=== PATIENT | female | born 1990 | race Caucasian/White ===

== ENCOUNTER 2017-01-02 17:49 | Emergency (ER) | payer MEDICAID ==
[~2017-01-02] VITALS: Ht 162.6 cm; Wt 90.7 kg
--- OUTSIDE RECORDS SUMMARY | 2017-01-02 17:55 | XMS REPORT ---
Author Author RENETTA DASILVA Organization [employer] Address Unknown Phone Unavailable Care Team Providers Care Underwriting Consultant Name Role Phone RENETTA DASILVA CP Unavailable Allergies, Adverse Reactions, Alerts Substance Reaction Event Type N.K.D.A. Info Not Available Non Drug Allergy Problems Problem Type Condition Code Onset Dates Condition Status Problem Migraine without aura and with status migrainosus, not intractable G43.001 Active Problem Morbid obesity due to excess calories E66.01 Active Problem Obesity (BMI 30-39.9) E66.9 Active Problem Lumbago with sciatica, right side M54.41 Active Problem Other chronic pain G89.29 Active Problem Lumbago with sciatica, left side M54.42 Active Problem Family history of hypertension Z82.49 Active Problem History of substance abuse Z87.898 Active Problem Routine health maintenance Z00.00 Active Problem Family history of diabetes mellitus Z83.3 Active Assessment Nonintractable headache, unspecified chronicity pattern, unspecified headache type R51 Active Problem Family history of migraine Z82.0 Active Problem Gastroesophageal reflux disease without esophagitis K21.9 Active Medications Medication Code System Code Instructions Start Date End Date Status Dosage Ibuprofen [facility] [address]-00 400 MG Orally Three times a day 1 tablet Tylenol Extra Strength [facility] [address]-18 500 MG Orally every 6 hrs 2 tablets as needed Procedures Procedure Coding System Code Date THER/PROPH/DIAG INJ, SC/IM CPT-4 58238 Dec 10, 2015 Office Visit, Est Pt., Level 3 CPT-4 79341 Dec 10, 2015 TORADOL (IM) 15 MG/ML (UP TO 15 MG) CPT-4 J1885 Dec 10, 2015 Vital Signs Date/Time: Dec 10, 2015 Cardiac Monitoring Heart Rate 88 bpm Weight 218.0 lbs Height 64.5 in BMI 36.84 Index Blood Pressure Diastolic 72 mmHg Blood Pressure Systolic 116 mmHg Results No Known Results Summary Purpose [employer] Submission
--- OUTSIDE RECORDS SUMMARY | 2017-01-02 17:58 | XMS REPORT | Clinical Summary ---
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 MG TABS [id number] METRONIDAZOLE Inactive AMOXICILLIN 500 MG TABS Take one tab by mouth 3 times daily, morning, afternoon and evening for 7 days. AMOXICILLIN 500 MG TABS [id number] AMOXICILLIN Inactive AMOXICILLIN 500 MG CAPS 2 po BID x 10 days AMOXICILLIN 500 MG CAPS [id number] AMOXICILLIN Inactive AMOXICILLIN 500 MG CAPS 2 po BID x 10 days AMOXICILLIN 500 MG CAPS 930845 AMOXICILLIN Inactive PENICILLIN V POTASSIUM 500 MG TABS 1 TID PENICILLIN V POTASSIUM 500 MG TABS 668273 PENICILLIN V POTASSIUM Inactive BACTRIM DS 800-160 MG TABS 1 po BID x 10 days BACTRIM DS 800-160 MG TABS 715315 SULFAMETHOXAZOLE-TRIMETHOPRIM Inactive ZITHROMAX 250 MG TAB 2 po today, then 1 po q days 2-5 ZITHROMAX 250 MG TAB [id number] AZITHROMYCIN Inactive TAMIFLU 75 MG CAPS 1 bid x 5 days TAMIFLU 75 MG CAPS 951964 OSELTAMIVIR PHOSPHATE Inactive AZITHROMYCIN 250 MG TABS 2 po qd x 1 day, then 1 po qd x 4 days AZITHROMYCIN 250 MG TABS [id number] AZITHROMYCIN Inactive MEDROL (NISA) 4 MG TABS 6 tabs on day 1, 5 tabs on day 2, 4 tabs on day 3, 3 tabs on day 4, 2 tabs on day 5, 1 tab on day 6 MEDROL ( NISA) 4 MG TABS 028487 METHYLPREDNISOLONE Inactive SUPRAX 400 MG CAPS Take one tablet twice daily for 7 days SUPRAX 400 MG CAPS CEFIXIME Inactive AMITRIPTYLINE HCL 50 MG TAB 1 po q hs for sleep AMITRIPTYLINE HCL 50 MG TAB 399194 AMITRIPTYLINE HCL Inactive ZITHROMAX 250 MG TAB 2 po today, then 1 po q days 2-5 ZITHROMAX 250 MG TAB [id number] AZITHROMYCIN Inactive Immunizations Vaccine Administration Date Value Standard Description Seasonal influenza vaccine, injectable, containing preservative, for > 3 years old (Afluria, FluLaval, Fluzone, Fluvirin, Fluarix, Agriflu(>=18 yo)) Fluzone (>3 yrs.) [[id number]] Influenza, seasonal, injectable pneumococcal immunization administered Pneumovax 23 [CVX33] pneumococcal polysaccharide vaccine, 23 valent Seasonal influenza vaccine, injectable, containing preservative, for > 3 years old (Afluria, FluLaval, Fluzone, Fluvirin, Fluarix, Agriflu(>=18 yo)) Fluzone (>3 yrs.) [[id number]] Influenza, seasonal, injectable Seasonal influenza vaccine, injectable, containing preservative, for > 3 years old (Afluria, FluLaval, Fluzone, Fluvirin, Fluarix, Agriflu(>=18 yo)) Fluzone (>3 yrs.) [IIE303] Influenza, seasonal, injectable hepatitis B vaccine #1 given Engerix-B Adult hepatitis B vaccine , unspecified formulation MPSV4 (meningococcal polysaccharide vaccination) Menactra meningococcal polysaccharide vaccine (MPSV4) hepatitis A immunization #1 Havrix-Adult hepatitis A vaccine, unspecified formulation dT (Diphtheria and Tetanus) booster given Historical Td(adult) unspecified formulation DPT immunization #5 Historical oral polio vaccine (OPV) #3 Historical poliovirus vaccine, unspecified formulation MMR (measles, mumps, rubella) virus immunization #2 Historical DPT immunization #4 DPT DPT immunization #3 DPT DPT immunization #2 DPT oral polio vaccine (OPV) #2 Historical poliovirus vaccine, unspecified formulation MMR (measles, mumps, rubella) virus immunization #1 Historical DPT immunization #1 DPT oral polio vaccine (OPV) #1 Historical poliovirus vaccine, unspecified formulation Vital Signs Date Name Value Unit Range Description blood pressure, diastolic - 8462-4 102 mm[Hg] BP jorge blood pressure, systolic - 8480-6 135 mm[Hg] BP sys height E&M - 8302-2 64 [in_us] Bdy height pulse rate E&M - 8867-4 106 /min Heart rate temperature E&M 98.8 [degF] Body temperature weight E&M - 3141-9 233.31 [lb_av] Weight Measured blood pressure, diastolic - 8462-4 90 mm[Hg] BP jorge blood pressure, systolic - 8480-6 137 mm[Hg] BP sys pulse rate E&M - 8867-4 94 /min Heart rate temperature E&M 98.5 [degF] Body temperature weight E&M - 3141-9 246.5 [lb_av] Weight Measured blood pressure, diastolic - 8462-4 73 mm[Hg] BP jorge blood pressure, systolic - 8480-6 138 mm[Hg] BP sys pulse rate E&M - 8867-4 106 /min Heart rate temperature E&M 98.3 [degF] Body temperature weight E&M - 3141-9 250 [lb_av] Weight Measured Diagnostic Results Date Name Value Unit Range Description Lab Report: Basic Metabolic Panel - Chemistry sodium, serum 144 mmol/L 158-429 4534/06/08 potassium, serum 4.3 mmol/L 3.5-5.2 chloride, serum 104 mmol/L 98-107 carbon dioxide, venous blood 28.2 mmol/L 21.0-32.0 blood glucose 86 mg/dL 65-110 calcium, serum 9.7 mg/dL 8.5-10.1 urea nitrogen, blood 13 mg/dL 7-18 creatinine, serum 0.66 mg/dL 0.55-1.30 Lab Report: [id number] - Chemistry hemoglobin A1C, blood, as % of total hemoglobin 5.3 % 4.3-6.0 Encounters Code Encounter Date Provider Facility CPT-77351 Level 4 Est. Patient 14:18:58 CDT Corky Mckeno DO [facility] CPT-27868 Level 3 Est. Patient 16:47:47 CDT Renetta Ryan [facility] CPT-43242 Level 3 Est. Patient 11:04:11 METAL PAINTER Jani Marrero MD [facility] CPT-18728 Level 3 Est. Patient 12:02:27 METAL PAINTER Andrei Nichols MD [facility] CPT-69402 Level 3 Est. Patient 12:47:17 METAL PAINTER Andrei Nichols MD [facility] CPT-56472 Level 3 Est. Patient 14:51:20 METAL PAINTER Shikha Randolph [facility] CPT-86777 Level 3 Est. Patient 10:42:38 CDT Shikha Randolph [facility] CPT-45395 Level 3 Est. Patient 18:20:39 CDT Prisca Lockwood MD PhD [facility] CPT-78160 Level 3 Est. Patient 16:42:47 METAL PAINTER Rosalie Boyd [facility] CPT-31090 Level 3 Est. Patient 14:34:36 METAL PAINTER Rosalie Boyd [facility] CPT-34261 Level 4 Est. Patient 10:23:07 METAL PAINTER Andrei Nichols MD [facility]-20337 Level 3 Est. Patient 16:47:31 METAL PAINTER Andrei Nichols MD [facility]-67754 Level 3 Est. Patient 11:59:14 CDT Rosalie Boyd [facility]-54722 Level 3 Est. Patient 15:30:34 CDT Giovany URBINA [facility]-48103 Level 3 Est. Patient 11:03:03 CDT Rosalie Boyd [facility]-54108 Level 3 Est. Patient 11:08:07 CDT Rosalie Boyd [facility] CPT-39718 Level 3 Est. Patient 14:07:32 CDT Andrei Nichols MD [facility]-67262 Level 3 Est. Patient 17:08:28 CDT Andrei Nichols MD [facility]-59670 Level 3 Est. Patient 13:10:13 CDT Jani Marrero MD [facility]-26319 Level 3 Est. Patient 11:27:12 CDT Jani Marrero MD [facility]-09222 Level 3 Est. Patient 13:44:42 CDT Andrei Nichols MD [facility]-70453 Level 3 Est. Patient 12:34:57 METAL PAINTER Andrei Nichols MD [facility]-15843 Level 3 Est. Patient 15:30:06 CDT Jani Marrero MD [facility] CPT-65862 Level 3 Est. Patient 21:59:00 CDT Corky Juliann Mike HARDIN [facility] CPT-18325 Level 3 Est. Patient 17:12:49 CDT Andrei Nichols MD [facility] CPT-67391 Level 4 Est. Patient 12:27:45 METAL PAINTER Andrei Nichols MD [facility] CPT-08875 Level 3 Est. Patient 12:15:34 METAL PAINTER Andrei Nichols MD [facility] Procedures Code Procedure Name Date Entry Date Standard Description CPT-68897 Knee, left, 3V - XRAY USE ONLY 14:53:02 CDT CPT-OV Office Visit 11:36:40 CDT CPT-49864 Administration 2+ single or combination vaccines inc oral 07:50:30 CDT CPT-89618 Administration single or combination vaccine inc oral 07 :50:30 CDT CPT-71773 Pneumovax 07:50:30 CDT CPT-51281 Influenza split virus > age 3 07:50:30 CDT CPT-OV Office Visit 11:49:10 METAL PAINTER CPT-55650 Nexplanon Removal with Reinsertion 14:02:06 METAL PAINTER CPT-J7307 Nexplanon (Implant) 14:02:06 METAL PAINTER CPT-OV Office Visit 14:02:06 METAL PAINTER CPT-OV Office Visit 11:58:04 METAL PAINTER CPT-59185 Administration single or combination vaccine inc oral 11 :31:07 CDT CPT-49890 Influenza split virus > age 3 11:31:07 CDT CPT-68818 Administration single or combination vaccine inc oral 10 :34:13 CDT CPT-90831 Influenza split virus > age 3 10:34:13 CDT
--- OUTSIDE RECORDS SUMMARY | 2017-01-02 17:58 | XMS REPORT ---
Author Author [facility] [employer] [facility] Medical Staff Organization [facility] Address [address], [place] [id number] Phone [phone] Care Team Providers Care Yarn Conditioner Name Role Phone FELIPE MONROE MD PP [phone] Summary purpose TRANSITION OF CARE AUTO GENERATION Chief Complaint and Reason for Visit No authorized Reason for Visit (Admitting Diagnosis) is available for this visit. Problem list No authorized problems tracked for continuity of care are available for this visit. Encounters No authorized problems tracked for encounter diagnoses are available for this visit. Medications No medications recorded for this patient visit Allergies, adverse reactions, alerts Allergen Category Ingredient Status Reaction Severity Onset No Known Drug Allergy No known drug allergies No known drug allergies Confirmed or Verified Immunizations No immunizations recorded for this patient visit Relevant diagnostic tests and/or laboratory data RESULTS Radiology Results [id number] HAND XRAY - 3 VIEW PACs Image DATE OF EXAM: Jan 29 2015 RAD 0730-HAND XRAY-3 VIEW- LEFT: RADIOLOGY REPORT DATE OF SERVICE: 01/29/15 HISTORY: Hand injury with laceration LEFT HAND 3 VIEWS 0310 HOURS There is no fracture. There are no opaque foreign bodies. The soft tissues appear unremarkable. IMPRESSION: Normal hand. MD HILLARY Gonzales/nm01/29/2015 07:51:00 / 01/29/2015 08:12:51 cc:Dr. Felipe Monroe This document has been electronically Signed by: On: DATE OF EXAM: Jan 29 2015 RAD 0730-HAND XRAY-3 VIEW- LEFT: RADIOLOGY REPORT DATE OF SERVICE: 01/29/15 HISTORY: Hand injury with laceration LEFT HAND 3 VIEWS 0310 HOURS There is no fracture. There are no opaque foreign bodies. The soft tissues appear unremarkable. IMPRESSION: Normal hand. MD HILLARY Gonzales/mayda01/29/2015 07:51:00 / 01/29/2015 08:12:51 cc:Dr. Felipe Monroe This document has been electronically Signed by: SUE MITCHELL MD: Jan 29 2015 11:08A Result Amended on 2015-01-29 at 11:08:15. Previous status was [place]. History of procedures No procedures recorded for this patient visit. Functional status Functional Status Finding Observation Time Abdomen Appearance round :25 Abdomen soft :25 Kapoor no :25 Urination normal : Quality sym/unlabored : Cough absent : Secretions no : Airway natural : Chest Tube no : Oxygen no :36 Temp >100.4 no : Temp <96.8 no : Chills with rigors no : HR > 90bpm no : Respirations > 20 no : Systolic <90 no : headache stiff neck no : Rapid Resp no : Nursing Note DC instructions given with noted high anxiety. Friend at bedside et voiced an understanding of instructions as well as pt. Pt ambulated in good condition with instructions in hand along with scripts of hydrocodone, augmenten et home pk of hydrocodone. :36 Vital signs Type Value Date Respiration Rate 22breaths per minute :36 Pulse 82beats per minute :36 Oxygen Saturation 100% :36 BP Systolic 128mmHg :36 BP Diastolic 79mmHg :36 Temperature 98.3F :36 Height 64inches : Weight 167.4LB :17 Social history No Social History or smoking status observations were recorded for this visit. ( Unknown if ever smoked.) Treatment Plan No treatment plan text is available for this visit. Hospital discharge instructions Dismissal Condition good Disposition on DC home DC Inst/Educ Give yes Med/Side Effects Rev yes Flu Vac 2015 Tetanus Vac Not current
--- OUTSIDE RECORDS SUMMARY | 2017-01-02 18:00 | XMS REPORT | Clinical Summary ---
Author Author Admin, E Organization [facility] Address Unknown Phone Unavailable Allergies, Adverse Reactions, [...] Sinusitis, frontal, acute 461.1 Resolved Shikha Yokum EVENT DECORATOR AND DESIGNER Acute frontal sinusitis Pharyngitis 462 Resolved Shikha Yokum EVENT DECORATOR AND DESIGNER Acute pharyngitis Scabies 133.0 Resolved Shikha Yokum EVENT DECORATOR AND DESIGNER Scabies Folliculitis 704.8 Resolved Shikha Yokum EVENT DECORATOR AND DESIGNER Other specified diseases of hair and hair follicles Cough 786.2 Resolved Andrei Nichols MD Cough Dysuria 788.1 Active Shikha Randolph APRN Dysuria Vomiting 787.03 Active Andrei Nichols MD Vomiting alone Pharyngitis 462 Active Andrei Nichols MD Acute pharyngitis SINUSITIS, ACUTE 461.9 Active Jani Marrero MD Acute sinusitis, unspecified PEDICULUS CAPITIS ICD-132.0 Inactive Andrei Nichols MD [...] Inactive Ary Pool PA ECZEMA ICD-692.9 Inactive Shikha Randolph EVENT DECORATOR AND DESIGNER OTITIS MEDIA ICD-382.9 Inactive Ary URBINA 09/16 PHARYNGITIS ICD-462 Inactive Andrei Nichols MD UNSPECIFIED DISORDER TEETH&SUPPORTING STRUCTURES ICD-525.9 12/29 Inactive Shikha Randolph EVENT DECORATOR AND DESIGNER PHARYNGITIS-ACUTE ICD-462 Inactive Rosalie Boyd EVENT DECORATOR AND DESIGNER DIARRHEA ICD-787.91 Inactive Andrei Nichols MD SHOULDER PAIN ICD-719.41 Inactive Shikha Randolph EVENT DECORATOR AND DESIGNER NAUSEA AND VOMITING ICD-787.01 Inactive Andrei Nichols MD DIARRHEA, ACUTE ICD-787.91 Inactive Andrei Nichols MD ABSCESS, SKIN ICD-682.9 Inactive Andrei Nichols MD COUGH ICD-786.2 Inactive Prisca Lockwood MD PhD 07/08 SEXUAL ACTIVITY, HIGH RISK ICD-V69.2 Inactive Prisca Lockwood MD PhD VAGINAL DISCHARGE ICD-623.5 Inactive rPisca Lockwood MD PhD TINEA PEDIS ICD-110.4 Inactive Prisca Lockwood MD PhD Pharyngitis, acute ICD-462 Inactive Prisca Lockwood MD PhD Diarrhea, acute ICD-787.91 Inactive Prisca Lockwood MD PhD Dental caries ICD-521.00 Inactive Shikha Randolph EVENT DECORATOR AND DESIGNER Tooth pain ICD-525.9 Inactive Prisca Lockwood MD PhD Head lice ICD-132.0 Inactive Prisca Lockwood MD PhD Upper respiratory infection ICD-465.9 Inactive Prisca Lockwood MD PhD Sinusitis, frontal, acute ICD-461.1 Inactive Shikha Randolph EVENT DECORATOR AND DESIGNER Pharyngitis ICD-462 Inactive Shikha Yokum EVENT DECORATOR AND DESIGNER 2013 Scabies ICD-133.0 Inactive Shikha Lockeum EVENT DECORATOR AND DESIGNER 12/29 Folliculitis ICD-704.8 Inactive Shikha Randolph EVENT DECORATOR AND DESIGNER Cough ICD-786.2 Inactive Andrei Nichols MD Medication List Medication Instructions Start Date Stop Date Generic Name NDC Status Provider Patient Instruction ZITHROMAX 250 MG TAB 2 po today, then 1 po q days 2-5 AZITHROMYCIN [id number] Active Jani Marrero MD Active IBUPROFEN 800 MG TABS 1 tab PO TID IBUPROFEN 32621570640 Active Jani Marrero MD Active WELLBUTRIN SR 100 MG ORAL [id number] 1 TAB PO DAILY BUPROPION HCL 27111699240 Active Jani Marrero MD Active AMITRIPTYLINE HCL 50 MG TAB 1 po q hs for sleep AMITRIPTYLINE HCL 14683997899 Active Jani Marrero MD Active PROMETHAZINE HCL 25 MG TABS 1 four times a day as needed for vomiting PROMETHAZINE HCL 25409540271 No Longer Active Jani Marrero MD Active AMOXICILLIN 500 MG TABS 2 tabs twice a day for 10 days AMOXICILLIN 73747302292 No Longer Active Jani Marrero MD Active SEROQUEL 200 MG ORAL TABS Take 1 tablet at hs QUETIAPINE FUMARATE 02867063369 No Longer Active Jani Marrero MD Active FETZIMA 40 MG ORAL [id number] LEVOMILNACIPRAN HCL 37955051268 No Longer Active Jani Marrero MD Active PROAIR HFA 108 (90 BASE) MCG/ACT AERS 2 puffs four times a day as needed 2015 ALBUTEROL SULFATE 31410794430 Active Andrei Nichols MD Active KLONOPIN 1 MG TABS 1 tablet TID CLONAZEPAM 83741636354 Active Andrei Nichols MD Active PROAIR HFA 108 (90 BASE) MCG/ACT AERS 2 puffs four times a day as needed 2011 ALBUTEROL SULFATE 89153663844 No Longer Active Alondra Denton MD Active IBUPROFEN 600 MG TAB 1 tablet three times a day as needed IBUPROFEN 60543118929 No Longer Active Alondra Denton MD Active LATUDA 20 MG TABS 1 tab at at night with meal LURASIDONE HCL 74405714360 No Longer Active Alondra Denton MD Active CYCLOBENZAPRINE HCL 10 MG TABS 1/2 to 1 tablet every 4 hours CYCLOBENZAPRINE HCL 34631075952 No Longer Active Alondra Denton MD Active CYCLOBENZAPRINE HCL 10 MG TABS 1/2 to 1 tablet by mouth three times daily as needed for muscle spasm/pain CYCLOBENZAPRINE HCL 00309942150 No Longer Active Alondra Denton MD Active SUPRAX 400 MG CAPS Take one tablet twice daily for 7 days CEFIXIME 35401706138 No Longer Active Shikha Yokum EVENT DECORATOR AND DESIGNER Active TESSALON PERLES 100 MG CAP 1 tablet by mouth 3 times daily 01/20 BENZONATATE 13130810267 No Longer Active Shikha Yokum EVENT DECORATOR AND DESIGNER Active HYDROXYZINE HCL 10 MG TABS 1 to 2 three times a day as needed for itching HYDROXYZINE HCL 89766206238 No Longer Active Shikha Yokum EVENT DECORATOR AND DESIGNER Active CYCLOBENZAPRINE HCL 10 MG TABS 1 three times a day as needed for back spasm CYCLOBENZAPRINE HCL 49187236690 No Longer Active Shikha Yokum EVENT DECORATOR AND DESIGNER Active SEROQUEL 200 MG TABS 1 tablet at bedtime. QUETIAPINE FUMARATE 82373398526 No Longer Active Shikha Yokum EVENT DECORATOR AND DESIGNER Active BACTRIM DS 800-160 MG TAB 1 tab by mouth twice daily TRIMETHOPRIM-SULFAMETHOXAZOLE 97781676086 No Longer Active Shikha Yokum EVENT DECORATOR AND DESIGNER Active STROMECTOL 3 MG TABS 5 tablets by mouth one time on an empty stomach, may repeat in 2 weeks if needed IVERMECTIN 54221795179 No Longer Active Shikha Yokum EVENT DECORATOR AND DESIGNER Active PERMETHRIN 5 % CREA apply neck to toes tonight and then rinse off in morning. repeat at 7 days PERMETHRIN 73254465338 No Longer Active Andrei Nichols MD Active MEDROL (NISA) 4 MG TABS 6 tabs on day 1, 5 tabs on day 2, 4 tabs on day 3, 3 tabs on day 4, 2 tabs on day 5, 1 tab on day 6 METHYLPREDNISOLONE 92366208326 No Longer Active Prisca Lockwood MD PhD Active AZITHROMYCIN 250 MG TABS 2 po qd x 1 day, then 1 po qd x 4 days AZITHROMYCIN 48435894344 No Longer Active Prisca Lockwood MD PhD Active CELEXA 20 MG TABS Take 1.5 tablets daily CITALOPRAM HYDROBROMIDE 47089470067 No Longer Active Prisca Lockwood MD PhD Active LOMOTIL 2.5-0.025 MG TAB 1 to 2 four times a day as needed for diarrhea 01/21 DIPHENOXYLATE-ATROPINE 83926592354 No Longer Active Prisca Lockwood MD PhD Active TAMIFLU 75 MG CAPS 1 bid x 5 days OSELTAMIVIR PHOSPHATE 45072539781 No Longer Active Rosalie Boyd APRN Active ZITHROMAX 250 MG TAB 2 po today, then 1 po q days 2-5 AZITHROMYCIN 15919045479 No Longer Active Rosalie Boyd APRN Active STROMECTOL 3 MG TABS 6 pills by mouth x 1; repeat in 10 days 2012 IVERMECTIN 49726552192 No Longer Active Rosalie Boyd APRN Active TYLENOL WITH CODEINE #3 300-30 MG TABS ONE TABLET FOUR TIMES A DAY NEEDED for pain or cough ACETAMINOPHEN-CODEINE 63273870928 No Longer Active Rosalie Boyd APRN Active GUAIFENESIN-CODEINE 100-10 MG/5ML SYRP 1 tsp PO q6h PRN cough GUAIFENESIN-CODEINE 62620290751 No Longer Active Rosalie Boyd APRN Active KEFLEX 500 MG CAP 1 po qid CEPHALEXIN 94911447269 No Longer Active Rosalie Boyd APRN Active GUAIFENESIN-CODEINE 100-10 MG/5ML SYRP 1 tsp PO q6h PRN cough GUAIFENESIN-CODEINE 16385341299 No Longer Active Rosalie Boyd APRN Active PROMETHAZINE HCL 25 MG TABS 1 four times a day as needed for nausea/vomiting PROMETHAZINE HCL 67528800436 No Longer Active Rosalie Boyd APRN Active LAMISIL AT 1 % CREA apply bid to rash TERBINAFINE HCL 57366727925 No Longer Active Andrei Nichols MD Active AMOXICILLIN 400 MG/5ML SUSR 6ml three times a day for 10 days AMOXICILLIN 78230740547 No Longer Active Andrei Nichols MD Active PROMETHAZINE HCL 25 MG TABS take 1 po Q 8 hours prn nausea and vomiting 12/11 PROMETHAZINE HCL 13640317750 No Longer Active Andrei Nichols MD Active BACTROBAN 2 % OINTMENT Apply bid to affected area MUPIROCIN 24440692153 No Longer Active Andrei Nichols MD Active GUAIFENESIN-CODEINE 100-10 MG/5ML SYRP 1 tsp PO q6h PRN cough GUAIFENESIN-CODEINE 96216659012 No Longer Active Andrei Nichols MD Active BACTRIM DS 800-160 MG TABS 1 po BID x 10 days SULFAMETHOXAZOLE-TRIMETHOPRIM 76042766100 No Longer Active Rosalie Boyd APRN Active GUAIFENESIN-CODEINE 100-10 MG/5ML SYRP 1-2 tsp PO q6h PRN cough GUAIFENESIN-CODEINE 08039007389 No Longer Active Giovany URBINA Active PREDNISONE 20 MG TABS 1 tablet by mouth twice daily for 2 days, then 1 daily for 2 days PREDNISONE 41509922513 No Longer Active Giovany URBINA Active HYDROCODONE-ACETAMINOPHEN 5-325 MG TABS 1/2 to 1 po q 4 hours prn pain 11/13 HYDROCODONE-ACETAMINOPHEN 71145728966 No Longer Active Rosalie Boyd APRN Active PENICILLIN V POTASSIUM 500 MG TABS 1 TID PENICILLIN V POTASSIUM 18803952716 No Longer Active Andrei Nichols MD Active SEROQUEL 50 MG TABS 1 tablet at HS QUETIAPINE FUMARATE 77157588619 No Longer Active Andrei Nichols MD Active SEROQUEL 100 MG TABS 1 tablet at HS QUETIAPINE FUMARATE 17892874840 No Longer Active Andrei Nichols MD Active TRIAMCINOLONE ACETONIDE 0.1 % CREA apply three times daily prn rash TRIAMCINOLONE ACETONIDE 31915405291 No Longer Active Andrei Nichols MD Active AMOXICILLIN 500 MG TABS take one tab po tid x 10 days AMOXICILLIN 17313771838 No Longer Active Andrei Nichols MD Active CELEXA 20 MG TABS 1and 1/2 tablets by mouth daily CITALOPRAM HYDROBROMIDE 67728765032 No Longer Active Ary Pool PA Active FLEXERIL 10 MG TAB 1/2 to one tablet every 12 hours as needed CYCLOBENZAPRINE HCL 78554730912 No Longer Active Ary Pool PA Active CLONAZEPAM 1 MG TABS take at bedtime CLONAZEPAM 86637167911 No Longer Active Ary Pool PA Active PERMETHRIN 5 % CREA applyhead to toes tonight and then rinse off in 18 hours. repeat at 7 days if needed. PERMETHRIN 06933841915 No Longer Active Ary Pool PA Active AMOXICILLIN 500 MG CAPS 2 po BID x 10 days AMOXICILLIN 04749482863 No Longer Active Andrei Nichols MD Active TYLENOL WITH CODEINE #3 300-30 MG TABS 1 to 2 four times a day as needed for pain ACETAMINOPHEN-CODEINE 64147496956 No Longer Active Reta Memo Active PREDNISONE 20 MG TAB 2 tabs daily for 5 days, then 1 daily for 5 days PREDNISONE 56741506609 No Longer Active Reta Memo Active LOMOTIL 2.5-0.025 MG TAB 1 to 2 four times a day as needed for diarrhea 05/28 DIPHENOXYLATE-ATROPINE 08466524926 No Longer Active Reta Memo Active ALPRAZOLAM 1 MG TABS 1 tab tid ALPRAZOLAM 45254893581 No Longer Active Reta Memo Active AMOXICILLIN 500 MG CAPS 2 po BID x 10 days AMOXICILLIN 64069732641 No Longer Active Andrei Nichols MD Active AMOXICILLIN 500 MG TABS Take one tab by mouth 3 times daily, morning, afternoon and evening for 7 days. AMOXICILLIN 48838406651 No Longer Active Virginia Alejandra RN Active VICODIN 5-300 MG TABS one tab PO Q 6 hours PRN pain HYDROCODONE-ACETAMINOPHEN 87977952284 No Longer Active Virginia Alejandra RN Active FLAGYL 500 MG TABS four tabs PO one time METRONIDAZOLE 52389530932 No Longer Active Alondra Denton MD Active MELOXICAM 15 MG TABS 1 po q day for pain with food MELOXICAM 89659169794 No Longer Active Alondra Denton MD Active AMOXICILLIN 400 MG/5ML SUSR 5ml po TID x 10 days AMOXICILLIN 99438692173 No Longer Active Jani Marrero MD Active NIX CREME RINSE 1 % LIQD apply as directed carlotta, repeat at 7 days PERMETHRIN 77820476411 No Longer Active Corky Mckeon DO Active QVAR 40 MCG/ACT AERS one puff three times a day as needed BECLOMETHASONE DIPROPIONATE 76365472837 No Longer Active Andrei Nichols MD Active METHOCARBAMOL 500 MG TABS 1 to 2 qid prn back spasm METHOCARBAMOL 93428198061 No Longer Active Andrei Nichols MD Active VISTARIL 25 MG CAPS 1-2 tablets three times a day as needed HYDROXYZINE PAMOATE 18564666430 No Longer Active Andrei Nichols MD Active SEROQUEL 100 MG TABS 1/2 TABLET at hs QUETIAPINE FUMARATE 78413577117 No Longer Active Aicha Rizzo RN Active BACTRIM DS 800-160 MG TAB 1 tab by mouth twice daily TRIMETHOPRIM-SULFAMETHOXAZOLE 74869434971 No Longer Active Prisca Lockwood MD PhD Active CYCLOBENZAPRINE HCL 10 MG TABS TAKE 1/2 - 1 TAB EVERY 12 HOURS NEEDED 2010 CYCLOBENZAPRINE HCL 58173147894 No Longer Active Andrei Nichols MD Active CYCLOBENZAPRINE HCL 10 MG TABS TAKE 1/2 - 1 TAB EVERY 12 HOURS NEEDED 2010 CYCLOBENZAPRINE HCL 10 MG TABS 069908 CYCLOBENZAPRINE HCL Inactive SEROQUEL 100 MG TABS 1/2 TABLET at hs SEROQUEL 100 MG TABS 911799 QUETIAPINE FUMARATE Inactive VISTARIL 25 MG CAPS 1-2 tablets three times a day as needed VISTARIL 25 MG CAPS 897154 HYDROXYZINE PAMOATE Inactive METHOCARBAMOL 500 MG TABS 1 to 2 qid prn back spasm METHOCARBAMOL 500 MG TABS 252180 METHOCARBAMOL Inactive QVAR 40 MCG/ACT AERS one puff three times a day as needed QVAR 40 MCG/ACT AERS BECLOMETHASONE DIPROPIONATE Inactive NIX CREME RINSE 1 % LIQD apply as directed tonight, repeat at 7 days NIX CREME RINSE 1 % LIQD PERMETHRIN Inactive MELOXICAM 15 MG TABS 1 po q day for pain with food MELOXICAM 15 MG TABS 763621 MELOXICAM Inactive ALPRAZOLAM 1 MG TABS 1 tab tid ALPRAZOLAM 1 MG TABS 039289 ALPRAZOLAM Inactive LOMOTIL 2.5-0.025 MG TAB 1 to 2 four times a day as needed for diarrhea 05/28 LOMOTIL 2.5-0.025 MG TAB 5814043 DIPHENOXYLATE-ATROPINE Inactive PREDNISONE 20 MG TAB 2 tabs daily for 5 days, then 1 daily for 5 days PREDNISONE 20 MG TAB 190440 PREDNISONE Inactive TYLENOL WITH CODEINE #3 300-30 MG TABS 1 to 2 four times a day as needed for pain TYLENOL WITH CODEINE #3 300-30 MG TABS 473927 ACETAMINOPHEN-CODEINE Inactive PERMETHRIN 5 % CREA applyhead to toes tonight and then rinse off in 18 hours. repeat at 7 days if needed. PERMETHRIN 5 % CREA 840681 PERMETHRIN Inactive CLONAZEPAM 1 MG TABS take at bedtime CLONAZEPAM 1 MG TABS 711043 CLONAZEPAM Inactive FLEXERIL 10 MG TAB 1/2 to one tablet every 12 hours as needed FLEXERIL 10 MG TAB CYCLOBENZAPRINE HCL Inactive CELEXA 20 MG TABS 1and 1/2 tablets by mouth daily CELEXA 20 MG TABS 006152 CITALOPRAM HYDROBROMIDE Inactive AMOXICILLIN 500 MG TABS take one tab po tid x 10 days AMOXICILLIN 500 MG TABS 742274 AMOXICILLIN Inactive TRIAMCINOLONE ACETONIDE 0.1 % CREA apply three times daily prn rash TRIAMCINOLONE ACETONIDE 0.1 % CREA 9475409 TRIAMCINOLONE ACETONIDE Inactive SEROQUEL 100 MG TABS 1 tablet at HS SEROQUEL 100 MG TABS 489819 QUETIAPINE FUMARATE Inactive SEROQUEL 50 MG TABS 1 tablet at HS SEROQUEL 50 MG TABS 439354 QUETIAPINE FUMARATE Inactive HYDROCODONE-ACETAMINOPHEN 5-325 MG TABS 1/2 to 1 po q 4 hours prn pain 11/13 HYDROCODONE-ACETAMINOPHEN 5-325 MG TABS 792395 HYDROCODONE- ACETAMINOPHEN Inactive PREDNISONE 20 MG TABS 1 tablet by mouth twice daily for 2 days, then 1 daily for 2 days PREDNISONE 20 MG TABS 976177 PREDNISONE Inactive GUAIFENESIN-CODEINE 100-10 MG/5ML SYRP 1-2 tsp PO q6h PRN cough GUAIFENESIN-CODEINE 100-10 MG/5ML SYRP 377385 GUAIFENESIN-CODEINE Inactive GUAIFENESIN-CODEINE 100-10 MG/5ML SYRP 1 tsp PO q6h PRN cough GUAIFENESIN-CODEINE 100-10 MG/5ML SYRP 607784 GUAIFENESIN-CODEINE Inactive BACTROBAN 2 % OINTMENT Apply bid to affected area BACTROBAN 2 % OINTMENT 105683 MUPIROCIN Inactive PROMETHAZINE HCL 25 MG TABS take 1 po Q 8 hours prn nausea and vomiting 12/11 PROMETHAZINE HCL 25 MG TABS 067787 PROMETHAZINE HCL Inactive AMOXICILLIN 400 MG/5ML SUSR 6ml three times a day for 10 days AMOXICILLIN 400 MG/5ML SUSR 388746 AMOXICILLIN Inactive LAMISIL AT 1 % CREA apply bid to rash LAMISIL AT 1 % CREA 412547 TERBINAFINE HCL Inactive PROMETHAZINE HCL 25 MG TABS 1 four times a day as needed for nausea/vomiting PROMETHAZINE HCL 25 MG TABS 782220 PROMETHAZINE HCL Inactive GUAIFENESIN-CODEINE 100-10 MG/5ML SYRP 1 tsp PO q6h PRN cough GUAIFENESIN-CODEINE 100-10 MG/5ML SYRP 652704 GUAIFENESIN-CODEINE Inactive KEFLEX 500 MG CAP 1 po qid KEFLEX 500 MG CAP 886382 CEPHALEXIN Inactive GUAIFENESIN-CODEINE 100-10 MG/5ML SYRP 1 tsp PO q6h PRN cough GUAIFENESIN-CODEINE 100-10 MG/5ML SYRP 616322 GUAIFENESIN-CODEINE Inactive TYLENOL WITH CODEINE #3 300-30 MG TABS ONE TABLET FOUR TIMES A DAY NEEDED for pain or cough TYLENOL WITH CODEINE #3 300-30 MG TABS 016781 ACETAMINOPHEN-CODEINE Inactive STROMECTOL 3 MG TABS 6 pills by mouth x 1; repeat in 10 days 2012 STROMECTOL 3 MG TABS 599103 IVERMECTIN Inactive LOMOTIL 2.5-0.025 MG TAB 1 to 2 four times a day as needed for diarrhea 01/21 LOMOTIL 2.5-0.025 MG TAB 6816501 DIPHENOXYLATE-ATROPINE Inactive CELEXA 20 MG TABS Take 1.5 tablets daily CELEXA 20 MG TABS 150523 CITALOPRAM HYDROBROMIDE Inactive PERMETHRIN 5 % CREA apply neck to toes tonight and then rinse off in morning. repeat at 7 days PERMETHRIN 5 % CREA 524618 PERMETHRIN Inactive STROMECTOL 3 MG TABS 5 tablets by mouth one time on an empty stomach, may repeat in 2 weeks if needed STROMECTOL 3 MG TABS 268377 IVERMECTIN Inactive BACTRIM DS 800-160 MG TAB 1 tab by mouth twice daily BACTRIM DS 800-160 MG TAB 949375 TRIMETHOPRIM-SULFAMETHOXAZOLE Inactive SEROQUEL 200 MG TABS 1 tablet at bedtime. SEROQUEL 200 MG TABS 090021 QUETIAPINE FUMARATE Inactive CYCLOBENZAPRINE HCL 10 MG TABS 1 three times a day as needed for back spasm CYCLOBENZAPRINE HCL 10 MG TABS 188270 CYCLOBENZAPRINE HCL Inactive HYDROXYZINE HCL 10 MG TABS 1 to 2 three times a day as needed for itching HYDROXYZINE HCL 10 MG TABS 495275 HYDROXYZINE HCL Inactive TESSALON PERLES 100 MG CAP 1 tablet by mouth 3 times daily 01/20 TESSALON PERLES 100 MG CAP 543492 BENZONATATE Inactive CYCLOBENZAPRINE HCL 10 MG TABS 1/2 to 1 tablet by mouth three times daily as needed for muscle spasm/pain CYCLOBENZAPRINE HCL 10 MG TABS 666132 CYCLOBENZAPRINE HCL Inactive CYCLOBENZAPRINE HCL 10 MG TABS 1/2 to 1 tablet every 4 hours CYCLOBENZAPRINE HCL 10 MG TABS 158838 CYCLOBENZAPRINE HCL Inactive LATUDA 20 MG TABS 1 tab at at night with meal LATUDA 20 MG TABS LURASIDONE HCL Inactive IBUPROFEN 600 MG TAB 1 tablet three times a day as needed IBUPROFEN 600 MG TAB 822794 IBUPROFEN Inactive PROAIR HFA 108 (90 BASE) MCG/ACT AERS 2 puffs four times a day as needed 2011 PROAIR HFA 108 (90 BASE) MCG/ACT AERS ALBUTEROL SULFATE Inactive FETZIMA 40 MG ORAL [id number] FETZIMA 40 MG ORAL [id number] LEVOMILNACIPRAN HCL Inactive SEROQUEL 200 MG ORAL TABS Take 1 tablet at hs SEROQUEL 200 MG ORAL TABS 589717 QUETIAPINE FUMARATE Inactive AMOXICILLIN 500 MG TABS 2 tabs twice a day for 10 days AMOXICILLIN 500 MG TABS 354211 AMOXICILLIN Inactive PROMETHAZINE HCL 25 MG TABS 1 four times a day as needed for vomiting PROMETHAZINE HCL 25 MG TABS 469857 PROMETHAZINE HCL Inactive BACTRIM DS 800-160 MG TAB 1 tab by mouth twice daily BACTRIM DS 800-160 MG TAB 955697 TRIMETHOPRIM-SULFAMETHOXAZOLE Inactive AMOXICILLIN 400 MG/5ML SUSR 5ml po TID x 10 days AMOXICILLIN 400 MG/5ML SUSR 884485 AMOXICILLIN Inactive FLAGYL 500 MG TABS four tabs PO one time FLAGYL 500 MG TABS 621213 METRONIDAZOLE Inactive AMOXICILLIN 500 MG TABS Take one tab by mouth 3 times daily, morning, afternoon and evening for 7 days. AMOXICILLIN 500 MG TABS 661148 AMOXICILLIN Inactive AMOXICILLIN 500 MG CAPS 2 po BID x 10 days AMOXICILLIN 500 MG CAPS 217868 AMOXICILLIN Inactive AMOXICILLIN 500 MG CAPS 2 po BID x 10 days AMOXICILLIN 500 MG CAPS 388534 AMOXICILLIN Inactive PENICILLIN V POTASSIUM 500 MG TABS 1 TID PENICILLIN V POTASSIUM 500 MG TABS 365205 PENICILLIN V POTASSIUM Inactive BACTRIM DS 800-160 MG TABS 1 po BID x 10 days BACTRIM DS 800-160 MG TABS 302562 SULFAMETHOXAZOLE-TRIMETHOPRIM Inactive ZITHROMAX 250 MG TAB 2 po today, then 1 po q days 2-5 ZITHROMAX 250 MG TAB 9687377 AZITHROMYCIN Inactive TAMIFLU 75 MG CAPS 1 bid x 5 days TAMIFLU 75 MG CAPS 311312 OSELTAMIVIR PHOSPHATE Inactive AZITHROMYCIN 250 MG TABS 2 po qd x 1 day, then 1 po qd x 4 days AZITHROMYCIN 250 MG TABS 4880435 AZITHROMYCIN Inactive MEDROL (NISA) 4 MG TABS 6 tabs on day 1, 5 tabs on day 2, 4 tabs on day 3, 3 tabs on day 4, 2 tabs on day 5, 1 tab on day 6 MEDROL ( NISA) 4 MG TABS 670531 METHYLPREDNISOLONE Inactive SUPRAX 400 MG CAPS Take one tablet twice daily for 7 days SUPRAX 400 MG CAPS CEFIXIME Inactive Immunizations Vaccine Administration Date Value Standard Description Seasonal influenza vaccine, injectable, containing preservative, for > 3 years old (Afluria, FluLaval, Fluzone, Fluvirin, Fluarix, Agriflu(>=18 yo)) Fluzone (>3 yrs.) [SOG963] Influenza, seasonal, injectable pneumococcal immunization administered Pneumovax 23 [CVX33] pneumococcal polysaccharide vaccine, 23 valent Seasonal influenza vaccine, injectable, containing preservative, for > 3 years old (Afluria, FluLaval, Fluzone, Fluvirin, Fluarix, Agriflu(>=18 yo)) Fluzone (>3 yrs.) [CMC494] Influenza, seasonal, injectable Seasonal influenza vaccine, injectable, containing preservative, for > 3 years old (Afluria, FluLaval, Fluzone, Fluvirin, Fluarix, Agriflu(>=18 yo)) Fluzone (>3 yrs.) [FMX900] Influenza, seasonal, injectable hepatitis B vaccine #1 [...] Range Description blood pressure, diastolic - 8462-4 73 mm[Hg] BP jorge blood pressure, systolic - 8480-6 138 mm[Hg] BP sys pulse rate E&M - 8867-4 106 /min Heart rate temperature E&M 98.3 [degF] Body temperature weight E&M - 3141-9 250 [lb_av] Weight Measured Encounters Code Encounter Date Provider Facility CPT-54202 Level 3 Est. Patient 11:04:11 [employer]ERK Jani Marrero MD [facility] CPT-89610 Level 3 Est. Patient 12:02:27 [employer]OR[employer] CLERK Andrei Nichols MD [facility] CPT-42866 Level 3 Est. Patient 12:47:17 [employer]OR[employer] CLERK Andrei Nichols MD [facility] CPT-47342 Level 3 Est. Patient 14:51:20 [employer] STORAGE CLERK Shikha Randolph [facility] CPT-90716 Level 3 Est. Patient 10:42:38 CDT Shikha Randolph [facility] CPT-90980 Level 3 Est. Patient 18:20:39 CDT Prisca Lockwood MD PhD [facility]-94183 Level 3 Est. Patient 16:42:47 [employer]ERK Rosalie Boyd [facility] CPT-96174 Level 3 Est. Patient 14:34:36 [employer] CLERK Rosalie Boyd [facility] CPT-25492 Level 4 Est. Patient 10:23:07 [employer]OR[employer] CLERK Andrei Nichols MD [facility]-78863 Level 3 Est. Patient 16:47:31 [employer]OR[employer] CLERK Andrei Nichols MD [facility]-81235 Level 3 Est. Patient 11:59:14 CDT Rosalie Boyd [facility]-51224 Level 3 Est. Patient 15:30:34 CDT Giovany URBINA [facility]-57751 Level 3 Est. Patient 11:03:03 CDT Rosalie Boyd [facility]-73259 Level 3 Est. Patient 11:08:07 CDT Rosalie Boyd [facility]-97312 Level 3 Est. Patient 14:07:32 CDT Andrei Nichols MD [facility]-77236 Level 3 Est. Patient 17:08:28 CDT Andrei Nichols MD [facility]-88118 Level 3 Est. Patient 13:10:13 CDT Jani Marrero MD [facility]-41999 Level 3 Est. Patient 11:27:12 CDT Jani Marrero MD [facility]-75324 Level 3 Est. Patient 13:44:42 CDT Andrei Nichols MD [facility]-63482 Level 3 Est. Patient 12:34:57 [employer] CLERK Andrei Nichols MD [facility]-73667 Level 3 Est. Patient 15:30:06 CDT Jani Marrero MD [facility] CPT-51250 Level 3 Est. Patient 21:59:00 CDT Corky Mckeon DO [facility] CPT-74306 Level 3 Est. Patient 17:12:49 CDT Andrei Nichols MD [facility] CPT-86723 Level 4 Est. Patient 12:27:45 [employer]ERK Andrei Nichols MD [facility] CPT-47085 Level 3 Est. Patient 12:15:34 [employer] CLERK Andrei Nichols MD [facility] Procedures Code Procedure Name Date Entry Date Standard Description CPT-OV Office Visit 11:36:40 CDT CPT-36137 Administration 2+ single or combination vaccines inc oral 07:50:30 CDT CPT-23053 Administration single or combination vaccine inc oral 07 :50:30 CDT CPT-24433 Pneumovax 07:50:30 CDT CPT-34579 Influenza split virus > age 3 07:50:30 CDT CPT-OV Office Visit 11:49:10 [employer] STORAGE CLERK CPT-17732 Nexplanon Removal with Reinsertion 14:02:06 [employer]A STORAGE CLERK CPT-J7307 Nexplanon (Implant) 14:02:06 [employer]A STORAGE CLERK CPT-OV Office Visit 14:02:06 CAMERA STORAGE CLERK CPT-OV Office Visit 11:58:04 CAMERA STORAGE CLERK CPT-70811 Administration single or combination vaccine inc oral 11 :31:07 CDT CPT-38443 Influenza split virus > age 3 11:31:07 CDT CPT-53054 Administration single or combination vaccine inc oral 10 :34:13 CDT CPT-47782 Influenza split virus > age 3 10:34:13 CDT
--- OUTSIDE RECORDS SUMMARY | 2017-01-02 18:01 | XMS REPORT | Clinical Summary ---
Author Author Admin, E Organization [facility] Address Unknown Phone Unavailable Allergies, Adverse Reactions, [...] Sinusitis, frontal, acute 461.1 Resolved Shikha Yokum FINANCIAL REP Acute frontal sinusitis Pharyngitis 462 Resolved Shikha Yokum FINANCIAL REP Acute pharyngitis Scabies 133.0 Resolved Shikha Yokum FINANCIAL REP Scabies Folliculitis 704.8 Resolved Shikha Yokum FINANCIAL REP Other specified diseases of hair and hair follicles Cough 786.2 Resolved Andrei Nichols MD Cough Dysuria 788.1 Active Shikha Randolph APRN Dysuria Vomiting 787.03 Active Andrei Nichols MD Vomiting alone Pharyngitis 462 Active Andrei Nichols MD Acute pharyngitis SINUSITIS, ACUTE 461.9 Inactive Jani Marrero MD Acute sinusitis, unspecified Knee pain, left 719.46 Active Nichelle Cook LPN Pain in joint involving lower leg PEDICULUS CAPITIS ICD-132.0 Inactive Andrei Nichols MD [...] Nichols MD 2012 DIARRHEA ICD-787.91 Inactive Ary URBINA SCABIES ICD-133.0 Inactive Ary Kirk PA ECZEMA ICD-692.9 Inactive Shikha Ageesiva FINANCIAL REP OTITIS MEDIA ICD-382.9 Inactive Ary Kirk PA 09/16 PHARYNGITIS ICD-462 Inactive Andrei Nichols MD UNSPECIFIED DISORDER TEETH&SUPPORTING STRUCTURES ICD-525.9 12/29 Inactive Shikha Randolph FINANCIAL REP PHARYNGITIS-ACUTE ICD-462 Inactive Rosalie Boyd FINANCIAL REP DIARRHEA ICD-787.91 Inactive Andrei Nichols MD SHOULDER PAIN ICD-719.41 Inactive Shikha Randolph FINANCIAL REP NAUSEA AND VOMITING ICD-787.01 Inactive Andrei Nichols [...] PhD Dental caries ICD-521.00 Inactive Shikha Yokum FINANCIAL REP Tooth pain ICD-525.9 Inactive Prisca Lockwood MD PhD Head lice ICD-132.0 Inactive Prisca Lockwood MD PhD Upper respiratory infection ICD-465.9 Inactive Prisca Lockwood MD PhD Sinusitis, frontal, acute ICD-461.1 Inactive Shikha Yokum FINANCIAL REP Pharyngitis ICD-462 Inactive Shikha Yokum FINANCIAL REP 2013 Scabies ICD-133.0 Inactive Shikha Yokum FINANCIAL REP 12/29 Folliculitis ICD-704.8 Inactive Shikha Yokum FINANCIAL REP Cough ICD-786.2 Inactive Andrei Nichols MD SINUSITIS, ACUTE ICD-461.9 Inactive Jani Marrero MD Medication List Medication Instructions Start Date Stop Date Generic Name NDC Status Provider Patient Instruction MELOXICAM 15 MG TABS 1 daily for knee pain MELOXICAM [id number] Active Renetta Ryan APRN Active CYCLOBENZAPRINE HCL 10 MG TABS 1 three times a day as needed for muscle spasm CYCLOBENZAPRINE HCL 43836784019 Active Renetta Ryan APRN Active BUSPIRONE HCL 10 MG ORAL TABS 2 TABS PO BID BUSPIRONE HCL 29537275339 Active Renetta Ryan APRN Active AMITRIPTYLINE HCL 75 MG ORAL TABS 1 TAB Q HS AMITRIPTYLINE HCL 05344754072 Active Renetta Ryan APRN Active PROAIR HFA 108 (90 BASE) MCG/ACT AERS 2 puffs four times a day as needed 2015 ALBUTEROL SULFATE 43872494154 No Longer Active Renetta Ryan APRN Active KLONOPIN 1 MG TABS 1 tablet TID CLONAZEPAM 13209837255 No Longer Active Renetta Ryan APRN Active ZITHROMAX 250 MG TAB 2 po today, then 1 po q days 2-5 AZITHROMYCIN 17792768695 No Longer Active Jani Marrero MD Active IBUPROFEN 800 MG TABS 1 tab PO TID IBUPROFEN 62062669529 Active Jani Marrero MD Active WELLBUTRIN SR 100 MG ORAL [id number] 1 TAB PO DAILY BUPROPION HCL 95060661128 Active Jani Marrero MD Active AMITRIPTYLINE HCL 50 MG TAB 1 po q hs for sleep AMITRIPTYLINE HCL 60652732941 No Longer Active Jani Marrero MD Active PROMETHAZINE HCL 25 MG TABS 1 four times a day as needed for vomiting PROMETHAZINE HCL 12970182759 No Longer Active Jani Marrero MD Active AMOXICILLIN 500 MG TABS 2 tabs twice a day for 10 days AMOXICILLIN 77922440470 No Longer Active Jani Marrero MD Active SEROQUEL 200 MG ORAL TABS Take 1 tablet at hs QUETIAPINE FUMARATE 97273281417 No Longer Active Jani Marrero MD Active FETZIMA 40 MG ORAL [id number] LEVOMILNACIPRAN HCL 53030468131 No Longer Active Jani Marrero MD Active PROAIR HFA 108 (90 BASE) MCG/ACT AERS 2 puffs four times a day as needed 2011 ALBUTEROL SULFATE 00613355051 No Longer Active Alondra Denton MD Active IBUPROFEN 600 MG TAB 1 tablet three times a day as needed IBUPROFEN 96972071568 No Longer Active Alondra Denton MD Active LATUDA 20 MG TABS 1 tab at at night with meal LURASIDONE HCL 49286065525 No Longer Active Alondra Denton MD Active CYCLOBENZAPRINE HCL 10 MG TABS 1/2 to 1 tablet every 4 hours CYCLOBENZAPRINE HCL 98835357593 No Longer Active Alondra Denton MD Active CYCLOBENZAPRINE HCL 10 MG TABS 1/2 to 1 tablet by mouth three times daily as needed for muscle spasm/pain CYCLOBENZAPRINE HCL 00269788200 No Longer Active Alondra Denton MD Active SUPRAX 400 MG CAPS Take one tablet twice daily for 7 days CEFIXIME 09696211705 No Longer Active Shikha Yokum FINANCIAL REP Active TESSALON PERLES 100 MG CAP 1 tablet by mouth 3 times daily 01/20 BENZONATATE 52128316268 No Longer Active Shikha Yokum FINANCIAL REP Active HYDROXYZINE HCL 10 MG TABS 1 to 2 three times a day as needed for itching HYDROXYZINE HCL 15903811146 No Longer Active Shikha Yokum FINANCIAL REP Active CYCLOBENZAPRINE HCL 10 MG TABS 1 three times a day as needed for back spasm CYCLOBENZAPRINE HCL 96653297099 No Longer Active Shikha Yokum FINANCIAL REP Active SEROQUEL 200 MG TABS 1 tablet at bedtime. QUETIAPINE FUMARATE 03442210900 No Longer Active Shikha Yokum FINANCIAL REP Active BACTRIM DS 800-160 MG TAB 1 tab by mouth twice daily TRIMETHOPRIM-SULFAMETHOXAZOLE 59251001389 No Longer Active Shikha Yokum FINANCIAL REP Active STROMECTOL 3 MG TABS 5 tablets by mouth one time on an empty stomach, may repeat in 2 weeks if needed IVERMECTIN 75004426693 No Longer Active Shikha Yokum FINANCIAL REP Active PERMETHRIN 5 % CREA apply neck to toes tonight and then rinse off in morning. repeat at 7 days PERMETHRIN 31270052086 No Longer Active Andrei Nichols MD Active MEDROL (NISA) 4 MG TABS 6 tabs on day 1, 5 tabs on day 2, 4 tabs on day 3, 3 tabs on day 4, 2 tabs on day 5, 1 tab on day 6 METHYLPREDNISOLONE 89539679636 No Longer Active Prisca Lockwood MD PhD Active AZITHROMYCIN 250 MG TABS 2 po qd x 1 day, then 1 po qd x 4 days AZITHROMYCIN 72553111547 No Longer Active Prisca Lockwood MD PhD Active CELEXA 20 MG TABS Take 1.5 tablets daily CITALOPRAM HYDROBROMIDE 08380040953 No Longer Active Prisca Lockwood MD PhD Active LOMOTIL 2.5-0.025 MG TAB 1 to 2 four times a day as needed for diarrhea 01/21 DIPHENOXYLATE-ATROPINE 62000701372 No Longer Active Prisca Lockwood MD PhD Active TAMIFLU 75 MG CAPS 1 bid x 5 days OSELTAMIVIR PHOSPHATE 01666809563 No Longer Active Rosalie Boyd APRN Active ZITHROMAX 250 MG TAB 2 po today, then 1 po q days 2-5 AZITHROMYCIN 47404605581 No Longer Active Rosalie Boyd APRN Active STROMECTOL 3 MG TABS 6 pills by mouth x 1; repeat in 10 days 2012 IVERMECTIN 57440204324 No Longer Active Rosalie Boyd APRN Active TYLENOL WITH CODEINE #3 300-30 MG TABS ONE TABLET FOUR TIMES A DAY NEEDED for pain or cough ACETAMINOPHEN-CODEINE 42210401331 No Longer Active Rosalie Boyd APRN Active GUAIFENESIN-CODEINE 100-10 MG/5ML SYRP 1 tsp PO q6h PRN cough GUAIFENESIN-CODEINE 42534667173 No Longer Active Rosalie Boyd APRN Active KEFLEX 500 MG CAP 1 po qid CEPHALEXIN 58586183693 No Longer Active Rosalie Boyd APRN Active GUAIFENESIN-CODEINE 100-10 MG/5ML SYRP 1 tsp PO q6h PRN cough GUAIFENESIN-CODEINE 70200490607 No Longer Active Rosalie Boyd APRN Active PROMETHAZINE HCL 25 MG TABS 1 four times a day as needed for nausea/vomiting PROMETHAZINE HCL 45661462180 No Longer Active Rosalie Boyd APRN Active LAMISIL AT 1 % CREA apply bid to rash TERBINAFINE HCL 64152678793 No Longer Active Andrei Nichols MD Active AMOXICILLIN 400 MG/5ML SUSR 6ml three times a day for 10 days AMOXICILLIN 84943504277 No Longer Active Andrei Nichols MD Active PROMETHAZINE HCL 25 MG TABS take 1 po Q 8 hours prn nausea and vomiting 12/11 PROMETHAZINE HCL 14767629151 No Longer Active Andrei Nichols MD Active BACTROBAN 2 % OINTMENT Apply bid to affected area MUPIROCIN 57465115952 No Longer Active Andrei Nichosl MD Active GUAIFENESIN-CODEINE 100-10 MG/5ML SYRP 1 tsp PO q6h PRN cough GUAIFENESIN-CODEINE 09203535004 No Longer Active Andrei Nichols MD Active BACTRIM DS 800-160 MG TABS 1 po BID x 10 days SULFAMETHOXAZOLE-TRIMETHOPRIM 52089803049 No Longer Active Rosalie Boyd APRN Active GUAIFENESIN-CODEINE 100-10 MG/5ML SYRP 1-2 tsp PO q6h PRN cough GUAIFENESIN-CODEINE 15649002119 No Longer Active Giovany URBINA Active PREDNISONE 20 MG TABS 1 tablet by mouth twice daily for 2 days, then 1 daily for 2 days PREDNISONE 60717887860 No Longer Active Giovany URBINA Active HYDROCODONE-ACETAMINOPHEN 5-325 MG TABS 1/2 to 1 po q 4 hours prn pain 11/13 HYDROCODONE-ACETAMINOPHEN 47379258837 No Longer Active Rosalie Boyd FINANCIAL REP Active PENICILLIN V POTASSIUM 500 MG TABS 1 TID PENICILLIN V POTASSIUM 59649332709 No Longer Active Andrei Nichols MD Active SEROQUEL 50 MG TABS 1 tablet at HS QUETIAPINE FUMARATE 01665748460 No Longer Active Andrei Nichols MD Active SEROQUEL 100 MG TABS 1 tablet at HS QUETIAPINE FUMARATE 03999899368 No Longer Active Andrei Nichols MD Active TRIAMCINOLONE ACETONIDE 0.1 % CREA apply three times daily prn rash TRIAMCINOLONE ACETONIDE 57940878436 No Longer Active Andrei Nichols MD Active AMOXICILLIN 500 MG TABS take one tab po tid x 10 days AMOXICILLIN 52110439425 No Longer Active Andrei Nichols MD Active CELEXA 20 MG TABS 1and 1/2 tablets by mouth daily CITALOPRAM HYDROBROMIDE 61823746182 No Longer Active Ary Pool PA Active FLEXERIL 10 MG TAB 1/2 to one tablet every 12 hours as needed CYCLOBENZAPRINE HCL 35739345827 No Longer Active Ary Pool PA Active CLONAZEPAM 1 MG TABS take at bedtime CLONAZEPAM 20574234482 No Longer Active Ary Pool PA Active PERMETHRIN 5 % CREA applyhead to toes tonight and then rinse off in 18 hours. repeat at 7 days if needed. PERMETHRIN 96027619690 No Longer Active Ary Pool PA Active AMOXICILLIN 500 MG CAPS 2 po BID x 10 days AMOXICILLIN 81360609891 No Longer Active Andrei Nichols MD Active TYLENOL WITH CODEINE #3 300-30 MG TABS 1 to 2 four times a day as needed for pain ACETAMINOPHEN-CODEINE 56047783660 No Longer Active Reta Hampton Active PREDNISONE 20 MG TAB 2 tabs daily for 5 days, then 1 daily for 5 days PREDNISONE 44006150600 No Longer Active Reta Hampton Active LOMOTIL 2.5-0.025 MG TAB 1 to 2 four times a day as needed for diarrhea 05/28 DIPHENOXYLATE-ATROPINE 06813648699 No Longer Active Reta Hampton Active ALPRAZOLAM 1 MG TABS 1 tab tid ALPRAZOLAM 90682686078 No Longer Active Reta Hampton Active AMOXICILLIN 500 MG CAPS 2 po BID x 10 days AMOXICILLIN 35997159322 No Longer Active Andrei Nichols MD Active AMOXICILLIN 500 MG TABS Take one tab by mouth 3 times daily, morning, afternoon and evening for 7 days. AMOXICILLIN 11110222558 No Longer Active Virginia Alejandra RN Active VICODIN 5-300 MG TABS one tab PO Q 6 hours PRN pain HYDROCODONE-ACETAMINOPHEN 85912098410 No Longer Active Virginia Alejandra RN Active FLAGYL 500 MG TABS four tabs PO one time METRONIDAZOLE 08809850453 No Longer Active Alondra Denton MD Active MELOXICAM 15 MG TABS 1 po q day for pain with food MELOXICAM 28314771941 No Longer Active Alondra Denton MD Active AMOXICILLIN 400 MG/5ML SUSR 5ml po TID x 10 days AMOXICILLIN 42408278921 No Longer Active Jani Marrero MD Active NIX CREME RINSE 1 % LIQD apply as directed tonight, repeat at 7 days PERMETHRIN 33316950234 No Longer Active Corky Mckeon DO Active QVAR 40 MCG/ACT AERS one puff three times a day as needed BECLOMETHASONE DIPROPIONATE 93278843892 No Longer Active Andrei Nichols MD Active METHOCARBAMOL 500 MG TABS 1 to 2 qid prn back spasm METHOCARBAMOL 31235068039 No Longer Active Andrei Nichols MD Active VISTARIL 25 MG CAPS 1-2 tablets three times a day as needed HYDROXYZINE PAMOATE 34870242538 No Longer Active Andrei Nichols MD Active SEROQUEL 100 MG TABS 1/2 TABLET at hs QUETIAPINE FUMARATE 08173088583 No Longer Active Aicha Rizzo RN Active BACTRIM DS 800-160 MG TAB 1 tab by mouth twice daily TRIMETHOPRIM-SULFAMETHOXAZOLE 27410955950 No Longer Active Prisca Lockwood MD PhD Active CYCLOBENZAPRINE HCL 10 MG TABS TAKE 1/2 - 1 TAB EVERY 12 HOURS NEEDED 2010 CYCLOBENZAPRINE HCL 60283764585 No Longer Active Andrei Nichols MD Active ALPRAZOLAM 1 MG TABS 1 tab tid ALPRAZOLAM 1 MG TABS 313517 ALPRAZOLAM Inactive AMITRIPTYLINE HCL 50 MG TAB 1 po q hs for sleep AMITRIPTYLINE HCL 50 MG TAB 335008 AMITRIPTYLINE HCL Inactive AMOXICILLIN 500 MG CAPS 2 po BID x 10 days AMOXICILLIN 500 MG CAPS 854269 AMOXICILLIN Inactive AMOXICILLIN 500 MG CAPS 2 po BID x 10 days AMOXICILLIN 500 MG CAPS 947013 AMOXICILLIN Inactive BACTRIM DS 800-160 MG TAB 1 tab by mouth twice daily BACTRIM DS 800-160 MG TAB 19820514 TRIMETHOPRIM-SULFAMETHOXAZOLE Inactive BACTRIM DS 800-160 MG TABS 1 po BID x 10 days BACTRIM DS 800-160 MG TABS 19820514 SULFAMETHOXAZOLE-TRIMETHOPRIM Inactive BACTRIM DS 800-160 MG TAB 1 tab by mouth twice daily BACTRIM DS 800-160 MG TAB 19820514 TRIMETHOPRIM-SULFAMETHOXAZOLE Inactive BACTROBAN 2 % OINTMENT Apply bid to affected area BACTROBAN 2 % OINTMENT 209737 MUPIROCIN Inactive CYCLOBENZAPRINE HCL 10 MG TABS TAKE 1/2 - 1 TAB EVERY 12 HOURS NEEDED 2010 CYCLOBENZAPRINE HCL 10 MG TABS 740516 CYCLOBENZAPRINE HCL Inactive CYCLOBENZAPRINE HCL 10 MG TABS 1 three times a day as needed for back spasm CYCLOBENZAPRINE HCL 10 MG TABS 970522 CYCLOBENZAPRINE HCL Inactive CYCLOBENZAPRINE HCL 10 MG TABS 1/2 to 1 tablet by mouth three times daily as needed for muscle spasm/pain CYCLOBENZAPRINE HCL 10 MG TABS 326001 CYCLOBENZAPRINE HCL Inactive CYCLOBENZAPRINE HCL 10 MG TABS 1/2 to 1 tablet every 4 hours CYCLOBENZAPRINE HCL 10 MG TABS 517584 CYCLOBENZAPRINE HCL Inactive FLAGYL 500 MG TABS four tabs PO one time FLAGYL 500 MG TABS 734030 METRONIDAZOLE Inactive FLEXERIL 10 MG TAB 1/2 to one tablet every 12 hours as needed FLEXERIL 10 MG TAB CYCLOBENZAPRINE HCL Inactive HYDROXYZINE HCL 10 MG TABS 1 to 2 three times a day as needed for itching HYDROXYZINE HCL 10 MG TABS 735096 HYDROXYZINE HCL Inactive IBUPROFEN 600 MG TAB 1 tablet three times a day as needed IBUPROFEN 600 MG TAB 092655 IBUPROFEN Inactive KEFLEX 500 MG CAP 1 po qid KEFLEX 500 MG CAP 162543 CEPHALEXIN Inactive KLONOPIN 1 MG TABS 1 tablet TID KLONOPIN 1 MG TABS 253106 CLONAZEPAM Inactive LOMOTIL 2.5-0.025 MG TAB 1 to 2 four times a day as needed for diarrhea 01/21 LOMOTIL 2.5-0.025 MG TAB 1498010 DIPHENOXYLATE-ATROPINE Inactive LOMOTIL 2.5-0.025 MG TAB 1 to 2 four times a day as needed for diarrhea 05/28 LOMOTIL 2.5-0.025 MG TAB 0980269 DIPHENOXYLATE-ATROPINE Inactive METHOCARBAMOL 500 MG TABS 1 to 2 qid prn back spasm METHOCARBAMOL 500 MG TABS 498742 METHOCARBAMOL Inactive NIX CREME RINSE 1 % LIQD apply as directed tonight, repeat at 7 days NIX CREME RINSE 1 % LIQD PERMETHRIN Inactive PENICILLIN V POTASSIUM 500 MG TABS 1 TID PENICILLIN V POTASSIUM 500 MG TABS 574080 PENICILLIN V POTASSIUM Inactive PREDNISONE 20 MG TAB 2 tabs daily for 5 days, then 1 daily for 5 days PREDNISONE 20 MG TAB 688150 PREDNISONE Inactive PREDNISONE 20 MG TABS 1 tablet by mouth twice daily for 2 days, then 1 daily for 2 days PREDNISONE 20 MG TABS 410674 PREDNISONE Inactive PROMETHAZINE HCL 25 MG TABS take 1 po Q 8 hours prn nausea and vomiting 12/11 PROMETHAZINE HCL 25 MG TABS 661869 PROMETHAZINE HCL Inactive PROMETHAZINE HCL 25 MG TABS 1 four times a day as needed for nausea/vomiting PROMETHAZINE HCL 25 MG TABS 705446 PROMETHAZINE HCL Inactive PROMETHAZINE HCL 25 MG TABS 1 four times a day as needed for vomiting PROMETHAZINE HCL 25 MG TABS 251415 PROMETHAZINE HCL Inactive TRIAMCINOLONE ACETONIDE 0.1 % CREA apply three times daily prn rash TRIAMCINOLONE ACETONIDE 0.1 % CREA 7438953 TRIAMCINOLONE ACETONIDE Inactive TYLENOL WITH CODEINE #3 300-30 MG TABS ONE TABLET FOUR TIMES A DAY NEEDED for pain or cough TYLENOL WITH CODEINE #3 300-30 MG TABS ACETAMINOPHEN-CODEINE Inactive TYLENOL WITH CODEINE #3 300-30 MG TABS 1 to 2 four times a day as needed for pain TYLENOL WITH CODEINE #3 300-30 MG TABS ACETAMINOPHEN-CODEINE Inactive VISTARIL 25 MG CAPS 1-2 tablets three times a day as needed VISTARIL 25 MG CAPS 842693 HYDROXYZINE PAMOATE Inactive CLONAZEPAM 1 MG TABS take at bedtime CLONAZEPAM 1 MG TABS 502838 CLONAZEPAM Inactive PERMETHRIN 5 % CREA applyhead to toes tonight and then rinse off in 18 hours. repeat at 7 days if needed. PERMETHRIN 5 % CREA 530987 PERMETHRIN Inactive PERMETHRIN 5 % CREA apply neck to toes tonight and then rinse off in morning. repeat at 7 days PERMETHRIN 5 % CREA 031415 PERMETHRIN Inactive TESSALON PERLES 100 MG CAP 1 tablet by mouth 3 times daily 01/20 TESSALON PERLES 100 MG CAP 685114 BENZONATATE Inactive AMOXICILLIN 500 MG TABS 2 tabs twice a day for 10 days AMOXICILLIN 500 MG TABS 514486 AMOXICILLIN Inactive AMOXICILLIN 500 MG TABS Take one tab by mouth 3 times daily, morning, afternoon and evening for 7 days. AMOXICILLIN 500 MG TABS 301761 AMOXICILLIN Inactive AMOXICILLIN 500 MG TABS take one tab po tid x 10 days AMOXICILLIN 500 MG TABS 093923 AMOXICILLIN Inactive MELOXICAM 15 MG TABS 1 po q day for pain with food MELOXICAM 15 MG TABS 205161 MELOXICAM Inactive ZITHROMAX 250 MG TAB 2 po today, then 1 po q days 2-5 ZITHROMAX 250 MG TAB 5514954 AZITHROMYCIN Inactive ZITHROMAX 250 MG TAB 2 po today, then 1 po q days 2-5 ZITHROMAX 250 MG TAB 4780844 AZITHROMYCIN Inactive AZITHROMYCIN 250 MG TABS 2 po qd x 1 day, then 1 po qd x 4 days AZITHROMYCIN 250 MG TABS 5311522 AZITHROMYCIN Inactive SEROQUEL 100 MG TABS 1/2 TABLET at hs SEROQUEL 100 MG TABS 208238 QUETIAPINE FUMARATE Inactive SEROQUEL 100 MG TABS 1 tablet at HS SEROQUEL 100 MG TABS 324700 QUETIAPINE FUMARATE Inactive SEROQUEL 200 MG ORAL TABS Take 1 tablet at hs SEROQUEL 200 MG ORAL TABS 482374 QUETIAPINE FUMARATE Inactive SEROQUEL 200 MG TABS 1 tablet at bedtime. SEROQUEL 200 MG TABS 085619 QUETIAPINE FUMARATE Inactive CELEXA 20 MG TABS Take 1.5 tablets daily CELEXA 20 MG TABS 20020909 CITALOPRAM HYDROBROMIDE Inactive CELEXA 20 MG TABS 1and 1/2 tablets by mouth daily CELEXA 20 MG TABS 20020909 CITALOPRAM HYDROBROMIDE Inactive LAMISIL AT 1 % CREA apply bid to rash LAMISIL AT 1 % CREA 921809 TERBINAFINE HCL Inactive AMOXICILLIN 400 MG/5ML SUSR 5ml po TID x 10 days AMOXICILLIN 400 MG/5ML SUSR 835133 AMOXICILLIN Inactive AMOXICILLIN 400 MG/5ML SUSR 6ml three times a day for 10 days AMOXICILLIN 400 MG/5ML SUSR 598102 AMOXICILLIN Inactive STROMECTOL 3 MG TABS 6 pills by mouth x 1; repeat in 10 days 2012 STROMECTOL 3 MG TABS 332502 IVERMECTIN Inactive STROMECTOL 3 MG TABS 5 tablets by mouth one time on an empty stomach, may repeat in 2 weeks if needed STROMECTOL 3 MG TABS 656338 IVERMECTIN Inactive TAMIFLU 75 MG CAPS 1 bid x 5 days TAMIFLU 75 MG CAPS 145034 OSELTAMIVIR PHOSPHATE Inactive QVAR 40 MCG/ACT AERS one puff three times a day as needed QVAR 40 MCG/ACT AERS BECLOMETHASONE DIPROPIONATE Inactive HYDROCODONE-ACETAMINOPHEN 5-325 MG TABS 1/2 to 1 po q 4 hours prn pain 11/13 HYDROCODONE-ACETAMINOPHEN 5-325 MG TABS 826345 HYDROCODONE- ACETAMINOPHEN Inactive SEROQUEL 50 MG TABS 1 tablet at HS SEROQUEL 50 MG TABS 042140 QUETIAPINE FUMARATE Inactive PROAIR HFA 108 (90 BASE) MCG/ACT AERS 2 puffs four times a day as needed 2011 PROAIR HFA 108 (90 BASE) MCG/ACT AERS ALBUTEROL SULFATE Inactive PROAIR HFA 108 (90 BASE) MCG/ACT AERS 2 puffs four times a day as needed 2015 PROAIR HFA 108 (90 BASE) MCG/ACT AERS ALBUTEROL SULFATE Inactive GUAIFENESIN-CODEINE 100-10 MG/5ML SYRP 1-2 tsp PO q6h PRN cough GUAIFENESIN-CODEINE 100-10 MG/5ML SYRP 853404 GUAIFENESIN-CODEINE Inactive GUAIFENESIN-CODEINE 100-10 MG/5ML SYRP 1 tsp PO q6h PRN cough GUAIFENESIN-CODEINE 100-10 MG/5ML SYRP 700454 GUAIFENESIN-CODEINE Inactive GUAIFENESIN-CODEINE 100-10 MG/5ML SYRP 1 tsp PO q6h PRN cough GUAIFENESIN-CODEINE 100-10 MG/5ML SYRP 873703 GUAIFENESIN-CODEINE Inactive GUAIFENESIN-CODEINE 100-10 MG/5ML SYRP 1 tsp PO q6h PRN cough GUAIFENESIN-CODEINE 100-10 MG/5ML SYRP 755606 GUAIFENESIN-CODEINE Inactive LATUDA 20 MG TABS 1 tab at at night with meal LATUDA 20 MG TABS LURASIDONE HCL Inactive SUPRAX 400 MG CAPS Take one tablet twice daily for 7 days SUPRAX 400 MG CAPS CEFIXIME Inactive FETZIMA 40 MG ORAL [id number] FETZIMA 40 MG ORAL [id number] LEVOMILNACIPRAN HCL Inactive MEDROL (NISA) 4 MG TABS 6 tabs on day 1, 5 tabs on day 2, 4 tabs on day 3, 3 tabs on day 4, 2 tabs on day 5, 1 tab on day 6 MEDROL ( NISA) 4 MG TABS 983407 METHYLPREDNISOLONE Inactive Immunizations Vaccine Administration Date Value Standard Description Seasonal influenza vaccine, injectable, containing preservative, for > 3 years old (Afluria, FluLaval, Fluzone, Fluvirin, Fluarix, Agriflu(>=18 yo)) Fluzone (>3 yrs.) [[id number]] Influenza, seasonal, injectable pneumococcal immunization administered Pneumovax 23 [CVX33] pneumococcal polysaccharide vaccine, 23 valent Seasonal influenza vaccine, injectable, containing preservative, for > 3 years old (Afluria, FluLaval, Fluzone, Fluvirin, Fluarix, Agriflu(>=18 yo)) Fluzone (>3 yrs.) [[id number]] Influenza, seasonal, injectable Seasonal influenza vaccine, injectable, containing preservative, for > 3 years old (Afluria, FluLaval, Fluzone, Fluvirin, Fluarix, Agriflu(>=18 yo)) Fluzone (>3 yrs.) [[id number]] Influenza, seasonal, injectable hepatitis B vaccine #1 [...] Range Description blood pressure, diastolic - 8462-4 90 mm[Hg] [...] Measured Encounters Code Encounter Date Provider Facility CPT-35675 Level 3 Est. Patient 16:47:47 CDT Renetta Ryan [facility] CPT-08392 Level 3 Est. Patient 11:04:11 CORPORATE TRAVEL CONSULTANT Jani Marrero MD [facility] CPT-74687 Level 3 Est. Patient 12:02:27 CORPORATE TRAVEL CONSULTANT Andrei Nichols MD [facility] CPT-95421 Level 3 Est. Patient 12:47:17 CORPORATE TRAVEL CONSULTANT Andrei Nichols MD [facility] CPT-24814 Level 3 Est. Patient 14:51:20 CORPORATE TRAVEL CONSULTANT Shikha Randolph [facility] CPT-44298 Level 3 Est. Patient 10:42:38 CDT Shikha Randolph [facility] CPT-93878 Level 3 Est. Patient 18:20:39 CDT Prisca Lockwood MD PhD [facility]-64312 Level 3 Est. Patient 16:42:47 CORPORATE TRAVEL CONSULTANT Rosalie Boyd [facility] CPT-12056 Level 3 Est. Patient 14:34:36 CORPORATE TRAVEL CONSULTANT Rosalie Boyd [facility] CPT-96760 Level 4 Est. Patient 10:23:07 CORPORATE TRAVEL CONSULTANT Andrei Nichols MD [facility]-19874 Level 3 Est. Patient 16:47:31 CORPORATE TRAVEL CONSULTANT Andrei Nichols MD [facility]-74793 Level 3 Est. Patient 11:59:14 CDT Rosalie Boyd [facility]-88839 Level 3 Est. Patient 15:30:34 CDT Giovany URBINA [facility] CPT-43561 Level 3 Est. Patient 11:03:03 CDT Rosalie Boyd [facility] CPT-60941 Level 3 Est. Patient 11:08:07 CDT Rosalie Boyd [facility] CPT-86243 Level 3 Est. Patient 14:07:32 CDT Andrei Nichols MD [facility]-37896 Level 3 Est. Patient 17:08:28 CDT Andrei Nichols MD [facility]-35084 Level 3 Est. Patient 13:10:13 CDT Jani Marrero MD [facility]-81846 Level 3 Est. Patient 11:27:12 CDT Jani Marrero MD [facility]-71068 Level 3 Est. Patient 13:44:42 CDT Andrei Nichols MD [facility]-87969 Level 3 Est. Patient 12:34:57 CORPORATE TRAVEL CONSULTANT Andrei Nichols MD [facility] CPT-18234 Level 3 Est. Patient 15:30:06 CDT Jani Marrero MD [facility] CPT-79052 Level 3 Est. Patient 21:59:00 CDT Corky Mckeon [facility] CPT-64407 Level 3 Est. Patient 17:12:49 CDT Andrei Nichols MD [facility] CPT-68616 Level 4 Est. Patient 12:27:45 CORPORATE TRAVEL CONSULTANT Andrei Nichols MD [facility] CPT-50418 Level 3 Est. 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
--- OUTSIDE RECORDS SUMMARY | 2017-01-02 18:01 | XMS REPORT ---
Author Author SUZIE VALLECILLO [facility] Address [address] [place] [address] Care Team Providers Care Drill Grinder Name Role Phone SUZIE VALLECILLO Unavailable PROBLEMS Type Condition ICD9-CM Code BOJ56-NP Code Onset Dates Condition Status SNOMED Code Problem Other chronic pain G89.29 Active 27457215 Problem Routine health maintenance Z00.00 Active 509806956 Problem Family history of migraine Z82.0 Active 046132926 Problem Allergic rhinitis, unspecified allergic rhinitis trigger, unspecified rhinitis seasonality J30.9 Active 82316006 Problem Asthma exacerbation J45.901 Active 249511291 Problem Family history of hypertension Z82.49 Active 520163818 Problem History of substance abuse Z87.898 Active 090459689 Problem Gastroesophageal reflux disease without esophagitis K21.9 Active 907864621 Problem Migraine without aura and with status migrainosus, not intractable G43.001 Active 767184979 Problem Morbid obesity due to excess calories E66.01 Active 230024989 Problem Family history of diabetes mellitus Z83.3 Active 225674750 Problem Lumbago with sciatica, left side M54.42 Active 923106526 Problem Obesity (BMI 30-39.9) E66.9 Active 796027352 Problem Lumbago with sciatica, right side M54.41 Active 079965025 ALLERGIES Substance Reaction Event Type Date Status N.K.D.A. Unknown Non Drug Allergy Mar, Unknown SOCIAL HISTORY No smoking Hx information available PLAN OF CARE Activity Details Follow Up PCP [facility] for continued problems, tests results pending Reason: VITAL SIGNS Height 64.5 in 2016-03-15 Weight 248.1 lbs 2016-03-15 Temperature 98.0 degrees Fahrenheit 2016-03-15 Heart Rate 84 bpm 2016-03-15 Respiratory Rate 20 2016-03-15 BMI 41.92 kg/m2 2016-03-15 Blood pressure systolic 118 mmHg 2016-03-15 Blood pressure diastolic 78 mmHg 2016-03-15 MEDICATIONS Medication Instructions Dosage Frequency Start Date End Date Duration Status BusPIRone HCl 10 MG Orally Twice a day 1 tablet 12h Active Fluticasone Propionate 50 MCG/ACT Nasally Once a day 1-2 spray in each nostril 24h Active Tylenol Extra Strength 500 MG Orally every 6 hrs 2 tablets as needed 6h Active Wellbutrin 100 MG 1 tablet 24h Active Melatonin 3 MG Orally Once a day 1 tablet at bedtime as needed with food 24h Active Ibuprofen 800 MG Orally Three times a day 1 tablet 8h Active ProAir HFA 108 (90 Base) MCG/ACT Inhalation every 4 hrs 2 puffs as needed 4h 30 days Active RESULTS Name Result Date Reference Range STREP A (IN HOUSE) 2016-03-15 STREP A Negative Control + Lot # [id number] Exp date 11/09/2016 INFLUENZA A & B (IN HOUSE) 2016-03-15 INFLUENZA A Negative INFLUENZA B Negative Control + Lot # [id number] Exp date 09/07/2017 CBC 2016-03-15 WBC 12.3 3.4-10.8 RBC 4.49 3.77-5.28 Hemoglobin 13.1 11.1-15.9 Hematocrit 39.2 34.0-46.6 MCV 87 79-97 MCH 29.2 26.6-33.0 MCHC 33.4 31.5-35.7 RDW 13.7 12.3-15.4 Platelets 413 150-379 Neutrophils 69 Lymphs 21 Monocytes 6 Eos 2 Basos 0 Immature Cells Neutrophils (Absolute) 8.6 1.4-7.0 Lymphs (Absolute) 2.5 0.7-3.1 Monocytes(Absolute) 0.8 0.1-0.9 Eos (Absolute) 0.2 0.0-0.4 Baso (Absolute) 0.0 0.0-0.2 Immature Granulocytes 2 Immature Grans (Abs) 0.2 0.0-0.1 NRBC Hematology Comments: CMP 2016-03-15 Glucose, Serum 80 65-99 BUN 13 6-20 Creatinine, Serum 0.70 0.57-1.00 eGFR If NonAfricn Am 121 >59 eGFR If Africn Am 139 >59 BUN/Creatinine Ratio 19 8-20 Sodium, Serum 139 134-144 Potassium, Serum 4.4 3.5-5.2 Chloride, Serum 98 96-106 Carbon Dioxide, Total 24 18-29 Calcium, Serum 9.2 8.7-10.2 Protein, Total, Serum 7.6 6.0-8.5 Albumin, Serum 4.7 3.5-5.5 Globulin, Total 2.9 1.5-4.5 A/G Ratio 1.6 1.1-2.5 Bilirubin, Total <0.2 0.0-1.2 Alkaline Phosphatase, S 94 39-117 AST (SGOT) 22 0-40 ALT (SGPT) 38 0-32 Xray : Chest (IN HOUSE) 2016-03-15 PROCEDURES Procedure Date Ordered Related Diagnosis Body Site STREP A ASSAY W/OPTIC Mar 15, 2016 INFLUENZA ASSAY W/OPTIC Mar 15, 2016 LAB NOT BILLED BY [facility] Mar 15, 2016 CHEST X-RAY Mar 15, 2016 VENIPUNCT, ROUTINE* Mar 15, 2016 Office Visit, Est Pt., Level 3 Mar 15, 2016 IMMUNIZATIONS No Known Immunizations
--- OUTSIDE RECORDS SUMMARY | 2017-01-02 18:02 | XMS REPORT | Clinical Summary ---
Author Author Admin, E Organization [facility] Address Unknown Phone Unavailable Allergies, Adverse Reactions, [...] Sinusitis, frontal, acute 461.1 Resolved Shikha Yokum RESPIRATORY THERAPY MANAGER Acute frontal sinusitis Pharyngitis 462 Resolved Shikha Yokum RESPIRATORY THERAPY MANAGER Acute pharyngitis Scabies 133.0 Resolved Shikha Yokum RESPIRATORY THERAPY MANAGER Scabies Folliculitis 704.8 Resolved Shikha Yokum RESPIRATORY THERAPY MANAGER Other specified diseases of hair and hair [...] Kirk PA ECZEMA ICD-692.9 Inactive Shikha Ageesiva RESPIRATORY THERAPY MANAGER OTITIS MEDIA ICD-382.9 Inactive Ary Kirk PA 09/16 PHARYNGITIS ICD-462 Inactive Andrei Nichols MD UNSPECIFIED DISORDER TEETH&SUPPORTING STRUCTURES ICD-525.9 12/29 Inactive Shikha Randolph RESPIRATORY THERAPY MANAGER PHARYNGITIS-ACUTE ICD-462 Inactive Rosalie Boyd RESPIRATORY THERAPY MANAGER DIARRHEA ICD-787.91 Inactive Andrei Nichols MD SHOULDER PAIN ICD-719.41 Inactive Shikha Randolph RESPIRATORY THERAPY MANAGER NAUSEA AND VOMITING ICD-787.01 Inactive Andrei Nichols [...] PhD Dental caries ICD-521.00 Inactive Shikha Yokum RESPIRATORY THERAPY MANAGER Tooth pain ICD-525.9 Inactive Prisca Lockwood MD PhD Head lice ICD-132.0 Inactive Prisca Lockwood MD PhD Upper respiratory infection ICD-465.9 Inactive Prisca Lockwood MD PhD Sinusitis, frontal, acute ICD-461.1 Inactive Shikha Yokum RESPIRATORY THERAPY MANAGER Pharyngitis ICD-462 Inactive Shikha Yokum RESPIRATORY THERAPY MANAGER 2013 Scabies ICD-133.0 Inactive Shikha Yokum RESPIRATORY THERAPY MANAGER 12/29 Folliculitis ICD-704.8 Inactive Shikha Yokum RESPIRATORY THERAPY MANAGER Cough ICD-786.2 Inactive Andrei Nichols MD SINUSITIS, ACUTE ICD-461.9 Inactive Jani Marrero MD Medication List Medication Instructions Start Date Stop Date Generic Name NDC Status Provider Patient Instruction MELOXICAM 15 MG TABS 1 daily for knee pain MELOXICAM [id number] Active Renetta Ryan APRN Active CYCLOBENZAPRINE HCL 10 MG TABS 1 three times a day as needed for muscle spasm CYCLOBENZAPRINE HCL 23437575650 Active Renetta Ryan APRN Active BUSPIRONE HCL 10 MG ORAL TABS 2 TABS PO BID BUSPIRONE HCL 30347587518 Active Renetta Ryan APRN Active AMITRIPTYLINE HCL 75 MG ORAL TABS 1 TAB Q HS AMITRIPTYLINE HCL 87114043572 Active Renetta Ryan APRN Active PROAIR HFA 108 (90 BASE) MCG/ACT AERS 2 puffs four times a day as needed 2015 ALBUTEROL SULFATE 27110247023 No Longer Active Renetta Ryan APRN Active KLONOPIN 1 MG TABS 1 tablet TID CLONAZEPAM 64184055889 No Longer Active Renetta Ryan APRN Active ZITHROMAX 250 MG TAB 2 po today, then 1 po q days 2-5 AZITHROMYCIN 80718596897 No Longer Active Jani Marrero MD Active IBUPROFEN 800 MG TABS 1 tab PO TID IBUPROFEN 89140020094 Active Jani Marrero MD Active WELLBUTRIN SR 100 MG ORAL [id number] 1 TAB PO DAILY BUPROPION HCL 60938013041 Active Jani Marrero MD Active AMITRIPTYLINE HCL 50 MG TAB 1 po q hs for sleep AMITRIPTYLINE HCL 46019585789 No Longer Active Jani Marrero MD Active PROMETHAZINE HCL 25 MG TABS 1 four times a day as needed for vomiting PROMETHAZINE HCL 80756294777 No Longer Active Jani Marrero MD Active AMOXICILLIN 500 MG TABS 2 tabs twice a day for 10 days AMOXICILLIN 10158780024 No Longer Active Jani Marrero MD Active SEROQUEL 200 MG ORAL TABS Take 1 tablet at hs QUETIAPINE FUMARATE 05442706103 No Longer Active Jani Marrero MD Active FETZIMA 40 MG ORAL [id number] LEVOMILNACIPRAN HCL 24185872186 No Longer Active Jani Marrero MD Active PROAIR HFA 108 (90 BASE) MCG/ACT AERS 2 puffs four times a day as needed 2011 ALBUTEROL SULFATE 43067201266 No Longer Active Alondra Denton MD Active IBUPROFEN 600 MG TAB 1 tablet three times a day as needed IBUPROFEN 08757705542 No Longer Active Alondra Denton MD Active LATUDA 20 MG TABS 1 tab at at night with meal LURASIDONE HCL 29415095669 No Longer Active Alondra Denton MD Active CYCLOBENZAPRINE HCL 10 MG TABS 1/2 to 1 tablet every 4 hours CYCLOBENZAPRINE HCL 65870811076 No Longer Active Alondra Denton MD Active CYCLOBENZAPRINE HCL 10 MG TABS 1/2 to 1 tablet by mouth three times daily as needed for muscle spasm/pain CYCLOBENZAPRINE HCL 68340797999 No Longer Active Alondra Denton MD Active SUPRAX 400 MG CAPS Take one tablet twice daily for 7 days CEFIXIME 27433590470 No Longer Active Shikha Yokum RESPIRATORY THERAPY MANAGER Active TESSALON PERLES 100 MG CAP 1 tablet by mouth 3 times daily 01/20 BENZONATATE 94881620932 No Longer Active Shikha Yokum RESPIRATORY THERAPY MANAGER Active HYDROXYZINE HCL 10 MG TABS 1 to 2 three times a day as needed for itching HYDROXYZINE HCL 76493136574 No Longer Active Shikha Yokum RESPIRATORY THERAPY MANAGER Active CYCLOBENZAPRINE HCL 10 MG TABS 1 three times a day as needed for back spasm CYCLOBENZAPRINE HCL 49262061647 No Longer Active Shikha Yokum RESPIRATORY THERAPY MANAGER Active SEROQUEL 200 MG TABS 1 tablet at bedtime. QUETIAPINE FUMARATE 71186238581 No Longer Active Shikha Yokum RESPIRATORY THERAPY MANAGER Active BACTRIM DS 800-160 MG TAB 1 tab by mouth twice daily TRIMETHOPRIM-SULFAMETHOXAZOLE 66211080904 No Longer Active Shikha Yokum RESPIRATORY THERAPY MANAGER Active STROMECTOL 3 MG TABS 5 tablets by mouth one time on an empty stomach, may repeat in 2 weeks if needed IVERMECTIN 98541166508 No Longer Active Shikha Yokum RESPIRATORY THERAPY MANAGER Active PERMETHRIN 5 % CREA apply neck to toes tonight and then rinse off in morning. repeat at 7 days PERMETHRIN 34079135242 No Longer Active Andrei Nichols MD Active MEDROL (NISA) 4 MG TABS 6 tabs on day 1, 5 tabs on day 2, 4 tabs on day 3, 3 tabs on day 4, 2 tabs on day 5, 1 tab on day 6 METHYLPREDNISOLONE 49403313815 No Longer Active Prisca Lockwood MD PhD Active AZITHROMYCIN 250 MG TABS 2 po qd x 1 day, then 1 po qd x 4 days AZITHROMYCIN 20023506928 No Longer Active Prisca Lockwood MD PhD Active CELEXA 20 MG TABS Take 1.5 tablets daily CITALOPRAM HYDROBROMIDE 39706851984 No Longer Active Prisca Lockwood MD PhD Active LOMOTIL 2.5-0.025 MG TAB 1 to 2 four times a day as needed for diarrhea 01/21 DIPHENOXYLATE-ATROPINE 32904428895 No Longer Active Prisca Lockwood MD PhD Active TAMIFLU 75 MG CAPS 1 bid x 5 days OSELTAMIVIR PHOSPHATE 00036233798 No Longer Active Rosalie Boyd APRN Active ZITHROMAX 250 MG TAB 2 po today, then 1 po q days 2-5 AZITHROMYCIN 64410168745 No Longer Active Rosalie Boyd APRN Active STROMECTOL 3 MG TABS 6 pills by mouth x 1; repeat in 10 days 2012 IVERMECTIN 45234203105 No Longer Active Rosalie Boyd APRN Active TYLENOL WITH CODEINE #3 300-30 MG TABS ONE TABLET FOUR TIMES A DAY NEEDED for pain or cough ACETAMINOPHEN-CODEINE 04529179724 No Longer Active Rosalie Boyd APRN Active GUAIFENESIN-CODEINE 100-10 MG/5ML SYRP 1 tsp PO q6h PRN cough GUAIFENESIN-CODEINE 46016662014 No Longer Active Rosalie Boyd APRN Active KEFLEX 500 MG CAP 1 po qid CEPHALEXIN 76373203369 No Longer Active Rosalie Boyd APRN Active GUAIFENESIN-CODEINE 100-10 MG/5ML SYRP 1 tsp PO q6h PRN cough GUAIFENESIN-CODEINE 05742570664 No Longer Active Rosalie Boyd APRN Active PROMETHAZINE HCL 25 MG TABS 1 four times a day as needed for nausea/vomiting PROMETHAZINE HCL 47569493413 No Longer Active Rosalie Boyd APRN Active LAMISIL AT 1 % CREA apply bid to rash TERBINAFINE HCL 81879965389 No Longer Active Andrei Nichols MD Active AMOXICILLIN 400 MG/5ML SUSR 6ml three times a day for 10 days AMOXICILLIN 36896629337 No Longer Active Andrei Nichols MD Active PROMETHAZINE HCL 25 MG TABS take 1 po Q 8 hours prn nausea and vomiting 12/11 PROMETHAZINE HCL 82364378420 No Longer Active Andrei Nichols MD Active BACTROBAN 2 % OINTMENT Apply bid to affected area MUPIROCIN 31974853261 No Longer Active Andrei Nichols MD Active GUAIFENESIN-CODEINE 100-10 MG/5ML SYRP 1 tsp PO q6h PRN cough GUAIFENESIN-CODEINE 06133270266 No Longer Active Andrei Nichols MD Active BACTRIM DS 800-160 MG TABS 1 po BID x 10 days SULFAMETHOXAZOLE-TRIMETHOPRIM 29957350917 No Longer Active Rosalie Boyd APRN Active GUAIFENESIN-CODEINE 100-10 MG/5ML SYRP 1-2 tsp PO q6h PRN cough GUAIFENESIN-CODEINE 12631245701 No Longer Active Giovany URBINA Active PREDNISONE 20 MG TABS 1 tablet by mouth twice daily for 2 days, then 1 daily for 2 days PREDNISONE 46918938754 No Longer Active Giovany URBINA Active HYDROCODONE-ACETAMINOPHEN 5-325 MG TABS 1/2 to 1 po q 4 hours prn pain 11/13 HYDROCODONE-ACETAMINOPHEN 21925135539 No Longer Active Rosalie Boyd RESPIRATORY THERAPY MANAGER Active PENICILLIN V POTASSIUM 500 MG TABS 1 TID PENICILLIN V POTASSIUM 31957224260 No Longer Active Andrei Nichols MD Active SEROQUEL 50 MG TABS 1 tablet at HS QUETIAPINE FUMARATE 17163853586 No Longer Active Andrei Nichols MD Active SEROQUEL 100 MG TABS 1 tablet at HS QUETIAPINE FUMARATE 47320324251 No Longer Active Andrei Nichols MD Active TRIAMCINOLONE ACETONIDE 0.1 % CREA apply three times daily prn rash TRIAMCINOLONE ACETONIDE 60167811745 No Longer Active Andrei Nichols MD Active AMOXICILLIN 500 MG TABS take one tab po tid x 10 days AMOXICILLIN 79525159730 No Longer Active Andrei Nichols MD Active CELEXA 20 MG TABS 1and 1/2 tablets by mouth daily CITALOPRAM HYDROBROMIDE 15889710843 No Longer Active Ary Pool PA Active FLEXERIL 10 MG TAB 1/2 to one tablet every 12 hours as needed CYCLOBENZAPRINE HCL 49464727949 No Longer Active Ary Pool PA Active CLONAZEPAM 1 MG TABS take at bedtime CLONAZEPAM 29366002236 No Longer Active Ary Pool PA Active PERMETHRIN 5 % CREA applyhead to toes tonight and then rinse off in 18 hours. repeat at 7 days if needed. PERMETHRIN 99666483680 No Longer Active Ary Pool PA Active AMOXICILLIN 500 MG CAPS 2 po BID x 10 days AMOXICILLIN 52052123882 No Longer Active Andrei Nichols MD Active TYLENOL WITH CODEINE #3 300-30 MG TABS 1 to 2 four times a day as needed for pain ACETAMINOPHEN-CODEINE 87408093798 No Longer Active Reta Hampton Active PREDNISONE 20 MG TAB 2 tabs daily for 5 days, then 1 daily for 5 days PREDNISONE 23379852726 No Longer Active Reta Hampton Active LOMOTIL 2.5-0.025 MG TAB 1 to 2 four times a day as needed for diarrhea 05/28 DIPHENOXYLATE-ATROPINE 03427685766 No Longer Active Reta Hampton Active ALPRAZOLAM 1 MG TABS 1 tab tid ALPRAZOLAM 44609535450 No Longer Active Reta Hampton Active AMOXICILLIN 500 MG CAPS 2 po BID x 10 days AMOXICILLIN 45626990297 No Longer Active Andrei Nichols MD Active AMOXICILLIN 500 MG TABS Take one tab by mouth 3 times daily, morning, afternoon and evening for 7 days. AMOXICILLIN 67943861897 No Longer Active Virginia Alejandra RN Active VICODIN 5-300 MG TABS one tab PO Q 6 hours PRN pain HYDROCODONE-ACETAMINOPHEN 72514524219 No Longer Active Virginia Alejandra RN Active FLAGYL 500 MG TABS four tabs PO one time METRONIDAZOLE 81586824563 No Longer Active Alondra Denton MD Active MELOXICAM 15 MG TABS 1 po q day for pain with food MELOXICAM 86161413069 No Longer Active Alondra Denton MD Active AMOXICILLIN 400 MG/5ML SUSR 5ml po TID x 10 days AMOXICILLIN 49305751914 No Longer Active Jani Marrero MD Active NIX CREME RINSE 1 % LIQD apply as directed tonight, repeat at 7 days PERMETHRIN 55640628920 No Longer Active Corky Mckeon DO Active QVAR 40 MCG/ACT AERS one puff three times a day as needed BECLOMETHASONE DIPROPIONATE 60385717009 No Longer Active Andrei Nichols MD Active METHOCARBAMOL 500 MG TABS 1 to 2 qid prn back spasm METHOCARBAMOL 36824779577 No Longer Active Andrei Nichols MD Active VISTARIL 25 MG CAPS 1-2 tablets three times a day as needed HYDROXYZINE PAMOATE 98666744875 No Longer Active Andrei Nichols MD Active SEROQUEL 100 MG TABS 1/2 TABLET at hs QUETIAPINE FUMARATE 64007585750 No Longer Active Aicha Rizzo RN Active BACTRIM DS 800-160 MG TAB 1 tab by mouth twice daily TRIMETHOPRIM-SULFAMETHOXAZOLE 40630487761 No Longer Active Prisca Lockwood MD PhD Active CYCLOBENZAPRINE HCL 10 MG TABS TAKE 1/2 - 1 TAB EVERY 12 HOURS NEEDED 2010 CYCLOBENZAPRINE HCL 43283663891 No Longer Active Andrei Nichols MD Active CYCLOBENZAPRINE HCL 10 MG TABS TAKE 1/2 - 1 TAB EVERY 12 HOURS NEEDED 2010 CYCLOBENZAPRINE HCL 10 MG TABS 991270 CYCLOBENZAPRINE HCL Inactive SEROQUEL 100 MG TABS 1/2 TABLET at hs SEROQUEL 100 MG TABS 065766 QUETIAPINE FUMARATE Inactive VISTARIL 25 MG CAPS 1-2 tablets three times a day as needed VISTARIL 25 MG CAPS 913852 HYDROXYZINE PAMOATE Inactive METHOCARBAMOL 500 MG TABS 1 to 2 qid prn back spasm METHOCARBAMOL 500 MG TABS 913660 METHOCARBAMOL Inactive QVAR 40 MCG/ACT AERS one puff three times a day as needed QVAR 40 MCG/ACT AERS BECLOMETHASONE DIPROPIONATE Inactive NIX CREME RINSE 1 % LIQD apply as directed carlotta, repeat at 7 days NIX CREME RINSE 1 % LIQD PERMETHRIN Inactive MELOXICAM 15 MG TABS 1 po q day for pain with food MELOXICAM 15 MG TABS 473952 MELOXICAM Inactive ALPRAZOLAM 1 MG TABS 1 tab tid ALPRAZOLAM 1 MG TABS 605585 ALPRAZOLAM Inactive LOMOTIL 2.5-0.025 MG TAB 1 to 2 four times a day as needed for diarrhea 05/28 LOMOTIL 2.5-0.025 MG TAB 1612303 DIPHENOXYLATE-ATROPINE Inactive PREDNISONE 20 MG TAB 2 tabs daily for 5 days, then 1 daily for 5 days PREDNISONE 20 MG TAB 049696 PREDNISONE Inactive TYLENOL WITH CODEINE #3 300-30 MG TABS 1 to 2 four times a day as needed for pain TYLENOL WITH CODEINE #3 300-30 MG TABS ACETAMINOPHEN-CODEINE Inactive PERMETHRIN 5 % CREA applyhead to toes tonight and then rinse off in 18 hours. repeat at 7 days if needed. PERMETHRIN 5 % CREA 849623 PERMETHRIN Inactive CLONAZEPAM 1 MG TABS take at bedtime CLONAZEPAM 1 MG TABS 799013 CLONAZEPAM Inactive FLEXERIL 10 MG TAB 1/2 to one tablet every 12 hours as needed FLEXERIL 10 MG TAB CYCLOBENZAPRINE HCL Inactive CELEXA 20 MG TABS 1and 1/2 tablets by mouth daily CELEXA 20 MG TABS 542443 CITALOPRAM HYDROBROMIDE Inactive AMOXICILLIN 500 MG TABS take one tab po tid x 10 days AMOXICILLIN 500 MG TABS 364345 AMOXICILLIN Inactive TRIAMCINOLONE ACETONIDE 0.1 % CREA apply three times daily prn rash TRIAMCINOLONE ACETONIDE 0.1 % CREA 5916831 TRIAMCINOLONE ACETONIDE Inactive SEROQUEL 100 MG TABS 1 tablet at HS SEROQUEL 100 MG TABS 757087 QUETIAPINE FUMARATE Inactive SEROQUEL 50 MG TABS 1 tablet at HS SEROQUEL 50 MG TABS 303751 QUETIAPINE FUMARATE Inactive HYDROCODONE-ACETAMINOPHEN 5-325 MG TABS 1/2 to 1 po q 4 hours prn pain 11/13 HYDROCODONE-ACETAMINOPHEN 5-325 MG TABS 811878 HYDROCODONE- ACETAMINOPHEN Inactive PREDNISONE 20 MG TABS 1 tablet by mouth twice daily for 2 days, then 1 daily for 2 days PREDNISONE 20 MG TABS 115889 PREDNISONE Inactive GUAIFENESIN-CODEINE 100-10 MG/5ML SYRP 1-2 tsp PO q6h PRN cough GUAIFENESIN-CODEINE 100-10 MG/5ML SYRP 455992 GUAIFENESIN-CODEINE Inactive GUAIFENESIN-CODEINE 100-10 MG/5ML SYRP 1 tsp PO q6h PRN cough GUAIFENESIN-CODEINE 100-10 MG/5ML SYRP 981211 GUAIFENESIN-CODEINE Inactive BACTROBAN 2 % OINTMENT Apply bid to affected area BACTROBAN 2 % OINTMENT 266249 MUPIROCIN Inactive PROMETHAZINE HCL 25 MG TABS take 1 po Q 8 hours prn nausea and vomiting 12/11 PROMETHAZINE HCL 25 MG TABS 433426 PROMETHAZINE HCL Inactive AMOXICILLIN 400 MG/5ML SUSR 6ml three times a day for 10 days AMOXICILLIN 400 MG/5ML SUSR 621575 AMOXICILLIN Inactive LAMISIL AT 1 % CREA apply bid to rash LAMISIL AT 1 % CREA 091870 TERBINAFINE HCL Inactive PROMETHAZINE HCL 25 MG TABS 1 four times a day as needed for nausea/vomiting PROMETHAZINE HCL 25 MG TABS 778511 PROMETHAZINE HCL Inactive GUAIFENESIN-CODEINE 100-10 MG/5ML SYRP 1 tsp PO q6h PRN cough GUAIFENESIN-CODEINE 100-10 MG/5ML SYRP 095206 GUAIFENESIN-CODEINE Inactive KEFLEX 500 MG CAP 1 po qid KEFLEX 500 MG CAP 786065 CEPHALEXIN Inactive GUAIFENESIN-CODEINE 100-10 MG/5ML SYRP 1 tsp PO q6h PRN cough GUAIFENESIN-CODEINE 100-10 MG/5ML SYRP 963299 GUAIFENESIN-CODEINE Inactive TYLENOL WITH CODEINE #3 300-30 MG TABS ONE TABLET FOUR TIMES A DAY NEEDED for pain or cough TYLENOL WITH CODEINE #3 300-30 MG TABS ACETAMINOPHEN-CODEINE Inactive STROMECTOL 3 MG TABS 6 pills by mouth x 1; repeat in 10 days 2012 STROMECTOL 3 MG TABS 706853 IVERMECTIN Inactive LOMOTIL 2.5-0.025 MG TAB 1 to 2 four times a day as needed for diarrhea 01/21 LOMOTIL 2.5-0.025 MG TAB 2758639 DIPHENOXYLATE-ATROPINE Inactive CELEXA 20 MG TABS Take 1.5 tablets daily CELEXA 20 MG TABS 520275 CITALOPRAM HYDROBROMIDE Inactive PERMETHRIN 5 % CREA apply neck to toes tonight and then rinse off in morning. repeat at 7 days PERMETHRIN 5 % CREA 826063 PERMETHRIN Inactive STROMECTOL 3 MG TABS 5 tablets by mouth one time on an empty stomach, may repeat in 2 weeks if needed STROMECTOL 3 MG TABS 589819 IVERMECTIN Inactive BACTRIM DS 800-160 MG TAB 1 tab by mouth twice daily BACTRIM DS 800-160 MG TAB 358696 TRIMETHOPRIM-SULFAMETHOXAZOLE Inactive SEROQUEL 200 MG TABS 1 tablet at bedtime. SEROQUEL 200 MG TABS 108029 QUETIAPINE FUMARATE Inactive CYCLOBENZAPRINE HCL 10 MG TABS 1 three times a day as needed for back spasm CYCLOBENZAPRINE HCL 10 MG TABS 157709 CYCLOBENZAPRINE HCL Inactive HYDROXYZINE HCL 10 MG TABS 1 to 2 three times a day as needed for itching HYDROXYZINE HCL 10 MG TABS 520088 HYDROXYZINE HCL Inactive TESSALON PERLES 100 MG CAP 1 tablet by mouth 3 times daily 01/20 TESSALON PERLES 100 MG CAP 630147 BENZONATATE Inactive CYCLOBENZAPRINE HCL 10 MG TABS 1/2 to 1 tablet by mouth three times daily as needed for muscle spasm/pain CYCLOBENZAPRINE HCL 10 MG TABS 325928 CYCLOBENZAPRINE HCL Inactive CYCLOBENZAPRINE HCL 10 MG TABS 1/2 to 1 tablet every 4 hours CYCLOBENZAPRINE HCL 10 MG TABS 016181 CYCLOBENZAPRINE HCL Inactive LATUDA 20 MG TABS 1 tab at at night with meal LATUDA 20 MG TABS LURASIDONE HCL Inactive IBUPROFEN 600 MG TAB 1 tablet three times a day as needed IBUPROFEN 600 MG TAB 920309 IBUPROFEN Inactive PROAIR HFA 108 (90 BASE) MCG/ACT AERS 2 puffs four times a day as needed 2011 PROAIR HFA 108 (90 BASE) MCG/ACT AERS ALBUTEROL SULFATE Inactive FETZIMA 40 MG ORAL [id number] FETZIMA 40 MG ORAL [id number] LEVOMILNACIPRAN HCL Inactive SEROQUEL 200 MG ORAL TABS Take 1 tablet at hs SEROQUEL 200 MG ORAL TABS 279426 QUETIAPINE FUMARATE Inactive AMOXICILLIN 500 MG TABS 2 tabs twice a day for 10 days AMOXICILLIN 500 MG TABS 325748 AMOXICILLIN Inactive PROMETHAZINE HCL 25 MG TABS 1 four times a day as needed for vomiting PROMETHAZINE HCL 25 MG TABS 427400 PROMETHAZINE HCL Inactive KLONOPIN 1 MG TABS 1 tablet TID KLONOPIN 1 MG TABS 432069 CLONAZEPAM Inactive PROAIR HFA 108 (90 BASE) MCG/ACT AERS 2 puffs four times a day as needed 2015 PROAIR HFA 108 (90 BASE) MCG/ACT AERS ALBUTEROL SULFATE Inactive BACTRIM DS 800-160 MG TAB 1 tab by mouth twice daily BACTRIM DS 800-160 MG TAB 095574 TRIMETHOPRIM-SULFAMETHOXAZOLE Inactive AMOXICILLIN 400 MG/5ML SUSR 5ml po TID x 10 days AMOXICILLIN 400 MG/5ML SUSR 297685 AMOXICILLIN Inactive FLAGYL 500 MG TABS four tabs PO one time FLAGYL 500 MG TABS 319503 METRONIDAZOLE Inactive AMOXICILLIN 500 MG TABS Take one tab by mouth 3 times daily, morning, afternoon and evening for 7 days. AMOXICILLIN 500 MG TABS 254590 AMOXICILLIN Inactive AMOXICILLIN 500 MG CAPS 2 po BID x 10 days AMOXICILLIN 500 MG CAPS 800686 AMOXICILLIN Inactive AMOXICILLIN 500 MG CAPS 2 po BID x 10 days AMOXICILLIN 500 MG CAPS 454054 AMOXICILLIN Inactive PENICILLIN V POTASSIUM 500 MG TABS 1 TID PENICILLIN V POTASSIUM 500 MG TABS 384602 PENICILLIN V POTASSIUM Inactive BACTRIM DS 800-160 MG TABS 1 po BID x 10 days BACTRIM DS 800-160 MG TABS 156167 SULFAMETHOXAZOLE-TRIMETHOPRIM Inactive ZITHROMAX 250 MG TAB 2 po today, then 1 po q days 2-5 ZITHROMAX 250 MG TAB 6130526 AZITHROMYCIN Inactive TAMIFLU 75 MG CAPS 1 bid x 5 days TAMIFLU 75 MG CAPS 224646 OSELTAMIVIR PHOSPHATE Inactive AZITHROMYCIN 250 MG TABS 2 po qd x 1 day, then 1 po qd x 4 days AZITHROMYCIN 250 MG TABS 3867413 AZITHROMYCIN Inactive MEDROL (NISA) 4 MG TABS 6 tabs on day 1, 5 tabs on day 2, 4 tabs on day 3, 3 tabs on day 4, 2 tabs on day 5, 1 tab on day 6 MEDROL ( NISA) 4 MG TABS 118535 METHYLPREDNISOLONE Inactive SUPRAX 400 MG CAPS Take one tablet twice daily for 7 days SUPRAX 400 MG CAPS CEFIXIME Inactive AMITRIPTYLINE HCL 50 MG TAB 1 po q hs for sleep AMITRIPTYLINE HCL 50 MG TAB 445220 AMITRIPTYLINE HCL Inactive ZITHROMAX 250 MG TAB 2 po today, then 1 po q days 2-5 ZITHROMAX 250 MG TAB 7571025 AZITHROMYCIN Inactive Immunizations Vaccine Administration Date Value Standard Description Seasonal influenza vaccine, injectable, containing preservative, for > 3 years old (Afluria, FluLaval, Fluzone, Fluvirin, Fluarix, Agriflu(>=18 yo)) Fluzone (>3 yrs.) [[id number]] Influenza, seasonal, injectable pneumococcal immunization administered Pneumovax 23 [CVX33] pneumococcal polysaccharide vaccine, 23 valent Seasonal influenza vaccine, injectable, containing preservative, for > 3 years old (Afluria, FluLaval, Fluzone, Fluvirin, Fluarix, Agriflu(>=18 yo)) Fluzone (>3 yrs.) [[id number]] Influenza, seasonal, injectable Seasonal influenza vaccine, injectable, containing preservative, for > 3 years old (Afluria, FluLaval, Fluzone, Fluvirin, Fluarix, Agriflu(>=18 yo)) Fluzone (>3 yrs.) [[id number]] Influenza, seasonal, injectable hepatitis B vaccine #1 [...] Measured Encounters Code Encounter Date Provider Facility CPT-08069 Level 3 Est. Patient 16:47:47 CDT Renetta Ryan [facility] CPT-27720 Level 3 Est. Patient 11:04:11 MOTOR VEHICLE LECTURER Jani Marrero MD [facility] CPT-31340 Level 3 Est. Patient 12:02:27 MOTOR VEHICLE LECTURER Andrei Nichols MD [facility] CPT-00509 Level 3 Est. Patient 12:47:17 MOTOR VEHICLE LECTURER Andrei Nichols MD [facility] CPT-33977 Level 3 Est. Patient 14:51:20 MOTOR VEHICLE LECTURER Shikha Randolph [facility] CPT-65678 Level 3 Est. Patient 10:42:38 CDT Shikha Randolph [facility] CPT-15617 Level 3 Est. Patient 18:20:39 CDT Prisca Lockwood MD PhD [facility]-10685 Level 3 Est. Patient 16:42:47 MOTOR VEHICLE LECTURER Rosalie Boyd [facility] CPT-79618 Level 3 Est. Patient 14:34:36 MOTOR VEHICLE LECTURER Rosalie Boyd [facility] CPT-15819 Level 4 Est. Patient 10:23:07 MOTOR VEHICLE LECTURER Andrei Nichols MD [facility]-66657 Level 3 Est. Patient 16:47:31 MOTOR VEHICLE LECTURER Andrei Nichols MD [facility]-75368 Level 3 Est. Patient 11:59:14 CDT Rosalie Boyd [facility]-00006 Level 3 Est. Patient 15:30:34 CDT Giovany URBINA [facility] CPT-55633 Level 3 Est. Patient 11:03:03 CDT Rosalie Boyd [facility] CPT-51425 Level 3 Est. Patient 11:08:07 CDT Rosalie Boyd [facility] CPT-30881 Level 3 Est. Patient 14:07:32 CDT Andrei Nichols MD [facility]-75665 Level 3 Est. Patient 17:08:28 CDT Andrei Nichols MD [facility]-89255 Level 3 Est. Patient 13:10:13 CDT Jani Marrero MD [facility]-43551 Level 3 Est. Patient 11:27:12 CDT Jani Marrero MD [facility]-32174 Level 3 Est. Patient 13:44:42 CDT Andrei Nichols MD [facility]-31130 Level 3 Est. Patient 12:34:57 MOTOR VEHICLE LECTURER Andrei Nichols MD [facility] CPT-21177 Level 3 Est. Patient 15:30:06 CDT Jani Marrero MD [facility] CPT-47843 Level 3 Est. Patient 21:59:00 CDT Corky Mckeon [facility] CPT-93344 Level 3 Est. Patient 17:12:49 CDT Andrei Nichols MD [facility] CPT-13888 Level 4 Est. Patient 12:27:45 MOTOR VEHICLE LECTURER Andrei Nichols MD [facility] CPT-32328 Level 3 Est. Patient 12:15:34 MOTOR VEHICLE LECTURER Andrei Nichols MD [facility] Procedures Code Procedure Name Date Entry Date Standard Description CPT-70418 Knee, left, 3V - XRAY USE ONLY 14:53:02 CDT CPT-OV Office Visit 11:36:40 CDT CPT-94690 Administration 2+ single or combination vaccines inc oral 07:50:30 CDT CPT-61828 Administration single or combination vaccine inc oral 07 :50:30 CDT CPT-10891 Pneumovax 07:50:30 CDT CPT-22135 Influenza split virus > age 3 07:50:30 CDT CPT-OV Office Visit 11:49:10 [employer] CPT-55458 Nexplanon Removal with Reinsertion 14:02:06 [employer] CPT-J7307 Nexplanon (Implant) 14:02:06 [employer]OR VEH[employer]LE [employer]ER CPT-OV Office Visit 14:02:06 [employer]OR VEHICLE [employer]ER CPT-OV 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
--- OUTSIDE RECORDS SUMMARY | 2017-01-02 18:03 | XMS REPORT ---
Author Author HARESH VIZCAINO [facility] Address [address] [address] Care Team Providers Care Animal Bounty Hunter Name Role Phone CARRILLO, HARESH Unavailable ALCIRA ABDALLA Unavailable Problems Problem SNOMED Onset Date Resolved Date Status Mental health problem 331112036 Active Counseling procedure with explicit context 008854304 11/08 Active Allergies, Adverse Reactions NA Care Plan Goal Instructions Client will be functioning more independently with supports and have a life worth living. Engage with treatment team to build rapport. Learn and practice coping skills to reduce symptoms and improve functioning. The following Services will be utilized 1 - 3 times until goal is reached: Improve and maintain functioning through medical psychiatric services. Initial Psychiatric Evaluation, Ongoing medication monitoring and management , Case Conference with multidisciplinary members of the [facility] team as indicated, and/or Collaboration and coordination with outside medical providers as indicated by providing the following services: 22062 interactive complexity 69899 psychiatric diagnostic eval w/ meds 81719 30 min psychotherapy add-on 36222 45 [place] [address] 60 min psychotherapy add-on 23162 med injection 89205 New Patient E&M (level 1) 95355 New Patient E&M (level 2) 13324 New Patient E&M (level 3) 91898 New patient E&M (level 4) 53272 New Patient E&M (level 5) 50582 Established Patient E&M (level 1) 03673 Established Patient E&M (level 2) 03210 Established Patient E&M (level 3) 61059 Established Patient E&M (level 4) 37891 Established Patient E&M (level 5 ) 9935x prolonged service code 03828 case conference w/o clt & ariana w/ 85276 case conference w/o clt w/ H0038 Peer Support Pamela Medications NA Lab Results NA Encounters Date Time Service Code Provider 10:05:00 am HARESH CARRILLO Family History Functional Status NA Immunizations NA Vital Signs NA Social History Date Smoking Status SNOMED Code Current Every Day Smoker [id number] Hospital Discharge Instructions NA Instructions * Not Applicable Procedures NA Purpose Electronic Copy
--- OUTSIDE RECORDS SUMMARY | 2017-01-02 18:03 | XMS REPORT ---
Author Author CRISTINO RUSH [facility] eClinicalWorks Address Unknown Phone Unavailable Care Team Providers Care Edge Worker Name Role Phone CRISTINO RUSH CP Unavailable Allergies No Known Allergies Problems Problem Type Condition Code Onset Dates Condition Status Problem Migraine without aura and with status migrainosus, not intractable G43.001 Active Problem Morbid obesity due to excess calories E66.01 Active Problem Obesity (BMI 30-39.9) E66.9 Active Problem Lumbago with sciatica, right side M54.41 Active Assessment Obesity (BMI 30-39.9) E66.9 Active Problem Other chronic pain G89.29 Active Assessment Gastroesophageal reflux disease without esophagitis K21.9 Active Assessment Family history of migraine Z82.0 Active Problem Lumbago with sciatica, left side M54.42 Active Problem Family history of hypertension Z82.49 Active Problem History of substance abuse Z87.898 Active Problem Routine health maintenance Z00.00 Active Problem Family history of diabetes mellitus Z83.3 Active Assessment Lumbago with sciatica, left side M54.42 Active Assessment Family history of hypertension Z82.49 Active Assessment Other chronic pain G89.29 Active Assessment Lumbago with sciatica, right side M54.41 Active Assessment Family history of diabetes mellitus Z83.3 Active Assessment Routine health maintenance Z00.00 Active Assessment Migraine without aura and with status migrainosus, not intractable G43.001 Active Problem Family history of migraine Z82.0 Active Assessment History of substance abuse Z87.898 Active Problem Gastroesophageal reflux disease without esophagitis K21.9 Active Medications No Known Medications Procedures Procedure Coding System Code Date GLYCATED HEMOGLOBIN TEST CPT-4 04814 Dec 27, 2015 VENIPUNCT, ROUTINE* CPT-4 41077 Dec 27, 2015 LAB NOT BILLED BY [facility] CPT-4 NOBLL Dec 27, 2015 X-RAY EXAM OF LOWER SPINE CPT-4 44637 Dec 27, 2015 X-RAY EXAM OF THORACIC SPINE CPT-4 14928 Dec 27, 2015 Results Name Result Date Reference Range Unit Abnormality Flag ROUTINE VENIPUNCTURE Summary Purpose eClinicalWorks Submission
--- OUTSIDE RECORDS SUMMARY | 2017-01-02 18:04 | XMS REPORT ---
Author Author CRISTINO RUSH Organization e[employer] Address Unknown Phone Unavailable Care Team Providers Care Band Maker Name Role Phone CRISTINO RUSH CP Unavailable Allergies No Known Allergies Problems Problem Type Condition Code Onset Dates Condition Status Problem Migraine without aura and with status migrainosus, not intractable G43.001 Active Problem Morbid obesity due to excess calories E66.01 Active Problem Obesity (BMI 30-39.9) E66.9 Active Problem Family history of migraine Z82.0 Active Problem Gastroesophageal reflux disease without esophagitis K21.9 Active Problem Lumbago with sciatica, right side M54.41 Active Problem Other chronic pain G89.29 Active Problem Lumbago with sciatica, left side M54.42 Active Problem Family history of hypertension Z82.49 Active Problem History of substance abuse Z87.898 Active Problem Routine health maintenance Z00.00 Active Problem Family history of diabetes mellitus Z83.3 Active Medications Medication Code System Code Instructions Start Date End Date Status Dosage Fish Oil [facility] [address]-67 1000 MG Orally twice a day Dec 30, 2015Mar 1 capsule Results No Known Results Summary Purpose eClinicalWorks Submission
--- OUTSIDE RECORDS SUMMARY | 2017-01-02 18:04 | XMS REPORT | Clinical Summary ---
Author Author Admin, QIE Organization [facility] Address Unknown Phone Unavailable Allergies, Adverse Reactions, [...] PhD Diarrhea Dental caries 521.00 Resolved Shikha Randolph APRN Dental caries, unspecified Tooth pain 525.9 Resolved Prisca Lockwood MD PhD Unspecified disorder of the teeth and supporting structures Head lice 132.0 Resolved Prisca Lockwood MD PhD Pediculus capitis [head louse] Upper respiratory infection 465.9 Resolved Prisca Lockwood MD PhD Acute upper respiratory infections of unspecified site Sinusitis, frontal, acute 461.1 Resolved Shikha Yokum [employer]INTE[employer] SUPERVISOR Acute frontal sinusitis Pharyngitis 462 Resolved Shikha Yokum CAMP MAINTENANCE SUPERVISOR Acute pharyngitis Scabies 133.0 Resolved Shikha Yokum [employer] MAINTENANCE SUPERVISOR Scabies Folliculitis 704.8 Resolved Shikha Yokum [employer]AMP MAINTENANCE SUPERVISOR Other specified diseases of hair and hair follicles Cough 786.2 Resolved Andrei Nichols MD Cough Dysuria 788.1 Active Shikha Tomasa SORIANO Dysuria Vomiting 787.03 Active Andrei Nichols MD [...] Andrei Nichols MD BRONCHITIS ICD-490 Inactive Andrei Ncihols MD 2012 DIARRHEA ICD-787.91 Inactive Ary Pool PA SCABIES ICD-133.0 Inactive Ary Reagan PA ECZEMA ICD-692.9 Inactive Shikha Tomasa CAMP MAINTENANCE SUPERVISOR OTITIS MEDIA ICD-382.9 Inactive Ary Kirk PA 09/16 PHARYNGITIS ICD-462 Inactive Andrei Nichols MD UNSPECIFIED DISORDER TEETH&SUPPORTING STRUCTURES ICD-525.9 12/29 Inactive Shikha Randolph CAMP MAINTENANCE SUPERVISOR PHARYNGITIS-ACUTE ICD-462 Inactive Rosalie Boyd CAMP MAINTENANCE SUPERVISOR DIARRHEA ICD-787.91 Inactive Andrei Nichols MD SHOULDER PAIN ICD-719.41 Inactive Shikha Randolph CAMP MAINTENANCE SUPERVISOR NAUSEA AND VOMITING ICD-787.01 Inactive Andrei Nichols [...] PhD Dental caries ICD-521.00 Inactive Shikha Yokum [employer] MAINTENANCE SUPERVISOR Tooth pain ICD-525.9 Inactive Prisca Lockwood MD PhD Head lice ICD-132.0 Inactive Prisca Lockwood MD PhD Upper respiratory infection ICD-465.9 Inactive Prisca Lockwood MD PhD Sinusitis, frontal, acute ICD-461.1 Inactive Shikha Yokum [employer]AMP MAINTENANCE SUPERVISOR Pharyngitis ICD-462 Inactive Shikha Yokum CAMP MAINTENANCE SUPERVISOR 2013 Scabies ICD-133.0 Inactive Shikha Yokum CAMP MAINTENANCE SUPERVISOR 12/29 Folliculitis ICD-704.8 Inactive Shikha Yokum CAMP MAINTENANCE SUPERVISOR Cough ICD-786.2 Inactive Andrei Nichols MD SINUSITIS, ACUTE ICD-461.9 Inactive Jani Marrero MD Medication List Medication Instructions Start Date Stop Date Generic Name NDC Status Provider Patient Instruction ZITHROMAX 250 MG TAB 2 po today, then 1 po q days 2-5 AZITHROMYCIN 27976599346 No Longer Active Jani Marrero MD Active IBUPROFEN 800 MG TABS 1 tab PO TID IBUPROFEN 73160524981 Active Jani Marrero MD Active WELLBUTRIN SR 100 MG ORAL [id number] 1 TAB PO DAILY BUPROPION HCL 16447742928 Active Jani Marrero MD Active AMITRIPTYLINE HCL 50 MG TAB 1 po q hs for sleep AMITRIPTYLINE HCL 36416757101 No Longer Active Jani Marrero MD Active PROMETHAZINE HCL 25 MG TABS 1 four times a day as needed for vomiting PROMETHAZINE HCL 29016767711 No Longer Active Jani Marrero MD Active AMOXICILLIN 500 MG TABS 2 tabs twice a day for 10 days AMOXICILLIN 85231234326 No Longer Active Jani Marrero MD Active SEROQUEL 200 MG ORAL TABS Take 1 tablet at hs QUETIAPINE FUMARATE 80013555598 No Longer Active Jani Marrero MD Active FETZIMA 40 MG ORAL [id number] LEVOMILNACIPRAN HCL 32497104983 No Longer Active Jani Marrero MD Active PROAIR HFA 108 (90 BASE) MCG/ACT AERS 2 puffs four times a day as needed 2015 ALBUTEROL SULFATE 40842096666 Active Andrei Nichols MD Active KLONOPIN 1 MG TABS 1 tablet TID CLONAZEPAM 43379753489 Active Andrei Nichols MD Active PROAIR HFA 108 (90 BASE) MCG/ACT AERS 2 puffs four times a day as needed 2011 ALBUTEROL SULFATE 64413037283 No Longer Active Alondra Denton MD Active IBUPROFEN 600 MG TAB 1 tablet three times a day as needed IBUPROFEN 55600211453 No Longer Active Alondra Denton MD Active LATUDA 20 MG TABS 1 tab at at night with meal LURASIDONE HCL 36090194228 No Longer Active Alondra Denton MD Active CYCLOBENZAPRINE HCL 10 MG TABS 1/2 to 1 tablet every 4 hours CYCLOBENZAPRINE HCL 35455149821 No Longer Active Alondra Denton MD Active CYCLOBENZAPRINE HCL 10 MG TABS 1/2 to 1 tablet by mouth three times daily as needed for muscle spasm/pain CYCLOBENZAPRINE HCL 74360751384 No Longer Active Alondra Denton MD Active SUPRAX 400 MG CAPS Take one tablet twice daily for 7 days CEFIXIME 42763870983 No Longer Active Shikha Yokum [employer]AMP MAINTENANCE SUPERVISOR Active TESSALON PERLES 100 MG CAP 1 tablet by mouth 3 times daily 01/20 BENZONATATE 66873675918 No Longer Active Shikha Yokum CAMP MAINTENANCE SUPERVISOR Active HYDROXYZINE HCL 10 MG TABS 1 to 2 three times a day as needed for itching HYDROXYZINE HCL 64303419494 No Longer Active Shikha Yokum CAMP MAINTENANCE SUPERVISOR Active CYCLOBENZAPRINE HCL 10 MG TABS 1 three times a day as needed for back spasm CYCLOBENZAPRINE HCL 03710692009 No Longer Active Shikha Yokum CAMP MAINTENANCE SUPERVISOR Active SEROQUEL 200 MG TABS 1 tablet at bedtime. QUETIAPINE FUMARATE 05416319837 No Longer Active Shikha Yokum CAMP MAINTENANCE SUPERVISOR Active BACTRIM DS 800-160 MG TAB 1 tab by mouth twice daily TRIMETHOPRIM-SULFAMETHOXAZOLE 43008496571 No Longer Active Shikha Yokum CAMP MAINTENANCE SUPERVISOR Active STROMECTOL 3 MG TABS 5 tablets by mouth one time on an empty stomach, may repeat in 2 weeks if needed IVERMECTIN 32863129942 No Longer Active Shikha Yokum CAMP MAINTENANCE SUPERVISOR Active PERMETHRIN 5 % CREA apply neck to toes tonight and then rinse off in morning. repeat at 7 days PERMETHRIN 90457761930 No Longer Active Andrei Nichols MD Active MEDROL (NISA) 4 MG TABS 6 tabs on day 1, 5 tabs on day 2, 4 tabs on day 3, 3 tabs on day 4, 2 tabs on day 5, 1 tab on day 6 METHYLPREDNISOLONE 27761241708 No Longer Active Prisca Lockwood MD PhD Active AZITHROMYCIN 250 MG TABS 2 po qd x 1 day, then 1 po qd x 4 days AZITHROMYCIN 79611175222 No Longer Active Prisca Lockwood MD PhD Active CELEXA 20 MG TABS Take 1.5 tablets daily CITALOPRAM HYDROBROMIDE 08250181238 No Longer Active Prisca Lockwood MD PhD Active LOMOTIL 2.5-0.025 MG TAB 1 to 2 four times a day as needed for diarrhea 01/21 DIPHENOXYLATE-ATROPINE 84524535900 No Longer Active Prisca Lockwood MD PhD Active TAMIFLU 75 MG CAPS 1 bid x 5 days OSELTAMIVIR PHOSPHATE 52550512940 No Longer Active Rosalie Boyd APRN Active ZITHROMAX 250 MG TAB 2 po today, then 1 po q days 2-5 AZITHROMYCIN 21386260717 No Longer Active Rosalie Boyd APRN Active STROMECTOL 3 MG TABS 6 pills by mouth x 1; repeat in 10 days 2012 IVERMECTIN 76926312641 No Longer Active Rosalie Boyd APRN Active TYLENOL WITH CODEINE #3 300-30 MG TABS ONE TABLET FOUR TIMES A DAY NEEDED for pain or cough ACETAMINOPHEN-CODEINE 68217716443 No Longer Active Rosalie Boyd APRN Active GUAIFENESIN-CODEINE 100-10 MG/5ML SYRP 1 tsp PO q6h PRN cough GUAIFENESIN-CODEINE 15734542455 No Longer Active Rosalie Boyd APRN Active KEFLEX 500 MG CAP 1 po qid CEPHALEXIN 98416321129 No Longer Active Rosalie Boyd APRN Active GUAIFENESIN-CODEINE 100-10 MG/5ML SYRP 1 tsp PO q6h PRN cough GUAIFENESIN-CODEINE 18826624373 No Longer Active Rosalie Boyd APRN Active PROMETHAZINE HCL 25 MG TABS 1 four times a day as needed for nausea/vomiting PROMETHAZINE HCL 22291063026 No Longer Active Rosalie Boyd APRN Active LAMISIL AT 1 % CREA apply bid to rash TERBINAFINE HCL 03619229867 No Longer Active Andrei Nichols MD Active AMOXICILLIN 400 MG/5ML SUSR 6ml three times a day for 10 days AMOXICILLIN 20177379407 No Longer Active Andrei Nichols MD Active PROMETHAZINE HCL 25 MG TABS take 1 po Q 8 hours prn nausea and vomiting 12/11 PROMETHAZINE HCL 39879605399 No Longer Active Andrei Nichols MD Active BACTROBAN 2 % OINTMENT Apply bid to affected area MUPIROCIN 84015228514 No Longer Active Andrei Nichols MD Active GUAIFENESIN-CODEINE 100-10 MG/5ML SYRP 1 tsp PO q6h PRN cough GUAIFENESIN-CODEINE 67619574031 No Longer Active Andrei Nichols MD Active BACTRIM DS 800-160 MG TABS 1 po BID x 10 days SULFAMETHOXAZOLE-TRIMETHOPRIM 51753345242 No Longer Active Rosalie Boyd APRN Active GUAIFENESIN-CODEINE 100-10 MG/5ML SYRP 1-2 tsp PO q6h PRN cough GUAIFENESIN-CODEINE 00191663273 No Longer Active Giovany URBINA Active PREDNISONE 20 MG TABS 1 tablet by mouth twice daily for 2 days, then 1 daily for 2 days PREDNISONE 58133931541 No Longer Active Giovany URBINA Active HYDROCODONE-ACETAMINOPHEN 5-325 MG TABS 1/2 to 1 po q 4 hours prn pain 11/13 HYDROCODONE-ACETAMINOPHEN 25106172946 No Longer Active Rosalie Boyd APRN Active PENICILLIN V POTASSIUM 500 MG TABS 1 TID PENICILLIN V POTASSIUM 26847186854 No Longer Active Andrei Nichols MD Active SEROQUEL 50 MG TABS 1 tablet at HS QUETIAPINE FUMARATE 25417969280 No Longer Active Andrei Nichols MD Active SEROQUEL 100 MG TABS 1 tablet at HS QUETIAPINE FUMARATE 04691024569 No Longer Active Andrei Nichols MD Active TRIAMCINOLONE ACETONIDE 0.1 % CREA apply three times daily prn rash TRIAMCINOLONE ACETONIDE 86131319819 No Longer Active Andrei Nichols MD Active AMOXICILLIN 500 MG TABS take one tab po tid x 10 days AMOXICILLIN 38856268100 No Longer Active Andrei Nichols MD Active CELEXA 20 MG TABS 1and 1/2 tablets by mouth daily CITALOPRAM HYDROBROMIDE 24187313492 No Longer Active Ary Pool PA Active FLEXERIL 10 MG TAB 1/2 to one tablet every 12 hours as needed CYCLOBENZAPRINE HCL 81821689107 No Longer Active Ary Pool PA Active CLONAZEPAM 1 MG TABS take at bedtime CLONAZEPAM 88716899933 No Longer Active Ary Pool PA Active PERMETHRIN 5 % CREA applyhead to toes tonight and then rinse off in 18 hours. repeat at 7 days if needed. PERMETHRIN 27951787014 No Longer Active Ary Pool PA Active AMOXICILLIN 500 MG CAPS 2 po BID x 10 days AMOXICILLIN 36014307600 No Longer Active Andrei Nichols MD Active TYLENOL WITH CODEINE #3 300-30 MG TABS 1 to 2 four times a day as needed for pain ACETAMINOPHEN-CODEINE 55170221669 No Longer Active Reta Hampton Active PREDNISONE 20 MG TAB 2 tabs daily for 5 days, then 1 daily for 5 days PREDNISONE 52772486223 No Longer Active Reta Hampton Active LOMOTIL 2.5-0.025 MG TAB 1 to 2 four times a day as needed for diarrhea 05/28 DIPHENOXYLATE-ATROPINE 18388449170 No Longer Active Reta Hampton Active ALPRAZOLAM 1 MG TABS 1 tab tid ALPRAZOLAM 69989054998 No Longer Active Reta Hampton Active AMOXICILLIN 500 MG CAPS 2 po BID x 10 days AMOXICILLIN 27981095836 No Longer Active Andrei Nichols MD Active AMOXICILLIN 500 MG TABS Take one tab by mouth 3 times daily, morning, afternoon and evening for 7 days. AMOXICILLIN 44810254879 No Longer Active Virginia Alejandra RN Active VICODIN 5-300 MG TABS one tab PO Q 6 hours PRN pain HYDROCODONE-ACETAMINOPHEN 63660365567 No Longer Active Virginia Alejandra RN Active FLAGYL 500 MG TABS four tabs PO one time METRONIDAZOLE 33570885259 No Longer Active Alondra Denton MD Active MELOXICAM 15 MG TABS 1 po q day for pain with food MELOXICAM 47765372020 No Longer Active Alondra Denton MD Active AMOXICILLIN 400 MG/5ML SUSR 5ml po TID x 10 days AMOXICILLIN 11425291566 No Longer Active Jani Marrero MD Active NIX CREME RINSE 1 % LIQD apply as directed carlotta, repeat at 7 days PERMETHRIN 53930226028 No Longer Active Corky Mckeon DO Active QVAR 40 MCG/ACT AERS one puff three times a day as needed BECLOMETHASONE DIPROPIONATE 59500638645 No Longer Active Andrei Nichols MD Active METHOCARBAMOL 500 MG TABS 1 to 2 qid prn back spasm METHOCARBAMOL 47897489842 No Longer Active Andrei Nichols MD Active VISTARIL 25 MG CAPS 1-2 tablets three times a day as needed HYDROXYZINE PAMOATE 86197077584 No Longer Active Andrei Nichols MD Active SEROQUEL 100 MG TABS 1/2 TABLET at hs QUETIAPINE FUMARATE 49230541797 No Longer Active Aicha Rizzo RN Active BACTRIM DS 800-160 MG TAB 1 tab by mouth twice daily TRIMETHOPRIM-SULFAMETHOXAZOLE 45853879506 No Longer Active Prisca Lockwood MD PhD Active CYCLOBENZAPRINE HCL 10 MG TABS TAKE 1/2 - 1 TAB EVERY 12 HOURS NEEDED 2010 CYCLOBENZAPRINE HCL 24459723052 No Longer Active Andrei Nichols MD Active CYCLOBENZAPRINE HCL 10 MG TABS TAKE 1/2 - 1 TAB EVERY 12 HOURS NEEDED 2010 CYCLOBENZAPRINE HCL 10 MG TABS 682796 CYCLOBENZAPRINE HCL Inactive SEROQUEL 100 MG TABS 1/2 TABLET at hs SEROQUEL 100 MG TABS 726746 QUETIAPINE FUMARATE Inactive VISTARIL 25 MG CAPS 1-2 tablets three times a day as needed VISTARIL 25 MG CAPS 427655 HYDROXYZINE PAMOATE Inactive METHOCARBAMOL 500 MG TABS 1 to 2 qid prn back spasm METHOCARBAMOL 500 MG TABS 327177 METHOCARBAMOL Inactive QVAR 40 MCG/ACT AERS one puff three times a day as needed QVAR 40 MCG/ACT AERS BECLOMETHASONE DIPROPIONATE Inactive NIX CREME RINSE 1 % LIQD apply as directed tonight, repeat at 7 days NIX CREME RINSE 1 % LIQD PERMETHRIN Inactive MELOXICAM 15 MG TABS 1 po q day for pain with food MELOXICAM 15 MG TABS 275015 MELOXICAM Inactive ALPRAZOLAM 1 MG TABS 1 tab tid ALPRAZOLAM 1 MG TABS 387837 ALPRAZOLAM Inactive LOMOTIL 2.5-0.025 MG TAB 1 to 2 four times a day as needed for diarrhea 05/28 LOMOTIL 2.5-0.025 MG TAB 5002231 DIPHENOXYLATE-ATROPINE Inactive PREDNISONE 20 MG TAB 2 tabs daily for 5 days, then 1 daily for 5 days PREDNISONE 20 MG TAB 022241 PREDNISONE Inactive TYLENOL WITH CODEINE #3 300-30 MG TABS 1 to 2 four times a day as needed for pain TYLENOL WITH CODEINE #3 300-30 MG TABS ACETAMINOPHEN-CODEINE Inactive PERMETHRIN 5 % CREA applyhead to toes tonight and then rinse off in 18 hours. repeat at 7 days if needed. PERMETHRIN 5 % CREA 687274 PERMETHRIN Inactive CLONAZEPAM 1 MG TABS take at bedtime CLONAZEPAM 1 MG TABS 589987 CLONAZEPAM Inactive FLEXERIL 10 MG TAB 1/2 to one tablet every 12 hours as needed FLEXERIL 10 MG TAB CYCLOBENZAPRINE HCL Inactive CELEXA 20 MG TABS 1and 1/2 tablets by mouth daily CELEXA 20 MG TABS 554447 CITALOPRAM HYDROBROMIDE Inactive AMOXICILLIN 500 MG TABS take one tab po tid x 10 days AMOXICILLIN 500 MG TABS 488493 AMOXICILLIN Inactive TRIAMCINOLONE ACETONIDE 0.1 % CREA apply three times daily prn rash TRIAMCINOLONE ACETONIDE 0.1 % CREA 7284244 TRIAMCINOLONE ACETONIDE Inactive SEROQUEL 100 MG TABS 1 tablet at HS SEROQUEL 100 MG TABS 666999 QUETIAPINE FUMARATE Inactive SEROQUEL 50 MG TABS 1 tablet at HS SEROQUEL 50 MG TABS 243765 QUETIAPINE FUMARATE Inactive HYDROCODONE-ACETAMINOPHEN 5-325 MG TABS 1/2 to 1 po q 4 hours prn pain 11/13 HYDROCODONE-ACETAMINOPHEN 5-325 MG TABS 792548 HYDROCODONE- ACETAMINOPHEN Inactive PREDNISONE 20 MG TABS 1 tablet by mouth twice daily for 2 days, then 1 daily for 2 days PREDNISONE 20 MG TABS 384248 PREDNISONE Inactive GUAIFENESIN-CODEINE 100-10 MG/5ML SYRP 1-2 tsp PO q6h PRN cough GUAIFENESIN-CODEINE 100-10 MG/5ML SYRP 367809 GUAIFENESIN-CODEINE Inactive GUAIFENESIN-CODEINE 100-10 MG/5ML SYRP 1 tsp PO q6h PRN cough GUAIFENESIN-CODEINE 100-10 MG/5ML SYRP 102903 GUAIFENESIN-CODEINE Inactive BACTROBAN 2 % OINTMENT Apply bid to affected area BACTROBAN 2 % OINTMENT 659552 MUPIROCIN Inactive PROMETHAZINE HCL 25 MG TABS take 1 po Q 8 hours prn nausea and vomiting 12/11 PROMETHAZINE HCL 25 MG TABS 126955 PROMETHAZINE HCL Inactive AMOXICILLIN 400 MG/5ML SUSR 6ml three times a day for 10 days AMOXICILLIN 400 MG/5ML SUSR 600939 AMOXICILLIN Inactive LAMISIL AT 1 % CREA apply bid to rash LAMISIL AT 1 % CREA 121203 TERBINAFINE HCL Inactive PROMETHAZINE HCL 25 MG TABS 1 four times a day as needed for nausea/vomiting PROMETHAZINE HCL 25 MG TABS 550565 PROMETHAZINE HCL Inactive GUAIFENESIN-CODEINE 100-10 MG/5ML SYRP 1 tsp PO q6h PRN cough GUAIFENESIN-CODEINE 100-10 MG/5ML SYRP 296202 GUAIFENESIN-CODEINE Inactive KEFLEX 500 MG CAP 1 po qid KEFLEX 500 MG CAP 740223 CEPHALEXIN Inactive GUAIFENESIN-CODEINE 100-10 MG/5ML SYRP 1 tsp PO q6h PRN cough GUAIFENESIN-CODEINE 100-10 MG/5ML SYRP 306161 GUAIFENESIN-CODEINE Inactive TYLENOL WITH CODEINE #3 300-30 MG TABS ONE TABLET FOUR TIMES A DAY NEEDED for pain or cough TYLENOL WITH CODEINE #3 300-30 MG TABS ACETAMINOPHEN-CODEINE Inactive STROMECTOL 3 MG TABS 6 pills by mouth x 1; repeat in 10 days 2012 STROMECTOL 3 MG TABS 869440 IVERMECTIN Inactive LOMOTIL 2.5-0.025 MG TAB 1 to 2 four times a day as needed for diarrhea 01/21 LOMOTIL 2.5-0.025 MG TAB 9093137 DIPHENOXYLATE-ATROPINE Inactive CELEXA 20 MG TABS Take 1.5 tablets daily CELEXA 20 MG TABS 308897 CITALOPRAM HYDROBROMIDE Inactive PERMETHRIN 5 % CREA apply neck to toes tonight and then rinse off in morning. repeat at 7 days PERMETHRIN 5 % CREA 963308 PERMETHRIN Inactive STROMECTOL 3 MG TABS 5 tablets by mouth one time on an empty stomach, may repeat in 2 weeks if needed STROMECTOL 3 MG TABS 697752 IVERMECTIN Inactive BACTRIM DS 800-160 MG TAB 1 tab by mouth twice daily BACTRIM DS 800-160 MG TAB 645398 TRIMETHOPRIM-SULFAMETHOXAZOLE Inactive SEROQUEL 200 MG TABS 1 tablet at bedtime. SEROQUEL 200 MG TABS 714453 QUETIAPINE FUMARATE Inactive CYCLOBENZAPRINE HCL 10 MG TABS 1 three times a day as needed for back spasm CYCLOBENZAPRINE HCL 10 MG TABS 684383 CYCLOBENZAPRINE HCL Inactive HYDROXYZINE HCL 10 MG TABS 1 to 2 three times a day as needed for itching HYDROXYZINE HCL 10 MG TABS 736859 HYDROXYZINE HCL Inactive TESSALON PERLES 100 MG CAP 1 tablet by mouth 3 times daily 01/20 TESSALON PERLES 100 MG CAP 744559 BENZONATATE Inactive CYCLOBENZAPRINE HCL 10 MG TABS 1/2 to 1 tablet by mouth three times daily as needed for muscle spasm/pain CYCLOBENZAPRINE HCL 10 MG TABS 027453 CYCLOBENZAPRINE HCL Inactive CYCLOBENZAPRINE HCL 10 MG TABS 1/2 to 1 tablet every 4 hours CYCLOBENZAPRINE HCL 10 MG TABS 803989 CYCLOBENZAPRINE HCL Inactive LATUDA 20 MG TABS 1 tab at at night with meal LATUDA 20 MG TABS LURASIDONE HCL Inactive IBUPROFEN 600 MG TAB 1 tablet three times a day as needed IBUPROFEN 600 MG TAB 747134 IBUPROFEN Inactive PROAIR HFA 108 (90 BASE) MCG/ACT AERS 2 puffs four times a day as needed 2011 PROAIR HFA 108 (90 BASE) MCG/ACT AERS ALBUTEROL SULFATE Inactive FETZIMA 40 MG ORAL [id number] FETZIMA 40 MG ORAL [id number] LEVOMILNACIPRAN HCL Inactive SEROQUEL 200 MG ORAL TABS Take 1 tablet at hs SEROQUEL 200 MG ORAL TABS 084913 QUETIAPINE FUMARATE Inactive AMOXICILLIN 500 MG TABS 2 tabs twice a day for 10 days AMOXICILLIN 500 MG TABS 090149 AMOXICILLIN Inactive PROMETHAZINE HCL 25 MG TABS 1 four times a day as needed for vomiting PROMETHAZINE HCL 25 MG TABS 477883 PROMETHAZINE HCL Inactive BACTRIM DS 800-160 MG TAB 1 tab by mouth twice daily BACTRIM DS 800-160 MG TAB 197333 TRIMETHOPRIM-SULFAMETHOXAZOLE Inactive AMOXICILLIN 400 MG/5ML SUSR 5ml po TID x 10 days AMOXICILLIN 400 MG/5ML SUSR 670601 AMOXICILLIN Inactive FLAGYL 500 MG TABS four tabs PO one time FLAGYL 500 MG TABS 608867 METRONIDAZOLE Inactive AMOXICILLIN 500 MG TABS Take one tab by mouth 3 times daily, morning, afternoon and evening for 7 days. AMOXICILLIN 500 MG TABS 077409 AMOXICILLIN Inactive AMOXICILLIN 500 MG CAPS 2 po BID x 10 days AMOXICILLIN 500 MG CAPS 022383 AMOXICILLIN Inactive AMOXICILLIN 500 MG CAPS 2 po BID x 10 days AMOXICILLIN 500 MG CAPS 030402 AMOXICILLIN Inactive PENICILLIN V POTASSIUM 500 MG TABS 1 TID PENICILLIN V POTASSIUM 500 MG TABS 248823 PENICILLIN V POTASSIUM Inactive BACTRIM DS 800-160 MG TABS 1 po BID x 10 days BACTRIM DS 800-160 MG TABS 716816 SULFAMETHOXAZOLE-TRIMETHOPRIM Inactive ZITHROMAX 250 MG TAB 2 po today, then 1 po q days 2-5 ZITHROMAX 250 MG TAB 6209830 AZITHROMYCIN Inactive TAMIFLU 75 MG CAPS 1 bid x 5 days TAMIFLU 75 MG CAPS 123547 OSELTAMIVIR PHOSPHATE Inactive AZITHROMYCIN 250 MG TABS 2 po qd x 1 day, then 1 po qd x 4 days AZITHROMYCIN 250 MG TABS 6077586 AZITHROMYCIN Inactive MEDROL (NISA) 4 MG TABS 6 tabs on day 1, 5 tabs on day 2, 4 tabs on day 3, 3 tabs on day 4, 2 tabs on day 5, 1 tab on day 6 MEDROL ( NISA) 4 MG TABS 008003 METHYLPREDNISOLONE Inactive SUPRAX 400 MG CAPS Take one tablet twice daily for 7 days SUPRAX 400 MG CAPS CEFIXIME Inactive AMITRIPTYLINE HCL 50 MG TAB 1 po q hs for sleep AMITRIPTYLINE HCL 50 MG TAB 798991 AMITRIPTYLINE HCL Inactive ZITHROMAX 250 MG TAB 2 po today, then 1 po q days 2-5 ZITHROMAX 250 MG TAB 1876819 AZITHROMYCIN Inactive Immunizations Vaccine Administration Date Value Standard Description Seasonal influenza vaccine, injectable, containing preservative, for > 3 years old (Afluria, FluLaval, Fluzone, Fluvirin, Fluarix, Agriflu(>=18 yo)) Fluzone (>3 yrs.) [UPI176] Influenza, seasonal, injectable pneumococcal immunization administered Pneumovax 23 [CVX33] pneumococcal polysaccharide vaccine, 23 valent Seasonal influenza vaccine, injectable, containing preservative, for > 3 years old (Afluria, FluLaval, Fluzone, Fluvirin, Fluarix, Agriflu(>=18 yo)) Fluzone (>3 yrs.) [OZL525] Influenza, seasonal, injectable Seasonal influenza vaccine, injectable, containing preservative, for > 3 years old (Afluria, FluLaval, Fluzone, Fluvirin, Fluarix, Agriflu(>=18 yo)) Fluzone (>3 yrs.) [CVH153] Influenza, seasonal, injectable hepatitis B vaccine #1 [...] Measured Encounters Code Encounter Date Provider Facility CPT-16081 Level 3 Est. Patient 11:04:11 ELECTRICAL REPAIRER Jani Marrero MD [facility] CPT-52932 Level 3 Est. Patient 12:02:27 ELECTRICAL REPAIRER Andrei Nichols MD [facility]-53607 Level 3 Est. Patient 12:47:17 ELECTRICAL REPAIRER Andrei Nichols MD [facility]-12365 Level 3 Est. Patient 14:51:20 ELECTRICAL REPAIRER Shikha Randolph [facility] CPT-04530 Level 3 Est. Patient 10:42:38 CDT Shikhaciro Randolph [facility] CPT-10163 Level 3 Est. Patient 18:20:39 CDT Prisca Lockwood MD PhD [facility]-23364 Level 3 Est. Patient 16:42:47 ELECTRICAL REPAIRER Rosalie Boyd [facility] [place] [facility] [place] Level 3 Est. Patient 14:34:36 ELECTRICAL REPAIRER Rosalie Boyd [facility]-89518 Level 4 Est. Patient 10:23:07 ELECTRICAL REPAIRER Andrei Nichols MD [facility]-66108 Level 3 Est. Patient 16:47:31 ELECTRICAL REPAIRER Andrei Nichols MD [facility]-12529 Level 3 Est. Patient 11:59:14 CDT Rosalie Boyd [facility] [place] [facility] [place]-37899 Level 3 Est. Patient 15:30:34 CDT Giovany URBINA [facility]-39959 Level 3 Est. Patient 11:03:03 CDT Rosalie Boyd [facility] [place] [facility] [place]-41433 Level 3 Est. Patient 11:08:07 CDT Rosalie Boyd [facility]-80708 Level 3 Est. Patient 14:07:32 CDT Andrei Nichols MD [facility]-78392 Level 3 Est. Patient 17:08:28 CDT Andrei Nichols MD [facility]-71736 Level 3 Est. Patient 13:10:13 CDT Jani Marrero MD [facility] CPT-51352 Level 3 Est. Patient 11:27:12 CDT Jani Marrero MD [facility] CPT-03370 Level 3 Est. Patient 13:44:42 CDT Andrei Nichols MD [facility] CPT-15722 Level 3 Est. Patient 12:34:57 ELECTRICAL REPAIRER Andrei Nichols MD [facility] CPT-86079 Level 3 Est. Patient 15:30:06 CDT Jani Marrero MD [facility] CPT-17210 Level 3 Est. Patient 21:59:00 CDT Corky Mckeon DO [facility] CPT-00804 Level 3 Est. Patient 17:12:49 CDT Andrei Nichols MD [facility] CPT-81764 Level 4 Est. Patient 12:27:45 ELECTRICAL REPAIRER Andrei Nichols MD [facility] CPT-96652 Level 3 Est. Patient 12:15:34 ELECTRICAL REPAIRER Andrei Nichols MD [facility] Procedures Code Procedure Name Date Entry Date Standard Description CPT-15501 Knee, left, 3V - XRAY USE ONLY 14:53:02 CDT CPT-OV Office Visit 11:36:40 CDT CPT-46580 Administration 2+ single or combination vaccines inc oral 07:50:30 CDT CPT-70475 Administration single or combination vaccine inc oral 07 :50:30 CDT CPT-10886 Pneumovax 07:50:30 CDT CPT-96737 Influenza split virus > age 3 07:50:30 CDT CPT-OV Office Visit 11:49:10 ELECTRICAL REPAIRER CPT-95013 Nexplanon Removal with Reinsertion 14:02:06 ELECTRICAL REPAIRER CPT-J7307 Nexplanon (Implant) 14:02:06 ELECTRICAL REPAIRER CPT-OV Office Visit 14:02:06 ELECTRICAL REPAIRER CPT-OV Office Visit 11:58:04 ELECTRICAL REPAIRER CPT-77486 Administration single or combination vaccine inc oral 11 :31:07 CDT [id number] Influenza split virus > age 3 11:31:07 CDT [id number] Administration single or combination vaccine inc oral 10 :34:13 CDT [id number] Influenza split virus > age 3 10:34:13 CDT
--- OUTSIDE RECORDS SUMMARY | 2017-01-02 18:05 | XMS REPORT | Clinical Summary ---
Author Author Admin, E Organization [facility] Address Unknown Phone Unavailable Allergies, Adverse [...] Sinusitis, frontal, acute 461.1 Resolved Shikha Yokum SAW SETTER Acute frontal sinusitis Pharyngitis 462 Resolved Shikha Yokum SAW SETTER Acute pharyngitis Scabies 133.0 Resolved Shikha Yokum SAW SETTER Scabies Folliculitis 704.8 Resolved Shikha Yokum SAW SETTER Other specified diseases of hair and hair [...] Kirk PA ECZEMA ICD-692.9 Inactive Shikha Ageesiva SAW SETTER OTITIS MEDIA ICD-382.9 Inactive Ary Kirk PA 09/16 PHARYNGITIS ICD-462 Inactive Andrei Nichols MD UNSPECIFIED DISORDER TEETH&SUPPORTING STRUCTURES ICD-525.9 12/29 Inactive Shikha Randolph SAW SETTER PHARYNGITIS-ACUTE ICD-462 Inactive Rosalie Boyd SAW SETTER DIARRHEA ICD-787.91 Inactive Andrei Nichols MD SHOULDER PAIN ICD-719.41 Inactive Shikha Randolph SAW SETTER NAUSEA AND VOMITING ICD-787.01 Inactive Andrei Nichols [...] PhD Dental caries ICD-521.00 Inactive Shikha Yokum SAW SETTER Tooth pain ICD-525.9 Inactive Prisca Lockwood MD PhD Head lice ICD-132.0 Inactive Prisca Lockwood MD PhD Upper respiratory infection ICD-465.9 Inactive Prisca Lockwood MD PhD Sinusitis, frontal, acute ICD-461.1 Inactive Shikha Yokum SAW SETTER Pharyngitis ICD-462 Inactive Shikha Yokum SAW SETTER 2013 Scabies ICD-133.0 Inactive Shikha Yokum SAW SETTER 12/29 Folliculitis ICD-704.8 Inactive Shikha Yokum SAW SETTER Cough ICD-786.2 Inactive Andrei Nichols MD SINUSITIS, ACUTE ICD-461.9 Inactive Jani Marrero MD Medication List Medication Instructions Start Date Stop Date Generic Name NDC Status Provider Patient Instruction MELOXICAM 15 MG TABS 1 daily for knee pain MELOXICAM [id number] Active Renetta Ryan APRN Active CYCLOBENZAPRINE HCL 10 MG TABS 1 three times a day as needed for muscle spasm CYCLOBENZAPRINE HCL 61772154935 Active Renetta Ryan APRN Active BUSPIRONE HCL 10 MG ORAL TABS 2 TABS PO BID BUSPIRONE HCL 17423721217 Active Renetta Ryan APRN Active AMITRIPTYLINE HCL 75 MG ORAL TABS 1 TAB Q HS AMITRIPTYLINE HCL 78716382607 Active Renetta Ryan APRN Active PROAIR HFA 108 (90 BASE) MCG/ACT AERS 2 puffs four times a day as needed 2015 ALBUTEROL SULFATE 74999611710 No Longer Active Renetta Ryan APRN Active KLONOPIN 1 MG TABS 1 tablet TID CLONAZEPAM 47520580689 No Longer Active Renetta Ryan APRN Active ZITHROMAX 250 MG TAB 2 po today, then 1 po q days 2-5 AZITHROMYCIN 84245668203 No Longer Active Jani Marrero MD Active IBUPROFEN 800 MG TABS 1 tab PO TID IBUPROFEN 90053969988 Active Jani Marrero MD Active WELLBUTRIN SR 100 MG ORAL [id number] 1 TAB PO DAILY BUPROPION HCL 43049481765 Active Jani Marrero MD Active AMITRIPTYLINE HCL 50 MG TAB 1 po q hs for sleep AMITRIPTYLINE HCL 83348660337 No Longer Active Jani Marrero MD Active PROMETHAZINE HCL 25 MG TABS 1 four times a day as needed for vomiting PROMETHAZINE HCL 28973897386 No Longer Active Jani Marrero MD Active AMOXICILLIN 500 MG TABS 2 tabs twice a day for 10 days AMOXICILLIN 58478191092 No Longer Active Jani Marrero MD Active SEROQUEL 200 MG ORAL TABS Take 1 tablet at hs QUETIAPINE FUMARATE 63741158708 No Longer Active Jani Marrero MD Active FETZIMA 40 MG ORAL [id number] LEVOMILNACIPRAN HCL 10770185006 No Longer Active Jani Marrero MD Active PROAIR HFA 108 (90 BASE) MCG/ACT AERS 2 puffs four times a day as needed 2011 ALBUTEROL SULFATE 51214351174 No Longer Active Alondra Denton MD Active IBUPROFEN 600 MG TAB 1 tablet three times a day as needed IBUPROFEN 39953590583 No Longer Active Alondra Denton MD Active LATUDA 20 MG TABS 1 tab at at night with meal LURASIDONE HCL 72351475923 No Longer Active Alondra Denton MD Active CYCLOBENZAPRINE HCL 10 MG TABS 1/2 to 1 tablet every 4 hours CYCLOBENZAPRINE HCL 90332050993 No Longer Active Alondra Denton MD Active CYCLOBENZAPRINE HCL 10 MG TABS 1/2 to 1 tablet by mouth three times daily as needed for muscle spasm/pain CYCLOBENZAPRINE HCL 04510673723 No Longer Active Alondra Denton MD Active SUPRAX 400 MG CAPS Take one tablet twice daily for 7 days CEFIXIME 55582120601 No Longer Active Shikha Yokum SAW SETTER Active TESSALON PERLES 100 MG CAP 1 tablet by mouth 3 times daily 01/20 BENZONATATE 71142939299 No Longer Active Shikha Yokum SAW SETTER Active HYDROXYZINE HCL 10 MG TABS 1 to 2 three times a day as needed for itching HYDROXYZINE HCL 68797813628 No Longer Active Shikha Yokum SAW SETTER Active CYCLOBENZAPRINE HCL 10 MG TABS 1 three times a day as needed for back spasm CYCLOBENZAPRINE HCL 53442369814 No Longer Active Shikha Yokum SAW SETTER Active SEROQUEL 200 MG TABS 1 tablet at bedtime. QUETIAPINE FUMARATE 34567003393 No Longer Active Shikha Yokum SAW SETTER Active BACTRIM DS 800-160 MG TAB 1 tab by mouth twice daily TRIMETHOPRIM-SULFAMETHOXAZOLE 53314753225 No Longer Active Shikha Yokum SAW SETTER Active STROMECTOL 3 MG TABS 5 tablets by mouth one time on an empty stomach, may repeat in 2 weeks if needed IVERMECTIN 63697607518 No Longer Active Shikha Yokum SAW SETTER Active PERMETHRIN 5 % CREA apply neck to toes tonight and then rinse off in morning. repeat at 7 days PERMETHRIN 42213947417 No Longer Active Andrei Nichols MD Active MEDROL (NISA) 4 MG TABS 6 tabs on day 1, 5 tabs on day 2, 4 tabs on day 3, 3 tabs on day 4, 2 tabs on day 5, 1 tab on day 6 METHYLPREDNISOLONE 40388965003 No Longer Active Prisca Lockwood MD PhD Active AZITHROMYCIN 250 MG TABS 2 po qd x 1 day, then 1 po qd x 4 days AZITHROMYCIN 70347824958 No Longer Active Prisca Lockwood MD PhD Active CELEXA 20 MG TABS Take 1.5 tablets daily CITALOPRAM HYDROBROMIDE 77141928553 No Longer Active Prisca Lockwood MD PhD Active LOMOTIL 2.5-0.025 MG TAB 1 to 2 four times a day as needed for diarrhea 01/21 DIPHENOXYLATE-ATROPINE 40959716892 No Longer Active Pricsa Lockwood MD PhD Active TAMIFLU 75 MG CAPS 1 bid x 5 days OSELTAMIVIR PHOSPHATE 71680742127 No Longer Active Rosalie Boyd APRN Active ZITHROMAX 250 MG TAB 2 po today, then 1 po q days 2-5 AZITHROMYCIN 56609312352 No Longer Active Rosalie Boyd APRN Active STROMECTOL 3 MG TABS 6 pills by mouth x 1; repeat in 10 days 2012 IVERMECTIN 96296092217 No Longer Active Rosalie Boyd APRN Active TYLENOL WITH CODEINE #3 300-30 MG TABS ONE TABLET FOUR TIMES A DAY NEEDED for pain or cough ACETAMINOPHEN-CODEINE 46385805706 No Longer Active Rosalie Boyd APRN Active GUAIFENESIN-CODEINE 100-10 MG/5ML SYRP 1 tsp PO q6h PRN cough GUAIFENESIN-CODEINE 68944183095 No Longer Active Rosalie Boyd APRN Active KEFLEX 500 MG CAP 1 po qid CEPHALEXIN 68215979952 No Longer Active Rosalie Boyd APRN Active GUAIFENESIN-CODEINE 100-10 MG/5ML SYRP 1 tsp PO q6h PRN cough GUAIFENESIN-CODEINE 06044348728 No Longer Active Rosalie Boyd APRN Active PROMETHAZINE HCL 25 MG TABS 1 four times a day as needed for nausea/vomiting PROMETHAZINE HCL 08666693820 No Longer Active Rosalie Boyd APRN Active LAMISIL AT 1 % CREA apply bid to rash TERBINAFINE HCL 29765544980 No Longer Active Andrei Nichols MD Active AMOXICILLIN 400 MG/5ML SUSR 6ml three times a day for 10 days AMOXICILLIN 83945774535 No Longer Active Andrei Nichols MD Active PROMETHAZINE HCL 25 MG TABS take 1 po Q 8 hours prn nausea and vomiting 12/11 PROMETHAZINE HCL 52623267953 No Longer Active Andrei Nichols MD Active BACTROBAN 2 % OINTMENT Apply bid to affected area MUPIROCIN 00827335597 No Longer Active Andrei Nichols MD Active GUAIFENESIN-CODEINE 100-10 MG/5ML SYRP 1 tsp PO q6h PRN cough GUAIFENESIN-CODEINE 19845183824 No Longer Active Andrei Nichols MD Active BACTRIM DS 800-160 MG TABS 1 po BID x 10 days SULFAMETHOXAZOLE-TRIMETHOPRIM 12242941932 No Longer Active Rosalie Boyd APRN Active GUAIFENESIN-CODEINE 100-10 MG/5ML SYRP 1-2 tsp PO q6h PRN cough GUAIFENESIN-CODEINE 48475034782 No Longer Active Giovany URBINA Active PREDNISONE 20 MG TABS 1 tablet by mouth twice daily for 2 days, then 1 daily for 2 days PREDNISONE 05326143437 No Longer Active Giovany URBINA Active HYDROCODONE-ACETAMINOPHEN 5-325 MG TABS 1/2 to 1 po q 4 hours prn pain 11/13 HYDROCODONE-ACETAMINOPHEN 29285880039 No Longer Active Rosalie Boyd SAW SETTER Active PENICILLIN V POTASSIUM 500 MG TABS 1 TID PENICILLIN V POTASSIUM 61441222343 No Longer Active Andrei Nichols MD Active SEROQUEL 50 MG TABS 1 tablet at HS QUETIAPINE FUMARATE 11579537958 No Longer Active Andrei Nichols MD Active SEROQUEL 100 MG TABS 1 tablet at HS QUETIAPINE FUMARATE 23887511307 No Longer Active Andrei Nichols MD Active TRIAMCINOLONE ACETONIDE 0.1 % CREA apply three times daily prn rash TRIAMCINOLONE ACETONIDE 73349288237 No Longer Active Andrei Nicohls MD Active AMOXICILLIN 500 MG TABS take one tab po tid x 10 days AMOXICILLIN 55374683241 No Longer Active Andrei Nichols MD Active CELEXA 20 MG TABS 1and 1/2 tablets by mouth daily CITALOPRAM HYDROBROMIDE 05328797169 No Longer Active Ary Pool PA Active FLEXERIL 10 MG TAB 1/2 to one tablet every 12 hours as needed CYCLOBENZAPRINE HCL 72872605055 No Longer Active Ary Pool PA Active CLONAZEPAM 1 MG TABS take at bedtime CLONAZEPAM 83857475795 No Longer Active Ayr Pool PA Active PERMETHRIN 5 % CREA applyhead to toes tonight and then rinse off in 18 hours. repeat at 7 days if needed. PERMETHRIN 02303783079 No Longer Active Ary Pool PA Active AMOXICILLIN 500 MG CAPS 2 po BID x 10 days AMOXICILLIN 69853652587 No Longer Active Andrei Nichols MD Active TYLENOL WITH CODEINE #3 300-30 MG TABS 1 to 2 four times a day as needed for pain ACETAMINOPHEN-CODEINE 02651898944 No Longer Active Reta Hampton Active PREDNISONE 20 MG TAB 2 tabs daily for 5 days, then 1 daily for 5 days PREDNISONE 91584839241 No Longer Active Reta Hampton Active LOMOTIL 2.5-0.025 MG TAB 1 to 2 four times a day as needed for diarrhea 05/28 DIPHENOXYLATE-ATROPINE 87364077796 No Longer Active Reta Hampton Active ALPRAZOLAM 1 MG TABS 1 tab tid ALPRAZOLAM 71919976114 No Longer Active Reta Hampton Active AMOXICILLIN 500 MG CAPS 2 po BID x 10 days AMOXICILLIN 69595417882 No Longer Active Andrei Nichols MD Active AMOXICILLIN 500 MG TABS Take one tab by mouth 3 times daily, morning, afternoon and evening for 7 days. AMOXICILLIN 26410594629 No Longer Active Virginia Alejandra RN Active VICODIN 5-300 MG TABS one tab PO Q 6 hours PRN pain HYDROCODONE-ACETAMINOPHEN 43382414951 No Longer Active Virginai Alejandra RN Active FLAGYL 500 MG TABS four tabs PO one time METRONIDAZOLE 88829271442 No Longer Active Alondra Denton MD Active MELOXICAM 15 MG TABS 1 po q day for pain with food MELOXICAM 27602077442 No Longer Active Alondra Denton MD Active AMOXICILLIN 400 MG/5ML SUSR 5ml po TID x 10 days AMOXICILLIN 22220489302 No Longer Active Jani Marrero MD Active NIX CREME RINSE 1 % LIQD apply as directed tonight, repeat at 7 days PERMETHRIN 32889623598 No Longer Active Corky Mckeon DO Active QVAR 40 MCG/ACT AERS one puff three times a day as needed BECLOMETHASONE DIPROPIONATE 26651485621 No Longer Active Andrei Nichols MD Active METHOCARBAMOL 500 MG TABS 1 to 2 qid prn back spasm METHOCARBAMOL 18959170541 No Longer Active Andrei Nichols MD Active VISTARIL 25 MG CAPS 1-2 tablets three times a day as needed HYDROXYZINE PAMOATE 34464188346 No Longer Active Andrei Nichols MD Active SEROQUEL 100 MG TABS 1/2 TABLET at hs QUETIAPINE FUMARATE 89821099445 No Longer Active Aicha Rizzo RN Active BACTRIM DS 800-160 MG TAB 1 tab by mouth twice daily TRIMETHOPRIM-SULFAMETHOXAZOLE 64272138355 No Longer Active Prisca Lockwood MD PhD Active CYCLOBENZAPRINE HCL 10 MG TABS TAKE 1/2 - 1 TAB EVERY 12 HOURS NEEDED 2010 CYCLOBENZAPRINE HCL 09365157047 No Longer Active Andrei Nichols MD Active CYCLOBENZAPRINE HCL 10 MG TABS TAKE 1/2 - 1 TAB EVERY 12 HOURS NEEDED 2010 CYCLOBENZAPRINE HCL 10 MG TABS 598762 CYCLOBENZAPRINE HCL Inactive SEROQUEL 100 MG TABS 1/2 TABLET at hs SEROQUEL 100 MG TABS 124632 QUETIAPINE FUMARATE Inactive VISTARIL 25 MG CAPS 1-2 tablets three times a day as needed VISTARIL 25 MG CAPS 066296 HYDROXYZINE PAMOATE Inactive METHOCARBAMOL 500 MG TABS 1 to 2 qid prn back spasm METHOCARBAMOL 500 MG TABS 577699 METHOCARBAMOL Inactive QVAR 40 MCG/ACT AERS one puff three times a day as needed QVAR 40 MCG/ACT AERS BECLOMETHASONE DIPROPIONATE Inactive NIX CREME RINSE 1 % LIQD apply as directed carlotta, repeat at 7 days NIX CREME RINSE 1 % LIQD PERMETHRIN Inactive MELOXICAM 15 MG TABS 1 po q day for pain with food MELOXICAM 15 MG TABS 379385 MELOXICAM Inactive ALPRAZOLAM 1 MG TABS 1 tab tid ALPRAZOLAM 1 MG TABS 527174 ALPRAZOLAM Inactive LOMOTIL 2.5-0.025 MG TAB 1 to 2 four times a day as needed for diarrhea 05/28 LOMOTIL 2.5-0.025 MG TAB 0983264 DIPHENOXYLATE-ATROPINE Inactive PREDNISONE 20 MG TAB 2 tabs daily for 5 days, then 1 daily for 5 days PREDNISONE 20 MG TAB 180220 PREDNISONE Inactive TYLENOL WITH CODEINE #3 300-30 MG TABS 1 to 2 four times a day as needed for pain TYLENOL WITH CODEINE #3 300-30 MG TABS ACETAMINOPHEN-CODEINE Inactive PERMETHRIN 5 % CREA applyhead to toes tonight and then rinse off in 18 hours. repeat at 7 days if needed. PERMETHRIN 5 % CREA 193191 PERMETHRIN Inactive CLONAZEPAM 1 MG TABS take at bedtime CLONAZEPAM 1 MG TABS 716945 CLONAZEPAM Inactive FLEXERIL 10 MG TAB 1/2 to one tablet every 12 hours as needed FLEXERIL 10 MG TAB CYCLOBENZAPRINE HCL Inactive CELEXA 20 MG TABS 1and 1/2 tablets by mouth daily CELEXA 20 MG TABS 434377 CITALOPRAM HYDROBROMIDE Inactive AMOXICILLIN 500 MG TABS take one tab po tid x 10 days AMOXICILLIN 500 MG TABS 909079 AMOXICILLIN Inactive TRIAMCINOLONE ACETONIDE 0.1 % CREA apply three times daily prn rash TRIAMCINOLONE ACETONIDE 0.1 % CREA 5732506 TRIAMCINOLONE ACETONIDE Inactive SEROQUEL 100 MG TABS 1 tablet at HS SEROQUEL 100 MG TABS 157090 QUETIAPINE FUMARATE Inactive SEROQUEL 50 MG TABS 1 tablet at HS SEROQUEL 50 MG TABS 840993 QUETIAPINE FUMARATE Inactive HYDROCODONE-ACETAMINOPHEN 5-325 MG TABS 1/2 to 1 po q 4 hours prn pain 11/13 HYDROCODONE-ACETAMINOPHEN 5-325 MG TABS 110829 HYDROCODONE- ACETAMINOPHEN Inactive PREDNISONE 20 MG TABS 1 tablet by mouth twice daily for 2 days, then 1 daily for 2 days PREDNISONE 20 MG TABS 701382 PREDNISONE Inactive GUAIFENESIN-CODEINE 100-10 MG/5ML SYRP 1-2 tsp PO q6h PRN cough GUAIFENESIN-CODEINE 100-10 MG/5ML SYRP 727097 GUAIFENESIN-CODEINE Inactive GUAIFENESIN-CODEINE 100-10 MG/5ML SYRP 1 tsp PO q6h PRN cough GUAIFENESIN-CODEINE 100-10 MG/5ML SYRP 072924 GUAIFENESIN-CODEINE Inactive BACTROBAN 2 % OINTMENT Apply bid to affected area BACTROBAN 2 % OINTMENT 071139 MUPIROCIN Inactive PROMETHAZINE HCL 25 MG TABS take 1 po Q 8 hours prn nausea and vomiting 12/11 PROMETHAZINE HCL 25 MG TABS 838036 PROMETHAZINE HCL Inactive AMOXICILLIN 400 MG/5ML SUSR 6ml three times a day for 10 days AMOXICILLIN 400 MG/5ML SUSR 454408 AMOXICILLIN Inactive LAMISIL AT 1 % CREA apply bid to rash LAMISIL AT 1 % CREA 631260 TERBINAFINE HCL Inactive PROMETHAZINE HCL 25 MG TABS 1 four times a day as needed for nausea/vomiting PROMETHAZINE HCL 25 MG TABS 875730 PROMETHAZINE HCL Inactive GUAIFENESIN-CODEINE 100-10 MG/5ML SYRP 1 tsp PO q6h PRN cough GUAIFENESIN-CODEINE 100-10 MG/5ML SYRP 688213 GUAIFENESIN-CODEINE Inactive KEFLEX 500 MG CAP 1 po qid KEFLEX 500 MG CAP 777219 CEPHALEXIN Inactive GUAIFENESIN-CODEINE 100-10 MG/5ML SYRP 1 tsp PO q6h PRN cough GUAIFENESIN-CODEINE 100-10 MG/5ML SYRP 738575 GUAIFENESIN-CODEINE Inactive TYLENOL WITH CODEINE #3 300-30 MG TABS ONE TABLET FOUR TIMES A DAY NEEDED for pain or cough TYLENOL WITH CODEINE #3 300-30 MG TABS ACETAMINOPHEN-CODEINE Inactive STROMECTOL 3 MG TABS 6 pills by mouth x 1; repeat in 10 days 2012 STROMECTOL 3 MG TABS 657300 IVERMECTIN Inactive LOMOTIL 2.5-0.025 MG TAB 1 to 2 four times a day as needed for diarrhea 01/21 LOMOTIL 2.5-0.025 MG TAB 8808508 DIPHENOXYLATE-ATROPINE Inactive CELEXA 20 MG TABS Take 1.5 tablets daily CELEXA 20 MG TABS 408274 CITALOPRAM HYDROBROMIDE Inactive PERMETHRIN 5 % CREA apply neck to toes tonight and then rinse off in morning. repeat at 7 days PERMETHRIN 5 % CREA 784211 PERMETHRIN Inactive STROMECTOL 3 MG TABS 5 tablets by mouth one time on an empty stomach, may repeat in 2 weeks if needed STROMECTOL 3 MG TABS 143134 IVERMECTIN Inactive BACTRIM DS 800-160 MG TAB 1 tab by mouth twice daily BACTRIM DS 800-160 MG TAB 391026 TRIMETHOPRIM-SULFAMETHOXAZOLE Inactive SEROQUEL 200 MG TABS 1 tablet at bedtime. SEROQUEL 200 MG TABS 521146 QUETIAPINE FUMARATE Inactive CYCLOBENZAPRINE HCL 10 MG TABS 1 three times a day as needed for back spasm CYCLOBENZAPRINE HCL 10 MG TABS 113422 CYCLOBENZAPRINE HCL Inactive HYDROXYZINE HCL 10 MG TABS 1 to 2 three times a day as needed for itching HYDROXYZINE HCL 10 MG TABS 443960 HYDROXYZINE HCL Inactive TESSALON PERLES 100 MG CAP 1 tablet by mouth 3 times daily 01/20 TESSALON PERLES 100 MG CAP 537695 BENZONATATE Inactive CYCLOBENZAPRINE HCL 10 MG TABS 1/2 to 1 tablet by mouth three times daily as needed for muscle spasm/pain CYCLOBENZAPRINE HCL 10 MG TABS 240347 CYCLOBENZAPRINE HCL Inactive CYCLOBENZAPRINE HCL 10 MG TABS 1/2 to 1 tablet every 4 hours CYCLOBENZAPRINE HCL 10 MG TABS 979672 CYCLOBENZAPRINE HCL Inactive LATUDA 20 MG TABS 1 tab at at night with meal LATUDA 20 MG TABS LURASIDONE HCL Inactive IBUPROFEN 600 MG TAB 1 tablet three times a day as needed IBUPROFEN 600 MG TAB 722089 IBUPROFEN Inactive PROAIR HFA 108 (90 BASE) MCG/ACT AERS 2 puffs four times a day as needed 2011 PROAIR HFA 108 (90 BASE) MCG/ACT AERS ALBUTEROL SULFATE Inactive FETZIMA 40 MG ORAL [id number] FETZIMA 40 MG ORAL [id number] LEVOMILNACIPRAN HCL Inactive SEROQUEL 200 MG ORAL TABS Take 1 tablet at hs SEROQUEL 200 MG ORAL TABS 234349 QUETIAPINE FUMARATE Inactive AMOXICILLIN 500 MG TABS 2 tabs twice a day for 10 days AMOXICILLIN 500 MG TABS 364806 AMOXICILLIN Inactive PROMETHAZINE HCL 25 MG TABS 1 four times a day as needed for vomiting PROMETHAZINE HCL 25 MG TABS 499711 PROMETHAZINE HCL Inactive KLONOPIN 1 MG TABS 1 tablet TID KLONOPIN 1 MG TABS 052975 CLONAZEPAM Inactive PROAIR HFA 108 (90 BASE) MCG/ACT AERS 2 puffs four times a day as needed 2015 PROAIR HFA 108 (90 BASE) MCG/ACT AERS ALBUTEROL SULFATE Inactive BACTRIM DS 800-160 MG TAB 1 tab by mouth twice daily BACTRIM DS 800-160 MG TAB 967536 TRIMETHOPRIM-SULFAMETHOXAZOLE Inactive AMOXICILLIN 400 MG/5ML SUSR 5ml po TID x 10 days AMOXICILLIN 400 MG/5ML SUSR 850945 AMOXICILLIN Inactive FLAGYL 500 MG TABS four tabs PO one time FLAGYL 500 MG TABS 043118 METRONIDAZOLE Inactive AMOXICILLIN 500 MG TABS Take one tab by mouth 3 times daily, morning, afternoon and evening for 7 days. AMOXICILLIN 500 MG TABS 517520 AMOXICILLIN Inactive AMOXICILLIN 500 MG CAPS 2 po BID x 10 days AMOXICILLIN 500 MG CAPS 639706 AMOXICILLIN Inactive AMOXICILLIN 500 MG CAPS 2 po BID x 10 days AMOXICILLIN 500 MG CAPS 627929 AMOXICILLIN Inactive PENICILLIN V POTASSIUM 500 MG TABS 1 TID PENICILLIN V POTASSIUM 500 MG TABS 394157 PENICILLIN V POTASSIUM Inactive BACTRIM DS 800-160 MG TABS 1 po BID x 10 days BACTRIM DS 800-160 MG TABS 156063 SULFAMETHOXAZOLE-TRIMETHOPRIM Inactive ZITHROMAX 250 MG TAB 2 po today, then 1 po q days 2-5 ZITHROMAX 250 MG TAB 4461351 AZITHROMYCIN Inactive TAMIFLU 75 MG CAPS 1 bid x 5 days TAMIFLU 75 MG CAPS 844860 OSELTAMIVIR PHOSPHATE Inactive AZITHROMYCIN 250 MG TABS 2 po qd x 1 day, then 1 po qd x 4 days AZITHROMYCIN 250 MG TABS 9174266 AZITHROMYCIN Inactive MEDROL (NISA) 4 MG TABS 6 tabs on day 1, 5 tabs on day 2, 4 tabs on day 3, 3 tabs on day 4, 2 tabs on day 5, 1 tab on day 6 MEDROL ( NISA) 4 MG TABS 197955 METHYLPREDNISOLONE Inactive SUPRAX 400 MG CAPS Take one tablet twice daily for 7 days SUPRAX 400 MG CAPS CEFIXIME Inactive AMITRIPTYLINE HCL 50 MG TAB 1 po q hs for sleep AMITRIPTYLINE HCL 50 MG TAB 448358 AMITRIPTYLINE HCL Inactive ZITHROMAX 250 MG TAB 2 po today, then 1 po q days 2-5 ZITHROMAX 250 MG TAB 0989009 AZITHROMYCIN Inactive Immunizations Vaccine Administration Date Value Standard Description Seasonal influenza vaccine, injectable, containing preservative, for > 3 years old (Afluria, FluLaval, Fluzone, Fluvirin, Fluarix, Agriflu(>=18 yo)) Fluzone (>3 yrs.) [[id number]] Influenza, seasonal, injectable pneumococcal immunization administered Pneumovax 23 [CVX33] pneumococcal polysaccharide vaccine, 23 valent Seasonal influenza vaccine, injectable, containing preservative, for > 3 years old (Afluria, FluLaval, Fluzone, Fluvirin, Fluarix, Agriflu(>=18 yo)) Fluzone (>3 yrs.) [[id number]] Influenza, seasonal, injectable Seasonal influenza vaccine, injectable, containing preservative, for > 3 years old (Afluria, FluLaval, Fluzone, Fluvirin, Fluarix, Agriflu(>=18 yo)) Fluzone (>3 yrs.) [[id number]] Influenza, seasonal, injectable hepatitis B vaccine #1 [...] Measured Encounters Code Encounter Date Provider Facility CPT-20052 Level 3 Est. Patient 16:47:47 CDT Renetta Ryan [facility] CPT-28430 Level 3 Est. Patient 11:04:11 [employer] Jani Marrero MD [facility] CPT-76485 Level 3 Est. Patient 12:02:27 [employer] Andrei Nichols MD [facility] CPT-79971 Level 3 Est. Patient 12:47:17 [employer] Andrei Nichols MD [facility] CPT-39906 Level 3 Est. Patient 14:51:20 [employer] Shikha Randolph [facility] CPT-39320 Level 3 Est. Patient 10:42:38 CDT Shikha Randolph [facility] CPT-21887 Level 3 Est. Patient 18:20:39 CDT Prisca Lockwood MD PhD [facility]-76851 Level 3 Est. Patient 16:42:47 [employer] Rosalie Boyd [facility] CPT-30179 Level 3 Est. Patient 14:34:36 [employer] Rosalie Boyd [facility] CPT-32852 Level 4 Est. Patient 10:23:07 [employer] Andrei Nichols MD [facility]-63029 Level 3 Est. Patient 16:47:31 [employer] Andrei Nichols MD [facility]-81653 Level 3 Est. Patient 11:59:14 CDT Rosalie Body [facility] [place]-59011 Level 3 Est. Patient 15:30:34 CDT Giovany URBINA [facility] CPT-30028 Level 3 Est. Patient 11:03:03 CDT Rosalie Boyd [facility] CPT-47431 Level 3 Est. Patient 11:08:07 CDT Rosalie Boyd [facility] CPT-21420 Level 3 Est. Patient 14:07:32 CDT Andrei Nichols MD [facility]-42979 Level 3 Est. Patient 17:08:28 CDT Andrei Nichols MD [facility]-30793 Level 3 Est. Patient 13:10:13 CDT Jani Marrero MD [facility]-04259 Level 3 Est. Patient 11:27:12 CDT Jani Marrero MD [facility]-43486 Level 3 Est. Patient 13:44:42 CDT Andrei Nichols MD [facility]-18364 Level 3 Est. Patient 12:34:57 [employer] Andrei Nichols MD [facility] CPT-65632 Level 3 Est. Patient 15:30:06 CDT Jani Marrero MD [facility] CPT-64261 Level 3 Est. Patient 21:59:00 CDT Corky Mckeon [facility] CPT-86881 Level 3 Est. Patient 17:12:49 CDT Andrei Nichols MD [facility] CPT-06435 Level 4 Est. Patient 12:27:45 [employer] Andrei Nichols MD [facility] CPT-18212 Level 3 Est. Patient 12:15:34 [employer] Andrei Nichols MD [facility] Procedures Code Procedure Name Date Entry Date Standard Description CPT-91913 Knee, left, 3V - XRAY USE ONLY 14:53:02 CDT CPT-OV Office Visit 11:36:40 CDT CPT-26776 Administration 2+ single or combination vaccines inc oral 07:50:30 CDT CPT-43454 Administration single or combination vaccine inc oral 07 :50:30 CDT CPT-52718 Pneumovax 07:50:30 CDT CPT-22784 Influenza split virus > age 3 07:50:30 CDT CPT-OV Office Visit 11:49:10 [employer] CPT-60032 Nexplanon Removal with Reinsertion 14:02:06 [employer] CPT-J7307 Nexplanon (Implant) 14:02:06 [employer] CPT-OV Office Visit 14:02:06 [employer] CPT-OV Office Visit 11:58:04 [employer] CPT-13311 Administration single or combination vaccine inc oral 11 :31:07 CDT CPT-91801 Influenza split virus > age 3 11:31:07 CDT CPT-05813 Administration single or combination vaccine inc oral 10 :34:13 CDT CPT-66684 Influenza split virus > age 3 10:34:13 CDT
--- OUTSIDE RECORDS SUMMARY | 2017-01-02 18:07 | XMS REPORT ---
Author Jay Jay [facility] eClinical[employer] Address Unknown Phone Unavailable Care Team Providers Care [employer] Plant Supervisor Name Role Phone Jay Jay Flores CP Unavailable Allergies, Adverse Reactions, Alerts Substance Reaction Event Type N.K.D.A. Info Not Available Non Drug Allergy Problems Problem Type Condition Code Onset Dates Condition Status Assessment Itching L29.9 Active Problem Screening for diabetes mellitus Z13.1 Active Assessment Bug bites W57.XXXA Active Problem Well woman exam (no gynecological exam) Z00.00 Active Problem Methamphetamine abuse F15.10 Active Problem Asthma J45.909 Active Problem Injury of left hand S69.92XA Active Problem Implantable subdermal contraceptive surveillance Z30.49 Active Problem Tobacco abuse Z72.0 Active Problem Screening examination for sexually transmitted disease Z11.3 Active Medications Medication Code System Code Instructions Start Date End Date Status Dosage Claritin [facility] [address]-24 10 mg Orally Once a day August 13, 2015 1 tablet Gabapentin [facility] [address]-28 300 MG Orally Three times a day June 30, 2015 1 capsule Quetiapine Fumarate [facility] [address]-88 200 MG Orally Once a day 1 tablet Clonazepam [facility] [address]-67 1 MG Orally TID 1 tablet HydrOXYzine HCl [facility] [address]-88 not defined Triamcinolone Acetonide [facility] [address]-78 0.1 % Externally Three times a day September 01, 2015 1 application to affected area Nicoderm CQ [facility] [address]-35 21 MG/24HR Transdermal Once a day July 05, 2015 1 patch to skin Nicoderm CQ [facility] [address]-22 21 MG/24HR Transdermal Once a day June 30, 2015 1 patch to skin Ventolin HFA [facility] [address]-63 90 MCG/ACT Inhalation every 4 hrs August 13, 2015 2 puffs as needed Cetirizine HCl [facility] [address]-59 10 MG Orally twice daily September 01, 2015 1 tablet Procedures Procedure Coding System Code Date Office Visit, Est Pt., Level 3 CPT-4 18563 September 01, 2015 Vital Signs Date/Time: September 01, 2015 Blood Pressure Systolic 128 mm Hg Cardiac Monitoring Heart Rate 78 /min Temperature 98.3 F BMI 33.98 Index Weight 205.8 lbs Height 65.25 in Blood Pressure Diastolic 78 mm Hg Respiratory Rate 16 /min Results No Known Results Summary Purpose eClinicalWorks Submission
--- OUTSIDE RECORDS SUMMARY | 2017-01-02 18:07 | XMS REPORT ---
Author Author ESPERANZA NEUMANN Organization [facility] Address [address] [place] [address] Care Team Providers Care Pattern Finisher Name Role Phone LANG NEUMANNICE Unavailable PROBLEMS Type Condition ICD9-CM Code PVR19-RU Code Onset Dates Condition Status SNOMED Code Problem Other chronic pain G89.29 Active 21271767 Problem Routine health maintenance Z00.00 Active 819617600 Problem Family history of migraine Z82.0 Active 338490774 Problem Allergic rhinitis, unspecified allergic rhinitis trigger, unspecified rhinitis seasonality J30.9 Active 32310042 Problem Asthma exacerbation J45.901 Active 322337442 Problem Family history of hypertension Z82.49 Active 580984607 Problem History of substance abuse Z87.898 Active 047493649 Problem Gastroesophageal reflux disease without esophagitis K21.9 Active 829235433 Problem Migraine without aura and with status migrainosus, not intractable G43.001 Active 771414580 Problem Morbid obesity due to excess calories E66.01 Active 444028895 Problem Family history of diabetes mellitus Z83.3 Active 216965449 Problem Lumbago with sciatica, left side M54.42 Active 695336914 Problem Obesity (BMI 30-39.9) E66.9 Active 095329470 Problem Lumbago with sciatica, right side M54.41 Active 022873283 ALLERGIES No Known Allergies SOCIAL HISTORY Never Assessed PLAN OF CARE Activity Details Follow Up prn Reason: VITAL SIGNS Height 64.5 in 2016-03-06 Weight 243.2 lbs 2016-03-06 Temperature 98.2 degrees Fahrenheit 2016-03-06 Heart Rate 76 bpm 2016-03-06 Respiratory Rate 20 2016-03-06 BMI 41.10 kg/m2 2016-03-06 Blood pressure systolic 118 mmHg 2016-03-06 Blood pressure diastolic 70 mmHg 2016-03-06 MEDICATIONS Medication Instructions Dosage Frequency Start Date End Date Duration Status Tylenol Extra Strength 500 MG Orally every 6 hrs 2 tablets as needed 6h Active PredniSONE 20 MG Orally Once a day 1 tablet 24h Feb, Feb, 5 days Active ProAir HFA 108 (90 Base) MCG/ACT Inhalation every 4 hrs 2 puffs as needed 4h Feb, 30 days Active Ibuprofen 800 MG Orally Three times a day 1 tablet 8h Active Wellbutrin 100 MG 1 tablet 24h Active Melatonin 3 MG Orally Once a day 1 tablet at bedtime as needed with food 24h Active BusPIRone HCl 10 MG Orally Twice a day 1 tablet 12h Active Trazodone HCl 150 MG Orally Once a day 1 tablet at bedtime as needed 24h Active RESULTS Name Result Date Reference Range INFLUENZA A & B (IN HOUSE) 2016-03-06 INFLUENZA A negative INFLUENZA B negative Control + Lot # [id number] Exp date 2017 PROCEDURES Procedure Date Ordered Result Body Site INFLUENZA ASSAY W/OPTIC Mar 06, 2016 IMMUNIZATIONS No Known Immunizations MEDICAL (GENERAL) HISTORY Type Description Date Medical History Anxiety disorder Medical History depression Medical History Panic attacks Hospitalization History childbirth only
--- OUTSIDE RECORDS SUMMARY | 2017-01-02 18:07 | XMS REPORT | Clinical Summary ---
Author Author Admin, E Organization [facility] Address Unknown Phone Unavailable Allergies, Adverse Reactions, [...] Sinusitis, frontal, acute 461.1 Resolved Shikha Yokum [employer]IE[employer]IST [employer] Acute frontal sinusitis Pharyngitis 462 Resolved Shikha Yokum CHIE[employer] SPECIALIST LEED Acute pharyngitis Scabies 133.0 Resolved Shikha Yokum CHIE[employer] SPECIALIST LEED Scabies Folliculitis 704.8 Resolved Shikha Yokum [employer]IE[employer]IST [employer]ED Other specified diseases of hair and hair follicles Cough 786.2 Resolved Andrei Nichols MD Cough Dysuria 788.1 Active Shikha Randolph APRN Dysuria Vomiting 787.03 Active Andrei Nichols MD Vomiting alone Pharyngitis 462 Active Andrei Nichols MD Acute pharyngitis SINUSITIS, ACUTE 461.9 Inactive Jani Marrero MD Acute sinusitis, unspecified PEDICULUS CAPITIS ICD-132.0 Inactive Andrei Nichols MD BREAST PAIN, LEFT ICD-611.71 Inactive Andrei Nichols MD SINUSITIS ICD-473.9 Inactive Andrei Nichols MD WELL WOMAN EXAMINATION ICD-V72.31 Inactive Alondra Denton MD INSERTION OF IMPLANTABLE SUBDERMAL CONTRACEPTIVE ICD-V25.5 02/11 Inactive Alondra Denton MD TRICHOMONAL VULVOVAGINITIS ICD-131.01 Inactive Andrei iNchols MD DYSURIA ICD-788.1 Inactive Andrei Nichols MD 05/14 PHARYNGITIS ICD-462 Inactive Andrei Nichols MD ABSCESS, TOOTH ICD-522.5 Inactive Andrei Nichols MD BRONCHITIS ICD-490 Inactive Andrei Nichols MD 2012 DIARRHEA ICD-787.91 Inactive Ary Pool PA SCABIES ICD-133.0 Inactive Ary Pool PA ECZEMA ICD-692.9 Inactive Shikha Randolph CHIE[employer] SPECIALIST [employer]ED OTITIS MEDIA ICD-382.9 Inactive Ary URBINA 09/16 PHARYNGITIS ICD-462 Inactive Andrei Nichols MD UNSPECIFIED DISORDER TEETH&SUPPORTING STRUCTURES ICD-525.9 12/29 Inactive Shikha Randolph CHIE[employer] SPECIALIST LEED PHARYNGITIS-ACUTE ICD-462 Inactive Rosalie Boyd CHIEF SPECIALIST LEED DIARRHEA ICD-787.91 Inactive Andrei Nichols MD SHOULDER PAIN ICD-719.41 Inactive Shikha Randolph CHIEF SPECIALIST LEED NAUSEA AND VOMITING ICD-787.01 Inactive Andrei Nichols [...] PhD Dental caries ICD-521.00 Inactive Shikha Randolph [employer]IE[employer]IST [employer] Tooth pain ICD-525.9 Inactive Prisca Lockwood MD PhD Head lice ICD-132.0 Inactive Prisca Lockwood MD PhD Upper respiratory infection ICD-465.9 Inactive Prisca Lockwood MD PhD Sinusitis, frontal, acute ICD-461.1 Inactive Shikha Yokum [employer]IST [employer] Pharyngitis ICD-462 Inactive Shikha Yokum CHIEF SPECIALIST LEED 2013 Scabies ICD-133.0 Inactive Shikha Yokum CHIEF SPECIALIST LEED 12/29 Folliculitis ICD-704.8 Inactive Shikha Yokum CHIE[employer]IST LEED Cough ICD-786.2 Inactive Andrei Nichols MD SINUSITIS, ACUTE ICD-461.9 Inactive Jani Marrero MD Medication List Medication Instructions Start Date Stop Date Generic Name NDC Status Provider Patient Instruction ZITHROMAX 250 MG TAB 2 po today, then 1 po q days 2-5 AZITHROMYCIN [id number] No Longer Active Jani Marrero MD Active IBUPROFEN 800 MG TABS 1 tab PO TID IBUPROFEN 39615602194 Active Jani Marrero MD Active WELLBUTRIN SR 100 MG ORAL [id number] 1 TAB PO DAILY BUPROPION HCL 82953706661 Active Jani Marrero MD Active AMITRIPTYLINE HCL 50 MG TAB 1 po q hs for sleep AMITRIPTYLINE HCL 51977956635 Active Jani Marrero MD Active PROMETHAZINE HCL 25 MG TABS 1 four times a day as needed for vomiting PROMETHAZINE HCL 57029965856 No Longer Active Jani Marrero MD Active AMOXICILLIN 500 MG TABS 2 tabs twice a day for 10 days AMOXICILLIN 35695807106 No Longer Active Jani Marrero MD Active SEROQUEL 200 MG ORAL TABS Take 1 tablet at hs QUETIAPINE FUMARATE 94572428115 No Longer Active Jani Marrero MD Active FETZIMA 40 MG ORAL [id number] LEVOMILNACIPRAN HCL 94135776614 No Longer Active Jani Marrero MD Active PROAIR HFA 108 (90 BASE) MCG/ACT AERS 2 puffs four times a day as needed 2015 ALBUTEROL SULFATE 95622821197 Active Andrei Nichols MD Active KLONOPIN 1 MG TABS 1 tablet TID CLONAZEPAM 47099999353 Active Andrei Nichols MD Active PROAIR HFA 108 (90 BASE) MCG/ACT AERS 2 puffs four times a day as needed 2011 ALBUTEROL SULFATE 02551395085 No Longer Active Alondra Denton MD Active IBUPROFEN 600 MG TAB 1 tablet three times a day as needed IBUPROFEN 61614959602 No Longer Active Alondra Denton MD Active LATUDA 20 MG TABS 1 tab at at night with meal LURASIDONE HCL 96160084618 No Longer Active Alondra Denton MD Active CYCLOBENZAPRINE HCL 10 MG TABS 1/2 to 1 tablet every 4 hours CYCLOBENZAPRINE HCL 11590417721 No Longer Active Alondra Denton MD Active CYCLOBENZAPRINE HCL 10 MG TABS 1/2 to 1 tablet by mouth three times daily as needed for muscle spasm/pain CYCLOBENZAPRINE HCL 52723900382 No Longer Active Alondra Denton MD Active SUPRAX 400 MG CAPS Take one tablet twice daily for 7 days CEFIXIME 60860366098 No Longer Active Shikha Radnolph APRN Active TESSALON PERLES 100 MG CAP 1 tablet by mouth 3 times daily 01/20 BENZONATATE 12628011130 No Longer Active Shikha Yokum CHIEF SPECIALIST LEED Active HYDROXYZINE HCL 10 MG TABS 1 to 2 three times a day as needed for itching HYDROXYZINE HCL 74133359868 No Longer Active Shikha Yokum CHIEF SPECIALIST LEED Active CYCLOBENZAPRINE HCL 10 MG TABS 1 three times a day as needed for back spasm CYCLOBENZAPRINE HCL 76717852062 No Longer Active Shikha Yokum CHIEF SPECIALIST LEED Active SEROQUEL 200 MG TABS 1 tablet at bedtime. QUETIAPINE FUMARATE 29554781420 No Longer Active Shikha Yokum CHIEF SPECIALIST LEED Active BACTRIM DS 800-160 MG TAB 1 tab by mouth twice daily TRIMETHOPRIM-SULFAMETHOXAZOLE 35611120978 No Longer Active Shikha Yokum CHIEF SPECIALIST LEED Active STROMECTOL 3 MG TABS 5 tablets by mouth one time on an empty stomach, may repeat in 2 weeks if needed IVERMECTIN 97164763480 No Longer Active Shikha Yokum CHIEF SPECIALIST LEED Active PERMETHRIN 5 % CREA apply neck to toes tonight and then rinse off in morning. repeat at 7 days PERMETHRIN 86276058804 No Longer Active Andrei Nichols MD Active MEDROL (NISA) 4 MG TABS 6 tabs on day 1, 5 tabs on day 2, 4 tabs on day 3, 3 tabs on day 4, 2 tabs on day 5, 1 tab on day 6 METHYLPREDNISOLONE 89582946386 No Longer Active Prisca Lockwood MD PhD Active AZITHROMYCIN 250 MG TABS 2 po qd x 1 day, then 1 po qd x 4 days AZITHROMYCIN 03511219383 No Longer Active Prisca Lockwood MD PhD Active CELEXA 20 MG TABS Take 1.5 tablets daily CITALOPRAM HYDROBROMIDE 40741656733 No Longer Active Prisca Lockwood MD PhD Active LOMOTIL 2.5-0.025 MG TAB 1 to 2 four times a day as needed for diarrhea 01/21 DIPHENOXYLATE-ATROPINE 26157883611 No Longer Active Prisca Lockwood MD PhD Active TAMIFLU 75 MG CAPS 1 bid x 5 days OSELTAMIVIR PHOSPHATE 02974063661 No Longer Active Rosalie Boyd APRN Active ZITHROMAX 250 MG TAB 2 po today, then 1 po q days 2-5 AZITHROMYCIN 78691942751 No Longer Active Rosalie Boyd APRN Active STROMECTOL 3 MG TABS 6 pills by mouth x 1; repeat in 10 days 2012 IVERMECTIN 67793189643 No Longer Active Rosalie Boyd APRN Active TYLENOL WITH CODEINE #3 300-30 MG TABS ONE TABLET FOUR TIMES A DAY NEEDED for pain or cough ACETAMINOPHEN-CODEINE 02643755095 No Longer Active Rosalie Boyd APRN Active GUAIFENESIN-CODEINE 100-10 MG/5ML SYRP 1 tsp PO q6h PRN cough GUAIFENESIN-CODEINE 41548925060 No Longer Active Rosalie Boyd APRN Active KEFLEX 500 MG CAP 1 po qid CEPHALEXIN 67166048774 No Longer Active Rosalie Boyd APRN Active GUAIFENESIN-CODEINE 100-10 MG/5ML SYRP 1 tsp PO q6h PRN cough GUAIFENESIN-CODEINE 81674055616 No Longer Active Rosalie Boyd APRN Active PROMETHAZINE HCL 25 MG TABS 1 four times a day as needed for nausea/vomiting PROMETHAZINE HCL 72466166334 No Longer Active Rosalie Boyd APRN Active LAMISIL AT 1 % CREA apply bid to rash TERBINAFINE HCL 50350800744 No Longer Active Andrei Nichols MD Active AMOXICILLIN 400 MG/5ML SUSR 6ml three times a day for 10 days AMOXICILLIN 50041644895 No Longer Active Andrei Nichols MD Active PROMETHAZINE HCL 25 MG TABS take 1 po Q 8 hours prn nausea and vomiting 12/11 PROMETHAZINE HCL 97382098184 No Longer Active Andrei Nichols MD Active BACTROBAN 2 % OINTMENT Apply bid to affected area MUPIROCIN 98164557619 No Longer Active Andrei Nichols MD Active GUAIFENESIN-CODEINE 100-10 MG/5ML SYRP 1 tsp PO q6h PRN cough GUAIFENESIN-CODEINE 44646623451 No Longer Active Anrdei Nichols MD Active BACTRIM DS 800-160 MG TABS 1 po BID x 10 days SULFAMETHOXAZOLE-TRIMETHOPRIM 85611781044 No Longer Active Rosalie Boyd APRN Active GUAIFENESIN-CODEINE 100-10 MG/5ML SYRP 1-2 tsp PO q6h PRN cough GUAIFENESIN-CODEINE 95535175243 No Longer Active Giovany URBINA Active PREDNISONE 20 MG TABS 1 tablet by mouth twice daily for 2 days, then 1 daily for 2 days PREDNISONE 91300098447 No Longer Active Giovany URBINA Active HYDROCODONE-ACETAMINOPHEN 5-325 MG TABS 1/2 to 1 po q 4 hours prn pain 11/13 HYDROCODONE-ACETAMINOPHEN 36747763351 No Longer Active Rosalie Boyd APRN Active PENICILLIN V POTASSIUM 500 MG TABS 1 TID PENICILLIN V POTASSIUM 59218145287 No Longer Active Andrei Nichols MD Active SEROQUEL 50 MG TABS 1 tablet at HS QUETIAPINE FUMARATE 96624293942 No Longer Active Andrei Nichols MD Active SEROQUEL 100 MG TABS 1 tablet at HS QUETIAPINE FUMARATE 97447106311 No Longer Active Andrei Nichols MD Active TRIAMCINOLONE ACETONIDE 0.1 % CREA apply three times daily prn rash TRIAMCINOLONE ACETONIDE 41085051318 No Longer Active Andrei Nichols MD Active AMOXICILLIN 500 MG TABS take one tab po tid x 10 days AMOXICILLIN 59065554099 No Longer Active Andrei Nichols MD Active CELEXA 20 MG TABS 1and 1/2 tablets by mouth daily CITALOPRAM HYDROBROMIDE 98846072334 No Longer Active Ayr Pool PA Active FLEXERIL 10 MG TAB 1/2 to one tablet every 12 hours as needed CYCLOBENZAPRINE HCL 92881130345 No Longer Active Ary Pool PA Active CLONAZEPAM 1 MG TABS take at bedtime CLONAZEPAM 90084167830 No Longer Active Ary Pool PA Active PERMETHRIN 5 % CREA applyhead to toes tonight and then rinse off in 18 hours. repeat at 7 days if needed. PERMETHRIN 08904494738 No Longer Active Ary Pool PA Active AMOXICILLIN 500 MG CAPS 2 po BID x 10 days AMOXICILLIN 08542508242 No Longer Active Andrei Nichols MD Active TYLENOL WITH CODEINE #3 300-30 MG TABS 1 to 2 four times a day as needed for pain ACETAMINOPHEN-CODEINE 21859871471 No Longer Active Retarylee Hampton Active PREDNISONE 20 MG TAB 2 tabs daily for 5 days, then 1 daily for 5 days PREDNISONE 32884175062 No Longer Active Reta Memo Active LOMOTIL 2.5-0.025 MG TAB 1 to 2 four times a day as needed for diarrhea 05/28 DIPHENOXYLATE-ATROPINE 40702514839 No Longer Active Reta Memo Active ALPRAZOLAM 1 MG TABS 1 tab tid ALPRAZOLAM 83201713337 No Longer Active Reta Memo Active AMOXICILLIN 500 MG CAPS 2 po BID x 10 days AMOXICILLIN 86832635689 No Longer Active Andrei Nichols MD Active AMOXICILLIN 500 MG TABS Take one tab by mouth 3 times daily, morning, afternoon and evening for 7 days. AMOXICILLIN 00303458362 No Longer Active Virginia Alejandra RN Active VICODIN 5-300 MG TABS one tab PO Q 6 hours PRN pain HYDROCODONE-ACETAMINOPHEN 54075805742 No Longer Active Virginia Alejandra RN Active FLAGYL 500 MG TABS four tabs PO one time METRONIDAZOLE 05348376646 No Longer Active Alondra Denton MD Active MELOXICAM 15 MG TABS 1 po q day for pain with food MELOXICAM 63893978931 No Longer Active Alondra Denton MD Active AMOXICILLIN 400 MG/5ML SUSR 5ml po TID x 10 days AMOXICILLIN 27675358478 No Longer Active Jani Marrero MD Active NIX CREME RINSE 1 % LIQD apply as directed carlotta, repeat at 7 days PERMETHRIN 34996212699 No Longer Active Corky Mckeon DO Active QVAR 40 MCG/ACT AERS one puff three times a day as needed BECLOMETHASONE DIPROPIONATE 21509938232 No Longer Active Andrei Nichols MD Active METHOCARBAMOL 500 MG TABS 1 to 2 qid prn back spasm METHOCARBAMOL 79611222569 No Longer Active Andrei Nichols MD Active VISTARIL 25 MG CAPS 1-2 tablets three times a day as needed HYDROXYZINE PAMOATE 50957357691 No Longer Active Andrei Nichols MD Active SEROQUEL 100 MG TABS 1/2 TABLET at hs QUETIAPINE FUMARATE 32570248562 No Longer Active Aicha Rizzo RN Active BACTRIM DS 800-160 MG TAB 1 tab by mouth twice daily TRIMETHOPRIM-SULFAMETHOXAZOLE 67712747725 No Longer Active Prisca Lockwood MD PhD Active CYCLOBENZAPRINE HCL 10 MG TABS TAKE 1/2 - 1 TAB EVERY 12 HOURS NEEDED 2010 CYCLOBENZAPRINE HCL 75986075639 No Longer Active Andrei Nichols MD Active CYCLOBENZAPRINE HCL 10 MG TABS TAKE 1/2 - 1 TAB EVERY 12 HOURS NEEDED 2010 CYCLOBENZAPRINE HCL 10 MG TABS 230933 CYCLOBENZAPRINE HCL Inactive SEROQUEL 100 MG TABS 1/2 TABLET at hs SEROQUEL 100 MG TABS 890639 QUETIAPINE FUMARATE Inactive VISTARIL 25 MG CAPS 1-2 tablets three times a day as needed VISTARIL 25 MG CAPS 473190 HYDROXYZINE PAMOATE Inactive METHOCARBAMOL 500 MG TABS 1 to 2 qid prn back spasm METHOCARBAMOL 500 MG TABS 636624 METHOCARBAMOL Inactive QVAR 40 MCG/ACT AERS one puff three times a day as needed QVAR 40 MCG/ACT AERS BECLOMETHASONE DIPROPIONATE Inactive NIX CREME RINSE 1 % LIQD apply as directed tonight, repeat at 7 days NIX CREME RINSE 1 % LIQD PERMETHRIN Inactive MELOXICAM 15 MG TABS 1 po q day for pain with food MELOXICAM 15 MG TABS 083813 MELOXICAM Inactive ALPRAZOLAM 1 MG TABS 1 tab tid ALPRAZOLAM 1 MG TABS 861158 ALPRAZOLAM Inactive LOMOTIL 2.5-0.025 MG TAB 1 to 2 four times a day as needed for diarrhea 05/28 LOMOTIL 2.5-0.025 MG TAB 4463277 DIPHENOXYLATE-ATROPINE Inactive PREDNISONE 20 MG TAB 2 tabs daily for 5 days, then 1 daily for 5 days PREDNISONE 20 MG TAB 781523 PREDNISONE Inactive TYLENOL WITH CODEINE #3 300-30 MG TABS 1 to 2 four times a day as needed for pain TYLENOL WITH CODEINE #3 300-30 MG TABS 004772 ACETAMINOPHEN-CODEINE Inactive PERMETHRIN 5 % CREA applyhead to toes tonight and then rinse off in 18 hours. repeat at 7 days if needed. PERMETHRIN 5 % CREA 464103 PERMETHRIN Inactive CLONAZEPAM 1 MG TABS take at bedtime CLONAZEPAM 1 MG TABS 171285 CLONAZEPAM Inactive FLEXERIL 10 MG TAB 1/2 to one tablet every 12 hours as needed FLEXERIL 10 MG TAB CYCLOBENZAPRINE HCL Inactive CELEXA 20 MG TABS 1and 1/2 tablets by mouth daily CELEXA 20 MG TABS 846256 CITALOPRAM HYDROBROMIDE Inactive AMOXICILLIN 500 MG TABS take one tab po tid x 10 days AMOXICILLIN 500 MG TABS 750624 AMOXICILLIN Inactive TRIAMCINOLONE ACETONIDE 0.1 % CREA apply three times daily prn rash TRIAMCINOLONE ACETONIDE 0.1 % CREA 6396378 TRIAMCINOLONE ACETONIDE Inactive SEROQUEL 100 MG TABS 1 tablet at HS SEROQUEL 100 MG TABS 346340 QUETIAPINE FUMARATE Inactive SEROQUEL 50 MG TABS 1 tablet at HS SEROQUEL 50 MG TABS 140201 QUETIAPINE FUMARATE Inactive HYDROCODONE-ACETAMINOPHEN 5-325 MG TABS 1/2 to 1 po q 4 hours prn pain 11/13 HYDROCODONE-ACETAMINOPHEN 5-325 MG TABS 842529 HYDROCODONE- ACETAMINOPHEN Inactive PREDNISONE 20 MG TABS 1 tablet by mouth twice daily for 2 days, then 1 daily for 2 days PREDNISONE 20 MG TABS 337779 PREDNISONE Inactive GUAIFENESIN-CODEINE 100-10 MG/5ML SYRP 1-2 tsp PO q6h PRN cough GUAIFENESIN-CODEINE 100-10 MG/5ML SYRP 125783 GUAIFENESIN-CODEINE Inactive GUAIFENESIN-CODEINE 100-10 MG/5ML SYRP 1 tsp PO q6h PRN cough GUAIFENESIN-CODEINE 100-10 MG/5ML SYRP 787803 GUAIFENESIN-CODEINE Inactive BACTROBAN 2 % OINTMENT Apply bid to affected area BACTROBAN 2 % OINTMENT 463968 MUPIROCIN Inactive PROMETHAZINE HCL 25 MG TABS take 1 po Q 8 hours prn nausea and vomiting 12/11 PROMETHAZINE HCL 25 MG TABS 422584 PROMETHAZINE HCL Inactive AMOXICILLIN 400 MG/5ML SUSR 6ml three times a day for 10 days AMOXICILLIN 400 MG/5ML SUSR 180174 AMOXICILLIN Inactive LAMISIL AT 1 % CREA apply bid to rash LAMISIL AT 1 % CREA 286769 TERBINAFINE HCL Inactive PROMETHAZINE HCL 25 MG TABS 1 four times a day as needed for nausea/vomiting PROMETHAZINE HCL 25 MG TABS 291880 PROMETHAZINE HCL Inactive GUAIFENESIN-CODEINE 100-10 MG/5ML SYRP 1 tsp PO q6h PRN cough GUAIFENESIN-CODEINE 100-10 MG/5ML SYRP 489492 GUAIFENESIN-CODEINE Inactive KEFLEX 500 MG CAP 1 po qid KEFLEX 500 MG CAP 005342 CEPHALEXIN Inactive GUAIFENESIN-CODEINE 100-10 MG/5ML SYRP 1 tsp PO q6h PRN cough GUAIFENESIN-CODEINE 100-10 MG/5ML SYRP 613383 GUAIFENESIN-CODEINE Inactive TYLENOL WITH CODEINE #3 300-30 MG TABS ONE TABLET FOUR TIMES A DAY NEEDED for pain or cough TYLENOL WITH CODEINE #3 300-30 MG TABS 948682 ACETAMINOPHEN-CODEINE Inactive STROMECTOL 3 MG TABS 6 pills by mouth x 1; repeat in 10 days 2012 STROMECTOL 3 MG TABS 815761 IVERMECTIN Inactive LOMOTIL 2.5-0.025 MG TAB 1 to 2 four times a day as needed for diarrhea 01/21 LOMOTIL 2.5-0.025 MG TAB 3487867 DIPHENOXYLATE-ATROPINE Inactive CELEXA 20 MG TABS Take 1.5 tablets daily CELEXA 20 MG TABS 494893 CITALOPRAM HYDROBROMIDE Inactive PERMETHRIN 5 % CREA apply neck to toes tonight and then rinse off in morning. repeat at 7 days PERMETHRIN 5 % CREA 067627 PERMETHRIN Inactive STROMECTOL 3 MG TABS 5 tablets by mouth one time on an empty stomach, may repeat in 2 weeks if needed STROMECTOL 3 MG TABS 403298 IVERMECTIN Inactive BACTRIM DS 800-160 MG TAB 1 tab by mouth twice daily BACTRIM DS 800-160 MG TAB 945177 TRIMETHOPRIM-SULFAMETHOXAZOLE Inactive SEROQUEL 200 MG TABS 1 tablet at bedtime. SEROQUEL 200 MG TABS 506982 QUETIAPINE FUMARATE Inactive CYCLOBENZAPRINE HCL 10 MG TABS 1 three times a day as needed for back spasm CYCLOBENZAPRINE HCL 10 MG TABS 446586 CYCLOBENZAPRINE HCL Inactive HYDROXYZINE HCL 10 MG TABS 1 to 2 three times a day as needed for itching HYDROXYZINE HCL 10 MG TABS 833602 HYDROXYZINE HCL Inactive TESSALON PERLES 100 MG CAP 1 tablet by mouth 3 times daily 01/20 TESSALON PERLES 100 MG CAP 278490 BENZONATATE Inactive CYCLOBENZAPRINE HCL 10 MG TABS 1/2 to 1 tablet by mouth three times daily as needed for muscle spasm/pain CYCLOBENZAPRINE HCL 10 MG TABS 102771 CYCLOBENZAPRINE HCL Inactive CYCLOBENZAPRINE HCL 10 MG TABS 1/2 to 1 tablet every 4 hours CYCLOBENZAPRINE HCL 10 MG TABS 169578 CYCLOBENZAPRINE HCL Inactive LATUDA 20 MG TABS 1 tab at at night with meal LATUDA 20 MG TABS LURASIDONE HCL Inactive IBUPROFEN 600 MG TAB 1 tablet three times a day as needed IBUPROFEN 600 MG TAB 966469 IBUPROFEN Inactive PROAIR HFA 108 (90 BASE) MCG/ACT AERS 2 puffs four times a day as needed 2011 PROAIR HFA 108 (90 BASE) MCG/ACT AERS ALBUTEROL SULFATE Inactive FETZIMA 40 MG ORAL [id number] FETZIMA 40 MG ORAL [id number] LEVOMILNACIPRAN HCL Inactive SEROQUEL 200 MG ORAL TABS Take 1 tablet at hs SEROQUEL 200 MG ORAL TABS 995013 QUETIAPINE FUMARATE Inactive AMOXICILLIN 500 MG TABS 2 tabs twice a day for 10 days AMOXICILLIN 500 MG TABS 215390 AMOXICILLIN Inactive PROMETHAZINE HCL 25 MG TABS 1 four times a day as needed for vomiting PROMETHAZINE HCL 25 MG TABS 470653 PROMETHAZINE HCL Inactive BACTRIM DS 800-160 MG TAB 1 tab by mouth twice daily BACTRIM DS 800-160 MG TAB 278754 TRIMETHOPRIM-SULFAMETHOXAZOLE Inactive AMOXICILLIN 400 MG/5ML SUSR 5ml po TID x 10 days AMOXICILLIN 400 MG/5ML SUSR 716500 AMOXICILLIN Inactive FLAGYL 500 MG TABS four tabs PO one time FLAGYL 500 MG TABS 681849 METRONIDAZOLE Inactive AMOXICILLIN 500 MG TABS Take one tab by mouth 3 times daily, morning, afternoon and evening for 7 days. AMOXICILLIN 500 MG TABS 686351 AMOXICILLIN Inactive AMOXICILLIN 500 MG CAPS 2 po BID x 10 days AMOXICILLIN 500 MG CAPS 076794 AMOXICILLIN Inactive AMOXICILLIN 500 MG CAPS 2 po BID x 10 days AMOXICILLIN 500 MG CAPS 728155 AMOXICILLIN Inactive PENICILLIN V POTASSIUM 500 MG TABS 1 TID PENICILLIN V POTASSIUM 500 MG TABS 361949 PENICILLIN V POTASSIUM Inactive BACTRIM DS 800-160 MG TABS 1 po BID x 10 days BACTRIM DS 800-160 MG TABS 289545 SULFAMETHOXAZOLE-TRIMETHOPRIM Inactive ZITHROMAX 250 MG TAB 2 po today, then 1 po q days 2-5 ZITHROMAX 250 MG TAB 2412211 AZITHROMYCIN Inactive TAMIFLU 75 MG CAPS 1 bid x 5 days TAMIFLU 75 MG CAPS 204840 OSELTAMIVIR PHOSPHATE Inactive AZITHROMYCIN 250 MG TABS 2 po qd x 1 day, then 1 po qd x 4 days AZITHROMYCIN 250 MG TABS 4910210 AZITHROMYCIN Inactive MEDROL (NISA) 4 MG TABS 6 tabs on day 1, 5 tabs on day 2, 4 tabs on day 3, 3 tabs on day 4, 2 tabs on day 5, 1 tab on day 6 MEDROL ( NISA) 4 MG TABS 469959 METHYLPREDNISOLONE Inactive SUPRAX 400 MG CAPS Take one tablet twice daily for 7 days SUPRAX 400 MG CAPS CEFIXIME Inactive ZITHROMAX 250 MG TAB 2 po today, then 1 po q days 2-5 ZITHROMAX 250 MG TAB 5183384 AZITHROMYCIN Inactive Immunizations Vaccine Administration Date Value Standard Description Seasonal influenza vaccine, injectable, containing preservative, for > 3 years old (Afluria, FluLaval, Fluzone, Fluvirin, Fluarix, Agriflu(>=18 yo)) Fluzone (>3 yrs.) [[id number]] Influenza, seasonal, injectable pneumococcal immunization administered Pneumovax 23 [CVX33] pneumococcal polysaccharide vaccine, 23 valent Seasonal influenza vaccine, injectable, containing preservative, for > 3 years old (Afluria, FluLaval, Fluzone, Fluvirin, Fluarix, Agriflu(>=18 yo)) Fluzone (>3 yrs.) [KQP211] Influenza, seasonal, injectable Seasonal influenza vaccine, injectable, containing preservative, for > 3 years old (Afluria, FluLaval, Fluzone, Fluvirin, Fluarix, Agriflu(>=18 yo)) Fluzone (>3 yrs.) [ZYC327] Influenza, seasonal, injectable hepatitis B vaccine #1 [...] Measured Encounters Code Encounter Date Provider Facility CPT-74580 Level 3 Est. Patient 11:04:11 SURVEY TECHNOLOGIST Jani Marrero MD [facility] CPT-65576 Level 3 Est. Patient 12:02:27 SURVEY TECHNOLOGIST Andrei Nichols MD [facility] CPT-03325 Level 3 Est. Patient 12:47:17 SURVEY TECHNOLOGIST Andrei Nichols MD [facility] CPT-05117 Level 3 Est. Patient 14:51:20 SURVEY TECHNOLOGIST Shikha Yokum [facility] CPT-68600 Level 3 Est. Patient 10:42:38 CDT Shikha Randolph [facility] CPT-79535 Level 3 Est. Patient 18:20:39 CDT Prisca Lockwood MD PhD [facility]-18550 Level 3 Est. Patient 16:42:47 SURVEY TECHNOLOGIST Rosalie Boyd [facility] CPT-46792 Level 3 Est. Patient 14:34:36 SURVEY TECHNOLOGIST Rosalie Boyd [facility] CPT-95984 Level 4 Est. Patient 10:23:07 SURVEY TECHNOLOGIST Andrei Nichols MD [facility]-20678 Level 3 Est. Patient 16:47:31 SURVEY TECHNOLOGIST Andrei Nichols MD [facility]-77555 Level 3 Est. Patient 11:59:14 CDT Rosalie Boyd [facility]-02173 Level 3 Est. Patient 15:30:34 CDT Giovany URBINA [facility] CPT-70635 Level 3 Est. Patient 11:03:03 CDT Rosalie Boyd [facility]-43564 Level 3 Est. Patient 11:08:07 CDT Rosalie Oliver [facility] CPT-81960 Level 3 Est. Patient 14:07:32 CDT Andrei Nichols MD [facility]-35658 Level 3 Est. Patient 17:08:28 CDT Andrei Nichols MD [facility]-29020 Level 3 Est. Patient 13:10:13 CDT Jani Marrero MD [facility]-65665 Level 3 Est. Patient 11:27:12 CDT Jani Marrero MD [facility]-52082 Level 3 Est. Patient 13:44:42 CDT Andrei Nichols MD [facility] CPT-83027 Level 3 Est. Patient 12:34:57 SURVEY TECHNOLOGIST Andrei Nichols MD [facility] CPT-02330 Level 3 Est. Patient 15:30:06 CDT Jani Marrero MD [facility] CPT-60250 Level 3 Est. Patient 21:59:00 CDT Corky Mckeon DO [facility] CPT-45811 Level 3 Est. Patient 17:12:49 CDT Andrei Nichols MD [facility] CPT-80348 Level 4 Est. Patient 12:27:45 SURVEY TECHNOLOGIST Andrei Nichols MD [facility] CPT-60830 Level 3 Est. Patient 12:15:34 SURVEY TECHNOLOGIST Andrei Nichols MD [facility] Procedures Code Procedure Name Date Entry Date Standard Description CPT-OV Office Visit 11:36:40 CDT CPT-90825 Administration 2+ single or combination vaccines inc oral 07:50:30 CDT CPT-92153 Administration single or combination vaccine inc oral 07 :50:30 CDT CPT-39418 Pneumovax 07:50:30 CDT CPT-36914 Influenza split virus > age 3 07:50:30 CDT CPT-OV Office Visit 11:49:10 SURVEY TECHNOLOGIST CPT-42029 Nexplanon Removal with Reinsertion 14:02:06 SURVEY TECHNOLOGIST CPT-J7307 Nexplanon (Implant) 14:02:06 SURVEY TECHNOLOGIST CPT-OV Office Visit 14:02:06 SURVEY TECHNOLOGIST CPT-OV Office Visit 11:58:04 SURVEY TECHNOLOGIST CPT-05238 Administration single or combination vaccine inc oral 11 :31:07 CDT CPT-16744 Influenza split virus > age 3 11:31:07 T CPT-45433 Administration single or combination vaccine inc oral 10 :34:13 CDT CPT-94913 Influenza split virus > age 3 10:34:13 CDT
--- OUTSIDE RECORDS SUMMARY | 2017-01-02 18:07 | XMS REPORT ---
Author Author [facility] Medical Staff Organization [facility] Address [address], [place] [address] Phone [phone] Care Team Providers Care Boathouse Keeper Name Role Phone FELIPE MONROE MD PP [phone] Summary purpose TRANSITION OF CARE AUTO GENERATION [...] tests and/or laboratory data RESULTS Radiology Results [id number] HAND XRAY - 3 VIEW PACs Image DATE OF EXAM: Jan 29 2015 RAD 0730-HAND XRAY-3 VIEW- LEFT: RADIOLOGY REPORT DATE OF SERVICE: 01/29/15 HISTORY: Hand injury with laceration LEFT HAND 3 VIEWS 0310 HOURS There is no fracture. There are no opaque foreign bodies. The soft tissues appear unremarkable. IMPRESSION: Normal hand. MD HILLARY Gonzales/ne01/29/2015 07:51:00 / 01/29/2015 08:12:51 cc:Dr. Felipe Monroe [...] has been electronically Signed by: SUE MITCHELL MD On: Jan 29 2015 11:08A Result Amended on 2015-01-29 at 11:08:15. Previous status was CT. History of procedures Procedure Code Code Type Description Date Performed Performing Physician [id number] ICD10 Repair Left Hand Skin, External Approach 01-29-2015 ANTONETTE SOILA 55614 CPT-4 X-RAY EXAM OF HAND 01-29-2015 ANTONETTE SOILA 21789 CPT-4 TDAP VACCINE 7 YRS/> IM 01-29-2015 ANTONETTE SOILA 19853 CPT-4 EMERGENCY DEPT VISIT 01-29-2015 ANTONETTE SOILA 95819 CPT-4 IMMUNIZATION ADMIN 01-29-2015 ANTONETTE SOILA 61521 CPT-4 INTMD RPR N-HF/GENIT 2.5CM/< 01-29-2015 ANTONETTE SOILA 91663 CPT-4 INTMD RPR N-HF/GENIT 2.5CM/< 01-29-2015 ANTONETTE SOILA Functional status Functional Status Finding Observation Time Abdomen Appearance round :25 Abdomen soft :25 Kapoor no :25 Urination normal :25 Quality sym/unlabored : Cough absent : Secretions no : Airway natural : Chest Tube no :25 Oxygen no :36 Temp >100.4 no : Temp <96.8 no : Chills with rigors no : HR > 90bpm no :25 Respirations > 20 no :25 Systolic <90 no : headache stiff neck no :25 Rapid Resp no :25 Nursing Note DC instructions given with noted [...] 79mmHg :36 Temperature 98.3F :36 Height 64inches :17 Weight 167.4LB :17 Social history No Social [...]
--- OUTSIDE RECORDS SUMMARY | 2017-01-02 18:08 | XMS REPORT ---
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 Name Role Phone Jennifer Hernandez CP Unavailable Allergies No Known Allergies Problems Problem Type Condition Code Onset Dates Condition Status Problem Methamphetamine abuse F15.10 Active Problem Tobacco abuse Z72.0 Active Problem Well woman exam (no gynecological exam) Z00.00 Active Problem Implantable subdermal contraceptive surveillance Z30.49 Active Problem Screening for diabetes mellitus Z13.1 Active Problem Screening examination for sexually transmitted disease Z11.3 Active Problem Injury of left hand S69.92XA Active Medications Medication Code System Code Instructions Start Date End Date Status Dosage Nicoderm [facility] [address]-05 21 MG/24HR Transdermal Once a day July 05, 2015 1 patch to skin Results No Known Results Summary Purpose [employer] Submission
--- OUTSIDE RECORDS SUMMARY | 2017-01-02 18:08 | XMS REPORT ---
Author Author DEEPIKA NI [facility] Address [address] [place] [address] Care Team Providers Care Pole Framer Name Role Phone DEEPIKA NI Unavailable PROBLEMS Type Condition ICD9-CM Code EOS83-MI Code Onset Dates Condition Status SNOMED Code Problem History of substance abuse Z87.898 Active 522021167 Problem Family history of diabetes mellitus Z83.3 Active 717537857 Problem Family history of hypertension Z82.49 Active 218014202 Problem Allergic rhinitis, unspecified allergic rhinitis trigger, unspecified rhinitis seasonality J30.9 Active 79125272 Problem Asthma exacerbation J45.901 Active 385071704 Problem Other chronic pain G89.29 Active 42470339 Problem Routine health maintenance Z00.00 Active 052291481 Problem Lumbago with sciatica, left side M54.42 Active 151440999 Problem Lumbago with sciatica, right side M54.41 Active 679164648 Problem Gastroesophageal reflux disease without esophagitis K21.9 Active 798105056 Problem Migraine without aura and with status migrainosus, not intractable G43.001 Active 863522576 Problem Obesity (BMI 30-39.9) E66.9 Active 812866285 Problem Family history of migraine Z82.0 Active 505119306 Problem Morbid obesity due to excess calories E66.01 Active 486968378 ALLERGIES Substance Reaction Event Type Date Status N.K.D.A. Unknown Non Drug Allergy Feb, Unknown SOCIAL HISTORY No smoking Hx information available PLAN OF CARE Activity Details Follow Up prn with PCP Neema Reason: VITAL SIGNS Height 64.5 in 2016-03-08 Weight 244.5 lbs 2016-03-08 Temperature 97.6 degrees Fahrenheit 2016-03-08 Heart Rate 78 bpm 2016-03-08 Respiratory Rate 22 2016-03-08 BMI 41.32 kg/m2 2016-03-08 Blood pressure systolic 118 mmHg 2016-03-08 Blood pressure diastolic 84 mmHg 2016-03-08 MEDICATIONS Medication Instructions Dosage Frequency Start Date End Date Duration Status Melatonin 3 MG Orally Once a day 1 tablet at bedtime as needed with food 24h Active Tylenol Extra Strength 500 MG Orally every 6 hrs 2 tablets as needed 6h Active Wellbutrin 100 MG 1 tablet 24h Active ProAir HFA 108 (90 Base) MCG/ACT Inhalation every 4 hrs 2 puffs as needed 4h Feb, 30 days Active BusPIRone HCl 10 MG Orally Twice a day 1 tablet 12h Active Ibuprofen 800 MG Orally Three times a day 1 tablet 8h Active Trazodone HCl 150 MG Orally Once a day 1 tablet at bedtime as needed 24h Active PredniSONE 50 mg Orally Once a day 1 tablet 24h Feb, Mar, 05 days Active RESULTS No Results PROCEDURES Procedure Date Ordered Related Diagnosis Body Site Office Visit, Est Pt., Level 4 Mar 08, 2016 IMMUNIZATIONS No Known Immunizations
--- OUTSIDE RECORDS SUMMARY | 2017-01-02 18:08 | XMS REPORT | Clinical Summary ---
Author Author Admin, QIE Organization [facility] [employer] Address Unknown Phone Unavailable Allergies, Adverse Reactions, [...] Sinusitis, frontal, acute 461.1 Resolved Shikha Yokum [employer] BLOWING INSTRUCTOR Acute frontal sinusitis Pharyngitis 462 Resolved Shikha Yokum [employer] BL[employer]ING INSTRUCTOR Acute pharyngitis Scabies 133.0 Resolved Shikha Yokum GLASS BLOWING INSTRUCTOR Scabies Folliculitis 704.8 Resolved Shikha Yokum GLASS BLOWING INSTRUCTOR Other specified diseases of hair and hair [...] Reagan PA ECZEMA ICD-692.9 Inactive Shikha Tomasa GLASS BLOWING INSTRUCTOR OTITIS MEDIA ICD-382.9 Inactive Ary Kirk PA 09/16 PHARYNGITIS ICD-462 Inactive Andrei Nichols MD UNSPECIFIED DISORDER TEETH&SUPPORTING STRUCTURES ICD-525.9 12/29 Inactive Shikha Randolph GLASS BLOWING INSTRUCTOR PHARYNGITIS-ACUTE ICD-462 Inactive Rosalie Boyd GLASS BLOWING INSTRUCTOR DIARRHEA ICD-787.91 Inactive Andrei Nichols MD SHOULDER PAIN ICD-719.41 Inactive Shikha Randolph GLASS BLOWING INSTRUCTOR NAUSEA AND VOMITING ICD-787.01 Inactive Andrei Nichols [...] PhD Dental caries ICD-521.00 Inactive Shikha Yokum GL[employer] BL[employer]ING INSTRUCTOR Tooth pain ICD-525.9 Inactive Prisca Lockwood MD PhD Head lice ICD-132.0 Inactive Prisca Lockwood MD PhD Upper respiratory infection ICD-465.9 Inactive Prisca Lockwood MD PhD Sinusitis, frontal, acute ICD-461.1 Inactive Shikha Yokum [employer] BL[employer]ING INSTRUCTOR Pharyngitis ICD-462 Inactive Shikha Yokum GLASS BLOWING INSTRUCTOR 2013 Scabies ICD-133.0 Inactive Shikha Yokum GLASS BLOWING INSTRUCTOR 12/29 Folliculitis ICD-704.8 Inactive Shikha Yokum GL[employer] BL[employer]ING INSTRUCTOR Cough ICD-786.2 Inactive Andrei Nichols MD SINUSITIS, ACUTE ICD-461.9 Inactive Jani Marrero MD Medication List Medication Instructions Start Date Stop Date Generic Name NDC Status Provider Patient Instruction MELOXICAM 15 MG TABS 1 daily for knee pain MELOXICAM [id number] Active Renetta Ryan APRN Active CYCLOBENZAPRINE HCL 10 MG TABS 1 three times a day as needed for muscle spasm CYCLOBENZAPRINE HCL 01675124761 Active Reentta Ryan APRN Active BUSPIRONE HCL 10 MG ORAL TABS 2 TABS PO BID BUSPIRONE HCL 55865081100 Active Renetta Ryan APRN Active AMITRIPTYLINE HCL 75 MG ORAL TABS 1 TAB Q HS AMITRIPTYLINE HCL 14653251268 Active Renetta Ryan APRN Active PROAIR HFA 108 (90 BASE) MCG/ACT AERS 2 puffs four times a day as needed 2015 ALBUTEROL SULFATE 68436014364 No Longer Active Renetta Ryan APRN Active KLONOPIN 1 MG TABS 1 tablet TID CLONAZEPAM 22721643589 No Longer Active Renetta Ryan APRN Active ZITHROMAX 250 MG TAB 2 po today, then 1 po q days 2-5 AZITHROMYCIN 84357514031 No Longer Active Jani Marrero MD Active IBUPROFEN 800 MG TABS 1 tab PO TID IBUPROFEN 09814331723 Active Jani Marrero MD Active WELLBUTRIN SR 100 MG ORAL [id number] 1 TAB PO DAILY BUPROPION HCL 26113617869 Active Jani Marrero MD Active AMITRIPTYLINE HCL 50 MG TAB 1 po q hs for sleep AMITRIPTYLINE HCL 15728732947 No Longer Active Jani Marrero MD Active PROMETHAZINE HCL 25 MG TABS 1 four times a day as needed for vomiting PROMETHAZINE HCL 19184452796 No Longer Active Jani Marrero MD Active AMOXICILLIN 500 MG TABS 2 tabs twice a day for 10 days AMOXICILLIN 08851598626 No Longer Active Jani Marrero MD Active SEROQUEL 200 MG ORAL TABS Take 1 tablet at hs QUETIAPINE FUMARATE 58306918190 No Longer Active Jani Marrero MD Active FETZIMA 40 MG ORAL [id number] LEVOMILNACIPRAN HCL 76382442663 No Longer Active Jani Marrero MD Active PROAIR HFA 108 (90 BASE) MCG/ACT AERS 2 puffs four times a day as needed 2011 ALBUTEROL SULFATE 23436320996 No Longer Active Alondra Denton MD Active IBUPROFEN 600 MG TAB 1 tablet three times a day as needed IBUPROFEN 56618655755 No Longer Active Alondra Denton MD Active LATUDA 20 MG TABS 1 tab at at night with meal LURASIDONE HCL 85540681900 No Longer Active Alondra Denton MD Active CYCLOBENZAPRINE HCL 10 MG TABS 1/2 to 1 tablet every 4 hours CYCLOBENZAPRINE HCL 63379309713 No Longer Active Alondra Denton MD Active CYCLOBENZAPRINE HCL 10 MG TABS 1/2 to 1 tablet by mouth three times daily as needed for muscle spasm/pain CYCLOBENZAPRINE HCL 77512918133 No Longer Active Alondra Denton MD Active SUPRAX 400 MG CAPS Take one tablet twice daily for 7 days CEFIXIME 78090838787 No Longer Active Shikha Yokum GLASS BLOWING INSTRUCTOR Active TESSALON PERLES 100 MG CAP 1 tablet by mouth 3 times daily 01/20 BENZONATATE 04381936924 No Longer Active Shikha Yokum GLASS BLOWING INSTRUCTOR Active HYDROXYZINE HCL 10 MG TABS 1 to 2 three times a day as needed for itching HYDROXYZINE HCL 39681635982 No Longer Active Shikha Yokum GLASS BLOWING INSTRUCTOR Active CYCLOBENZAPRINE HCL 10 MG TABS 1 three times a day as needed for back spasm CYCLOBENZAPRINE HCL 67093346518 No Longer Active Shikha Yokum GLASS BLOWING INSTRUCTOR Active SEROQUEL 200 MG TABS 1 tablet at bedtime. QUETIAPINE FUMARATE 16484275234 No Longer Active Shikha Yokum GLASS BLOWING INSTRUCTOR Active BACTRIM DS 800-160 MG TAB 1 tab by mouth twice daily TRIMETHOPRIM-SULFAMETHOXAZOLE 61445774079 No Longer Active Shikha Yokum GLASS BLOWING INSTRUCTOR Active STROMECTOL 3 MG TABS 5 tablets by mouth one time on an empty stomach, may repeat in 2 weeks if needed IVERMECTIN 30244911436 No Longer Active Shikha Yokum GLASS BLOWING INSTRUCTOR Active PERMETHRIN 5 % CREA apply neck to toes tonight and then rinse off in morning. repeat at 7 days PERMETHRIN 89212427320 No Longer Active Andrei Nichols MD Active MEDROL (NISA) 4 MG TABS 6 tabs on day 1, 5 tabs on day 2, 4 tabs on day 3, 3 tabs on day 4, 2 tabs on day 5, 1 tab on day 6 METHYLPREDNISOLONE 25621109563 No Longer Active Prisca Lockwood MD PhD Active AZITHROMYCIN 250 MG TABS 2 po qd x 1 day, then 1 po qd x 4 days AZITHROMYCIN 44373554835 No Longer Active Prisca Lockwood MD PhD Active CELEXA 20 MG TABS Take 1.5 tablets daily CITALOPRAM HYDROBROMIDE 40027789590 No Longer Active Prisca Lockwood MD PhD Active LOMOTIL 2.5-0.025 MG TAB 1 to 2 four times a day as needed for diarrhea 01/21 DIPHENOXYLATE-ATROPINE 60852672837 No Longer Active Prisca Lockwood MD PhD Active TAMIFLU 75 MG CAPS 1 bid x 5 days OSELTAMIVIR PHOSPHATE 98610729014 No Longer Active Rosalie Boyd APRN Active ZITHROMAX 250 MG TAB 2 po today, then 1 po q days 2-5 AZITHROMYCIN 46631871959 No Longer Active Rosalie Boyd APRN Active STROMECTOL 3 MG TABS 6 pills by mouth x 1; repeat in 10 days 2012 IVERMECTIN 67386562094 No Longer Active Rosalie Boyd APRN Active TYLENOL WITH CODEINE #3 300-30 MG TABS ONE TABLET FOUR TIMES A DAY NEEDED for pain or cough ACETAMINOPHEN-CODEINE 56586764087 No Longer Active Rosalie Boyd APRN Active GUAIFENESIN-CODEINE 100-10 MG/5ML SYRP 1 tsp PO q6h PRN cough GUAIFENESIN-CODEINE 32072787534 No Longer Active Rosalie Oliver GLASS BLOWING INSTRUCTOR Active KEFLEX 500 MG CAP 1 po qid CEPHALEXIN 27954217089 No Longer Active Rosalie Boyd APRN Active GUAIFENESIN-CODEINE 100-10 MG/5ML SYRP 1 tsp PO q6h PRN cough GUAIFENESIN-CODEINE 77132087463 No Longer Active Rosalie Boyd APRN Active PROMETHAZINE HCL 25 MG TABS 1 four times a day as needed for nausea/vomiting PROMETHAZINE HCL 13848603585 No Longer Active Rosalie Boyd APRN Active LAMISIL AT 1 % CREA apply bid to rash TERBINAFINE HCL 06094707108 No Longer Active Andrei Nichols MD Active AMOXICILLIN 400 MG/5ML SUSR 6ml three times a day for 10 days AMOXICILLIN 85476226920 No Longer Active Andrei Nichols MD Active PROMETHAZINE HCL 25 MG TABS take 1 po Q 8 hours prn nausea and vomiting 12/11 PROMETHAZINE HCL 20832301709 No Longer Active Andrei Nichols MD Active BACTROBAN 2 % OINTMENT Apply bid to affected area MUPIROCIN 15155937789 No Longer Active Andrei Nichols MD Active GUAIFENESIN-CODEINE 100-10 MG/5ML SYRP 1 tsp PO q6h PRN cough GUAIFENESIN-CODEINE 76009643058 No Longer Active Andrei Nichols MD Active BACTRIM DS 800-160 MG TABS 1 po BID x 10 days SULFAMETHOXAZOLE-TRIMETHOPRIM 56696601689 No Longer Active Rosalie Boyd APRN Active GUAIFENESIN-CODEINE 100-10 MG/5ML SYRP 1-2 tsp PO q6h PRN cough GUAIFENESIN-CODEINE 04576316082 No Longer Active Giovany URBINA Active PREDNISONE 20 MG TABS 1 tablet by mouth twice daily for 2 days, then 1 daily for 2 days PREDNISONE 17658176827 No Longer Active Giovany URBINA Active HYDROCODONE-ACETAMINOPHEN 5-325 MG TABS 1/2 to 1 po q 4 hours prn pain 11/13 HYDROCODONE-ACETAMINOPHEN 01523522062 No Longer Active Rosalie Boyd GLASS BLOWING INSTRUCTOR Active PENICILLIN V POTASSIUM 500 MG TABS 1 TID PENICILLIN V POTASSIUM 47482879779 No Longer Active Andrei Nichols MD Active SEROQUEL 50 MG TABS 1 tablet at HS QUETIAPINE FUMARATE 34552580450 No Longer Active Andrei Nichols MD Active SEROQUEL 100 MG TABS 1 tablet at HS QUETIAPINE FUMARATE 75505438091 No Longer Active Andrei Nichols MD Active TRIAMCINOLONE ACETONIDE 0.1 % CREA apply three times daily prn rash TRIAMCINOLONE ACETONIDE 38268517989 No Longer Active Andrei Nichols MD Active AMOXICILLIN 500 MG TABS take one tab po tid x 10 days AMOXICILLIN 75212283320 No Longer Active Andrei Nichols MD Active CELEXA 20 MG TABS 1and 1/2 tablets by mouth daily CITALOPRAM HYDROBROMIDE 77540272398 No Longer Active Ary Pool PA Active FLEXERIL 10 MG TAB 1/2 to one tablet every 12 hours as needed CYCLOBENZAPRINE HCL 57910223402 No Longer Active Ary Pool PA Active CLONAZEPAM 1 MG TABS take at bedtime CLONAZEPAM 24977819485 No Longer Active Ary Pool PA Active PERMETHRIN 5 % CREA applyhead to toes tonight and then rinse off in 18 hours. repeat at 7 days if needed. PERMETHRIN 93888783692 No Longer Active Ary Pool PA Active AMOXICILLIN 500 MG CAPS 2 po BID x 10 days AMOXICILLIN 95944795748 No Longer Active Andrei Nichols MD Active TYLENOL WITH CODEINE #3 300-30 MG TABS 1 to 2 four times a day as needed for pain ACETAMINOPHEN-CODEINE 14230447961 No Longer Active Reta Hampton Active PREDNISONE 20 MG TAB 2 tabs daily for 5 days, then 1 daily for 5 days PREDNISONE 43985563365 No Longer Active Reta Hampton Active LOMOTIL 2.5-0.025 MG TAB 1 to 2 four times a day as needed for diarrhea 05/28 DIPHENOXYLATE-ATROPINE 18310932391 No Longer Active Reta Hampton Active ALPRAZOLAM 1 MG TABS 1 tab tid ALPRAZOLAM 05589774745 No Longer Active Reta Hampton Active AMOXICILLIN 500 MG CAPS 2 po BID x 10 days AMOXICILLIN 83418193899 No Longer Active Andrei Nichols MD Active AMOXICILLIN 500 MG TABS Take one tab by mouth 3 times daily, morning, afternoon and evening for 7 days. AMOXICILLIN 53294811290 No Longer Active Virginia Alejandra RN Active VICODIN 5-300 MG TABS one tab PO Q 6 hours PRN pain HYDROCODONE-ACETAMINOPHEN 88407472512 No Longer Active Virginia Alejandra RN Active FLAGYL 500 MG TABS four tabs PO one time METRONIDAZOLE 47582859989 No Longer Active Alondra Denton MD Active MELOXICAM 15 MG TABS 1 po q day for pain with food MELOXICAM 14150063447 No Longer Active Alondra Denton MD Active AMOXICILLIN 400 MG/5ML SUSR 5ml po TID x 10 days AMOXICILLIN 99661490001 No Longer Active Jani Marrero MD Active NIX CREME RINSE 1 % LIQD apply as directed tonight, repeat at 7 days PERMETHRIN 57129723822 No Longer Active Corky Mkceon DO Active QVAR 40 MCG/ACT AERS one puff three times a day as needed BECLOMETHASONE DIPROPIONATE 78379998347 No Longer Active Andrei Nichols MD Active METHOCARBAMOL 500 MG TABS 1 to 2 qid prn back spasm METHOCARBAMOL 68545253629 No Longer Active Andrei Nichols MD Active VISTARIL 25 MG CAPS 1-2 tablets three times a day as needed HYDROXYZINE PAMOATE 45804863003 No Longer Active Andrei Nichols MD Active SEROQUEL 100 MG TABS 1/2 TABLET at hs QUETIAPINE FUMARATE 07645146247 No Longer Active Aicha Rizzo RN Active BACTRIM DS 800-160 MG TAB 1 tab by mouth twice daily TRIMETHOPRIM-SULFAMETHOXAZOLE 66611605915 No Longer Active Prisca Lockwood MD PhD Active CYCLOBENZAPRINE HCL 10 MG TABS TAKE 1/2 - 1 TAB EVERY 12 HOURS NEEDED 2010 CYCLOBENZAPRINE HCL 43645375712 No Longer Active Andrei Nichols MD Active CYCLOBENZAPRINE HCL 10 MG TABS TAKE 1/2 - 1 TAB EVERY 12 HOURS NEEDED 2010 CYCLOBENZAPRINE HCL 10 MG TABS 745057 CYCLOBENZAPRINE HCL Inactive SEROQUEL 100 MG TABS 1/2 TABLET at hs SEROQUEL 100 MG TABS 797323 QUETIAPINE FUMARATE Inactive VISTARIL 25 MG CAPS 1-2 tablets three times a day as needed VISTARIL 25 MG CAPS 538997 HYDROXYZINE PAMOATE Inactive METHOCARBAMOL 500 MG TABS 1 to 2 qid prn back spasm METHOCARBAMOL 500 MG TABS 707987 METHOCARBAMOL Inactive QVAR 40 MCG/ACT AERS one puff three times a day as needed QVAR 40 MCG/ACT AERS BECLOMETHASONE DIPROPIONATE Inactive NIX CREME RINSE 1 % LIQD apply as directed carlotta, repeat at 7 days NIX CREME RINSE 1 % LIQD PERMETHRIN Inactive MELOXICAM 15 MG TABS 1 po q day for pain with food MELOXICAM 15 MG TABS 392344 MELOXICAM Inactive ALPRAZOLAM 1 MG TABS 1 tab tid ALPRAZOLAM 1 MG TABS 006273 ALPRAZOLAM Inactive LOMOTIL 2.5-0.025 MG TAB 1 to 2 four times a day as needed for diarrhea 05/28 LOMOTIL 2.5-0.025 MG TAB 1576315 DIPHENOXYLATE-ATROPINE Inactive PREDNISONE 20 MG TAB 2 tabs daily for 5 days, then 1 daily for 5 days PREDNISONE 20 MG TAB 500658 PREDNISONE Inactive TYLENOL WITH CODEINE #3 300-30 MG TABS 1 to 2 four times a day as needed for pain TYLENOL WITH CODEINE #3 300-30 MG TABS ACETAMINOPHEN-CODEINE Inactive PERMETHRIN 5 % CREA applyhead to toes tonight and then rinse off in 18 hours. repeat at 7 days if needed. PERMETHRIN 5 % CREA 105956 PERMETHRIN Inactive CLONAZEPAM 1 MG TABS take at bedtime CLONAZEPAM 1 MG TABS 777801 CLONAZEPAM Inactive FLEXERIL 10 MG TAB 1/2 to one tablet every 12 hours as needed FLEXERIL 10 MG TAB CYCLOBENZAPRINE HCL Inactive CELEXA 20 MG TABS 1and 1/2 tablets by mouth daily CELEXA 20 MG TABS 357255 CITALOPRAM HYDROBROMIDE Inactive AMOXICILLIN 500 MG TABS take one tab po tid x 10 days AMOXICILLIN 500 MG TABS 328146 AMOXICILLIN Inactive TRIAMCINOLONE ACETONIDE 0.1 % CREA apply three times daily prn rash TRIAMCINOLONE ACETONIDE 0.1 % CREA 0703684 TRIAMCINOLONE ACETONIDE Inactive SEROQUEL 100 MG TABS 1 tablet at HS SEROQUEL 100 MG TABS 558534 QUETIAPINE FUMARATE Inactive SEROQUEL 50 MG TABS 1 tablet at HS SEROQUEL 50 MG TABS 528660 QUETIAPINE FUMARATE Inactive HYDROCODONE-ACETAMINOPHEN 5-325 MG TABS 1/2 to 1 po q 4 hours prn pain 11/13 HYDROCODONE-ACETAMINOPHEN 5-325 MG TABS 858693 HYDROCODONE- ACETAMINOPHEN Inactive PREDNISONE 20 MG TABS 1 tablet by mouth twice daily for 2 days, then 1 daily for 2 days PREDNISONE 20 MG TABS 084762 PREDNISONE Inactive GUAIFENESIN-CODEINE 100-10 MG/5ML SYRP 1-2 tsp PO q6h PRN cough GUAIFENESIN-CODEINE 100-10 MG/5ML SYRP 160122 GUAIFENESIN-CODEINE Inactive GUAIFENESIN-CODEINE 100-10 MG/5ML SYRP 1 tsp PO q6h PRN cough GUAIFENESIN-CODEINE 100-10 MG/5ML SYRP 803771 GUAIFENESIN-CODEINE Inactive BACTROBAN 2 % OINTMENT Apply bid to affected area BACTROBAN 2 % OINTMENT 014169 MUPIROCIN Inactive PROMETHAZINE HCL 25 MG TABS take 1 po Q 8 hours prn nausea and vomiting 12/11 PROMETHAZINE HCL 25 MG TABS 072681 PROMETHAZINE HCL Inactive AMOXICILLIN 400 MG/5ML SUSR 6ml three times a day for 10 days AMOXICILLIN 400 MG/5ML SUSR 012332 AMOXICILLIN Inactive LAMISIL AT 1 % CREA apply bid to rash LAMISIL AT 1 % CREA 990206 TERBINAFINE HCL Inactive PROMETHAZINE HCL 25 MG TABS 1 four times a day as needed for nausea/vomiting PROMETHAZINE HCL 25 MG TABS 459737 PROMETHAZINE HCL Inactive GUAIFENESIN-CODEINE 100-10 MG/5ML SYRP 1 tsp PO q6h PRN cough GUAIFENESIN-CODEINE 100-10 MG/5ML SYRP 396814 GUAIFENESIN-CODEINE Inactive KEFLEX 500 MG CAP 1 po qid KEFLEX 500 MG CAP 143879 CEPHALEXIN Inactive GUAIFENESIN-CODEINE 100-10 MG/5ML SYRP 1 tsp PO q6h PRN cough GUAIFENESIN-CODEINE 100-10 MG/5ML SYRP 603926 GUAIFENESIN-CODEINE Inactive TYLENOL WITH CODEINE #3 300-30 MG TABS ONE TABLET FOUR TIMES A DAY NEEDED for pain or cough TYLENOL WITH CODEINE #3 300-30 MG TABS ACETAMINOPHEN-CODEINE Inactive STROMECTOL 3 MG TABS 6 pills by mouth x 1; repeat in 10 days 2012 STROMECTOL 3 MG TABS 045283 IVERMECTIN Inactive LOMOTIL 2.5-0.025 MG TAB 1 to 2 four times a day as needed for diarrhea 01/21 LOMOTIL 2.5-0.025 MG TAB 6382084 DIPHENOXYLATE-ATROPINE Inactive CELEXA 20 MG TABS Take 1.5 tablets daily CELEXA 20 MG TABS 184622 CITALOPRAM HYDROBROMIDE Inactive PERMETHRIN 5 % CREA apply neck to toes tonight and then rinse off in morning. repeat at 7 days PERMETHRIN 5 % CREA 119398 PERMETHRIN Inactive STROMECTOL 3 MG TABS 5 tablets by mouth one time on an empty stomach, may repeat in 2 weeks if needed STROMECTOL 3 MG TABS 351569 IVERMECTIN Inactive BACTRIM DS 800-160 MG TAB 1 tab by mouth twice daily BACTRIM DS 800-160 MG TAB 581192 TRIMETHOPRIM-SULFAMETHOXAZOLE Inactive SEROQUEL 200 MG TABS 1 tablet at bedtime. SEROQUEL 200 MG TABS 137021 QUETIAPINE FUMARATE Inactive CYCLOBENZAPRINE HCL 10 MG TABS 1 three times a day as needed for back spasm CYCLOBENZAPRINE HCL 10 MG TABS 226574 CYCLOBENZAPRINE HCL Inactive HYDROXYZINE HCL 10 MG TABS 1 to 2 three times a day as needed for itching HYDROXYZINE HCL 10 MG TABS 664939 HYDROXYZINE HCL Inactive TESSALON PERLES 100 MG CAP 1 tablet by mouth 3 times daily 01/20 TESSALON PERLES 100 MG CAP 432379 BENZONATATE Inactive CYCLOBENZAPRINE HCL 10 MG TABS 1/2 to 1 tablet by mouth three times daily as needed for muscle spasm/pain CYCLOBENZAPRINE HCL 10 MG TABS 959293 CYCLOBENZAPRINE HCL Inactive CYCLOBENZAPRINE HCL 10 MG TABS 1/2 to 1 tablet every 4 hours CYCLOBENZAPRINE HCL 10 MG TABS 437829 CYCLOBENZAPRINE HCL Inactive LATUDA 20 MG TABS 1 tab at at night with meal LATUDA 20 MG TABS LURASIDONE HCL Inactive IBUPROFEN 600 MG TAB 1 tablet three times a day as needed IBUPROFEN 600 MG TAB 660559 IBUPROFEN Inactive PROAIR HFA 108 (90 BASE) MCG/ACT AERS 2 puffs four times a day as needed 2011 PROAIR HFA 108 (90 BASE) MCG/ACT AERS ALBUTEROL SULFATE Inactive FETZIMA 40 MG ORAL [id number] FETZIMA 40 MG ORAL [id number] LEVOMILNACIPRAN HCL Inactive SEROQUEL 200 MG ORAL TABS Take 1 tablet at hs SEROQUEL 200 MG ORAL TABS 240035 QUETIAPINE FUMARATE Inactive AMOXICILLIN 500 MG TABS 2 tabs twice a day for 10 days AMOXICILLIN 500 MG TABS 530866 AMOXICILLIN Inactive PROMETHAZINE HCL 25 MG TABS 1 four times a day as needed for vomiting PROMETHAZINE HCL 25 MG TABS 437960 PROMETHAZINE HCL Inactive KLONOPIN 1 MG TABS 1 tablet TID KLONOPIN 1 MG TABS 577746 CLONAZEPAM Inactive PROAIR HFA 108 (90 BASE) MCG/ACT AERS 2 puffs four times a day as needed 2015 PROAIR HFA 108 (90 BASE) MCG/ACT AERS ALBUTEROL SULFATE Inactive BACTRIM DS 800-160 MG TAB 1 tab by mouth twice daily BACTRIM DS 800-160 MG TAB 402726 TRIMETHOPRIM-SULFAMETHOXAZOLE Inactive AMOXICILLIN 400 MG/5ML SUSR 5ml po TID x 10 days AMOXICILLIN 400 MG/5ML SUSR 414667 AMOXICILLIN Inactive FLAGYL 500 MG TABS four tabs PO one time FLAGYL 500 MG TABS 291606 METRONIDAZOLE Inactive AMOXICILLIN 500 MG TABS Take one tab by mouth 3 times daily, morning, afternoon and evening for 7 days. AMOXICILLIN 500 MG TABS 538342 AMOXICILLIN Inactive AMOXICILLIN 500 MG CAPS 2 po BID x 10 days AMOXICILLIN 500 MG CAPS 905713 AMOXICILLIN Inactive AMOXICILLIN 500 MG CAPS 2 po BID x 10 days AMOXICILLIN 500 MG CAPS 339396 AMOXICILLIN Inactive PENICILLIN V POTASSIUM 500 MG TABS 1 TID PENICILLIN V POTASSIUM 500 MG TABS 151532 PENICILLIN V POTASSIUM Inactive BACTRIM DS 800-160 MG TABS 1 po BID x 10 days BACTRIM DS 800-160 MG TABS 518921 SULFAMETHOXAZOLE-TRIMETHOPRIM Inactive ZITHROMAX 250 MG TAB 2 po today, then 1 po q days 2-5 ZITHROMAX 250 MG TAB 2643631 AZITHROMYCIN Inactive TAMIFLU 75 MG CAPS 1 bid x 5 days TAMIFLU 75 MG CAPS 590033 OSELTAMIVIR PHOSPHATE Inactive AZITHROMYCIN 250 MG TABS 2 po qd x 1 day, then 1 po qd x 4 days AZITHROMYCIN 250 MG TABS 2548337 AZITHROMYCIN Inactive MEDROL (NISA) 4 MG TABS 6 tabs on day 1, 5 tabs on day 2, 4 tabs on day 3, 3 tabs on day 4, 2 tabs on day 5, 1 tab on day 6 MEDROL ( NISA) 4 MG TABS 263510 METHYLPREDNISOLONE Inactive SUPRAX 400 MG CAPS Take one tablet twice daily for 7 days SUPRAX 400 MG CAPS CEFIXIME Inactive AMITRIPTYLINE HCL 50 MG TAB 1 po q hs for sleep AMITRIPTYLINE HCL 50 MG TAB 573923 AMITRIPTYLINE HCL Inactive ZITHROMAX 250 MG TAB 2 po today, then 1 po q days 2-5 ZITHROMAX 250 MG TAB 9336348 AZITHROMYCIN Inactive Immunizations Vaccine Administration Date Value Standard Description Seasonal influenza vaccine, injectable, containing preservative, for > 3 years old (Afluria, FluLaval, Fluzone, Fluvirin, Fluarix, Agriflu(>=18 yo)) Fluzone (>3 yrs.) [[id number]] Influenza, seasonal, injectable pneumococcal immunization administered Pneumovax 23 [CVX33] pneumococcal polysaccharide vaccine, 23 valent Seasonal influenza vaccine, injectable, containing preservative, for > 3 years old (Afluria, FluLaval, Fluzone, Fluvirin, Fluarix, Agriflu(>=18 yo)) Fluzone (>3 yrs.) [[id number]] Influenza, seasonal, injectable Seasonal influenza vaccine, injectable, containing preservative, for > 3 years old (Afluria, FluLaval, Fluzone, Fluvirin, Fluarix, Agriflu(>=18 yo)) Fluzone (>3 yrs.) [KCF458] Influenza, seasonal, injectable hepatitis B vaccine #1 [...] Measured Encounters Code Encounter Date Provider Facility CPT-38331 Level 3 Est. Patient 16:47:47 CDT Renetta Ryan [facility] CPT-69364 Level 3 Est. Patient 11:04:11 STRONG NITRIC OPERATOR Jani Marrero MD [facility] CPT-08587 Level 3 Est. Patient 12:02:27 STRONG NITRIC OPERATOR Andrei Nichols MD [facility] CPT-76849 Level 3 Est. Patient 12:47:17 STRONG NITRIC OPERATOR Andrei Nichols MD [facility] CPT-06900 Level 3 Est. Patient 14:51:20 STRONG NITRIC OPERATOR Shikha Randolph [facility] CPT-15013 Level 3 Est. Patient 10:42:38 CDT Shikha Randolph [facility] CPT-75051 Level 3 Est. Patient 18:20:39 CDT Prisca Lockwood MD PhD [facility]-11133 Level 3 Est. Patient 16:42:47 STRONG NITRIC OPERATOR Rosalie Boyd [facility] CPT-43651 Level 3 Est. Patient 14:34:36 STRONG NITRIC OPERATOR Rosalie Boyd [facility] CPT-07190 Level 4 Est. Patient 10:23:07 STRONG NITRIC OPERATOR Andrei Nichols MD [facility]-10278 Level 3 Est. Patient 16:47:31 STRONG NITRIC OPERATOR Andrei Nichols MD [facility]-77890 Level 3 Est. Patient 11:59:14 CDT Rosalie [id number] Level 3 Est. Patient 15:30:34 CDT Giovany URBINA [facility]-88156 Level 3 Est. Patient 11:03:03 CDT Rosalie Boyd [facility] CPT-39680 Level 3 Est. Patient 11:08:07 CDT Rosalie Boyd [facility]-05831 Level 3 Est. Patient 14:07:32 CDT Andrei Nichols MD [facility]-54208 Level 3 Est. Patient 17:08:28 CDT Andrei Nichols MD [facility]-00330 Level 3 Est. Patient 13:10:13 CDT Jani Marrero MD [facility]-35185 Level 3 Est. Patient 11:27:12 CDT Jani Marrero MD [facility]-99574 Level 3 Est. Patient 13:44:42 CDT Andrei Nichols MD [facility]-73798 Level 3 Est. Patient 12:34:57 STRONG NITRIC OPERATOR Andrei Nichols MD [facility] CPT-74345 Level 3 Est. Patient 15:30:06 CDT Jani Marrero MD [facility] CPT-43479 Level 3 Est. Patient 21:59:00 CDT Corky Mckeon [facility] CPT-90726 Level 3 Est. Patient 17:12:49 CDT Andrei Nichols MD [facility] CPT-63677 Level 4 Est. Patient 12:27:45 STRONG NITRIC OPERATOR Andrie Nichols MD [facility] CPT-41299 Level 3 Est. Patient 12:15:34 STRONG NITRIC OPERATOR Andrei Nichols MD [facility] Procedures Code Procedure Name Date Entry Date Standard Description CPT-18947 Knee, left, 3V - XRAY USE ONLY 14:53:02 CDT CPT-OV Office Visit 11:36:40 CDT CPT-32671 Administration 2+ single or combination vaccines inc oral 07:50:30 CDT CPT-01813 Administration single or combination vaccine inc oral 07 :50:30 CDT CPT-35680 Pneumovax 07:50:30 CDT CPT-08542 Influenza split virus > age 3 07:50:30 CDT CPT-OV Office Visit 11:49:10 STRONG NITRIC OPERATOR CPT-19923 Nexplanon Removal with Reinsertion 14:02:06 STRONG NITRIC OPERATOR CPT-J7307 Nexplanon (Implant) 14:02:06 STRONG NITRIC OPERATOR CPT-OV Office Visit 14:02:06 STRONG NITRIC OPERATOR CPT-OV Office Visit 11:58:04 STRONG NITRIC OPERATOR CPT-65704 Administration single or combination vaccine inc oral 11 :31:07 CDT CPT-20545 Influenza split virus > age 3 11:31:07 T CPT-92003 Administration single or combination vaccine inc oral 10 :34:13 CDT CPT-00170 Influenza split virus > age 3 10:34:13 CDT
--- OUTSIDE RECORDS SUMMARY | 2017-01-02 18:10 | XMS REPORT | Clinical Summary ---
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
--- OUTSIDE RECORDS SUMMARY | 2017-01-02 18:11 | XMS REPORT | Clinical Summary ---
Author Author Admin, QIE Organization [facility] Address Unknown Phone Unavailable Allergies, Adverse Reactions, [...] advice on contraceptive management AMENORRHEA 626.0 Active Aihca Rizzo RN Absence of menstruation PEDICULUS CAPITIS [...] Sinusitis, frontal, acute 461.1 Resolved Shikha Yokum POWER MACHINE OPERATOR Acute frontal sinusitis Pharyngitis 462 Resolved Shikha Yokum POWER MACHINE OPERATOR Acute pharyngitis Scabies 133.0 Resolved Shikha Yokum POWER MACHINE OPERATOR Scabies Folliculitis 704.8 Resolved Shikha Yokum POWER MACHINE OPERATOR Other specified diseases of hair and hair follicles Cough 786.2 Resolved Andrei Nichols MD Cough Dysuria 788.1 Active Shikhaciro Lockejose SORIANO Dysuria Vomiting 787.03 Active Andrei Nichols [...] Pool PA ECZEMA ICD-692.9 Inactive Shikhaciro Lockeum POWER MACHINE OPERATOR OTITIS MEDIA ICD-382.9 Inactive Ary Pool PA 09/16 PHARYNGITIS ICD-462 Inactive Andrei Nichols MD UNSPECIFIED DISORDER TEETH&SUPPORTING STRUCTURES ICD-525.9 12/29 Inactive Shikha Randolph POWER MACHINE OPERATOR PHARYNGITIS-ACUTE ICD-462 Inactive Rosalie Boyd POWER MACHINE OPERATOR DIARRHEA ICD-787.91 Inactive Andrei Nichols MD SHOULDER PAIN ICD-719.41 Inactive Shikha Randolph POWER MACHINE OPERATOR NAUSEA AND VOMITING ICD-787.01 Inactive Andrei Nichols [...] PhD Dental caries ICD-521.00 Inactive Shikha Yokum POWER MACHINE OPERATOR Tooth pain ICD-525.9 Inactive Prisca Lockwood MD PhD Head lice ICD-132.0 Inactive Prisca Lockwood MD PhD Upper respiratory infection ICD-465.9 Inactive Prisca Lockwood MD PhD Sinusitis, frontal, acute ICD-461.1 Inactive Shikha Yokum POWER MACHINE OPERATOR Pharyngitis ICD-462 Inactive Shikha Yokum POWER MACHINE OPERATOR 2013 Scabies ICD-133.0 Inactive Shikha Yokum POWER MACHINE OPERATOR 12/29 Folliculitis ICD-704.8 Inactive Shikha Yokum POWER MACHINE OPERATOR Cough ICD-786.2 Inactive Andrei Nichols MD SINUSITIS, ACUTE ICD-461.9 Inactive Jani Marrero MD Medication List Medication Instructions Start Date Stop Date Generic Name NDC Status Provider Patient Instruction ZIAC 2.5-6.25 MG TAB 1 tablet daily for high blood pressure BISOPROLOL-HCTZ [id number] Active Corky Mckeon DO Active MELOXICAM 15 MG TABS 1 daily for knee pain MELOXICAM 05656726867 Active Renetta Ryan APRN Active CYCLOBENZAPRINE HCL 10 MG TABS 1 three times a day as needed for muscle spasm CYCLOBENZAPRINE HCL 58431361913 Active Renetta Ryan APRN Active BUSPIRONE HCL 10 MG ORAL TABS 2 TABS PO BID BUSPIRONE HCL 29792774078 Active Corky Mckeon DO Active AMITRIPTYLINE HCL 75 MG ORAL TABS 1 TAB Q HS AMITRIPTYLINE HCL 91375679670 Active Renetta Ryan APRN Active PROAIR HFA 108 (90 BASE) MCG/ACT AERS 2 puffs four times a day as needed 2015 ALBUTEROL SULFATE 24509681601 No Longer Active Renetta Ryan APRN Active KLONOPIN 1 MG TABS 1 tablet TID CLONAZEPAM 90741592020 No Longer Active Renetta Ryan APRN Active ZITHROMAX 250 MG TAB 2 po today, then 1 po q days 2-5 AZITHROMYCIN 05266563528 No Longer Active Jani Marrero MD Active IBUPROFEN 800 MG TABS 1 tab PO TID IBUPROFEN 86084729739 Active Jani Marrero MD Active WELLBUTRIN SR 100 MG ORAL [id number] 1 TAB PO DAILY BUPROPION HCL 14611008076 Active Jani Marrero MD Active AMITRIPTYLINE HCL 50 MG TAB 1 po q hs for sleep AMITRIPTYLINE HCL 80942420750 No Longer Active Jani Marrero MD Active PROMETHAZINE HCL 25 MG TABS 1 four times a day as needed for vomiting PROMETHAZINE HCL 12196779037 No Longer Active Jani Marrero MD Active AMOXICILLIN 500 MG TABS 2 tabs twice a day for 10 days AMOXICILLIN 52959327752 No Longer Active Jani Marrero MD Active SEROQUEL 200 MG ORAL TABS Take 1 tablet at hs QUETIAPINE FUMARATE 99983446187 No Longer Active Jani Marrero MD Active FETZIMA 40 MG ORAL [id number] LEVOMILNACIPRAN HCL 57070985405 No Longer Active Jani Marrero MD Active PROAIR HFA 108 (90 BASE) MCG/ACT AERS 2 puffs four times a day as needed 2011 ALBUTEROL SULFATE 87558511113 No Longer Active Alondra Denton MD Active IBUPROFEN 600 MG TAB 1 tablet three times a day as needed IBUPROFEN 09398032253 No Longer Active Alondra Denton MD Active LATUDA 20 MG TABS 1 tab at at night with meal LURASIDONE HCL 13856581437 No Longer Active Alondra Denton MD Active CYCLOBENZAPRINE HCL 10 MG TABS 1/2 to 1 tablet every 4 hours CYCLOBENZAPRINE HCL 02228859169 No Longer Active Alondra Denton MD Active CYCLOBENZAPRINE HCL 10 MG TABS 1/2 to 1 tablet by mouth three times daily as needed for muscle spasm/pain CYCLOBENZAPRINE HCL 67168598668 No Longer Active Alondra eDnton MD Active SUPRAX 400 MG CAPS Take one tablet twice daily for 7 days CEFIXIME 08213759123 No Longer Active Shikha Yokum POWER MACHINE OPERATOR Active TESSALON PERLES 100 MG CAP 1 tablet by mouth 3 times daily 01/20 BENZONATATE 13987244975 No Longer Active Shikha Yokum POWER MACHINE OPERATOR Active HYDROXYZINE HCL 10 MG TABS 1 to 2 three times a day as needed for itching HYDROXYZINE HCL 78121634234 No Longer Active Shikha Yokum POWER MACHINE OPERATOR Active CYCLOBENZAPRINE HCL 10 MG TABS 1 three times a day as needed for back spasm CYCLOBENZAPRINE HCL 05896076852 No Longer Active Shikha Yokum POWER MACHINE OPERATOR Active SEROQUEL 200 MG TABS 1 tablet at bedtime. QUETIAPINE FUMARATE 05264919970 No Longer Active Shikha Yokum POWER MACHINE OPERATOR Active BACTRIM DS 800-160 MG TAB 1 tab by mouth twice daily TRIMETHOPRIM-SULFAMETHOXAZOLE 47076256916 No Longer Active Shikha Yokjose SORIANO Active STROMECTOL 3 MG TABS 5 tablets by mouth one time on an empty stomach, may repeat in 2 weeks if needed IVERMECTIN 01556468601 No Longer Active Shikha Yokum POWER MACHINE OPERATOR Active PERMETHRIN 5 % CREA apply neck to toes tonight and then rinse off in morning. repeat at 7 days PERMETHRIN 83096145235 No Longer Active Andrei Nichols MD Active MEDROL (NISA) 4 MG TABS 6 tabs on day 1, 5 tabs on day 2, 4 tabs on day 3, 3 tabs on day 4, 2 tabs on day 5, 1 tab on day 6 METHYLPREDNISOLONE 84248719781 No Longer Active Prisca Lockwood MD PhD Active AZITHROMYCIN 250 MG TABS 2 po qd x 1 day, then 1 po qd x 4 days AZITHROMYCIN 24260951560 No Longer Active Prisca Lockwood MD PhD Active CELEXA 20 MG TABS Take 1.5 tablets daily CITALOPRAM HYDROBROMIDE 41862355660 No Longer Active Prisca Lockwood MD PhD Active LOMOTIL 2.5-0.025 MG TAB 1 to 2 four times a day as needed for diarrhea 01/21 DIPHENOXYLATE-ATROPINE 80670021298 No Longer Active Prisca Lockwood MD PhD Active TAMIFLU 75 MG CAPS 1 bid x 5 days OSELTAMIVIR PHOSPHATE 74312633931 No Longer Active Rosalie Boyd APRN Active ZITHROMAX 250 MG TAB 2 po today, then 1 po q days 2-5 AZITHROMYCIN 86193997064 No Longer Active Rosalie Boyd APRN Active STROMECTOL 3 MG TABS 6 pills by mouth x 1; repeat in 10 days 2012 IVERMECTIN 94242951894 No Longer Active Rosalie Boyd APRN Active TYLENOL WITH CODEINE #3 300-30 MG TABS ONE TABLET FOUR TIMES A DAY NEEDED for pain or cough ACETAMINOPHEN-CODEINE 32355847253 No Longer Active Rosalie Boyd APRN Active GUAIFENESIN-CODEINE 100-10 MG/5ML SYRP 1 tsp PO q6h PRN cough GUAIFENESIN-CODEINE 50575848238 No Longer Active Rosalie Boyd APRN Active KEFLEX 500 MG CAP 1 po qid CEPHALEXIN 05384647659 No Longer Active Rosalie Boyd APRN Active GUAIFENESIN-CODEINE 100-10 MG/5ML SYRP 1 tsp PO q6h PRN cough GUAIFENESIN-CODEINE 92066785405 No Longer Active Rosalie Boyd APRN Active PROMETHAZINE HCL 25 MG TABS 1 four times a day as needed for nausea/vomiting PROMETHAZINE HCL 47795994497 No Longer Active Rosalie Boyd APRN Active LAMISIL AT 1 % CREA apply bid to rash TERBINAFINE HCL 54942623756 No Longer Active Andrei Nichols MD Active AMOXICILLIN 400 MG/5ML SUSR 6ml three times a day for 10 days AMOXICILLIN 84058082189 No Longer Active Andrei Nichols MD Active PROMETHAZINE HCL 25 MG TABS take 1 po Q 8 hours prn nausea and vomiting 12/11 PROMETHAZINE HCL 37816101113 No Longer Active Andrei Nichols MD Active BACTROBAN 2 % OINTMENT Apply bid to affected area MUPIROCIN 04771499983 No Longer Active Andrei Nichols MD Active GUAIFENESIN-CODEINE 100-10 MG/5ML SYRP 1 tsp PO q6h PRN cough GUAIFENESIN-CODEINE 10662855173 No Longer Active Andrei Nichols MD Active BACTRIM DS 800-160 MG TABS 1 po BID x 10 days SULFAMETHOXAZOLE-TRIMETHOPRIM 99520773696 No Longer Active Rosalie Boyd APRN Active GUAIFENESIN-CODEINE 100-10 MG/5ML SYRP 1-2 tsp PO q6h PRN cough GUAIFENESIN-CODEINE 83900692929 No Longer Active Giovany URBINA Active PREDNISONE 20 MG TABS 1 tablet by mouth twice daily for 2 days, then 1 daily for 2 days PREDNISONE 73824500681 No Longer Active Giovany URBINA Active HYDROCODONE-ACETAMINOPHEN 5-325 MG TABS 1/2 to 1 po q 4 hours prn pain 11/13 HYDROCODONE-ACETAMINOPHEN 32757466492 No Longer Active Rosalie Boyd APRN Active PENICILLIN V POTASSIUM 500 MG TABS 1 TID PENICILLIN V POTASSIUM 49766694829 No Longer Active Andrei Nichols MD Active SEROQUEL 50 MG TABS 1 tablet at HS QUETIAPINE FUMARATE 12788301502 No Longer Active Andrei Nichols MD Active SEROQUEL 100 MG TABS 1 tablet at HS QUETIAPINE FUMARATE 86755968505 No Longer Active Andrei Nichols MD Active TRIAMCINOLONE ACETONIDE 0.1 % CREA apply three times daily prn rash TRIAMCINOLONE ACETONIDE 79952519245 No Longer Active Andrei Nichols MD Active AMOXICILLIN 500 MG TABS take one tab po tid x 10 days AMOXICILLIN 62255642227 No Longer Active Andrei Nichols MD Active CELEXA 20 MG TABS 1and 1/2 tablets by mouth daily CITALOPRAM HYDROBROMIDE 09559115398 No Longer Active Ary URBINA Active FLEXERIL 10 MG TAB 1/2 to one tablet every 12 hours as needed CYCLOBENZAPRINE HCL 44184174558 No Longer Active Ary URBINA Active CLONAZEPAM 1 MG TABS take at bedtime CLONAZEPAM 76106915879 No Longer Active Ary URBINA Active PERMETHRIN 5 % CREA applyhead to toes tonight and then rinse off in 18 hours. repeat at 7 days if needed. PERMETHRIN 56470624921 No Longer Active Ary URBINA Active AMOXICILLIN 500 MG CAPS 2 po BID x 10 days AMOXICILLIN 24788209507 No Longer Active Andrei Nichols MD Active TYLENOL WITH CODEINE #3 300-30 MG TABS 1 to 2 four times a day as needed for pain ACETAMINOPHEN-CODEINE 52293682779 No Longer Active Reta Acostaklin Active PREDNISONE 20 MG TAB 2 tabs daily for 5 days, then 1 daily for 5 days PREDNISONE 02454222607 No Longer Active Reta Memo Active LOMOTIL 2.5-0.025 MG TAB 1 to 2 four times a day as needed for diarrhea 05/28 DIPHENOXYLATE-ATROPINE 09456145645 No Longer Active Reta Memo Active ALPRAZOLAM 1 MG TABS 1 tab tid ALPRAZOLAM 07861884049 No Longer Active Reta Hampton Active AMOXICILLIN 500 MG CAPS 2 po BID x 10 days AMOXICILLIN 63568712701 No Longer Active Andrei Nichols MD Active AMOXICILLIN 500 MG TABS Take one tab by mouth 3 times daily, morning, afternoon and evening for 7 days. AMOXICILLIN 42575860127 No Longer Active Virginia Alejandra RN Active VICODIN 5-300 MG TABS one tab PO Q 6 hours PRN pain HYDROCODONE-ACETAMINOPHEN 91637299050 No Longer Active Virginia Alejandra RN Active FLAGYL 500 MG TABS four tabs PO one time METRONIDAZOLE 51868109494 No Longer Active Alondra Denton MD Active MELOXICAM 15 MG TABS 1 po q day for pain with food MELOXICAM 34401350747 No Longer Active Alondra Denton MD Active AMOXICILLIN 400 MG/5ML SUSR 5ml po TID x 10 days AMOXICILLIN 71982723594 No Longer Active Jani Marrero MD Active NIX CREME RINSE 1 % LIQD apply as directed tonbethany, repeat at 7 days PERMETHRIN 14155798832 No Longer Active Corky Mckeon DO Active QVAR 40 MCG/ACT AERS one puff three times a day as needed BECLOMETHASONE DIPROPIONATE 22449168149 No Longer Active Andrei Nichols MD Active METHOCARBAMOL 500 MG TABS 1 to 2 qid prn back spasm METHOCARBAMOL 22752077527 No Longer Active Andrei Nichols MD Active VISTARIL 25 MG CAPS 1-2 tablets three times a day as needed HYDROXYZINE PAMOATE 39493081801 No Longer Active Andrei Nichols MD Active SEROQUEL 100 MG TABS 1/2 TABLET at hs QUETIAPINE FUMARATE 02291230751 No Longer Active Aicha Rizzo RN Active BACTRIM DS 800-160 MG TAB 1 tab by mouth twice daily TRIMETHOPRIM-SULFAMETHOXAZOLE 16047390756 No Longer Active Prsica Lockwood MD PhD Active CYCLOBENZAPRINE HCL 10 MG TABS TAKE 1/2 - 1 TAB EVERY 12 HOURS NEEDED 2010 CYCLOBENZAPRINE HCL 81166726340 No Longer Active Andrei Nichols MD Active CYCLOBENZAPRINE HCL 10 MG TABS TAKE 1/2 - 1 TAB EVERY 12 HOURS NEEDED 2010 CYCLOBENZAPRINE HCL 10 MG TABS 808651 CYCLOBENZAPRINE HCL Inactive SEROQUEL 100 MG TABS 1/2 TABLET at hs SEROQUEL 100 MG TABS 407956 QUETIAPINE FUMARATE Inactive VISTARIL 25 MG CAPS 1-2 tablets three times a day as needed VISTARIL 25 MG CAPS 947024 HYDROXYZINE PAMOATE Inactive METHOCARBAMOL 500 MG TABS 1 to 2 qid prn back spasm METHOCARBAMOL 500 MG TABS 037821 METHOCARBAMOL Inactive QVAR 40 MCG/ACT AERS one puff three times a day as needed QVAR 40 MCG/ACT AERS BECLOMETHASONE DIPROPIONATE Inactive NIX CREME RINSE 1 % LIQD apply as directed tonight, repeat at 7 days NIX CREME RINSE 1 % LIQD PERMETHRIN Inactive MELOXICAM 15 MG TABS 1 po q day for pain with food MELOXICAM 15 MG TABS 477132 MELOXICAM Inactive ALPRAZOLAM 1 MG TABS 1 tab tid ALPRAZOLAM 1 MG TABS 027201 ALPRAZOLAM Inactive LOMOTIL 2.5-0.025 MG TAB 1 to 2 four times a day as needed for diarrhea 05/28 LOMOTIL 2.5-0.025 MG TAB 9319392 DIPHENOXYLATE-ATROPINE Inactive PREDNISONE 20 MG TAB 2 tabs daily for 5 days, then 1 daily for 5 days PREDNISONE 20 MG TAB 117269 PREDNISONE Inactive TYLENOL WITH CODEINE #3 300-30 MG TABS 1 to 2 four times a day as needed for pain TYLENOL WITH CODEINE #3 300-30 MG TABS ACETAMINOPHEN-CODEINE Inactive PERMETHRIN 5 % CREA applyhead to toes tonight and then rinse off in 18 hours. repeat at 7 days if needed. PERMETHRIN 5 % CREA 134724 PERMETHRIN Inactive CLONAZEPAM 1 MG TABS take at bedtime CLONAZEPAM 1 MG TABS 067819 CLONAZEPAM Inactive FLEXERIL 10 MG TAB 1/2 to one tablet every 12 hours as needed FLEXERIL 10 MG TAB CYCLOBENZAPRINE HCL Inactive CELEXA 20 MG TABS 1and 1/2 tablets by mouth daily CELEXA 20 MG TABS 827241 CITALOPRAM HYDROBROMIDE Inactive AMOXICILLIN 500 MG TABS take one tab po tid x 10 days AMOXICILLIN 500 MG TABS 176945 AMOXICILLIN Inactive TRIAMCINOLONE ACETONIDE 0.1 % CREA apply three times daily prn rash TRIAMCINOLONE ACETONIDE 0.1 % CREA 2142106 TRIAMCINOLONE ACETONIDE Inactive SEROQUEL 100 MG TABS 1 tablet at HS SEROQUEL 100 MG TABS 111090 QUETIAPINE FUMARATE Inactive SEROQUEL 50 MG TABS 1 tablet at HS SEROQUEL 50 MG TABS 016317 QUETIAPINE FUMARATE Inactive HYDROCODONE-ACETAMINOPHEN 5-325 MG TABS 1/2 to 1 po q 4 hours prn pain 11/13 HYDROCODONE-ACETAMINOPHEN 5-325 MG TABS 556316 HYDROCODONE- ACETAMINOPHEN Inactive PREDNISONE 20 MG TABS 1 tablet by mouth twice daily for 2 days, then 1 daily for 2 days PREDNISONE 20 MG TABS 590941 PREDNISONE Inactive GUAIFENESIN-CODEINE 100-10 MG/5ML SYRP 1-2 tsp PO q6h PRN cough GUAIFENESIN-CODEINE 100-10 MG/5ML SYRP 944778 GUAIFENESIN-CODEINE Inactive GUAIFENESIN-CODEINE 100-10 MG/5ML SYRP 1 tsp PO q6h PRN cough GUAIFENESIN-CODEINE 100-10 MG/5ML SYRP 198610 GUAIFENESIN-CODEINE Inactive BACTROBAN 2 % OINTMENT Apply bid to affected area BACTROBAN 2 % OINTMENT 057368 MUPIROCIN Inactive PROMETHAZINE HCL 25 MG TABS take 1 po Q 8 hours prn nausea and vomiting 12/11 PROMETHAZINE HCL 25 MG TABS 292875 PROMETHAZINE HCL Inactive AMOXICILLIN 400 MG/5ML SUSR 6ml three times a day for 10 days AMOXICILLIN 400 MG/5ML SUSR 529456 AMOXICILLIN Inactive LAMISIL AT 1 % CREA apply bid to rash LAMISIL AT 1 % CREA 334161 TERBINAFINE HCL Inactive PROMETHAZINE HCL 25 MG TABS 1 four times a day as needed for nausea/vomiting PROMETHAZINE HCL 25 MG TABS 968134 PROMETHAZINE HCL Inactive GUAIFENESIN-CODEINE 100-10 MG/5ML SYRP 1 tsp PO q6h PRN cough GUAIFENESIN-CODEINE 100-10 MG/5ML SYRP 618818 GUAIFENESIN-CODEINE Inactive KEFLEX 500 MG CAP 1 po qid KEFLEX 500 MG CAP 702701 CEPHALEXIN Inactive GUAIFENESIN-CODEINE 100-10 MG/5ML SYRP 1 tsp PO q6h PRN cough GUAIFENESIN-CODEINE 100-10 MG/5ML SYRP 134737 GUAIFENESIN-CODEINE Inactive TYLENOL WITH CODEINE #3 300-30 MG TABS ONE TABLET FOUR TIMES A DAY NEEDED for pain or cough TYLENOL WITH CODEINE #3 300-30 MG TABS ACETAMINOPHEN-CODEINE Inactive STROMECTOL 3 MG TABS 6 pills by mouth x 1; repeat in 10 days 2012 STROMECTOL 3 MG TABS 244077 IVERMECTIN Inactive LOMOTIL 2.5-0.025 MG TAB 1 to 2 four times a day as needed for diarrhea 01/21 LOMOTIL 2.5-0.025 MG TAB 4135307 DIPHENOXYLATE-ATROPINE Inactive CELEXA 20 MG TABS Take 1.5 tablets daily CELEXA 20 MG TABS 866768 CITALOPRAM HYDROBROMIDE Inactive PERMETHRIN 5 % CREA apply neck to toes tonight and then rinse off in morning. repeat at 7 days PERMETHRIN 5 % CREA 076237 PERMETHRIN Inactive STROMECTOL 3 MG TABS 5 tablets by mouth one time on an empty stomach, may repeat in 2 weeks if needed STROMECTOL 3 MG TABS 017976 IVERMECTIN Inactive BACTRIM DS 800-160 MG TAB 1 tab by mouth twice daily BACTRIM DS 800-160 MG TAB 290103 TRIMETHOPRIM-SULFAMETHOXAZOLE Inactive SEROQUEL 200 MG TABS 1 tablet at bedtime. SEROQUEL 200 MG TABS 565313 QUETIAPINE FUMARATE Inactive CYCLOBENZAPRINE HCL 10 MG TABS 1 three times a day as needed for back spasm CYCLOBENZAPRINE HCL 10 MG TABS 544772 CYCLOBENZAPRINE HCL Inactive HYDROXYZINE HCL 10 MG TABS 1 to 2 three times a day as needed for itching HYDROXYZINE HCL 10 MG TABS 564652 HYDROXYZINE HCL Inactive TESSALON PERLES 100 MG CAP 1 tablet by mouth 3 times daily 01/20 TESSALON PERLES 100 MG CAP 597700 BENZONATATE Inactive CYCLOBENZAPRINE HCL 10 MG TABS 1/2 to 1 tablet by mouth three times daily as needed for muscle spasm/pain CYCLOBENZAPRINE HCL 10 MG TABS 601227 CYCLOBENZAPRINE HCL Inactive CYCLOBENZAPRINE HCL 10 MG TABS 1/2 to 1 tablet every 4 hours CYCLOBENZAPRINE HCL 10 MG TABS 542520 CYCLOBENZAPRINE HCL Inactive LATUDA 20 MG TABS 1 tab at at night with meal LATUDA 20 MG TABS LURASIDONE HCL Inactive IBUPROFEN 600 MG TAB 1 tablet three times a day as needed IBUPROFEN 600 MG TAB 634254 IBUPROFEN Inactive PROAIR HFA 108 (90 BASE) MCG/ACT AERS 2 puffs four times a day as needed 2011 PROAIR HFA 108 (90 BASE) MCG/ACT AERS ALBUTEROL SULFATE Inactive FETZIMA 40 MG ORAL [id number] FETZIMA 40 MG ORAL [id number] LEVOMILNACIPRAN HCL Inactive SEROQUEL 200 MG ORAL TABS Take 1 tablet at hs SEROQUEL 200 MG ORAL TABS 590163 QUETIAPINE FUMARATE Inactive AMOXICILLIN 500 MG TABS 2 tabs twice a day for 10 days AMOXICILLIN 500 MG TABS 517820 AMOXICILLIN Inactive PROMETHAZINE HCL 25 MG TABS 1 four times a day as needed for vomiting PROMETHAZINE HCL 25 MG TABS 359195 PROMETHAZINE HCL Inactive KLONOPIN 1 MG TABS 1 tablet TID KLONOPIN 1 MG TABS 716435 CLONAZEPAM Inactive PROAIR HFA 108 (90 BASE) MCG/ACT AERS 2 puffs four times a day as needed 2015 PROAIR HFA 108 (90 BASE) MCG/ACT AERS ALBUTEROL SULFATE Inactive BACTRIM DS 800-160 MG TAB 1 tab by mouth twice daily BACTRIM DS 800-160 MG TAB 211757 TRIMETHOPRIM-SULFAMETHOXAZOLE Inactive AMOXICILLIN 400 MG/5ML SUSR 5ml po TID x 10 days AMOXICILLIN 400 MG/5ML SUSR 470319 AMOXICILLIN Inactive FLAGYL 500 MG TABS four tabs PO one time FLAGYL 500 MG TABS 665845 METRONIDAZOLE Inactive AMOXICILLIN 500 MG TABS Take one tab by mouth 3 times daily, morning, afternoon and evening for 7 days. AMOXICILLIN 500 MG TABS 134377 AMOXICILLIN Inactive AMOXICILLIN 500 MG CAPS 2 po BID x 10 days AMOXICILLIN 500 MG CAPS 924021 AMOXICILLIN Inactive AMOXICILLIN 500 MG CAPS 2 po BID x 10 days AMOXICILLIN 500 MG CAPS 860836 AMOXICILLIN Inactive PENICILLIN V POTASSIUM 500 MG TABS 1 TID PENICILLIN V POTASSIUM 500 MG TABS 000316 PENICILLIN V POTASSIUM Inactive BACTRIM DS 800-160 MG TABS 1 po BID x 10 days BACTRIM DS 800-160 MG TABS 942041 SULFAMETHOXAZOLE-TRIMETHOPRIM Inactive ZITHROMAX 250 MG TAB 2 po today, then 1 po q days 2-5 ZITHROMAX 250 MG TAB 9181787 AZITHROMYCIN Inactive TAMIFLU 75 MG CAPS 1 bid x 5 days TAMIFLU 75 MG CAPS 404484 OSELTAMIVIR PHOSPHATE Inactive AZITHROMYCIN 250 MG TABS 2 po qd x 1 day, then 1 po qd x 4 days AZITHROMYCIN 250 MG TABS 6659013 AZITHROMYCIN Inactive MEDROL (NISA) 4 MG TABS 6 tabs on day 1, 5 tabs on day 2, 4 tabs on day 3, 3 tabs on day 4, 2 tabs on day 5, 1 tab on day 6 MEDROL ( NISA) 4 MG TABS 413055 METHYLPREDNISOLONE Inactive SUPRAX 400 MG CAPS Take one tablet twice daily for 7 days SUPRAX 400 MG CAPS CEFIXIME Inactive AMITRIPTYLINE HCL 50 MG TAB 1 po q hs for sleep AMITRIPTYLINE HCL 50 MG TAB 411060 AMITRIPTYLINE HCL Inactive ZITHROMAX 250 MG TAB 2 po today, then 1 po q days 2-5 ZITHROMAX 250 MG TAB 7629360 AZITHROMYCIN Inactive Immunizations Vaccine Administration Date Value Standard Description Seasonal influenza vaccine, injectable, containing preservative, for > 3 years old (Afluria, FluLaval, Fluzone, Fluvirin, Fluarix, Agriflu(>=18 yo)) Fluzone (>3 yrs.) [TCJ309] Influenza, seasonal, injectable pneumococcal immunization administered Pneumovax 23 [CVX33] pneumococcal polysaccharide vaccine, 23 valent Seasonal influenza vaccine, injectable, containing preservative, for > 3 years old (Afluria, FluLaval, Fluzone, Fluvirin, Fluarix, Agriflu(>=18 yo)) Fluzone (>3 yrs.) [AMI160] Influenza, seasonal, injectable Seasonal influenza vaccine, injectable, containing preservative, for > 3 years old (Afluria, FluLaval, Fluzone, Fluvirin, Fluarix, Agriflu(>=18 yo)) Fluzone (>3 yrs.) [VZI498] Influenza, seasonal, injectable hepatitis B vaccine #1 [...] Panel - Chemistry sodium, serum 144 mmol/L 873-516 0761/06/08 potassium, serum 4.3 mmol/L 3.5-5.2 chloride, serum 104 mmol/L 98-107 carbon dioxide, venous blood 28.2 mmol/L 21.0-32.0 blood glucose 86 mg/dL 65-110 calcium, serum 9.7 mg/dL 8.5-10.1 urea nitrogen, blood 13 mg/dL 7-18 creatinine, serum 0.66 mg/dL 0.55-1.30 Lab Report: [id number] - Chemistry hemoglobin A1C, blood, as % of total hemoglobin 5.3 % 4.3-6.0 Encounters Code Encounter Date Provider Facility CPT-37236 Level 4 Est. Patient 14:18:58 CDT Corky Mckeon DO [facility] CPT-85929 Level 3 Est. Patient 16:47:47 CDT Renetta Ryan [facility] CPT-58623 Level 3 Est. Patient 11:04:11 BATTERY WRECKER OPERATOR Jani Marrero MD [facility] CPT-88012 Level 3 Est. Patient 12:02:27 BATTERY WRECKER OPERATOR Andrei Nichols MD [facility] CPT-03742 Level 3 Est. Patient 12:47:17 BATTERY WRECKER OPERATOR Andrei Nichols MD [facility] CPT-24823 Level 3 Est. Patient 14:51:20 BATTERY WRECKER OPERATOR Shikha Randolph [facility] CPT-57221 Level 3 Est. Patient 10:42:38 CDT Shikha Randolph [facility] CPT-32956 Level 3 Est. Patient 18:20:39 CDT Prisca Lockwood MD PhD [facility]-54390 Level 3 Est. Patient 16:42:47 BATTERY WRECKER OPERATOR Rosalie Boyd [facility] CPT-24895 Level 3 Est. Patient 14:34:36 BATTERY WRECKER OPERATOR Rosalie Boyd [facility] CPT-17453 Level 4 Est. Patient 10:23:07 BATTERY WRECKER OPERATOR Andrei Nichols MD [facility]-56037 Level 3 Est. Patient 16:47:31 BATTERY WRECKER OPERATOR Andrei Nichols MD [facility]-27175 Level 3 Est. Patient 11:59:14 CDT Rosalie Boyd [facility]-13644 Level 3 Est. Patient 15:30:34 CDT Giovany URBINA [facility]-82535 Level 3 Est. Patient 11:03:03 CDT Rosalie Boyd [facility]-51569 Level 3 Est. Patient 11:08:07 CDT Rosalie Boyd [facility] CPT-59990 Level 3 Est. Patient 14:07:32 CDT Andrei Nichols MD [facility]-80820 Level 3 Est. Patient 17:08:28 CDT Andrei Nichols MD [facility]-30061 Level 3 Est. Patient 13:10:13 CDT Jani Marrero MD [facility]-94275 Level 3 Est. Patient 11:27:12 CDT Jani Marrero MD [facility]-04172 Level 3 Est. Patient 13:44:42 CDT Andrei Nichols MD [facility]-63914 Level 3 Est. Patient 12:34:57 BATTERY WRECKER OPERATOR Andrei Nichols MD [facility]-35489 Level 3 Est. Patient 15:30:06 CDT Jani Marrero MD [facility] CPT-74924 Level 3 Est. Patient 21:59:00 CDT Corky Mckeon DO [facility] CPT-48716 Level 3 Est. Patient 17:12:49 CDT Andrei Nichols MD [facility] CPT-69863 Level 4 Est. 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 CPT-74484 Level 3 Est. 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
--- OUTSIDE RECORDS SUMMARY | 2017-01-02 18:13 | XMS REPORT | Clinical Summary ---
Author Author Admin, E Organization [facility] [employer] Address Unknown Phone Unavailable Allergies, Adverse Reactions, [...] PhD Diarrhea Dental caries 521.00 Resolved Shikha Lockeum BO Dental caries, unspecified Tooth pain 525.9 Resolved Prisca Lockwood MD PhD Unspecified disorder of the teeth and supporting structures Head lice 132.0 Resolved Prisca Lockwood MD PhD Pediculus capitis [head louse] Upper respiratory infection 465.9 Resolved Prisca Lockwood MD PhD Acute upper respiratory infections of unspecified site Sinusitis, frontal, acute 461.1 Resolved Shikha Yokum DREDGE PIPE OPERATOR Acute frontal sinusitis Pharyngitis 462 Resolved Shikha Yokum DREDGE PIPE OPERATOR Acute pharyngitis Scabies 133.0 Resolved Shikha Yokum DREDGE PIPE OPERATOR Scabies Folliculitis 704.8 Resolved Shikha Yokum DREDGE PIPE OPERATOR Other specified diseases of hair and hair follicles Cough 786.2 Resolved Andrei Nichols MD Cough Dysuria 788.1 Active Shikhaciro Lockejose SORIANO Dysuria Vomiting 787.03 Active Andrei Nichols MD Vomiting alone Pharyngitis 462 Active Adnrei Nichols MD Acute pharyngitis SINUSITIS, ACUTE 461.9 [...] Pool PA ECZEMA ICD-692.9 Inactive Shikhaciro Lockeum DREDGE PIPE OPERATOR OTITIS MEDIA ICD-382.9 Inactive Ary Pool PA 09/16 PHARYNGITIS ICD-462 Inactive Andrei Nichols MD UNSPECIFIED DISORDER TEETH&SUPPORTING STRUCTURES ICD-525.9 12/29 Inactive Shikha Randolph DREDGE PIPE OPERATOR PHARYNGITIS-ACUTE ICD-462 Inactive Rosalie Boyd DREDGE PIPE OPERATOR DIARRHEA ICD-787.91 Inactive Andrei Nichols MD SHOULDER PAIN ICD-719.41 Inactive Shikha Randolph DREDGE PIPE OPERATOR NAUSEA AND VOMITING ICD-787.01 Inactive Andrei [...] MD PhD Diarrhea, acute ICD-787.91 Inactive Prisca Locwkood MD PhD Dental caries ICD-521.00 Inactive Shikha Yokum DREDGE PIPE OPERATOR Tooth pain ICD-525.9 Inactive Prisca Lockwood MD PhD Head lice ICD-132.0 Inactive Prisca Lockwood MD PhD Upper respiratory infection ICD-465.9 Inactive Prisca Lockwood MD PhD Sinusitis, frontal, acute ICD-461.1 Inactive Shikha Yokum DREDGE PIPE OPERATOR Pharyngitis ICD-462 Inactive Shikha Yokum DREDGE PIPE OPERATOR 2013 Scabies ICD-133.0 Inactive Shikha Yokum DREDGE PIPE OPERATOR 12/29 Folliculitis ICD-704.8 Inactive Shikha Yokum DREDGE PIPE OPERATOR Cough ICD-786.2 Inactive Andrei Nichols MD SINUSITIS, ACUTE ICD-461.9 Inactive Jani Marrero MD Medication List Medication Instructions Start Date Stop Date Generic Name NDC Status Provider Patient Instruction ZIAC 2.5-6.25 MG TAB 1 tablet daily for high blood pressure BISOPROLOL-HCTZ 82186132123 Active Corky Mckeon DO Active MELOXICAM 15 MG TABS 1 daily for knee pain MELOXICAM 71445133128 Active Renetta Ryan APRN Active CYCLOBENZAPRINE HCL 10 MG TABS 1 three times a day as needed for muscle spasm CYCLOBENZAPRINE HCL 85628775572 Active Renetta Ryan APRN Active BUSPIRONE HCL 10 MG ORAL TABS 2 TABS PO BID BUSPIRONE HCL 51396912685 Active Corky Mckeon DO Active AMITRIPTYLINE HCL 75 MG ORAL TABS 1 TAB Q HS AMITRIPTYLINE HCL 81397521079 Active Renetta Ryan APRN Active PROAIR HFA 108 (90 BASE) MCG/ACT AERS 2 puffs four times a day as needed 2015 ALBUTEROL SULFATE 13595485945 No Longer Active Renetta Ryan APRN Active KLONOPIN 1 MG TABS 1 tablet TID CLONAZEPAM 41263007769 No Longer Active Renetta Ryan APRN Active ZITHROMAX 250 MG TAB 2 po today, then 1 po q days 2-5 AZITHROMYCIN 74391870318 No Longer Active Jani Marrero MD Active IBUPROFEN 800 MG TABS 1 tab PO TID IBUPROFEN 29289920178 Active Jani Marrero MD Active WELLBUTRIN SR 100 MG ORAL [id number] 1 TAB PO DAILY BUPROPION HCL 47737276561 Active Jani Marrero MD Active AMITRIPTYLINE HCL 50 MG TAB 1 po q hs for sleep AMITRIPTYLINE HCL 36114759160 No Longer Active Jani Marrero MD Active PROMETHAZINE HCL 25 MG TABS 1 four times a day as needed for vomiting PROMETHAZINE HCL 07912892749 No Longer Active Jani Marrero MD Active AMOXICILLIN 500 MG TABS 2 tabs twice a day for 10 days AMOXICILLIN 93076826430 No Longer Active Jani Marrero MD Active SEROQUEL 200 MG ORAL TABS Take 1 tablet at hs QUETIAPINE FUMARATE 79872339530 No Longer Active Jani Marrero MD Active FETZIMA 40 MG ORAL [id number] LEVOMILNACIPRAN HCL 07137233240 No Longer Active Jani Marrero MD Active PROAIR HFA 108 (90 BASE) MCG/ACT AERS 2 puffs four times a day as needed 2011 ALBUTEROL SULFATE 94049533504 No Longer Active Alondra Denton MD Active IBUPROFEN 600 MG TAB 1 tablet three times a day as needed IBUPROFEN 44914478083 No Longer Active Alondra Denton MD Active LATUDA 20 MG TABS 1 tab at at night with meal LURASIDONE HCL 66497155333 No Longer Active Alondra Denton MD Active CYCLOBENZAPRINE HCL 10 MG TABS 1/2 to 1 tablet every 4 hours CYCLOBENZAPRINE HCL 57481348513 No Longer Active Alondra Denton MD Active CYCLOBENZAPRINE HCL 10 MG TABS 1/2 to 1 tablet by mouth three times daily as needed for muscle spasm/pain CYCLOBENZAPRINE HCL 53702704563 No Longer Active Alondra Denton MD Active SUPRAX 400 MG CAPS Take one tablet twice daily for 7 days CEFIXIME 02934985439 No Longer Active Shikha Yokum DREDGE PIPE OPERATOR Active TESSALON PERLES 100 MG CAP 1 tablet by mouth 3 times daily 01/20 BENZONATATE 23663979376 No Longer Active Shikha Yokum DREDGE PIPE OPERATOR Active HYDROXYZINE HCL 10 MG TABS 1 to 2 three times a day as needed for itching HYDROXYZINE HCL 53073111282 No Longer Active Shikha Yokum DREDGE PIPE OPERATOR Active CYCLOBENZAPRINE HCL 10 MG TABS 1 three times a day as needed for back spasm CYCLOBENZAPRINE HCL 01659294670 No Longer Active Shikha Yokum DREDGE PIPE OPERATOR Active SEROQUEL 200 MG TABS 1 tablet at bedtime. QUETIAPINE FUMARATE 87969217442 No Longer Active Shikha Yokum DREDGE PIPE OPERATOR Active BACTRIM DS 800-160 MG TAB 1 tab by mouth twice daily TRIMETHOPRIM-SULFAMETHOXAZOLE 82820386664 No Longer Active Shikha Yokjose SORIANO Active STROMECTOL 3 MG TABS 5 tablets by mouth one time on an empty stomach, may repeat in 2 weeks if needed IVERMECTIN 70282000080 No Longer Active Shikha Yokum DREDGE PIPE OPERATOR Active PERMETHRIN 5 % CREA apply neck to toes tonight and then rinse off in morning. repeat at 7 days PERMETHRIN 92941107020 No Longer Active Andrei Nichols MD Active MEDROL (NISA) 4 MG TABS 6 tabs on day 1, 5 tabs on day 2, 4 tabs on day 3, 3 tabs on day 4, 2 tabs on day 5, 1 tab on day 6 METHYLPREDNISOLONE 33367224417 No Longer Active Prisca Lockwood MD PhD Active AZITHROMYCIN 250 MG TABS 2 po qd x 1 day, then 1 po qd x 4 days AZITHROMYCIN 28294566049 No Longer Active Prisca Lockwood MD PhD Active CELEXA 20 MG TABS Take 1.5 tablets daily CITALOPRAM HYDROBROMIDE 36609481409 No Longer Active Prisca Lockwood MD PhD Active LOMOTIL 2.5-0.025 MG TAB 1 to 2 four times a day as needed for diarrhea 01/21 DIPHENOXYLATE-ATROPINE 24013458358 No Longer Active Prisca Lockwood MD PhD Active TAMIFLU 75 MG CAPS 1 bid x 5 days OSELTAMIVIR PHOSPHATE 27380938232 No Longer Active Rosalie Boyd APRN Active ZITHROMAX 250 MG TAB 2 po today, then 1 po q days 2-5 AZITHROMYCIN 00347789227 No Longer Active Rosalie Boyd APRN Active STROMECTOL 3 MG TABS 6 pills by mouth x 1; repeat in 10 days 2012 IVERMECTIN 29394400233 No Longer Active Rosalie Boyd APRN Active TYLENOL WITH CODEINE #3 300-30 MG TABS ONE TABLET FOUR TIMES A DAY NEEDED for pain or cough ACETAMINOPHEN-CODEINE 24822737945 No Longer Active Rosalie Boyd APRN Active GUAIFENESIN-CODEINE 100-10 MG/5ML SYRP 1 tsp PO q6h PRN cough GUAIFENESIN-CODEINE 86485834022 No Longer Active Rosalie Boyd APRN Active KEFLEX 500 MG CAP 1 po qid CEPHALEXIN 09499059750 No Longer Active Rosalie Boyd APRN Active GUAIFENESIN-CODEINE 100-10 MG/5ML SYRP 1 tsp PO q6h PRN cough GUAIFENESIN-CODEINE 38289722263 No Longer Active Rosalie Boyd APRN Active PROMETHAZINE HCL 25 MG TABS 1 four times a day as needed for nausea/vomiting PROMETHAZINE HCL 46947629348 No Longer Active Rosalie Boyd APRN Active LAMISIL AT 1 % CREA apply bid to rash TERBINAFINE HCL 09594745033 No Longer Active Andrei Nichols MD Active AMOXICILLIN 400 MG/5ML SUSR 6ml three times a day for 10 days AMOXICILLIN 73137199271 No Longer Active Andrei Nichols MD Active PROMETHAZINE HCL 25 MG TABS take 1 po Q 8 hours prn nausea and vomiting 12/11 PROMETHAZINE HCL 77068586702 No Longer Active Andrei Nichols MD Active BACTROBAN 2 % OINTMENT Apply bid to affected area MUPIROCIN 00634206296 No Longer Active Andrei Nichols MD Active GUAIFENESIN-CODEINE 100-10 MG/5ML SYRP 1 tsp PO q6h PRN cough GUAIFENESIN-CODEINE 64241984126 No Longer Active Andrei Nichols MD Active BACTRIM DS 800-160 MG TABS 1 po BID x 10 days SULFAMETHOXAZOLE-TRIMETHOPRIM 07478837037 No Longer Active Rosalie Boyd APRN Active GUAIFENESIN-CODEINE 100-10 MG/5ML SYRP 1-2 tsp PO q6h PRN cough GUAIFENESIN-CODEINE 13703286116 No Longer Active Giovany URBINA Active PREDNISONE 20 MG TABS 1 tablet by mouth twice daily for 2 days, then 1 daily for 2 days PREDNISONE 01546836414 No Longer Active Giovany URBINA Active HYDROCODONE-ACETAMINOPHEN 5-325 MG TABS 1/2 to 1 po q 4 hours prn pain 11/13 HYDROCODONE-ACETAMINOPHEN 68794120521 No Longer Active Rosalie Boyd APRN Active PENICILLIN V POTASSIUM 500 MG TABS 1 TID PENICILLIN V POTASSIUM 43787399161 No Longer Active Andrei Nichols MD Active SEROQUEL 50 MG TABS 1 tablet at HS QUETIAPINE FUMARATE 72892609803 No Longer Active Andrei Nichols MD Active SEROQUEL 100 MG TABS 1 tablet at HS QUETIAPINE FUMARATE 21826800276 No Longer Active Andrei Nichols MD Active TRIAMCINOLONE ACETONIDE 0.1 % CREA apply three times daily prn rash TRIAMCINOLONE ACETONIDE 13797261686 No Longer Active Andrei Nichols MD Active AMOXICILLIN 500 MG TABS take one tab po tid x 10 days AMOXICILLIN 51150109173 No Longer Active Andrei Nichols MD Active CELEXA 20 MG TABS 1and 1/2 tablets by mouth daily CITALOPRAM HYDROBROMIDE 86695741262 No Longer Active Ary URBINA Active FLEXERIL 10 MG TAB 1/2 to one tablet every 12 hours as needed CYCLOBENZAPRINE HCL 45186540979 No Longer Active Ary URBINA Active CLONAZEPAM 1 MG TABS take at bedtime CLONAZEPAM 54617750020 No Longer Active Ary URBINA Active PERMETHRIN 5 % CREA applyhead to toes tonight and then rinse off in 18 hours. repeat at 7 days if needed. PERMETHRIN 41704794962 No Longer Active Ary URBINA Active AMOXICILLIN 500 MG CAPS 2 po BID x 10 days AMOXICILLIN 55367249793 No Longer Active Andrei Nichols MD Active TYLENOL WITH CODEINE #3 300-30 MG TABS 1 to 2 four times a day as needed for pain ACETAMINOPHEN-CODEINE 96560047635 No Longer Active Reta Hampton Active PREDNISONE 20 MG TAB 2 tabs daily for 5 days, then 1 daily for 5 days PREDNISONE 61857265463 No Longer Active Reta Memo Active LOMOTIL 2.5-0.025 MG TAB 1 to 2 four times a day as needed for diarrhea 05/28 DIPHENOXYLATE-ATROPINE 20054519835 No Longer Active Reta Hampton Active ALPRAZOLAM 1 MG TABS 1 tab tid ALPRAZOLAM 93633099813 No Longer Active Reta Hampton Active AMOXICILLIN 500 MG CAPS 2 po BID x 10 days AMOXICILLIN 98186266547 No Longer Active Andrei Nichols MD Active AMOXICILLIN 500 MG TABS Take one tab by mouth 3 times daily, morning, afternoon and evening for 7 days. AMOXICILLIN 83581050631 No Longer Active Virginia Alejandra RN Active VICODIN 5-300 MG TABS one tab PO Q 6 hours PRN pain HYDROCODONE-ACETAMINOPHEN 95139536279 No Longer Active Virginia Alejandra RN Active FLAGYL 500 MG TABS four tabs PO one time METRONIDAZOLE 54601283489 No Longer Active Alondra Denton MD Active MELOXICAM 15 MG TABS 1 po q day for pain with food MELOXICAM 00175652770 No Longer Active Alondra Denton MD Active AMOXICILLIN 400 MG/5ML SUSR 5ml po TID x 10 days AMOXICILLIN 99521314286 No Longer Active Jani Marrero MD Active NIX CREME RINSE 1 % LIQD apply as directed tonight, repeat at 7 days PERMETHRIN 16622152790 No Longer Active Corky Mckeon DO Active QVAR 40 MCG/ACT AERS one puff three times a day as needed BECLOMETHASONE DIPROPIONATE 73999883312 No Longer Active Andrei Nichols MD Active METHOCARBAMOL 500 MG TABS 1 to 2 qid prn back spasm METHOCARBAMOL 17833853499 No Longer Active Andrei Nichols MD Active VISTARIL 25 MG CAPS 1-2 tablets three times a day as needed HYDROXYZINE PAMOATE 14328079186 No Longer Active Andrei Nichols MD Active SEROQUEL 100 MG TABS 1/2 TABLET at hs QUETIAPINE FUMARATE 79662484984 No Longer Active Aicha Rizzo RN Active BACTRIM DS 800-160 MG TAB 1 tab by mouth twice daily TRIMETHOPRIM-SULFAMETHOXAZOLE 63927136533 No Longer Active Prisca Lockwood MD PhD Active CYCLOBENZAPRINE HCL 10 MG TABS TAKE 1/2 - 1 TAB EVERY 12 HOURS NEEDED 2010 CYCLOBENZAPRINE HCL 88420676601 No Longer Active Andrei Nichols MD Active CYCLOBENZAPRINE HCL 10 MG TABS TAKE 1/2 - 1 TAB EVERY 12 HOURS NEEDED 2010 CYCLOBENZAPRINE HCL 10 MG TABS 797604 CYCLOBENZAPRINE HCL Inactive SEROQUEL 100 MG TABS 1/2 TABLET at hs SEROQUEL 100 MG TABS 360059 QUETIAPINE FUMARATE Inactive VISTARIL 25 MG CAPS 1-2 tablets three times a day as needed VISTARIL 25 MG CAPS 804315 HYDROXYZINE PAMOATE Inactive METHOCARBAMOL 500 MG TABS 1 to 2 qid prn back spasm METHOCARBAMOL 500 MG TABS 432880 METHOCARBAMOL Inactive QVAR 40 MCG/ACT AERS one puff three times a day as needed QVAR 40 MCG/ACT AERS BECLOMETHASONE DIPROPIONATE Inactive NIX CREME RINSE 1 % LIQD apply as directed tonight, repeat at 7 days NIX CREME RINSE 1 % LIQD PERMETHRIN Inactive MELOXICAM 15 MG TABS 1 po q day for pain with food MELOXICAM 15 MG TABS 852977 MELOXICAM Inactive ALPRAZOLAM 1 MG TABS 1 tab tid ALPRAZOLAM 1 MG TABS 501604 ALPRAZOLAM Inactive LOMOTIL 2.5-0.025 MG TAB 1 to 2 four times a day as needed for diarrhea 05/28 LOMOTIL 2.5-0.025 MG TAB 3232895 DIPHENOXYLATE-ATROPINE Inactive PREDNISONE 20 MG TAB 2 tabs daily for 5 days, then 1 daily for 5 days PREDNISONE 20 MG TAB 133537 PREDNISONE Inactive TYLENOL WITH CODEINE #3 300-30 MG TABS 1 to 2 four times a day as needed for pain TYLENOL WITH CODEINE #3 300-30 MG TABS ACETAMINOPHEN-CODEINE Inactive PERMETHRIN 5 % CREA applyhead to toes tonight and then rinse off in 18 hours. repeat at 7 days if needed. PERMETHRIN 5 % CREA 436038 PERMETHRIN Inactive CLONAZEPAM 1 MG TABS take at bedtime CLONAZEPAM 1 MG TABS 623161 CLONAZEPAM Inactive FLEXERIL 10 MG TAB 1/2 to one tablet every 12 hours as needed FLEXERIL 10 MG TAB CYCLOBENZAPRINE HCL Inactive CELEXA 20 MG TABS 1and 1/2 tablets by mouth daily CELEXA 20 MG TABS 777232 CITALOPRAM HYDROBROMIDE Inactive AMOXICILLIN 500 MG TABS take one tab po tid x 10 days AMOXICILLIN 500 MG TABS 417197 AMOXICILLIN Inactive TRIAMCINOLONE ACETONIDE 0.1 % CREA apply three times daily prn rash TRIAMCINOLONE ACETONIDE 0.1 % CREA 7940714 TRIAMCINOLONE ACETONIDE Inactive SEROQUEL 100 MG TABS 1 tablet at HS SEROQUEL 100 MG TABS 029531 QUETIAPINE FUMARATE Inactive SEROQUEL 50 MG TABS 1 tablet at HS SEROQUEL 50 MG TABS 091397 QUETIAPINE FUMARATE Inactive HYDROCODONE-ACETAMINOPHEN 5-325 MG TABS 1/2 to 1 po q 4 hours prn pain 11/13 HYDROCODONE-ACETAMINOPHEN 5-325 MG TABS 497712 HYDROCODONE- ACETAMINOPHEN Inactive PREDNISONE 20 MG TABS 1 tablet by mouth twice daily for 2 days, then 1 daily for 2 days PREDNISONE 20 MG TABS 278772 PREDNISONE Inactive GUAIFENESIN-CODEINE 100-10 MG/5ML SYRP 1-2 tsp PO q6h PRN cough GUAIFENESIN-CODEINE 100-10 MG/5ML SYRP 645272 GUAIFENESIN-CODEINE Inactive GUAIFENESIN-CODEINE 100-10 MG/5ML SYRP 1 tsp PO q6h PRN cough GUAIFENESIN-CODEINE 100-10 MG/5ML SYRP 955933 GUAIFENESIN-CODEINE Inactive BACTROBAN 2 % OINTMENT Apply bid to affected area BACTROBAN 2 % OINTMENT 833415 MUPIROCIN Inactive PROMETHAZINE HCL 25 MG TABS take 1 po Q 8 hours prn nausea and vomiting 12/11 PROMETHAZINE HCL 25 MG TABS 990967 PROMETHAZINE HCL Inactive AMOXICILLIN 400 MG/5ML SUSR 6ml three times a day for 10 days AMOXICILLIN 400 MG/5ML SUSR 518628 AMOXICILLIN Inactive LAMISIL AT 1 % CREA apply bid to rash LAMISIL AT 1 % CREA 152551 TERBINAFINE HCL Inactive PROMETHAZINE HCL 25 MG TABS 1 four times a day as needed for nausea/vomiting PROMETHAZINE HCL 25 MG TABS 997720 PROMETHAZINE HCL Inactive GUAIFENESIN-CODEINE 100-10 MG/5ML SYRP 1 tsp PO q6h PRN cough GUAIFENESIN-CODEINE 100-10 MG/5ML SYRP 832231 GUAIFENESIN-CODEINE Inactive KEFLEX 500 MG CAP 1 po qid KEFLEX 500 MG CAP 952785 CEPHALEXIN Inactive GUAIFENESIN-CODEINE 100-10 MG/5ML SYRP 1 tsp PO q6h PRN cough GUAIFENESIN-CODEINE 100-10 MG/5ML SYRP 720198 GUAIFENESIN-CODEINE Inactive TYLENOL WITH CODEINE #3 300-30 MG TABS ONE TABLET FOUR TIMES A DAY NEEDED for pain or cough TYLENOL WITH CODEINE #3 300-30 MG TABS ACETAMINOPHEN-CODEINE Inactive STROMECTOL 3 MG TABS 6 pills by mouth x 1; repeat in 10 days 2012 STROMECTOL 3 MG TABS 588723 IVERMECTIN Inactive LOMOTIL 2.5-0.025 MG TAB 1 to 2 four times a day as needed for diarrhea 01/21 LOMOTIL 2.5-0.025 MG TAB 8368382 DIPHENOXYLATE-ATROPINE Inactive CELEXA 20 MG TABS Take 1.5 tablets daily CELEXA 20 MG TABS 161984 CITALOPRAM HYDROBROMIDE Inactive PERMETHRIN 5 % CREA apply neck to toes tonight and then rinse off in morning. repeat at 7 days PERMETHRIN 5 % CREA 045718 PERMETHRIN Inactive STROMECTOL 3 MG TABS 5 tablets by mouth one time on an empty stomach, may repeat in 2 weeks if needed STROMECTOL 3 MG TABS 889238 IVERMECTIN Inactive BACTRIM DS 800-160 MG TAB 1 tab by mouth twice daily BACTRIM DS 800-160 MG TAB 061750 TRIMETHOPRIM-SULFAMETHOXAZOLE Inactive SEROQUEL 200 MG TABS 1 tablet at bedtime. SEROQUEL 200 MG TABS 811818 QUETIAPINE FUMARATE Inactive CYCLOBENZAPRINE HCL 10 MG TABS 1 three times a day as needed for back spasm CYCLOBENZAPRINE HCL 10 MG TABS 056875 CYCLOBENZAPRINE HCL Inactive HYDROXYZINE HCL 10 MG TABS 1 to 2 three times a day as needed for itching HYDROXYZINE HCL 10 MG TABS 643948 HYDROXYZINE HCL Inactive TESSALON PERLES 100 MG CAP 1 tablet by mouth 3 times daily 01/20 TESSALON PERLES 100 MG CAP 156345 BENZONATATE Inactive CYCLOBENZAPRINE HCL 10 MG TABS 1/2 to 1 tablet by mouth three times daily as needed for muscle spasm/pain CYCLOBENZAPRINE HCL 10 MG TABS 786722 CYCLOBENZAPRINE HCL Inactive CYCLOBENZAPRINE HCL 10 MG TABS 1/2 to 1 tablet every 4 hours CYCLOBENZAPRINE HCL 10 MG TABS 804070 CYCLOBENZAPRINE HCL Inactive LATUDA 20 MG TABS 1 tab at at night with meal LATUDA 20 MG TABS LURASIDONE HCL Inactive IBUPROFEN 600 MG TAB 1 tablet three times a day as needed IBUPROFEN 600 MG TAB 292401 IBUPROFEN Inactive PROAIR HFA 108 (90 BASE) MCG/ACT AERS 2 puffs four times a day as needed 2011 PROAIR HFA 108 (90 BASE) MCG/ACT AERS ALBUTEROL SULFATE Inactive FETZIMA 40 MG ORAL [id number] FETZIMA 40 MG ORAL [id number] LEVOMILNACIPRAN HCL Inactive SEROQUEL 200 MG ORAL TABS Take 1 tablet at hs SEROQUEL 200 MG ORAL TABS 499066 QUETIAPINE FUMARATE Inactive AMOXICILLIN 500 MG TABS 2 tabs twice a day for 10 days AMOXICILLIN 500 MG TABS 689512 AMOXICILLIN Inactive PROMETHAZINE HCL 25 MG TABS 1 four times a day as needed for vomiting PROMETHAZINE HCL 25 MG TABS 512724 PROMETHAZINE HCL Inactive KLONOPIN 1 MG TABS 1 tablet TID KLONOPIN 1 MG TABS 098791 CLONAZEPAM Inactive PROAIR HFA 108 (90 BASE) MCG/ACT AERS 2 puffs four times a day as needed 2015 PROAIR HFA 108 (90 BASE) MCG/ACT AERS ALBUTEROL SULFATE Inactive BACTRIM DS 800-160 MG TAB 1 tab by mouth twice daily BACTRIM DS 800-160 MG TAB 809906 TRIMETHOPRIM-SULFAMETHOXAZOLE Inactive AMOXICILLIN 400 MG/5ML SUSR 5ml po TID x 10 days AMOXICILLIN 400 MG/5ML SUSR 137013 AMOXICILLIN Inactive FLAGYL 500 MG TABS four tabs PO one time FLAGYL 500 MG TABS 171974 METRONIDAZOLE Inactive AMOXICILLIN 500 MG TABS Take one tab by mouth 3 times daily, morning, afternoon and evening for 7 days. AMOXICILLIN 500 MG TABS 601752 AMOXICILLIN Inactive AMOXICILLIN 500 MG CAPS 2 po BID x 10 days AMOXICILLIN 500 MG CAPS 541270 AMOXICILLIN Inactive AMOXICILLIN 500 MG CAPS 2 po BID x 10 days AMOXICILLIN 500 MG CAPS 643969 AMOXICILLIN Inactive PENICILLIN V POTASSIUM 500 MG TABS 1 TID PENICILLIN V POTASSIUM 500 MG TABS 221512 PENICILLIN V POTASSIUM Inactive BACTRIM DS 800-160 MG TABS 1 po BID x 10 days BACTRIM DS 800-160 MG TABS 407456 SULFAMETHOXAZOLE-TRIMETHOPRIM Inactive ZITHROMAX 250 MG TAB 2 po today, then 1 po q days 2-5 ZITHROMAX 250 MG TAB 3956941 AZITHROMYCIN Inactive TAMIFLU 75 MG CAPS 1 bid x 5 days TAMIFLU 75 MG CAPS 925920 OSELTAMIVIR PHOSPHATE Inactive AZITHROMYCIN 250 MG TABS 2 po qd x 1 day, then 1 po qd x 4 days AZITHROMYCIN 250 MG TABS 6658849 AZITHROMYCIN Inactive MEDROL (NISA) 4 MG TABS 6 tabs on day 1, 5 tabs on day 2, 4 tabs on day 3, 3 tabs on day 4, 2 tabs on day 5, 1 tab on day 6 MEDROL ( NISA) 4 MG TABS 774400 METHYLPREDNISOLONE Inactive SUPRAX 400 MG CAPS Take one tablet twice daily for 7 days SUPRAX 400 MG CAPS CEFIXIME Inactive AMITRIPTYLINE HCL 50 MG TAB 1 po q hs for sleep AMITRIPTYLINE HCL 50 MG TAB 018067 AMITRIPTYLINE HCL Inactive ZITHROMAX 250 MG TAB 2 po today, then 1 po q days 2-5 ZITHROMAX 250 MG TAB 8929901 AZITHROMYCIN Inactive Immunizations Vaccine Administration Date Value Standard Description Seasonal influenza vaccine, injectable, containing preservative, for > 3 years old (Afluria, FluLaval, Fluzone, Fluvirin, Fluarix, Agriflu(>=18 yo)) Fluzone (>3 yrs.) [SOB508] Influenza, seasonal, injectable pneumococcal immunization administered Pneumovax 23 [CVX33] pneumococcal polysaccharide vaccine, 23 valent Seasonal influenza vaccine, injectable, containing preservative, for > 3 years old (Afluria, FluLaval, Fluzone, Fluvirin, Fluarix, Agriflu(>=18 yo)) Fluzone (>3 yrs.) [AKA139] Influenza, seasonal, injectable Seasonal influenza vaccine, injectable, containing preservative, for > 3 years old (Afluria, FluLaval, Fluzone, Fluvirin, Fluarix, Agriflu(>=18 yo)) Fluzone (>3 yrs.) [DQA091] Influenza, seasonal, injectable MPSV4 (meningococcal polysaccharide vaccination) Menactra meningococcal polysaccharide vaccine (MPSV4) hepatitis A immunization #1 Havrix-Adult hepatitis A vaccine, unspecified formulation hepatitis B vaccine #1 given Engerix-B Adult hepatitis B vaccine , unspecified formulation dT (Diphtheria and Tetanus) booster given Historical Td(adult) unspecified formulation oral polio vaccine (OPV) #3 Historical poliovirus vaccine, unspecified formulation MMR (measles, mumps, rubella) virus immunization #2 Historical DPT immunization #5 Historical DPT immunization #4 DPT DPT immunization #3 DPT oral polio vaccine (OPV) #2 Historical poliovirus vaccine, unspecified formulation DPT immunization #2 DPT MMR (measles, mumps, rubella) virus immunization #1 Historical oral polio vaccine (OPV) #1 Historical poliovirus vaccine, unspecified formulation DPT immunization #1 DPT Vital Signs Date Name Value Unit Range [...] Panel - Chemistry sodium, serum 144 mmol/L 958-416 4600/06/08 potassium, serum 4.3 mmol/L 3.5-5.2 chloride, serum 104 mmol/L 98-107 carbon dioxide, venous blood 28.2 mmol/L 21.0-32.0 blood glucose 86 mg/dL 65-110 calcium, serum 9.7 mg/dL 8.5-10.1 urea nitrogen, blood 13 mg/dL 7-18 creatinine, serum 0.66 mg/dL 0.55-1.30 Lab Report: HGBA1C - Chemistry hemoglobin A1C, blood, as % of total hemoglobin 5.3 % 4.3-6.0 Encounters Code Encounter Date Provider Facility CPT-79855 Level 4 Est. Patient 14:18:58 CDT Corky Mckeon DO [facility] CPT-24368 Level 3 Est. Patient 16:47:47 CDT Renetta Ryan [facility] CPT-83711 Level 3 Est. Patient 11:04:11 LIGHTING DESIGNER Jani Marrero MD [facility] CPT-29812 Level 3 Est. Patient 12:02:27 LIGHTING DESIGNER Andrei Nichols MD [facility] CPT-13089 Level 3 Est. Patient 12:47:17 LIGHTING DESIGNER Andrei Nichols MD [facility] CPT-40592 Level 3 Est. Patient 14:51:20 LIGHTING DESIGNER Shikha Randolph [facility] CPT-62165 Level 3 Est. Patient 10:42:38 CDT Shikha Randolph [facility] CPT-54159 Level 3 Est. Patient 18:20:39 CDT Prisca Lockwood MD PhD [facility]-69679 Level 3 Est. Patient 16:42:47 LIGHTING DESIGNER Rosalie Boyd [facility] CPT-99469 Level 3 Est. Patient 14:34:36 LIGHTING DESIGNER Rosalie Boyd [facility] CPT-28931 Level 4 Est. Patient 10:23:07 LIGHTING DESIGNER Andrei Nichols MD [facility]-56642 Level 3 Est. Patient 16:47:31 LIGHTING DESIGNER Andrei Nichols MD [facility]-47045 Level 3 Est. Patient 11:59:14 CDT Rosalie Boyd [facility]-90216 Level 3 Est. Patient 15:30:34 CDT Giovany URBINA [facility]-44929 Level 3 Est. Patient 11:03:03 CDT Rosalie Boyd [facility]-09002 Level 3 Est. Patient 11:08:07 CDT Rosalie Boyd [facility] CPT-36977 Level 3 Est. Patient 14:07:32 CDT Andrei Nichols MD [facility]-89375 Level 3 Est. Patient 17:08:28 CDT Andrei Nichols MD [facility]-91443 Level 3 Est. Patient 13:10:13 CDT Jani Marrero MD [facility]-72436 Level 3 Est. Patient 11:27:12 CDT Jani Marrero MD [facility]-30842 Level 3 Est. Patient 13:44:42 CDT Andrei Nichols MD [facility]-82116 Level 3 Est. Patient 12:34:57 LIGHTING DESIGNER Andrei Nichols MD [facility]-48014 Level 3 Est. Patient 15:30:06 CDT Jani Marrero MD [facility] CPT-28701 Level 3 Est. Patient 21:59:00 CDT Corky Mckeon DO [facility] CPT-80700 Level 3 Est. Patient 17:12:49 CDT Andrei Nichols MD [facility] CPT-63322 Level 4 Est. Patient 12:27:45 LIGHTING DESIGNER Andrei Nichols MD [facility] CPT-65896 Level 3 Est. Patient 12:15:34 LIGHTING DESIGNER Andrei Nichols MD [facility] Procedures Code Procedure Name Date Entry Date Standard Description CPT-15928 Knee, left, 3V - XRAY USE ONLY 14:53:02 CDT CPT-OV Office Visit 11:36:40 CDT CPT-06028 Administration 2+ single or combination vaccines inc oral 07:50:30 CDT CPT-83584 Administration single or combination vaccine inc oral 07 :50:30 CDT CPT-75612 Pneumovax 07:50:30 CDT CPT-79273 Influenza split virus > age 3 07:50:30 CDT CPT-OV Office Visit 11:49:10 LIGHTING DESIGNER CPT-11317 Nexplanon Removal with Reinsertion 14:02:06 LIGHTING DESIGNER CPT-J7307 Nexplanon (Implant) 14:02:06 LIGHTING DESIGNER CPT-OV Office Visit 14:02:06 LIGHTING DESIGNER CPT-OV Office Visit 11:58:04 LIGHTING DESIGNER CPT-25334 Administration single or combination vaccine inc oral 11 :31:07 CDT CPT-69127 Influenza split virus > age 3 11:31:07 CDT CPT-81840 Administration single or combination vaccine inc oral 10 :34:13 CDT CPT-63318 Influenza split virus > age 3 10:34:13 CDT
--- OUTSIDE RECORDS SUMMARY | 2017-01-02 18:15 | XMS REPORT ---
Author Author Jennifer Hernandez Organization [employer] Address Unknown Phone Unavailable Care Team Providers Care Finisher Special Stocks Name Role Phone Jennifer Hernandez CP Unavailable Allergies, Adverse Reactions, Alerts Substance Reaction Event Type N.K.D.A. Info Not Available Non Drug Allergy Problems Problem Type Condition Code Onset Dates Condition Status Assessment Tobacco abuse Z72.0 Active Assessment Well woman exam (no gynecological exam) Z00.00 Active Assessment Methamphetamine abuse F15.10 Active Problem Methamphetamine abuse F15.10 Active Problem Tobacco abuse Z72.0 Active Problem Well woman exam (no gynecological exam) Z00.00 Active Problem Implantable subdermal contraceptive surveillance Z30.49 Active Problem Screening for diabetes mellitus Z13.1 Active Problem Screening examination for sexually transmitted disease Z11.3 Active Problem Injury of left hand S69.92XA Active Assessment Screening for diabetes mellitus Z13.1 Active Assessment Implantable subdermal contraceptive surveillance Z30.49 Active Assessment Injury of left hand S69.92XA Active Assessment Screening examination for sexually transmitted disease Z11.3 Active Medications Medication Code System Code Instructions Start Date End Date Status Dosage Quetiapine Fumarate [facility] [address]-52 100 MG Orally Once a day 1 tablet Nicoderm CQ [facility] [address]-64 21 MG/24HR Transdermal Once a day June 30, 2015 1 patch to skin Gabapentin [facility] [address]-88 300 MG Orally Three times a day June 30, 2015 1 capsule Clonazepam [facility] [address]-31 1 MG Orally TID 1 tablet Procedures Procedure Coding System Code Date Office Visit, New Pt., Level 3 CPT-4 45722 June 30, 2015 GLYCATED HEMOGLOBIN TEST/A1C CPT-4 38166 June 30, 2015 Vital Signs Date/Time: June 30, 2015 Blood Pressure Systolic 118 mm Hg Cardiac Monitoring Heart Rate 100 /min Temperature 97.9 F BMI 29.06 Index Weight 176.0 lbs Height 65.25 in Blood Pressure Diastolic 78 mm Hg Respiratory Rate 20 /min Results No Known Results Summary Purpose [employer] Submission
--- OUTSIDE RECORDS SUMMARY | 2017-01-02 18:15 | XMS REPORT ---
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 Info Not Available Non Drug Allergy Problems Problem Type Condition Code Onset Dates Condition Status Problem Migraine without aura and with status migrainosus, not intractable G43.001 Active Problem Morbid obesity due to excess calories E66.01 Active Problem Obesity (BMI 30-39.9) E66.9 Active Problem Lumbago with sciatica, right side M54.41 Active Assessment Migraine without aura and with status migrainosus, not intractable G43.001 Active Problem Other chronic pain G89.29 Active Assessment Gastroesophageal reflux disease without esophagitis K21.9 Active Assessment Family history of migraine Z82.0 Active Problem Lumbago with sciatica, left side M54.42 Active Problem Family history of hypertension Z82.49 Active Problem History of substance abuse Z87.898 Active Problem Routine health maintenance Z00.00 Active Problem Family history of diabetes mellitus Z83.3 Active Assessment Lumbago with sciatica, right side M54.41 Active Assessment Lumbago with sciatica, left side M54.42 Active Assessment Obesity (BMI 30-39.9) E66.9 Active Assessment Other chronic pain G89.29 Active Assessment Family history of diabetes mellitus Z83.3 Active Assessment Routine health maintenance Z00.00 Active Assessment History of substance abuse Z87.898 Active Problem Family history of migraine Z82.0 Active Assessment Family history of hypertension Z82.49 Active Problem Gastroesophageal reflux disease without esophagitis K21.9 Active Medications Medication Code System Code Instructions Start Date End Date Status Dosage Topamax [facility] [address]-27 25 MG Orally Once a day Dec 24, 2015 1 tablet BusPIRone HCl [facility] [address]-44 10 MG Orally Twice a day 1 tablet Wellbutrin [place] 0 100 MG Once a day 1 tablet Ibuprofen [facility] [address]-48 400 MG Orally Three times a day 1 tablet Tylenol Extra Strength [facility] [address]-71 500 MG Orally every 6 hrs 2 tablets as needed Omeprazole [facility] [address]-38 20 mg Orally Once a day Dec 24, 2015 1 capsules Melatonin [facility] [address]-94 3 MG Orally Once a day 1 tablet at bedtime as needed with food Seroquel [facility] [address]-91 200 MG Orally Once a day 1 tablet at bedtime Cyclobenzaprine HCl [facility] [address]-84 10 mg Orally 2 times a day Dec 24, 2015 Jan 23, 2016 1 tablet Procedures Procedure Coding System Code Date Office Visit, Est Pt., Level 4 CPT-4 96905 Dec 24, 2015 Vital Signs Date/Time: Dec 24, 2015 Cardiac Monitoring Heart Rate 76 bpm Weight 218.9 lbs Height 64.5 in BMI 36.99 Index Blood Pressure Diastolic 72 mmHg Blood Pressure Systolic 110 mmHg Results No Known Results Summary Purpose [employer] Submission
--- OUTSIDE RECORDS SUMMARY | 2017-01-02 18:15 | XMS REPORT | Clinical Summary ---
Author Author Admin, E Organization [facility] Address Unknown Phone Unavailable Allergies, Adverse Reactions, [...] Sinusitis, frontal, acute 461.1 Resolved Shikha Yokum DIE CUTTER APPRENTICE Acute frontal sinusitis Pharyngitis 462 Resolved Shikha Yokum DIE CUTTER APPRENTICE Acute pharyngitis Scabies 133.0 Resolved Shikha Yokum DIE CUTTER APPRENTICE Scabies Folliculitis 704.8 Resolved Shikha Yokum DIE CUTTER APPRENTICE Other specified diseases of hair and hair [...] Kirk PA ECZEMA ICD-692.9 Inactive Shikha Ageesiva DIE CUTTER APPRENTICE OTITIS MEDIA ICD-382.9 Inactive Ary Kirk PA 09/16 PHARYNGITIS ICD-462 Inactive Andrei Nichols MD UNSPECIFIED DISORDER TEETH&SUPPORTING STRUCTURES ICD-525.9 12/29 Inactive Shikha Randolph DIE CUTTER APPRENTICE PHARYNGITIS-ACUTE ICD-462 Inactive Rosalie Boyd DIE CUTTER APPRENTICE DIARRHEA ICD-787.91 Inactive Andrei Nichols MD SHOULDER PAIN ICD-719.41 Inactive Shikha Randolph DIE CUTTER APPRENTICE NAUSEA AND VOMITING ICD-787.01 Inactive Andrei Nichols [...] PhD Dental caries ICD-521.00 Inactive Shikha Yokum DIE CUTTER APPRENTICE Tooth pain ICD-525.9 Inactive Prisca Lockwood MD PhD Head lice ICD-132.0 Inactive Prisca Lockwood MD PhD Upper respiratory infection ICD-465.9 Inactive Prisca Lockwood MD PhD Sinusitis, frontal, acute ICD-461.1 Inactive Shikha Yokum DIE CUTTER APPRENTICE Pharyngitis ICD-462 Inactive Shikha Yokum DIE CUTTER APPRENTICE 2013 Scabies ICD-133.0 Inactive Shikha Yokum DIE CUTTER APPRENTICE 12/29 Folliculitis ICD-704.8 Inactive Shikha Yokum DIE CUTTER APPRENTICE Cough ICD-786.2 Inactive Andrei Nichols MD SINUSITIS, ACUTE ICD-461.9 Inactive Jani Marrero MD Medication List Medication Instructions Start Date Stop Date Generic Name NDC Status Provider Patient Instruction MELOXICAM 15 MG TABS 1 daily for knee pain MELOXICAM [id number] Active Renetta Ryan APRN Active CYCLOBENZAPRINE HCL 10 MG TABS 1 three times a day as needed for muscle spasm CYCLOBENZAPRINE HCL 68396645286 Active Renetta Ryan APRN Active BUSPIRONE HCL 10 MG ORAL TABS 2 TABS PO BID BUSPIRONE HCL 61891487180 Active Renetta Ryan APRN Active AMITRIPTYLINE HCL 75 MG ORAL TABS 1 TAB Q HS AMITRIPTYLINE HCL 50676985246 Active Renetta Ryan APRN Active PROAIR HFA 108 (90 BASE) MCG/ACT AERS 2 puffs four times a day as needed 2015 ALBUTEROL SULFATE 17399549223 No Longer Active Renetta Ryan APRN Active KLONOPIN 1 MG TABS 1 tablet TID CLONAZEPAM 32234941542 No Longer Active Renetta Ryan APRN Active ZITHROMAX 250 MG TAB 2 po today, then 1 po q days 2-5 AZITHROMYCIN 02341133233 No Longer Active Jani Marrero MD Active IBUPROFEN 800 MG TABS 1 tab PO TID IBUPROFEN 59674824067 Active Jani Marrero MD Active WELLBUTRIN SR 100 MG ORAL [id number] 1 TAB PO DAILY BUPROPION HCL 38084984422 Active Jani Marrero MD Active AMITRIPTYLINE HCL 50 MG TAB 1 po q hs for sleep AMITRIPTYLINE HCL 61745351071 No Longer Active Jani Marrero MD Active PROMETHAZINE HCL 25 MG TABS 1 four times a day as needed for vomiting PROMETHAZINE HCL 26447047834 No Longer Active Jani Marrero MD Active AMOXICILLIN 500 MG TABS 2 tabs twice a day for 10 days AMOXICILLIN 84929218633 No Longer Active Jani Marrero MD Active SEROQUEL 200 MG ORAL TABS Take 1 tablet at hs QUETIAPINE FUMARATE 67569785326 No Longer Active Jani Marrero MD Active FETZIMA 40 MG ORAL [id number] LEVOMILNACIPRAN HCL 76636165616 No Longer Active Jani Marrero MD Active PROAIR HFA 108 (90 BASE) MCG/ACT AERS 2 puffs four times a day as needed 2011 ALBUTEROL SULFATE 07766668438 No Longer Active Alondra Denton MD Active IBUPROFEN 600 MG TAB 1 tablet three times a day as needed IBUPROFEN 29713234211 No Longer Active Alondra Denton MD Active LATUDA 20 MG TABS 1 tab at at night with meal LURASIDONE HCL 52746106121 No Longer Active Alondra Denton MD Active CYCLOBENZAPRINE HCL 10 MG TABS 1/2 to 1 tablet every 4 hours CYCLOBENZAPRINE HCL 48189084118 No Longer Active Alondra Denton MD Active CYCLOBENZAPRINE HCL 10 MG TABS 1/2 to 1 tablet by mouth three times daily as needed for muscle spasm/pain CYCLOBENZAPRINE HCL 34701205108 No Longer Active Alondra Denton MD Active SUPRAX 400 MG CAPS Take one tablet twice daily for 7 days CEFIXIME 91555114617 No Longer Active Shikha Yokum DIE CUTTER APPRENTICE Active TESSALON PERLES 100 MG CAP 1 tablet by mouth 3 times daily 01/20 BENZONATATE 54192202209 No Longer Active Shikha Yokum DIE CUTTER APPRENTICE Active HYDROXYZINE HCL 10 MG TABS 1 to 2 three times a day as needed for itching HYDROXYZINE HCL 62670399558 No Longer Active Shikha Yokum DIE CUTTER APPRENTICE Active CYCLOBENZAPRINE HCL 10 MG TABS 1 three times a day as needed for back spasm CYCLOBENZAPRINE HCL 48622641108 No Longer Active Shikha Yokum DIE CUTTER APPRENTICE Active SEROQUEL 200 MG TABS 1 tablet at bedtime. QUETIAPINE FUMARATE 20649509136 No Longer Active Shikha Yokum DIE CUTTER APPRENTICE Active BACTRIM DS 800-160 MG TAB 1 tab by mouth twice daily TRIMETHOPRIM-SULFAMETHOXAZOLE 02531203276 No Longer Active Shikha Yokum DIE CUTTER APPRENTICE Active STROMECTOL 3 MG TABS 5 tablets by mouth one time on an empty stomach, may repeat in 2 weeks if needed IVERMECTIN 70477920826 No Longer Active Shikha Yokum DIE CUTTER APPRENTICE Active PERMETHRIN 5 % CREA apply neck to toes tonight and then rinse off in morning. repeat at 7 days PERMETHRIN 48118856676 No Longer Active Andrei Nichols MD Active MEDROL (NISA) 4 MG TABS 6 tabs on day 1, 5 tabs on day 2, 4 tabs on day 3, 3 tabs on day 4, 2 tabs on day 5, 1 tab on day 6 METHYLPREDNISOLONE 60891455526 No Longer Active Prisca Lockwood MD PhD Active AZITHROMYCIN 250 MG TABS 2 po qd x 1 day, then 1 po qd x 4 days AZITHROMYCIN 19900385768 No Longer Active Prisca Lockwood MD PhD Active CELEXA 20 MG TABS Take 1.5 tablets daily CITALOPRAM HYDROBROMIDE 49572526695 No Longer Active Prisca Lockwood MD PhD Active LOMOTIL 2.5-0.025 MG TAB 1 to 2 four times a day as needed for diarrhea 01/21 DIPHENOXYLATE-ATROPINE 94405779749 No Longer Active Prisca Lockwood MD PhD Active TAMIFLU 75 MG CAPS 1 bid x 5 days OSELTAMIVIR PHOSPHATE 98747732222 No Longer Active Rosalie Boyd APRN Active ZITHROMAX 250 MG TAB 2 po today, then 1 po q days 2-5 AZITHROMYCIN 27655840533 No Longer Active Rosalie Boyd APRN Active STROMECTOL 3 MG TABS 6 pills by mouth x 1; repeat in 10 days 2012 IVERMECTIN 17736461197 No Longer Active Rosalie Boyd APRN Active TYLENOL WITH CODEINE #3 300-30 MG TABS ONE TABLET FOUR TIMES A DAY NEEDED for pain or cough ACETAMINOPHEN-CODEINE 39178532700 No Longer Active Rosalie Boyd APRN Active GUAIFENESIN-CODEINE 100-10 MG/5ML SYRP 1 tsp PO q6h PRN cough GUAIFENESIN-CODEINE 58170686376 No Longer Active Rosalie Boyd APRN Active KEFLEX 500 MG CAP 1 po qid CEPHALEXIN 85288276004 No Longer Active Rosalie Boyd APRN Active GUAIFENESIN-CODEINE 100-10 MG/5ML SYRP 1 tsp PO q6h PRN cough GUAIFENESIN-CODEINE 96485018455 No Longer Active Rosalie Boyd APRN Active PROMETHAZINE HCL 25 MG TABS 1 four times a day as needed for nausea/vomiting PROMETHAZINE HCL 87141439920 No Longer Active Rosalie Boyd APRN Active LAMISIL AT 1 % CREA apply bid to rash TERBINAFINE HCL 17252013107 No Longer Active Andrei Nichols MD Active AMOXICILLIN 400 MG/5ML SUSR 6ml three times a day for 10 days AMOXICILLIN 34058228597 No Longer Active Andrei Nichols MD Active PROMETHAZINE HCL 25 MG TABS take 1 po Q 8 hours prn nausea and vomiting 12/11 PROMETHAZINE HCL 31287857264 No Longer Active Andrei Nichols MD Active BACTROBAN 2 % OINTMENT Apply bid to affected area MUPIROCIN 75886868992 No Longer Active Andrei Nichols MD Active GUAIFENESIN-CODEINE 100-10 MG/5ML SYRP 1 tsp PO q6h PRN cough GUAIFENESIN-CODEINE 53942467292 No Longer Active Andrei Nichols MD Active BACTRIM DS 800-160 MG TABS 1 po BID x 10 days SULFAMETHOXAZOLE-TRIMETHOPRIM 98477340257 No Longer Active Rosalie Boyd APRN Active GUAIFENESIN-CODEINE 100-10 MG/5ML SYRP 1-2 tsp PO q6h PRN cough GUAIFENESIN-CODEINE 35666491113 No Longer Active Giovany URBINA Active PREDNISONE 20 MG TABS 1 tablet by mouth twice daily for 2 days, then 1 daily for 2 days PREDNISONE 30899099919 No Longer Active Giovany URBINA Active HYDROCODONE-ACETAMINOPHEN 5-325 MG TABS 1/2 to 1 po q 4 hours prn pain 11/13 HYDROCODONE-ACETAMINOPHEN 85674631773 No Longer Active Rosalie Boyd DIE CUTTER APPRENTICE Active PENICILLIN V POTASSIUM 500 MG TABS 1 TID PENICILLIN V POTASSIUM 21399459961 No Longer Active Andrei Nichols MD Active SEROQUEL 50 MG TABS 1 tablet at HS QUETIAPINE FUMARATE 69105226335 No Longer Active Andrei Nichols MD Active SEROQUEL 100 MG TABS 1 tablet at HS QUETIAPINE FUMARATE 06341101479 No Longer Active Andrei Nichols MD Active TRIAMCINOLONE ACETONIDE 0.1 % CREA apply three times daily prn rash TRIAMCINOLONE ACETONIDE 39695595951 No Longer Active Andrei Nichols MD Active AMOXICILLIN 500 MG TABS take one tab po tid x 10 days AMOXICILLIN 60581255081 No Longer Active Andrei Nichols MD Active CELEXA 20 MG TABS 1and 1/2 tablets by mouth daily CITALOPRAM HYDROBROMIDE 06783457468 No Longer Active Ary Pool PA Active FLEXERIL 10 MG TAB 1/2 to one tablet every 12 hours as needed CYCLOBENZAPRINE HCL 98539807774 No Longer Active Ary Pool PA Active CLONAZEPAM 1 MG TABS take at bedtime CLONAZEPAM 12206975619 No Longer Active Ary Pool PA Active PERMETHRIN 5 % CREA applyhead to toes tonight and then rinse off in 18 hours. repeat at 7 days if needed. PERMETHRIN 75940219075 No Longer Active Ary Pool PA Active AMOXICILLIN 500 MG CAPS 2 po BID x 10 days AMOXICILLIN 88384831273 No Longer Active Andrei Nichols MD Active TYLENOL WITH CODEINE #3 300-30 MG TABS 1 to 2 four times a day as needed for pain ACETAMINOPHEN-CODEINE 42194670345 No Longer Active Reta Hampton Active PREDNISONE 20 MG TAB 2 tabs daily for 5 days, then 1 daily for 5 days PREDNISONE 92333296577 No Longer Active Reta Hampton Active LOMOTIL 2.5-0.025 MG TAB 1 to 2 four times a day as needed for diarrhea 05/28 DIPHENOXYLATE-ATROPINE 95185208733 No Longer Active Reta Hampton Active ALPRAZOLAM 1 MG TABS 1 tab tid ALPRAZOLAM 08732862661 No Longer Active Reta Hampton Active AMOXICILLIN 500 MG CAPS 2 po BID x 10 days AMOXICILLIN 42641748109 No Longer Active Andrei Nichols MD Active AMOXICILLIN 500 MG TABS Take one tab by mouth 3 times daily, morning, afternoon and evening for 7 days. AMOXICILLIN 48845611683 No Longer Active Virginia Alejandra RN Active VICODIN 5-300 MG TABS one tab PO Q 6 hours PRN pain HYDROCODONE-ACETAMINOPHEN 37212679477 No Longer Active Virginia Alejandra RN Active FLAGYL 500 MG TABS four tabs PO one time METRONIDAZOLE 59895700066 No Longer Active Alondra Denton MD Active MELOXICAM 15 MG TABS 1 po q day for pain with food MELOXICAM 84659541789 No Longer Active Alondra Denton MD Active AMOXICILLIN 400 MG/5ML SUSR 5ml po TID x 10 days AMOXICILLIN 74581283931 No Longer Active Jani Marrero MD Active NIX CREME RINSE 1 % LIQD apply as directed tonight, repeat at 7 days PERMETHRIN 16608720978 No Longer Active Corky Mckeon DO Active QVAR 40 MCG/ACT AERS one puff three times a day as needed BECLOMETHASONE DIPROPIONATE 83297460017 No Longer Active Andrei Nichols MD Active METHOCARBAMOL 500 MG TABS 1 to 2 qid prn back spasm METHOCARBAMOL 96174601772 No Longer Active Andrei Nichols MD Active VISTARIL 25 MG CAPS 1-2 tablets three times a day as needed HYDROXYZINE PAMOATE 91655140711 No Longer Active Andrei Nichols MD Active SEROQUEL 100 MG TABS 1/2 TABLET at hs QUETIAPINE FUMARATE 67602289510 No Longer Active Aicha Rizzo RN Active BACTRIM DS 800-160 MG TAB 1 tab by mouth twice daily TRIMETHOPRIM-SULFAMETHOXAZOLE 82563106914 No Longer Active Prisca Lockwood MD PhD Active CYCLOBENZAPRINE HCL 10 MG TABS TAKE 1/2 - 1 TAB EVERY 12 HOURS NEEDED 2010 CYCLOBENZAPRINE HCL 46638655483 No Longer Active Andrei Nichols MD Active CYCLOBENZAPRINE HCL 10 MG TABS TAKE 1/2 - 1 TAB EVERY 12 HOURS NEEDED 2010 CYCLOBENZAPRINE HCL 10 MG TABS 660875 CYCLOBENZAPRINE HCL Inactive SEROQUEL 100 MG TABS 1/2 TABLET at hs SEROQUEL 100 MG TABS 976736 QUETIAPINE FUMARATE Inactive VISTARIL 25 MG CAPS 1-2 tablets three times a day as needed VISTARIL 25 MG CAPS 189477 HYDROXYZINE PAMOATE Inactive METHOCARBAMOL 500 MG TABS 1 to 2 qid prn back spasm METHOCARBAMOL 500 MG TABS 164708 METHOCARBAMOL Inactive QVAR 40 MCG/ACT AERS one puff three times a day as needed QVAR 40 MCG/ACT AERS BECLOMETHASONE DIPROPIONATE Inactive NIX CREME RINSE 1 % LIQD apply as directed carlotta, repeat at 7 days NIX CREME RINSE 1 % LIQD PERMETHRIN Inactive MELOXICAM 15 MG TABS 1 po q day for pain with food MELOXICAM 15 MG TABS 569132 MELOXICAM Inactive ALPRAZOLAM 1 MG TABS 1 tab tid ALPRAZOLAM 1 MG TABS 622607 ALPRAZOLAM Inactive LOMOTIL 2.5-0.025 MG TAB 1 to 2 four times a day as needed for diarrhea 05/28 LOMOTIL 2.5-0.025 MG TAB 1701359 DIPHENOXYLATE-ATROPINE Inactive PREDNISONE 20 MG TAB 2 tabs daily for 5 days, then 1 daily for 5 days PREDNISONE 20 MG TAB 490069 PREDNISONE Inactive TYLENOL WITH CODEINE #3 300-30 MG TABS 1 to 2 four times a day as needed for pain TYLENOL WITH CODEINE #3 300-30 MG TABS ACETAMINOPHEN-CODEINE Inactive PERMETHRIN 5 % CREA applyhead to toes tonight and then rinse off in 18 hours. repeat at 7 days if needed. PERMETHRIN 5 % CREA 701665 PERMETHRIN Inactive CLONAZEPAM 1 MG TABS take at bedtime CLONAZEPAM 1 MG TABS 512048 CLONAZEPAM Inactive FLEXERIL 10 MG TAB 1/2 to one tablet every 12 hours as needed FLEXERIL 10 MG TAB CYCLOBENZAPRINE HCL Inactive CELEXA 20 MG TABS 1and 1/2 tablets by mouth daily CELEXA 20 MG TABS 884778 CITALOPRAM HYDROBROMIDE Inactive AMOXICILLIN 500 MG TABS take one tab po tid x 10 days AMOXICILLIN 500 MG TABS 651861 AMOXICILLIN Inactive TRIAMCINOLONE ACETONIDE 0.1 % CREA apply three times daily prn rash TRIAMCINOLONE ACETONIDE 0.1 % CREA 2876138 TRIAMCINOLONE ACETONIDE Inactive SEROQUEL 100 MG TABS 1 tablet at HS SEROQUEL 100 MG TABS 563431 QUETIAPINE FUMARATE Inactive SEROQUEL 50 MG TABS 1 tablet at HS SEROQUEL 50 MG TABS 671453 QUETIAPINE FUMARATE Inactive HYDROCODONE-ACETAMINOPHEN 5-325 MG TABS 1/2 to 1 po q 4 hours prn pain 11/13 HYDROCODONE-ACETAMINOPHEN 5-325 MG TABS 140467 HYDROCODONE- ACETAMINOPHEN Inactive PREDNISONE 20 MG TABS 1 tablet by mouth twice daily for 2 days, then 1 daily for 2 days PREDNISONE 20 MG TABS 270241 PREDNISONE Inactive GUAIFENESIN-CODEINE 100-10 MG/5ML SYRP 1-2 tsp PO q6h PRN cough GUAIFENESIN-CODEINE 100-10 MG/5ML SYRP 125560 GUAIFENESIN-CODEINE Inactive GUAIFENESIN-CODEINE 100-10 MG/5ML SYRP 1 tsp PO q6h PRN cough GUAIFENESIN-CODEINE 100-10 MG/5ML SYRP 749772 GUAIFENESIN-CODEINE Inactive BACTROBAN 2 % OINTMENT Apply bid to affected area BACTROBAN 2 % OINTMENT 697951 MUPIROCIN Inactive PROMETHAZINE HCL 25 MG TABS take 1 po Q 8 hours prn nausea and vomiting 12/11 PROMETHAZINE HCL 25 MG TABS 955127 PROMETHAZINE HCL Inactive AMOXICILLIN 400 MG/5ML SUSR 6ml three times a day for 10 days AMOXICILLIN 400 MG/5ML SUSR 558139 AMOXICILLIN Inactive LAMISIL AT 1 % CREA apply bid to rash LAMISIL AT 1 % CREA 977742 TERBINAFINE HCL Inactive PROMETHAZINE HCL 25 MG TABS 1 four times a day as needed for nausea/vomiting PROMETHAZINE HCL 25 MG TABS 216257 PROMETHAZINE HCL Inactive GUAIFENESIN-CODEINE 100-10 MG/5ML SYRP 1 tsp PO q6h PRN cough GUAIFENESIN-CODEINE 100-10 MG/5ML SYRP 871473 GUAIFENESIN-CODEINE Inactive KEFLEX 500 MG CAP 1 po qid KEFLEX 500 MG CAP 361181 CEPHALEXIN Inactive GUAIFENESIN-CODEINE 100-10 MG/5ML SYRP 1 tsp PO q6h PRN cough GUAIFENESIN-CODEINE 100-10 MG/5ML SYRP 556826 GUAIFENESIN-CODEINE Inactive TYLENOL WITH CODEINE #3 300-30 MG TABS ONE TABLET FOUR TIMES A DAY NEEDED for pain or cough TYLENOL WITH CODEINE #3 300-30 MG TABS ACETAMINOPHEN-CODEINE Inactive STROMECTOL 3 MG TABS 6 pills by mouth x 1; repeat in 10 days 2012 STROMECTOL 3 MG TABS 306899 IVERMECTIN Inactive LOMOTIL 2.5-0.025 MG TAB 1 to 2 four times a day as needed for diarrhea 01/21 LOMOTIL 2.5-0.025 MG TAB 3814455 DIPHENOXYLATE-ATROPINE Inactive CELEXA 20 MG TABS Take 1.5 tablets daily CELEXA 20 MG TABS 930214 CITALOPRAM HYDROBROMIDE Inactive PERMETHRIN 5 % CREA apply neck to toes tonight and then rinse off in morning. repeat at 7 days PERMETHRIN 5 % CREA 943042 PERMETHRIN Inactive STROMECTOL 3 MG TABS 5 tablets by mouth one time on an empty stomach, may repeat in 2 weeks if needed STROMECTOL 3 MG TABS 251008 IVERMECTIN Inactive BACTRIM DS 800-160 MG TAB 1 tab by mouth twice daily BACTRIM DS 800-160 MG TAB 798439 TRIMETHOPRIM-SULFAMETHOXAZOLE Inactive SEROQUEL 200 MG TABS 1 tablet at bedtime. SEROQUEL 200 MG TABS 906121 QUETIAPINE FUMARATE Inactive CYCLOBENZAPRINE HCL 10 MG TABS 1 three times a day as needed for back spasm CYCLOBENZAPRINE HCL 10 MG TABS 327977 CYCLOBENZAPRINE HCL Inactive HYDROXYZINE HCL 10 MG TABS 1 to 2 three times a day as needed for itching HYDROXYZINE HCL 10 MG TABS 005797 HYDROXYZINE HCL Inactive TESSALON PERLES 100 MG CAP 1 tablet by mouth 3 times daily 01/20 TESSALON PERLES 100 MG CAP 412117 BENZONATATE Inactive CYCLOBENZAPRINE HCL 10 MG TABS 1/2 to 1 tablet by mouth three times daily as needed for muscle spasm/pain CYCLOBENZAPRINE HCL 10 MG TABS 131436 CYCLOBENZAPRINE HCL Inactive CYCLOBENZAPRINE HCL 10 MG TABS 1/2 to 1 tablet every 4 hours CYCLOBENZAPRINE HCL 10 MG TABS 508663 CYCLOBENZAPRINE HCL Inactive LATUDA 20 MG TABS 1 tab at at night with meal LATUDA 20 MG TABS LURASIDONE HCL Inactive IBUPROFEN 600 MG TAB 1 tablet three times a day as needed IBUPROFEN 600 MG TAB 099901 IBUPROFEN Inactive PROAIR HFA 108 (90 BASE) MCG/ACT AERS 2 puffs four times a day as needed 2011 PROAIR HFA 108 (90 BASE) MCG/ACT AERS ALBUTEROL SULFATE Inactive FETZIMA 40 MG ORAL [id number] FETZIMA 40 MG ORAL [id number] LEVOMILNACIPRAN HCL Inactive SEROQUEL 200 MG ORAL TABS Take 1 tablet at hs SEROQUEL 200 MG ORAL TABS 601368 QUETIAPINE FUMARATE Inactive AMOXICILLIN 500 MG TABS 2 tabs twice a day for 10 days AMOXICILLIN 500 MG TABS 537992 AMOXICILLIN Inactive PROMETHAZINE HCL 25 MG TABS 1 four times a day as needed for vomiting PROMETHAZINE HCL 25 MG TABS 599499 PROMETHAZINE HCL Inactive KLONOPIN 1 MG TABS 1 tablet TID KLONOPIN 1 MG TABS 481331 CLONAZEPAM Inactive PROAIR HFA 108 (90 BASE) MCG/ACT AERS 2 puffs four times a day as needed 2015 PROAIR HFA 108 (90 BASE) MCG/ACT AERS ALBUTEROL SULFATE Inactive BACTRIM DS 800-160 MG TAB 1 tab by mouth twice daily BACTRIM DS 800-160 MG TAB 215076 TRIMETHOPRIM-SULFAMETHOXAZOLE Inactive AMOXICILLIN 400 MG/5ML SUSR 5ml po TID x 10 days AMOXICILLIN 400 MG/5ML SUSR 636325 AMOXICILLIN Inactive FLAGYL 500 MG TABS four tabs PO one time FLAGYL 500 MG TABS 469553 METRONIDAZOLE Inactive AMOXICILLIN 500 MG TABS Take one tab by mouth 3 times daily, morning, afternoon and evening for 7 days. AMOXICILLIN 500 MG TABS 426975 AMOXICILLIN Inactive AMOXICILLIN 500 MG CAPS 2 po BID x 10 days AMOXICILLIN 500 MG CAPS 393131 AMOXICILLIN Inactive AMOXICILLIN 500 MG CAPS 2 po BID x 10 days AMOXICILLIN 500 MG CAPS 882057 AMOXICILLIN Inactive PENICILLIN V POTASSIUM 500 MG TABS 1 TID PENICILLIN V POTASSIUM 500 MG TABS 770725 PENICILLIN V POTASSIUM Inactive BACTRIM DS 800-160 MG TABS 1 po BID x 10 days BACTRIM DS 800-160 MG TABS 535185 SULFAMETHOXAZOLE-TRIMETHOPRIM Inactive ZITHROMAX 250 MG TAB 2 po today, then 1 po q days 2-5 ZITHROMAX 250 MG TAB 2184093 AZITHROMYCIN Inactive TAMIFLU 75 MG CAPS 1 bid x 5 days TAMIFLU 75 MG CAPS 660603 OSELTAMIVIR PHOSPHATE Inactive AZITHROMYCIN 250 MG TABS 2 po qd x 1 day, then 1 po qd x 4 days AZITHROMYCIN 250 MG TABS 1598097 AZITHROMYCIN Inactive MEDROL (NISA) 4 MG TABS 6 tabs on day 1, 5 tabs on day 2, 4 tabs on day 3, 3 tabs on day 4, 2 tabs on day 5, 1 tab on day 6 MEDROL ( NISA) 4 MG TABS 551298 METHYLPREDNISOLONE Inactive SUPRAX 400 MG CAPS Take one tablet twice daily for 7 days SUPRAX 400 MG CAPS CEFIXIME Inactive AMITRIPTYLINE HCL 50 MG TAB 1 po q hs for sleep AMITRIPTYLINE HCL 50 MG TAB 218054 AMITRIPTYLINE HCL Inactive ZITHROMAX 250 MG TAB 2 po today, then 1 po q days 2-5 ZITHROMAX 250 MG TAB 4372812 AZITHROMYCIN Inactive Immunizations Vaccine Administration Date Value Standard Description Seasonal influenza vaccine, injectable, containing preservative, for > 3 years old (Afluria, FluLaval, Fluzone, Fluvirin, Fluarix, Agriflu(>=18 yo)) Fluzone (>3 yrs.) [[id number]] Influenza, seasonal, injectable pneumococcal immunization administered Pneumovax 23 [CVX33] pneumococcal polysaccharide vaccine, 23 valent Seasonal influenza vaccine, injectable, containing preservative, for > 3 years old (Afluria, FluLaval, Fluzone, Fluvirin, Fluarix, Agriflu(>=18 yo)) Fluzone (>3 yrs.) [[id number]] Influenza, seasonal, injectable Seasonal influenza vaccine, injectable, containing preservative, for > 3 years old (Afluria, FluLaval, Fluzone, Fluvirin, Fluarix, Agriflu(>=18 yo)) Fluzone (>3 yrs.) [[id number]] Influenza, seasonal, injectable hepatitis B vaccine #1 [...] Measured Encounters Code Encounter Date Provider Facility CPT-93444 Level 3 Est. Patient 16:47:47 CDT Renetta Ryan [facility] CPT-76047 Level 3 Est. Patient 11:04:11 HEAD LIBRARIAN Jani Marrero MD [facility] CPT-38715 Level 3 Est. Patient 12:02:27 HEAD LIBRARIAN Andrei Nichols MD [facility] CPT-11821 Level 3 Est. Patient 12:47:17 HEAD LIBRARIAN Andrei Nichols MD [facility] CPT-34080 Level 3 Est. Patient 14:51:20 HEAD LIBRARIAN Shikha Randolph [facility] CPT-54541 Level 3 Est. Patient 10:42:38 CDT Shikha Randolph [facility] CPT-46252 Level 3 Est. Patient 18:20:39 CDT Prisca Lockwood MD PhD [facility]-77767 Level 3 Est. Patient 16:42:47 HEAD LIBRARIAN Rosalie Boyd [facility] CPT-30889 Level 3 Est. Patient 14:34:36 HEAD LIBRARIAN Rosalie Boyd [facility] CPT-33757 Level 4 Est. Patient 10:23:07 HEAD LIBRARIAN Andrei Nichols MD [facility]-88272 Level 3 Est. Patient 16:47:31 HEAD LIBRARIAN Andrei Nichols MD [facility]-85805 Level 3 Est. Patient 11:59:14 CDT Rosalie Boyd [facility][note 2]-99942 Level 3 Est. Patient 15:30:34 CDT Giovany URBINA [facility] CPT-36899 Level 3 Est. Patient 11:03:03 CDT Rosalie Boyd [facility] CPT-82238 Level 3 Est. Patient 11:08:07 CDT Rosalie Boyd [facility] CPT-21824 Level 3 Est. Patient 14:07:32 CDT Andrei Nichols MD [facility]-31217 Level 3 Est. Patient 17:08:28 CDT Andrei Nichols MD [facility]-80943 Level 3 Est. Patient 13:10:13 CDT Jani Marrero MD [facility]-50675 Level 3 Est. Patient 11:27:12 CDT Jani Marrero MD [facility]-85593 Level 3 Est. Patient 13:44:42 CDT Andrei Nichols MD [facility]-45983 Level 3 Est. Patient 12:34:57 HEAD LIBRARIAN Andrei Nichols MD [facility] CPT-90852 Level 3 Est. Patient 15:30:06 CDT Jani Marrero MD [facility] CPT-39909 Level 3 Est. Patient 21:59:00 CDT Corky Mckeon [facility] CPT-32965 Level 3 Est. Patient 17:12:49 CDT Andrei Nichols MD [facility] CPT-87061 Level 4 Est. Patient 12:27:45 HEAD LIBRARIAN Andrei Nichols MD [facility] CPT-04120 Level 3 Est. Patient 12:15:34 HEAD LIBRARIAN Andrei Ncihols MD [facility] Procedures Code Procedure Name Date Entry Date Standard Description CPT-27902 Knee, left, 3V - XRAY USE ONLY 14:53:02 CDT CPT-OV Office Visit 11:36:40 CDT CPT-09971 Administration 2+ single or combination vaccines inc oral 07:50:30 CDT CPT-03872 Administration single or combination vaccine inc oral 07 :50:30 CDT CPT-47262 Pneumovax 07:50:30 CDT CPT-12396 Influenza split virus > age 3 07:50:30 CDT CPT-OV Office Visit 11:49:10 HEAD LIBRARIAN CPT-21178 Nexplanon Removal with Reinsertion 14:02:06 HEAD LIBRARIAN CPT-J7307 Nexplanon (Implant) 14:02:06 HEAD LIBRARIAN CPT-OV Office Visit 14:02:06 HEAD LIBRARIAN CPT-OV Office Visit 11:58:04 HEAD LIBRARIAN CPT-57230 Administration single or combination vaccine inc oral 11 :31:07 CDT CPT-17980 Influenza split virus > age 3 11:31:07 CDT CPT-33264 Administration single or combination vaccine inc oral 10 :34:13 CDT CPT-33348 Influenza split virus > age 3 10:34:13 CDT
--- OUTSIDE RECORDS SUMMARY | 2017-01-02 18:15 | XMS REPORT ---
Author Author [facility] Medical Staff Organization [facility] Address [address], [place] [id number] Phone [phone] Care Team Providers Care Case Manager Specialist Name Role Phone FELIPE MONROE MD PP [phone] Summary purpose TRANSITION OF CARE AUTO GENERATION [...] visit Relevant diagnostic tests and/or laboratory data No authorized results are available for this patient visit History of procedures Procedure Code Code Type Description Date Performed Performing Physician 05811 CPT-4 EMERGENCY DEPT VISIT 02-12-2015 ANTONETTE ULLOA 18402 CPT-4 EMERGENCY DEPT VISIT 02-12-2015 ANTONETTE ULLOA Functional status Functional Status Finding Observation Time Abdomen Appearance flat :28 Abdomen soft :28 Kapoor no :28 Urination normal :28 Quality sym/unlabored :28 Cough absent :28 Secretions no :28 Airway natural :28 Chest Tube no :28 Oxygen no :20 Temp >100.4 no : Temp <96.8 no :28 Chills with rigors no :28 HR > 90bpm no :28 Respirations > 20 no :28 Systolic <90 no [id number] headache stiff neck no :28 Rapid Resp no :28 Nursing Note Discharge instructions given to pt et explained to see Justo Servin today. Pt ambualated out to car in good condition. :20 Vital signs Type Value Date Respiration Rate 20breaths per minute :20 Pulse 97beats per minute :20 Oxygen Saturation 98% :20 BP Systolic 116mmHg :20 BP Diastolic 69mmHg :20 Temperature 98F :20 Social history Type Value Smoking Status CURRENT EVERY DAY SMOKER Treatment Plan No treatment plan text is available for this visit. Hospital discharge instructions Dismissal Condition good Disposition on DC home DC Inst/Educ Give yes Med/Side Effects Rev yes Flu Vac 2014 Tetanus Vac 2014
--- OUTSIDE RECORDS SUMMARY | 2017-01-02 18:17 | XMS REPORT | Clinical Summary ---
Author Author Admin, QIE Organization [facility] [employer] Address Unknown Phone Unavailable Allergies, Adverse Reactions, [...] Sinusitis, frontal, acute 461.1 Resolved Shikha Yokum GAS REGULATOR REPAIRER Acute frontal sinusitis Pharyngitis 462 Resolved Shikha Yokum GAS REGULATOR REPAIRER Acute pharyngitis Scabies 133.0 Resolved Shikha Yokum GAS REGULATOR REPAIRER Scabies Folliculitis 704.8 Resolved Shikha Yokum GAS REGULATOR REPAIRER Other specified diseases of hair and hair [...] Reagan PA ECZEMA ICD-692.9 Inactive Shikha Tomasa GAS REGULATOR REPAIRER OTITIS MEDIA ICD-382.9 Inactive Ary Kirk PA 09/16 PHARYNGITIS ICD-462 Inactive Andrei Nichols MD UNSPECIFIED DISORDER TEETH&SUPPORTING STRUCTURES ICD-525.9 12/29 Inactive Shikha Randolph GAS REGULATOR REPAIRER PHARYNGITIS-ACUTE ICD-462 Inactive Rosalie Boyd GAS REGULATOR REPAIRER DIARRHEA ICD-787.91 Inactive Andrei Nichols MD SHOULDER PAIN ICD-719.41 Inactive Shikha Randolph GAS REGULATOR REPAIRER NAUSEA AND VOMITING ICD-787.01 Inactive Andrei Nichols [...] PhD Dental caries ICD-521.00 Inactive Shikha Yokum GAS REGULATOR REPAIRER Tooth pain ICD-525.9 Inactive Prisca Lockwood MD PhD Head lice ICD-132.0 Inactive Prisca Lockwood MD PhD Upper respiratory infection ICD-465.9 Inactive Prisca Lockwood MD PhD Sinusitis, frontal, acute ICD-461.1 Inactive Shikha Yokum GAS REGULATOR REPAIRER Pharyngitis ICD-462 Inactive Shikha Yokum GAS REGULATOR REPAIRER 2013 Scabies ICD-133.0 Inactive Shikha Yokum GAS REGULATOR REPAIRER 12/29 Folliculitis ICD-704.8 Inactive Shikha Yokum GAS REGULATOR REPAIRER Cough ICD-786.2 Inactive Andrei Nichols MD SINUSITIS, ACUTE ICD-461.9 Inactive Jani Marrero MD Medication List Medication Instructions Start Date Stop Date Generic Name NDC Status Provider Patient Instruction MELOXICAM 15 MG TABS 1 daily for knee pain MELOXICAM [id number] Active Renetta Ryan APRN Active CYCLOBENZAPRINE HCL 10 MG TABS 1 three times a day as needed for muscle spasm CYCLOBENZAPRINE HCL 15453907254 Active Renetta Ryan APRN Active BUSPIRONE HCL 10 MG ORAL TABS 2 TABS PO BID BUSPIRONE HCL 40067191167 Active Renetta Ryan APRN Active AMITRIPTYLINE HCL 75 MG ORAL TABS 1 TAB Q HS AMITRIPTYLINE HCL 69033436986 Active Renetta Ryan APRN Active PROAIR HFA 108 (90 BASE) MCG/ACT AERS 2 puffs four times a day as needed 2015 ALBUTEROL SULFATE 45781943457 No Longer Active Renetta Ryan APRN Active KLONOPIN 1 MG TABS 1 tablet TID CLONAZEPAM 64270065940 No Longer Active Renetta Ryan APRN Active ZITHROMAX 250 MG TAB 2 po today, then 1 po q days 2-5 AZITHROMYCIN 46296472599 No Longer Active Jani Marrero MD Active IBUPROFEN 800 MG TABS 1 tab PO TID IBUPROFEN 63473294544 Active Jani Marrero MD Active WELLBUTRIN SR 100 MG ORAL [id number] 1 TAB PO DAILY BUPROPION HCL 89850267789 Active Jani Marrero MD Active AMITRIPTYLINE HCL 50 MG TAB 1 po q hs for sleep AMITRIPTYLINE HCL 92770391531 No Longer Active Jani Marrero MD Active PROMETHAZINE HCL 25 MG TABS 1 four times a day as needed for vomiting PROMETHAZINE HCL 01977068580 No Longer Active Jani Marrero MD Active AMOXICILLIN 500 MG TABS 2 tabs twice a day for 10 days AMOXICILLIN 36769323198 No Longer Active Jani Marrero MD Active SEROQUEL 200 MG ORAL TABS Take 1 tablet at hs QUETIAPINE FUMARATE 28097615783 No Longer Active Jani Marrero MD Active FETZIMA 40 MG ORAL [id number] LEVOMILNACIPRAN HCL 00669383306 No Longer Active Jani Marrero MD Active PROAIR HFA 108 (90 BASE) MCG/ACT AERS 2 puffs four times a day as needed 2011 ALBUTEROL SULFATE 26093067237 No Longer Active Alondra Denton MD Active IBUPROFEN 600 MG TAB 1 tablet three times a day as needed IBUPROFEN 29206430724 No Longer Active Alondra Denton MD Active LATUDA 20 MG TABS 1 tab at at night with meal LURASIDONE HCL 02085398327 No Longer Active Alondra Denton MD Active CYCLOBENZAPRINE HCL 10 MG TABS 1/2 to 1 tablet every 4 hours CYCLOBENZAPRINE HCL 90769342246 No Longer Active Alondra Denton MD Active CYCLOBENZAPRINE HCL 10 MG TABS 1/2 to 1 tablet by mouth three times daily as needed for muscle spasm/pain CYCLOBENZAPRINE HCL 65734605255 No Longer Active Alondra Denton MD Active SUPRAX 400 MG CAPS Take one tablet twice daily for 7 days CEFIXIME 61374664205 No Longer Active Shikha Yokum GAS REGULATOR REPAIRER Active TESSALON PERLES 100 MG CAP 1 tablet by mouth 3 times daily 01/20 BENZONATATE 99675683369 No Longer Active Shikha Yokum GAS REGULATOR REPAIRER Active HYDROXYZINE HCL 10 MG TABS 1 to 2 three times a day as needed for itching HYDROXYZINE HCL 60805229205 No Longer Active Shikha Yokum GAS REGULATOR REPAIRER Active CYCLOBENZAPRINE HCL 10 MG TABS 1 three times a day as needed for back spasm CYCLOBENZAPRINE HCL 04524262429 No Longer Active Shikha Yokum GAS REGULATOR REPAIRER Active SEROQUEL 200 MG TABS 1 tablet at bedtime. QUETIAPINE FUMARATE 88650085576 No Longer Active Shikha Yokum GAS REGULATOR REPAIRER Active BACTRIM DS 800-160 MG TAB 1 tab by mouth twice daily TRIMETHOPRIM-SULFAMETHOXAZOLE 41806347422 No Longer Active Shikha Yokum GAS REGULATOR REPAIRER Active STROMECTOL 3 MG TABS 5 tablets by mouth one time on an empty stomach, may repeat in 2 weeks if needed IVERMECTIN 88873947476 No Longer Active Shikha Yokum GAS REGULATOR REPAIRER Active PERMETHRIN 5 % CREA apply neck to toes tonight and then rinse off in morning. repeat at 7 days PERMETHRIN 31137594032 No Longer Active Andrei Nichols MD Active MEDROL (NISA) 4 MG TABS 6 tabs on day 1, 5 tabs on day 2, 4 tabs on day 3, 3 tabs on day 4, 2 tabs on day 5, 1 tab on day 6 METHYLPREDNISOLONE 90282266940 No Longer Active Prisca Lockwood MD PhD Active AZITHROMYCIN 250 MG TABS 2 po qd x 1 day, then 1 po qd x 4 days AZITHROMYCIN 62331212616 No Longer Active Prisca Lockwood MD PhD Active CELEXA 20 MG TABS Take 1.5 tablets daily CITALOPRAM HYDROBROMIDE 38610649795 No Longer Active Prisca Lockwood MD PhD Active LOMOTIL 2.5-0.025 MG TAB 1 to 2 four times a day as needed for diarrhea 01/21 DIPHENOXYLATE-ATROPINE 45515772604 No Longer Active Prisca Lockwood MD PhD Active TAMIFLU 75 MG CAPS 1 bid x 5 days OSELTAMIVIR PHOSPHATE 57772112543 No Longer Active Rosalie Boyd APRN Active ZITHROMAX 250 MG TAB 2 po today, then 1 po q days 2-5 AZITHROMYCIN 90374622468 No Longer Active Rosalie Boyd APRN Active STROMECTOL 3 MG TABS 6 pills by mouth x 1; repeat in 10 days 2012 IVERMECTIN 09321114969 No Longer Active Rosalie Boyd APRN Active TYLENOL WITH CODEINE #3 300-30 MG TABS ONE TABLET FOUR TIMES A DAY NEEDED for pain or cough ACETAMINOPHEN-CODEINE 89091378935 No Longer Active Rosalie Boyd APRN Active GUAIFENESIN-CODEINE 100-10 MG/5ML SYRP 1 tsp PO q6h PRN cough GUAIFENESIN-CODEINE 98031810227 No Longer Active Rosalie Oliver GAS REGULATOR REPAIRER Active KEFLEX 500 MG CAP 1 po qid CEPHALEXIN 07896945390 No Longer Active Rosalie Boyd APRN Active GUAIFENESIN-CODEINE 100-10 MG/5ML SYRP 1 tsp PO q6h PRN cough GUAIFENESIN-CODEINE 64992497849 No Longer Active Rosalie Boyd APRN Active PROMETHAZINE HCL 25 MG TABS 1 four times a day as needed for nausea/vomiting PROMETHAZINE HCL 41617398470 No Longer Active Rosalie Boyd APRN Active LAMISIL AT 1 % CREA apply bid to rash TERBINAFINE HCL 96348145695 No Longer Active Andrei Nichols MD Active AMOXICILLIN 400 MG/5ML SUSR 6ml three times a day for 10 days AMOXICILLIN 59747118376 No Longer Active Andrei Nichols MD Active PROMETHAZINE HCL 25 MG TABS take 1 po Q 8 hours prn nausea and vomiting 12/11 PROMETHAZINE HCL 78243776871 No Longer Active Andrei Nichols MD Active BACTROBAN 2 % OINTMENT Apply bid to affected area MUPIROCIN 31937446908 No Longer Active Andrei Nichols MD Active GUAIFENESIN-CODEINE 100-10 MG/5ML SYRP 1 tsp PO q6h PRN cough GUAIFENESIN-CODEINE 66036796551 No Longer Active Andrei Nichols MD Active BACTRIM DS 800-160 MG TABS 1 po BID x 10 days SULFAMETHOXAZOLE-TRIMETHOPRIM 89986569756 No Longer Active Rosalie Boyd APRN Active GUAIFENESIN-CODEINE 100-10 MG/5ML SYRP 1-2 tsp PO q6h PRN cough GUAIFENESIN-CODEINE 43843715115 No Longer Active Giovany URBINA Active PREDNISONE 20 MG TABS 1 tablet by mouth twice daily for 2 days, then 1 daily for 2 days PREDNISONE 71017083843 No Longer Active Giovany URBINA Active HYDROCODONE-ACETAMINOPHEN 5-325 MG TABS 1/2 to 1 po q 4 hours prn pain 11/13 HYDROCODONE-ACETAMINOPHEN 20095487720 No Longer Active Rosalie Boyd GAS REGULATOR REPAIRER Active PENICILLIN V POTASSIUM 500 MG TABS 1 TID PENICILLIN V POTASSIUM 82331504348 No Longer Active Andrei Nichols MD Active SEROQUEL 50 MG TABS 1 tablet at HS QUETIAPINE FUMARATE 55440316544 No Longer Active Andrei Nichols MD Active SEROQUEL 100 MG TABS 1 tablet at HS QUETIAPINE FUMARATE 37836766432 No Longer Active Andrei Nichols MD Active TRIAMCINOLONE ACETONIDE 0.1 % CREA apply three times daily prn rash TRIAMCINOLONE ACETONIDE 24252782191 No Longer Active Andrei Nichols MD Active AMOXICILLIN 500 MG TABS take one tab po tid x 10 days AMOXICILLIN 94197438792 No Longer Active Andrei Nichols MD Active CELEXA 20 MG TABS 1and 1/2 tablets by mouth daily CITALOPRAM HYDROBROMIDE 68095834248 No Longer Active Ary Pool PA Active FLEXERIL 10 MG TAB 1/2 to one tablet every 12 hours as needed CYCLOBENZAPRINE HCL 48897280305 No Longer Active Ary Pool PA Active CLONAZEPAM 1 MG TABS take at bedtime CLONAZEPAM 36899035605 No Longer Active Ary Pool PA Active PERMETHRIN 5 % CREA applyhead to toes tonight and then rinse off in 18 hours. repeat at 7 days if needed. PERMETHRIN 52355184063 No Longer Active Ary Pool PA Active AMOXICILLIN 500 MG CAPS 2 po BID x 10 days AMOXICILLIN 95026295953 No Longer Active Andrei Nichols MD Active TYLENOL WITH CODEINE #3 300-30 MG TABS 1 to 2 four times a day as needed for pain ACETAMINOPHEN-CODEINE 29688909608 No Longer Active Reta Hampton Active PREDNISONE 20 MG TAB 2 tabs daily for 5 days, then 1 daily for 5 days PREDNISONE 33787495651 No Longer Active Reta Hampton Active LOMOTIL 2.5-0.025 MG TAB 1 to 2 four times a day as needed for diarrhea 05/28 DIPHENOXYLATE-ATROPINE 22520270962 No Longer Active Reta Hampton Active ALPRAZOLAM 1 MG TABS 1 tab tid ALPRAZOLAM 66816955460 No Longer Active eRta Hampton Active AMOXICILLIN 500 MG CAPS 2 po BID x 10 days AMOXICILLIN 18912060825 No Longer Active Andrei Nichols MD Active AMOXICILLIN 500 MG TABS Take one tab by mouth 3 times daily, morning, afternoon and evening for 7 days. AMOXICILLIN 52937587031 No Longer Active Virginia Alejandra RN Active VICODIN 5-300 MG TABS one tab PO Q 6 hours PRN pain HYDROCODONE-ACETAMINOPHEN 05448684616 No Longer Active Virginia Alejandra RN Active FLAGYL 500 MG TABS four tabs PO one time METRONIDAZOLE 74533627008 No Longer Active Alondra Denton MD Active MELOXICAM 15 MG TABS 1 po q day for pain with food MELOXICAM 13205957738 No Longer Active Alondra Denton MD Active AMOXICILLIN 400 MG/5ML SUSR 5ml po TID x 10 days AMOXICILLIN 01933473413 No Longer Active Jani Marrero MD Active NIX CREME RINSE 1 % LIQD apply as directed tonight, repeat at 7 days PERMETHRIN 80260962183 No Longer Active Corky Mckeon DO Active QVAR 40 MCG/ACT AERS one puff three times a day as needed BECLOMETHASONE DIPROPIONATE 83944027330 No Longer Active Andrei Nichols MD Active METHOCARBAMOL 500 MG TABS 1 to 2 qid prn back spasm METHOCARBAMOL 42120476529 No Longer Active Andrei Nichols MD Active VISTARIL 25 MG CAPS 1-2 tablets three times a day as needed HYDROXYZINE PAMOATE 85262246700 No Longer Active Andrei Nichols MD Active SEROQUEL 100 MG TABS 1/2 TABLET at hs QUETIAPINE FUMARATE 58952076491 No Longer Active Aicha Rizzo RN Active BACTRIM DS 800-160 MG TAB 1 tab by mouth twice daily TRIMETHOPRIM-SULFAMETHOXAZOLE 69829552653 No Longer Active Prisca Lockwood MD PhD Active CYCLOBENZAPRINE HCL 10 MG TABS TAKE 1/2 - 1 TAB EVERY 12 HOURS NEEDED 2010 CYCLOBENZAPRINE HCL 64004637404 No Longer Active Andrei Nichols MD Active CYCLOBENZAPRINE HCL 10 MG TABS TAKE 1/2 - 1 TAB EVERY 12 HOURS NEEDED 2010 CYCLOBENZAPRINE HCL 10 MG TABS 056074 CYCLOBENZAPRINE HCL Inactive SEROQUEL 100 MG TABS 1/2 TABLET at hs SEROQUEL 100 MG TABS 065174 QUETIAPINE FUMARATE Inactive VISTARIL 25 MG CAPS 1-2 tablets three times a day as needed VISTARIL 25 MG CAPS 260823 HYDROXYZINE PAMOATE Inactive METHOCARBAMOL 500 MG TABS 1 to 2 qid prn back spasm METHOCARBAMOL 500 MG TABS 512543 METHOCARBAMOL Inactive QVAR 40 MCG/ACT AERS one puff three times a day as needed QVAR 40 MCG/ACT AERS BECLOMETHASONE DIPROPIONATE Inactive NIX CREME RINSE 1 % LIQD apply as directed carlotta, repeat at 7 days NIX CREME RINSE 1 % LIQD PERMETHRIN Inactive MELOXICAM 15 MG TABS 1 po q day for pain with food MELOXICAM 15 MG TABS 966121 MELOXICAM Inactive ALPRAZOLAM 1 MG TABS 1 tab tid ALPRAZOLAM 1 MG TABS 654214 ALPRAZOLAM Inactive LOMOTIL 2.5-0.025 MG TAB 1 to 2 four times a day as needed for diarrhea 05/28 LOMOTIL 2.5-0.025 MG TAB 1521078 DIPHENOXYLATE-ATROPINE Inactive PREDNISONE 20 MG TAB 2 tabs daily for 5 days, then 1 daily for 5 days PREDNISONE 20 MG TAB 997958 PREDNISONE Inactive TYLENOL WITH CODEINE #3 300-30 MG TABS 1 to 2 four times a day as needed for pain TYLENOL WITH CODEINE #3 300-30 MG TABS ACETAMINOPHEN-CODEINE Inactive PERMETHRIN 5 % CREA applyhead to toes tonight and then rinse off in 18 hours. repeat at 7 days if needed. PERMETHRIN 5 % CREA 442370 PERMETHRIN Inactive CLONAZEPAM 1 MG TABS take at bedtime CLONAZEPAM 1 MG TABS 628344 CLONAZEPAM Inactive FLEXERIL 10 MG TAB 1/2 to one tablet every 12 hours as needed FLEXERIL 10 MG TAB CYCLOBENZAPRINE HCL Inactive CELEXA 20 MG TABS 1and 1/2 tablets by mouth daily CELEXA 20 MG TABS 822855 CITALOPRAM HYDROBROMIDE Inactive AMOXICILLIN 500 MG TABS take one tab po tid x 10 days AMOXICILLIN 500 MG TABS 994509 AMOXICILLIN Inactive TRIAMCINOLONE ACETONIDE 0.1 % CREA apply three times daily prn rash TRIAMCINOLONE ACETONIDE 0.1 % CREA 9796938 TRIAMCINOLONE ACETONIDE Inactive SEROQUEL 100 MG TABS 1 tablet at HS SEROQUEL 100 MG TABS 257337 QUETIAPINE FUMARATE Inactive SEROQUEL 50 MG TABS 1 tablet at HS SEROQUEL 50 MG TABS 280396 QUETIAPINE FUMARATE Inactive HYDROCODONE-ACETAMINOPHEN 5-325 MG TABS 1/2 to 1 po q 4 hours prn pain 11/13 HYDROCODONE-ACETAMINOPHEN 5-325 MG TABS 467904 HYDROCODONE- ACETAMINOPHEN Inactive PREDNISONE 20 MG TABS 1 tablet by mouth twice daily for 2 days, then 1 daily for 2 days PREDNISONE 20 MG TABS 864635 PREDNISONE Inactive GUAIFENESIN-CODEINE 100-10 MG/5ML SYRP 1-2 tsp PO q6h PRN cough GUAIFENESIN-CODEINE 100-10 MG/5ML SYRP 882095 GUAIFENESIN-CODEINE Inactive GUAIFENESIN-CODEINE 100-10 MG/5ML SYRP 1 tsp PO q6h PRN cough GUAIFENESIN-CODEINE 100-10 MG/5ML SYRP 163271 GUAIFENESIN-CODEINE Inactive BACTROBAN 2 % OINTMENT Apply bid to affected area BACTROBAN 2 % OINTMENT 428461 MUPIROCIN Inactive PROMETHAZINE HCL 25 MG TABS take 1 po Q 8 hours prn nausea and vomiting 12/11 PROMETHAZINE HCL 25 MG TABS 378077 PROMETHAZINE HCL Inactive AMOXICILLIN 400 MG/5ML SUSR 6ml three times a day for 10 days AMOXICILLIN 400 MG/5ML SUSR 737352 AMOXICILLIN Inactive LAMISIL AT 1 % CREA apply bid to rash LAMISIL AT 1 % CREA 282545 TERBINAFINE HCL Inactive PROMETHAZINE HCL 25 MG TABS 1 four times a day as needed for nausea/vomiting PROMETHAZINE HCL 25 MG TABS 615343 PROMETHAZINE HCL Inactive GUAIFENESIN-CODEINE 100-10 MG/5ML SYRP 1 tsp PO q6h PRN cough GUAIFENESIN-CODEINE 100-10 MG/5ML SYRP 908164 GUAIFENESIN-CODEINE Inactive KEFLEX 500 MG CAP 1 po qid KEFLEX 500 MG CAP 554126 CEPHALEXIN Inactive GUAIFENESIN-CODEINE 100-10 MG/5ML SYRP 1 tsp PO q6h PRN cough GUAIFENESIN-CODEINE 100-10 MG/5ML SYRP 239792 GUAIFENESIN-CODEINE Inactive TYLENOL WITH CODEINE #3 300-30 MG TABS ONE TABLET FOUR TIMES A DAY NEEDED for pain or cough TYLENOL WITH CODEINE #3 300-30 MG TABS ACETAMINOPHEN-CODEINE Inactive STROMECTOL 3 MG TABS 6 pills by mouth x 1; repeat in 10 days 2012 STROMECTOL 3 MG TABS 448915 IVERMECTIN Inactive LOMOTIL 2.5-0.025 MG TAB 1 to 2 four times a day as needed for diarrhea 01/21 LOMOTIL 2.5-0.025 MG TAB 8991440 DIPHENOXYLATE-ATROPINE Inactive CELEXA 20 MG TABS Take 1.5 tablets daily CELEXA 20 MG TABS 960432 CITALOPRAM HYDROBROMIDE Inactive PERMETHRIN 5 % CREA apply neck to toes tonight and then rinse off in morning. repeat at 7 days PERMETHRIN 5 % CREA 390567 PERMETHRIN Inactive STROMECTOL 3 MG TABS 5 tablets by mouth one time on an empty stomach, may repeat in 2 weeks if needed STROMECTOL 3 MG TABS 189416 IVERMECTIN Inactive BACTRIM DS 800-160 MG TAB 1 tab by mouth twice daily BACTRIM DS 800-160 MG TAB 506837 TRIMETHOPRIM-SULFAMETHOXAZOLE Inactive SEROQUEL 200 MG TABS 1 tablet at bedtime. SEROQUEL 200 MG TABS 254091 QUETIAPINE FUMARATE Inactive CYCLOBENZAPRINE HCL 10 MG TABS 1 three times a day as needed for back spasm CYCLOBENZAPRINE HCL 10 MG TABS 869312 CYCLOBENZAPRINE HCL Inactive HYDROXYZINE HCL 10 MG TABS 1 to 2 three times a day as needed for itching HYDROXYZINE HCL 10 MG TABS 570483 HYDROXYZINE HCL Inactive TESSALON PERLES 100 MG CAP 1 tablet by mouth 3 times daily 01/20 TESSALON PERLES 100 MG CAP 022079 BENZONATATE Inactive CYCLOBENZAPRINE HCL 10 MG TABS 1/2 to 1 tablet by mouth three times daily as needed for muscle spasm/pain CYCLOBENZAPRINE HCL 10 MG TABS 267372 CYCLOBENZAPRINE HCL Inactive CYCLOBENZAPRINE HCL 10 MG TABS 1/2 to 1 tablet every 4 hours CYCLOBENZAPRINE HCL 10 MG TABS 614642 CYCLOBENZAPRINE HCL Inactive LATUDA 20 MG TABS 1 tab at at night with meal LATUDA 20 MG TABS LURASIDONE HCL Inactive IBUPROFEN 600 MG TAB 1 tablet three times a day as needed IBUPROFEN 600 MG TAB 388222 IBUPROFEN Inactive PROAIR HFA 108 (90 BASE) MCG/ACT AERS 2 puffs four times a day as needed 2011 PROAIR HFA 108 (90 BASE) MCG/ACT AERS ALBUTEROL SULFATE Inactive FETZIMA 40 MG ORAL [id number] FETZIMA 40 MG ORAL [id number] LEVOMILNACIPRAN HCL Inactive SEROQUEL 200 MG ORAL TABS Take 1 tablet at hs SEROQUEL 200 MG ORAL TABS 581316 QUETIAPINE FUMARATE Inactive AMOXICILLIN 500 MG TABS 2 tabs twice a day for 10 days AMOXICILLIN 500 MG TABS 682599 AMOXICILLIN Inactive PROMETHAZINE HCL 25 MG TABS 1 four times a day as needed for vomiting PROMETHAZINE HCL 25 MG TABS 771871 PROMETHAZINE HCL Inactive KLONOPIN 1 MG TABS 1 tablet TID KLONOPIN 1 MG TABS 209662 CLONAZEPAM Inactive PROAIR HFA 108 (90 BASE) MCG/ACT AERS 2 puffs four times a day as needed 2015 PROAIR HFA 108 (90 BASE) MCG/ACT AERS ALBUTEROL SULFATE Inactive BACTRIM DS 800-160 MG TAB 1 tab by mouth twice daily BACTRIM DS 800-160 MG TAB 653866 TRIMETHOPRIM-SULFAMETHOXAZOLE Inactive AMOXICILLIN 400 MG/5ML SUSR 5ml po TID x 10 days AMOXICILLIN 400 MG/5ML SUSR 702795 AMOXICILLIN Inactive FLAGYL 500 MG TABS four tabs PO one time FLAGYL 500 MG TABS 873756 METRONIDAZOLE Inactive AMOXICILLIN 500 MG TABS Take one tab by mouth 3 times daily, morning, afternoon and evening for 7 days. AMOXICILLIN 500 MG TABS 965279 AMOXICILLIN Inactive AMOXICILLIN 500 MG CAPS 2 po BID x 10 days AMOXICILLIN 500 MG CAPS 465162 AMOXICILLIN Inactive AMOXICILLIN 500 MG CAPS 2 po BID x 10 days AMOXICILLIN 500 MG CAPS 070449 AMOXICILLIN Inactive PENICILLIN V POTASSIUM 500 MG TABS 1 TID PENICILLIN V POTASSIUM 500 MG TABS 343123 PENICILLIN V POTASSIUM Inactive BACTRIM DS 800-160 MG TABS 1 po BID x 10 days BACTRIM DS 800-160 MG TABS 392323 SULFAMETHOXAZOLE-TRIMETHOPRIM Inactive ZITHROMAX 250 MG TAB 2 po today, then 1 po q days 2-5 ZITHROMAX 250 MG TAB 2014944 AZITHROMYCIN Inactive TAMIFLU 75 MG CAPS 1 bid x 5 days TAMIFLU 75 MG CAPS 868982 OSELTAMIVIR PHOSPHATE Inactive AZITHROMYCIN 250 MG TABS 2 po qd x 1 day, then 1 po qd x 4 days AZITHROMYCIN 250 MG TABS 9045472 AZITHROMYCIN Inactive MEDROL (NISA) 4 MG TABS 6 tabs on day 1, 5 tabs on day 2, 4 tabs on day 3, 3 tabs on day 4, 2 tabs on day 5, 1 tab on day 6 MEDROL ( NISA) 4 MG TABS 204166 METHYLPREDNISOLONE Inactive SUPRAX 400 MG CAPS Take one tablet twice daily for 7 days SUPRAX 400 MG CAPS CEFIXIME Inactive AMITRIPTYLINE HCL 50 MG TAB 1 po q hs for sleep AMITRIPTYLINE HCL 50 MG TAB 327853 AMITRIPTYLINE HCL Inactive ZITHROMAX 250 MG TAB 2 po today, then 1 po q days 2-5 ZITHROMAX 250 MG TAB 7928863 AZITHROMYCIN Inactive Immunizations Vaccine Administration Date Value Standard Description Seasonal influenza vaccine, injectable, containing preservative, for > 3 years old (Afluria, FluLaval, Fluzone, Fluvirin, Fluarix, Agriflu(>=18 yo)) Fluzone (>3 yrs.) [DSG225] Influenza, seasonal, injectable pneumococcal immunization administered Pneumovax 23 [CVX33] pneumococcal polysaccharide vaccine, 23 valent Seasonal influenza vaccine, injectable, containing preservative, for > 3 years old (Afluria, FluLaval, Fluzone, Fluvirin, Fluarix, Agriflu(>=18 yo)) Fluzone (>3 yrs.) [RXT816] Influenza, seasonal, injectable Seasonal influenza vaccine, injectable, containing preservative, for > 3 years old (Afluria, FluLaval, Fluzone, Fluvirin, Fluarix, Agriflu(>=18 yo)) Fluzone (>3 yrs.) [LDR004] Influenza, seasonal, injectable hepatitis B vaccine #1 [...] Measured Encounters Code Encounter Date Provider Facility CPT-34870 Level 3 Est. Patient 16:47:47 CDT Renetta Ryan [facility] CPT-56800 Level 3 Est. Patient 11:04:11 CONSTRUCTION SUPERVISOR/CARPENTER Jani Marrero MD [facility] CPT-53863 Level 3 Est. Patient 12:02:27 CONSTRUCTION SUPERVISOR/CARPENTER Andrei Nichols MD [facility] CPT-85591 Level 3 Est. Patient 12:47:17 CONSTRUCTION SUPERVISOR/CARPENTER Andrei Nichols MD [facility] CPT-28803 Level 3 Est. Patient 14:51:20 CONSTRUCTION SUPERVISOR/CARPENTER Shikha Randolph [facility] CPT-45587 Level 3 Est. Patient 10:42:38 CDT Shikha Randolph [facility] CPT-68481 Level 3 Est. Patient 18:20:39 CDT Prisca Lockwood MD PhD [facility]-58201 Level 3 Est. Patient 16:42:47 CONSTRUCTION SUPERVISOR/CARPENTER Rosalie Boyd [facility] CPT-78757 Level 3 Est. Patient 14:34:36 CONSTRUCTION SUPERVISOR/CARPENTER Rosalie Boyd [facility] CPT-11971 Level 4 Est. Patient 10:23:07 CONSTRUCTION SUPERVISOR/CARPENTER Andrei Nichols MD [facility]-21716 Level 3 Est. Patient 16:47:31 CONSTRUCTION SUPERVISOR/CARPENTER Andrei Nichols MD [facility]-53887 Level 3 Est. Patient 11:59:14 CDT Rosalie Oliver [facility]-06054 Level 3 Est. Patient 15:30:34 CDT Giovany URBINA [facility]-92151 Level 3 Est. Patient 11:03:03 CDT Rosalie Boyd [facility] CPT-64735 Level 3 Est. Patient 11:08:07 CDT Rosalie Boyd [facility]-38507 Level 3 Est. Patient 14:07:32 CDT Andrei Nichols MD [facility]-23670 Level 3 Est. Patient 17:08:28 CDT Andrei Nichols MD [facility]-92731 Level 3 Est. Patient 13:10:13 CDT Jani Marrero MD [facility]-99600 Level 3 Est. Patient 11:27:12 CDT Jani Marrero MD [facility]-84376 Level 3 Est. Patient 13:44:42 CDT Andrei Nichols MD [facility]-57056 Level 3 Est. Patient 12:34:57 CONSTRUCTION SUPERVISOR/CARPENTER Andrei Nichols MD [facility] CPT-75334 Level 3 Est. Patient 15:30:06 CDT Jani Marrero MD [facility] CPT-52284 Level 3 Est. Patient 21:59:00 CDT Corky Mckeon [facility] CPT-47340 Level 3 Est. Patient 17:12:49 CDT Andrei Nichols MD [facility] CPT-40797 Level 4 Est. Patient 12:27:45 CONSTRUCTION SUPERVISOR/CARPENTER Andrei Nichols MD [facility] CPT-98010 Level 3 Est. Patient 12:15:34 CONSTRUCTION SUPERVISOR/CARPENTER Andrei Nichols MD [facility] Procedures Code Procedure Name Date Entry Date Standard Description CPT-18385 Knee, left, 3V - XRAY USE ONLY 14:53:02 CDT CPT-OV Office Visit 11:36:40 CDT CPT-87444 Administration 2+ single or combination vaccines inc oral 07:50:30 CDT CPT-23805 Administration single or combination vaccine inc oral 07 :50:30 CDT CPT-27222 Pneumovax 07:50:30 CDT CPT-95809 Influenza split virus > age 3 07:50:30 CDT CPT-OV Office Visit 11:49:10 CONSTRUCTION SUPERVISOR/CARPENTER CPT-27953 Nexplanon Removal with Reinsertion 14:02:06 CONSTRUCTION SUPERVISOR/CARPENTER CPT-J7307 Nexplanon (Implant) 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
--- OUTSIDE RECORDS SUMMARY | 2017-01-02 18:19 | XMS REPORT | Clinical Summary ---
Author Author Admin, E Organization [facility] Address Unknown Phone Unavailable Allergies, Adverse [...] frontal, acute 461.1 Resolved Shikha Yokum CHIEF INVESTMENT OFFICER Acute frontal sinusitis Pharyngitis 462 Resolved Shikha Yokum CHIEF INVESTMENT OFFICER Acute pharyngitis Scabies 133.0 Resolved Shikha Yokum CHIEF INVESTMENT OFFICER Scabies Folliculitis 704.8 Resolved Shikha Yokum CHIEF INVESTMENT OFFICER Other specified diseases of hair and hair [...] Pool PA ECZEMA ICD-692.9 Inactive Shikhaciro Lockeum CHIEF INVESTMENT OFFICER OTITIS MEDIA ICD-382.9 Inactive Ary Pool PA 09/16 PHARYNGITIS ICD-462 Inactive Andrei Nichols MD UNSPECIFIED DISORDER TEETH&SUPPORTING STRUCTURES ICD-525.9 12/29 Inactive Shikha Randolph CHIEF INVESTMENT OFFICER PHARYNGITIS-ACUTE ICD-462 Inactive Rosalie Boyd CHIEF INVESTMENT OFFICER DIARRHEA ICD-787.91 Inactive Andrei Nichols MD SHOULDER PAIN ICD-719.41 Inactive Shikha Randolph CHIEF INVESTMENT OFFICER NAUSEA AND VOMITING ICD-787.01 Inactive Andrei Nichols [...] PhD Dental caries ICD-521.00 Inactive Shikha Yokum CHIEF INVESTMENT OFFICER Tooth pain ICD-525.9 Inactive Prisca Lockwood MD PhD Head lice ICD-132.0 Inactive Prisca Lockwood MD PhD Upper respiratory infection ICD-465.9 Inactive Prisca Lockwood MD PhD Sinusitis, frontal, acute ICD-461.1 Inactive Shikha Yokum CHIEF INVESTMENT OFFICER Pharyngitis ICD-462 Inactive Shikha Yokum CHIEF INVESTMENT OFFICER 2013 Scabies ICD-133.0 Inactive Shikha Yokum CHIEF INVESTMENT OFFICER 12/29 Folliculitis ICD-704.8 Inactive Shikha Yokum CHIEF INVESTMENT OFFICER Cough ICD-786.2 Inactive Andrei Nichols MD SINUSITIS, ACUTE ICD-461.9 Inactive Jani Marrero MD Medication List Medication Instructions Start Date Stop Date Generic Name NDC Status Provider Patient Instruction ZIAC 2.5-6.25 MG TAB 1 tablet daily for high blood pressure BISOPROLOL-HCTZ [id number] Active Corky Mckeon DO Active MELOXICAM 15 MG TABS 1 daily for knee pain MELOXICAM 41205234846 Active Renetta Ryan APRN Active CYCLOBENZAPRINE HCL 10 MG TABS 1 three times a day as needed for muscle spasm CYCLOBENZAPRINE HCL 31170829768 Active Renetta Ryan APRN Active BUSPIRONE HCL 10 MG ORAL TABS 2 TABS PO BID BUSPIRONE HCL 37462416238 Active Corky Mckeon DO Active AMITRIPTYLINE HCL 75 MG ORAL TABS 1 TAB Q HS AMITRIPTYLINE HCL 12724169458 Active Renetta Ryan APRN Active PROAIR HFA 108 (90 BASE) MCG/ACT AERS 2 puffs four times a day as needed 2015 ALBUTEROL SULFATE 76613334435 No Longer Active Renetta Ryan APRN Active KLONOPIN 1 MG TABS 1 tablet TID CLONAZEPAM 16208314289 No Longer Active Renetta Ryan APRN Active ZITHROMAX 250 MG TAB 2 po today, then 1 po q days 2-5 AZITHROMYCIN 86971653409 No Longer Active Jani Marrero MD Active IBUPROFEN 800 MG TABS 1 tab PO TID IBUPROFEN 20693909419 Active Jani Marrero MD Active WELLBUTRIN SR 100 MG ORAL [id number] 1 TAB PO DAILY BUPROPION HCL 46766596371 Active Jani Marrero MD Active AMITRIPTYLINE HCL 50 MG TAB 1 po q hs for sleep AMITRIPTYLINE HCL 65090612210 No Longer Active Jani Marrero MD Active PROMETHAZINE HCL 25 MG TABS 1 four times a day as needed for vomiting PROMETHAZINE HCL 48622490783 No Longer Active Jani Marrero MD Active AMOXICILLIN 500 MG TABS 2 tabs twice a day for 10 days AMOXICILLIN 76743802893 No Longer Active Jani Marrero MD Active SEROQUEL 200 MG ORAL TABS Take 1 tablet at hs QUETIAPINE FUMARATE 56758735970 No Longer Active Jani Marrero MD Active FETZIMA 40 MG ORAL [id number] LEVOMILNACIPRAN HCL 40695314218 No Longer Active Jani Marrero MD Active PROAIR HFA 108 (90 BASE) MCG/ACT AERS 2 puffs four times a day as needed 2011 ALBUTEROL SULFATE 97468533556 No Longer Active Alondra Denton MD Active IBUPROFEN 600 MG TAB 1 tablet three times a day as needed IBUPROFEN 65547821382 No Longer Active Alondra Denton MD Active LATUDA 20 MG TABS 1 tab at at night with meal LURASIDONE HCL 78474347902 No Longer Active Alondra Denton MD Active CYCLOBENZAPRINE HCL 10 MG TABS 1/2 to 1 tablet every 4 hours CYCLOBENZAPRINE HCL 28165319836 No Longer Active Alondra Denton MD Active CYCLOBENZAPRINE HCL 10 MG TABS 1/2 to 1 tablet by mouth three times daily as needed for muscle spasm/pain CYCLOBENZAPRINE HCL 04974776004 No Longer Active Alondra Denton MD Active SUPRAX 400 MG CAPS Take one tablet twice daily for 7 days CEFIXIME 20845889631 No Longer Active Shikha Yokum CHIEF INVESTMENT OFFICER Active TESSALON PERLES 100 MG CAP 1 tablet by mouth 3 times daily 01/20 BENZONATATE 00789881183 No Longer Active Shikha Yokum CHIEF INVESTMENT OFFICER Active HYDROXYZINE HCL 10 MG TABS 1 to 2 three times a day as needed for itching HYDROXYZINE HCL 91302700615 No Longer Active Shikha Yokum CHIEF INVESTMENT OFFICER Active CYCLOBENZAPRINE HCL 10 MG TABS 1 three times a day as needed for back spasm CYCLOBENZAPRINE HCL 57971736744 No Longer Active Shikha Yokum CHIEF INVESTMENT OFFICER Active SEROQUEL 200 MG TABS 1 tablet at bedtime. QUETIAPINE FUMARATE 29929579960 No Longer Active Shikha Yokum CHIEF INVESTMENT OFFICER Active BACTRIM DS 800-160 MG TAB 1 tab by mouth twice daily TRIMETHOPRIM-SULFAMETHOXAZOLE 74327896775 No Longer Active Shikha Yokjose SORIANO Active STROMECTOL 3 MG TABS 5 tablets by mouth one time on an empty stomach, may repeat in 2 weeks if needed IVERMECTIN 64789804488 No Longer Active Shikha Yokum CHIEF INVESTMENT OFFICER Active PERMETHRIN 5 % CREA apply neck to toes tonight and then rinse off in morning. repeat at 7 days PERMETHRIN 56708150207 No Longer Active Andrei Nichols MD Active MEDROL (NISA) 4 MG TABS 6 tabs on day 1, 5 tabs on day 2, 4 tabs on day 3, 3 tabs on day 4, 2 tabs on day 5, 1 tab on day 6 METHYLPREDNISOLONE 55460995232 No Longer Active Prisca Lockwood MD PhD Active AZITHROMYCIN 250 MG TABS 2 po qd x 1 day, then 1 po qd x 4 days AZITHROMYCIN 63774535341 No Longer Active Prisca Lockwood MD PhD Active CELEXA 20 MG TABS Take 1.5 tablets daily CITALOPRAM HYDROBROMIDE 17574898998 No Longer Active Prisca Lockwood MD PhD Active LOMOTIL 2.5-0.025 MG TAB 1 to 2 four times a day as needed for diarrhea 01/21 DIPHENOXYLATE-ATROPINE 34432544439 No Longer Active Prisca Lockwood MD PhD Active TAMIFLU 75 MG CAPS 1 bid x 5 days OSELTAMIVIR PHOSPHATE 91420172410 No Longer Active Rosalie Boyd APRN Active ZITHROMAX 250 MG TAB 2 po today, then 1 po q days 2-5 AZITHROMYCIN 06923831106 No Longer Active Rosalie Boyd APRN Active STROMECTOL 3 MG TABS 6 pills by mouth x 1; repeat in 10 days 2012 IVERMECTIN 92935250446 No Longer Active Rosalie Boyd APRN Active TYLENOL WITH CODEINE #3 300-30 MG TABS ONE TABLET FOUR TIMES A DAY NEEDED for pain or cough ACETAMINOPHEN-CODEINE 97634656693 No Longer Active Rosalie Boyd APRN Active GUAIFENESIN-CODEINE 100-10 MG/5ML SYRP 1 tsp PO q6h PRN cough GUAIFENESIN-CODEINE 70465846133 No Longer Active Rosalie Boyd APRN Active KEFLEX 500 MG CAP 1 po qid CEPHALEXIN 38583959933 No Longer Active Rosalie Boyd APRN Active GUAIFENESIN-CODEINE 100-10 MG/5ML SYRP 1 tsp PO q6h PRN cough GUAIFENESIN-CODEINE 34592379010 No Longer Active Rosalie Boyd APRN Active PROMETHAZINE HCL 25 MG TABS 1 four times a day as needed for nausea/vomiting PROMETHAZINE HCL 94975929196 No Longer Active Rosalie Boyd APRN Active LAMISIL AT 1 % CREA apply bid to rash TERBINAFINE HCL 62616496675 No Longer Active Andrei Nichols MD Active AMOXICILLIN 400 MG/5ML SUSR 6ml three times a day for 10 days AMOXICILLIN 36814248598 No Longer Active Andrei Nichols MD Active PROMETHAZINE HCL 25 MG TABS take 1 po Q 8 hours prn nausea and vomiting 12/11 PROMETHAZINE HCL 38061356722 No Longer Active Andrei Nichols MD Active BACTROBAN 2 % OINTMENT Apply bid to affected area MUPIROCIN 32167098028 No Longer Active Andrei Nichols MD Active GUAIFENESIN-CODEINE 100-10 MG/5ML SYRP 1 tsp PO q6h PRN cough GUAIFENESIN-CODEINE 58715424450 No Longer Active Andrei Nichols MD Active BACTRIM DS 800-160 MG TABS 1 po BID x 10 days SULFAMETHOXAZOLE-TRIMETHOPRIM 54439319596 No Longer Active Rosalie Boyd APRN Active GUAIFENESIN-CODEINE 100-10 MG/5ML SYRP 1-2 tsp PO q6h PRN cough GUAIFENESIN-CODEINE 07787639459 No Longer Active Giovany URBINA Active PREDNISONE 20 MG TABS 1 tablet by mouth twice daily for 2 days, then 1 daily for 2 days PREDNISONE 17120785702 No Longer Active Giovany URBINA Active HYDROCODONE-ACETAMINOPHEN 5-325 MG TABS 1/2 to 1 po q 4 hours prn pain 11/13 HYDROCODONE-ACETAMINOPHEN 92679072219 No Longer Active Rosalie Boyd APRN Active PENICILLIN V POTASSIUM 500 MG TABS 1 TID PENICILLIN V POTASSIUM 97270317701 No Longer Active Andrei Nichols MD Active SEROQUEL 50 MG TABS 1 tablet at HS QUETIAPINE FUMARATE 02842200295 No Longer Active Andrei Nichols MD Active SEROQUEL 100 MG TABS 1 tablet at HS QUETIAPINE FUMARATE 42456480844 No Longer Active Andrei Nichols MD Active TRIAMCINOLONE ACETONIDE 0.1 % CREA apply three times daily prn rash TRIAMCINOLONE ACETONIDE 22002300457 No Longer Active Andrei Nichols MD Active AMOXICILLIN 500 MG TABS take one tab po tid x 10 days AMOXICILLIN 53787436469 No Longer Active Andrei Nichols MD Active CELEXA 20 MG TABS 1and 1/2 tablets by mouth daily CITALOPRAM HYDROBROMIDE 23730994226 No Longer Active Ary URBINA Active FLEXERIL 10 MG TAB 1/2 to one tablet every 12 hours as needed CYCLOBENZAPRINE HCL 16148879381 No Longer Active Ary URBINA Active CLONAZEPAM 1 MG TABS take at bedtime CLONAZEPAM 26110522645 No Longer Active Ary URBINA Active PERMETHRIN 5 % CREA applyhead to toes tonight and then rinse off in 18 hours. repeat at 7 days if needed. PERMETHRIN 27083343156 No Longer Active Ary URBINA Active AMOXICILLIN 500 MG CAPS 2 po BID x 10 days AMOXICILLIN 63966387659 No Longer Active Andrei Nichols MD Active TYLENOL WITH CODEINE #3 300-30 MG TABS 1 to 2 four times a day as needed for pain ACETAMINOPHEN-CODEINE 93623422584 No Longer Active Reta Hampton Active PREDNISONE 20 MG TAB 2 tabs daily for 5 days, then 1 daily for 5 days PREDNISONE 49254242978 No Longer Active Retarylee AcostaMemo Active LOMOTIL 2.5-0.025 MG TAB 1 to 2 four times a day as needed for diarrhea 05/28 DIPHENOXYLATE-ATROPINE 96710560330 No Longer Active Reta Hampton Active ALPRAZOLAM 1 MG TABS 1 tab tid ALPRAZOLAM 09163617747 No Longer Active Reta Hampton Active AMOXICILLIN 500 MG CAPS 2 po BID x 10 days AMOXICILLIN 97798853735 No Longer Active Andrei Nichols MD Active AMOXICILLIN 500 MG TABS Take one tab by mouth 3 times daily, morning, afternoon and evening for 7 days. AMOXICILLIN 53586102076 No Longer Active Virginia Alejandra RN Active VICODIN 5-300 MG TABS one tab PO Q 6 hours PRN pain HYDROCODONE-ACETAMINOPHEN 16170091755 No Longer Active Virginia Alejandra RN Active FLAGYL 500 MG TABS four tabs PO one time METRONIDAZOLE 41440874598 No Longer Active Alondra Denton MD Active MELOXICAM 15 MG TABS 1 po q day for pain with food MELOXICAM 23036170774 No Longer Active Alondra Denton MD Active AMOXICILLIN 400 MG/5ML SUSR 5ml po TID x 10 days AMOXICILLIN 93661212855 No Longer Active Jani Marrero MD Active NIX CREME RINSE 1 % LIQD apply as directed tonight, repeat at 7 days PERMETHRIN 24808453568 No Longer Active Corky Mckeon DO Active QVAR 40 MCG/ACT AERS one puff three times a day as needed BECLOMETHASONE DIPROPIONATE 49305366194 No Longer Active Andrei Nichols MD Active METHOCARBAMOL 500 MG TABS 1 to 2 qid prn back spasm METHOCARBAMOL 37813228871 No Longer Active Andrei Nichols MD Active VISTARIL 25 MG CAPS 1-2 tablets three times a day as needed HYDROXYZINE PAMOATE 89775504095 No Longer Active Andrei Nichols MD Active SEROQUEL 100 MG TABS 1/2 TABLET at hs QUETIAPINE FUMARATE 18494983082 No Longer Active Aicha Rizzo RN Active BACTRIM DS 800-160 MG TAB 1 tab by mouth twice daily TRIMETHOPRIM-SULFAMETHOXAZOLE 41668175048 No Longer Active Prisca Lockwood MD PhD Active CYCLOBENZAPRINE HCL 10 MG TABS TAKE 1/2 - 1 TAB EVERY 12 HOURS NEEDED 2010 CYCLOBENZAPRINE HCL 62860436224 No Longer Active Andrei Nichols MD Active CYCLOBENZAPRINE HCL 10 MG TABS TAKE 1/2 - 1 TAB EVERY 12 HOURS NEEDED 2010 CYCLOBENZAPRINE HCL 10 MG TABS 220758 CYCLOBENZAPRINE HCL Inactive SEROQUEL 100 MG TABS 1/2 TABLET at hs SEROQUEL 100 MG TABS 597049 QUETIAPINE FUMARATE Inactive VISTARIL 25 MG CAPS 1-2 tablets three times a day as needed VISTARIL 25 MG CAPS 022984 HYDROXYZINE PAMOATE Inactive METHOCARBAMOL 500 MG TABS 1 to 2 qid prn back spasm METHOCARBAMOL 500 MG TABS 248129 METHOCARBAMOL Inactive QVAR 40 MCG/ACT AERS one puff three times a day as needed QVAR 40 MCG/ACT AERS BECLOMETHASONE DIPROPIONATE Inactive NIX CREME RINSE 1 % LIQD apply as directed tonight, repeat at 7 days NIX CREME RINSE 1 % LIQD PERMETHRIN Inactive MELOXICAM 15 MG TABS 1 po q day for pain with food MELOXICAM 15 MG TABS 723083 MELOXICAM Inactive ALPRAZOLAM 1 MG TABS 1 tab tid ALPRAZOLAM 1 MG TABS 285388 ALPRAZOLAM Inactive LOMOTIL 2.5-0.025 MG TAB 1 to 2 four times a day as needed for diarrhea 05/28 LOMOTIL 2.5-0.025 MG TAB 5239337 DIPHENOXYLATE-ATROPINE Inactive PREDNISONE 20 MG TAB 2 tabs daily for 5 days, then 1 daily for 5 days PREDNISONE 20 MG TAB 236168 PREDNISONE Inactive TYLENOL WITH CODEINE #3 300-30 MG TABS 1 to 2 four times a day as needed for pain TYLENOL WITH CODEINE #3 300-30 MG TABS ACETAMINOPHEN-CODEINE Inactive PERMETHRIN 5 % CREA applyhead to toes tonight and then rinse off in 18 hours. repeat at 7 days if needed. PERMETHRIN 5 % CREA 538651 PERMETHRIN Inactive CLONAZEPAM 1 MG TABS take at bedtime CLONAZEPAM 1 MG TABS 296927 CLONAZEPAM Inactive FLEXERIL 10 MG TAB 1/2 to one tablet every 12 hours as needed FLEXERIL 10 MG TAB CYCLOBENZAPRINE HCL Inactive CELEXA 20 MG TABS 1and 1/2 tablets by mouth daily CELEXA 20 MG TABS 737397 CITALOPRAM HYDROBROMIDE Inactive AMOXICILLIN 500 MG TABS take one tab po tid x 10 days AMOXICILLIN 500 MG TABS 303070 AMOXICILLIN Inactive TRIAMCINOLONE ACETONIDE 0.1 % CREA apply three times daily prn rash TRIAMCINOLONE ACETONIDE 0.1 % CREA 5906703 TRIAMCINOLONE ACETONIDE Inactive SEROQUEL 100 MG TABS 1 tablet at HS SEROQUEL 100 MG TABS 905432 QUETIAPINE FUMARATE Inactive SEROQUEL 50 MG TABS 1 tablet at HS SEROQUEL 50 MG TABS 719581 QUETIAPINE FUMARATE Inactive HYDROCODONE-ACETAMINOPHEN 5-325 MG TABS 1/2 to 1 po q 4 hours prn pain 11/13 HYDROCODONE-ACETAMINOPHEN 5-325 MG TABS 349074 HYDROCODONE- ACETAMINOPHEN Inactive PREDNISONE 20 MG TABS 1 tablet by mouth twice daily for 2 days, then 1 daily for 2 days PREDNISONE 20 MG TABS 726986 PREDNISONE Inactive GUAIFENESIN-CODEINE 100-10 MG/5ML SYRP 1-2 tsp PO q6h PRN cough GUAIFENESIN-CODEINE 100-10 MG/5ML SYRP 649381 GUAIFENESIN-CODEINE Inactive GUAIFENESIN-CODEINE 100-10 MG/5ML SYRP 1 tsp PO q6h PRN cough GUAIFENESIN-CODEINE 100-10 MG/5ML SYRP 198617 GUAIFENESIN-CODEINE Inactive BACTROBAN 2 % OINTMENT Apply bid to affected area BACTROBAN 2 % OINTMENT 330825 MUPIROCIN Inactive PROMETHAZINE HCL 25 MG TABS take 1 po Q 8 hours prn nausea and vomiting 12/11 PROMETHAZINE HCL 25 MG TABS 843103 PROMETHAZINE HCL Inactive AMOXICILLIN 400 MG/5ML SUSR 6ml three times a day for 10 days AMOXICILLIN 400 MG/5ML SUSR 328786 AMOXICILLIN Inactive LAMISIL AT 1 % CREA apply bid to rash LAMISIL AT 1 % CREA 570202 TERBINAFINE HCL Inactive PROMETHAZINE HCL 25 MG TABS 1 four times a day as needed for nausea/vomiting PROMETHAZINE HCL 25 MG TABS 124177 PROMETHAZINE HCL Inactive GUAIFENESIN-CODEINE 100-10 MG/5ML SYRP 1 tsp PO q6h PRN cough GUAIFENESIN-CODEINE 100-10 MG/5ML SYRP 346912 GUAIFENESIN-CODEINE Inactive KEFLEX 500 MG CAP 1 po qid KEFLEX 500 MG CAP 912778 CEPHALEXIN Inactive GUAIFENESIN-CODEINE 100-10 MG/5ML SYRP 1 tsp PO q6h PRN cough GUAIFENESIN-CODEINE 100-10 MG/5ML SYRP 273046 GUAIFENESIN-CODEINE Inactive TYLENOL WITH CODEINE #3 300-30 MG TABS ONE TABLET FOUR TIMES A DAY NEEDED for pain or cough TYLENOL WITH CODEINE #3 300-30 MG TABS ACETAMINOPHEN-CODEINE Inactive STROMECTOL 3 MG TABS 6 pills by mouth x 1; repeat in 10 days 2012 STROMECTOL 3 MG TABS 475621 IVERMECTIN Inactive LOMOTIL 2.5-0.025 MG TAB 1 to 2 four times a day as needed for diarrhea 01/21 LOMOTIL 2.5-0.025 MG TAB 6138684 DIPHENOXYLATE-ATROPINE Inactive CELEXA 20 MG TABS Take 1.5 tablets daily CELEXA 20 MG TABS 686470 CITALOPRAM HYDROBROMIDE Inactive PERMETHRIN 5 % CREA apply neck to toes tonight and then rinse off in morning. repeat at 7 days PERMETHRIN 5 % CREA 478735 PERMETHRIN Inactive STROMECTOL 3 MG TABS 5 tablets by mouth one time on an empty stomach, may repeat in 2 weeks if needed STROMECTOL 3 MG TABS 645106 IVERMECTIN Inactive BACTRIM DS 800-160 MG TAB 1 tab by mouth twice daily BACTRIM DS 800-160 MG TAB 565381 TRIMETHOPRIM-SULFAMETHOXAZOLE Inactive SEROQUEL 200 MG TABS 1 tablet at bedtime. SEROQUEL 200 MG TABS 428963 QUETIAPINE FUMARATE Inactive CYCLOBENZAPRINE HCL 10 MG TABS 1 three times a day as needed for back spasm CYCLOBENZAPRINE HCL 10 MG TABS 597623 CYCLOBENZAPRINE HCL Inactive HYDROXYZINE HCL 10 MG TABS 1 to 2 three times a day as needed for itching HYDROXYZINE HCL 10 MG TABS 772675 HYDROXYZINE HCL Inactive TESSALON PERLES 100 MG CAP 1 tablet by mouth 3 times daily 01/20 TESSALON PERLES 100 MG CAP 540023 BENZONATATE Inactive CYCLOBENZAPRINE HCL 10 MG TABS 1/2 to 1 tablet by mouth three times daily as needed for muscle spasm/pain CYCLOBENZAPRINE HCL 10 MG TABS 884765 CYCLOBENZAPRINE HCL Inactive CYCLOBENZAPRINE HCL 10 MG TABS 1/2 to 1 tablet every 4 hours CYCLOBENZAPRINE HCL 10 MG TABS 062335 CYCLOBENZAPRINE HCL Inactive LATUDA 20 MG TABS 1 tab at at night with meal LATUDA 20 MG TABS LURASIDONE HCL Inactive IBUPROFEN 600 MG TAB 1 tablet three times a day as needed IBUPROFEN 600 MG TAB 716539 IBUPROFEN Inactive PROAIR HFA 108 (90 BASE) MCG/ACT AERS 2 puffs four times a day as needed 2011 PROAIR HFA 108 (90 BASE) MCG/ACT AERS ALBUTEROL SULFATE Inactive FETZIMA 40 MG ORAL [id number] FETZIMA 40 MG ORAL [id number] LEVOMILNACIPRAN HCL Inactive SEROQUEL 200 MG ORAL TABS Take 1 tablet at hs SEROQUEL 200 MG ORAL TABS 561200 QUETIAPINE FUMARATE Inactive AMOXICILLIN 500 MG TABS 2 tabs twice a day for 10 days AMOXICILLIN 500 MG TABS 002472 AMOXICILLIN Inactive PROMETHAZINE HCL 25 MG TABS 1 four times a day as needed for vomiting PROMETHAZINE HCL 25 MG TABS 589527 PROMETHAZINE HCL Inactive KLONOPIN 1 MG TABS 1 tablet TID KLONOPIN 1 MG TABS 467157 CLONAZEPAM Inactive PROAIR HFA 108 (90 BASE) MCG/ACT AERS 2 puffs four times a day as needed 2015 PROAIR HFA 108 (90 BASE) MCG/ACT AERS ALBUTEROL SULFATE Inactive BACTRIM DS 800-160 MG TAB 1 tab by mouth twice daily BACTRIM DS 800-160 MG TAB 142858 TRIMETHOPRIM-SULFAMETHOXAZOLE Inactive AMOXICILLIN 400 MG/5ML SUSR 5ml po TID x 10 days AMOXICILLIN 400 MG/5ML SUSR 135179 AMOXICILLIN Inactive FLAGYL 500 MG TABS four tabs PO one time FLAGYL 500 MG TABS 266668 METRONIDAZOLE Inactive AMOXICILLIN 500 MG TABS Take one tab by mouth 3 times daily, morning, afternoon and evening for 7 days. AMOXICILLIN 500 MG TABS 069782 AMOXICILLIN Inactive AMOXICILLIN 500 MG CAPS 2 po BID x 10 days AMOXICILLIN 500 MG CAPS 293587 AMOXICILLIN Inactive AMOXICILLIN 500 MG CAPS 2 po BID x 10 days AMOXICILLIN 500 MG CAPS 852553 AMOXICILLIN Inactive PENICILLIN V POTASSIUM 500 MG TABS 1 TID PENICILLIN V POTASSIUM 500 MG TABS 433552 PENICILLIN V POTASSIUM Inactive BACTRIM DS 800-160 MG TABS 1 po BID x 10 days BACTRIM DS 800-160 MG TABS 622649 SULFAMETHOXAZOLE-TRIMETHOPRIM Inactive ZITHROMAX 250 MG TAB 2 po today, then 1 po q days 2-5 ZITHROMAX 250 MG TAB 0219988 AZITHROMYCIN Inactive TAMIFLU 75 MG CAPS 1 bid x 5 days TAMIFLU 75 MG CAPS 344834 OSELTAMIVIR PHOSPHATE Inactive AZITHROMYCIN 250 MG TABS 2 po qd x 1 day, then 1 po qd x 4 days AZITHROMYCIN 250 MG TABS 4671259 AZITHROMYCIN Inactive MEDROL (NISA) 4 MG TABS 6 tabs on day 1, 5 tabs on day 2, 4 tabs on day 3, 3 tabs on day 4, 2 tabs on day 5, 1 tab on day 6 MEDROL ( NISA) 4 MG TABS 922737 METHYLPREDNISOLONE Inactive SUPRAX 400 MG CAPS Take one tablet twice daily for 7 days SUPRAX 400 MG CAPS CEFIXIME Inactive AMITRIPTYLINE HCL 50 MG TAB 1 po q hs for sleep AMITRIPTYLINE HCL 50 MG TAB 577200 AMITRIPTYLINE HCL Inactive ZITHROMAX 250 MG TAB 2 po today, then 1 po q days 2-5 ZITHROMAX 250 MG TAB 9415017 AZITHROMYCIN Inactive Immunizations Vaccine Administration Date Value Standard Description Seasonal influenza vaccine, injectable, containing preservative, for > 3 years old (Afluria, FluLaval, Fluzone, Fluvirin, Fluarix, Agriflu(>=18 yo)) Fluzone (>3 yrs.) [[id number]] Influenza, seasonal, injectable pneumococcal immunization administered Pneumovax 23 [CVX33] pneumococcal polysaccharide vaccine, 23 valent Seasonal influenza vaccine, injectable, containing preservative, for > 3 years old (Afluria, FluLaval, Fluzone, Fluvirin, Fluarix, Agriflu(>=18 yo)) Fluzone (>3 yrs.) [[id number]] Influenza, seasonal, injectable Seasonal influenza vaccine, injectable, containing preservative, for > 3 years old (Afluria, FluLaval, Fluzone, Fluvirin, Fluarix, Agriflu(>=18 yo)) Fluzone (>3 yrs.) [FQD175] Influenza, seasonal, injectable hepatitis B vaccine #1 [...] Measured Encounters Code Encounter Date Provider Facility CPT-83518 Level 4 Est. Patient 14:18:58 CDT Corky Juliann Mckeon DO [facility] CPT-85082 Level 3 Est. Patient 16:47:47 CDT Renetta Ryan [facility]-61974 Level 3 Est. Patient 11:04:11 ELEMENTARY ELL TEACHER Jani Marrero MD [facility]-34787 Level 3 Est. Patient 12:02:27 ELEMENTARY ELL TEACHER Andrei Nichols MD [facility]-69422 Level 3 Est. Patient 12:47:17 ELEMENTARY ELL TEACHER Andrei Nichols MD [facility] CPT-15964 Level 3 Est. Patient 14:51:20 ELEMENTARY ELL TEACHER Shikha Randolph [facility] CPT-38890 Level 3 Est. Patient 10:42:38 CDT Shikha Randolph [facility] CPT-25218 Level 3 Est. Patient 18:20:39 CDT Prisca Lockwood MD [facility] CPT-95789 Level 3 Est. Patient 16:42:47 ELEMENTARY ELL TEACHER Rosalie Boyd [facility] CPT-87559 Level 3 Est. Patient 14:34:36 ELEMENTARY ELL TEACHER Rosalie Boyd [facility] CPT-83202 Level 4 Est. Patient 10:23:07 ELEMENTARY ELL TEACHER Andrei Nichols MD [facility] CPT-15249 Level 3 Est. Patient 16:47:31 ELEMENTARY ELL TEACHER Andrei Nichols MD [facility] CPT-92200 Level 3 Est. Patient 11:59:14 CDT Rosalie Boyd [facility] CPT-22931 Level 3 Est. Patient 15:30:34 CDT Giovany URBINA [facility] CPT-08109 Level 3 Est. Patient 11:03:03 CDT Rosalie Boyd OB [facility] CPT-00482 Level 3 Est. Patient 11:08:07 CDT Rosalie Boyd [facility] CPT-12799 Level 3 Est. Patient 14:07:32 CDT Andrei Nichols MD [facility] CPT-81651 Level 3 Est. Patient 17:08:28 CDT Andrei Nichols MD [facility] CPT-10206 Level 3 Est. Patient 13:10:13 CDT Jani Marrero MD [facility] CPT-75661 Level 3 Est. Patient 11:27:12 CDT Jani Marrero MD [facility] CPT-49839 Level 3 Est. Patient 13:44:42 CDT Andrei Nichols MD [facility] CPT-40543 Level 3 Est. Patient 12:34:57 ELEMENTARY ELL TEACHER Andrei Nichols MD [facility] CPT-98894 Level 3 Est. Patient 15:30:06 CDT Jani Marrero MD [facility] CPT-12048 Level 3 Est. Patient 21:59:00 CDT Corky Mckeon DO [facility] CPT-57889 Level 3 Est. Patient 17:12:49 CDT Andrei Nichols MD [facility] CPT-51055 Level 4 Est. Patient 12:27:45 ELEMENTARY ELL TEACHER Andrei Nichols MD [facility] CPT-42605 Level 3 Est. 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
--- OUTSIDE RECORDS SUMMARY | 2017-01-02 18:20 | XMS REPORT | Clinical Summary ---
Author Author Admin, E Organization [facility] Address Unknown Phone Unavailable Allergies, [...] teeth and supporting structures PHARYNGITIS-ACUTE 462 Inactive Roslaie Boyd APRN Acute pharyngitis DIARRHEA 787.91 Resolved [...] Sinusitis, frontal, acute 461.1 Resolved Shikha Yokum STAND UP FORKLIFT OPERATOR Acute frontal sinusitis Pharyngitis 462 Resolved Shikha Yokum STAND UP FORKLIFT OPERATOR Acute pharyngitis Scabies 133.0 Resolved Shikha Yokum STAND UP FORKLIFT OPERATOR Scabies Folliculitis 704.8 Resolved Shikha Yokum STAND UP FORKLIFT OPERATOR Other specified diseases of hair and [...] Pool PA ECZEMA ICD-692.9 Inactive Shikha Randolph STAND UP FORKLIFT OPERATOR OTITIS MEDIA ICD-382.9 Inactive Ary URBINA 09/16 PHARYNGITIS ICD-462 Inactive Andrei Nichols MD UNSPECIFIED DISORDER TEETH&SUPPORTING STRUCTURES ICD-525.9 12/29 Inactive Shikha Randolph STAND UP FORKLIFT OPERATOR PHARYNGITIS-ACUTE ICD-462 Inactive Rosalie Boyd STAND UP FORKLIFT OPERATOR DIARRHEA ICD-787.91 Inactive Andrei Nichols MD SHOULDER PAIN ICD-719.41 Inactive Shikha Randolph STAND UP FORKLIFT OPERATOR NAUSEA AND VOMITING ICD-787.01 Inactive Andrei [...] PhD Dental caries ICD-521.00 Inactive Shikha Randolph STAND UP FORKLIFT OPERATOR Tooth pain ICD-525.9 Inactive Prisca Lockwood MD PhD Head lice ICD-132.0 Inactive Prisca Lockwood MD PhD Upper respiratory infection ICD-465.9 Inactive Prisca Lockwood MD PhD Sinusitis, frontal, acute ICD-461.1 Inactive Shikha Randolph STAND UP FORKLIFT OPERATOR Pharyngitis ICD-462 Inactive Shikha Yokum STAND UP FORKLIFT OPERATOR 2013 Scabies ICD-133.0 Inactive Shikha Lockeum STAND UP FORKLIFT OPERATOR 12/29 Folliculitis ICD-704.8 Inactive Shikha Randolph STAND UP FORKLIFT OPERATOR Cough ICD-786.2 Inactive Andrei Nichols MD Medication List Medication Instructions Start Date Stop Date Generic Name NDC Status Provider Patient Instruction ZITHROMAX 250 MG TAB 2 po today, then 1 po q days 2-5 AZITHROMYCIN 44067078254 Active Jani Marrero MD Active IBUPROFEN 800 MG TABS 1 tab PO TID IBUPROFEN 87532489076 Active Jani Marrero MD Active WELLBUTRIN SR 100 MG ORAL [id number] 1 TAB PO DAILY BUPROPION HCL 78696664843 Active Jani Marrero MD Active AMITRIPTYLINE HCL 50 MG TAB 1 po q hs for sleep AMITRIPTYLINE HCL 24351377565 Active Jani Marrero MD Active PROMETHAZINE HCL 25 MG TABS 1 four times a day as needed for vomiting PROMETHAZINE HCL 41777470143 No Longer Active Jani Marrero MD Active AMOXICILLIN 500 MG TABS 2 tabs twice a day for 10 days AMOXICILLIN 97987260454 No Longer Active Jani Marrero MD Active SEROQUEL 200 MG ORAL TABS Take 1 tablet at hs QUETIAPINE FUMARATE 50432280820 No Longer Active Jani Marrero MD Active FETZIMA 40 MG ORAL [id number] LEVOMILNACIPRAN HCL 54140341366 No Longer Active Jani Marrero MD Active PROAIR HFA 108 (90 BASE) MCG/ACT AERS 2 puffs four times a day as needed 2015 ALBUTEROL SULFATE 82736411534 Active Andrei Nichols MD Active KLONOPIN 1 MG TABS 1 tablet TID CLONAZEPAM 24218956861 Active Andrei Nichols MD Active PROAIR HFA 108 (90 BASE) MCG/ACT AERS 2 puffs four times a day as needed 2011 ALBUTEROL SULFATE 99272646406 No Longer Active Alondra Denton MD Active IBUPROFEN 600 MG TAB 1 tablet three times a day as needed IBUPROFEN 46078080238 No Longer Active Alondra Denton MD Active LATUDA 20 MG TABS 1 tab at at night with meal LURASIDONE HCL 86375653700 No Longer Active Alondra Denton MD Active CYCLOBENZAPRINE HCL 10 MG TABS 1/2 to 1 tablet every 4 hours CYCLOBENZAPRINE HCL 56652599771 No Longer Active Alondra Denton MD Active CYCLOBENZAPRINE HCL 10 MG TABS 1/2 to 1 tablet by mouth three times daily as needed for muscle spasm/pain CYCLOBENZAPRINE HCL 24161076205 No Longer Active Alondra Denton MD Active SUPRAX 400 MG CAPS Take one tablet twice daily for 7 days CEFIXIME 44200576757 No Longer Active Shikha Yokum STAND UP FORKLIFT OPERATOR Active TESSALON PERLES 100 MG CAP 1 tablet by mouth 3 times daily 01/20 BENZONATATE 89336600346 No Longer Active Shikha Yokum STAND UP FORKLIFT OPERATOR Active HYDROXYZINE HCL 10 MG TABS 1 to 2 three times a day as needed for itching HYDROXYZINE HCL 43384938839 No Longer Active Shikha Yokum STAND UP FORKLIFT OPERATOR Active CYCLOBENZAPRINE HCL 10 MG TABS 1 three times a day as needed for back spasm CYCLOBENZAPRINE HCL 33310678414 No Longer Active Shikha Yokum STAND UP FORKLIFT OPERATOR Active SEROQUEL 200 MG TABS 1 tablet at bedtime. QUETIAPINE FUMARATE 18112575590 No Longer Active Shikha Yokum STAND UP FORKLIFT OPERATOR Active BACTRIM DS 800-160 MG TAB 1 tab by mouth twice daily TRIMETHOPRIM-SULFAMETHOXAZOLE 44675217968 No Longer Active Shikha Yokum STAND UP FORKLIFT OPERATOR Active STROMECTOL 3 MG TABS 5 tablets by mouth one time on an empty stomach, may repeat in 2 weeks if needed IVERMECTIN 93484327449 No Longer Active Shikha Yokum STAND UP FORKLIFT OPERATOR Active PERMETHRIN 5 % CREA apply neck to toes tonight and then rinse off in morning. repeat at 7 days PERMETHRIN 84335158930 No Longer Active Andrei Nichols MD Active MEDROL (NISA) 4 MG TABS 6 tabs on day 1, 5 tabs on day 2, 4 tabs on day 3, 3 tabs on day 4, 2 tabs on day 5, 1 tab on day 6 METHYLPREDNISOLONE 59660729409 No Longer Active Prisca Lockwood MD PhD Active AZITHROMYCIN 250 MG TABS 2 po qd x 1 day, then 1 po qd x 4 days AZITHROMYCIN 65550688296 No Longer Active Prisca Lockwood MD PhD Active CELEXA 20 MG TABS Take 1.5 tablets daily CITALOPRAM HYDROBROMIDE 01792365059 No Longer Active Prisca Lockwood MD PhD Active LOMOTIL 2.5-0.025 MG TAB 1 to 2 four times a day as needed for diarrhea 01/21 DIPHENOXYLATE-ATROPINE 10501328410 No Longer Active Prisca Lockwood MD PhD Active TAMIFLU 75 MG CAPS 1 bid x 5 days OSELTAMIVIR PHOSPHATE 70789467905 No Longer Active Rosalie Boyd APRN Active ZITHROMAX 250 MG TAB 2 po today, then 1 po q days 2-5 AZITHROMYCIN 35737071978 No Longer Active Rosalie Boyd APRN Active STROMECTOL 3 MG TABS 6 pills by mouth x 1; repeat in 10 days 2012 IVERMECTIN 59288270872 No Longer Active Rosalie Boyd APRN Active TYLENOL WITH CODEINE #3 300-30 MG TABS ONE TABLET FOUR TIMES A DAY NEEDED for pain or cough ACETAMINOPHEN-CODEINE 62624123450 No Longer Active Rosalie Boyd APRN Active GUAIFENESIN-CODEINE 100-10 MG/5ML SYRP 1 tsp PO q6h PRN cough GUAIFENESIN-CODEINE 08569616435 No Longer Active Rosalie Boyd APRN Active KEFLEX 500 MG CAP 1 po qid CEPHALEXIN 87807755897 No Longer Active Rosalie Boyd APRN Active GUAIFENESIN-CODEINE 100-10 MG/5ML SYRP 1 tsp PO q6h PRN cough GUAIFENESIN-CODEINE 90889806339 No Longer Active Rosalie Boyd APRN Active PROMETHAZINE HCL 25 MG TABS 1 four times a day as needed for nausea/vomiting PROMETHAZINE HCL 22835642390 No Longer Active Rosalie Boyd APRN Active LAMISIL AT 1 % CREA apply bid to rash TERBINAFINE HCL 03123418701 No Longer Active Andrei Nichols MD Active AMOXICILLIN 400 MG/5ML SUSR 6ml three times a day for 10 days AMOXICILLIN 31066371495 No Longer Active Andrei Nichols MD Active PROMETHAZINE HCL 25 MG TABS take 1 po Q 8 hours prn nausea and vomiting 12/11 PROMETHAZINE HCL 37106920965 No Longer Active Andrei Nichols MD Active BACTROBAN 2 % OINTMENT Apply bid to affected area MUPIROCIN 52971264814 No Longer Active Andrei Nichols MD Active GUAIFENESIN-CODEINE 100-10 MG/5ML SYRP 1 tsp PO q6h PRN cough GUAIFENESIN-CODEINE 90369829686 No Longer Active Andrei Nichols MD Active BACTRIM DS 800-160 MG TABS 1 po BID x 10 days SULFAMETHOXAZOLE-TRIMETHOPRIM 49924867884 No Longer Active Rosalie Boyd APRN Active GUAIFENESIN-CODEINE 100-10 MG/5ML SYRP 1-2 tsp PO q6h PRN cough GUAIFENESIN-CODEINE 61967782763 No Longer Active Giovany URBINA Active PREDNISONE 20 MG TABS 1 tablet by mouth twice daily for 2 days, then 1 daily for 2 days PREDNISONE 54164735427 No Longer Active Giovany URBINA Active HYDROCODONE-ACETAMINOPHEN 5-325 MG TABS 1/2 to 1 po q 4 hours prn pain 11/13 HYDROCODONE-ACETAMINOPHEN 28594205065 No Longer Active Rosalie Boyd APRN Active PENICILLIN V POTASSIUM 500 MG TABS 1 TID PENICILLIN V POTASSIUM 36762131945 No Longer Active Andrei Nichols MD Active SEROQUEL 50 MG TABS 1 tablet at HS QUETIAPINE FUMARATE 36059742880 No Longer Active Andrei Nichols MD Active SEROQUEL 100 MG TABS 1 tablet at HS QUETIAPINE FUMARATE 51018131453 No Longer Active Andrei Nichols MD Active TRIAMCINOLONE ACETONIDE 0.1 % CREA apply three times daily prn rash TRIAMCINOLONE ACETONIDE 99894842997 No Longer Active Andrei Nichols MD Active AMOXICILLIN 500 MG TABS take one tab po tid x 10 days AMOXICILLIN 14603274020 No Longer Active Andrei Nichols MD Active CELEXA 20 MG TABS 1and 1/2 tablets by mouth daily CITALOPRAM HYDROBROMIDE 76116288739 No Longer Active Ary Pool PA Active FLEXERIL 10 MG TAB 1/2 to one tablet every 12 hours as needed CYCLOBENZAPRINE HCL 96324666750 No Longer Active Ary Pool PA Active CLONAZEPAM 1 MG TABS take at bedtime CLONAZEPAM 13080713066 No Longer Active Ary Pool PA Active PERMETHRIN 5 % CREA applyhead to toes tonight and then rinse off in 18 hours. repeat at 7 days if needed. PERMETHRIN 56409637385 No Longer Active Ary Pool PA Active AMOXICILLIN 500 MG CAPS 2 po BID x 10 days AMOXICILLIN 95240266618 No Longer Active Andrei Nichols MD Active TYLENOL WITH CODEINE #3 300-30 MG TABS 1 to 2 four times a day as needed for pain ACETAMINOPHEN-CODEINE 46234845114 No Longer Active Reta Memo Active PREDNISONE 20 MG TAB 2 tabs daily for 5 days, then 1 daily for 5 days PREDNISONE 12942542121 No Longer Active Reta Memo Active LOMOTIL 2.5-0.025 MG TAB 1 to 2 four times a day as needed for diarrhea 05/28 DIPHENOXYLATE-ATROPINE 36060926914 No Longer Active Reta Memo Active ALPRAZOLAM 1 MG TABS 1 tab tid ALPRAZOLAM 51019643804 No Longer Active Reta Memo Active AMOXICILLIN 500 MG CAPS 2 po BID x 10 days AMOXICILLIN 15947191251 No Longer Active Andrei Nichols MD Active AMOXICILLIN 500 MG TABS Take one tab by mouth 3 times daily, morning, afternoon and evening for 7 days. AMOXICILLIN 56638300586 No Longer Active Virginia Alejandra RN Active VICODIN 5-300 MG TABS one tab PO Q 6 hours PRN pain HYDROCODONE-ACETAMINOPHEN 23727343253 No Longer Active Virginia Alejandra RN Active FLAGYL 500 MG TABS four tabs PO one time METRONIDAZOLE 25928759693 No Longer Active Alondra Denton MD Active MELOXICAM 15 MG TABS 1 po q day for pain with food MELOXICAM 44766074582 No Longer Active Alondra Denton MD Active AMOXICILLIN 400 MG/5ML SUSR 5ml po TID x 10 days AMOXICILLIN 68263608238 No Longer Active Jani Marrero MD Active NIX CREME RINSE 1 % LIQD apply as directed carlotta, repeat at 7 days PERMETHRIN 63469232265 No Longer Active Corky Mckeon DO Active QVAR 40 MCG/ACT AERS one puff three times a day as needed BECLOMETHASONE DIPROPIONATE 93753253775 No Longer Active Andrei Nichols MD Active METHOCARBAMOL 500 MG TABS 1 to 2 qid prn back spasm METHOCARBAMOL 69294696152 No Longer Active Andrei Nichols MD Active VISTARIL 25 MG CAPS 1-2 tablets three times a day as needed HYDROXYZINE PAMOATE 86063147415 No Longer Active Andrei Nichols MD Active SEROQUEL 100 MG TABS 1/2 TABLET at hs QUETIAPINE FUMARATE 60865581839 No Longer Active Aicha Rizzo RN Active BACTRIM DS 800-160 MG TAB 1 tab by mouth twice daily TRIMETHOPRIM-SULFAMETHOXAZOLE 86624104528 No Longer Active Prisca Lockwood MD PhD Active CYCLOBENZAPRINE HCL 10 MG TABS TAKE 1/2 - 1 TAB EVERY 12 HOURS NEEDED 2010 CYCLOBENZAPRINE HCL 49696430901 No Longer Active Andrei Nichols MD Active CYCLOBENZAPRINE HCL 10 MG TABS TAKE 1/2 - 1 TAB EVERY 12 HOURS NEEDED 2010 CYCLOBENZAPRINE HCL 10 MG TABS 123515 CYCLOBENZAPRINE HCL Inactive SEROQUEL 100 MG TABS 1/2 TABLET at hs SEROQUEL 100 MG TABS 812207 QUETIAPINE FUMARATE Inactive VISTARIL 25 MG CAPS 1-2 tablets three times a day as needed VISTARIL 25 MG CAPS 070327 HYDROXYZINE PAMOATE Inactive METHOCARBAMOL 500 MG TABS 1 to 2 qid prn back spasm METHOCARBAMOL 500 MG TABS 358281 METHOCARBAMOL Inactive QVAR 40 MCG/ACT AERS one puff three times a day as needed QVAR 40 MCG/ACT AERS BECLOMETHASONE DIPROPIONATE Inactive NIX CREME RINSE 1 % LIQD apply as directed tonight, repeat at 7 days NIX CREME RINSE 1 % LIQD PERMETHRIN Inactive MELOXICAM 15 MG TABS 1 po q day for pain with food MELOXICAM 15 MG TABS 618294 MELOXICAM Inactive ALPRAZOLAM 1 MG TABS 1 tab tid ALPRAZOLAM 1 MG TABS 501759 ALPRAZOLAM Inactive LOMOTIL 2.5-0.025 MG TAB 1 to 2 four times a day as needed for diarrhea 05/28 LOMOTIL 2.5-0.025 MG TAB 7473436 DIPHENOXYLATE-ATROPINE Inactive PREDNISONE 20 MG TAB 2 tabs daily for 5 days, then 1 daily for 5 days PREDNISONE 20 MG TAB 760634 PREDNISONE Inactive TYLENOL WITH CODEINE #3 300-30 MG TABS 1 to 2 four times a day as needed for pain TYLENOL WITH CODEINE #3 300-30 MG TABS 935808 ACETAMINOPHEN-CODEINE Inactive PERMETHRIN 5 % CREA applyhead to toes tonight and then rinse off in 18 hours. repeat at 7 days if needed. PERMETHRIN 5 % CREA 769989 PERMETHRIN Inactive CLONAZEPAM 1 MG TABS take at bedtime CLONAZEPAM 1 MG TABS 586141 CLONAZEPAM Inactive FLEXERIL 10 MG TAB 1/2 to one tablet every 12 hours as needed FLEXERIL 10 MG TAB CYCLOBENZAPRINE HCL Inactive CELEXA 20 MG TABS 1and 1/2 tablets by mouth daily CELEXA 20 MG TABS 420783 CITALOPRAM HYDROBROMIDE Inactive AMOXICILLIN 500 MG TABS take one tab po tid x 10 days AMOXICILLIN 500 MG TABS 708297 AMOXICILLIN Inactive TRIAMCINOLONE ACETONIDE 0.1 % CREA apply three times daily prn rash TRIAMCINOLONE ACETONIDE 0.1 % CREA 9652807 TRIAMCINOLONE ACETONIDE Inactive SEROQUEL 100 MG TABS 1 tablet at HS SEROQUEL 100 MG TABS 587520 QUETIAPINE FUMARATE Inactive SEROQUEL 50 MG TABS 1 tablet at HS SEROQUEL 50 MG TABS 278505 QUETIAPINE FUMARATE Inactive HYDROCODONE-ACETAMINOPHEN 5-325 MG TABS 1/2 to 1 po q 4 hours prn pain 11/13 HYDROCODONE-ACETAMINOPHEN 5-325 MG TABS 671493 HYDROCODONE- ACETAMINOPHEN Inactive PREDNISONE 20 MG TABS 1 tablet by mouth twice daily for 2 days, then 1 daily for 2 days PREDNISONE 20 MG TABS 351807 PREDNISONE Inactive GUAIFENESIN-CODEINE 100-10 MG/5ML SYRP 1-2 tsp PO q6h PRN cough GUAIFENESIN-CODEINE 100-10 MG/5ML SYRP 362890 GUAIFENESIN-CODEINE Inactive GUAIFENESIN-CODEINE 100-10 MG/5ML SYRP 1 tsp PO q6h PRN cough GUAIFENESIN-CODEINE 100-10 MG/5ML SYRP 742904 GUAIFENESIN-CODEINE Inactive BACTROBAN 2 % OINTMENT Apply bid to affected area BACTROBAN 2 % OINTMENT 977698 MUPIROCIN Inactive PROMETHAZINE HCL 25 MG TABS take 1 po Q 8 hours prn nausea and vomiting 12/11 PROMETHAZINE HCL 25 MG TABS 312429 PROMETHAZINE HCL Inactive AMOXICILLIN 400 MG/5ML SUSR 6ml three times a day for 10 days AMOXICILLIN 400 MG/5ML SUSR 281158 AMOXICILLIN Inactive LAMISIL AT 1 % CREA apply bid to rash LAMISIL AT 1 % CREA 178757 TERBINAFINE HCL Inactive PROMETHAZINE HCL 25 MG TABS 1 four times a day as needed for nausea/vomiting PROMETHAZINE HCL 25 MG TABS 226168 PROMETHAZINE HCL Inactive GUAIFENESIN-CODEINE 100-10 MG/5ML SYRP 1 tsp PO q6h PRN cough GUAIFENESIN-CODEINE 100-10 MG/5ML SYRP 178516 GUAIFENESIN-CODEINE Inactive KEFLEX 500 MG CAP 1 po qid KEFLEX 500 MG CAP 766593 CEPHALEXIN Inactive GUAIFENESIN-CODEINE 100-10 MG/5ML SYRP 1 tsp PO q6h PRN cough GUAIFENESIN-CODEINE 100-10 MG/5ML SYRP 136193 GUAIFENESIN-CODEINE Inactive TYLENOL WITH CODEINE #3 300-30 MG TABS ONE TABLET FOUR TIMES A DAY NEEDED for pain or cough TYLENOL WITH CODEINE #3 300-30 MG TABS 391260 ACETAMINOPHEN-CODEINE Inactive STROMECTOL 3 MG TABS 6 pills by mouth x 1; repeat in 10 days 2012 STROMECTOL 3 MG TABS 400541 IVERMECTIN Inactive LOMOTIL 2.5-0.025 MG TAB 1 to 2 four times a day as needed for diarrhea 01/21 LOMOTIL 2.5-0.025 MG TAB 5263547 DIPHENOXYLATE-ATROPINE Inactive CELEXA 20 MG TABS Take 1.5 tablets daily CELEXA 20 MG TABS 472777 CITALOPRAM HYDROBROMIDE Inactive PERMETHRIN 5 % CREA apply neck to toes tonight and then rinse off in morning. repeat at 7 days PERMETHRIN 5 % CREA 540377 PERMETHRIN Inactive STROMECTOL 3 MG TABS 5 tablets by mouth one time on an empty stomach, may repeat in 2 weeks if needed STROMECTOL 3 MG TABS 129280 IVERMECTIN Inactive BACTRIM DS 800-160 MG TAB 1 tab by mouth twice daily BACTRIM DS 800-160 MG TAB 915511 TRIMETHOPRIM-SULFAMETHOXAZOLE Inactive SEROQUEL 200 MG TABS 1 tablet at bedtime. SEROQUEL 200 MG TABS 825798 QUETIAPINE FUMARATE Inactive CYCLOBENZAPRINE HCL 10 MG TABS 1 three times a day as needed for back spasm CYCLOBENZAPRINE HCL 10 MG TABS 434156 CYCLOBENZAPRINE HCL Inactive HYDROXYZINE HCL 10 MG TABS 1 to 2 three times a day as needed for itching HYDROXYZINE HCL 10 MG TABS 230834 HYDROXYZINE HCL Inactive TESSALON PERLES 100 MG CAP 1 tablet by mouth 3 times daily 01/20 TESSALON PERLES 100 MG CAP 140389 BENZONATATE Inactive CYCLOBENZAPRINE HCL 10 MG TABS 1/2 to 1 tablet by mouth three times daily as needed for muscle spasm/pain CYCLOBENZAPRINE HCL 10 MG TABS 892284 CYCLOBENZAPRINE HCL Inactive CYCLOBENZAPRINE HCL 10 MG TABS 1/2 to 1 tablet every 4 hours CYCLOBENZAPRINE HCL 10 MG TABS 165017 CYCLOBENZAPRINE HCL Inactive LATUDA 20 MG TABS 1 tab at at night with meal LATUDA 20 MG TABS LURASIDONE HCL Inactive IBUPROFEN 600 MG TAB 1 tablet three times a day as needed IBUPROFEN 600 MG TAB 331323 IBUPROFEN Inactive PROAIR HFA 108 (90 BASE) MCG/ACT AERS 2 puffs four times a day as needed 2011 PROAIR HFA 108 (90 BASE) MCG/ACT AERS ALBUTEROL SULFATE Inactive FETZIMA 40 MG ORAL [id number] FETZIMA 40 MG ORAL [id number] LEVOMILNACIPRAN HCL Inactive SEROQUEL 200 MG ORAL TABS Take 1 tablet at hs SEROQUEL 200 MG ORAL TABS 991260 QUETIAPINE FUMARATE Inactive AMOXICILLIN 500 MG TABS 2 tabs twice a day for 10 days AMOXICILLIN 500 MG TABS 237209 AMOXICILLIN Inactive PROMETHAZINE HCL 25 MG TABS 1 four times a day as needed for vomiting PROMETHAZINE HCL 25 MG TABS 177889 PROMETHAZINE HCL Inactive BACTRIM DS 800-160 MG TAB 1 tab by mouth twice daily BACTRIM DS 800-160 MG TAB 399329 TRIMETHOPRIM-SULFAMETHOXAZOLE Inactive AMOXICILLIN 400 MG/5ML SUSR 5ml po TID x 10 days AMOXICILLIN 400 MG/5ML SUSR 148033 AMOXICILLIN Inactive FLAGYL 500 MG TABS four tabs PO one time FLAGYL 500 MG TABS 400077 METRONIDAZOLE Inactive AMOXICILLIN 500 MG TABS Take one tab by mouth 3 times daily, morning, afternoon and evening for 7 days. AMOXICILLIN 500 MG TABS 931407 AMOXICILLIN Inactive AMOXICILLIN 500 MG CAPS 2 po BID x 10 days AMOXICILLIN 500 MG CAPS 362604 AMOXICILLIN Inactive AMOXICILLIN 500 MG CAPS 2 po BID x 10 days AMOXICILLIN 500 MG CAPS 629094 AMOXICILLIN Inactive PENICILLIN V POTASSIUM 500 MG TABS 1 TID PENICILLIN V POTASSIUM 500 MG TABS 294831 PENICILLIN V POTASSIUM Inactive BACTRIM DS 800-160 MG TABS 1 po BID x 10 days BACTRIM DS 800-160 MG TABS 698957 SULFAMETHOXAZOLE-TRIMETHOPRIM Inactive ZITHROMAX 250 MG TAB 2 po today, then 1 po q days 2-5 ZITHROMAX 250 MG TAB 8921604 AZITHROMYCIN Inactive TAMIFLU 75 MG CAPS 1 bid x 5 days TAMIFLU 75 MG CAPS OSELTAMIVIR PHOSPHATE Inactive AZITHROMYCIN 250 MG TABS 2 po qd x 1 day, then 1 po qd x 4 days AZITHROMYCIN 250 MG TABS 4553121 AZITHROMYCIN Inactive MEDROL (NISA) 4 MG TABS 6 tabs on day 1, 5 tabs on day 2, 4 tabs on day 3, 3 tabs on day 4, 2 tabs on day 5, 1 tab on day 6 MEDROL ( NISA) 4 MG TABS 291029 METHYLPREDNISOLONE Inactive SUPRAX 400 MG CAPS Take one tablet twice daily for 7 days SUPRAX 400 MG CAPS CEFIXIME Inactive Immunizations Vaccine Administration Date Value Standard Description Seasonal influenza vaccine, injectable, containing preservative, for > 3 years old (Afluria, FluLaval, Fluzone, Fluvirin, Fluarix, Agriflu(>=18 yo)) Fluzone (>3 yrs.) [[id number]] Influenza, seasonal, injectable pneumococcal immunization administered Pneumovax 23 [CVX33] pneumococcal polysaccharide vaccine, 23 valent Seasonal influenza vaccine, injectable, containing preservative, for > 3 years old (Afluria, FluLaval, Fluzone, Fluvirin, Fluarix, Agriflu(>=18 yo)) Fluzone (>3 yrs.) [[id number]] Influenza, seasonal, injectable Seasonal influenza vaccine, injectable, containing preservative, for > 3 years old (Afluria, FluLaval, Fluzone, Fluvirin, Fluarix, Agriflu(>=18 yo)) Fluzone (>3 yrs.) [YGB145] Influenza, seasonal, injectable hepatitis B vaccine #1 [...] Measured Encounters Code Encounter Date Provider Facility CPT-18843 Level 3 Est. Patient 11:04:11 CLEAN ENERGY POLICY ANALYST Jani Marrero MD [facility] CPT-27695 Level 3 Est. Patient 12:02:27 CLEAN ENERGY POLICY ANALYST Andrei Nichols MD [facility] CPT-63049 Level 3 Est. Patient 12:47:17 CLEAN ENERGY POLICY ANALYST Andrei Nichols MD [facility] CPT-39760 Level 3 Est. Patient 14:51:20 CLEAN ENERGY POLICY ANALYST Shikha Randolph [facility] CPT-97301 Level 3 Est. Patient 10:42:38 CDT Shikha Randolph [facility] CPT-12218 Level 3 Est. Patient 18:20:39 CDT Prisca Lockwood MD PhD [facility]-60184 Level 3 Est. Patient 16:42:47 CLEAN ENERGY POLICY ANALYST Rosalie Boyd [facility] CPT-53156 Level 3 Est. Patient 14:34:36 CLEAN ENERGY POLICY ANALYST Rosalie Boyd [facility]-07483 Level 4 Est. Patient 10:23:07 CLEAN ENERGY POLICY ANALYST Andrei Nichols MD [facility]-73080 Level 3 Est. Patient 16:47:31 CLEAN ENERGY POLICY ANALYST Andrei Nichols MD [facility]-50280 Level 3 Est. Patient 11:59:14 CDT Rosalie Oliver [facility]-69313 Level 3 Est. Patient 15:30:34 CDT Giovany URBINA [facility]-76299 Level 3 Est. Patient 11:03:03 CDT Rosalie Boyd [facility]-42670 Level 3 Est. Patient 11:08:07 CDT Rosalie Boyd [facility] [place] CPT-01399 Level 3 Est. Patient 14:07:32 CDT Andrei Nichols MD [facility]-68893 Level 3 Est. Patient 17:08:28 CDT Andrei Nichols MD [facility]-84498 Level 3 Est. Patient 13:10:13 CDT Jani Marrero MD [facility]-55495 Level 3 Est. Patient 11:27:12 CDT Jani Marrero MD [facility]-43747 Level 3 Est. Patient 13:44:42 CDT Andrei Nichols MD [facility]-52312 Level 3 Est. Patient 12:34:57 CLEAN ENERGY POLICY ANALYST Andrei Nichols MD [facility]-73226 Level 3 Est. Patient 15:30:06 CDT Jani Marrero MD [facility] CPT-65417 Level 3 Est. Patient 21:59:00 CDT Corky Mckeon DO [facility] CPT-36975 Level 3 Est. Patient 17:12:49 CDT Andrei Nichols MD [facility] CPT-72294 Level 4 Est. Patient 12:27:45 CLEAN ENERGY POLICY ANALYST Andrei Nichols MD [facility] CPT-91955 Level 3 Est. Patient 12:15:34 CLEAN ENERGY POLICY ANALYST Andrei Nichols MD [facility] Procedures Code Procedure Name Date Entry Date Standard Description CPT-OV Office Visit 11:36:40 CDT CPT-64328 Administration 2+ single or combination vaccines inc oral 07:50:30 CDT CPT-40411 Administration single or combination vaccine inc oral 07 :50:30 CDT CPT-93364 Pneumovax 07:50:30 CDT CPT-62496 Influenza split virus > age 3 07:50:30 CDT CPT-OV Office Visit 11:49:10 CLEAN ENERGY POLICY ANALYST CPT-75680 Nexplanon Removal with Reinsertion 14:02:06 CLEAN ENERGY POLICY ANALYST CPT-J7307 Nexplanon (Implant) 14:02:06 CLEAN ENERGY POLICY ANALYST CPT-OV Office Visit 14:02:06 CLEAN ENERGY POLICY ANALYST CPT-OV Office Visit 11:58:04 CLEAN ENERGY POLICY ANALYST CPT-34448 Administration single or combination vaccine inc oral 11 :31:07 CDT CPT-77851 Influenza split virus > age 3 11:31:07 CDT CPT-99782 Administration single or combination vaccine inc oral 10 :34:13 CDT CPT-25335 Influenza split virus > age 3 10:34:13 CDT
--- OUTSIDE RECORDS SUMMARY | 2017-01-02 18:22 | XMS REPORT | Clinical Summary ---
Author Author Admin, E Organization [facility] Address Unknown Phone Unavailable Allergies, Adverse Reactions, [...] Sinusitis, frontal, acute 461.1 Resolved Shikha Yokum [employer]IFE Acute frontal sinusitis Pharyngitis 462 Resolved Shikha Yokum [employer] MID[employer]IFE Acute pharyngitis Scabies 133.0 Resolved Shikha Yokum [employer]AY MID[employer]IFE Scabies Folliculitis 704.8 Resolved Shikha Yokum [employer]AY MIDWIFE Other specified diseases of hair and hair [...] Pool PA ECZEMA ICD-692.9 Inactive Shikhaciro Lockeum [employer]AY MIDWIFE OTITIS MEDIA ICD-382.9 Inactive Ary Pool PA 09/16 PHARYNGITIS ICD-462 Inactive Andrei Nichols MD UNSPECIFIED DISORDER TEETH&SUPPORTING STRUCTURES ICD-525.9 12/29 Inactive Shikha Randolph [employer]AY MID[employer]IFE PHARYNGITIS-ACUTE ICD-462 Inactive Rosalie Boyd LAY MIDWIFE DIARRHEA ICD-787.91 Inactive Andrei Nichols MD SHOULDER PAIN ICD-719.41 Inactive Shikha Randolph [employer]AY MIDWIFE NAUSEA AND VOMITING ICD-787.01 Inactive Andrei Nichols [...] PhD Dental caries ICD-521.00 Inactive Shikha Yokum [employer] MID[employer]IFE Tooth pain ICD-525.9 Inactive Prisca Lockwood MD PhD Head lice ICD-132.0 Inactive Prisca Lockwood MD PhD Upper respiratory infection ICD-465.9 Inactive Prisca Lockwood MD PhD Sinusitis, frontal, acute ICD-461.1 Inactive Shikha Yokum [employer]IFE Pharyngitis ICD-462 Inactive Shikha Yokum [employer]AY MIDWIFE 2013 Scabies ICD-133.0 Inactive Shikha Yokum [employer]AY MIDWIFE 12/29 Folliculitis ICD-704.8 Inactive Shikha Yokum [employer]AY MID[employer]IFE Cough ICD-786.2 Inactive Andrei Nichols MD SINUSITIS, ACUTE ICD-461.9 Inactive Jani Marrero MD Medication List Medication Instructions Start Date Stop Date Generic Name NDC Status Provider Patient Instruction ZIAC 2.5-6.25 MG TAB 1 tablet daily for high blood pressure BISOPROLOL-HCTZ [id number] Active Corky Mckeon DO Active MELOXICAM 15 MG TABS 1 daily for knee pain MELOXICAM 63776551865 Active Renetta Ryan APRN Active CYCLOBENZAPRINE HCL 10 MG TABS 1 three times a day as needed for muscle spasm CYCLOBENZAPRINE HCL 96461566270 Active Renetta Ryan APRN Active BUSPIRONE HCL 10 MG ORAL TABS 2 TABS PO BID BUSPIRONE HCL 01048589081 Active Corky Mckeon DO Active AMITRIPTYLINE HCL 75 MG ORAL TABS 1 TAB Q HS AMITRIPTYLINE HCL 48656132244 Active Renetta Ryan APRN Active PROAIR HFA 108 (90 BASE) MCG/ACT AERS 2 puffs four times a day as needed 2015 ALBUTEROL SULFATE 11097669113 No Longer Active Renetta Ryan APRN Active KLONOPIN 1 MG TABS 1 tablet TID CLONAZEPAM 94879494737 No Longer Active Renetta Ryan APRN Active ZITHROMAX 250 MG TAB 2 po today, then 1 po q days 2-5 AZITHROMYCIN 82239101944 No Longer Active Jani Marrero MD Active IBUPROFEN 800 MG TABS 1 tab PO TID IBUPROFEN 15996559566 Active Jani Marrero MD Active WELLBUTRIN SR 100 MG ORAL [id number] 1 TAB PO DAILY BUPROPION HCL 78818783279 Active Jani Marrero MD Active AMITRIPTYLINE HCL 50 MG TAB 1 po q hs for sleep AMITRIPTYLINE HCL 85007170336 No Longer Active Jani Marrero MD Active PROMETHAZINE HCL 25 MG TABS 1 four times a day as needed for vomiting PROMETHAZINE HCL 41030809914 No Longer Active Jani Marrero MD Active AMOXICILLIN 500 MG TABS 2 tabs twice a day for 10 days AMOXICILLIN 89545533349 No Longer Active Jani Marrero MD Active SEROQUEL 200 MG ORAL TABS Take 1 tablet at hs QUETIAPINE FUMARATE 99377247735 No Longer Active Jani Marrero MD Active FETZIMA 40 MG ORAL [id number] LEVOMILNACIPRAN HCL 94324074642 No Longer Active Jani Marrero MD Active PROAIR HFA 108 (90 BASE) MCG/ACT AERS 2 puffs four times a day as needed 2011 ALBUTEROL SULFATE 96713387770 No Longer Active Alondra Denton MD Active IBUPROFEN 600 MG TAB 1 tablet three times a day as needed IBUPROFEN 21502549419 No Longer Active Alondra Denton MD Active LATUDA 20 MG TABS 1 tab at at night with meal LURASIDONE HCL 51148826129 No Longer Active Alondra Denton MD Active CYCLOBENZAPRINE HCL 10 MG TABS 1/2 to 1 tablet every 4 hours CYCLOBENZAPRINE HCL 38248222919 No Longer Active Alondra Denton MD Active CYCLOBENZAPRINE HCL 10 MG TABS 1/2 to 1 tablet by mouth three times daily as needed for muscle spasm/pain CYCLOBENZAPRINE HCL 34635790782 No Longer Active Alondra Denton MD Active SUPRAX 400 MG CAPS Take one tablet twice daily for 7 days CEFIXIME 04332494522 No Longer Active Shikha Yokum LAY MIDWIFE Active TESSALON PERLES 100 MG CAP 1 tablet by mouth 3 times daily 01/20 BENZONATATE 97346027287 No Longer Active Shikha Yokum LAY MIDWIFE Active HYDROXYZINE HCL 10 MG TABS 1 to 2 three times a day as needed for itching HYDROXYZINE HCL 97670656831 No Longer Active Shikha Yokum LAY MIDWIFE Active CYCLOBENZAPRINE HCL 10 MG TABS 1 three times a day as needed for back spasm CYCLOBENZAPRINE HCL 41657365700 No Longer Active Shikha Yokum LAY MIDWIFE Active SEROQUEL 200 MG TABS 1 tablet at bedtime. QUETIAPINE FUMARATE 08617014340 No Longer Active Shikah Yokum LAY MIDWIFE Active BACTRIM DS 800-160 MG TAB 1 tab by mouth twice daily TRIMETHOPRIM-SULFAMETHOXAZOLE 24425857594 No Longer Active Shikha Yokjose SORIANO Active STROMECTOL 3 MG TABS 5 tablets by mouth one time on an empty stomach, may repeat in 2 weeks if needed IVERMECTIN 80698994078 No Longer Active Shikha Yokum LAY MIDWIFE Active PERMETHRIN 5 % CREA apply neck to toes tonight and then rinse off in morning. repeat at 7 days PERMETHRIN 64753213883 No Longer Active Andrei Nichols MD Active MEDROL (NISA) 4 MG TABS 6 tabs on day 1, 5 tabs on day 2, 4 tabs on day 3, 3 tabs on day 4, 2 tabs on day 5, 1 tab on day 6 METHYLPREDNISOLONE 70387122239 No Longer Active Prisca Lockwood MD PhD Active AZITHROMYCIN 250 MG TABS 2 po qd x 1 day, then 1 po qd x 4 days AZITHROMYCIN 48457559553 No Longer Active Prisca Lockwood MD PhD Active CELEXA 20 MG TABS Take 1.5 tablets daily CITALOPRAM HYDROBROMIDE 86271710470 No Longer Active Prisca Lockwood MD PhD Active LOMOTIL 2.5-0.025 MG TAB 1 to 2 four times a day as needed for diarrhea 01/21 DIPHENOXYLATE-ATROPINE 18879568196 No Longer Active Prisca Lockwood MD PhD Active TAMIFLU 75 MG CAPS 1 bid x 5 days OSELTAMIVIR PHOSPHATE 80449901311 No Longer Active Rosalie Boyd APRN Active ZITHROMAX 250 MG TAB 2 po today, then 1 po q days 2-5 AZITHROMYCIN 33627886676 No Longer Active Rosalie Boyd APRN Active STROMECTOL 3 MG TABS 6 pills by mouth x 1; repeat in 10 days 2012 IVERMECTIN 41340000250 No Longer Active Rosalie Boyd APRN Active TYLENOL WITH CODEINE #3 300-30 MG TABS ONE TABLET FOUR TIMES A DAY NEEDED for pain or cough ACETAMINOPHEN-CODEINE 71184189140 No Longer Active Rosalie Boyd APRN Active GUAIFENESIN-CODEINE 100-10 MG/5ML SYRP 1 tsp PO q6h PRN cough GUAIFENESIN-CODEINE 50363612377 No Longer Active Rosalie Boyd APRN Active KEFLEX 500 MG CAP 1 po qid CEPHALEXIN 86827061974 No Longer Active Rosalie Boyd APRN Active GUAIFENESIN-CODEINE 100-10 MG/5ML SYRP 1 tsp PO q6h PRN cough GUAIFENESIN-CODEINE 60549030454 No Longer Active Rosalie Boyd APRN Active PROMETHAZINE HCL 25 MG TABS 1 four times a day as needed for nausea/vomiting PROMETHAZINE HCL 66350982213 No Longer Active Rosalie Boyd APRN Active LAMISIL AT 1 % CREA apply bid to rash TERBINAFINE HCL 20357403739 No Longer Active Andrei Nichols MD Active AMOXICILLIN 400 MG/5ML SUSR 6ml three times a day for 10 days AMOXICILLIN 03344154667 No Longer Active Andrei Nichols MD Active PROMETHAZINE HCL 25 MG TABS take 1 po Q 8 hours prn nausea and vomiting 12/11 PROMETHAZINE HCL 61097945046 No Longer Active Andrei Nichols MD Active BACTROBAN 2 % OINTMENT Apply bid to affected area MUPIROCIN 78892154769 No Longer Active Andrei Nichols MD Active GUAIFENESIN-CODEINE 100-10 MG/5ML SYRP 1 tsp PO q6h PRN cough GUAIFENESIN-CODEINE 13910710279 No Longer Active Andrei Nichols MD Active BACTRIM DS 800-160 MG TABS 1 po BID x 10 days SULFAMETHOXAZOLE-TRIMETHOPRIM 15083361852 No Longer Active Rosalie Boyd APRN Active GUAIFENESIN-CODEINE 100-10 MG/5ML SYRP 1-2 tsp PO q6h PRN cough GUAIFENESIN-CODEINE 74905493408 No Longer Active Giovany URBINA Active PREDNISONE 20 MG TABS 1 tablet by mouth twice daily for 2 days, then 1 daily for 2 days PREDNISONE 45837585482 No Longer Active Giovany URBINA Active HYDROCODONE-ACETAMINOPHEN 5-325 MG TABS 1/2 to 1 po q 4 hours prn pain 11/13 HYDROCODONE-ACETAMINOPHEN 85493381650 No Longer Active Rosalie Boyd APRN Active PENICILLIN V POTASSIUM 500 MG TABS 1 TID PENICILLIN V POTASSIUM 86972576166 No Longer Active Andrei Nichols MD Active SEROQUEL 50 MG TABS 1 tablet at HS QUETIAPINE FUMARATE 28224405589 No Longer Active Andrei Nichols MD Active SEROQUEL 100 MG TABS 1 tablet at HS QUETIAPINE FUMARATE 88520103007 No Longer Active Andrei Nichols MD Active TRIAMCINOLONE ACETONIDE 0.1 % CREA apply three times daily prn rash TRIAMCINOLONE ACETONIDE 26161521407 No Longer Active Andrei Nichols MD Active AMOXICILLIN 500 MG TABS take one tab po tid x 10 days AMOXICILLIN 23187013578 No Longer Active Andrei Nichols MD Active CELEXA 20 MG TABS 1and 1/2 tablets by mouth daily CITALOPRAM HYDROBROMIDE 95206228261 No Longer Active Ary URBINA Active FLEXERIL 10 MG TAB 1/2 to one tablet every 12 hours as needed CYCLOBENZAPRINE HCL 72969757988 No Longer Active Ary URBINA Active CLONAZEPAM 1 MG TABS take at bedtime CLONAZEPAM 82668652293 No Longer Active Ary URBINA Active PERMETHRIN 5 % CREA applyhead to toes tonight and then rinse off in 18 hours. repeat at 7 days if needed. PERMETHRIN 14758162063 No Longer Active Ary URBINA Active AMOXICILLIN 500 MG CAPS 2 po BID x 10 days AMOXICILLIN 23751468980 No Longer Active Andrei Nichols MD Active TYLENOL WITH CODEINE #3 300-30 MG TABS 1 to 2 four times a day as needed for pain ACETAMINOPHEN-CODEINE 68217295941 No Longer Active Reta Hampton Active PREDNISONE 20 MG TAB 2 tabs daily for 5 days, then 1 daily for 5 days PREDNISONE 65698523502 No Longer Active Retarylee AcostaMemo Active LOMOTIL 2.5-0.025 MG TAB 1 to 2 four times a day as needed for diarrhea 05/28 DIPHENOXYLATE-ATROPINE 25164510864 No Longer Active Reta Hampton Active ALPRAZOLAM 1 MG TABS 1 tab tid ALPRAZOLAM 30156912274 No Longer Active Reta Hampton Active AMOXICILLIN 500 MG CAPS 2 po BID x 10 days AMOXICILLIN 67378968260 No Longer Active Andrei Nichols MD Active AMOXICILLIN 500 MG TABS Take one tab by mouth 3 times daily, morning, afternoon and evening for 7 days. AMOXICILLIN 74589466654 No Longer Active Virginia Alejandra RN Active VICODIN 5-300 MG TABS one tab PO Q 6 hours PRN pain HYDROCODONE-ACETAMINOPHEN 57561595338 No Longer Active Virginia Alejandra RN Active FLAGYL 500 MG TABS four tabs PO one time METRONIDAZOLE 93716768569 No Longer Active Alondra Denton MD Active MELOXICAM 15 MG TABS 1 po q day for pain with food MELOXICAM 93086063358 No Longer Active Alondra Denton MD Active AMOXICILLIN 400 MG/5ML SUSR 5ml po TID x 10 days AMOXICILLIN 52594844860 No Longer Active Jani Marrero MD Active NIX CREME RINSE 1 % LIQD apply as directed tonight, repeat at 7 days PERMETHRIN 00371411405 No Longer Active Corky Mckeon DO Active QVAR 40 MCG/ACT AERS one puff three times a day as needed BECLOMETHASONE DIPROPIONATE 05846356008 No Longer Active Andrei Nichols MD Active METHOCARBAMOL 500 MG TABS 1 to 2 qid prn back spasm METHOCARBAMOL 74313700776 No Longer Active Andrei Nichols MD Active VISTARIL 25 MG CAPS 1-2 tablets three times a day as needed HYDROXYZINE PAMOATE 23095917031 No Longer Active Andrei Nichols MD Active SEROQUEL 100 MG TABS 1/2 TABLET at hs QUETIAPINE FUMARATE 83833734982 No Longer Active Aicha Rizzo RN Active BACTRIM DS 800-160 MG TAB 1 tab by mouth twice daily TRIMETHOPRIM-SULFAMETHOXAZOLE 31279098136 No Longer Active Prisca Lockwood MD PhD Active CYCLOBENZAPRINE HCL 10 MG TABS TAKE 1/2 - 1 TAB EVERY 12 HOURS NEEDED 2010 CYCLOBENZAPRINE HCL 04511814360 No Longer Active Andrei Nichols MD Active CYCLOBENZAPRINE HCL 10 MG TABS TAKE 1/2 - 1 TAB EVERY 12 HOURS NEEDED 2010 CYCLOBENZAPRINE HCL 10 MG TABS 906026 CYCLOBENZAPRINE HCL Inactive SEROQUEL 100 MG TABS 1/2 TABLET at hs SEROQUEL 100 MG TABS 904341 QUETIAPINE FUMARATE Inactive VISTARIL 25 MG CAPS 1-2 tablets three times a day as needed VISTARIL 25 MG CAPS 060872 HYDROXYZINE PAMOATE Inactive METHOCARBAMOL 500 MG TABS 1 to 2 qid prn back spasm METHOCARBAMOL 500 MG TABS 591531 METHOCARBAMOL Inactive QVAR 40 MCG/ACT AERS one puff three times a day as needed QVAR 40 MCG/ACT AERS BECLOMETHASONE DIPROPIONATE Inactive NIX CREME RINSE 1 % LIQD apply as directed tonight, repeat at 7 days NIX CREME RINSE 1 % LIQD PERMETHRIN Inactive MELOXICAM 15 MG TABS 1 po q day for pain with food MELOXICAM 15 MG TABS 600593 MELOXICAM Inactive ALPRAZOLAM 1 MG TABS 1 tab tid ALPRAZOLAM 1 MG TABS 901408 ALPRAZOLAM Inactive LOMOTIL 2.5-0.025 MG TAB 1 to 2 four times a day as needed for diarrhea 05/28 LOMOTIL 2.5-0.025 MG TAB 2164393 DIPHENOXYLATE-ATROPINE Inactive PREDNISONE 20 MG TAB 2 tabs daily for 5 days, then 1 daily for 5 days PREDNISONE 20 MG TAB 569744 PREDNISONE Inactive TYLENOL WITH CODEINE #3 300-30 MG TABS 1 to 2 four times a day as needed for pain TYLENOL WITH CODEINE #3 300-30 MG TABS ACETAMINOPHEN-CODEINE Inactive PERMETHRIN 5 % CREA applyhead to toes tonight and then rinse off in 18 hours. repeat at 7 days if needed. PERMETHRIN 5 % CREA 170586 PERMETHRIN Inactive CLONAZEPAM 1 MG TABS take at bedtime CLONAZEPAM 1 MG TABS 573533 CLONAZEPAM Inactive FLEXERIL 10 MG TAB 1/2 to one tablet every 12 hours as needed FLEXERIL 10 MG TAB CYCLOBENZAPRINE HCL Inactive CELEXA 20 MG TABS 1and 1/2 tablets by mouth daily CELEXA 20 MG TABS 974342 CITALOPRAM HYDROBROMIDE Inactive AMOXICILLIN 500 MG TABS take one tab po tid x 10 days AMOXICILLIN 500 MG TABS 711708 AMOXICILLIN Inactive TRIAMCINOLONE ACETONIDE 0.1 % CREA apply three times daily prn rash TRIAMCINOLONE ACETONIDE 0.1 % CREA 9926201 TRIAMCINOLONE ACETONIDE Inactive SEROQUEL 100 MG TABS 1 tablet at HS SEROQUEL 100 MG TABS 910733 QUETIAPINE FUMARATE Inactive SEROQUEL 50 MG TABS 1 tablet at HS SEROQUEL 50 MG TABS 027037 QUETIAPINE FUMARATE Inactive HYDROCODONE-ACETAMINOPHEN 5-325 MG TABS 1/2 to 1 po q 4 hours prn pain 11/13 HYDROCODONE-ACETAMINOPHEN 5-325 MG TABS 933225 HYDROCODONE- ACETAMINOPHEN Inactive PREDNISONE 20 MG TABS 1 tablet by mouth twice daily for 2 days, then 1 daily for 2 days PREDNISONE 20 MG TABS 954778 PREDNISONE Inactive GUAIFENESIN-CODEINE 100-10 MG/5ML SYRP 1-2 tsp PO q6h PRN cough GUAIFENESIN-CODEINE 100-10 MG/5ML SYRP 958714 GUAIFENESIN-CODEINE Inactive GUAIFENESIN-CODEINE 100-10 MG/5ML SYRP 1 tsp PO q6h PRN cough GUAIFENESIN-CODEINE 100-10 MG/5ML SYRP 981663 GUAIFENESIN-CODEINE Inactive BACTROBAN 2 % OINTMENT Apply bid to affected area BACTROBAN 2 % OINTMENT 427552 MUPIROCIN Inactive PROMETHAZINE HCL 25 MG TABS take 1 po Q 8 hours prn nausea and vomiting 12/11 PROMETHAZINE HCL 25 MG TABS 431482 PROMETHAZINE HCL Inactive AMOXICILLIN 400 MG/5ML SUSR 6ml three times a day for 10 days AMOXICILLIN 400 MG/5ML SUSR 332306 AMOXICILLIN Inactive LAMISIL AT 1 % CREA apply bid to rash LAMISIL AT 1 % CREA 699512 TERBINAFINE HCL Inactive PROMETHAZINE HCL 25 MG TABS 1 four times a day as needed for nausea/vomiting PROMETHAZINE HCL 25 MG TABS 791161 PROMETHAZINE HCL Inactive GUAIFENESIN-CODEINE 100-10 MG/5ML SYRP 1 tsp PO q6h PRN cough GUAIFENESIN-CODEINE 100-10 MG/5ML SYRP 572833 GUAIFENESIN-CODEINE Inactive KEFLEX 500 MG CAP 1 po qid KEFLEX 500 MG CAP 949076 CEPHALEXIN Inactive GUAIFENESIN-CODEINE 100-10 MG/5ML SYRP 1 tsp PO q6h PRN cough GUAIFENESIN-CODEINE 100-10 MG/5ML SYRP 249761 GUAIFENESIN-CODEINE Inactive TYLENOL WITH CODEINE #3 300-30 MG TABS ONE TABLET FOUR TIMES A DAY NEEDED for pain or cough TYLENOL WITH CODEINE #3 300-30 MG TABS ACETAMINOPHEN-CODEINE Inactive STROMECTOL 3 MG TABS 6 pills by mouth x 1; repeat in 10 days 2012 STROMECTOL 3 MG TABS 086668 IVERMECTIN Inactive LOMOTIL 2.5-0.025 MG TAB 1 to 2 four times a day as needed for diarrhea 01/21 LOMOTIL 2.5-0.025 MG TAB 0758449 DIPHENOXYLATE-ATROPINE Inactive CELEXA 20 MG TABS Take 1.5 tablets daily CELEXA 20 MG TABS 704011 CITALOPRAM HYDROBROMIDE Inactive PERMETHRIN 5 % CREA apply neck to toes tonight and then rinse off in morning. repeat at 7 days PERMETHRIN 5 % CREA 978552 PERMETHRIN Inactive STROMECTOL 3 MG TABS 5 tablets by mouth one time on an empty stomach, may repeat in 2 weeks if needed STROMECTOL 3 MG TABS 565201 IVERMECTIN Inactive BACTRIM DS 800-160 MG TAB 1 tab by mouth twice daily BACTRIM DS 800-160 MG TAB 643587 TRIMETHOPRIM-SULFAMETHOXAZOLE Inactive SEROQUEL 200 MG TABS 1 tablet at bedtime. SEROQUEL 200 MG TABS 419212 QUETIAPINE FUMARATE Inactive CYCLOBENZAPRINE HCL 10 MG TABS 1 three times a day as needed for back spasm CYCLOBENZAPRINE HCL 10 MG TABS 545881 CYCLOBENZAPRINE HCL Inactive HYDROXYZINE HCL 10 MG TABS 1 to 2 three times a day as needed for itching HYDROXYZINE HCL 10 MG TABS 368303 HYDROXYZINE HCL Inactive TESSALON PERLES 100 MG CAP 1 tablet by mouth 3 times daily 01/20 TESSALON PERLES 100 MG CAP 471680 BENZONATATE Inactive CYCLOBENZAPRINE HCL 10 MG TABS 1/2 to 1 tablet by mouth three times daily as needed for muscle spasm/pain CYCLOBENZAPRINE HCL 10 MG TABS 989452 CYCLOBENZAPRINE HCL Inactive CYCLOBENZAPRINE HCL 10 MG TABS 1/2 to 1 tablet every 4 hours CYCLOBENZAPRINE HCL 10 MG TABS 779311 CYCLOBENZAPRINE HCL Inactive LATUDA 20 MG TABS 1 tab at at night with meal LATUDA 20 MG TABS LURASIDONE HCL Inactive IBUPROFEN 600 MG TAB 1 tablet three times a day as needed IBUPROFEN 600 MG TAB 530784 IBUPROFEN Inactive PROAIR HFA 108 (90 BASE) MCG/ACT AERS 2 puffs four times a day as needed 2011 PROAIR HFA 108 (90 BASE) MCG/ACT AERS ALBUTEROL SULFATE Inactive FETZIMA 40 MG ORAL [id number] FETZIMA 40 MG ORAL [id number] LEVOMILNACIPRAN HCL Inactive SEROQUEL 200 MG ORAL TABS Take 1 tablet at hs SEROQUEL 200 MG ORAL TABS 579338 QUETIAPINE FUMARATE Inactive AMOXICILLIN 500 MG TABS 2 tabs twice a day for 10 days AMOXICILLIN 500 MG TABS 137413 AMOXICILLIN Inactive PROMETHAZINE HCL 25 MG TABS 1 four times a day as needed for vomiting PROMETHAZINE HCL 25 MG TABS 647647 PROMETHAZINE HCL Inactive KLONOPIN 1 MG TABS 1 tablet TID KLONOPIN 1 MG TABS 132305 CLONAZEPAM Inactive PROAIR HFA 108 (90 BASE) MCG/ACT AERS 2 puffs four times a day as needed 2015 PROAIR HFA 108 (90 BASE) MCG/ACT AERS ALBUTEROL SULFATE Inactive BACTRIM DS 800-160 MG TAB 1 tab by mouth twice daily BACTRIM DS 800-160 MG TAB 609860 TRIMETHOPRIM-SULFAMETHOXAZOLE Inactive AMOXICILLIN 400 MG/5ML SUSR 5ml po TID x 10 days AMOXICILLIN 400 MG/5ML SUSR 974221 AMOXICILLIN Inactive FLAGYL 500 MG TABS four tabs PO one time FLAGYL 500 MG TABS 694874 METRONIDAZOLE Inactive AMOXICILLIN 500 MG TABS Take one tab by mouth 3 times daily, morning, afternoon and evening for 7 days. AMOXICILLIN 500 MG TABS 576041 AMOXICILLIN Inactive AMOXICILLIN 500 MG CAPS 2 po BID x 10 days AMOXICILLIN 500 MG CAPS 515444 AMOXICILLIN Inactive AMOXICILLIN 500 MG CAPS 2 po BID x 10 days AMOXICILLIN 500 MG CAPS 549591 AMOXICILLIN Inactive PENICILLIN V POTASSIUM 500 MG TABS 1 TID PENICILLIN V POTASSIUM 500 MG TABS 199052 PENICILLIN V POTASSIUM Inactive BACTRIM DS 800-160 MG TABS 1 po BID x 10 days BACTRIM DS 800-160 MG TABS 160525 SULFAMETHOXAZOLE-TRIMETHOPRIM Inactive ZITHROMAX 250 MG TAB 2 po today, then 1 po q days 2-5 ZITHROMAX 250 MG TAB 8949812 AZITHROMYCIN Inactive TAMIFLU 75 MG CAPS 1 bid x 5 days TAMIFLU 75 MG CAPS 572524 OSELTAMIVIR PHOSPHATE Inactive AZITHROMYCIN 250 MG TABS 2 po qd x 1 day, then 1 po qd x 4 days AZITHROMYCIN 250 MG TABS 6221422 AZITHROMYCIN Inactive MEDROL (NISA) 4 MG TABS 6 tabs on day 1, 5 tabs on day 2, 4 tabs on day 3, 3 tabs on day 4, 2 tabs on day 5, 1 tab on day 6 MEDROL ( NISA) 4 MG TABS 816151 METHYLPREDNISOLONE Inactive SUPRAX 400 MG CAPS Take one tablet twice daily for 7 days SUPRAX 400 MG CAPS CEFIXIME Inactive AMITRIPTYLINE HCL 50 MG TAB 1 po q hs for sleep AMITRIPTYLINE HCL 50 MG TAB 250430 AMITRIPTYLINE HCL Inactive ZITHROMAX 250 MG TAB 2 po today, then 1 po q days 2-5 ZITHROMAX 250 MG TAB 4078554 AZITHROMYCIN Inactive Immunizations Vaccine Administration Date Value Standard Description Seasonal influenza vaccine, injectable, containing preservative, for > 3 years old (Afluria, FluLaval, Fluzone, Fluvirin, Fluarix, Agriflu(>=18 yo)) Fluzone (>3 yrs.) [[id number]] Influenza, seasonal, injectable pneumococcal immunization administered Pneumovax 23 [CVX33] pneumococcal polysaccharide vaccine, 23 valent Seasonal influenza vaccine, injectable, containing preservative, for > 3 years old (Afluria, FluLaval, Fluzone, Fluvirin, Fluarix, Agriflu(>=18 yo)) Fluzone (>3 yrs.) [[id number]] Influenza, seasonal, injectable Seasonal influenza vaccine, injectable, containing preservative, for > 3 years old (Afluria, FluLaval, Fluzone, Fluvirin, Fluarix, Agriflu(>=18 yo)) Fluzone (>3 yrs.) [APB986] Influenza, seasonal, injectable hepatitis B vaccine #1 [...] Panel - Chemistry sodium, serum 144 mmol/L 397-650 2638/06/08 potassium, serum 4.3 mmol/L 3.5-5.2 chloride, serum 104 mmol/L 98-107 carbon dioxide, venous blood 28.2 mmol/L 21.0-32.0 blood glucose 86 mg/dL 65-110 calcium, serum 9.7 mg/dL 8.5-10.1 urea nitrogen, blood 13 mg/dL 7-18 creatinine, serum 0.66 mg/dL 0.55-1.30 Lab Report: HGBA1C - Chemistry hemoglobin A1C, blood, as % of total hemoglobin 5.3 % 4.3-6.0 Encounters Code Encounter Date Provider Facility CPT-77310 Level 4 Est. Patient 14:18:58 CDT Corky Mckeon DO [facility] CPT-60565 Level 3 Est. Patient 16:47:47 CDT Renetta Ryan [facility] CPT-67999 Level 3 Est. Patient 11:04:11 WARD ATTENDANT Jani Marrero MD [facility] CPT-98614 Level 3 Est. Patient 12:02:27 WARD ATTENDANT Andrei Nichols MD [facility] CPT-25445 Level 3 Est. Patient 12:47:17 WARD ATTENDANT Andrei Nichols MD [facility] CPT-77821 Level 3 Est. Patient 14:51:20 WARD ATTENDANT Shikha Randolph [facility] CPT-94755 Level 3 Est. Patient 10:42:38 CDT Shikha Randolph [facility] CPT-94577 Level 3 Est. Patient 18:20:39 CDT Prisca Lockwood MD PhD [facility] CPT-23416 Level 3 Est. Patient 16:42:47 WARD ATTENDANT Rosalie Boyd [facility] CPT-99030 Level 3 Est. Patient 14:34:36 WARD ATTENDANT Rosalie Boyd [facility] CPT-75299 Level 4 Est. Patient 10:23:07 WARD ATTENDANT Andrei Nichols MD [facility]-68010 Level 3 Est. Patient 16:47:31 WARD ATTENDANT Andrei Nichols MD [facility]-14963 Level 3 Est. Patient 11:59:14 CDT Rosalie Boyd [facility]-35163 Level 3 Est. Patient 15:30:34 CDT Giovany URBINA [facility]-91930 Level 3 Est. Patient 11:03:03 CDT Rosalie Boyd [facility]-47357 Level 3 Est. Patient 11:08:07 CDT Rosalie Boyd [facility] CPT-50057 Level 3 Est. Patient 14:07:32 CDT Andrei Nichols MD [facility]-96597 Level 3 Est. Patient 17:08:28 CDT Andrei Nichols MD [facility]-79637 Level 3 Est. Patient 13:10:13 CDT Jani Marrero MD [facility]-28813 Level 3 Est. Patient 11:27:12 CDT Jani Marrero MD [facility]-37024 Level 3 Est. Patient 13:44:42 CDT Andrei Nichols MD [facility]-16475 Level 3 Est. Patient 12:34:57 WARD ATTENDANT Andrei Nichols MD [facility]-96889 Level 3 Est. Patient 15:30:06 CDT Jani Marrero MD [facility] CPT-09206 Level 3 Est. Patient 21:59:00 CDT Corky Juliann Mike HARDIN [facility] CPT-63139 Level 3 Est. Patient 17:12:49 CDT Andrei Nichols MD [facility] CPT-51253 Level 4 Est. Patient 12:27:45 WARD ATTENDANT Andrei Nichols MD [facility] CPT-61836 Level 3 Est. Patient 12:15:34 WARD ATTENDANT Andrei Nichols MD [facility] Procedures Code Procedure Name Date Entry Date Standard Description CPT-30336 Knee, left, 3V - XRAY USE ONLY 14:53:02 CDT CPT-OV Office Visit 11:36:40 CDT CPT-19193 Administration 2+ single or combination vaccines inc oral 07:50:30 CDT CPT-52992 Administration single or combination vaccine inc oral 07 :50:30 CDT CPT-30624 Pneumovax 07:50:30 CDT CPT-38635 Influenza split virus > age 3 07:50:30 CDT CPT-OV Office Visit 11:49:10 WARD ATTENDANT CPT-19783 Nexplanon Removal with Reinsertion 14:02:06 WARD ATTENDANT CPT-J7307 Nexplanon (Implant) 14:02:06 WARD ATTENDANT CPT-OV Office Visit 14:02:06 WARD ATTENDANT CPT-OV Office Visit 11:58:04 WARD ATTENDANT CPT-88421 Administration single or combination vaccine inc oral 11 :31:07 CDT CPT-06034 Influenza split virus > age 3 11:31:07 CDT CPT-91514 Administration single or combination vaccine inc oral 10 :34:13 CDT CPT-19333 Influenza split virus > age 3 10:34:13 CDT
--- OUTSIDE RECORDS SUMMARY | 2017-01-02 18:22 | XMS REPORT ---
Author Author ESPERANZA NEUMANN Organization [facility] Address [address] [place] [address] Care Team Providers Care Field Trainer Name Role Phone ESPERANZA NEUMANN Unavailable PROBLEMS Type Condition ICD9-CM Code ADR00-BN Code Onset Dates Condition Status SNOMED Code Problem Obesity (BMI 30-39.9) E66.9 Active 260712684 Problem History of substance abuse Z87.898 Active 149908710 Problem Morbid obesity due to excess calories E66.01 Active 042326575 Problem Lumbago with sciatica, left side M54.42 Active 914231284 Problem Lumbago with sciatica, right side M54.41 Active 592942005 Problem Family history of diabetes mellitus Z83.3 Active 102348762 Problem Family history of hypertension Z82.49 Active 961918163 Problem Other chronic pain G89.29 Active 56026394 Problem Routine health maintenance Z00.00 Active 310088591 Assessment Sore throat J02.9 Feb, Active 450881976 Problem Family history of migraine Z82.0 Active 039847092 Problem Gastroesophageal reflux disease without esophagitis K21.9 Active 121302849 Assessment Pharyngitis due to other organism J02.8 Feb, Active 713467148 Problem Migraine without aura and with status migrainosus, not intractable G43.001 Active 431147864 ALLERGIES Substance Reaction Event Type Date Status N.K.D.A. Unknown Non Drug Allergy Feb, Unknown SOCIAL HISTORY No smoking Hx information available PLAN OF CARE VITAL SIGNS Height 64.5 in 2016-02-22 Weight 241.8 lbs 2016-02-22 Heart Rate 100 bpm 2016-02-22 Respiratory Rate 18 2016-02-22 BMI 40.86 kg/m2 2016-02-22 Blood pressure systolic 124 mmHg 2016-02-22 Blood pressure diastolic 82 mmHg 2016-02-22 MEDICATIONS Medication Instructions Dosage Frequency Start Date End Date Duration Status Seroquel 200 MG Orally Once a day 1 tablet at bedtime 24h Active Wellbutrin 100 MG 1 tablet 24h Active Tylenol Extra Strength 500 MG Orally every 6 hrs 2 tablets as needed 6h Active Omeprazole 20 mg Orally 2 times a day 1 capsules 12h Dec, 30 day(s) Active Ibuprofen 800 MG Orally Three times a day 1 tablet 8h Active Melatonin 3 MG Orally Once a day 1 tablet at bedtime as needed with food 24h Active BusPIRone HCl 10 MG Orally Twice a day 1 tablet 12h Active Amoxicillin 500 MG Orally every 12 hrs 1 capsule 12h Feb, Feb, 10 day(s) Active RESULTS Name Result Date Reference Range STREP A (IN HOUSE) 2016-02-22 STREP A Negative Control + Lot # [id number] Exp date PROCEDURES Procedure Date Ordered Related Diagnosis Body Site STREP A ASSAY W/OPTIC Feb 22, 2016 Office Visit, Est Pt., Level 3 Feb 22, 2016 IMMUNIZATIONS No Known Immunizations
--- OUTSIDE RECORDS SUMMARY | 2017-01-02 18:22 | XMS REPORT ---
Author Author [facility] Medical Staff Organization [facility] Address [address], [place] [id number] Phone [phone] Care Team Providers Care Section Weaver Name Role Phone FELIPE MONROE MD PP [phone] Summary purpose TRANSITION OF CARE AUTO GENERATION [...] for this patient visit History of procedures No procedures recorded for this patient visit. Functional status Functional Status Finding Observation Time Abdomen Appearance round [id number]:45 Abdomen soft :45 Bowel Sounds present 53-22-248047:45 Kapoor no :45 Urination normal 64-36-264575:45 Quality sym/unlabored :45 Cough absent :45 Secretions no :45 Breath Sounds RUL clear 89-15-136031:45 Breath Sounds RML clear :45 Breath Sounds RLL clear 21-08-772719:45 Breath Sounds YANDY clear :45 Breath Sounds LLL clear :45 Airway natural :45 Chest Tube no :45 Oxygen no :56 Temp >100.4 no :45 Temp <96.8 no :45 Chills with rigors no 00-34-254333:45 HR > 90bpm no :45 Respirations > 20 no :45 Systolic <90 no :45 headache stiff neck no :45 Rapid Resp no :45 Nursing Note VSS. Rx keflex, bactroban oint, et naprosyn. Discharge instructions reviewed. Pt verbalizes understanding. Denies needs, questions, or concerns. Discharge instructions signed et copy to pt. Pt discharged in good, stable condition. :56 Vital signs Type Value Date Respiration Rate 18breaths per minute :56 Pulse 93beats per minute :56 Oxygen Saturation 99% :56 BP Systolic 124mmHg 92-52-287232:56 BP Diastolic 78mmHg 01-67-685602:56 Temperature 98.0F 23-12-763160:56 Weight 174LB 96-54-824417:32 Social history Type Value Smoking Status CURRENT EVERY DAY SMOKER Treatment Plan No treatment plan text is available for this visit. Hospital discharge instructions Dismissal Condition good Disposition on DC home DC Inst/Educ Give yes Med/Side Effects Rev yes
--- OUTSIDE RECORDS SUMMARY | 2017-01-02 18:24 | XMS REPORT | Clinical Summary ---
Author Author Admin, JAVIER Organization [facility] Address Unknown Phone Unavailable Allergies, Adverse Reactions, Alerts Allergy Name Reaction Description Start Date Severity Status Provider NKDA Critical Active Shikha Randolph BO Conditions or Problems Problem Name Problem Code Onset Date Status Entry Date Provider Comment Standard Description Annotate ANXIETY DISORDER 300.00 Active Andrie Nichols MD Anxiety state, unspecified DEPRESSION 311 [...] Diarrhea Dental caries 521.00 Resolved Shikha Yomelanieum HAND II CUTTER Dental caries, unspecified Tooth pain 525.9 Resolved Prisca Lockwood MD PhD Unspecified disorder of the teeth and supporting structures Head lice 132.0 Resolved Prisca Lockwood MD PhD Pediculus capitis [head louse] Upper respiratory infection 465.9 Resolved Prisca Lockwood MD PhD Acute upper respiratory infections of unspecified site Sinusitis, frontal, acute 461.1 Resolved Shikha Yokum HAND II CUTTER Acute frontal sinusitis Pharyngitis 462 Resolved Shikha Yokum HAND II CUTTER Acute pharyngitis Scabies 133.0 Resolved Shikha Yokum HAND II CUTTER Scabies Folliculitis 704.8 Resolved Shikha Yokum HAND II CUTTER Other specified diseases of hair and hair follicles Cough 786.2 Resolved Andrei Nichols MD Cough Dysuria 788.1 Active Shikha Randolph APRN Dysuria Vomiting 787.03 Active Andrei Nichols MD Vomiting alone Pharyngitis 462 Active Andrei Nichols MD Acute pharyngitis PEDICULUS CAPITIS ICD-132.0 Inactive Andrei Nichols MD [...] Pool PA ECZEMA ICD-692.9 Inactive Shikha Randolph APRN OTITIS MEDIA ICD-382.9 Inactive Ary Pool PA 09/16 PHARYNGITIS ICD-462 Inactive Andrei Nichols MD UNSPECIFIED DISORDER TEETH&SUPPORTING STRUCTURES ICD-525.9 12/29 Inactive Shikha Randolph HAND II CUTTER PHARYNGITIS-ACUTE ICD-462 Inactive Rosalie Boyd HAND II CUTTER SHOULDER PAIN ICD-719.41 Inactive Shikha Randolph HAND II CUTTER NAUSEA AND VOMITING ICD-787.01 Inactive Andrei Nichols MD DIARRHEA, ACUTE ICD-787.91 Inactive Andrei Nichols MD ABSCESS, SKIN ICD-682.9 Inactive Andrei Nichols MD DIARRHEA ICD-787.91 Inactive Andrei Nichols MD VAGINAL DISCHARGE ICD-623.5 Inactive Prisca Lockwood MD PhD TINEA PEDIS ICD-110.4 Inactive Prisca Lockwood MD PhD Pharyngitis, acute ICD-462 Inactive Prisca Lockwood MD PhD Diarrhea, acute ICD-787.91 Inactive Prisca Lockwood MD PhD Dental caries ICD-521.00 Inactive Shikha Randolph HAND II CUTTER Tooth pain ICD-525.9 Inactive Prisca Lockwood MD PhD Head lice ICD-132.0 Inactive Prisca Lockwood MD PhD Upper respiratory infection ICD-465.9 Inactive Prisca Lockwood MD PhD Sinusitis, frontal, acute ICD-461.1 Inactive Shikha Lockeum HAND II CUTTER Pharyngitis ICD-462 Inactive Shikha Yokum HAND II CUTTER 2013 Scabies ICD-133.0 Inactive Shikha Yokum HAND II CUTTER 12/29 Folliculitis ICD-704.8 Inactive Shikha Ageesiva HAND II CUTTER Cough ICD-786.2 Inactive Andrei Nichols MD COUGH ICD-786.2 Inactive Prisca Lockwood MD PhD 07/08 SEXUAL ACTIVITY, HIGH RISK ICD-V69.2 Inactive Prisca Lockwood MD PhD Medication List Medication Instructions Start Date Stop Date Generic Name NDC Status Provider Patient Instruction PROAIR HFA 108 (90 BASE) MCG/ACT AERS 2 puffs four times a day as needed 2015 ALBUTEROL SULFATE 94879904342 Active Andrei Nichols MD Active KLONOPIN 1 MG TABS 1 tablet TID CLONAZEPAM 66972265373 Active Andrei Nichols MD Active AMOXICILLIN 500 MG TABS 2 tabs twice a day for 10 days AMOXICILLIN 05860847022 Active Andrei Nichols MD Active SEROQUEL 200 MG ORAL TABS Take 1 tablet at hs QUETIAPINE FUMARATE 31556199829 Active Andrei Nichols MD Active PROMETHAZINE HCL 25 MG TABS 1 four times a day as needed for vomiting PROMETHAZINE HCL 71434847405 Active Andrei Nichols MD Active FETZIMA 40 MG ORAL [id number] LEVOMILNACIPRAN HCL 55587019660 Active Alondra Denton MD Active PROAIR HFA 108 (90 BASE) MCG/ACT AERS 2 puffs four times a day as needed 2011 ALBUTEROL SULFATE 47230443240 No Longer Active Alondra Denton MD Active IBUPROFEN 600 MG TAB 1 tablet three times a day as needed IBUPROFEN 71206755649 No Longer Active Alondra Denton MD Active LATUDA 20 MG TABS 1 tab at at night with meal LURASIDONE HCL 36815959080 No Longer Active Alondra Denton MD Active CYCLOBENZAPRINE HCL 10 MG TABS 1/2 to 1 tablet every 4 hours CYCLOBENZAPRINE HCL 69913630854 No Longer Active Alondra Denton MD Active CYCLOBENZAPRINE HCL 10 MG TABS 1/2 to 1 tablet by mouth three times daily as needed for muscle spasm/pain CYCLOBENZAPRINE HCL 16533812049 No Longer Active Alondra Denton MD Active SUPRAX 400 MG CAPS Take one tablet twice daily for 7 days CEFIXIME 38142411486 No Longer Active Shikha Yokum HAND II CUTTER Active TESSALON PERLES 100 MG CAP 1 tablet by mouth 3 times daily 01/20 BENZONATATE 38301930987 No Longer Active Shikha Yokum HAND II CUTTER Active HYDROXYZINE HCL 10 MG TABS 1 to 2 three times a day as needed for itching HYDROXYZINE HCL 38448388081 No Longer Active Shikha Yokum HAND II CUTTER Active CYCLOBENZAPRINE HCL 10 MG TABS 1 three times a day as needed for back spasm CYCLOBENZAPRINE HCL 73316121049 No Longer Active Shikha Yokum HAND II CUTTER Active SEROQUEL 200 MG TABS 1 tablet at bedtime. QUETIAPINE FUMARATE 75022162662 No Longer Active Shikha Yokum HAND II CUTTER Active BACTRIM DS 800-160 MG TAB 1 tab by mouth twice daily TRIMETHOPRIM-SULFAMETHOXAZOLE 47204637544 No Longer Active Shikha Yokum HAND II CUTTER Active STROMECTOL 3 MG TABS 5 tablets by mouth one time on an empty stomach, may repeat in 2 weeks if needed IVERMECTIN 26608502925 No Longer Active Shikha Randolph APRN Active PERMETHRIN 5 % CREA apply neck to toes tonight and then rinse off in morning. repeat at 7 days PERMETHRIN 03404418997 No Longer Active Andrei Nichols MD Active MEDROL (NISA) 4 MG TABS 6 tabs on day 1, 5 tabs on day 2, 4 tabs on day 3, 3 tabs on day 4, 2 tabs on day 5, 1 tab on day 6 METHYLPREDNISOLONE 23768238149 No Longer Active Prisca Lockwood MD PhD Active AZITHROMYCIN 250 MG TABS 2 po qd x 1 day, then 1 po qd x 4 days AZITHROMYCIN 56426304063 No Longer Active Prisca Lockwood MD PhD Active CELEXA 20 MG TABS Take 1.5 tablets daily CITALOPRAM HYDROBROMIDE 04173292373 No Longer Active Prisca Lockwood MD PhD Active LOMOTIL 2.5-0.025 MG TAB 1 to 2 four times a day as needed for diarrhea 01/21 DIPHENOXYLATE-ATROPINE 50011687380 No Longer Active Prisca Lockwood MD PhD Active TAMIFLU 75 MG CAPS 1 bid x 5 days OSELTAMIVIR PHOSPHATE 91080093758 No Longer Active Rosalie Boyd APRN Active ZITHROMAX 250 MG TAB 2 po today, then 1 po q days 2-5 AZITHROMYCIN 17356590314 No Longer Active Rosalie Boyd APRN Active STROMECTOL 3 MG TABS 6 pills by mouth x 1; repeat in 10 days 2012 IVERMECTIN 59719231780 No Longer Active Rosalie Boyd APRN Active TYLENOL WITH CODEINE #3 300-30 MG TABS ONE TABLET FOUR TIMES A DAY NEEDED for pain or cough ACETAMINOPHEN-CODEINE 26910595401 No Longer Active Rosalie Boyd APRN Active GUAIFENESIN-CODEINE 100-10 MG/5ML SYRP 1 tsp PO q6h PRN cough GUAIFENESIN-CODEINE 31374397839 No Longer Active Rosalie Boyd APRN Active KEFLEX 500 MG CAP 1 po qid CEPHALEXIN 27334971770 No Longer Active Rosalie Boyd APRN Active GUAIFENESIN-CODEINE 100-10 MG/5ML SYRP 1 tsp PO q6h PRN cough GUAIFENESIN-CODEINE 14744846331 No Longer Active Rosalie Boyd APRN Active PROMETHAZINE HCL 25 MG TABS 1 four times a day as needed for nausea/vomiting PROMETHAZINE HCL 74330669601 No Longer Active Rosalie Boyd APRN Active LAMISIL AT 1 % CREA apply bid to rash TERBINAFINE HCL 66070159491 No Longer Active Andrei Nichols MD Active AMOXICILLIN 400 MG/5ML SUSR 6ml three times a day for 10 days AMOXICILLIN 58825998980 No Longer Active Andrei Nichols MD Active PROMETHAZINE HCL 25 MG TABS take 1 po Q 8 hours prn nausea and vomiting 12/11 PROMETHAZINE HCL 32682494773 No Longer Active Andrei Nichols MD Active BACTROBAN 2 % OINTMENT Apply bid to affected area MUPIROCIN 93149000858 No Longer Active Andrei Nichols MD Active GUAIFENESIN-CODEINE 100-10 MG/5ML SYRP 1 tsp PO q6h PRN cough GUAIFENESIN-CODEINE 21983066776 No Longer Active Andrei Nichols MD Active BACTRIM DS 800-160 MG TABS 1 po BID x 10 days SULFAMETHOXAZOLE-TRIMETHOPRIM 63066950567 No Longer Active Rosalie Boyd APRN Active GUAIFENESIN-CODEINE 100-10 MG/5ML SYRP 1-2 tsp PO q6h PRN cough GUAIFENESIN-CODEINE 75542782974 No Longer Active Giovany URBINA Active PREDNISONE 20 MG TABS 1 tablet by mouth twice daily for 2 days, then 1 daily for 2 days PREDNISONE 99512034199 No Longer Active Giovany URBINA Active HYDROCODONE-ACETAMINOPHEN 5-325 MG TABS 1/2 to 1 po q 4 hours prn pain 11/13 HYDROCODONE-ACETAMINOPHEN 34406124683 No Longer Active Rosalie Boyd HAND II CUTTER Active PENICILLIN V POTASSIUM 500 MG TABS 1 TID PENICILLIN V POTASSIUM 24702825645 No Longer Active Andrei Nichols MD Active SEROQUEL 50 MG TABS 1 tablet at HS QUETIAPINE FUMARATE 60427942133 No Longer Active Andrei Nichols MD Active SEROQUEL 100 MG TABS 1 tablet at HS QUETIAPINE FUMARATE 86659475141 No Longer Active Andrei Nichols MD Active TRIAMCINOLONE ACETONIDE 0.1 % CREA apply three times daily prn rash TRIAMCINOLONE ACETONIDE 38262363785 No Longer Active Andrei Nichols MD Active AMOXICILLIN 500 MG TABS take one tab po tid x 10 days AMOXICILLIN 68450135826 No Longer Active Andrei Nichols MD Active CELEXA 20 MG TABS 1and 1/2 tablets by mouth daily CITALOPRAM HYDROBROMIDE 62222664060 No Longer Active Ary Kirk PA Active FLEXERIL 10 MG TAB 1/2 to one tablet every 12 hours as needed CYCLOBENZAPRINE HCL 44766951262 No Longer Active Ary Kirk PA Active CLONAZEPAM 1 MG TABS take at bedtime CLONAZEPAM 56875820597 No Longer Active Ary Pool PA Active PERMETHRIN 5 % CREA applyhead to toes tonight and then rinse off in 18 hours. repeat at 7 days if needed. PERMETHRIN 39452043346 No Longer Active Ary Kirk PA Active AMOXICILLIN 500 MG CAPS 2 po BID x 10 days AMOXICILLIN 53822222549 No Longer Active Andrei Nichols MD Active TYLENOL WITH CODEINE #3 300-30 MG TABS 1 to 2 four times a day as needed for pain ACETAMINOPHEN-CODEINE 45627312609 No Longer Active Reta Hampton Active PREDNISONE 20 MG TAB 2 tabs daily for 5 days, then 1 daily for 5 days PREDNISONE 51224907415 No Longer Active Reta Hampton Active LOMOTIL 2.5-0.025 MG TAB 1 to 2 four times a day as needed for diarrhea 05/28 DIPHENOXYLATE-ATROPINE 26074200649 No Longer Active Reta Hampton Active ALPRAZOLAM 1 MG TABS 1 tab tid ALPRAZOLAM 34554387765 No Longer Active Reta Hampton Active AMOXICILLIN 500 MG CAPS 2 po BID x 10 days AMOXICILLIN 03459752798 No Longer Active Andrei Nichols MD Active AMOXICILLIN 500 MG TABS Take one tab by mouth 3 times daily, morning, afternoon and evening for 7 days. AMOXICILLIN 26515011914 No Longer Active Virginia Alejandra RN Active VICODIN 5-300 MG TABS one tab PO Q 6 hours PRN pain HYDROCODONE-ACETAMINOPHEN 93736599812 No Longer Active Virginia Alejandra RN Active FLAGYL 500 MG TABS four tabs PO one time METRONIDAZOLE 32677539433 No Longer Active Alondra Denton MD Active MELOXICAM 15 MG TABS 1 po q day for pain with food MELOXICAM 96361857937 No Longer Active Alondra Denton MD Active AMOXICILLIN 400 MG/5ML SUSR 5ml po TID x 10 days AMOXICILLIN 98185951754 No Longer Active Jani Marrero MD Active NIX CREME RINSE 1 % LIQD apply as directed tonight, repeat at 7 days PERMETHRIN 11889879385 No Longer Active Corky Mckeon DO Active QVAR 40 MCG/ACT AERS one puff three times a day as needed BECLOMETHASONE DIPROPIONATE 27227675343 No Longer Active Andrei Nichols MD Active METHOCARBAMOL 500 MG TABS 1 to 2 qid prn back spasm METHOCARBAMOL 42024579936 No Longer Active Andrei Nichols MD Active VISTARIL 25 MG CAPS 1-2 tablets three times a day as needed HYDROXYZINE PAMOATE 19238712175 No Longer Active Andrei Nichols MD Active SEROQUEL 100 MG TABS 1/2 TABLET at hs QUETIAPINE FUMARATE 59363931601 No Longer Active Aicha Rizzo RN Active BACTRIM DS 800-160 MG TAB 1 tab by mouth twice daily TRIMETHOPRIM-SULFAMETHOXAZOLE 87672490323 No Longer Active Prisca Lockwood MD PhD Active CYCLOBENZAPRINE HCL 10 MG TABS TAKE 1/2 - 1 TAB EVERY 12 HOURS NEEDED 2010 CYCLOBENZAPRINE HCL 04041712475 No Longer Active Andrei Nichols MD Active CYCLOBENZAPRINE HCL 10 MG TABS TAKE 1/2 - 1 TAB EVERY 12 HOURS NEEDED 2010 CYCLOBENZAPRINE HCL 10 MG TABS 399180 CYCLOBENZAPRINE HCL Inactive SEROQUEL 100 MG TABS 1/2 TABLET at hs SEROQUEL 100 MG TABS 068717 QUETIAPINE FUMARATE Inactive VISTARIL 25 MG CAPS 1-2 tablets three times a day as needed VISTARIL 25 MG CAPS 654581 HYDROXYZINE PAMOATE Inactive METHOCARBAMOL 500 MG TABS 1 to 2 qid prn back spasm METHOCARBAMOL 500 MG TABS 056495 METHOCARBAMOL Inactive QVAR 40 MCG/ACT AERS one puff three times a day as needed QVAR 40 MCG/ACT AERS BECLOMETHASONE DIPROPIONATE Inactive NIX CREME RINSE 1 % LIQD apply as directed tonight, repeat at 7 days NIX CREME RINSE 1 % LIQD PERMETHRIN Inactive MELOXICAM 15 MG TABS 1 po q day for pain with food MELOXICAM 15 MG TABS 033275 MELOXICAM Inactive ALPRAZOLAM 1 MG TABS 1 tab tid ALPRAZOLAM 1 MG TABS 423699 ALPRAZOLAM Inactive LOMOTIL 2.5-0.025 MG TAB 1 to 2 four times a day as needed for diarrhea 05/28 LOMOTIL 2.5-0.025 MG TAB 9381816 DIPHENOXYLATE-ATROPINE Inactive PREDNISONE 20 MG TAB 2 tabs daily for 5 days, then 1 daily for 5 days PREDNISONE 20 MG TAB 567698 PREDNISONE Inactive TYLENOL WITH CODEINE #3 300-30 MG TABS 1 to 2 four times a day as needed for pain TYLENOL WITH CODEINE #3 300-30 MG TABS 530371 ACETAMINOPHEN-CODEINE Inactive PERMETHRIN 5 % CREA applyhead to toes tonight and then rinse off in 18 hours. repeat at 7 days if needed. PERMETHRIN 5 % CREA 133395 PERMETHRIN Inactive CLONAZEPAM 1 MG TABS take at bedtime CLONAZEPAM 1 MG TABS 485291 CLONAZEPAM Inactive FLEXERIL 10 MG TAB 1/2 to one tablet every 12 hours as needed FLEXERIL 10 MG TAB CYCLOBENZAPRINE HCL Inactive CELEXA 20 MG TABS 1and 1/2 tablets by mouth daily CELEXA 20 MG TABS 206501 CITALOPRAM HYDROBROMIDE Inactive AMOXICILLIN 500 MG TABS take one tab po tid x 10 days AMOXICILLIN 500 MG TABS 553677 AMOXICILLIN Inactive TRIAMCINOLONE ACETONIDE 0.1 % CREA apply three times daily prn rash TRIAMCINOLONE ACETONIDE 0.1 % CREA 6138364 TRIAMCINOLONE ACETONIDE Inactive SEROQUEL 100 MG TABS 1 tablet at HS SEROQUEL 100 MG TABS 601971 QUETIAPINE FUMARATE Inactive SEROQUEL 50 MG TABS 1 tablet at HS SEROQUEL 50 MG TABS 380448 QUETIAPINE FUMARATE Inactive HYDROCODONE-ACETAMINOPHEN 5-325 MG TABS 1/2 to 1 po q 4 hours prn pain 11/13 HYDROCODONE-ACETAMINOPHEN 5-325 MG TABS 893659 HYDROCODONE- ACETAMINOPHEN Inactive PREDNISONE 20 MG TABS 1 tablet by mouth twice daily for 2 days, then 1 daily for 2 days PREDNISONE 20 MG TABS 462523 PREDNISONE Inactive GUAIFENESIN-CODEINE 100-10 MG/5ML SYRP 1-2 tsp PO q6h PRN cough GUAIFENESIN-CODEINE 100-10 MG/5ML SYRP 188280 GUAIFENESIN-CODEINE Inactive GUAIFENESIN-CODEINE 100-10 MG/5ML SYRP 1 tsp PO q6h PRN cough GUAIFENESIN-CODEINE 100-10 MG/5ML SYRP 443297 GUAIFENESIN-CODEINE Inactive BACTROBAN 2 % OINTMENT Apply bid to affected area BACTROBAN 2 % OINTMENT 127643 MUPIROCIN Inactive PROMETHAZINE HCL 25 MG TABS take 1 po Q 8 hours prn nausea and vomiting 12/11 PROMETHAZINE HCL 25 MG TABS 443273 PROMETHAZINE HCL Inactive AMOXICILLIN 400 MG/5ML SUSR 6ml three times a day for 10 days AMOXICILLIN 400 MG/5ML SUSR 564637 AMOXICILLIN Inactive LAMISIL AT 1 % CREA apply bid to rash LAMISIL AT 1 % CREA 554019 TERBINAFINE HCL Inactive PROMETHAZINE HCL 25 MG TABS 1 four times a day as needed for nausea/vomiting PROMETHAZINE HCL 25 MG TABS 006034 PROMETHAZINE HCL Inactive GUAIFENESIN-CODEINE 100-10 MG/5ML SYRP 1 tsp PO q6h PRN cough GUAIFENESIN-CODEINE 100-10 MG/5ML SYRP 431260 GUAIFENESIN-CODEINE Inactive KEFLEX 500 MG CAP 1 po qid KEFLEX 500 MG CAP 675123 CEPHALEXIN Inactive GUAIFENESIN-CODEINE 100-10 MG/5ML SYRP 1 tsp PO q6h PRN cough GUAIFENESIN-CODEINE 100-10 MG/5ML SYRP 680808 GUAIFENESIN-CODEINE Inactive TYLENOL WITH CODEINE #3 300-30 MG TABS ONE TABLET FOUR TIMES A DAY NEEDED for pain or cough TYLENOL WITH CODEINE #3 300-30 MG TABS 763351 ACETAMINOPHEN-CODEINE Inactive STROMECTOL 3 MG TABS 6 pills by mouth x 1; repeat in 10 days 2012 STROMECTOL 3 MG TABS 389577 IVERMECTIN Inactive LOMOTIL 2.5-0.025 MG TAB 1 to 2 four times a day as needed for diarrhea 01/21 LOMOTIL 2.5-0.025 MG TAB 4224532 DIPHENOXYLATE-ATROPINE Inactive CELEXA 20 MG TABS Take 1.5 tablets daily CELEXA 20 MG TABS 310184 CITALOPRAM HYDROBROMIDE Inactive PERMETHRIN 5 % CREA apply neck to toes tonight and then rinse off in morning. repeat at 7 days PERMETHRIN 5 % CREA 223109 PERMETHRIN Inactive STROMECTOL 3 MG TABS 5 tablets by mouth one time on an empty stomach, may repeat in 2 weeks if needed STROMECTOL 3 MG TABS 103125 IVERMECTIN Inactive BACTRIM DS 800-160 MG TAB 1 tab by mouth twice daily BACTRIM DS 800-160 MG TAB 669020 TRIMETHOPRIM-SULFAMETHOXAZOLE Inactive SEROQUEL 200 MG TABS 1 tablet at bedtime. SEROQUEL 200 MG TABS 043329 QUETIAPINE FUMARATE Inactive CYCLOBENZAPRINE HCL 10 MG TABS 1 three times a day as needed for back spasm CYCLOBENZAPRINE HCL 10 MG TABS 969124 CYCLOBENZAPRINE HCL Inactive HYDROXYZINE HCL 10 MG TABS 1 to 2 three times a day as needed for itching HYDROXYZINE HCL 10 MG TABS 851920 HYDROXYZINE HCL Inactive TESSALON PERLES 100 MG CAP 1 tablet by mouth 3 times daily 01/20 TESSALON PERLES 100 MG CAP 567429 BENZONATATE Inactive CYCLOBENZAPRINE HCL 10 MG TABS 1/2 to 1 tablet by mouth three times daily as needed for muscle spasm/pain CYCLOBENZAPRINE HCL 10 MG TABS 171118 CYCLOBENZAPRINE HCL Inactive CYCLOBENZAPRINE HCL 10 MG TABS 1/2 to 1 tablet every 4 hours CYCLOBENZAPRINE HCL 10 MG TABS 356171 CYCLOBENZAPRINE HCL Inactive LATUDA 20 MG TABS 1 tab at at night with meal LATUDA 20 MG TABS LURASIDONE HCL Inactive IBUPROFEN 600 MG TAB 1 tablet three times a day as needed IBUPROFEN 600 MG TAB 640090 IBUPROFEN Inactive PROAIR HFA 108 (90 BASE) MCG/ACT AERS 2 puffs four times a day as needed 2011 PROAIR HFA 108 (90 BASE) MCG/ACT AERS ALBUTEROL SULFATE Inactive BACTRIM DS 800-160 MG TAB 1 tab by mouth twice daily BACTRIM DS 800-160 MG TAB 552525 TRIMETHOPRIM-SULFAMETHOXAZOLE Inactive AMOXICILLIN 400 MG/5ML SUSR 5ml po TID x 10 days AMOXICILLIN 400 MG/5ML SUSR 086926 AMOXICILLIN Inactive FLAGYL 500 MG TABS four tabs PO one time FLAGYL 500 MG TABS 046624 METRONIDAZOLE Inactive AMOXICILLIN 500 MG TABS Take one tab by mouth 3 times daily, morning, afternoon and evening for 7 days. AMOXICILLIN 500 MG TABS 415262 AMOXICILLIN Inactive AMOXICILLIN 500 MG CAPS 2 po BID x 10 days AMOXICILLIN 500 MG CAPS 138712 AMOXICILLIN Inactive AMOXICILLIN 500 MG CAPS 2 po BID x 10 days AMOXICILLIN 500 MG CAPS 897150 AMOXICILLIN Inactive PENICILLIN V POTASSIUM 500 MG TABS 1 TID PENICILLIN V POTASSIUM 500 MG TABS 774188 PENICILLIN V POTASSIUM Inactive BACTRIM DS 800-160 MG TABS 1 po BID x 10 days BACTRIM DS 800-160 MG TABS 279056 SULFAMETHOXAZOLE-TRIMETHOPRIM Inactive ZITHROMAX 250 MG TAB 2 po today, then 1 po q days 2-5 ZITHROMAX 250 MG TAB 5864190 AZITHROMYCIN Inactive TAMIFLU 75 MG CAPS 1 bid x 5 days TAMIFLU 75 MG CAPS OSELTAMIVIR PHOSPHATE Inactive AZITHROMYCIN 250 MG TABS 2 po qd x 1 day, then 1 po qd x 4 days AZITHROMYCIN 250 MG TABS 6028525 AZITHROMYCIN Inactive MEDROL (NISA) 4 MG TABS 6 tabs on day 1, 5 tabs on day 2, 4 tabs on day 3, 3 tabs on day 4, 2 tabs on day 5, 1 tab on day 6 MEDROL ( NISA) 4 MG TABS METHYLPREDNISOLONE Inactive SUPRAX 400 MG CAPS Take one tablet twice daily for 7 days SUPRAX 400 MG CAPS CEFIXIME Inactive Immunizations Vaccine Administration Date Value Standard Description Seasonal influenza vaccine, injectable, containing preservative, for > 3 years old (Afluria, FluLaval, Fluzone, Fluvirin, Fluarix, Agriflu(>=18 yo)) Fluzone (>3 yrs.) [[id number]] Influenza, seasonal, injectable pneumococcal immunization administered Pneumovax 23 [CVX33] pneumococcal polysaccharide vaccine, 23 valent Seasonal influenza vaccine, injectable, containing preservative, for > 3 years old (Afluria, FluLaval, Fluzone, Fluvirin, Fluarix, Agriflu(>=18 yo)) Fluzone (>3 yrs.) [[id number]] Influenza, seasonal, injectable Seasonal influenza vaccine, injectable, containing preservative, for > 3 years old (Afluria, FluLaval, Fluzone, Fluvirin, Fluarix, Agriflu(>=18 yo)) Fluzone (>3 yrs.) [[id number]] Influenza, seasonal, injectable hepatitis B vaccine #1 [...] Range Description blood pressure, diastolic - 8462-4 69 mm[Hg] BP jorge blood pressure, systolic - 8480-6 111 mm[Hg] BP sys pulse rate E&M - 8867-4 93 /min Heart rate temperature E&M 97.9 [degF] Body temperature weight E&M - 3141-9 165 [lb_av] Weight Measured blood pressure, diastolic - 8462-4 72 mm[Hg] BP jorge blood pressure, systolic - 8480-6 114 mm[Hg] BP sys pulse rate E&M - 8867-4 72 /min Heart rate temperature E&M 97.2 [degF] Body temperature weight E&M - 3141-9 176 [lb_av] Weight Measured blood pressure, diastolic - 8462-4 78 mm[Hg] BP jorge blood pressure, systolic - 8480-6 114 mm[Hg] BP sys pulse rate E&M - 8867-4 98 /min Heart rate temperature E&M 97.8 [degF] Body temperature weight E&M - 3141-9 182 [lb_av] Weight Measured Encounters Code Encounter Date Provider Facility CPT-22681 Level 3 Est. Patient 12:02:27 [employer]CH[employer] Andrei Nichols MD [facility] CPT-93078 Level 3 Est. Patient 12:47:17 [employer]CH[employer] Andrei Nichols MD [facility] CPT-94748 Level 3 Est. Patient 14:51:20 [employer]CH[employer] Shikha Randolph [facility] CPT-02819 Level 3 Est. Patient 10:42:38 CDT Shikha Randolph [facility] CPT-03781 Level 3 Est. Patient 18:20:39 CDT Prisca Lockwood MD PhD [facility] CPT-18651 Level 3 Est. Patient 16:42:47 [employer] Rosalie Boyd [facility] CPT-81851 Level 3 Est. Patient 14:34:36 [employer]CH[employer] Rosalie Boyd [facility] CPT-07587 Level 4 Est. Patient 10:23:07 [employer]CH[employer] Andrei Nichols MD [facility] CPT-97821 Level 3 Est. Patient 16:47:31 [employer]CH[employer] Andrei Nichols MD [facility] CPT-19727 Level 3 Est. Patient 11:59:14 CDT Rosalie Boyd [facility] CPT-70490 Level 3 Est. Patient 15:30:34 CDT Giovany URBINA [facility] CPT-16471 Level 3 Est. Patient 11:03:03 CDT Rosalie Boyd [facility] CPT-56456 Level 3 Est. Patient 11:08:07 CDT Rosalie Boyd [facility] CPT-92088 Level 3 Est. Patient 14:07:32 CDT Andrei Nichols MD [facility] CPT-78253 Level 3 Est. Patient 17:08:28 CDT Andrei Nichols MD [facility] CPT-96348 Level 3 Est. Patient 13:10:13 CDT Jani Marrero MD [facility] CPT-53942 Level 3 Est. Patient 11:27:12 CDT Jani Marrero MD [facility] CPT-02226 Level 3 Est. Patient 13:44:42 CDT Andrei Nichols MD [facility] CPT-20547 Level 3 Est. Patient 12:34:57 [employer] Andrei Nichols MD [facility] CPT-20448 Level 3 Est. Patient 15:30:06 CDT Jani Marrero MD [facility] CPT-62870 Level 3 Est. Patient 21:59:00 CDT Corky Mckeon DO [facility] CPT-90711 Level 3 Est. Patient 17:12:49 CDT Andrei Nichols MD [facility] CPT-62114 Level 4 Est. Patient 12:27:45 [employer] Andrei Nichols MD [facility] CPT-29016 Level 3 Est. Patient 12:15:34 [employer]CH[employer] Andrei Nichols MD [facility] Procedures Code Procedure Name Date Entry Date Standard Description CPT-OV Office Visit 11:36:40 CDT CPT-80775 Administration 2+ single or combination vaccines inc oral 07:50:30 CDT CPT-27153 Administration single or combination vaccine inc oral 07 :50:30 CDT CPT-77844 Pneumovax 07:50:30 CDT CPT-40025 Influenza split virus > age 3 07:50:30 CDT CPT-OV Office Visit 11:49:10 [employer] CPT-07294 Nexplanon Removal with Reinsertion 14:02:06 [employer]CH[employer] CPT-J7307 Nexplanon (Implant) 14:02:06 [employer]CH[employer] CPT-OV Office Visit 14:02:06 [employer]CH[employer]IC CPT-OV Office Visit 11:58:04 [employer]CH[employer] CPT-22582 Administration single or combination vaccine inc oral 11 :31:07 CDT CPT-15803 Influenza split virus > age 3 11:31:07 CDT [id number] Administration single or combination vaccine inc oral 10 :34:13 CDT [id number] Influenza split virus > age 3 10:34:13 CDT
--- OUTSIDE RECORDS SUMMARY | 2017-01-02 18:24 | XMS REPORT ---
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
--- OUTSIDE RECORDS SUMMARY | 2017-01-02 18:26 | XMS REPORT | Clinical Summary ---
Author Author Admin, QIE Organization [facility] Address Unknown Phone Unavailable Allergies, Adverse Reactions, [...] Sinusitis, frontal, acute 461.1 Resolved Shikha Yokum [employer] Acute frontal sinusitis Pharyngitis 462 Resolved Shikha Yokum [employer] Acute pharyngitis Scabies 133.0 Resolved Shikha Yokum [employer] Scabies Folliculitis 704.8 Resolved Shikha Yokum [employer] Other specified diseases of hair and hair [...] Pool PA ECZEMA ICD-692.9 Inactive Shikhaciro Lockeum [employer] OTITIS MEDIA ICD-382.9 Inactive Ary Pool PA 09/16 PHARYNGITIS ICD-462 Inactive Andrei Nichols MD UNSPECIFIED DISORDER TEETH&SUPPORTING STRUCTURES ICD-525.9 12/29 Inactive Shikha Randolph [employer] PHARYNGITIS-ACUTE ICD-462 Inactive Rosalie Boyd [employer] DIARRHEA ICD-787.91 Inactive Andrei Nichols MD SHOULDER PAIN ICD-719.41 Inactive Shikha Randolph [employer] NAUSEA AND VOMITING ICD-787.01 Inactive Andrei Nichols [...] PhD Dental caries ICD-521.00 Inactive Shikha Yokum [employer] Tooth pain ICD-525.9 Inactive Prisca Lockwood MD PhD Head lice ICD-132.0 Inactive Prisca Lockwood MD PhD Upper respiratory infection ICD-465.9 Inactive Prisca Lockwood MD PhD Sinusitis, frontal, acute ICD-461.1 Inactive Shikha Yokum [employer] Pharyngitis ICD-462 Inactive Shikha Yokum [employer] 2013 Scabies ICD-133.0 Inactive Shikha Yokum [employer] 12/29 Folliculitis ICD-704.8 Inactive Shikha Yokum [employer] Cough ICD-786.2 Inactive Andrei Nichols MD SINUSITIS, ACUTE ICD-461.9 Inactive Jani Marrero MD Medication List Medication Instructions Start Date Stop Date Generic Name NDC Status Provider Patient Instruction ZIAC 2.5-6.25 MG TAB 1 tablet daily for high blood pressure BISOPROLOL-HCTZ [id number] Active Corky Mckeon DO Active MELOXICAM 15 MG TABS 1 daily for knee pain MELOXICAM 54626445586 Active Renetta Ryan APRN Active CYCLOBENZAPRINE HCL 10 MG TABS 1 three times a day as needed for muscle spasm CYCLOBENZAPRINE HCL 79828458707 Active Renetta Ryan APRN Active BUSPIRONE HCL 10 MG ORAL TABS 2 TABS PO BID BUSPIRONE HCL 39692065613 Active Corky Mckeon DO Active AMITRIPTYLINE HCL 75 MG ORAL TABS 1 TAB Q HS AMITRIPTYLINE HCL 31461076355 Active Renetta Ryan APRN Active PROAIR HFA 108 (90 BASE) MCG/ACT AERS 2 puffs four times a day as needed 2015 ALBUTEROL SULFATE 42609029271 No Longer Active Renetta Ryan APRN Active KLONOPIN 1 MG TABS 1 tablet TID CLONAZEPAM 95675118478 No Longer Active Renetta Ryan APRN Active ZITHROMAX 250 MG TAB 2 po today, then 1 po q days 2-5 AZITHROMYCIN 54497299342 No Longer Active Jani Marrero MD Active IBUPROFEN 800 MG TABS 1 tab PO TID IBUPROFEN 46359743237 Active Jani Marrero MD Active WELLBUTRIN SR 100 MG ORAL [id number] 1 TAB PO DAILY BUPROPION HCL 73507580792 Active Jani Marrero MD Active AMITRIPTYLINE HCL 50 MG TAB 1 po q hs for sleep AMITRIPTYLINE HCL 84744568303 No Longer Active Jani Marrero MD Active PROMETHAZINE HCL 25 MG TABS 1 four times a day as needed for vomiting PROMETHAZINE HCL 73841716617 No Longer Active Jani Marrero MD Active AMOXICILLIN 500 MG TABS 2 tabs twice a day for 10 days AMOXICILLIN 26193492246 No Longer Active Jani Marrero MD Active SEROQUEL 200 MG ORAL TABS Take 1 tablet at hs QUETIAPINE FUMARATE 03394357742 No Longer Active Jani Marrero MD Active FETZIMA 40 MG ORAL [id number] LEVOMILNACIPRAN HCL 37548180213 No Longer Active Jani Marrero MD Active PROAIR HFA 108 (90 BASE) MCG/ACT AERS 2 puffs four times a day as needed 2011 ALBUTEROL SULFATE 24599337630 No Longer Active Alondra Denton MD Active IBUPROFEN 600 MG TAB 1 tablet three times a day as needed IBUPROFEN 18449889811 No Longer Active Alondra Denton MD Active LATUDA 20 MG TABS 1 tab at at night with meal LURASIDONE HCL 77334013688 No Longer Active Alondra Denton MD Active CYCLOBENZAPRINE HCL 10 MG TABS 1/2 to 1 tablet every 4 hours CYCLOBENZAPRINE HCL 46767066002 No Longer Active Alondra Denton MD Active CYCLOBENZAPRINE HCL 10 MG TABS 1/2 to 1 tablet by mouth three times daily as needed for muscle spasm/pain CYCLOBENZAPRINE HCL 18978577024 No Longer Active Alondra Denton MD Active SUPRAX 400 MG CAPS Take one tablet twice daily for 7 days CEFIXIME 43113226057 No Longer Active Shikha Yokum [employer] Active TESSALON PERLES 100 MG CAP 1 tablet by mouth 3 times daily 01/20 BENZONATATE 34225237486 No Longer Active Shikha Yokum [employer] Active HYDROXYZINE HCL 10 MG TABS 1 to 2 three times a day as needed for itching HYDROXYZINE HCL 50228667962 No Longer Active Shikha Yokum [employer]ER Active CYCLOBENZAPRINE HCL 10 MG TABS 1 three times a day as needed for back spasm CYCLOBENZAPRINE HCL 89018167626 No Longer Active Shikha Yokum [employer] Active SEROQUEL 200 MG TABS 1 tablet at bedtime. QUETIAPINE FUMARATE 27545243605 No Longer Active Shikha Yokum [employer] Active BACTRIM DS 800-160 MG TAB 1 tab by mouth twice daily TRIMETHOPRIM-SULFAMETHOXAZOLE 83341210952 No Longer Active Shikha Yokjose SORIANO Active STROMECTOL 3 MG TABS 5 tablets by mouth one time on an empty stomach, may repeat in 2 weeks if needed IVERMECTIN 31643194411 No Longer Active Shikha Yokum [employer] Active PERMETHRIN 5 % CREA apply neck to toes tonight and then rinse off in morning. repeat at 7 days PERMETHRIN 14660316827 No Longer Active Andrei Nichols MD Active MEDROL (NISA) 4 MG TABS 6 tabs on day 1, 5 tabs on day 2, 4 tabs on day 3, 3 tabs on day 4, 2 tabs on day 5, 1 tab on day 6 METHYLPREDNISOLONE 86355488083 No Longer Active Prisca Lockwood MD PhD Active AZITHROMYCIN 250 MG TABS 2 po qd x 1 day, then 1 po qd x 4 days AZITHROMYCIN 19878601534 No Longer Active Prisca Lockwood MD PhD Active CELEXA 20 MG TABS Take 1.5 tablets daily CITALOPRAM HYDROBROMIDE 98535448944 No Longer Active Prisca Lockwood MD PhD Active LOMOTIL 2.5-0.025 MG TAB 1 to 2 four times a day as needed for diarrhea 01/21 DIPHENOXYLATE-ATROPINE 89838517826 No Longer Active Prisca Lockwood MD PhD Active TAMIFLU 75 MG CAPS 1 bid x 5 days OSELTAMIVIR PHOSPHATE 66023062457 No Longer Active Rosalie Boyd APRN Active ZITHROMAX 250 MG TAB 2 po today, then 1 po q days 2-5 AZITHROMYCIN 32583669586 No Longer Active Rosalie Boyd APRN Active STROMECTOL 3 MG TABS 6 pills by mouth x 1; repeat in 10 days 2012 IVERMECTIN 79104971563 No Longer Active Rosalie Boyd APRN Active TYLENOL WITH CODEINE #3 300-30 MG TABS ONE TABLET FOUR TIMES A DAY NEEDED for pain or cough ACETAMINOPHEN-CODEINE 69541343573 No Longer Active Rosalie Boyd APRN Active GUAIFENESIN-CODEINE 100-10 MG/5ML SYRP 1 tsp PO q6h PRN cough GUAIFENESIN-CODEINE 45646103165 No Longer Active Rosalie Boyd APRN Active KEFLEX 500 MG CAP 1 po qid CEPHALEXIN 46778561689 No Longer Active Rosalie Boyd APRN Active GUAIFENESIN-CODEINE 100-10 MG/5ML SYRP 1 tsp PO q6h PRN cough GUAIFENESIN-CODEINE 68979311252 No Longer Active Rosalie Boyd APRN Active PROMETHAZINE HCL 25 MG TABS 1 four times a day as needed for nausea/vomiting PROMETHAZINE HCL 85810837046 No Longer Active Rosalie Boyd APRN Active LAMISIL AT 1 % CREA apply bid to rash TERBINAFINE HCL 11841946824 No Longer Active Andrei Nichols MD Active AMOXICILLIN 400 MG/5ML SUSR 6ml three times a day for 10 days AMOXICILLIN 54785014131 No Longer Active Andrei Nichols MD Active PROMETHAZINE HCL 25 MG TABS take 1 po Q 8 hours prn nausea and vomiting 12/11 PROMETHAZINE HCL 18211876708 No Longer Active Andrei Nichols MD Active BACTROBAN 2 % OINTMENT Apply bid to affected area MUPIROCIN 57785521975 No Longer Active Andrei Nichols MD Active GUAIFENESIN-CODEINE 100-10 MG/5ML SYRP 1 tsp PO q6h PRN cough GUAIFENESIN-CODEINE 07650810154 No Longer Active Andrei Nichols MD Active BACTRIM DS 800-160 MG TABS 1 po BID x 10 days SULFAMETHOXAZOLE-TRIMETHOPRIM 50195271208 No Longer Active Rosalie Boyd APRN Active GUAIFENESIN-CODEINE 100-10 MG/5ML SYRP 1-2 tsp PO q6h PRN cough GUAIFENESIN-CODEINE 36385054783 No Longer Active Giovany URBINA Active PREDNISONE 20 MG TABS 1 tablet by mouth twice daily for 2 days, then 1 daily for 2 days PREDNISONE 19776527667 No Longer Active Giovany URBINA Active HYDROCODONE-ACETAMINOPHEN 5-325 MG TABS 1/2 to 1 po q 4 hours prn pain 11/13 HYDROCODONE-ACETAMINOPHEN 30833114547 No Longer Active Rosalie Boyd APRN Active PENICILLIN V POTASSIUM 500 MG TABS 1 TID PENICILLIN V POTASSIUM 52974375676 No Longer Active Andrei Nichols MD Active SEROQUEL 50 MG TABS 1 tablet at HS QUETIAPINE FUMARATE 76617724058 No Longer Active Andrei Nichols MD Active SEROQUEL 100 MG TABS 1 tablet at HS QUETIAPINE FUMARATE 02708271807 No Longer Active Andrei Nichols MD Active TRIAMCINOLONE ACETONIDE 0.1 % CREA apply three times daily prn rash TRIAMCINOLONE ACETONIDE 81085316586 No Longer Active Andrei Nichols MD Active AMOXICILLIN 500 MG TABS take one tab po tid x 10 days AMOXICILLIN 23211148388 No Longer Active Andrei Nichols MD Active CELEXA 20 MG TABS 1and 1/2 tablets by mouth daily CITALOPRAM HYDROBROMIDE 73741384465 No Longer Active Ary URBINA Active FLEXERIL 10 MG TAB 1/2 to one tablet every 12 hours as needed CYCLOBENZAPRINE HCL 15307480608 No Longer Active Ary URBINA Active CLONAZEPAM 1 MG TABS take at bedtime CLONAZEPAM 62968513466 No Longer Active Ary URBINA Active PERMETHRIN 5 % CREA applyhead to toes tonight and then rinse off in 18 hours. repeat at 7 days if needed. PERMETHRIN 41194649921 No Longer Active Ary URBINA Active AMOXICILLIN 500 MG CAPS 2 po BID x 10 days AMOXICILLIN 52423025874 No Longer Active Andrei Nichols MD Active TYLENOL WITH CODEINE #3 300-30 MG TABS 1 to 2 four times a day as needed for pain ACETAMINOPHEN-CODEINE 66502741413 No Longer Active Reta Acostaklin Active PREDNISONE 20 MG TAB 2 tabs daily for 5 days, then 1 daily for 5 days PREDNISONE 72278717224 No Longer Active Reta Memo Active LOMOTIL 2.5-0.025 MG TAB 1 to 2 four times a day as needed for diarrhea 05/28 DIPHENOXYLATE-ATROPINE 01277139611 No Longer Active Reta Memo Active ALPRAZOLAM 1 MG TABS 1 tab tid ALPRAZOLAM 20095031398 No Longer Active Reta Hampton Active AMOXICILLIN 500 MG CAPS 2 po BID x 10 days AMOXICILLIN 59559421629 No Longer Active Andrei Nichols MD Active AMOXICILLIN 500 MG TABS Take one tab by mouth 3 times daily, morning, afternoon and evening for 7 days. AMOXICILLIN 35507995879 No Longer Active Virginia Alejandra RN Active VICODIN 5-300 MG TABS one tab PO Q 6 hours PRN pain HYDROCODONE-ACETAMINOPHEN 91915588267 No Longer Active Virginia Alejandra RN Active FLAGYL 500 MG TABS four tabs PO one time METRONIDAZOLE 29141614822 No Longer Active Alondra Denton MD Active MELOXICAM 15 MG TABS 1 po q day for pain with food MELOXICAM 81518725992 No Longer Active Alondra Denton MD Active AMOXICILLIN 400 MG/5ML SUSR 5ml po TID x 10 days AMOXICILLIN 07859212410 No Longer Active Jani Marrero MD Active NIX CREME RINSE 1 % LIQD apply as directed tonbethany, repeat at 7 days PERMETHRIN 68238210415 No Longer Active Corky Mckeon DO Active QVAR 40 MCG/ACT AERS one puff three times a day as needed BECLOMETHASONE DIPROPIONATE 64814414664 No Longer Active Andrei Nichols MD Active METHOCARBAMOL 500 MG TABS 1 to 2 qid prn back spasm METHOCARBAMOL 43849747691 No Longer Active Andrei Nichols MD Active VISTARIL 25 MG CAPS 1-2 tablets three times a day as needed HYDROXYZINE PAMOATE 08042787719 No Longer Active Andrei Nichols MD Active SEROQUEL 100 MG TABS 1/2 TABLET at hs QUETIAPINE FUMARATE 00685230975 No Longer Active Aicha Rizzo RN Active BACTRIM DS 800-160 MG TAB 1 tab by mouth twice daily TRIMETHOPRIM-SULFAMETHOXAZOLE 57934295782 No Longer Active Prisca Lockwood MD PhD Active CYCLOBENZAPRINE HCL 10 MG TABS TAKE 1/2 - 1 TAB EVERY 12 HOURS NEEDED 2010 CYCLOBENZAPRINE HCL 69324806406 No Longer Active Andrei Nichols MD Active CYCLOBENZAPRINE HCL 10 MG TABS TAKE 1/2 - 1 TAB EVERY 12 HOURS NEEDED 2010 CYCLOBENZAPRINE HCL 10 MG TABS 573260 CYCLOBENZAPRINE HCL Inactive SEROQUEL 100 MG TABS 1/2 TABLET at hs SEROQUEL 100 MG TABS 775614 QUETIAPINE FUMARATE Inactive VISTARIL 25 MG CAPS 1-2 tablets three times a day as needed VISTARIL 25 MG CAPS 093194 HYDROXYZINE PAMOATE Inactive METHOCARBAMOL 500 MG TABS 1 to 2 qid prn back spasm METHOCARBAMOL 500 MG TABS 528938 METHOCARBAMOL Inactive QVAR 40 MCG/ACT AERS one puff three times a day as needed QVAR 40 MCG/ACT AERS BECLOMETHASONE DIPROPIONATE Inactive NIX CREME RINSE 1 % LIQD apply as directed tonight, repeat at 7 days NIX CREME RINSE 1 % LIQD PERMETHRIN Inactive MELOXICAM 15 MG TABS 1 po q day for pain with food MELOXICAM 15 MG TABS 503435 MELOXICAM Inactive ALPRAZOLAM 1 MG TABS 1 tab tid ALPRAZOLAM 1 MG TABS 390300 ALPRAZOLAM Inactive LOMOTIL 2.5-0.025 MG TAB 1 to 2 four times a day as needed for diarrhea 05/28 LOMOTIL 2.5-0.025 MG TAB 5855511 DIPHENOXYLATE-ATROPINE Inactive PREDNISONE 20 MG TAB 2 tabs daily for 5 days, then 1 daily for 5 days PREDNISONE 20 MG TAB 213218 PREDNISONE Inactive TYLENOL WITH CODEINE #3 300-30 MG TABS 1 to 2 four times a day as needed for pain TYLENOL WITH CODEINE #3 300-30 MG TABS ACETAMINOPHEN-CODEINE Inactive PERMETHRIN 5 % CREA applyhead to toes tonight and then rinse off in 18 hours. repeat at 7 days if needed. PERMETHRIN 5 % CREA 021658 PERMETHRIN Inactive CLONAZEPAM 1 MG TABS take at bedtime CLONAZEPAM 1 MG TABS 815610 CLONAZEPAM Inactive FLEXERIL 10 MG TAB 1/2 to one tablet every 12 hours as needed FLEXERIL 10 MG TAB CYCLOBENZAPRINE HCL Inactive CELEXA 20 MG TABS 1and 1/2 tablets by mouth daily CELEXA 20 MG TABS 139199 CITALOPRAM HYDROBROMIDE Inactive AMOXICILLIN 500 MG TABS take one tab po tid x 10 days AMOXICILLIN 500 MG TABS 490754 AMOXICILLIN Inactive TRIAMCINOLONE ACETONIDE 0.1 % CREA apply three times daily prn rash TRIAMCINOLONE ACETONIDE 0.1 % CREA 0065257 TRIAMCINOLONE ACETONIDE Inactive SEROQUEL 100 MG TABS 1 tablet at HS SEROQUEL 100 MG TABS 502976 QUETIAPINE FUMARATE Inactive SEROQUEL 50 MG TABS 1 tablet at HS SEROQUEL 50 MG TABS 581118 QUETIAPINE FUMARATE Inactive HYDROCODONE-ACETAMINOPHEN 5-325 MG TABS 1/2 to 1 po q 4 hours prn pain 11/13 HYDROCODONE-ACETAMINOPHEN 5-325 MG TABS 678896 HYDROCODONE- ACETAMINOPHEN Inactive PREDNISONE 20 MG TABS 1 tablet by mouth twice daily for 2 days, then 1 daily for 2 days PREDNISONE 20 MG TABS 371415 PREDNISONE Inactive GUAIFENESIN-CODEINE 100-10 MG/5ML SYRP 1-2 tsp PO q6h PRN cough GUAIFENESIN-CODEINE 100-10 MG/5ML SYRP 905226 GUAIFENESIN-CODEINE Inactive GUAIFENESIN-CODEINE 100-10 MG/5ML SYRP 1 tsp PO q6h PRN cough GUAIFENESIN-CODEINE 100-10 MG/5ML SYRP 760473 GUAIFENESIN-CODEINE Inactive BACTROBAN 2 % OINTMENT Apply bid to affected area BACTROBAN 2 % OINTMENT 921491 MUPIROCIN Inactive PROMETHAZINE HCL 25 MG TABS take 1 po Q 8 hours prn nausea and vomiting 12/11 PROMETHAZINE HCL 25 MG TABS 890638 PROMETHAZINE HCL Inactive AMOXICILLIN 400 MG/5ML SUSR 6ml three times a day for 10 days AMOXICILLIN 400 MG/5ML SUSR 573878 AMOXICILLIN Inactive LAMISIL AT 1 % CREA apply bid to rash LAMISIL AT 1 % CREA 931433 TERBINAFINE HCL Inactive PROMETHAZINE HCL 25 MG TABS 1 four times a day as needed for nausea/vomiting PROMETHAZINE HCL 25 MG TABS 116050 PROMETHAZINE HCL Inactive GUAIFENESIN-CODEINE 100-10 MG/5ML SYRP 1 tsp PO q6h PRN cough GUAIFENESIN-CODEINE 100-10 MG/5ML SYRP 326330 GUAIFENESIN-CODEINE Inactive KEFLEX 500 MG CAP 1 po qid KEFLEX 500 MG CAP 679750 CEPHALEXIN Inactive GUAIFENESIN-CODEINE 100-10 MG/5ML SYRP 1 tsp PO q6h PRN cough GUAIFENESIN-CODEINE 100-10 MG/5ML SYRP 853775 GUAIFENESIN-CODEINE Inactive TYLENOL WITH CODEINE #3 300-30 MG TABS ONE TABLET FOUR TIMES A DAY NEEDED for pain or cough TYLENOL WITH CODEINE #3 300-30 MG TABS ACETAMINOPHEN-CODEINE Inactive STROMECTOL 3 MG TABS 6 pills by mouth x 1; repeat in 10 days 2012 STROMECTOL 3 MG TABS 853423 IVERMECTIN Inactive LOMOTIL 2.5-0.025 MG TAB 1 to 2 four times a day as needed for diarrhea 01/21 LOMOTIL 2.5-0.025 MG TAB 4097823 DIPHENOXYLATE-ATROPINE Inactive CELEXA 20 MG TABS Take 1.5 tablets daily CELEXA 20 MG TABS 617053 CITALOPRAM HYDROBROMIDE Inactive PERMETHRIN 5 % CREA apply neck to toes tonight and then rinse off in morning. repeat at 7 days PERMETHRIN 5 % CREA 729922 PERMETHRIN Inactive STROMECTOL 3 MG TABS 5 tablets by mouth one time on an empty stomach, may repeat in 2 weeks if needed STROMECTOL 3 MG TABS 616405 IVERMECTIN Inactive BACTRIM DS 800-160 MG TAB 1 tab by mouth twice daily BACTRIM DS 800-160 MG TAB 565933 TRIMETHOPRIM-SULFAMETHOXAZOLE Inactive SEROQUEL 200 MG TABS 1 tablet at bedtime. SEROQUEL 200 MG TABS 808025 QUETIAPINE FUMARATE Inactive CYCLOBENZAPRINE HCL 10 MG TABS 1 three times a day as needed for back spasm CYCLOBENZAPRINE HCL 10 MG TABS 313875 CYCLOBENZAPRINE HCL Inactive HYDROXYZINE HCL 10 MG TABS 1 to 2 three times a day as needed for itching HYDROXYZINE HCL 10 MG TABS 712901 HYDROXYZINE HCL Inactive TESSALON PERLES 100 MG CAP 1 tablet by mouth 3 times daily 01/20 TESSALON PERLES 100 MG CAP 316577 BENZONATATE Inactive CYCLOBENZAPRINE HCL 10 MG TABS 1/2 to 1 tablet by mouth three times daily as needed for muscle spasm/pain CYCLOBENZAPRINE HCL 10 MG TABS 067218 CYCLOBENZAPRINE HCL Inactive CYCLOBENZAPRINE HCL 10 MG TABS 1/2 to 1 tablet every 4 hours CYCLOBENZAPRINE HCL 10 MG TABS 873198 CYCLOBENZAPRINE HCL Inactive LATUDA 20 MG TABS 1 tab at at night with meal LATUDA 20 MG TABS LURASIDONE HCL Inactive IBUPROFEN 600 MG TAB 1 tablet three times a day as needed IBUPROFEN 600 MG TAB 416188 IBUPROFEN Inactive PROAIR HFA 108 (90 BASE) MCG/ACT AERS 2 puffs four times a day as needed 2011 PROAIR HFA 108 (90 BASE) MCG/ACT AERS ALBUTEROL SULFATE Inactive FETZIMA 40 MG ORAL [id number] FETZIMA 40 MG ORAL [id number] LEVOMILNACIPRAN HCL Inactive SEROQUEL 200 MG ORAL TABS Take 1 tablet at hs SEROQUEL 200 MG ORAL TABS 516025 QUETIAPINE FUMARATE Inactive AMOXICILLIN 500 MG TABS 2 tabs twice a day for 10 days AMOXICILLIN 500 MG TABS 813939 AMOXICILLIN Inactive PROMETHAZINE HCL 25 MG TABS 1 four times a day as needed for vomiting PROMETHAZINE HCL 25 MG TABS 776226 PROMETHAZINE HCL Inactive KLONOPIN 1 MG TABS 1 tablet TID KLONOPIN 1 MG TABS 737004 CLONAZEPAM Inactive PROAIR HFA 108 (90 BASE) MCG/ACT AERS 2 puffs four times a day as needed 2015 PROAIR HFA 108 (90 BASE) MCG/ACT AERS ALBUTEROL SULFATE Inactive BACTRIM DS 800-160 MG TAB 1 tab by mouth twice daily BACTRIM DS 800-160 MG TAB 804975 TRIMETHOPRIM-SULFAMETHOXAZOLE Inactive AMOXICILLIN 400 MG/5ML SUSR 5ml po TID x 10 days AMOXICILLIN 400 MG/5ML SUSR 517225 AMOXICILLIN Inactive FLAGYL 500 MG TABS four tabs PO one time FLAGYL 500 MG TABS 611059 METRONIDAZOLE Inactive AMOXICILLIN 500 MG TABS Take one tab by mouth 3 times daily, morning, afternoon and evening for 7 days. AMOXICILLIN 500 MG TABS 809491 AMOXICILLIN Inactive AMOXICILLIN 500 MG CAPS 2 po BID x 10 days AMOXICILLIN 500 MG CAPS 087152 AMOXICILLIN Inactive AMOXICILLIN 500 MG CAPS 2 po BID x 10 days AMOXICILLIN 500 MG CAPS 071902 AMOXICILLIN Inactive PENICILLIN V POTASSIUM 500 MG TABS 1 TID PENICILLIN V POTASSIUM 500 MG TABS 381887 PENICILLIN V POTASSIUM Inactive BACTRIM DS 800-160 MG TABS 1 po BID x 10 days BACTRIM DS 800-160 MG TABS 852553 SULFAMETHOXAZOLE-TRIMETHOPRIM Inactive ZITHROMAX 250 MG TAB 2 po today, then 1 po q days 2-5 ZITHROMAX 250 MG TAB 5921720 AZITHROMYCIN Inactive TAMIFLU 75 MG CAPS 1 bid x 5 days TAMIFLU 75 MG CAPS 307398 OSELTAMIVIR PHOSPHATE Inactive AZITHROMYCIN 250 MG TABS 2 po qd x 1 day, then 1 po qd x 4 days AZITHROMYCIN 250 MG TABS 2082857 AZITHROMYCIN Inactive MEDROL (NISA) 4 MG TABS 6 tabs on day 1, 5 tabs on day 2, 4 tabs on day 3, 3 tabs on day 4, 2 tabs on day 5, 1 tab on day 6 MEDROL ( NISA) 4 MG TABS 639338 METHYLPREDNISOLONE Inactive SUPRAX 400 MG CAPS Take one tablet twice daily for 7 days SUPRAX 400 MG CAPS CEFIXIME Inactive AMITRIPTYLINE HCL 50 MG TAB 1 po q hs for sleep AMITRIPTYLINE HCL 50 MG TAB 160794 AMITRIPTYLINE HCL Inactive ZITHROMAX 250 MG TAB 2 po today, then 1 po q days 2-5 ZITHROMAX 250 MG TAB 9108562 AZITHROMYCIN Inactive Immunizations Vaccine Administration Date Value Standard Description Seasonal influenza vaccine, injectable, containing preservative, for > 3 years old (Afluria, FluLaval, Fluzone, Fluvirin, Fluarix, Agriflu(>=18 yo)) Fluzone (>3 yrs.) [[id number]] Influenza, seasonal, injectable pneumococcal immunization administered Pneumovax 23 [CVX33] pneumococcal polysaccharide vaccine, 23 valent Seasonal influenza vaccine, injectable, containing preservative, for > 3 years old (Afluria, FluLaval, Fluzone, Fluvirin, Fluarix, Agriflu(>=18 yo)) Fluzone (>3 yrs.) [[id number]] Influenza, seasonal, injectable Seasonal influenza vaccine, injectable, containing preservative, for > 3 years old (Afluria, FluLaval, Fluzone, Fluvirin, Fluarix, Agriflu(>=18 yo)) Fluzone (>3 yrs.) [[id number]] Influenza, seasonal, injectable hepatitis B vaccine #1 [...] Measured Encounters Code Encounter Date Provider Facility CPT-12266 Level 4 Est. Patient 14:18:58 CDT Corky Juliann Mckeon DO [facility] CPT-27359 Level 3 Est. Patient 16:47:47 CDT Renetta Ryan Former[facility]-82847 Level 3 Est. Patient 11:04:11 CAREER GUIDANCE TECHNICIAN Jani Marrero MD [facility] CPT-95479 Level 3 Est. Patient 12:02:27 CAREER GUIDANCE TECHNICIAN Andrei Nichols MD [facility]-27913 Level 3 Est. Patient 12:47:17 CAREER GUIDANCE TECHNICIAN Andrei Nichols MD [facility] CPT-32386 Level 3 Est. Patient 14:51:20 CAREER GUIDANCE TECHNICIAN Shikha Randolph [facility] CPT-50219 Level 3 Est. Patient 10:42:38 CDT Shikha Randolph [facility] CPT-50342 Level 3 Est. Patient 18:20:39 CDT Prisca Lockwood MD PhD [facility] CPT-56414 Level 3 Est. Patient 16:42:47 CAREER GUIDANCE TECHNICIAN Rosalie Boyd [facility] CPT-53318 Level 3 Est. Patient 14:34:36 CAREER GUIDANCE TECHNICIAN Rosalie Boyd [facility] CPT-47552 Level 4 Est. Patient 10:23:07 CAREER GUIDANCE TECHNICIAN Andrei Nichols MD [facility] CPT-46311 Level 3 Est. Patient 16:47:31 CAREER GUIDANCE TECHNICIAN Andrei Nichols MD [facility]-75995 Level 3 Est. Patient 11:59:14 CDT Rosalie Boyd [facility] CPT-54301 Level 3 Est. Patient 15:30:34 CDT Giovany URBINA [facility] CPT-38412 Level 3 Est. Patient 11:03:03 CDT Rosalie Oliver BO [facility] CPT-52274 Level 3 Est. Patient 11:08:07 CDT Rosalie Boyd [facility] CPT-05373 Level 3 Est. Patient 14:07:32 CDT Andrei Nichols MD [facility] CPT-17172 Level 3 Est. Patient 17:08:28 CDT Andrei Nichols MD [facility] CPT-50561 Level 3 Est. Patient 13:10:13 CDT Jani Marrero MD [facility] CPT-57980 Level 3 Est. Patient 11:27:12 CDT Jani Marrero MD [facility] CPT-23291 Level 3 Est. Patient 13:44:42 CDT Andrei Nichols MD [facility] CPT-69328 Level 3 Est. Patient 12:34:57 CAREER GUIDANCE TECHNICIAN Andrei Nichols MD [facility] CPT-49065 Level 3 Est. Patient 15:30:06 CDT Jani Marrero MD [facility] CPT-05792 Level 3 Est. Patient 21:59:00 CDT Corky Mckeon DO [facility] CPT-58090 Level 3 Est. Patient 17:12:49 CDT Andrei Nichols MD [facility] CPT-17675 Level 4 Est. Patient 12:27:45 CAREER GUIDANCE TECHNICIAN Andrei Nichols MD [facility] CPT-90880 Level 3 Est. Patient 12:15:34 CAREER GUIDANCE TECHNICIAN Andrei Nichols MD [facility] Procedures Code Procedure Name Date Entry Date Standard Description CPT-39292 Knee, left, 3V - XRAY USE ONLY 14:53:02 CDT CPT-OV Office Visit 11:36:40 CDT CPT-98114 Administration 2+ single or combination vaccines inc oral 07:50:30 CDT CPT-38181 Administration single or combination vaccine inc oral 07 :50:30 CDT CPT-56768 Pneumovax 07:50:30 CDT CPT-91907 Influenza split virus > age 3 07:50:30 CDT CPT-OV Office Visit 11:49:10 CAREER GUIDANCE TECHNICIAN CPT-21628 Nexplanon Removal with Reinsertion 14:02:06 CAREER GUIDANCE TECHNICIAN CPT-J7307 Nexplanon (Implant) 14:02:06 CAREER GUIDANCE TECHNICIAN CPT-OV Office Visit 14:02:06 CAREER GUIDANCE TECHNICIAN CPT-OV Office Visit 11:58:04 CAREER GUIDANCE TECHNICIAN CPT-77717 Administration single or [facility] oral 11 :31:07 CDT CPT-63510 Influenza split virus > age 3 11:31:07 CDT CPT-17978 Administration single or combination vaccine inc oral 10 :34:13 CDT CPT-05054 Influenza split virus > age 3 10:34:13 CDT
--- OUTSIDE RECORDS SUMMARY | 2017-01-02 18:28 | XMS REPORT | Clinical Summary ---
Author Author Admin, E Organization [facility] Address Unknown Phone Unavailable Allergies, Adverse [...] INSERTION OF IMPLANTABLE SUBDERMAL CONTRACEPTIVE V25.5 Resolved lAondra Denton MD Encounter for insertion of implantable [...] Sinusitis, frontal, acute 461.1 Resolved Shikha Yokum FACILITIES OFFICER Acute frontal sinusitis Pharyngitis 462 Resolved Shikha Yokum FACILITIES OFFICER Acute pharyngitis Scabies 133.0 Resolved Shikha Yokum FACILITIES OFFICER Scabies Folliculitis 704.8 Resolved Shikha Yokum FACILITIES OFFICER Other specified diseases of hair and [...] Kirk PA ECZEMA ICD-692.9 Inactive Shikha Ageesiva FACILITIES OFFICER OTITIS MEDIA ICD-382.9 Inactive Ary Kirk PA 09/16 PHARYNGITIS ICD-462 Inactive Andrei Nichols MD UNSPECIFIED DISORDER TEETH&SUPPORTING STRUCTURES ICD-525.9 12/29 Inactive Shikha Randolph FACILITIES OFFICER PHARYNGITIS-ACUTE ICD-462 Inactive Rosalie Boyd FACILITIES OFFICER DIARRHEA ICD-787.91 Inactive Andrei Nichols MD SHOULDER PAIN ICD-719.41 Inactive Shikha Randolph FACILITIES OFFICER NAUSEA AND VOMITING ICD-787.01 Inactive Andrei [...] PhD Dental caries ICD-521.00 Inactive Shikha Yokum FACILITIES OFFICER Tooth pain ICD-525.9 Inactive Prisca Lockwood MD PhD Head lice ICD-132.0 Inactive Prisca Lockwood MD PhD Upper respiratory infection ICD-465.9 Inactive Prisca Lockwood MD PhD Sinusitis, frontal, acute ICD-461.1 Inactive Shikha Yokum FACILITIES OFFICER Pharyngitis ICD-462 Inactive Shikha Yokum FACILITIES OFFICER 2013 Scabies ICD-133.0 Inactive Shikha Yokum FACILITIES OFFICER 12/29 Folliculitis ICD-704.8 Inactive Shikha Yokum FACILITIES OFFICER Cough ICD-786.2 Inactive Andrei Nichols MD SINUSITIS, ACUTE ICD-461.9 Inactive Jani Marrero MD Medication List Medication Instructions Start Date Stop Date Generic Name NDC Status Provider Patient Instruction ZITHROMAX 250 MG TAB 2 po today, then 1 po q days 2-5 AZITHROMYCIN [id number] No Longer Active Jani Marrero MD Active IBUPROFEN 800 MG TABS 1 tab PO TID IBUPROFEN 19177459826 Active Jani Marrero MD Active WELLBUTRIN SR 100 MG ORAL [id number]-PMR 1 TAB PO DAILY BUPROPION HCL 78153636329 Active Jani Marrero MD Active AMITRIPTYLINE HCL 50 MG TAB 1 po q hs for sleep AMITRIPTYLINE HCL 05364965899 No Longer Active Jani Marrero MD Active PROMETHAZINE HCL 25 MG TABS 1 four times a day as needed for vomiting PROMETHAZINE HCL 63301684248 No Longer Active Jani Marrero MD Active AMOXICILLIN 500 MG TABS 2 tabs twice a day for 10 days AMOXICILLIN 62485133288 No Longer Active Jani Marrero MD Active SEROQUEL 200 MG ORAL TABS Take 1 tablet at hs QUETIAPINE FUMARATE 75268262775 No Longer Active Jani Marrero MD Active FETZIMA 40 MG ORAL [id number] LEVOMILNACIPRAN HCL 25658788441 No Longer Active Jani Marrero MD Active PROAIR HFA 108 (90 BASE) MCG/ACT AERS 2 puffs four times a day as needed 2015 ALBUTEROL SULFATE 21156876551 Active Andrei Nichols MD Active KLONOPIN 1 MG TABS 1 tablet TID CLONAZEPAM 00742973231 Active Andrei Nichols MD Active PROAIR HFA 108 (90 BASE) MCG/ACT AERS 2 puffs four times a day as needed 2011 ALBUTEROL SULFATE 71769725689 No Longer Active Alondra Denton MD Active IBUPROFEN 600 MG TAB 1 tablet three times a day as needed IBUPROFEN 33596851749 No Longer Active Alondra Denton MD Active LATUDA 20 MG TABS 1 tab at at night with meal LURASIDONE HCL 43900208436 No Longer Active Alondra Denton MD Active CYCLOBENZAPRINE HCL 10 MG TABS 1/2 to 1 tablet every 4 hours CYCLOBENZAPRINE HCL 66974710019 No Longer Active Alondra Denton MD Active CYCLOBENZAPRINE HCL 10 MG TABS 1/2 to 1 tablet by mouth three times daily as needed for muscle spasm/pain CYCLOBENZAPRINE HCL 92561465181 No Longer Active Alondra Denton MD Active SUPRAX 400 MG CAPS Take one tablet twice daily for 7 days CEFIXIME 53987457831 No Longer Active Shikha Yokum FACILITIES OFFICER Active TESSALON PERLES 100 MG CAP 1 tablet by mouth 3 times daily 01/20 BENZONATATE 88974978506 No Longer Active Shikha Yokum FACILITIES OFFICER Active HYDROXYZINE HCL 10 MG TABS 1 to 2 three times a day as needed for itching HYDROXYZINE HCL 77020806703 No Longer Active Shikha Yokum FACILITIES OFFICER Active CYCLOBENZAPRINE HCL 10 MG TABS 1 three times a day as needed for back spasm CYCLOBENZAPRINE HCL 03631516126 No Longer Active Shikha Yokum FACILITIES OFFICER Active SEROQUEL 200 MG TABS 1 tablet at bedtime. QUETIAPINE FUMARATE 84464379800 No Longer Active Shikha Yokum FACILITIES OFFICER Active BACTRIM DS 800-160 MG TAB 1 tab by mouth twice daily TRIMETHOPRIM-SULFAMETHOXAZOLE 16992467555 No Longer Active Shikha Yokum FACILITIES OFFICER Active STROMECTOL 3 MG TABS 5 tablets by mouth one time on an empty stomach, may repeat in 2 weeks if needed IVERMECTIN 22200220581 No Longer Active Shikha Yokum FACILITIES OFFICER Active PERMETHRIN 5 % CREA apply neck to toes tonight and then rinse off in morning. repeat at 7 days PERMETHRIN 48221928498 No Longer Active Andrei Nichols MD Active MEDROL (NISA) 4 MG TABS 6 tabs on day 1, 5 tabs on day 2, 4 tabs on day 3, 3 tabs on day 4, 2 tabs on day 5, 1 tab on day 6 METHYLPREDNISOLONE 07869914469 No Longer Active Prisca Lockwood MD PhD Active AZITHROMYCIN 250 MG TABS 2 po qd x 1 day, then 1 po qd x 4 days AZITHROMYCIN 60207594017 No Longer Active Prisca Lockwood MD PhD Active CELEXA 20 MG TABS Take 1.5 tablets daily CITALOPRAM HYDROBROMIDE 96411955854 No Longer Active Prisca Lockwood MD PhD Active LOMOTIL 2.5-0.025 MG TAB 1 to 2 four times a day as needed for diarrhea 01/21 DIPHENOXYLATE-ATROPINE 82630456372 No Longer Active Prisca Lockwood MD PhD Active TAMIFLU 75 MG CAPS 1 bid x 5 days OSELTAMIVIR PHOSPHATE 70213855884 No Longer Active Rosalie Boyd APRN Active ZITHROMAX 250 MG TAB 2 po today, then 1 po q days 2-5 AZITHROMYCIN 15577228010 No Longer Active Rosalie Boyd APRN Active STROMECTOL 3 MG TABS 6 pills by mouth x 1; repeat in 10 days 2012 IVERMECTIN 30020520797 No Longer Active Rosalie Boyd APRN Active TYLENOL WITH CODEINE #3 300-30 MG TABS ONE TABLET FOUR TIMES A DAY NEEDED for pain or cough ACETAMINOPHEN-CODEINE 97082971925 No Longer Active Rosalie Boyd APRN Active GUAIFENESIN-CODEINE 100-10 MG/5ML SYRP 1 tsp PO q6h PRN cough GUAIFENESIN-CODEINE 18540356690 No Longer Active Rosalie Boyd APRN Active KEFLEX 500 MG CAP 1 po qid CEPHALEXIN 07342525356 No Longer Active Rosalie Boyd APRN Active GUAIFENESIN-CODEINE 100-10 MG/5ML SYRP 1 tsp PO q6h PRN cough GUAIFENESIN-CODEINE 75301003712 No Longer Active Rosalie Boyd APRN Active PROMETHAZINE HCL 25 MG TABS 1 four times a day as needed for nausea/vomiting PROMETHAZINE HCL 57423379326 No Longer Active Rosalie Boyd APRN Active LAMISIL AT 1 % CREA apply bid to rash TERBINAFINE HCL 88677591240 No Longer Active Andrei Nichols MD Active AMOXICILLIN 400 MG/5ML SUSR 6ml three times a day for 10 days AMOXICILLIN 10703037216 No Longer Active Andrei Nichols MD Active PROMETHAZINE HCL 25 MG TABS take 1 po Q 8 hours prn nausea and vomiting 12/11 PROMETHAZINE HCL 57216364327 No Longer Active Andrei Nichols MD Active BACTROBAN 2 % OINTMENT Apply bid to affected area MUPIROCIN 58909670372 No Longer Active Andrei Nichols MD Active GUAIFENESIN-CODEINE 100-10 MG/5ML SYRP 1 tsp PO q6h PRN cough GUAIFENESIN-CODEINE 81011772349 No Longer Active Andrei Nichols MD Active BACTRIM DS 800-160 MG TABS 1 po BID x 10 days SULFAMETHOXAZOLE-TRIMETHOPRIM 78822045099 No Longer Active Rosalie Boyd APRN Active GUAIFENESIN-CODEINE 100-10 MG/5ML SYRP 1-2 tsp PO q6h PRN cough GUAIFENESIN-CODEINE 94101338252 No Longer Active Giovany URBINA Active PREDNISONE 20 MG TABS 1 tablet by mouth twice daily for 2 days, then 1 daily for 2 days PREDNISONE 70239415616 No Longer Active Giovany URBINA Active HYDROCODONE-ACETAMINOPHEN 5-325 MG TABS 1/2 to 1 po q 4 hours prn pain 11/13 HYDROCODONE-ACETAMINOPHEN 18109405108 No Longer Active Rosalie Boyd APRN Active PENICILLIN V POTASSIUM 500 MG TABS 1 TID PENICILLIN V POTASSIUM 01387729426 No Longer Active Andrei Nicohls MD Active SEROQUEL 50 MG TABS 1 tablet at HS QUETIAPINE FUMARATE 50412918829 No Longer Active Andrei Nichols MD Active SEROQUEL 100 MG TABS 1 tablet at HS QUETIAPINE FUMARATE 55547976732 No Longer Active Andrei Nichols MD Active TRIAMCINOLONE ACETONIDE 0.1 % CREA apply three times daily prn rash TRIAMCINOLONE ACETONIDE 05844174560 No Longer Active Andrei Nichols MD Active AMOXICILLIN 500 MG TABS take one tab po tid x 10 days AMOXICILLIN 29808235208 No Longer Active Andrei Nichols MD Active CELEXA 20 MG TABS 1and 1/2 tablets by mouth daily CITALOPRAM HYDROBROMIDE 69868816636 No Longer Active Ary Pool PA Active FLEXERIL 10 MG TAB 1/2 to one tablet every 12 hours as needed CYCLOBENZAPRINE HCL 83881658759 No Longer Active Ary Pool PA Active CLONAZEPAM 1 MG TABS take at bedtime CLONAZEPAM 80836071518 No Longer Active Ary Pool PA Active PERMETHRIN 5 % CREA applyhead to toes tonight and then rinse off in 18 hours. repeat at 7 days if needed. PERMETHRIN 63231272751 No Longer Active Ary Pool PA Active AMOXICILLIN 500 MG CAPS 2 po BID x 10 days AMOXICILLIN 06641842892 No Longer Active Andrei Nichols MD Active TYLENOL WITH CODEINE #3 300-30 MG TABS 1 to 2 four times a day as needed for pain ACETAMINOPHEN-CODEINE 65336774160 No Longer Active Reta Hampton Active PREDNISONE 20 MG TAB 2 tabs daily for 5 days, then 1 daily for 5 days PREDNISONE 99397098024 No Longer Active Reta Hampton Active LOMOTIL 2.5-0.025 MG TAB 1 to 2 four times a day as needed for diarrhea 05/28 DIPHENOXYLATE-ATROPINE 99312419228 No Longer Active Reta Hampton Active ALPRAZOLAM 1 MG TABS 1 tab tid ALPRAZOLAM 52424206884 No Longer Active Retarylee Hampton Active AMOXICILLIN 500 MG CAPS 2 po BID x 10 days AMOXICILLIN 09680189180 No Longer Active Andrei Nichols MD Active AMOXICILLIN 500 MG TABS Take one tab by mouth 3 times daily, morning, afternoon and evening for 7 days. AMOXICILLIN 85348675918 No Longer Active Virginia Alejandra RN Active VICODIN 5-300 MG TABS one tab PO Q 6 hours PRN pain HYDROCODONE-ACETAMINOPHEN 71459741392 No Longer Active Virginia Alejandra RN Active FLAGYL 500 MG TABS four tabs PO one time METRONIDAZOLE 58356731072 No Longer Active Alondra Denton MD Active MELOXICAM 15 MG TABS 1 po q day for pain with food MELOXICAM 21295815025 No Longer Active Alondra Denton MD Active AMOXICILLIN 400 MG/5ML SUSR 5ml po TID x 10 days AMOXICILLIN 22293171911 No Longer Active Jani Marrero MD Active NIX CREME RINSE 1 % LIQD apply as directed carlotta, repeat at 7 days PERMETHRIN 10469061450 No Longer Active Corky Mckeon DO Active QVAR 40 MCG/ACT AERS one puff three times a day as needed BECLOMETHASONE DIPROPIONATE 82153836234 No Longer Active Andrei Nichols MD Active METHOCARBAMOL 500 MG TABS 1 to 2 qid prn back spasm METHOCARBAMOL 75332655315 No Longer Active Andrei Nichols MD Active VISTARIL 25 MG CAPS 1-2 tablets three times a day as needed HYDROXYZINE PAMOATE 02217074457 No Longer Active Andrei Nichols MD Active SEROQUEL 100 MG TABS 1/2 TABLET at hs QUETIAPINE FUMARATE 10758092271 No Longer Active Aicha Rizzo RN Active BACTRIM DS 800-160 MG TAB 1 tab by mouth twice daily TRIMETHOPRIM-SULFAMETHOXAZOLE 44395897550 No Longer Active Prisca Lockwood MD PhD Active CYCLOBENZAPRINE HCL 10 MG TABS TAKE 1/2 - 1 TAB EVERY 12 HOURS NEEDED 2010 CYCLOBENZAPRINE HCL 12742086458 No Longer Active Andrei Nichols MD Active CYCLOBENZAPRINE HCL 10 MG TABS TAKE 1/2 - 1 TAB EVERY 12 HOURS NEEDED 2010 CYCLOBENZAPRINE HCL 10 MG TABS 971739 CYCLOBENZAPRINE HCL Inactive SEROQUEL 100 MG TABS 1/2 TABLET at hs SEROQUEL 100 MG TABS 366987 QUETIAPINE FUMARATE Inactive VISTARIL 25 MG CAPS 1-2 tablets three times a day as needed VISTARIL 25 MG CAPS 369018 HYDROXYZINE PAMOATE Inactive METHOCARBAMOL 500 MG TABS 1 to 2 qid prn back spasm METHOCARBAMOL 500 MG TABS 088958 METHOCARBAMOL Inactive QVAR 40 MCG/ACT AERS one puff three times a day as needed QVAR 40 MCG/ACT AERS BECLOMETHASONE DIPROPIONATE Inactive NIX CREME RINSE 1 % LIQD apply as directed tonight, repeat at 7 days NIX CREME RINSE 1 % LIQD PERMETHRIN Inactive MELOXICAM 15 MG TABS 1 po q day for pain with food MELOXICAM 15 MG TABS 565596 MELOXICAM Inactive ALPRAZOLAM 1 MG TABS 1 tab tid ALPRAZOLAM 1 MG TABS 681779 ALPRAZOLAM Inactive LOMOTIL 2.5-0.025 MG TAB 1 to 2 four times a day as needed for diarrhea 05/28 LOMOTIL 2.5-0.025 MG TAB 1744479 DIPHENOXYLATE-ATROPINE Inactive PREDNISONE 20 MG TAB 2 tabs daily for 5 days, then 1 daily for 5 days PREDNISONE 20 MG TAB 338604 PREDNISONE Inactive TYLENOL WITH CODEINE #3 300-30 MG TABS 1 to 2 four times a day as needed for pain TYLENOL WITH CODEINE #3 300-30 MG TABS ACETAMINOPHEN-CODEINE Inactive PERMETHRIN 5 % CREA applyhead to toes tonight and then rinse off in 18 hours. repeat at 7 days if needed. PERMETHRIN 5 % CREA 871100 PERMETHRIN Inactive CLONAZEPAM 1 MG TABS take at bedtime CLONAZEPAM 1 MG TABS 176880 CLONAZEPAM Inactive FLEXERIL 10 MG TAB 1/2 to one tablet every 12 hours as needed FLEXERIL 10 MG TAB CYCLOBENZAPRINE HCL Inactive CELEXA 20 MG TABS 1and 1/2 tablets by mouth daily CELEXA 20 MG TABS 152685 CITALOPRAM HYDROBROMIDE Inactive AMOXICILLIN 500 MG TABS take one tab po tid x 10 days AMOXICILLIN 500 MG TABS 934816 AMOXICILLIN Inactive TRIAMCINOLONE ACETONIDE 0.1 % CREA apply three times daily prn rash TRIAMCINOLONE ACETONIDE 0.1 % CREA 0877096 TRIAMCINOLONE ACETONIDE Inactive SEROQUEL 100 MG TABS 1 tablet at HS SEROQUEL 100 MG TABS 778427 QUETIAPINE FUMARATE Inactive SEROQUEL 50 MG TABS 1 tablet at HS SEROQUEL 50 MG TABS 342817 QUETIAPINE FUMARATE Inactive HYDROCODONE-ACETAMINOPHEN 5-325 MG TABS 1/2 to 1 po q 4 hours prn pain 11/13 HYDROCODONE-ACETAMINOPHEN 5-325 MG TABS 101922 HYDROCODONE- ACETAMINOPHEN Inactive PREDNISONE 20 MG TABS 1 tablet by mouth twice daily for 2 days, then 1 daily for 2 days PREDNISONE 20 MG TABS 378111 PREDNISONE Inactive GUAIFENESIN-CODEINE 100-10 MG/5ML SYRP 1-2 tsp PO q6h PRN cough GUAIFENESIN-CODEINE 100-10 MG/5ML SYRP 675532 GUAIFENESIN-CODEINE Inactive GUAIFENESIN-CODEINE 100-10 MG/5ML SYRP 1 tsp PO q6h PRN cough GUAIFENESIN-CODEINE 100-10 MG/5ML SYRP 245676 GUAIFENESIN-CODEINE Inactive BACTROBAN 2 % OINTMENT Apply bid to affected area BACTROBAN 2 % OINTMENT 161185 MUPIROCIN Inactive PROMETHAZINE HCL 25 MG TABS take 1 po Q 8 hours prn nausea and vomiting 12/11 PROMETHAZINE HCL 25 MG TABS 723873 PROMETHAZINE HCL Inactive AMOXICILLIN 400 MG/5ML SUSR 6ml three times a day for 10 days AMOXICILLIN 400 MG/5ML SUSR 734896 AMOXICILLIN Inactive LAMISIL AT 1 % CREA apply bid to rash LAMISIL AT 1 % CREA 045439 TERBINAFINE HCL Inactive PROMETHAZINE HCL 25 MG TABS 1 four times a day as needed for nausea/vomiting PROMETHAZINE HCL 25 MG TABS 544125 PROMETHAZINE HCL Inactive GUAIFENESIN-CODEINE 100-10 MG/5ML SYRP 1 tsp PO q6h PRN cough GUAIFENESIN-CODEINE 100-10 MG/5ML SYRP 626501 GUAIFENESIN-CODEINE Inactive KEFLEX 500 MG CAP 1 po qid KEFLEX 500 MG CAP 593585 CEPHALEXIN Inactive GUAIFENESIN-CODEINE 100-10 MG/5ML SYRP 1 tsp PO q6h PRN cough GUAIFENESIN-CODEINE 100-10 MG/5ML SYRP 903230 GUAIFENESIN-CODEINE Inactive TYLENOL WITH CODEINE #3 300-30 MG TABS ONE TABLET FOUR TIMES A DAY NEEDED for pain or cough TYLENOL WITH CODEINE #3 300-30 MG TABS ACETAMINOPHEN-CODEINE Inactive STROMECTOL 3 MG TABS 6 pills by mouth x 1; repeat in 10 days 2012 STROMECTOL 3 MG TABS 911324 IVERMECTIN Inactive LOMOTIL 2.5-0.025 MG TAB 1 to 2 four times a day as needed for diarrhea 01/21 LOMOTIL 2.5-0.025 MG TAB 0876300 DIPHENOXYLATE-ATROPINE Inactive CELEXA 20 MG TABS Take 1.5 tablets daily CELEXA 20 MG TABS 513434 CITALOPRAM HYDROBROMIDE Inactive PERMETHRIN 5 % CREA apply neck to toes tonight and then rinse off in morning. repeat at 7 days PERMETHRIN 5 % CREA 866659 PERMETHRIN Inactive STROMECTOL 3 MG TABS 5 tablets by mouth one time on an empty stomach, may repeat in 2 weeks if needed STROMECTOL 3 MG TABS 955577 IVERMECTIN Inactive BACTRIM DS 800-160 MG TAB 1 tab by mouth twice daily BACTRIM DS 800-160 MG TAB 444372 TRIMETHOPRIM-SULFAMETHOXAZOLE Inactive SEROQUEL 200 MG TABS 1 tablet at bedtime. SEROQUEL 200 MG TABS 327883 QUETIAPINE FUMARATE Inactive CYCLOBENZAPRINE HCL 10 MG TABS 1 three times a day as needed for back spasm CYCLOBENZAPRINE HCL 10 MG TABS 275366 CYCLOBENZAPRINE HCL Inactive HYDROXYZINE HCL 10 MG TABS 1 to 2 three times a day as needed for itching HYDROXYZINE HCL 10 MG TABS 690479 HYDROXYZINE HCL Inactive TESSALON PERLES 100 MG CAP 1 tablet by mouth 3 times daily 01/20 TESSALON PERLES 100 MG CAP 840940 BENZONATATE Inactive CYCLOBENZAPRINE HCL 10 MG TABS 1/2 to 1 tablet by mouth three times daily as needed for muscle spasm/pain CYCLOBENZAPRINE HCL 10 MG TABS 666328 CYCLOBENZAPRINE HCL Inactive CYCLOBENZAPRINE HCL 10 MG TABS 1/2 to 1 tablet every 4 hours CYCLOBENZAPRINE HCL 10 MG TABS 271336 CYCLOBENZAPRINE HCL Inactive LATUDA 20 MG TABS 1 tab at at night with meal LATUDA 20 MG TABS LURASIDONE HCL Inactive IBUPROFEN 600 MG TAB 1 tablet three times a day as needed IBUPROFEN 600 MG TAB 692929 IBUPROFEN Inactive PROAIR HFA 108 (90 BASE) MCG/ACT AERS 2 puffs four times a day as needed 2011 PROAIR HFA 108 (90 BASE) MCG/ACT AERS ALBUTEROL SULFATE Inactive FETZIMA 40 MG ORAL [id number] FETZIMA 40 MG ORAL [id number] LEVOMILNACIPRAN HCL Inactive SEROQUEL 200 MG ORAL TABS Take 1 tablet at hs SEROQUEL 200 MG ORAL TABS 320385 QUETIAPINE FUMARATE Inactive AMOXICILLIN 500 MG TABS 2 tabs twice a day for 10 days AMOXICILLIN 500 MG TABS 265266 AMOXICILLIN Inactive PROMETHAZINE HCL 25 MG TABS 1 four times a day as needed for vomiting PROMETHAZINE HCL 25 MG TABS 993494 PROMETHAZINE HCL Inactive BACTRIM DS 800-160 MG TAB 1 tab by mouth twice daily BACTRIM DS 800-160 MG TAB 915322 TRIMETHOPRIM-SULFAMETHOXAZOLE Inactive AMOXICILLIN 400 MG/5ML SUSR 5ml po TID x 10 days AMOXICILLIN 400 MG/5ML SUSR 600236 AMOXICILLIN Inactive FLAGYL 500 MG TABS four tabs PO one time FLAGYL 500 MG TABS 322333 METRONIDAZOLE Inactive AMOXICILLIN 500 MG TABS Take one tab by mouth 3 times daily, morning, afternoon and evening for 7 days. AMOXICILLIN 500 MG TABS 349836 AMOXICILLIN Inactive AMOXICILLIN 500 MG CAPS 2 po BID x 10 days AMOXICILLIN 500 MG CAPS 370925 AMOXICILLIN Inactive AMOXICILLIN 500 MG CAPS 2 po BID x 10 days AMOXICILLIN 500 MG CAPS 053375 AMOXICILLIN Inactive PENICILLIN V POTASSIUM 500 MG TABS 1 TID PENICILLIN V POTASSIUM 500 MG TABS 366159 PENICILLIN V POTASSIUM Inactive BACTRIM DS 800-160 MG TABS 1 po BID x 10 days BACTRIM DS 800-160 MG TABS 242053 SULFAMETHOXAZOLE-TRIMETHOPRIM Inactive ZITHROMAX 250 MG TAB 2 po today, then 1 po q days 2-5 ZITHROMAX 250 MG TAB 7905466 AZITHROMYCIN Inactive TAMIFLU 75 MG CAPS 1 bid x 5 days TAMIFLU 75 MG CAPS 532062 OSELTAMIVIR PHOSPHATE Inactive AZITHROMYCIN 250 MG TABS 2 po qd x 1 day, then 1 po qd x 4 days AZITHROMYCIN 250 MG TABS 4113050 AZITHROMYCIN Inactive MEDROL (NISA) 4 MG TABS 6 tabs on day 1, 5 tabs on day 2, 4 tabs on day 3, 3 tabs on day 4, 2 tabs on day 5, 1 tab on day 6 MEDROL ( NISA) 4 MG TABS 158424 METHYLPREDNISOLONE Inactive SUPRAX 400 MG CAPS Take one tablet twice daily for 7 days SUPRAX 400 MG CAPS CEFIXIME Inactive AMITRIPTYLINE HCL 50 MG TAB 1 po q hs for sleep AMITRIPTYLINE HCL 50 MG TAB 632161 AMITRIPTYLINE HCL Inactive ZITHROMAX 250 MG TAB 2 po today, then 1 po q days 2-5 ZITHROMAX 250 MG TAB 1510236 AZITHROMYCIN Inactive Immunizations Vaccine Administration Date Value Standard Description Seasonal influenza vaccine, injectable, containing preservative, for > 3 years old (Afluria, FluLaval, Fluzone, Fluvirin, Fluarix, Agriflu(>=18 yo)) Fluzone (>3 yrs.) [[id number]] Influenza, seasonal, injectable pneumococcal immunization administered Pneumovax 23 [CVX33] pneumococcal polysaccharide vaccine, 23 valent Seasonal influenza vaccine, injectable, containing preservative, for > 3 years old (Afluria, FluLaval, Fluzone, Fluvirin, Fluarix, Agriflu(>=18 yo)) Fluzone (>3 yrs.) [TGK325] Influenza, seasonal, injectable Seasonal influenza vaccine, injectable, containing preservative, for > 3 years old (Afluria, FluLaval, Fluzone, Fluvirin, Fluarix, Agriflu(>=18 yo)) Fluzone (>3 yrs.) [CWE079] Influenza, seasonal, injectable hepatitis B vaccine #1 [...] Measured Encounters Code Encounter Date Provider Facility CPT-13026 Level 3 Est. Patient 11:04:11 TIMBER HEWER Jani Marrero MD [facility] CPT-05465 Level 3 Est. Patient 12:02:27 TIMBER HEWER Andrei Nichols MD [facility] CPT-35243 Level 3 Est. Patient 12:47:17 TIMBER HEWER Andrei Nichols MD [facility] CPT-97349 Level 3 Est. Patient 14:51:20 TIMBER HEWER Shikha Randolph [facility] [place] CPT-76305 Level 3 Est. Patient 10:42:38 CDT Shikha Randolph [facility] [place] CPT-07035 Level 3 Est. Patient 18:20:39 CDT Prisca Lockwood MD PhD [facility] CPT-69575 Level 3 Est. Patient 16:42:47 TIMBER HEWER Rosalie Boyd [facility]-02309 Level 3 Est. Patient 14:34:36 TIMBER HEWER Rosalie Boyd [facility] CPT-12518 Level 4 Est. Patient 10:23:07 TIMBER HEWER Andrei Nichols MD [facility] CPT-06954 Level 3 Est. Patient 16:47:31 TIMBER HEWER Andrei Nichols MD [facility] CPT-87487 Level 3 Est. Patient 11:59:14 CDT Rosalie Boyd [facility] [place] CPT-00981 Level 3 Est. Patient 15:30:34 CDT Giovany URBINA [facility] CPT-78534 Level 3 Est. Patient 11:03:03 CDT Rosalie Boyd [facility] [place] CPT-62753 Level 3 Est. Patient 11:08:07 CDT Rosalie Boyd [facility] CPT-19167 Level 3 Est. Patient 14:07:32 CDT Andrei Nichols MD [facility]-43004 Level 3 Est. Patient 17:08:28 CDT Andrei Nichols MD [facility]-11549 Level 3 Est. Patient 13:10:13 CDT Jani Marrero MD [facility] CPT-50895 Level 3 Est. Patient 11:27:12 CDT Jani Marrero MD [facility] CPT-84947 Level 3 Est. Patient 13:44:42 CDT Andrei Nichols MD [facility] CPT-69485 Level 3 Est. Patient 12:34:57 TIMBER HEWER Andrei Nichols MD [facility] CPT-89835 Level 3 Est. Patient 15:30:06 CDT Jani Marrero MD [facility] CPT-99928 Level 3 Est. Patient 21:59:00 CDT Corky Mckeon DO [facility] CPT-47260 Level 3 Est. Patient 17:12:49 CDT Andrei Nichols MD [facility] CPT-73281 Level 4 Est. Patient 12:27:45 TIMBER HEWER Andrei Nichols MD [facility] CPT-96899 Level 3 Est. Patient 12:15:34 TIMBER HEWER Andrei Nichols MD [facility] Procedures Code Procedure Name Date Entry Date Standard Description CPT-01278 Knee, left, 3V - XRAY USE ONLY 14:53:02 CDT CPT-OV Office Visit 11:36:40 CDT CPT-64543 Administration 2+ single or combination vaccines inc oral 07:50:30 CDT CPT-76562 Administration single or combination vaccine inc oral 07 :50:30 CDT CPT-07897 Pneumovax 07:50:30 CDT CPT-98713 Influenza split virus > age 3 07:50:30 CDT CPT-OV Office Visit 11:49:10 TIMBER HEWER CPT-90158 Nexplanon Removal with Reinsertion 14:02:06 TIMBER HEWER CPT-J7307 Nexplanon (Implant) 14:02:06 TIMBER HEWER CPT-OV Office Visit 14:02:06 TIMBER HEWER CPT-OV Office Visit 11:58:04 TIMBER HEWER CPT-02590 Administration single or combination vaccine inc oral 11 :31:07 CDT CPT-10266 Influenza split virus > age 3 11:31:07 CDT CPT-37387 Administration single or combination vaccine inc oral 10 :34:13 CDT CPT-36185 Influenza split virus > age 3 10:34:13 CDT
--- OUTSIDE RECORDS SUMMARY | 2017-01-02 18:29 | XMS REPORT | Clinical Summary ---
Author Author Admin, E Organization [facility] [employer] Address Unknown Phone Unavailable Allergies, Adverse Reactions, [...] with vomiting DIARRHEA, ACUTE 787.91 Resolved Andrei Nichosl MD Diarrhea ABSCESS, SKIN 682.9 Resolved Andrei [...] Sinusitis, frontal, acute 461.1 Resolved Shikha Yokum ART SUPERVISOR Acute frontal sinusitis Pharyngitis 462 Resolved Shikha Yokum ART SUPERVISOR Acute pharyngitis Scabies 133.0 Resolved Shikha Yokum ART SUPERVISOR Scabies Folliculitis 704.8 Resolved Shikha Yokum ART SUPERVISOR Other specified diseases of hair and [...] Pool PA ECZEMA ICD-692.9 Inactive Shikhaciro Lockeum ART SUPERVISOR OTITIS MEDIA ICD-382.9 Inactive Ary Pool PA 09/16 PHARYNGITIS ICD-462 Inactive Andrei Nichols MD UNSPECIFIED DISORDER TEETH&SUPPORTING STRUCTURES ICD-525.9 12/29 Inactive Shikha Randolph ART SUPERVISOR PHARYNGITIS-ACUTE ICD-462 Inactive Rosalie Boyd ART SUPERVISOR DIARRHEA ICD-787.91 Inactive Andrei Nichols MD SHOULDER PAIN ICD-719.41 Inactive Shikha Randolph ART SUPERVISOR NAUSEA AND VOMITING ICD-787.01 Inactive Andrei Nichols MD DIARRHEA, ACUTE ICD-787.91 Inactive Andrie Nichols MD ABSCESS, SKIN ICD-682.9 Inactive Andrei [...] PhD Dental caries ICD-521.00 Inactive Shikha Yokum ART SUPERVISOR Tooth pain ICD-525.9 Inactive Pricsa Lockwood MD PhD Head lice ICD-132.0 Inactive Prisca Lockwood MD PhD Upper respiratory infection ICD-465.9 Inactive Prisca Lockwood MD PhD Sinusitis, frontal, acute ICD-461.1 Inactive Shikha Yokum ART SUPERVISOR Pharyngitis ICD-462 Inactive Shikha Yokum ART SUPERVISOR 2013 Scabies ICD-133.0 Inactive Shikha Yokum ART SUPERVISOR 12/29 Folliculitis ICD-704.8 Inactive Shikha Yokum ART SUPERVISOR Cough ICD-786.2 Inactive Andrei Nichols MD SINUSITIS, ACUTE ICD-461.9 Inactive Jani Marrero MD Medication List Medication Instructions Start Date Stop Date Generic Name NDC Status Provider Patient Instruction ZIAC 2.5-6.25 MG TAB 1 tablet daily for high blood pressure BISOPROLOL-HCTZ [id number] Active Corky Mckeon DO Active MELOXICAM 15 MG TABS 1 daily for knee pain MELOXICAM 89716171763 Active Renetta Ryan APRN Active CYCLOBENZAPRINE HCL 10 MG TABS 1 three times a day as needed for muscle spasm CYCLOBENZAPRINE HCL 92631016286 Active Renetta Ryan APRN Active BUSPIRONE HCL 10 MG ORAL TABS 2 TABS PO BID BUSPIRONE HCL 82547531742 Active Corky Mckeon DO Active AMITRIPTYLINE HCL 75 MG ORAL TABS 1 TAB Q HS AMITRIPTYLINE HCL 58734491745 Active Renetta Ryan APRN Active PROAIR HFA 108 (90 BASE) MCG/ACT AERS 2 puffs four times a day as needed 2015 ALBUTEROL SULFATE 27610280964 No Longer Active Renetta Ryan APRN Active KLONOPIN 1 MG TABS 1 tablet TID CLONAZEPAM 46938507489 No Longer Active Renetta Ryan APRN Active ZITHROMAX 250 MG TAB 2 po today, then 1 po q days 2-5 AZITHROMYCIN 40285222143 No Longer Active Jani Marrero MD Active IBUPROFEN 800 MG TABS 1 tab PO TID IBUPROFEN 31396824799 Active Jani Marrero MD Active WELLBUTRIN SR 100 MG ORAL [id number] 1 TAB PO DAILY BUPROPION HCL 50171156171 Active Jani Marrero MD Active AMITRIPTYLINE HCL 50 MG TAB 1 po q hs for sleep AMITRIPTYLINE HCL 93797160228 No Longer Active Jani Marrero MD Active PROMETHAZINE HCL 25 MG TABS 1 four times a day as needed for vomiting PROMETHAZINE HCL 86269010605 No Longer Active Jani Marrero MD Active AMOXICILLIN 500 MG TABS 2 tabs twice a day for 10 days AMOXICILLIN 78327299136 No Longer Active Jani Marrero MD Active SEROQUEL 200 MG ORAL TABS Take 1 tablet at hs QUETIAPINE FUMARATE 19145559691 No Longer Active Jani Marrero MD Active FETZIMA 40 MG ORAL [id number] LEVOMILNACIPRAN HCL 80354504413 No Longer Active Jani Marrero MD Active PROAIR HFA 108 (90 BASE) MCG/ACT AERS 2 puffs four times a day as needed 2011 ALBUTEROL SULFATE 30407679312 No Longer Active Alondra Denton MD Active IBUPROFEN 600 MG TAB 1 tablet three times a day as needed IBUPROFEN 56833546337 No Longer Active Alondra Denton MD Active LATUDA 20 MG TABS 1 tab at at night with meal LURASIDONE HCL 14767581569 No Longer Active Alondra Denton MD Active CYCLOBENZAPRINE HCL 10 MG TABS 1/2 to 1 tablet every 4 hours CYCLOBENZAPRINE HCL 69545551827 No Longer Active Alondra Denton MD Active CYCLOBENZAPRINE HCL 10 MG TABS 1/2 to 1 tablet by mouth three times daily as needed for muscle spasm/pain CYCLOBENZAPRINE HCL 55826727493 No Longer Active Alondra Denton MD Active SUPRAX 400 MG CAPS Take one tablet twice daily for 7 days CEFIXIME 79500115951 No Longer Active Shikha Yokum ART SUPERVISOR Active TESSALON PERLES 100 MG CAP 1 tablet by mouth 3 times daily 01/20 BENZONATATE 56658914468 No Longer Active Shikha Yokum ART SUPERVISOR Active HYDROXYZINE HCL 10 MG TABS 1 to 2 three times a day as needed for itching HYDROXYZINE HCL 00187937475 No Longer Active Shikha Yokum ART SUPERVISOR Active CYCLOBENZAPRINE HCL 10 MG TABS 1 three times a day as needed for back spasm CYCLOBENZAPRINE HCL 04439841207 No Longer Active Shikha Yokum ART SUPERVISOR Active SEROQUEL 200 MG TABS 1 tablet at bedtime. QUETIAPINE FUMARATE 28884626892 No Longer Active Shikha Yokum ART SUPERVISOR Active BACTRIM DS 800-160 MG TAB 1 tab by mouth twice daily TRIMETHOPRIM-SULFAMETHOXAZOLE 16056282180 No Longer Active Shikha Yokjose SORIANO Active STROMECTOL 3 MG TABS 5 tablets by mouth one time on an empty stomach, may repeat in 2 weeks if needed IVERMECTIN 08847811434 No Longer Active Shikha Yokum ART SUPERVISOR Active PERMETHRIN 5 % CREA apply neck to toes tonight and then rinse off in morning. repeat at 7 days PERMETHRIN 69814366457 No Longer Active Andrei Nichols MD Active MEDROL (NISA) 4 MG TABS 6 tabs on day 1, 5 tabs on day 2, 4 tabs on day 3, 3 tabs on day 4, 2 tabs on day 5, 1 tab on day 6 METHYLPREDNISOLONE 61726366452 No Longer Active Prisca Lockwood MD PhD Active AZITHROMYCIN 250 MG TABS 2 po qd x 1 day, then 1 po qd x 4 days AZITHROMYCIN 18771301921 No Longer Active Prisca Lockwood MD PhD Active CELEXA 20 MG TABS Take 1.5 tablets daily CITALOPRAM HYDROBROMIDE 54371555126 No Longer Active Prisca Lockwood MD PhD Active LOMOTIL 2.5-0.025 MG TAB 1 to 2 four times a day as needed for diarrhea 01/21 DIPHENOXYLATE-ATROPINE 75846205864 No Longer Active Prisca Lockwood MD PhD Active TAMIFLU 75 MG CAPS 1 bid x 5 days OSELTAMIVIR PHOSPHATE 31345675302 No Longer Active Rosalie Boyd APRN Active ZITHROMAX 250 MG TAB 2 po today, then 1 po q days 2-5 AZITHROMYCIN 02607999452 No Longer Active Rosalie Boyd APRN Active STROMECTOL 3 MG TABS 6 pills by mouth x 1; repeat in 10 days 2012 IVERMECTIN 73787533691 No Longer Active Rosalie Boyd APRN Active TYLENOL WITH CODEINE #3 300-30 MG TABS ONE TABLET FOUR TIMES A DAY NEEDED for pain or cough ACETAMINOPHEN-CODEINE 54773230804 No Longer Active Rosalie Boyd APRN Active GUAIFENESIN-CODEINE 100-10 MG/5ML SYRP 1 tsp PO q6h PRN cough GUAIFENESIN-CODEINE 18403764840 No Longer Active Rosalie Boyd APRN Active KEFLEX 500 MG CAP 1 po qid CEPHALEXIN 30270857060 No Longer Active Rosalie Boyd APRN Active GUAIFENESIN-CODEINE 100-10 MG/5ML SYRP 1 tsp PO q6h PRN cough GUAIFENESIN-CODEINE 28092793063 No Longer Active Rosalie Boyd APRN Active PROMETHAZINE HCL 25 MG TABS 1 four times a day as needed for nausea/vomiting PROMETHAZINE HCL 04275068786 No Longer Active Rosalie Boyd APRN Active LAMISIL AT 1 % CREA apply bid to rash TERBINAFINE HCL 77342376631 No Longer Active Andrei Nichols MD Active AMOXICILLIN 400 MG/5ML SUSR 6ml three times a day for 10 days AMOXICILLIN 90553091009 No Longer Active Andrei Nichols MD Active PROMETHAZINE HCL 25 MG TABS take 1 po Q 8 hours prn nausea and vomiting 12/11 PROMETHAZINE HCL 02058997450 No Longer Active Andrie Nichols MD Active BACTROBAN 2 % OINTMENT Apply bid to affected area MUPIROCIN 38034421550 No Longer Active Andrei Nichols MD Active GUAIFENESIN-CODEINE 100-10 MG/5ML SYRP 1 tsp PO q6h PRN cough GUAIFENESIN-CODEINE 15160927255 No Longer Active Andrei Nichols MD Active BACTRIM DS 800-160 MG TABS 1 po BID x 10 days SULFAMETHOXAZOLE-TRIMETHOPRIM 18174406633 No Longer Active Rosalie Boyd APRN Active GUAIFENESIN-CODEINE 100-10 MG/5ML SYRP 1-2 tsp PO q6h PRN cough GUAIFENESIN-CODEINE 71691808525 No Longer Active Giovany URBINA Active PREDNISONE 20 MG TABS 1 tablet by mouth twice daily for 2 days, then 1 daily for 2 days PREDNISONE 39593903558 No Longer Active Giovany URBINA Active HYDROCODONE-ACETAMINOPHEN 5-325 MG TABS 1/2 to 1 po q 4 hours prn pain 11/13 HYDROCODONE-ACETAMINOPHEN 23092751999 No Longer Active Rosalie Boyd APRN Active PENICILLIN V POTASSIUM 500 MG TABS 1 TID PENICILLIN V POTASSIUM 21289336333 No Longer Active Andrei Nichols MD Active SEROQUEL 50 MG TABS 1 tablet at HS QUETIAPINE FUMARATE 98600430743 No Longer Active Andrei Nichols MD Active SEROQUEL 100 MG TABS 1 tablet at HS QUETIAPINE FUMARATE 62919003637 No Longer Active Andrei Nichols MD Active TRIAMCINOLONE ACETONIDE 0.1 % CREA apply three times daily prn rash TRIAMCINOLONE ACETONIDE 57536724786 No Longer Active Andrei Nichols MD Active AMOXICILLIN 500 MG TABS take one tab po tid x 10 days AMOXICILLIN 82546549746 No Longer Active Andrei Nichols MD Active CELEXA 20 MG TABS 1and 1/2 tablets by mouth daily CITALOPRAM HYDROBROMIDE 90848324730 No Longer Active Ary URBINA Active FLEXERIL 10 MG TAB 1/2 to one tablet every 12 hours as needed CYCLOBENZAPRINE HCL 40981535651 No Longer Active Ary URBINA Active CLONAZEPAM 1 MG TABS take at bedtime CLONAZEPAM 51824470245 No Longer Active Ary URBINA Active PERMETHRIN 5 % CREA applyhead to toes tonight and then rinse off in 18 hours. repeat at 7 days if needed. PERMETHRIN 73058164544 No Longer Active Ary URBINA Active AMOXICILLIN 500 MG CAPS 2 po BID x 10 days AMOXICILLIN 00151815862 No Longer Active Andrei Nichols MD Active TYLENOL WITH CODEINE #3 300-30 MG TABS 1 to 2 four times a day as needed for pain ACETAMINOPHEN-CODEINE 54374282823 No Longer Active Reta Hampton Active PREDNISONE 20 MG TAB 2 tabs daily for 5 days, then 1 daily for 5 days PREDNISONE 04367170596 No Longer Active Reta Memo Active LOMOTIL 2.5-0.025 MG TAB 1 to 2 four times a day as needed for diarrhea 05/28 DIPHENOXYLATE-ATROPINE 99191662723 No Longer Active Reta Hampotn Active ALPRAZOLAM 1 MG TABS 1 tab tid ALPRAZOLAM 59861463223 No Longer Active Reta Hampton Active AMOXICILLIN 500 MG CAPS 2 po BID x 10 days AMOXICILLIN 13883825149 No Longer Active Andrei Nichols MD Active AMOXICILLIN 500 MG TABS Take one tab by mouth 3 times daily, morning, afternoon and evening for 7 days. AMOXICILLIN 16950592448 No Longer Active Virginia Alejandra RN Active VICODIN 5-300 MG TABS one tab PO Q 6 hours PRN pain HYDROCODONE-ACETAMINOPHEN 47880969482 No Longer Active Virginia Alejandra RN Active FLAGYL 500 MG TABS four tabs PO one time METRONIDAZOLE 61950955510 No Longer Active Alondra Denton MD Active MELOXICAM 15 MG TABS 1 po q day for pain with food MELOXICAM 47072807764 No Longer Active Alondra Denton MD Active AMOXICILLIN 400 MG/5ML SUSR 5ml po TID x 10 days AMOXICILLIN 01298809005 No Longer Active Jani Marrero MD Active NIX CREME RINSE 1 % LIQD apply as directed tonight, repeat at 7 days PERMETHRIN 81133093657 No Longer Active Corky Mckeon DO Active QVAR 40 MCG/ACT AERS one puff three times a day as needed BECLOMETHASONE DIPROPIONATE 85072074393 No Longer Active Andrei Nichols MD Active METHOCARBAMOL 500 MG TABS 1 to 2 qid prn back spasm METHOCARBAMOL 54781534491 No Longer Active Andrei Nichols MD Active VISTARIL 25 MG CAPS 1-2 tablets three times a day as needed HYDROXYZINE PAMOATE 47031096839 No Longer Active Andrei Nichols MD Active SEROQUEL 100 MG TABS 1/2 TABLET at hs QUETIAPINE FUMARATE 61203789634 No Longer Active Aicha Rizzo RN Active BACTRIM DS 800-160 MG TAB 1 tab by mouth twice daily TRIMETHOPRIM-SULFAMETHOXAZOLE 16899047915 No Longer Active Prisca Lockwood MD PhD Active CYCLOBENZAPRINE HCL 10 MG TABS TAKE 1/2 - 1 TAB EVERY 12 HOURS NEEDED 2010 CYCLOBENZAPRINE HCL 80418782526 No Longer Active Andrei Nichols MD Active CYCLOBENZAPRINE HCL 10 MG TABS TAKE 1/2 - 1 TAB EVERY 12 HOURS NEEDED 2010 CYCLOBENZAPRINE HCL 10 MG TABS 098098 CYCLOBENZAPRINE HCL Inactive SEROQUEL 100 MG TABS 1/2 TABLET at hs SEROQUEL 100 MG TABS 064099 QUETIAPINE FUMARATE Inactive VISTARIL 25 MG CAPS 1-2 tablets three times a day as needed VISTARIL 25 MG CAPS 648659 HYDROXYZINE PAMOATE Inactive METHOCARBAMOL 500 MG TABS 1 to 2 qid prn back spasm METHOCARBAMOL 500 MG TABS 704757 METHOCARBAMOL Inactive QVAR 40 MCG/ACT AERS one puff three times a day as needed QVAR 40 MCG/ACT AERS BECLOMETHASONE DIPROPIONATE Inactive NIX CREME RINSE 1 % LIQD apply as directed tonight, repeat at 7 days NIX CREME RINSE 1 % LIQD PERMETHRIN Inactive MELOXICAM 15 MG TABS 1 po q day for pain with food MELOXICAM 15 MG TABS 596988 MELOXICAM Inactive ALPRAZOLAM 1 MG TABS 1 tab tid ALPRAZOLAM 1 MG TABS 935301 ALPRAZOLAM Inactive LOMOTIL 2.5-0.025 MG TAB 1 to 2 four times a day as needed for diarrhea 05/28 LOMOTIL 2.5-0.025 MG TAB 5907662 DIPHENOXYLATE-ATROPINE Inactive PREDNISONE 20 MG TAB 2 tabs daily for 5 days, then 1 daily for 5 days PREDNISONE 20 MG TAB 616642 PREDNISONE Inactive TYLENOL WITH CODEINE #3 300-30 MG TABS 1 to 2 four times a day as needed for pain TYLENOL WITH CODEINE #3 300-30 MG TABS ACETAMINOPHEN-CODEINE Inactive PERMETHRIN 5 % CREA applyhead to toes tonight and then rinse off in 18 hours. repeat at 7 days if needed. PERMETHRIN 5 % CREA 715470 PERMETHRIN Inactive CLONAZEPAM 1 MG TABS take at bedtime CLONAZEPAM 1 MG TABS 061241 CLONAZEPAM Inactive FLEXERIL 10 MG TAB 1/2 to one tablet every 12 hours as needed FLEXERIL 10 MG TAB CYCLOBENZAPRINE HCL Inactive CELEXA 20 MG TABS 1and 1/2 tablets by mouth daily CELEXA 20 MG TABS 095760 CITALOPRAM HYDROBROMIDE Inactive AMOXICILLIN 500 MG TABS take one tab po tid x 10 days AMOXICILLIN 500 MG TABS 877080 AMOXICILLIN Inactive TRIAMCINOLONE ACETONIDE 0.1 % CREA apply three times daily prn rash TRIAMCINOLONE ACETONIDE 0.1 % CREA 1808010 TRIAMCINOLONE ACETONIDE Inactive SEROQUEL 100 MG TABS 1 tablet at HS SEROQUEL 100 MG TABS 832658 QUETIAPINE FUMARATE Inactive SEROQUEL 50 MG TABS 1 tablet at HS SEROQUEL 50 MG TABS 699137 QUETIAPINE FUMARATE Inactive HYDROCODONE-ACETAMINOPHEN 5-325 MG TABS 1/2 to 1 po q 4 hours prn pain 11/13 HYDROCODONE-ACETAMINOPHEN 5-325 MG TABS 452444 HYDROCODONE- ACETAMINOPHEN Inactive PREDNISONE 20 MG TABS 1 tablet by mouth twice daily for 2 days, then 1 daily for 2 days PREDNISONE 20 MG TABS 803110 PREDNISONE Inactive GUAIFENESIN-CODEINE 100-10 MG/5ML SYRP 1-2 tsp PO q6h PRN cough GUAIFENESIN-CODEINE 100-10 MG/5ML SYRP 226274 GUAIFENESIN-CODEINE Inactive GUAIFENESIN-CODEINE 100-10 MG/5ML SYRP 1 tsp PO q6h PRN cough GUAIFENESIN-CODEINE 100-10 MG/5ML SYRP 112203 GUAIFENESIN-CODEINE Inactive BACTROBAN 2 % OINTMENT Apply bid to affected area BACTROBAN 2 % OINTMENT 330564 MUPIROCIN Inactive PROMETHAZINE HCL 25 MG TABS take 1 po Q 8 hours prn nausea and vomiting 12/11 PROMETHAZINE HCL 25 MG TABS 689559 PROMETHAZINE HCL Inactive AMOXICILLIN 400 MG/5ML SUSR 6ml three times a day for 10 days AMOXICILLIN 400 MG/5ML SUSR 250920 AMOXICILLIN Inactive LAMISIL AT 1 % CREA apply bid to rash LAMISIL AT 1 % CREA 397580 TERBINAFINE HCL Inactive PROMETHAZINE HCL 25 MG TABS 1 four times a day as needed for nausea/vomiting PROMETHAZINE HCL 25 MG TABS 851620 PROMETHAZINE HCL Inactive GUAIFENESIN-CODEINE 100-10 MG/5ML SYRP 1 tsp PO q6h PRN cough GUAIFENESIN-CODEINE 100-10 MG/5ML SYRP 782217 GUAIFENESIN-CODEINE Inactive KEFLEX 500 MG CAP 1 po qid KEFLEX 500 MG CAP 520264 CEPHALEXIN Inactive GUAIFENESIN-CODEINE 100-10 MG/5ML SYRP 1 tsp PO q6h PRN cough GUAIFENESIN-CODEINE 100-10 MG/5ML SYRP 871483 GUAIFENESIN-CODEINE Inactive TYLENOL WITH CODEINE #3 300-30 MG TABS ONE TABLET FOUR TIMES A DAY NEEDED for pain or cough TYLENOL WITH CODEINE #3 300-30 MG TABS ACETAMINOPHEN-CODEINE Inactive STROMECTOL 3 MG TABS 6 pills by mouth x 1; repeat in 10 days 2012 STROMECTOL 3 MG TABS 988164 IVERMECTIN Inactive LOMOTIL 2.5-0.025 MG TAB 1 to 2 four times a day as needed for diarrhea 01/21 LOMOTIL 2.5-0.025 MG TAB 8081103 DIPHENOXYLATE-ATROPINE Inactive CELEXA 20 MG TABS Take 1.5 tablets daily CELEXA 20 MG TABS 843873 CITALOPRAM HYDROBROMIDE Inactive PERMETHRIN 5 % CREA apply neck to toes tonight and then rinse off in morning. repeat at 7 days PERMETHRIN 5 % CREA 410621 PERMETHRIN Inactive STROMECTOL 3 MG TABS 5 tablets by mouth one time on an empty stomach, may repeat in 2 weeks if needed STROMECTOL 3 MG TABS 731232 IVERMECTIN Inactive BACTRIM DS 800-160 MG TAB 1 tab by mouth twice daily BACTRIM DS 800-160 MG TAB 761940 TRIMETHOPRIM-SULFAMETHOXAZOLE Inactive SEROQUEL 200 MG TABS 1 tablet at bedtime. SEROQUEL 200 MG TABS 931484 QUETIAPINE FUMARATE Inactive CYCLOBENZAPRINE HCL 10 MG TABS 1 three times a day as needed for back spasm CYCLOBENZAPRINE HCL 10 MG TABS 251328 CYCLOBENZAPRINE HCL Inactive HYDROXYZINE HCL 10 MG TABS 1 to 2 three times a day as needed for itching HYDROXYZINE HCL 10 MG TABS 647637 HYDROXYZINE HCL Inactive TESSALON PERLES 100 MG CAP 1 tablet by mouth 3 times daily 01/20 TESSALON PERLES 100 MG CAP 000793 BENZONATATE Inactive CYCLOBENZAPRINE HCL 10 MG TABS 1/2 to 1 tablet by mouth three times daily as needed for muscle spasm/pain CYCLOBENZAPRINE HCL 10 MG TABS 522237 CYCLOBENZAPRINE HCL Inactive CYCLOBENZAPRINE HCL 10 MG TABS 1/2 to 1 tablet every 4 hours CYCLOBENZAPRINE HCL 10 MG TABS 714103 CYCLOBENZAPRINE HCL Inactive LATUDA 20 MG TABS 1 tab at at night with meal LATUDA 20 MG TABS LURASIDONE HCL Inactive IBUPROFEN 600 MG TAB 1 tablet three times a day as needed IBUPROFEN 600 MG TAB 579815 IBUPROFEN Inactive PROAIR HFA 108 (90 BASE) MCG/ACT AERS 2 puffs four times a day as needed 2011 PROAIR HFA 108 (90 BASE) MCG/ACT AERS ALBUTEROL SULFATE Inactive FETZIMA 40 MG ORAL [id number] FETZIMA 40 MG ORAL [id number] LEVOMILNACIPRAN HCL Inactive SEROQUEL 200 MG ORAL TABS Take 1 tablet at hs SEROQUEL 200 MG ORAL TABS 179970 QUETIAPINE FUMARATE Inactive AMOXICILLIN 500 MG TABS 2 tabs twice a day for 10 days AMOXICILLIN 500 MG TABS 224654 AMOXICILLIN Inactive PROMETHAZINE HCL 25 MG TABS 1 four times a day as needed for vomiting PROMETHAZINE HCL 25 MG TABS 623793 PROMETHAZINE HCL Inactive KLONOPIN 1 MG TABS 1 tablet TID KLONOPIN 1 MG TABS 131953 CLONAZEPAM Inactive PROAIR HFA 108 (90 BASE) MCG/ACT AERS 2 puffs four times a day as needed 2015 PROAIR HFA 108 (90 BASE) MCG/ACT AERS ALBUTEROL SULFATE Inactive BACTRIM DS 800-160 MG TAB 1 tab by mouth twice daily BACTRIM DS 800-160 MG TAB 944702 TRIMETHOPRIM-SULFAMETHOXAZOLE Inactive AMOXICILLIN 400 MG/5ML SUSR 5ml po TID x 10 days AMOXICILLIN 400 MG/5ML SUSR 747554 AMOXICILLIN Inactive FLAGYL 500 MG TABS four tabs PO one time FLAGYL 500 MG TABS 048435 METRONIDAZOLE Inactive AMOXICILLIN 500 MG TABS Take one tab by mouth 3 times daily, morning, afternoon and evening for 7 days. AMOXICILLIN 500 MG TABS 204608 AMOXICILLIN Inactive AMOXICILLIN 500 MG CAPS 2 po BID x 10 days AMOXICILLIN 500 MG CAPS 909696 AMOXICILLIN Inactive AMOXICILLIN 500 MG CAPS 2 po BID x 10 days AMOXICILLIN 500 MG CAPS 758377 AMOXICILLIN Inactive PENICILLIN V POTASSIUM 500 MG TABS 1 TID PENICILLIN V POTASSIUM 500 MG TABS 718300 PENICILLIN V POTASSIUM Inactive BACTRIM DS 800-160 MG TABS 1 po BID x 10 days BACTRIM DS 800-160 MG TABS 798856 SULFAMETHOXAZOLE-TRIMETHOPRIM Inactive ZITHROMAX 250 MG TAB 2 po today, then 1 po q days 2-5 ZITHROMAX 250 MG TAB 0710983 AZITHROMYCIN Inactive TAMIFLU 75 MG CAPS 1 bid x 5 days TAMIFLU 75 MG CAPS 064455 OSELTAMIVIR PHOSPHATE Inactive AZITHROMYCIN 250 MG TABS 2 po qd x 1 day, then 1 po qd x 4 days AZITHROMYCIN 250 MG TABS 6967216 AZITHROMYCIN Inactive MEDROL (NISA) 4 MG TABS 6 tabs on day 1, 5 tabs on day 2, 4 tabs on day 3, 3 tabs on day 4, 2 tabs on day 5, 1 tab on day 6 MEDROL ( NISA) 4 MG TABS 246775 METHYLPREDNISOLONE Inactive SUPRAX 400 MG CAPS Take one tablet twice daily for 7 days SUPRAX 400 MG CAPS CEFIXIME Inactive AMITRIPTYLINE HCL 50 MG TAB 1 po q hs for sleep AMITRIPTYLINE HCL 50 MG TAB 855273 AMITRIPTYLINE HCL Inactive ZITHROMAX 250 MG TAB 2 po today, then 1 po q days 2-5 ZITHROMAX 250 MG TAB 3849398 AZITHROMYCIN Inactive Immunizations Vaccine Administration Date Value Standard Description Seasonal influenza vaccine, injectable, containing preservative, for > 3 years old (Afluria, FluLaval, Fluzone, Fluvirin, Fluarix, Agriflu(>=18 yo)) Fluzone (>3 yrs.) [[id number]] Influenza, seasonal, injectable pneumococcal immunization administered Pneumovax 23 [CVX33] pneumococcal polysaccharide vaccine, 23 valent Seasonal influenza vaccine, injectable, containing preservative, for > 3 years old (Afluria, FluLaval, Fluzone, Fluvirin, Fluarix, Agriflu(>=18 yo)) Fluzone (>3 yrs.) [[id number]] Influenza, seasonal, injectable Seasonal influenza vaccine, injectable, containing preservative, for > 3 years old (Afluria, FluLaval, Fluzone, Fluvirin, Fluarix, Agriflu(>=18 yo)) Fluzone (>3 yrs.) [[id number]] Influenza, seasonal, injectable hepatitis B vaccine #1 [...] Panel - Chemistry sodium, serum 144 mmol/L 879-075 3924/06/08 potassium, serum 4.3 mmol/L 3.5-5.2 chloride, serum 104 mmol/L 98-107 carbon dioxide, venous blood 28.2 mmol/L 21.0-32.0 blood glucose 86 mg/dL 65-110 calcium, serum 9.7 mg/dL 8.5-10.1 urea nitrogen, blood 13 mg/dL 7-18 creatinine, serum 0.66 mg/dL 0.55-1.30 Lab Report: [id number] - Chemistry hemoglobin A1C, blood, as % of total hemoglobin 5.3 % 4.3-6.0 Encounters Code Encounter Date Provider Facility CPT-68538 Level 4 Est. Patient 14:18:58 CDT Corky Mckeon DO [facility] CPT-77333 Level 3 Est. Patient 16:47:47 CDT Renetta Ryan [facility] CPT-03741 Level 3 Est. Patient 11:04:11 COMPUTER REPAIR ENGINEER Jani Marrero MD [facility] CPT-59537 Level 3 Est. Patient 12:02:27 COMPUTER REPAIR ENGINEER Andrei Nichols MD [facility] CPT-10962 Level 3 Est. Patient 12:47:17 COMPUTER REPAIR ENGINEER Andrei Nichols MD [facility] CPT-84594 Level 3 Est. Patient 14:51:20 COMPUTER REPAIR ENGINEER Shikha Randolph [facility] CPT-58544 Level 3 Est. Patient 10:42:38 CDT Shikha Randolph [facility] CPT-29296 Level 3 Est. Patient 18:20:39 CDT Prisca Lockwood MD PhD [facility]-96380 Level 3 Est. Patient 16:42:47 COMPUTER REPAIR ENGINEER Rosalie Boyd [facility] CPT-00519 Level 3 Est. Patient 14:34:36 COMPUTER REPAIR ENGINEER Rosalie Boyd [facility] CPT-51005 Level 4 Est. Patient 10:23:07 COMPUTER REPAIR ENGINEER Andrei Nichols MD [facility]-57674 Level 3 Est. Patient 16:47:31 COMPUTER REPAIR ENGINEER Andrei Nichols MD [facility]-09549 Level 3 Est. Patient 11:59:14 CDT Rosalie Boyd [facility]-03084 Level 3 Est. Patient 15:30:34 CDT Giovany URBINA [facility]-81628 Level 3 Est. Patient 11:03:03 CDT Rosalie Boyd [facility]-68653 Level 3 Est. Patient 11:08:07 CDT Rosalie Boyd [facility] CPT-37336 Level 3 Est. Patient 14:07:32 CDT Andrei Nichols MD [facility]-40413 Level 3 Est. Patient 17:08:28 CDT Andrei Nichols MD [facility]-71576 Level 3 Est. Patient 13:10:13 CDT Jani Marrero MD [facility]-55298 Level 3 Est. Patient 11:27:12 CDT Jani Marrero MD [facility]-10986 Level 3 Est. Patient 13:44:42 CDT Andrei Nichols MD [facility]-00412 Level 3 Est. Patient 12:34:57 COMPUTER REPAIR ENGINEER Andrei Nichols MD [facility]-54197 Level 3 Est. Patient 15:30:06 CDT Jani Marrero MD [facility] CPT-98857 Level 3 Est. Patient 21:59:00 CDT Corky Mckeon DO [facility] CPT-70431 Level 3 Est. Patient 17:12:49 CDT Andrei Nichols MD [facility] CPT-11075 Level 4 Est. Patient 12:27:45 COMPUTER REPAIR ENGINEER Andrei Nichols MD [facility] CPT-15785 Level 3 Est. 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
--- OUTSIDE RECORDS SUMMARY | 2017-01-02 18:29 | XMS REPORT ---
Author Author [facility] Medical Staff Organization [facility] Address [address], [place] [id number] Phone [phone] Care Team Providers Care Beauty Culturist Name Role Phone FELIPE MONROE MD PP [phone] Summary purpose TRANSITION OF CARE AUTO GENERATION Chief Complaint and Reason for Visit Admit Diagnosis 1 SKIN DISORDER NOS Problem list No authorized problems tracked for [...] Code Type Description Date Performed Performing Physician 10521 CPT-4 EMERGENCY DEPT VISIT 11-22-2014 JOSE MIGUEL WEEMS 16834 CPT-4 EMERGENCY DEPT VISIT 11-22-2014 JOSE MIGUEL WEEMS Functional status Functional Status Finding Observation Time Abdomen Appearance round [id number] Abdomen soft :45 Bowel Sounds present [id number]:45 Kapoor no :45 Urination normal 57-18-105440:45 Quality sym/unlabored :45 Cough absent 49-92-968014:45 Secretions no :45 Breath Sounds RUL clear :45 Breath Sounds RML clear :45 Breath Sounds RLL clear :45 Breath Sounds YANDY clear :45 Breath Sounds LLL clear :45 Airway natural 07-86-536995:45 Chest Tube no :45 Oxygen no :56 Temp >100.4 no :45 Temp <96.8 no :45 Chills with rigors no :45 HR > 90bpm no :45 Respirations > [...] Oxygen Saturation 99% :56 BP Systolic 124mmHg :56 BP Diastolic 78mmHg 56-46-579462:56 Temperature 98.0F 18-94-870965:56 Weight 174LB 41-59-424434:32 Social history Type Value Smoking Status CURRENT EVERY DAY SMOKER Treatment Plan No treatment plan text is available for this visit. Hospital discharge instructions Dismissal Condition good Disposition on DC home DC Inst/Educ Give yes Med/Side Effects Rev yes
[2017-01-02] MEDS ORDERED: KETOROLAC 60 MG/2 ML VIAL IM ONE (18:30)
--- OUTSIDE RECORDS SUMMARY | 2017-01-02 18:30 | XMS REPORT ---
Author Author RENETTA DASILVA Organization [employer] Address Unknown Phone Unavailable Care Team Providers Care Tobacco Feeder Catcher Name Role Phone RENETTA DASILVA CP Unavailable Allergies, Adverse Reactions, Alerts Substance Reaction Event Type N.K.D.A. Info Not Available Non Drug Allergy Problems Problem Type Condition Code Onset Dates Condition Status Assessment Nonintractable headache, unspecified chronicity pattern, unspecified headache type R51 Active Medications Medication Code System Code Instructions Start Date End Date Status Dosage Ibuprofen [facility] [address]-50 400 MG Orally Three times a day 1 tablet Tylenol Extra Strength [facility] [address]-18 500 MG Orally every 6 hrs 2 tablets as needed Procedures Procedure Coding System Code Date TORADOL (IM) 60 MG/2ML (UP TO 15 MG) CPT-4 J1885 Dec 09, 2015 THER/PROPH/DIAG INJ, SC/IM CPT-4 36483 Dec 09, 2015 Office Visit, New Pt., Level 3 CPT-4 63927 Dec 09, 2015 ZOFRAN (IM) 2 MG/ML (PER 1 MG) 40 MG/20 ML CPT-4 J2405 Dec 09, 2015 Vital Signs Date/Time: Dec 09, 2015 Cardiac Monitoring Heart Rate 76 bpm Weight 218.0 lbs Height 64.5 in BMI 36.84 Index Blood Pressure Diastolic 80 mmHg Blood Pressure Systolic 112 mmHg Results No Known Results Summary Purpose [employer] Submission
--- NOTE | 2017-01-02 18:31 | ED Lower Extremity ---
General Stated Complaint: LT KNEE INJ Source: patient Exam Limitations: no limitations History of Present Illness Time seen by provider: 18:30 Initial Comments To ER with reports of a left knee injury. She states that she was just standing when she twisted and felt a popping sensation in her left knee about one hour ago. This caused immense pain. She has a history of a ligamentous injury to the left knee about a year ago she states. She never had this intervened on. She works at [employer] and does not believe that she could stand due to the pain. This did not cause her to fall and there was no direct injury to the knee from an outside force. Onset: just prior to arrival Severity: moderate Pain/Injury Location: left knee Method of Injury: twisted Modifying Factors: Worse With Movement Allergies and Home Medications Allergies Coded Allergies: No Known Drug Allergies (Unverified , 01/03/16) Constitutional: see HPI EENTM: see HPI Respiratory: no symptoms reported Cardiovascular: no symptoms reported Genitourinary: no symptoms reported Musculoskeletal: see HPI Skin: no symptoms reported Psychiatric/Neurological: No Symptoms Reported Past Muwpdyh-Cazfhv-Ajeuxu Hx Patient Social History Recent Foreign Travel: No Contact w/Someone Who Travel: No Physical Exam Vital Signs Capillary Refill : General Appearance: WD/WN, no apparent distress HEENT: PERRL/EOMI, normal ENT inspection Neck: non-tender, full range of motion Respiratory: no respiratory distress, no accessory muscle use Gastrointestinal: non tender, soft Hips: bilateral hip non-tender, bilateral hip normal inspection, bilateral hip normal range of motion Legs: bilateral leg non-tender, bilateral leg normal inspection, bilateral leg normal range of motion Knees: left knee pain, left knee soft tissue tenderness, left knee other (due to the body habitus I am unable to tell if there is an effusion present. However, there is no erythema or ecchymosis. She is ambulatory to room 9.) Ankles: bilateral ankle non-tender, bilateral ankle normal inspection, bilateral ankle normal range of motion Feet: bilateral foot non-tender, bilateral foot normal inspection, bilateral foot normal range of motion Neurologic/Psychiatric: alert, normal mood/affect, oriented x 3 Skin: normal color, warm/dry Progress/Results/Core Measures Results/Orders My Orders Orders - ADAM LE APRN Knee, Left, 3 Views (01/02/17 18:29) Ketorolac Injection (Toradol Injection) (01/02/17 18:30) Crutches (01/02/17 18:29) Departure Impression Impression: Primary Impression: Internal derangement of knee Disposition: 01 HOME, SELF-CARE Condition: Stable Departure-Patient Inst. Decision time for Depature: 18:32 Referrals: [facility] (PCP) Primary Care Physician CRISTINO RUSH APRN (Family) Primary Care Physician Patient Instructions: Knee Pain Add. Discharge Instructions: 1. Wear the Emil wrap to your knee. 2. Use an ice pack at 30 minutes to one hour intervals for the next 1-2 days 3. Pain medication as directed 4. Use the crutches as needed for pain with walking. You should also follow- up with your doctor later this week for recheck to discuss further imaging such as an MRI of the knee. Scripts Hydrocodone/Acetaminophen (Blue 5-325 Tablet) 1 Each Tablet 1 EACH PO Q4H Y for PAIN-SEVERE TO BREAKTHROUGH, #10 TAB Prov: ADAM LE APRN 01/02/17 Naproxen (Naprosyn) 500 Mg Tablet 500 MG PO BID Y for PAIN-MODERATE TO SEVERE, #30 TAB Prov: ADAM LE APRN 01/02/17 Work/School Note: Work Release Form Date Seen in the Emergency Department: Jan 02, 2017 Return to Work: Jan 05, 2017 ADAM LE APRN Jan 02, 2017 18:31
--- OUTSIDE RECORDS SUMMARY | 2017-01-02 18:31 | XMS REPORT | Clinical Summary ---
Author Author Admin, JAVIER Organization [facility] Address Unknown Phone Unavailable Allergies, Adverse Reactions, Alerts Allergy Name Reaction Description Start Date Severity Status Provider NKDA Critical Active Shikha Randolph APRN Conditions or Problems Problem Name Problem Code [...] PhD Diarrhea Dental caries 521.00 Resolved Shikha Yokum MOTOR VEHICLE REPRESENTATIVE Dental caries, unspecified Tooth pain 525.9 Resolved Prisca Lockwood MD PhD Unspecified disorder of the teeth and supporting structures Head lice 132.0 Resolved Prisca Lockwood MD PhD Pediculus capitis [head louse] Upper respiratory infection 465.9 Resolved Prisca Lockwood MD PhD Acute upper respiratory infections of unspecified site Sinusitis, frontal, acute 461.1 Resolved Shikha Yokum MOTOR VEHICLE REPRESENTATIVE Acute frontal sinusitis Pharyngitis 462 Resolved Shikha Yokum MOTOR VEHICLE REPRESENTATIVE Acute pharyngitis Scabies 133.0 Resolved Shikha Yokum MOTOR VEHICLE REPRESENTATIVE Scabies Folliculitis 704.8 Resolved Shikha Yokum MOTOR VEHICLE REPRESENTATIVE Other specified diseases of hair and hair follicles Cough 786.2 Active Shikha Yokum MOTOR VEHICLE REPRESENTATIVE Cough Dysuria 788.1 Active Shikha Randolph MOTOR VEHICLE REPRESENTATIVE Dysuria CONTRACEPTION ICD-V25.09 Inactive Shikha Randolph APRN PEDICULUS CAPITIS ICD-132.0 Inactive Andrei Nichols MD [...] UNSPECIFIED DISORDER TEETH&SUPPORTING STRUCTURES ICD-525.9 12/29 Inactive Shikhaciro Randolph MOTOR VEHICLE REPRESENTATIVE PHARYNGITIS-ACUTE ICD-462 Inactive Rosalie Boyd MOTOR VEHICLE REPRESENTATIVE DIARRHEA ICD-787.91 Inactive Andrei Nichols MD SHOULDER PAIN ICD-719.41 Inactive Shikha Tomasa MOTOR VEHICLE REPRESENTATIVE NAUSEA AND VOMITING ICD-787.01 Inactive Andrei Nichols [...] Lockwood MD PhD Dental caries ICD-521.00 Inactive Shikhaciro Randolph MOTOR VEHICLE REPRESENTATIVE Tooth pain ICD-525.9 Inactive Prisca Lockwood MD PhD Head lice ICD-132.0 Inactive Prisca Lockwood MD PhD Upper respiratory infection ICD-465.9 Inactive Prisca Lockwood MD PhD Sinusitis, frontal, acute ICD-461.1 Inactive Shikha Yokum MOTOR VEHICLE REPRESENTATIVE Pharyngitis ICD-462 Inactive Shikha Yokum MOTOR VEHICLE REPRESENTATIVE 2013 Scabies ICD-133.0 Inactive Shikha Yokum MOTOR VEHICLE REPRESENTATIVE 12/29 Folliculitis ICD-704.8 Inactive Shikha Yokum MOTOR VEHICLE REPRESENTATIVE Medication List Medication Instructions Start Date Stop Date Generic Name NDC Status Provider Patient Instruction SUPRAX 400 MG CAPS Take one tablet twice daily for 7 days CEFIXIME [id number] No Longer Active Shikha Yokum MOTOR VEHICLE REPRESENTATIVE Active CYCLOBENZAPRINE HCL 10 MG TABS 1/2 to 1 tablet by mouth three times daily as needed for muscle spasm/pain CYCLOBENZAPRINE HCL 45879555943 Active Shikha Yokum MOTOR VEHICLE REPRESENTATIVE Active CYCLOBENZAPRINE HCL 10 MG TABS 1/2 to 1 tablet every 4 hours CYCLOBENZAPRINE HCL 19807630765 Active Shikha Yokum MOTOR VEHICLE REPRESENTATIVE Active TESSALON PERLES 100 MG CAP 1 tablet by mouth 3 times daily 01/20 BENZONATATE 42975344368 No Longer Active Shikha Yokum MOTOR VEHICLE REPRESENTATIVE Active HYDROXYZINE HCL 10 MG TABS 1 to 2 three times a day as needed for itching HYDROXYZINE HCL 71702953272 No Longer Active Shikha Yokum MOTOR VEHICLE REPRESENTATIVE Active CYCLOBENZAPRINE HCL 10 MG TABS 1 three times a day as needed for back spasm CYCLOBENZAPRINE HCL 61282888732 No Longer Active Shikha Yokum MOTOR VEHICLE REPRESENTATIVE Active SEROQUEL 200 MG TABS 1 tablet at bedtime. QUETIAPINE FUMARATE 26526546153 No Longer Active Shikha Yokum MOTOR VEHICLE REPRESENTATIVE Active BACTRIM DS 800-160 MG TAB 1 tab by mouth twice daily TRIMETHOPRIM-SULFAMETHOXAZOLE 08879228725 No Longer Active Shikhaciro Randolph MOTOR VEHICLE REPRESENTATIVE Active STROMECTOL 3 MG TABS 5 tablets by mouth one time on an empty stomach, may repeat in 2 weeks if needed IVERMECTIN 30229995988 No Longer Active Shikha Anuelmelanieum MOTOR VEHICLE REPRESENTATIVE Active PERMETHRIN 5 % CREA apply neck to toes tonight and then rinse off in morning. repeat at 7 days PERMETHRIN 05495239809 No Longer Active Andrei Nichols MD Active MEDROL (NISA) 4 MG TABS 6 tabs on day 1, 5 tabs on day 2, 4 tabs on day 3, 3 tabs on day 4, 2 tabs on day 5, 1 tab on day 6 METHYLPREDNISOLONE 76440486533 No Longer Active Prisca Lockwood MD PhD Active AZITHROMYCIN 250 MG TABS 2 po qd x 1 day, then 1 po qd x 4 days AZITHROMYCIN 14334107744 No Longer Active Prisca Lockwood MD PhD Active LATUDA 20 MG TABS 1 tab at at night with meal LURASIDONE HCL 51471441855 Active Prisca Lockwood MD PhD Active CELEXA 20 MG TABS Take 1.5 tablets daily CITALOPRAM HYDROBROMIDE 68751061488 No Longer Active Prisca Lockwood MD PhD Active LOMOTIL 2.5-0.025 MG TAB 1 to 2 four times a day as needed for diarrhea 01/21 DIPHENOXYLATE-ATROPINE 69490652479 No Longer Active Prisca Lockwood MD PhD Active TAMIFLU 75 MG CAPS 1 bid x 5 days OSELTAMIVIR PHOSPHATE 62472255286 No Longer Active Rosalie Boyd APRN Active ZITHROMAX 250 MG TAB 2 po today, then 1 po q days 2-5 AZITHROMYCIN 08485081633 No Longer Active Rosalie Boyd APRN Active STROMECTOL 3 MG TABS 6 pills by mouth x 1; repeat in 10 days 2012 IVERMECTIN 06637141724 No Longer Active Rosalie Boyd APRN Active TYLENOL WITH CODEINE #3 300-30 MG TABS ONE TABLET FOUR TIMES A DAY NEEDED for pain or cough ACETAMINOPHEN-CODEINE 81798379667 No Longer Active Rosalie Boyd APRN Active GUAIFENESIN-CODEINE 100-10 MG/5ML SYRP 1 tsp PO q6h PRN cough GUAIFENESIN-CODEINE 75577406296 No Longer Active Rosalie Boyd APRN Active KEFLEX 500 MG CAP 1 po qid CEPHALEXIN 99476458183 No Longer Active Rosalie Body APRN Active GUAIFENESIN-CODEINE 100-10 MG/5ML SYRP 1 tsp PO q6h PRN cough GUAIFENESIN-CODEINE 58539741822 No Longer Active Rosalie Boyd APRN Active PROMETHAZINE HCL 25 MG TABS 1 four times a day as needed for nausea/vomiting PROMETHAZINE HCL 02276403917 No Longer Active Rosalie Boyd APRN Active LAMISIL AT 1 % CREA apply bid to rash TERBINAFINE HCL 12326861698 No Longer Active Andrei Nichols MD Active AMOXICILLIN 400 MG/5ML SUSR 6ml three times a day for 10 days AMOXICILLIN 84042299288 No Longer Active Andrei Nichols MD Active PROMETHAZINE HCL 25 MG TABS take 1 po Q 8 hours prn nausea and vomiting 12/11 PROMETHAZINE HCL 27566029636 No Longer Active Andrei Nichols MD Active BACTROBAN 2 % OINTMENT Apply bid to affected area MUPIROCIN 53890518833 No Longer Active Andrei Nichols MD Active GUAIFENESIN-CODEINE 100-10 MG/5ML SYRP 1 tsp PO q6h PRN cough GUAIFENESIN-CODEINE 51501073309 No Longer Active Andrei Nichols MD Active BACTRIM DS 800-160 MG TABS 1 po BID x 10 days SULFAMETHOXAZOLE-TRIMETHOPRIM 39037315132 No Longer Active Rosalie Boyd APRN Active GUAIFENESIN-CODEINE 100-10 MG/5ML SYRP 1-2 tsp PO q6h PRN cough GUAIFENESIN-CODEINE 77165779036 No Longer Active Giovany URBINA Active PREDNISONE 20 MG TABS 1 tablet by mouth twice daily for 2 days, then 1 daily for 2 days PREDNISONE 81097853489 No Longer Active Giovany URBINA Active KLONOPIN 1 MG TABS 1 tablet TID CLONAZEPAM 79933518068 Active Giovany URBINA Active HYDROCODONE-ACETAMINOPHEN 5-325 MG TABS 1/2 to 1 po q 4 hours prn pain 11/13 HYDROCODONE-ACETAMINOPHEN 01608549101 No Longer Active Rosalie Boyd APRN Active PENICILLIN V POTASSIUM 500 MG TABS 1 TID PENICILLIN V POTASSIUM 60967093895 No Longer Active Andrei Nichols MD Active SEROQUEL 50 MG TABS 1 tablet at HS QUETIAPINE FUMARATE 17685429474 No Longer Active Andrei Nichols MD Active SEROQUEL 100 MG TABS 1 tablet at HS QUETIAPINE FUMARATE 64331722371 No Longer Active Andrei Nichols MD Active TRIAMCINOLONE ACETONIDE 0.1 % CREA apply three times daily prn rash TRIAMCINOLONE ACETONIDE 79251778889 No Longer Active Andrei Nichols MD Active AMOXICILLIN 500 MG TABS take one tab po tid x 10 days AMOXICILLIN 09291518850 No Longer Active Andrei Nichols MD Active CELEXA 20 MG TABS 1and 1/2 tablets by mouth daily CITALOPRAM HYDROBROMIDE 52283590424 No Longer Active Ary URBINA Active FLEXERIL 10 MG TAB 1/2 to one tablet every 12 hours as needed CYCLOBENZAPRINE HCL 24905329112 No Longer Active Ary Pool PA Active CLONAZEPAM 1 MG TABS take at bedtime CLONAZEPAM 40338190352 No Longer Active Ary Pool PA Active PERMETHRIN 5 % CREA applyhead to toes tonight and then rinse off in 18 hours. repeat at 7 days if needed. PERMETHRIN 87661625381 No Longer Active Ary Pool PA Active IBUPROFEN 600 MG TAB 1 tablet three times a day as needed IBUPROFEN 09106130113 Active Shikha Randolph MOTOR VEHICLE REPRESENTATIVE Active AMOXICILLIN 500 MG CAPS 2 po BID x 10 days AMOXICILLIN 74250192034 No Longer Active Andrei Nichols MD Active TYLENOL WITH CODEINE #3 300-30 MG TABS 1 to 2 four times a day as needed for pain ACETAMINOPHEN-CODEINE 20290430453 No Longer Active Reta Acostaklin Active PREDNISONE 20 MG TAB 2 tabs daily for 5 days, then 1 daily for 5 days PREDNISONE 95051902535 No Longer Active Reta Memo Active LOMOTIL 2.5-0.025 MG TAB 1 to 2 four times a day as needed for diarrhea 05/28 DIPHENOXYLATE-ATROPINE 03007328597 No Longer Active Reta Memo Active ALPRAZOLAM 1 MG TABS 1 tab tid ALPRAZOLAM 39382082859 No Longer Active Reta Memo Active AMOXICILLIN 500 MG CAPS 2 po BID x 10 days AMOXICILLIN 81785658613 No Longer Active Andrei Nichols MD Active AMOXICILLIN 500 MG TABS Take one tab by mouth 3 times daily, morning, afternoon and evening for 7 days. AMOXICILLIN 62240301819 No Longer Active Virginia Alejandra RN Active VICODIN 5-300 MG TABS one tab PO Q 6 hours PRN pain HYDROCODONE-ACETAMINOPHEN 81228287370 No Longer Active Virginia Alejandra RN Active FLAGYL 500 MG TABS four tabs PO one time METRONIDAZOLE 35512912537 No Longer Active Alondra Denton MD Active MELOXICAM 15 MG TABS 1 po q day for pain with food MELOXICAM 06493843516 No Longer Active Alondra Denton MD Active AMOXICILLIN 400 MG/5ML SUSR 5ml po TID x 10 days AMOXICILLIN 19149691366 No Longer Active Jani Marrero MD Active NIX CREME RINSE 1 % LIQD apply as directed tonight, repeat at 7 days PERMETHRIN 78808837028 No Longer Active Corky Mckeon DO Active QVAR 40 MCG/ACT AERS one puff three times a day as needed BECLOMETHASONE DIPROPIONATE 14362967799 No Longer Active Andrei Nichols MD Active METHOCARBAMOL 500 MG TABS 1 to 2 qid prn back spasm METHOCARBAMOL 10790929350 No Longer Active Andrei Nichols MD Active VISTARIL 25 MG CAPS 1-2 tablets three times a day as needed HYDROXYZINE PAMOATE 77554015689 No Longer Active Andrei Nichols MD Active SEROQUEL 100 MG TABS 1/2 TABLET at hs QUETIAPINE FUMARATE 17641522379 No Longer Active Aicha Rizzo RN Active BACTRIM DS 800-160 MG TAB 1 tab by mouth twice daily TRIMETHOPRIM-SULFAMETHOXAZOLE 75137376362 No Longer Active Prisca Lockwood MD PhD Active PROAIR HFA 108 (90 BASE) MCG/ACT AERS 2 puffs four times a day as needed 2011 ALBUTEROL SULFATE 39714817309 Active Shikha Randolph APRN Active CYCLOBENZAPRINE HCL 10 MG TABS TAKE 1/2 - 1 TAB EVERY 12 HOURS NEEDED 2010 CYCLOBENZAPRINE HCL 44919764428 No Longer Active Andrei Nichols MD Active CYCLOBENZAPRINE HCL 10 MG TABS TAKE 1/2 - 1 TAB EVERY 12 HOURS NEEDED 2010 CYCLOBENZAPRINE HCL 10 MG TABS 081236 CYCLOBENZAPRINE HCL Inactive SEROQUEL 100 MG TABS 1/2 TABLET at hs SEROQUEL 100 MG TABS 994835 QUETIAPINE FUMARATE Inactive VISTARIL 25 MG CAPS 1-2 tablets three times a day as needed VISTARIL 25 MG CAPS 544856 HYDROXYZINE PAMOATE Inactive METHOCARBAMOL 500 MG TABS 1 to 2 qid prn back spasm METHOCARBAMOL 500 MG TABS 044197 METHOCARBAMOL Inactive QVAR 40 MCG/ACT AERS one puff three times a day as needed QVAR 40 MCG/ACT AERS BECLOMETHASONE DIPROPIONATE Inactive NIX CREME RINSE 1 % LIQD apply as directed tonight, repeat at 7 days NIX CREME RINSE 1 % LIQD PERMETHRIN Inactive MELOXICAM 15 MG TABS 1 po q day for pain with food MELOXICAM 15 MG TABS 405591 MELOXICAM Inactive ALPRAZOLAM 1 MG TABS 1 tab tid ALPRAZOLAM 1 MG TABS 852136 ALPRAZOLAM Inactive LOMOTIL 2.5-0.025 MG TAB 1 to 2 four times a day as needed for diarrhea 05/28 LOMOTIL 2.5-0.025 MG TAB 4243509 DIPHENOXYLATE-ATROPINE Inactive PREDNISONE 20 MG TAB 2 tabs daily for 5 days, then 1 daily for 5 days PREDNISONE 20 MG TAB 868111 PREDNISONE Inactive TYLENOL WITH CODEINE #3 300-30 MG TABS 1 to 2 four times a day as needed for pain TYLENOL WITH CODEINE #3 300-30 MG TABS 288949 ACETAMINOPHEN-CODEINE Inactive PERMETHRIN 5 % CREA applyhead to toes tonight and then rinse off in 18 hours. repeat at 7 days if needed. PERMETHRIN 5 % CREA 354598 PERMETHRIN Inactive CLONAZEPAM 1 MG TABS take at bedtime CLONAZEPAM 1 MG TABS 964829 CLONAZEPAM Inactive FLEXERIL 10 MG TAB 1/2 to one tablet every 12 hours as needed FLEXERIL 10 MG TAB CYCLOBENZAPRINE HCL Inactive CELEXA 20 MG TABS 1and 1/2 tablets by mouth daily CELEXA 20 MG TABS 372683 CITALOPRAM HYDROBROMIDE Inactive AMOXICILLIN 500 MG TABS take one tab po tid x 10 days AMOXICILLIN 500 MG TABS 130974 AMOXICILLIN Inactive TRIAMCINOLONE ACETONIDE 0.1 % CREA apply three times daily prn rash TRIAMCINOLONE ACETONIDE 0.1 % CREA 5950120 TRIAMCINOLONE ACETONIDE Inactive SEROQUEL 100 MG TABS 1 tablet at HS SEROQUEL 100 MG TABS 601367 QUETIAPINE FUMARATE Inactive SEROQUEL 50 MG TABS 1 tablet at HS SEROQUEL 50 MG TABS 591257 QUETIAPINE FUMARATE Inactive HYDROCODONE-ACETAMINOPHEN 5-325 MG TABS 1/2 to 1 po q 4 hours prn pain 11/13 HYDROCODONE-ACETAMINOPHEN 5-325 MG TABS 972316 HYDROCODONE- ACETAMINOPHEN Inactive PREDNISONE 20 MG TABS 1 tablet by mouth twice daily for 2 days, then 1 daily for 2 days PREDNISONE 20 MG TABS 567828 PREDNISONE Inactive GUAIFENESIN-CODEINE 100-10 MG/5ML SYRP 1-2 tsp PO q6h PRN cough GUAIFENESIN-CODEINE 100-10 MG/5ML SYRP 317006 GUAIFENESIN-CODEINE Inactive GUAIFENESIN-CODEINE 100-10 MG/5ML SYRP 1 tsp PO q6h PRN cough GUAIFENESIN-CODEINE 100-10 MG/5ML SYRP 662888 GUAIFENESIN-CODEINE Inactive BACTROBAN 2 % OINTMENT Apply bid to affected area BACTROBAN 2 % OINTMENT 718818 MUPIROCIN Inactive PROMETHAZINE HCL 25 MG TABS take 1 po Q 8 hours prn nausea and vomiting 12/11 PROMETHAZINE HCL 25 MG TABS 247843 PROMETHAZINE HCL Inactive AMOXICILLIN 400 MG/5ML SUSR 6ml three times a day for 10 days AMOXICILLIN 400 MG/5ML SUSR 877489 AMOXICILLIN Inactive LAMISIL AT 1 % CREA apply bid to rash LAMISIL AT 1 % CREA 893710 TERBINAFINE HCL Inactive PROMETHAZINE HCL 25 MG TABS 1 four times a day as needed for nausea/vomiting PROMETHAZINE HCL 25 MG TABS 713112 PROMETHAZINE HCL Inactive GUAIFENESIN-CODEINE 100-10 MG/5ML SYRP 1 tsp PO q6h PRN cough GUAIFENESIN-CODEINE 100-10 MG/5ML SYRP 300800 GUAIFENESIN-CODEINE Inactive KEFLEX 500 MG CAP 1 po qid KEFLEX 500 MG CAP 329789 CEPHALEXIN Inactive GUAIFENESIN-CODEINE 100-10 MG/5ML SYRP 1 tsp PO q6h PRN cough GUAIFENESIN-CODEINE 100-10 MG/5ML SYRP 786267 GUAIFENESIN-CODEINE Inactive TYLENOL WITH CODEINE #3 300-30 MG TABS ONE TABLET FOUR TIMES A DAY NEEDED for pain or cough TYLENOL WITH CODEINE #3 300-30 MG TABS 278420 ACETAMINOPHEN-CODEINE Inactive STROMECTOL 3 MG TABS 6 pills by mouth x 1; repeat in 10 days 2012 STROMECTOL 3 MG TABS 460023 IVERMECTIN Inactive LOMOTIL 2.5-0.025 MG TAB 1 to 2 four times a day as needed for diarrhea 01/21 LOMOTIL 2.5-0.025 MG TAB 1611188 DIPHENOXYLATE-ATROPINE Inactive CELEXA 20 MG TABS Take 1.5 tablets daily CELEXA 20 MG TABS 495752 CITALOPRAM HYDROBROMIDE Inactive PERMETHRIN 5 % CREA apply neck to toes tonight and then rinse off in morning. repeat at 7 days PERMETHRIN 5 % CREA 301237 PERMETHRIN Inactive STROMECTOL 3 MG TABS 5 tablets by mouth one time on an empty stomach, may repeat in 2 weeks if needed STROMECTOL 3 MG TABS 839498 IVERMECTIN Inactive BACTRIM DS 800-160 MG TAB 1 tab by mouth twice daily BACTRIM DS 800-160 MG TAB TRIMETHOPRIM-SULFAMETHOXAZOLE Inactive SEROQUEL 200 MG TABS 1 tablet at bedtime. SEROQUEL 200 MG TABS 080490 QUETIAPINE FUMARATE Inactive CYCLOBENZAPRINE HCL 10 MG TABS 1 three times a day as needed for back spasm CYCLOBENZAPRINE HCL 10 MG TABS 996624 CYCLOBENZAPRINE HCL Inactive HYDROXYZINE HCL 10 MG TABS 1 to 2 three times a day as needed for itching HYDROXYZINE HCL 10 MG TABS 541984 HYDROXYZINE HCL Inactive TESSALON PERLES 100 MG CAP 1 tablet by mouth 3 times daily 01/20 TESSALON PERLES 100 MG CAP 861607 BENZONATATE Inactive BACTRIM DS 800-160 MG TAB 1 tab by mouth twice daily BACTRIM DS 800-160 MG TAB TRIMETHOPRIM-SULFAMETHOXAZOLE Inactive AMOXICILLIN 400 MG/5ML SUSR 5ml po TID x 10 days AMOXICILLIN 400 MG/5ML SUSR 104832 AMOXICILLIN Inactive FLAGYL 500 MG TABS four tabs PO one time FLAGYL 500 MG TABS 936665 METRONIDAZOLE Inactive AMOXICILLIN 500 MG TABS Take one tab by mouth 3 times daily, morning, afternoon and evening for 7 days. AMOXICILLIN 500 MG TABS 272175 AMOXICILLIN Inactive AMOXICILLIN 500 MG CAPS 2 po BID x 10 days AMOXICILLIN 500 MG CAPS 721772 AMOXICILLIN Inactive AMOXICILLIN 500 MG CAPS 2 po BID x 10 days AMOXICILLIN 500 MG CAPS 024179 AMOXICILLIN Inactive PENICILLIN V POTASSIUM 500 MG TABS 1 TID PENICILLIN V POTASSIUM 500 MG TABS 793532 PENICILLIN V POTASSIUM Inactive BACTRIM DS 800-160 MG TABS 1 po BID x 10 days BACTRIM DS 800-160 MG TABS SULFAMETHOXAZOLE-TRIMETHOPRIM Inactive ZITHROMAX 250 MG TAB 2 po today, then 1 po q days 2-5 ZITHROMAX 250 MG TAB 3815350 AZITHROMYCIN Inactive TAMIFLU 75 MG CAPS 1 bid x 5 days TAMIFLU 75 MG CAPS OSELTAMIVIR PHOSPHATE Inactive AZITHROMYCIN 250 MG TABS 2 po qd x 1 day, then 1 po qd x 4 days AZITHROMYCIN 250 MG TABS 7753997 AZITHROMYCIN Inactive MEDROL (NISA) 4 MG TABS [...] Immunizations Vaccine Administration Date Value Standard Description pneumococcal immunization administered Pneumovax 23 [CVX33] pneumococcal polysaccharide vaccine, 23 valent Seasonal influenza vaccine, injectable, containing preservative, for > 3 years old (Afluria, FluLaval, Fluzone, Fluvirin, Fluarix, Agriflu(>=18 yo)) Fluzone (>3 yrs.) [FAL666] Influenza, seasonal, injectable Seasonal influenza vaccine, injectable, containing preservative, for > 3 years old (Afluria, FluLaval, Fluzone, Fluvirin, Fluarix, Agriflu(>=18 yo)) Fluzone (>3 yrs.) [ACB169] Influenza, seasonal, injectable Seasonal influenza vaccine, injectable, containing preservative, for > 3 years old (Afluria, FluLaval, Fluzone, Fluvirin, Fluarix, Agriflu(>=18 yo)) Fluzone (>3 yrs.) [DIO195] Influenza, seasonal, injectable hepatitis B vaccine #1 [...] Range Description blood pressure, diastolic - 8462-4 82 mm[Hg] BP jorge blood pressure, systolic - 8480-6 121 mm[Hg] BP sys pulse rate E&M - 8867-4 96 /min Heart rate temperature E&M 98.6 [degF] Body temperature weight E&M - 3141-9 202 [lb_av] Weight Measured blood pressure, diastolic - 8462-4 77 mm[Hg] BP jorge blood pressure, systolic - 8480-6 114 mm[Hg] BP sys pulse rate E&M - 8867-4 84 /min Heart rate temperature E&M 97.3 [degF] Body temperature weight E&M - 3141-9 170.8 [lb_av] Weight Measured blood pressure, diastolic - 8462-4 86 mm[Hg] BP jorge blood pressure, systolic - 8480-6 129 mm[Hg] BP sys height E&M - 8302-2 64 [in_us] Bdy height pulse rate E&M - 8867-4 118 /min Heart rate temperature E&M 97.5 [degF] Body temperature weight E&M - 3141-9 169 [lb_av] Weight Measured Diagnostic Results Date Name Value Unit Range Description Lab Report: UADIP W/MICRO, AUTO - Chemistry protein, total urine random Negative mg/dL Negative RBC, urine, dipstick Negative Negative Lab Report: UADIP W/MICRO, AUTO - Urinalysis urobilinogen, urine, semiquantitative (dipstick) 0.2 Normal leukocyte esterase, urine, by dipstick Trace Negative nitrite, urine, semiquantitative Negative Negative glucose, urine, semiquantitative Negative Negative ketones, urine, by test strip Negative Negative bilirubin, urine Negative Negative urine color Yellow Colorless;Lightyellow;Straw;Yellow appearance, urine Clear Clear specific gravity, urine 1.020 1.000-1.030 pH, urine, semiquantitative 7.0 5.0-8.5 Encounters Code Encounter Date Provider Facility CPT-16557 Level 3 Est. Patient 14:51:20 STUDENT ASSISTANCE COUNSELOR Shikha Randolph [facility] CPT-04806 Level 3 Est. Patient 10:42:38 CDT Shikha Randolph [facility] CPT-58046 Level 3 Est. Patient 18:20:39 CDT Prisca Lockwood MD PhD [facility] CPT-70049 Level 3 Est. Patient 16:42:47 STUDENT ASSISTANCE COUNSELOR Rosalie Boyd [facility] CPT-92142 Level 3 Est. Patient 14:34:36 STUDENT ASSISTANCE COUNSELOR Rosalie Oliver [facility] CPT-09931 Level 4 Est. Patient 10:23:07 STUDENT ASSISTANCE COUNSELOR Andrei Nichols MD [facility] [place]-46061 Level 3 Est. Patient 16:47:31 STUDENT ASSISTANCE COUNSELOR Andrei Nichols MD [facility] [place]-93467 Level 3 Est. Patient 11:59:14 CDT Rosalie Oliver [facility] CPT-90918 Level 3 Est. Patient 15:30:34 CDT Giovany URBINA [facility] [place]-37032 Level 3 Est. Patient 11:03:03 CDT Rosalie Oliver [facility] CPT-47094 Level 3 Est. Patient 11:08:07 CDT Rosalie Boyd [facility]-17556 Level 3 Est. Patient 14:07:32 CDT Andrei Nichols MD [facility] [place]-18341 Level 3 Est. Patient 17:08:28 CDT Andrei Nichols MD [facility] [place]-64938 Level 3 Est. Patient 13:10:13 CDT Jani Marrero MD [facility]-77223 Level 3 Est. Patient 11:27:12 CDT Jani Marrero MD [facility]-84136 Level 3 Est. Patient 13:44:42 CDT Andrei Nichols MD [facility] [place]-47817 Level 3 Est. Patient 12:34:57 STUDENT ASSISTANCE COUNSELOR Andrei Nichols MD [facility] [place]-83494 Level 3 Est. Patient 15:30:06 CDT Jani Marrero MD [facility] [place]-41802 Level 3 Est. Patient 21:59:00 CDT Corky Mckeon DO [facility] [place]-34476 Level 3 Est. Patient 17:12:49 CDT Andrei Nichols MD [facility] CPT-99883 Level 4 Est. Patient 12:27:45 STUDENT ASSISTANCE COUNSELOR Andrei Nichols MD [facility] CPT-11662 Level 3 Est. Patient 12:15:34 STUDENT ASSISTANCE COUNSELOR Andrei Nichols MD [facility] Procedures Code Procedure Name Date Entry Date Standard Description CPT-09293 Administration 2+ single or combination vaccines inc oral 07:50:30 CDT CPT-98999 Administration single or combination vaccine inc oral 07 :50:30 CDT CPT-16670 Pneumovax 07:50:30 CDT CPT-73557 Influenza split virus > age 3 07:50:30 CDT CPT-OV Office Visit 11:49:10 STUDENT ASSISTANCE COUNSELOR CPT-23050 Nexplanon Removal with Reinsertion 14:02:06 STUDENT ASSISTANCE COUNSELOR CPT-J7307 Nexplanon (Implant) 14:02:06 STUDENT ASSISTANCE COUNSELOR CPT-OV Office Visit 14:02:06 STUDENT ASSISTANCE COUNSELOR CPT-OV Office Visit 11:58:04 STUDENT ASSISTANCE COUNSELOR CPT-53522 Administration single or combination vaccine inc oral 11 :31:07 CDT CPT-33923 Influenza split virus > age 3 11:31:07 CDT CPT-79687 Administration single or combination vaccine inc oral 10 :34:13 CDT CPT-56405 Influenza split virus > age 3 10:34:13 CDT
[2017-01-02] MEDS ORDERED: NAPR500T PO (18:33)
[2017-01-02] MEDS ORDERED: HYDR-757 PO (18:33)
--- OUTSIDE RECORDS SUMMARY | 2017-01-02 18:33 | XMS REPORT | Clinical Summary ---
Author Author Admin, QIE Organization [facility] Address Unknown Phone Unavailable Allergies, Adverse Reactions, Alerts Allergy Name Reaction Description Start Date Severity Status Provider NKDA Critical Active Shikha Randolph BO Conditions or Problems Problem Name Problem Code Onset Date Status Entry Date Provider Comment Standard Description Annotate ANXIETY DISORDER 300.00 Active Andrei Nichols MD Anxiety state, unspecified DEPRESSION 311 Active Anderi Nichols MD Depressive disorder, not elsewhere classified [...] Sinusitis, frontal, acute 461.1 Resolved Shikha Yokum [employer] Acute frontal sinusitis Pharyngitis 462 Resolved Shikha Yokum [employer] Acute pharyngitis Scabies 133.0 Resolved Shikha Yokum [employer] Scabies Folliculitis 704.8 Resolved Shikha Yokum [employer] Other specified diseases of hair and hair [...] Reagan PA ECZEMA ICD-692.9 Inactive Shikha Tomasa [employer] OTITIS MEDIA ICD-382.9 Inactive Ary Kirk PA 09/16 PHARYNGITIS ICD-462 Inactive Andrei Nichols MD UNSPECIFIED DISORDER TEETH&SUPPORTING STRUCTURES ICD-525.9 12/29 Inactive Shikha Randolph [employer] PHARYNGITIS-ACUTE ICD-462 Inactive Rosalie Boyd [employer] DIARRHEA ICD-787.91 Inactive Andrei Nichols MD SHOULDER PAIN ICD-719.41 Inactive Shikha Randolph [employer] NAUSEA AND VOMITING ICD-787.01 Inactive Andrei Nichols [...] PhD Dental caries ICD-521.00 Inactive Shikha Yokum [employer] Tooth pain ICD-525.9 Inactive Prisca Lockwood MD PhD Head lice ICD-132.0 Inactive Prisca Lockwood MD PhD Upper respiratory infection ICD-465.9 Inactive Prisca Lockwood MD PhD Sinusitis, frontal, acute ICD-461.1 Inactive Shikha Yokum [employer] Pharyngitis ICD-462 Inactive Shikha Yokum [employer]ER 2013 Scabies ICD-133.0 Inactive Shikha Yokum [employer]ER 12/29 Folliculitis ICD-704.8 Inactive Shikha Yokum [employer] Cough ICD-786.2 Inactive Andrei Nichols MD SINUSITIS, ACUTE ICD-461.9 Inactive Jani Marrero MD Medication List Medication Instructions Start Date Stop Date Generic Name NDC Status Provider Patient Instruction MELOXICAM 15 MG TABS 1 daily for knee pain MELOXICAM 84502334245 Active Renetta Ryan APRN Active CYCLOBENZAPRINE HCL 10 MG TABS 1 three times a day as needed for muscle spasm CYCLOBENZAPRINE HCL 58842734550 Active Renetta Ryan APRN Active BUSPIRONE HCL 10 MG ORAL TABS 2 TABS PO BID BUSPIRONE HCL 09898732973 Active Renetta Ryan APRN Active AMITRIPTYLINE HCL 75 MG ORAL TABS 1 TAB Q HS AMITRIPTYLINE HCL 46757679648 Active Renetta Ryan APRN Active PROAIR HFA 108 (90 BASE) MCG/ACT AERS 2 puffs four times a day as needed 2015 ALBUTEROL SULFATE 74931205418 No Longer Active Renetta Ryan APRN Active KLONOPIN 1 MG TABS 1 tablet TID CLONAZEPAM 49143661085 No Longer Active Renetta Ryan APRN Active ZITHROMAX 250 MG TAB 2 po today, then 1 po q days 2-5 AZITHROMYCIN 35976173989 No Longer Active Jani Marrero MD Active IBUPROFEN 800 MG TABS 1 tab PO TID IBUPROFEN 34971091354 Active Jani Marrero MD Active WELLBUTRIN SR 100 MG ORAL [id number] 1 TAB PO DAILY BUPROPION HCL 78693938777 Active Jani Marrero MD Active AMITRIPTYLINE HCL 50 MG TAB 1 po q hs for sleep AMITRIPTYLINE HCL 03888659478 No Longer Active Jani Marrero MD Active PROMETHAZINE HCL 25 MG TABS 1 four times a day as needed for vomiting PROMETHAZINE HCL 63178747438 No Longer Active Jani Marrero MD Active AMOXICILLIN 500 MG TABS 2 tabs twice a day for 10 days AMOXICILLIN 41411993683 No Longer Active Jani Marrero MD Active SEROQUEL 200 MG ORAL TABS Take 1 tablet at hs QUETIAPINE FUMARATE 46270275951 No Longer Active Jani Marrero MD Active FETZIMA 40 MG ORAL [id number]-MOR LEVOMILNACIPRAN HCL 42683418832 No Longer Active Jani Marrero MD Active PROAIR HFA 108 (90 BASE) MCG/ACT AERS 2 puffs four times a day as needed 2011 ALBUTEROL SULFATE 77411213070 No Longer Active Alondra Denton MD Active IBUPROFEN 600 MG TAB 1 tablet three times a day as needed IBUPROFEN 42977648418 No Longer Active Alondra Denton MD Active LATUDA 20 MG TABS 1 tab at at night with meal LURASIDONE HCL 80947877594 No Longer Active Alondra Denton MD Active CYCLOBENZAPRINE HCL 10 MG TABS 1/2 to 1 tablet every 4 hours CYCLOBENZAPRINE HCL 66487147173 No Longer Active Alondra Denton MD Active CYCLOBENZAPRINE HCL 10 MG TABS 1/2 to 1 tablet by mouth three times daily as needed for muscle spasm/pain CYCLOBENZAPRINE HCL 68250529601 No Longer Active Alondra Denton MD Active SUPRAX 400 MG CAPS Take one tablet twice daily for 7 days CEFIXIME 13498424597 No Longer Active Shikha Yokum [employer]ER Active TESSALON PERLES 100 MG CAP 1 tablet by mouth 3 times daily 01/20 BENZONATATE 56571891154 No Longer Active Shikha Yokum [employer]ER Active HYDROXYZINE HCL 10 MG TABS 1 to 2 three times a day as needed for itching HYDROXYZINE HCL 77593073419 No Longer Active Shikha Yokum [employer]AYER Active CYCLOBENZAPRINE HCL 10 MG TABS 1 three times a day as needed for back spasm CYCLOBENZAPRINE HCL 13694919366 No Longer Active Shikha Yokum [employer]OO[employer]ING [employer]ER Active SEROQUEL 200 MG TABS 1 tablet at bedtime. QUETIAPINE FUMARATE 00528978177 No Longer Active Shikha Yokum [employer]ING [employer]AYER Active BACTRIM DS 800-160 MG TAB 1 tab by mouth twice daily TRIMETHOPRIM-SULFAMETHOXAZOLE 04551032657 No Longer Active Shikha Yokum [employer]ER Active STROMECTOL 3 MG TABS 5 tablets by mouth one time on an empty stomach, may repeat in 2 weeks if needed IVERMECTIN 79179456847 No Longer Active Shikha Yokum [employer]ER Active PERMETHRIN 5 % CREA apply neck to toes tonight and then rinse off in morning. repeat at 7 days PERMETHRIN 71558283124 No Longer Active Andrei Nichols MD Active MEDROL (NISA) 4 MG TABS 6 tabs on day 1, 5 tabs on day 2, 4 tabs on day 3, 3 tabs on day 4, 2 tabs on day 5, 1 tab on day 6 METHYLPREDNISOLONE 29954033328 No Longer Active Prisca Lockwood MD PhD Active AZITHROMYCIN 250 MG TABS 2 po qd x 1 day, then 1 po qd x 4 days AZITHROMYCIN 61448958210 No Longer Active Prisca Lockwood MD PhD Active CELEXA 20 MG TABS Take 1.5 tablets daily CITALOPRAM HYDROBROMIDE 91340923996 No Longer Active Prisca Lockwood MD PhD Active LOMOTIL 2.5-0.025 MG TAB 1 to 2 four times a day as needed for diarrhea 01/21 DIPHENOXYLATE-ATROPINE 70393919460 No Longer Active Prisca Lockwood MD PhD Active TAMIFLU 75 MG CAPS 1 bid x 5 days OSELTAMIVIR PHOSPHATE 90341586585 No Longer Active Rosalie Boyd APRN Active ZITHROMAX 250 MG TAB 2 po today, then 1 po q days 2-5 AZITHROMYCIN 42588368761 No Longer Active Rosalie Boyd APRN Active STROMECTOL 3 MG TABS 6 pills by mouth x 1; repeat in 10 days 2012 IVERMECTIN 22628921416 No Longer Active Rosalie Boyd APRN Active TYLENOL WITH CODEINE #3 300-30 MG TABS ONE TABLET FOUR TIMES A DAY NEEDED for pain or cough ACETAMINOPHEN-CODEINE 70043169334 No Longer Active Rosalie Boyd APRN Active GUAIFENESIN-CODEINE 100-10 MG/5ML SYRP 1 tsp PO q6h PRN cough GUAIFENESIN-CODEINE 62292432966 No Longer Active Rosalie Oliver [employer] Active KEFLEX 500 MG CAP 1 po qid CEPHALEXIN 00041353610 No Longer Active Rosalie Boyd APRN Active GUAIFENESIN-CODEINE 100-10 MG/5ML SYRP 1 tsp PO q6h PRN cough GUAIFENESIN-CODEINE 54687795115 No Longer Active Rosalie Boyd APRN Active PROMETHAZINE HCL 25 MG TABS 1 four times a day as needed for nausea/vomiting PROMETHAZINE HCL 38348884275 No Longer Active Rosalie Boyd APRN Active LAMISIL AT 1 % CREA apply bid to rash TERBINAFINE HCL 98108122559 No Longer Active Andrei Nichols MD Active AMOXICILLIN 400 MG/5ML SUSR 6ml three times a day for 10 days AMOXICILLIN 27412485965 No Longer Active Andrei Nichols MD Active PROMETHAZINE HCL 25 MG TABS take 1 po Q 8 hours prn nausea and vomiting 12/11 PROMETHAZINE HCL 98762979513 No Longer Active Andrei Nichols MD Active BACTROBAN 2 % OINTMENT Apply bid to affected area MUPIROCIN 98341481935 No Longer Active Andrei Nichols MD Active GUAIFENESIN-CODEINE 100-10 MG/5ML SYRP 1 tsp PO q6h PRN cough GUAIFENESIN-CODEINE 81832506714 No Longer Active Andrei Nichols MD Active BACTRIM DS 800-160 MG TABS 1 po BID x 10 days SULFAMETHOXAZOLE-TRIMETHOPRIM 72221066480 No Longer Active Rosalie Boyd APRN Active GUAIFENESIN-CODEINE 100-10 MG/5ML SYRP 1-2 tsp PO q6h PRN cough GUAIFENESIN-CODEINE 22494773772 No Longer Active Giovany URBINA Active PREDNISONE 20 MG TABS 1 tablet by mouth twice daily for 2 days, then 1 daily for 2 days PREDNISONE 50138910971 No Longer Active Giovany URBINA Active HYDROCODONE-ACETAMINOPHEN 5-325 MG TABS 1/2 to 1 po q 4 hours prn pain 11/13 HYDROCODONE-ACETAMINOPHEN 81400338025 No Longer Active Rosalie Boyd [employer]ER Active PENICILLIN V POTASSIUM 500 MG TABS 1 TID PENICILLIN V POTASSIUM 34292942323 No Longer Active Andrei Nichols MD Active SEROQUEL 50 MG TABS 1 tablet at HS QUETIAPINE FUMARATE 04118104400 No Longer Active Andrei Nichols MD Active SEROQUEL 100 MG TABS 1 tablet at HS QUETIAPINE FUMARATE 91563369653 No Longer Active Andrei Nichols MD Active TRIAMCINOLONE ACETONIDE 0.1 % CREA apply three times daily prn rash TRIAMCINOLONE ACETONIDE 88392165724 No Longer Active Andrei Nichols MD Active AMOXICILLIN 500 MG TABS take one tab po tid x 10 days AMOXICILLIN 01152807244 No Longer Active Andrei Nichols MD Active CELEXA 20 MG TABS 1and 1/2 tablets by mouth daily CITALOPRAM HYDROBROMIDE 66572119358 No Longer Active Ary Pool PA Active FLEXERIL 10 MG TAB 1/2 to one tablet every 12 hours as needed CYCLOBENZAPRINE HCL 81365910056 No Longer Active Ary Pool PA Active CLONAZEPAM 1 MG TABS take at bedtime CLONAZEPAM 08131284968 No Longer Active Ary Pool PA Active PERMETHRIN 5 % CREA applyhead to toes tonight and then rinse off in 18 hours. repeat at 7 days if needed. PERMETHRIN 65116907260 No Longer Active Ary Pool PA Active AMOXICILLIN 500 MG CAPS 2 po BID x 10 days AMOXICILLIN 87967834108 No Longer Active Andrei Nichols MD Active TYLENOL WITH CODEINE #3 300-30 MG TABS 1 to 2 four times a day as needed for pain ACETAMINOPHEN-CODEINE 02169436532 No Longer Active Reta Hampton Active PREDNISONE 20 MG TAB 2 tabs daily for 5 days, then 1 daily for 5 days PREDNISONE 89719620344 No Longer Active Reta Hampton Active LOMOTIL 2.5-0.025 MG TAB 1 to 2 four times a day as needed for diarrhea 05/28 DIPHENOXYLATE-ATROPINE 29657699912 No Longer Active Reta Hampton Active ALPRAZOLAM 1 MG TABS 1 tab tid ALPRAZOLAM 78674231901 No Longer Active Reta Hampton Active AMOXICILLIN 500 MG CAPS 2 po BID x 10 days AMOXICILLIN 68236093958 No Longer Active Andrei Nichols MD Active AMOXICILLIN 500 MG TABS Take one tab by mouth 3 times daily, morning, afternoon and evening for 7 days. AMOXICILLIN 75135648165 No Longer Active Virginia Alejandra RN Active VICODIN 5-300 MG TABS one tab PO Q 6 hours PRN pain HYDROCODONE-ACETAMINOPHEN 48673096561 No Longer Active Virginia Alejandra RN Active FLAGYL 500 MG TABS four tabs PO one time METRONIDAZOLE 64336835356 No Longer Active Alondra Denton MD Active MELOXICAM 15 MG TABS 1 po q day for pain with food MELOXICAM 84607263553 No Longer Active Alondra Denton MD Active AMOXICILLIN 400 MG/5ML SUSR 5ml po TID x 10 days AMOXICILLIN 42271211303 No Longer Active Jani Marrero MD Active NIX CREME RINSE 1 % LIQD apply as directed tonight, repeat at 7 days PERMETHRIN 79600994971 No Longer Active Corky Mckeon DO Active QVAR 40 MCG/ACT AERS one puff three times a day as needed BECLOMETHASONE DIPROPIONATE 64504199693 No Longer Active Andrei Nichols MD Active METHOCARBAMOL 500 MG TABS 1 to 2 qid prn back spasm METHOCARBAMOL 63315541321 No Longer Active Andrei Nichols MD Active VISTARIL 25 MG CAPS 1-2 tablets three times a day as needed HYDROXYZINE PAMOATE 90914478794 No Longer Active Andrei Nichols MD Active SEROQUEL 100 MG TABS 1/2 TABLET at hs QUETIAPINE FUMARATE 66673066221 No Longer Active Aicha Rizzo RN Active BACTRIM DS 800-160 MG TAB 1 tab by mouth twice daily TRIMETHOPRIM-SULFAMETHOXAZOLE 95970754674 No Longer Active Prisca Lockwood MD PhD Active CYCLOBENZAPRINE HCL 10 MG TABS TAKE 1/2 - 1 TAB EVERY 12 HOURS NEEDED 2010 CYCLOBENZAPRINE HCL 70974459899 No Longer Active Andrei Nichols MD Active CYCLOBENZAPRINE HCL 10 MG TABS TAKE 1/2 - 1 TAB EVERY 12 HOURS NEEDED 2010 CYCLOBENZAPRINE HCL 10 MG TABS 297906 CYCLOBENZAPRINE HCL Inactive SEROQUEL 100 MG TABS 1/2 TABLET at hs SEROQUEL 100 MG TABS 396857 QUETIAPINE FUMARATE Inactive VISTARIL 25 MG CAPS 1-2 tablets three times a day as needed VISTARIL 25 MG CAPS 102208 HYDROXYZINE PAMOATE Inactive METHOCARBAMOL 500 MG TABS 1 to 2 qid prn back spasm METHOCARBAMOL 500 MG TABS 682006 METHOCARBAMOL Inactive QVAR 40 MCG/ACT AERS one puff three times a day as needed QVAR 40 MCG/ACT AERS BECLOMETHASONE DIPROPIONATE Inactive NIX CREME RINSE 1 % LIQD apply as directed carlotta, repeat at 7 days NIX CREME RINSE 1 % LIQD PERMETHRIN Inactive MELOXICAM 15 MG TABS 1 po q day for pain with food MELOXICAM 15 MG TABS 195622 MELOXICAM Inactive ALPRAZOLAM 1 MG TABS 1 tab tid ALPRAZOLAM 1 MG TABS 322365 ALPRAZOLAM Inactive LOMOTIL 2.5-0.025 MG TAB 1 to 2 four times a day as needed for diarrhea 05/28 LOMOTIL 2.5-0.025 MG TAB 2636605 DIPHENOXYLATE-ATROPINE Inactive PREDNISONE 20 MG TAB 2 tabs daily for 5 days, then 1 daily for 5 days PREDNISONE 20 MG TAB 107404 PREDNISONE Inactive TYLENOL WITH CODEINE #3 300-30 MG TABS 1 to 2 four times a day as needed for pain TYLENOL WITH CODEINE #3 300-30 MG TABS ACETAMINOPHEN-CODEINE Inactive PERMETHRIN 5 % CREA applyhead to toes tonight and then rinse off in 18 hours. repeat at 7 days if needed. PERMETHRIN 5 % CREA 076886 PERMETHRIN Inactive CLONAZEPAM 1 MG TABS take at bedtime CLONAZEPAM 1 MG TABS 815437 CLONAZEPAM Inactive FLEXERIL 10 MG TAB 1/2 to one tablet every 12 hours as needed FLEXERIL 10 MG TAB CYCLOBENZAPRINE HCL Inactive CELEXA 20 MG TABS 1and 1/2 tablets by mouth daily CELEXA 20 MG TABS 306298 CITALOPRAM HYDROBROMIDE Inactive AMOXICILLIN 500 MG TABS take one tab po tid x 10 days AMOXICILLIN 500 MG TABS 693543 AMOXICILLIN Inactive TRIAMCINOLONE ACETONIDE 0.1 % CREA apply three times daily prn rash TRIAMCINOLONE ACETONIDE 0.1 % CREA 2985736 TRIAMCINOLONE ACETONIDE Inactive SEROQUEL 100 MG TABS 1 tablet at HS SEROQUEL 100 MG TABS 473356 QUETIAPINE FUMARATE Inactive SEROQUEL 50 MG TABS 1 tablet at HS SEROQUEL 50 MG TABS 781747 QUETIAPINE FUMARATE Inactive HYDROCODONE-ACETAMINOPHEN 5-325 MG TABS 1/2 to 1 po q 4 hours prn pain 11/13 HYDROCODONE-ACETAMINOPHEN 5-325 MG TABS 753057 HYDROCODONE- ACETAMINOPHEN Inactive PREDNISONE 20 MG TABS 1 tablet by mouth twice daily for 2 days, then 1 daily for 2 days PREDNISONE 20 MG TABS 483161 PREDNISONE Inactive GUAIFENESIN-CODEINE 100-10 MG/5ML SYRP 1-2 tsp PO q6h PRN cough GUAIFENESIN-CODEINE 100-10 MG/5ML SYRP 811729 GUAIFENESIN-CODEINE Inactive GUAIFENESIN-CODEINE 100-10 MG/5ML SYRP 1 tsp PO q6h PRN cough GUAIFENESIN-CODEINE 100-10 MG/5ML SYRP 433399 GUAIFENESIN-CODEINE Inactive BACTROBAN 2 % OINTMENT Apply bid to affected area BACTROBAN 2 % OINTMENT 041842 MUPIROCIN Inactive PROMETHAZINE HCL 25 MG TABS take 1 po Q 8 hours prn nausea and vomiting 12/11 PROMETHAZINE HCL 25 MG TABS 559319 PROMETHAZINE HCL Inactive AMOXICILLIN 400 MG/5ML SUSR 6ml three times a day for 10 days AMOXICILLIN 400 MG/5ML SUSR 984037 AMOXICILLIN Inactive LAMISIL AT 1 % CREA apply bid to rash LAMISIL AT 1 % CREA 860601 TERBINAFINE HCL Inactive PROMETHAZINE HCL 25 MG TABS 1 four times a day as needed for nausea/vomiting PROMETHAZINE HCL 25 MG TABS 231908 PROMETHAZINE HCL Inactive GUAIFENESIN-CODEINE 100-10 MG/5ML SYRP 1 tsp PO q6h PRN cough GUAIFENESIN-CODEINE 100-10 MG/5ML SYRP 133681 GUAIFENESIN-CODEINE Inactive KEFLEX 500 MG CAP 1 po qid KEFLEX 500 MG CAP 528952 CEPHALEXIN Inactive GUAIFENESIN-CODEINE 100-10 MG/5ML SYRP 1 tsp PO q6h PRN cough GUAIFENESIN-CODEINE 100-10 MG/5ML SYRP 253495 GUAIFENESIN-CODEINE Inactive TYLENOL WITH CODEINE #3 300-30 MG TABS ONE TABLET FOUR TIMES A DAY NEEDED for pain or cough TYLENOL WITH CODEINE #3 300-30 MG TABS ACETAMINOPHEN-CODEINE Inactive STROMECTOL 3 MG TABS 6 pills by mouth x 1; repeat in 10 days 2012 STROMECTOL 3 MG TABS 680790 IVERMECTIN Inactive LOMOTIL 2.5-0.025 MG TAB 1 to 2 four times a day as needed for diarrhea 01/21 LOMOTIL 2.5-0.025 MG TAB 9503618 DIPHENOXYLATE-ATROPINE Inactive CELEXA 20 MG TABS Take 1.5 tablets daily CELEXA 20 MG TABS 460071 CITALOPRAM HYDROBROMIDE Inactive PERMETHRIN 5 % CREA apply neck to toes tonight and then rinse off in morning. repeat at 7 days PERMETHRIN 5 % CREA 229945 PERMETHRIN Inactive STROMECTOL 3 MG TABS 5 tablets by mouth one time on an empty stomach, may repeat in 2 weeks if needed STROMECTOL 3 MG TABS 622846 IVERMECTIN Inactive BACTRIM DS 800-160 MG TAB 1 tab by mouth twice daily BACTRIM DS 800-160 MG TAB 583905 TRIMETHOPRIM-SULFAMETHOXAZOLE Inactive SEROQUEL 200 MG TABS 1 tablet at bedtime. SEROQUEL 200 MG TABS 834525 QUETIAPINE FUMARATE Inactive CYCLOBENZAPRINE HCL 10 MG TABS 1 three times a day as needed for back spasm CYCLOBENZAPRINE HCL 10 MG TABS 698166 CYCLOBENZAPRINE HCL Inactive HYDROXYZINE HCL 10 MG TABS 1 to 2 three times a day as needed for itching HYDROXYZINE HCL 10 MG TABS 994952 HYDROXYZINE HCL Inactive TESSALON PERLES 100 MG CAP 1 tablet by mouth 3 times daily 01/20 TESSALON PERLES 100 MG CAP 081157 BENZONATATE Inactive CYCLOBENZAPRINE HCL 10 MG TABS 1/2 to 1 tablet by mouth three times daily as needed for muscle spasm/pain CYCLOBENZAPRINE HCL 10 MG TABS 392907 CYCLOBENZAPRINE HCL Inactive CYCLOBENZAPRINE HCL 10 MG TABS 1/2 to 1 tablet every 4 hours CYCLOBENZAPRINE HCL 10 MG TABS 195062 CYCLOBENZAPRINE HCL Inactive LATUDA 20 MG TABS 1 tab at at night with meal LATUDA 20 MG TABS LURASIDONE HCL Inactive IBUPROFEN 600 MG TAB 1 tablet three times a day as needed IBUPROFEN 600 MG TAB 572144 IBUPROFEN Inactive PROAIR HFA 108 (90 BASE) MCG/ACT AERS 2 puffs four times a day as needed 2011 PROAIR HFA 108 (90 BASE) MCG/ACT AERS ALBUTEROL SULFATE Inactive FETZIMA 40 MG ORAL [id number] FETZIMA 40 MG ORAL [id number] LEVOMILNACIPRAN HCL Inactive SEROQUEL 200 MG ORAL TABS Take 1 tablet at hs SEROQUEL 200 MG ORAL TABS 449698 QUETIAPINE FUMARATE Inactive AMOXICILLIN 500 MG TABS 2 tabs twice a day for 10 days AMOXICILLIN 500 MG TABS 484288 AMOXICILLIN Inactive PROMETHAZINE HCL 25 MG TABS 1 four times a day as needed for vomiting PROMETHAZINE HCL 25 MG TABS 372458 PROMETHAZINE HCL Inactive KLONOPIN 1 MG TABS 1 tablet TID KLONOPIN 1 MG TABS 192602 CLONAZEPAM Inactive PROAIR HFA 108 (90 BASE) MCG/ACT AERS 2 puffs four times a day as needed 2015 PROAIR HFA 108 (90 BASE) MCG/ACT AERS ALBUTEROL SULFATE Inactive BACTRIM DS 800-160 MG TAB 1 tab by mouth twice daily BACTRIM DS 800-160 MG TAB 194254 TRIMETHOPRIM-SULFAMETHOXAZOLE Inactive AMOXICILLIN 400 MG/5ML SUSR 5ml po TID x 10 days AMOXICILLIN 400 MG/5ML SUSR 604022 AMOXICILLIN Inactive FLAGYL 500 MG TABS four tabs PO one time FLAGYL 500 MG TABS 323769 METRONIDAZOLE Inactive AMOXICILLIN 500 MG TABS Take one tab by mouth 3 times daily, morning, afternoon and evening for 7 days. AMOXICILLIN 500 MG TABS 078932 AMOXICILLIN Inactive AMOXICILLIN 500 MG CAPS 2 po BID x 10 days AMOXICILLIN 500 MG CAPS 167287 AMOXICILLIN Inactive AMOXICILLIN 500 MG CAPS 2 po BID x 10 days AMOXICILLIN 500 MG CAPS 850714 AMOXICILLIN Inactive PENICILLIN V POTASSIUM 500 MG TABS 1 TID PENICILLIN V POTASSIUM 500 MG TABS 942052 PENICILLIN V POTASSIUM Inactive BACTRIM DS 800-160 MG TABS 1 po BID x 10 days BACTRIM DS 800-160 MG TABS 469308 SULFAMETHOXAZOLE-TRIMETHOPRIM Inactive ZITHROMAX 250 MG TAB 2 po today, then 1 po q days 2-5 ZITHROMAX 250 MG TAB 0826179 AZITHROMYCIN Inactive TAMIFLU 75 MG CAPS 1 bid x 5 days TAMIFLU 75 MG CAPS 967405 OSELTAMIVIR PHOSPHATE Inactive AZITHROMYCIN 250 MG TABS 2 po qd x 1 day, then 1 po qd x 4 days AZITHROMYCIN 250 MG TABS 3024759 AZITHROMYCIN Inactive MEDROL (NISA) 4 MG TABS 6 tabs on day 1, 5 tabs on day 2, 4 tabs on day 3, 3 tabs on day 4, 2 tabs on day 5, 1 tab on day 6 MEDROL ( NISA) 4 MG TABS 851329 METHYLPREDNISOLONE Inactive SUPRAX 400 MG CAPS Take one tablet twice daily for 7 days SUPRAX 400 MG CAPS CEFIXIME Inactive AMITRIPTYLINE HCL 50 MG TAB 1 po q hs for sleep AMITRIPTYLINE HCL 50 MG TAB 395148 AMITRIPTYLINE HCL Inactive ZITHROMAX 250 MG TAB 2 po today, then 1 po q days 2-5 ZITHROMAX 250 MG TAB 8553726 AZITHROMYCIN Inactive Immunizations Vaccine Administration Date Value Standard Description Seasonal influenza vaccine, injectable, containing preservative, for > 3 years old (Afluria, FluLaval, Fluzone, Fluvirin, Fluarix, Agriflu(>=18 yo)) Fluzone (>3 yrs.) [VNL369] Influenza, seasonal, injectable pneumococcal immunization administered Pneumovax 23 [CVX33] pneumococcal polysaccharide vaccine, 23 valent Seasonal influenza vaccine, injectable, containing preservative, for > 3 years old (Afluria, FluLaval, Fluzone, Fluvirin, Fluarix, Agriflu(>=18 yo)) Fluzone (>3 yrs.) [ESI564] Influenza, seasonal, injectable Seasonal influenza vaccine, injectable, containing preservative, for > 3 years old (Afluria, FluLaval, Fluzone, Fluvirin, Fluarix, Agriflu(>=18 yo)) Fluzone (>3 yrs.) [XXV108] Influenza, seasonal, injectable hepatitis B vaccine #1 [...] Measured Encounters Code Encounter Date Provider Facility CPT-31837 Level 3 Est. Patient 16:47:47 CDT Renetta Ryan [facility] CPT-54008 Level 3 Est. Patient 11:04:11 EARLY EDUCATION TEACHER Jani Marrero MD [facility] CPT-42866 Level 3 Est. Patient 12:02:27 EARLY EDUCATION TEACHER Andrei Nichols MD [facility] CPT-53067 Level 3 Est. Patient 12:47:17 EARLY EDUCATION TEACHER Andrei Nichols MD [facility] CPT-09011 Level 3 Est. Patient 14:51:20 EARLY EDUCATION TEACHER Shikha Randolph [facility] [place][note 2] CPT-40664 Level 3 Est. Patient 10:42:38 CDT Shikha Randolph [facility] [place][note 2] CPT-88794 Level 3 Est. Patient 18:20:39 CDT Prisca Lockwood MD PhD [facility]-23895 Level 3 Est. Patient 16:42:47 EARLY EDUCATION TEACHER Rosalie Boyd [facility] [place][note 2] CPT-21030 Level 3 Est. Patient 14:34:36 EARLY EDUCATION TEACHER Rosalie Boyd [facility] CPT-18269 Level 4 Est. Patient 10:23:07 EARLY EDUCATION TEACHER Andrei Nichols MD [facility]-83292 Level 3 Est. Patient 16:47:31 EARLY EDUCATION TEACHER Andrei Nichols MD [facility]-20081 Level 3 Est. Patient 11:59:14 CDT Rosalie Oliver [facility]-93666 Level 3 Est. Patient 15:30:34 CDT Giovany URBINA [facility]-39101 Level 3 Est. Patient 11:03:03 CDT Rosalie Boyd [facility] [place][note 2] CPT-78563 Level 3 Est. Patient 11:08:07 CDT Rosalie Boyd [facility]-85734 Level 3 Est. Patient 14:07:32 CDT Andrei Nichols MD [facility]-72542 Level 3 Est. Patient 17:08:28 CDT Andrei Nichols MD [facility]-34593 Level 3 Est. Patient 13:10:13 CDT Jani Marrero MD [facility]-08346 Level 3 Est. Patient 11:27:12 CDT Jani Marrero MD [facility]-80753 Level 3 Est. Patient 13:44:42 CDT Andrei Nichols MD [facility]-55173 Level 3 Est. Patient 12:34:57 EARLY EDUCATION TEACHER Andrei Nichols MD [facility] CPT-11552 Level 3 Est. Patient 15:30:06 CDT Jani Marrero MD [facility] CPT-00170 Level 3 Est. Patient 21:59:00 CDT Corky Mckeon [facility] CPT-11442 Level 3 Est. Patient 17:12:49 CDT Andrei Nichols MD [facility] CPT-24462 Level 4 Est. Patient 12:27:45 EARLY EDUCATION TEACHER Andrei Nichols MD [facility] CPT-73015 Level 3 Est. Patient 12:15:34 EARLY EDUCATION TEACHER Andrei Nichols MD [facility] Procedures Code Procedure Name Date Entry Date Standard Description CPT-12185 Knee, left, 3V - XRAY USE ONLY 14:53:02 CDT CPT-OV Office Visit 11:36:40 CDT CPT-57847 Administration 2+ single or combination vaccines inc oral 07:50:30 CDT CPT-63005 Administration single or combination vaccine inc oral 07 :50:30 CDT CPT-76306 Pneumovax 07:50:30 CDT CPT-53953 Influenza split virus > age 3 07:50:30 CDT CPT-OV Office Visit 11:49:10 EARLY EDUCATION TEACHER CPT-86592 Nexplanon Removal with Reinsertion 14:02:06 EARLY EDUCATION TEACHER CPT-J7307 Nexplanon (Implant) 14:02:06 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
--- OUTSIDE RECORDS SUMMARY | 2017-01-02 18:35 | XMS REPORT | Clinical Summary ---
Author Author Admin, JAVIER Organization [facility] Address Unknown Phone Unavailable Allergies, [...] Diarrhea Dental caries 521.00 Resolved Shikha Yomelanieum NURSE PRACTITIONER HOME ASSESSMENTS Dental caries, unspecified Tooth pain 525.9 Resolved Prisca Lockwood MD PhD Unspecified disorder of the teeth and supporting structures Head lice 132.0 Resolved Prisca Lockwood MD PhD Pediculus capitis [head louse] Upper respiratory infection 465.9 Resolved Prisca Lockwood MD PhD Acute upper respiratory infections of unspecified site Sinusitis, frontal, acute 461.1 Resolved Shikha Yokum NURSE PRACTITIONER HOME ASSESSMENTS Acute frontal sinusitis Pharyngitis 462 Resolved Shikha Yokum NURSE PRACTITIONER HOME ASSESSMENTS Acute pharyngitis Scabies 133.0 Resolved Shikha Yokum NURSE PRACTITIONER HOME ASSESSMENTS Scabies Folliculitis 704.8 Resolved Shikha Yokum NURSE PRACTITIONER HOME ASSESSMENTS Other specified diseases of hair and hair [...] TEETH&SUPPORTING STRUCTURES ICD-525.9 12/29 Inactive Shikha Randolph NURSE PRACTITIONER HOME ASSESSMENTS PHARYNGITIS-ACUTE ICD-462 Inactive Rosalie Boyd NURSE PRACTITIONER HOME ASSESSMENTS DIARRHEA ICD-787.91 Inactive Andrei Nichols MD SHOULDER PAIN ICD-719.41 Inactive Shikha Randolph NURSE PRACTITIONER HOME ASSESSMENTS NAUSEA AND VOMITING ICD-787.01 Inactive Andrei Nichols [...] PhD Dental caries ICD-521.00 Inactive Shikha Randolph NURSE PRACTITIONER HOME ASSESSMENTS Tooth pain ICD-525.9 Inactive Prisca Lockwood MD PhD Head lice ICD-132.0 Inactive Prisca Lockwood MD PhD Upper respiratory infection ICD-465.9 Inactive Prisca Lockwood MD PhD Sinusitis, frontal, acute ICD-461.1 Inactive Shikha Yokum NURSE PRACTITIONER HOME ASSESSMENTS Pharyngitis ICD-462 Inactive Shikha Yokum NURSE PRACTITIONER HOME ASSESSMENTS 2013 Scabies ICD-133.0 Inactive Shikha Yokum NURSE PRACTITIONER HOME ASSESSMENTS 12/29 Folliculitis ICD-704.8 Inactive Shikha Yokum NURSE PRACTITIONER HOME ASSESSMENTS Cough ICD-786.2 Inactive Andrei Nichols MD Medication List Medication Instructions Start Date Stop Date Generic Name NDC Status Provider Patient Instruction PROAIR HFA 108 (90 BASE) MCG/ACT AERS 2 puffs four times a day as needed 2015 ALBUTEROL SULFATE [id number] Active Andrei Nichols MD Active KLONOPIN 1 MG TABS 1 tablet TID CLONAZEPAM 42418604884 Active Andrei Nichols MD Active AMOXICILLIN 500 MG TABS 2 tabs twice a day for 10 days AMOXICILLIN 16835842656 Active Andrei Nichols MD Active SEROQUEL 200 MG ORAL TABS Take 1 tablet at hs QUETIAPINE FUMARATE 04672902784 Active Andrei Nichols MD Active PROMETHAZINE HCL 25 MG TABS 1 four times a day as needed for vomiting PROMETHAZINE HCL 06524853361 Active Andrei Nichols MD Active FETZIMA 40 MG ORAL [id number] LEVOMILNACIPRAN HCL 02888345175 Active Alondra Denton MD Active PROAIR HFA 108 (90 BASE) MCG/ACT AERS 2 puffs four times a day as needed 2011 ALBUTEROL SULFATE 58998566336 No Longer Active Alondra Denton MD Active IBUPROFEN 600 MG TAB 1 tablet three times a day as needed IBUPROFEN 58696880488 No Longer Active Alondra Denton MD Active LATUDA 20 MG TABS 1 tab at at night with meal LURASIDONE HCL 08073094671 No Longer Active Alondra Denton MD Active CYCLOBENZAPRINE HCL 10 MG TABS 1/2 to 1 tablet every 4 hours CYCLOBENZAPRINE HCL 37082347432 No Longer Active Alondra Denton MD Active CYCLOBENZAPRINE HCL 10 MG TABS 1/2 to 1 tablet by mouth three times daily as needed for muscle spasm/pain CYCLOBENZAPRINE HCL 16236080681 No Longer Active Alondra Denton MD Active SUPRAX 400 MG CAPS Take one tablet twice daily for 7 days CEFIXIME 34711655739 No Longer Active Shikha Yokum NURSE PRACTITIONER HOME ASSESSMENTS Active TESSALON PERLES 100 MG CAP 1 tablet by mouth 3 times daily 01/20 BENZONATATE 17979517147 No Longer Active Shikha Yokum NURSE PRACTITIONER HOME ASSESSMENTS Active HYDROXYZINE HCL 10 MG TABS 1 to 2 three times a day as needed for itching HYDROXYZINE HCL 13645888500 No Longer Active Shikha Yokum NURSE PRACTITIONER HOME ASSESSMENTS Active CYCLOBENZAPRINE HCL 10 MG TABS 1 three times a day as needed for back spasm CYCLOBENZAPRINE HCL 11025812527 No Longer Active Shikha Yokum NURSE PRACTITIONER HOME ASSESSMENTS Active SEROQUEL 200 MG TABS 1 tablet at bedtime. QUETIAPINE FUMARATE 95205247415 No Longer Active Shikha Yokum NURSE PRACTITIONER HOME ASSESSMENTS Active BACTRIM DS 800-160 MG TAB 1 tab by mouth twice daily TRIMETHOPRIM-SULFAMETHOXAZOLE 12546783108 No Longer Active Shikha Yokum NURSE PRACTITIONER HOME ASSESSMENTS Active STROMECTOL 3 MG TABS 5 tablets by mouth one time on an empty stomach, may repeat in 2 weeks if needed IVERMECTIN 58962418328 No Longer Active Shikha Randolph APRN Active PERMETHRIN 5 % CREA apply neck to toes tonight and then rinse off in morning. repeat at 7 days PERMETHRIN 55516004411 No Longer Active Andrei Nichols MD Active MEDROL (NISA) 4 MG TABS 6 tabs on day 1, 5 tabs on day 2, 4 tabs on day 3, 3 tabs on day 4, 2 tabs on day 5, 1 tab on day 6 METHYLPREDNISOLONE 17335253058 No Longer Active Prisca Lockwood MD PhD Active AZITHROMYCIN 250 MG TABS 2 po qd x 1 day, then 1 po qd x 4 days AZITHROMYCIN 21879269860 No Longer Active Prisca Lockwood MD PhD Active CELEXA 20 MG TABS Take 1.5 tablets daily CITALOPRAM HYDROBROMIDE 32908939218 No Longer Active Prisca Lockwood MD PhD Active LOMOTIL 2.5-0.025 MG TAB 1 to 2 four times a day as needed for diarrhea 01/21 DIPHENOXYLATE-ATROPINE 93422269720 No Longer Active Prisca Lockwood MD PhD Active TAMIFLU 75 MG CAPS 1 bid x 5 days OSELTAMIVIR PHOSPHATE 32118576617 No Longer Active Rosalie Boyd APRN Active ZITHROMAX 250 MG TAB 2 po today, then 1 po q days 2-5 AZITHROMYCIN 35114514715 No Longer Active Rosalie Boyd APRN Active STROMECTOL 3 MG TABS 6 pills by mouth x 1; repeat in 10 days 2012 IVERMECTIN 30262462242 No Longer Active Rosalie Boyd APRN Active TYLENOL WITH CODEINE #3 300-30 MG TABS ONE TABLET FOUR TIMES A DAY NEEDED for pain or cough ACETAMINOPHEN-CODEINE 87778907653 No Longer Active Rosalie Boyd APRN Active GUAIFENESIN-CODEINE 100-10 MG/5ML SYRP 1 tsp PO q6h PRN cough GUAIFENESIN-CODEINE 62637675404 No Longer Active Rosalie Boyd APRN Active KEFLEX 500 MG CAP 1 po qid CEPHALEXIN 27180143886 No Longer Active Rosalie Boyd APRN Active GUAIFENESIN-CODEINE 100-10 MG/5ML SYRP 1 tsp PO q6h PRN cough GUAIFENESIN-CODEINE 05751390910 No Longer Active Rosalie Boyd APRN Active PROMETHAZINE HCL 25 MG TABS 1 four times a day as needed for nausea/vomiting PROMETHAZINE HCL 21962588738 No Longer Active Rosalie Boyd APRN Active LAMISIL AT 1 % CREA apply bid to rash TERBINAFINE HCL 99857950280 No Longer Active Andrei Nichols MD Active AMOXICILLIN 400 MG/5ML SUSR 6ml three times a day for 10 days AMOXICILLIN 89887492726 No Longer Active Andrei Nichols MD Active PROMETHAZINE HCL 25 MG TABS take 1 po Q 8 hours prn nausea and vomiting 12/11 PROMETHAZINE HCL 03134001107 No Longer Active Andrei Nichols MD Active BACTROBAN 2 % OINTMENT Apply bid to affected area MUPIROCIN 79593579838 No Longer Active Andrei Nichols MD Active GUAIFENESIN-CODEINE 100-10 MG/5ML SYRP 1 tsp PO q6h PRN cough GUAIFENESIN-CODEINE 47249851097 No Longer Active Andrei Nichols MD Active BACTRIM DS 800-160 MG TABS 1 po BID x 10 days SULFAMETHOXAZOLE-TRIMETHOPRIM 10725435941 No Longer Active Rosalie Boyd APRN Active GUAIFENESIN-CODEINE 100-10 MG/5ML SYRP 1-2 tsp PO q6h PRN cough GUAIFENESIN-CODEINE 02442828862 No Longer Active Giovany URBINA Active PREDNISONE 20 MG TABS 1 tablet by mouth twice daily for 2 days, then 1 daily for 2 days PREDNISONE 42305379814 No Longer Active Giovany URBINA Active HYDROCODONE-ACETAMINOPHEN 5-325 MG TABS 1/2 to 1 po q 4 hours prn pain 11/13 HYDROCODONE-ACETAMINOPHEN 37423275491 No Longer Active Rosalie Boyd NURSE PRACTITIONER HOME ASSESSMENTS Active PENICILLIN V POTASSIUM 500 MG TABS 1 TID PENICILLIN V POTASSIUM 89206413061 No Longer Active Andrei Nichols MD Active SEROQUEL 50 MG TABS 1 tablet at HS QUETIAPINE FUMARATE 47720782160 No Longer Active Andrei Nichols MD Active SEROQUEL 100 MG TABS 1 tablet at HS QUETIAPINE FUMARATE 22419946300 No Longer Active Andrei Nichols MD Active TRIAMCINOLONE ACETONIDE 0.1 % CREA apply three times daily prn rash TRIAMCINOLONE ACETONIDE 22144408940 No Longer Active Andrei Nichols MD Active AMOXICILLIN 500 MG TABS take one tab po tid x 10 days AMOXICILLIN 87257213216 No Longer Active Andrei Nichols MD Active CELEXA 20 MG TABS 1and 1/2 tablets by mouth daily CITALOPRAM HYDROBROMIDE 76644356232 No Longer Active Ary Kirk PA Active FLEXERIL 10 MG TAB 1/2 to one tablet every 12 hours as needed CYCLOBENZAPRINE HCL 11446575149 No Longer Active Ary Kirk PA Active CLONAZEPAM 1 MG TABS take at bedtime CLONAZEPAM 87953908834 No Longer Active Ary Pool PA Active PERMETHRIN 5 % CREA applyhead to toes tonight and then rinse off in 18 hours. repeat at 7 days if needed. PERMETHRIN 27432373357 No Longer Active Ary Kirk PA Active AMOXICILLIN 500 MG CAPS 2 po BID x 10 days AMOXICILLIN 17175697668 No Longer Active Andrei Nichols MD Active TYLENOL WITH CODEINE #3 300-30 MG TABS 1 to 2 four times a day as needed for pain ACETAMINOPHEN-CODEINE 02967307112 No Longer Active Reta Hampton Active PREDNISONE 20 MG TAB 2 tabs daily for 5 days, then 1 daily for 5 days PREDNISONE 69699357164 No Longer Active Reta Hampton Active LOMOTIL 2.5-0.025 MG TAB 1 to 2 four times a day as needed for diarrhea 05/28 DIPHENOXYLATE-ATROPINE 78202036914 No Longer Active Reta Hampton Active ALPRAZOLAM 1 MG TABS 1 tab tid ALPRAZOLAM 94117092165 No Longer Active Reta Hampton Active AMOXICILLIN 500 MG CAPS 2 po BID x 10 days AMOXICILLIN 06424899334 No Longer Active Andrei Nichols MD Active AMOXICILLIN 500 MG TABS Take one tab by mouth 3 times daily, morning, afternoon and evening for 7 days. AMOXICILLIN 59709712561 No Longer Active Virginia Alejandra RN Active VICODIN 5-300 MG TABS one tab PO Q 6 hours PRN pain HYDROCODONE-ACETAMINOPHEN 70575481023 No Longer Active Virginia Alejandra RN Active FLAGYL 500 MG TABS four tabs PO one time METRONIDAZOLE 13020060195 No Longer Active Alondra Denton MD Active MELOXICAM 15 MG TABS 1 po q day for pain with food MELOXICAM 05392167207 No Longer Active Alondra Denton MD Active AMOXICILLIN 400 MG/5ML SUSR 5ml po TID x 10 days AMOXICILLIN 13701254256 No Longer Active Jani Marrero MD Active NIX CREME RINSE 1 % LIQD apply as directed tonight, repeat at 7 days PERMETHRIN 84999482648 No Longer Active Corky Mckeon DO Active QVAR 40 MCG/ACT AERS one puff three times a day as needed BECLOMETHASONE DIPROPIONATE 37000369652 No Longer Active Andrei Nichols MD Active METHOCARBAMOL 500 MG TABS 1 to 2 qid prn back spasm METHOCARBAMOL 34609057908 No Longer Active Andrei Nichols MD Active VISTARIL 25 MG CAPS 1-2 tablets three times a day as needed HYDROXYZINE PAMOATE 06701475211 No Longer Active Andrei Nichols MD Active SEROQUEL 100 MG TABS 1/2 TABLET at hs QUETIAPINE FUMARATE 01458919000 No Longer Active Aicha Rizzo RN Active BACTRIM DS 800-160 MG TAB 1 tab by mouth twice daily TRIMETHOPRIM-SULFAMETHOXAZOLE 28958110594 No Longer Active Prisca Lockwood MD PhD Active CYCLOBENZAPRINE HCL 10 MG TABS TAKE 1/2 - 1 TAB EVERY 12 HOURS NEEDED 2010 CYCLOBENZAPRINE HCL 75309176554 No Longer Active Andrei Nichols MD Active CYCLOBENZAPRINE HCL 10 MG TABS TAKE 1/2 - 1 TAB EVERY 12 HOURS NEEDED 2010 CYCLOBENZAPRINE HCL 10 MG TABS 365443 CYCLOBENZAPRINE HCL Inactive SEROQUEL 100 MG TABS 1/2 TABLET at hs SEROQUEL 100 MG TABS 267722 QUETIAPINE FUMARATE Inactive VISTARIL 25 MG CAPS 1-2 tablets three times a day as needed VISTARIL 25 MG CAPS 890072 HYDROXYZINE PAMOATE Inactive METHOCARBAMOL 500 MG TABS 1 to 2 qid prn back spasm METHOCARBAMOL 500 MG TABS 093424 METHOCARBAMOL Inactive QVAR 40 MCG/ACT AERS one puff three times a day as needed QVAR 40 MCG/ACT AERS BECLOMETHASONE DIPROPIONATE Inactive NIX CREME RINSE 1 % LIQD apply as directed tonight, repeat at 7 days NIX CREME RINSE 1 % LIQD PERMETHRIN Inactive MELOXICAM 15 MG TABS 1 po q day for pain with food MELOXICAM 15 MG TABS 471533 MELOXICAM Inactive ALPRAZOLAM 1 MG TABS 1 tab tid ALPRAZOLAM 1 MG TABS 313642 ALPRAZOLAM Inactive LOMOTIL 2.5-0.025 MG TAB 1 to 2 four times a day as needed for diarrhea 05/28 LOMOTIL 2.5-0.025 MG TAB 4111066 DIPHENOXYLATE-ATROPINE Inactive PREDNISONE 20 MG TAB 2 tabs daily for 5 days, then 1 daily for 5 days PREDNISONE 20 MG TAB 795564 PREDNISONE Inactive TYLENOL WITH CODEINE #3 300-30 MG TABS 1 to 2 four times a day as needed for pain TYLENOL WITH CODEINE #3 300-30 MG TABS 516400 ACETAMINOPHEN-CODEINE Inactive PERMETHRIN 5 % CREA applyhead to toes tonight and then rinse off in 18 hours. repeat at 7 days if needed. PERMETHRIN 5 % CREA 861830 PERMETHRIN Inactive CLONAZEPAM 1 MG TABS take at bedtime CLONAZEPAM 1 MG TABS 402765 CLONAZEPAM Inactive FLEXERIL 10 MG TAB 1/2 to one tablet every 12 hours as needed FLEXERIL 10 MG TAB CYCLOBENZAPRINE HCL Inactive CELEXA 20 MG TABS 1and 1/2 tablets by mouth daily CELEXA 20 MG TABS 015711 CITALOPRAM HYDROBROMIDE Inactive AMOXICILLIN 500 MG TABS take one tab po tid x 10 days AMOXICILLIN 500 MG TABS 672185 AMOXICILLIN Inactive TRIAMCINOLONE ACETONIDE 0.1 % CREA apply three times daily prn rash TRIAMCINOLONE ACETONIDE 0.1 % CREA 7211068 TRIAMCINOLONE ACETONIDE Inactive SEROQUEL 100 MG TABS 1 tablet at HS SEROQUEL 100 MG TABS 485762 QUETIAPINE FUMARATE Inactive SEROQUEL 50 MG TABS 1 tablet at HS SEROQUEL 50 MG TABS 671694 QUETIAPINE FUMARATE Inactive HYDROCODONE-ACETAMINOPHEN 5-325 MG TABS 1/2 to 1 po q 4 hours prn pain 11/13 HYDROCODONE-ACETAMINOPHEN 5-325 MG TABS 033368 HYDROCODONE- ACETAMINOPHEN Inactive PREDNISONE 20 MG TABS 1 tablet by mouth twice daily for 2 days, then 1 daily for 2 days PREDNISONE 20 MG TABS 124640 PREDNISONE Inactive GUAIFENESIN-CODEINE 100-10 MG/5ML SYRP 1-2 tsp PO q6h PRN cough GUAIFENESIN-CODEINE 100-10 MG/5ML SYRP 833010 GUAIFENESIN-CODEINE Inactive GUAIFENESIN-CODEINE 100-10 MG/5ML SYRP 1 tsp PO q6h PRN cough GUAIFENESIN-CODEINE 100-10 MG/5ML SYRP 852743 GUAIFENESIN-CODEINE Inactive BACTROBAN 2 % OINTMENT Apply bid to affected area BACTROBAN 2 % OINTMENT 407733 MUPIROCIN Inactive PROMETHAZINE HCL 25 MG TABS take 1 po Q 8 hours prn nausea and vomiting 12/11 PROMETHAZINE HCL 25 MG TABS 557777 PROMETHAZINE HCL Inactive AMOXICILLIN 400 MG/5ML SUSR 6ml three times a day for 10 days AMOXICILLIN 400 MG/5ML SUSR 958080 AMOXICILLIN Inactive LAMISIL AT 1 % CREA apply bid to rash LAMISIL AT 1 % CREA 518793 TERBINAFINE HCL Inactive PROMETHAZINE HCL 25 MG TABS 1 four times a day as needed for nausea/vomiting PROMETHAZINE HCL 25 MG TABS 482336 PROMETHAZINE HCL Inactive GUAIFENESIN-CODEINE 100-10 MG/5ML SYRP 1 tsp PO q6h PRN cough GUAIFENESIN-CODEINE 100-10 MG/5ML SYRP 604779 GUAIFENESIN-CODEINE Inactive KEFLEX 500 MG CAP 1 po qid KEFLEX 500 MG CAP 694003 CEPHALEXIN Inactive GUAIFENESIN-CODEINE 100-10 MG/5ML SYRP 1 tsp PO q6h PRN cough GUAIFENESIN-CODEINE 100-10 MG/5ML SYRP 717367 GUAIFENESIN-CODEINE Inactive TYLENOL WITH CODEINE #3 300-30 MG TABS ONE TABLET FOUR TIMES A DAY NEEDED for pain or cough TYLENOL WITH CODEINE #3 300-30 MG TABS 816685 ACETAMINOPHEN-CODEINE Inactive STROMECTOL 3 MG TABS 6 pills by mouth x 1; repeat in 10 days 2012 STROMECTOL 3 MG TABS 803540 IVERMECTIN Inactive LOMOTIL 2.5-0.025 MG TAB 1 to 2 four times a day as needed for diarrhea 01/21 LOMOTIL 2.5-0.025 MG TAB 0587104 DIPHENOXYLATE-ATROPINE Inactive CELEXA 20 MG TABS Take 1.5 tablets daily CELEXA 20 MG TABS 969000 CITALOPRAM HYDROBROMIDE Inactive PERMETHRIN 5 % CREA apply neck to toes tonight and then rinse off in morning. repeat at 7 days PERMETHRIN 5 % CREA 447604 PERMETHRIN Inactive STROMECTOL 3 MG TABS 5 tablets by mouth one time on an empty stomach, may repeat in 2 weeks if needed STROMECTOL 3 MG TABS 207824 IVERMECTIN Inactive BACTRIM DS 800-160 MG TAB 1 tab by mouth twice daily BACTRIM DS 800-160 MG TAB 196259 TRIMETHOPRIM-SULFAMETHOXAZOLE Inactive SEROQUEL 200 MG TABS 1 tablet at bedtime. SEROQUEL 200 MG TABS 121990 QUETIAPINE FUMARATE Inactive CYCLOBENZAPRINE HCL 10 MG TABS 1 three times a day as needed for back spasm CYCLOBENZAPRINE HCL 10 MG TABS 289245 CYCLOBENZAPRINE HCL Inactive HYDROXYZINE HCL 10 MG TABS 1 to 2 three times a day as needed for itching HYDROXYZINE HCL 10 MG TABS 570971 HYDROXYZINE HCL Inactive TESSALON PERLES 100 MG CAP 1 tablet by mouth 3 times daily 01/20 TESSALON PERLES 100 MG CAP 878661 BENZONATATE Inactive CYCLOBENZAPRINE HCL 10 MG TABS 1/2 to 1 tablet by mouth three times daily as needed for muscle spasm/pain CYCLOBENZAPRINE HCL 10 MG TABS 334744 CYCLOBENZAPRINE HCL Inactive CYCLOBENZAPRINE HCL 10 MG TABS 1/2 to 1 tablet every 4 hours CYCLOBENZAPRINE HCL 10 MG TABS 640046 CYCLOBENZAPRINE HCL Inactive LATUDA 20 MG TABS 1 tab at at night with meal LATUDA 20 MG TABS LURASIDONE HCL Inactive IBUPROFEN 600 MG TAB 1 tablet three times a day as needed IBUPROFEN 600 MG TAB 819810 IBUPROFEN Inactive PROAIR HFA 108 (90 BASE) MCG/ACT AERS 2 puffs four times a day as needed 2011 PROAIR HFA 108 (90 BASE) MCG/ACT AERS ALBUTEROL SULFATE Inactive BACTRIM DS 800-160 MG TAB 1 tab by mouth twice daily BACTRIM DS 800-160 MG TAB 669824 TRIMETHOPRIM-SULFAMETHOXAZOLE Inactive AMOXICILLIN 400 MG/5ML SUSR 5ml po TID x 10 days AMOXICILLIN 400 MG/5ML SUSR 593556 AMOXICILLIN Inactive FLAGYL 500 MG TABS four tabs PO one time FLAGYL 500 MG TABS 639574 METRONIDAZOLE Inactive AMOXICILLIN 500 MG TABS Take one tab by mouth 3 times daily, morning, afternoon and evening for 7 days. AMOXICILLIN 500 MG TABS 812901 AMOXICILLIN Inactive AMOXICILLIN 500 MG CAPS 2 po BID x 10 days AMOXICILLIN 500 MG CAPS 907344 AMOXICILLIN Inactive AMOXICILLIN 500 MG CAPS 2 po BID x 10 days AMOXICILLIN 500 MG CAPS 281615 AMOXICILLIN Inactive PENICILLIN V POTASSIUM 500 MG TABS 1 TID PENICILLIN V POTASSIUM 500 MG TABS 228041 PENICILLIN V POTASSIUM Inactive BACTRIM DS 800-160 MG TABS 1 po BID x 10 days BACTRIM DS 800-160 MG TABS 220261 SULFAMETHOXAZOLE-TRIMETHOPRIM Inactive ZITHROMAX 250 MG TAB 2 po today, then 1 po q days 2-5 ZITHROMAX 250 MG TAB 7485377 AZITHROMYCIN Inactive TAMIFLU 75 MG CAPS 1 bid x 5 days TAMIFLU 75 MG CAPS OSELTAMIVIR PHOSPHATE Inactive AZITHROMYCIN 250 MG TABS 2 po qd x 1 day, then 1 po qd x 4 days AZITHROMYCIN 250 MG TABS 3819466 AZITHROMYCIN Inactive MEDROL (NISA) 4 MG TABS [...] Fluvirin, Fluarix, Agriflu(>=18 yo)) Fluzone (>3 yrs.) [[id number]] Influenza, seasonal, injectable pneumococcal immunization administered Pneumovax 23 [CVX33] pneumococcal polysaccharide vaccine, 23 valent Seasonal influenza vaccine, injectable, containing preservative, for > 3 years old (Afluria, FluLaval, Fluzone, Fluvirin, Fluarix, Agriflu(>=18 yo)) Fluzone (>3 yrs.) [AJY626] Influenza, seasonal, injectable Seasonal influenza vaccine, injectable, containing preservative, for > 3 years old (Afluria, FluLaval, Fluzone, Fluvirin, Fluarix, Agriflu(>=18 yo)) Fluzone (>3 yrs.) [WJE202] Influenza, seasonal, injectable hepatitis B vaccine #1 [...] Measured Encounters Code Encounter Date Provider Facility CPT-24709 Level 3 Est. Patient 12:02:27 CANDY BAR ATTENDANT Andrei Nichols MD [facility] CPT-14776 Level 3 Est. Patient 12:47:17 CANDY BAR ATTENDANT Andrei Nichols MD [facility] CPT-39345 Level 3 Est. Patient 14:51:20 CANDY BAR ATTENDANT Shikha Randolph [facility] [place] CPT-07253 Level 3 Est. Patient 10:42:38 CDT Shikha Randolph [facility] [place] CPT-49055 Level 3 Est. Patient 18:20:39 CDT Prisca Lockwood MD PhD [facility] CPT-33698 Level 3 Est. Patient 16:42:47 CANDY BAR ATTENDANT Rosalie Boyd [facility] [place] CPT-16373 Level 3 Est. Patient 14:34:36 CANDY BAR ATTENDANT Rosalie Boyd [facility] CPT-60662 Level 4 Est. Patient 10:23:07 CANDY BAR ATTENDANT Andrei Nichols MD [facility] CPT-49353 Level 3 Est. Patient 16:47:31 CANDY BAR ATTENDANT Andrei Nichols MD [facility] CPT-06301 Level 3 Est. Patient 11:59:14 CDT Rosalie Boyd [facility] [place] CPT-21864 Level 3 Est. Patient 15:30:34 CDT Giovany URBINA [facility] CPT-09263 Level 3 Est. Patient 11:03:03 CDT Rosalie Boyd [facility] [place] CPT-96454 Level 3 Est. Patient 11:08:07 CDT Rosalie Boyd [facility] CPT-77560 Level 3 Est. Patient 14:07:32 CDT Andrei Nichols MD [facility] CPT-91294 Level 3 Est. Patient 17:08:28 CDT Andrei Nichols MD [facility] CPT-03963 Level 3 Est. Patient 13:10:13 CDT Jani Marrero MD [facility] CPT-28979 Level 3 Est. Patient 11:27:12 CDT Jani Marrero MD [facility] CPT-23327 Level 3 Est. Patient 13:44:42 CDT Andrei Nichols MD [facility] CPT-58531 Level 3 Est. Patient 12:34:57 CANDY BAR ATTENDANT Andrei Nicohls MD [facility] CPT-78965 Level 3 Est. Patient 15:30:06 CDT Jani Marrero MD [facility] CPT-49352 Level 3 Est. Patient 21:59:00 CDT Corky Mckeon DO [facility] CPT-77919 Level 3 Est. Patient 17:12:49 CDT Andrei Nichols MD [facility] CPT-64428 Level 4 Est. Patient 12:27:45 CANDY BAR ATTENDANT Andrei Nichols MD [facility] CPT-65973 Level 3 Est. Patient 12:15:34 CANDY BAR ATTENDANT Andrei Nichols MD [facility] Procedures Code Procedure Name Date Entry Date Standard Description CPT-OV Office Visit 11:36:40 CDT CPT-37670 Administration 2+ single or combination vaccines inc oral 07:50:30 CDT CPT-86063 Administration single or combination vaccine inc oral 07 :50:30 CDT CPT-57886 Pneumovax 07:50:30 CDT CPT-23813 Influenza split virus > age 3 07:50:30 CDT CPT-OV Office Visit 11:49:10 CANDY BAR ATTENDANT CPT-87263 Nexplanon Removal with Reinsertion 14:02:06 CANDY BAR ATTENDANT CPT-J7307 Nexplanon (Implant) 14:02:06 CANDY BAR ATTENDANT CPT-OV Office Visit 14:02:06 CANDY BAR ATTENDANT CPT-OV Office Visit 11:58:04 CANDY BAR ATTENDANT CPT-56930 Administration single or combination vaccine inc oral 11 :31:07 CDT CPT-83404 Influenza split virus > age 3 11:31:07 CDT CPT-59756 Administration single or combination vaccine inc oral 10 :34:13 CDT CPT-61877 Influenza split virus > age 3 10:34:13 CDT
--- OUTSIDE RECORDS SUMMARY | 2017-01-02 18:37 | XMS REPORT | Clinical Summary ---
Author Author Admin, QIE Organization [facility] [employer] Address Unknown Phone Unavailable Allergies, Adverse Reactions, [...] Sinusitis, frontal, acute 461.1 Resolved Shikha Yokum CERTIFIED REGISTERED NURSE ANESTHETIST Acute frontal sinusitis Pharyngitis 462 Resolved Shikha Yokum CERTIFIED REGISTERED NURSE ANESTHETIST Acute pharyngitis Scabies 133.0 Resolved Shikha Yokum CERTIFIED REGISTERED NURSE ANESTHETIST Scabies Folliculitis 704.8 Resolved Shikha Yokum CERTIFIED REGISTERED NURSE ANESTHETIST Other specified diseases of hair and hair [...] Pool PA ECZEMA ICD-692.9 Inactive Shikhaciro Lockeum CERTIFIED REGISTERED NURSE ANESTHETIST OTITIS MEDIA ICD-382.9 Inactive Ary Pool PA 09/16 PHARYNGITIS ICD-462 Inactive Andrei Nichols MD UNSPECIFIED DISORDER TEETH&SUPPORTING STRUCTURES ICD-525.9 12/29 Inactive Shikha Randolph CERTIFIED REGISTERED NURSE ANESTHETIST PHARYNGITIS-ACUTE ICD-462 Inactive Rosalie Boyd CERTIFIED REGISTERED NURSE ANESTHETIST DIARRHEA ICD-787.91 Inactive Andrei Nichols MD SHOULDER PAIN ICD-719.41 Inactive Shikha Randolph CERTIFIED REGISTERED NURSE ANESTHETIST NAUSEA AND VOMITING ICD-787.01 Inactive Andrei Nichols [...] PhD Dental caries ICD-521.00 Inactive Shikha Yokum CERTIFIED REGISTERED NURSE ANESTHETIST Tooth pain ICD-525.9 Inactive Prisca Lockwood MD PhD Head lice ICD-132.0 Inactive Prisca Lockwood MD PhD Upper respiratory infection ICD-465.9 Inactive Prisca Lockwood MD PhD Sinusitis, frontal, acute ICD-461.1 Inactive Shikha Yokum CERTIFIED REGISTERED NURSE ANESTHETIST Pharyngitis ICD-462 Inactive Shikha Yokum CERTIFIED REGISTERED NURSE ANESTHETIST 2013 Scabies ICD-133.0 Inactive Shikha Yokum CERTIFIED REGISTERED NURSE ANESTHETIST 12/29 Folliculitis ICD-704.8 Inactive Shikha Yokum CERTIFIED REGISTERED NURSE ANESTHETIST Cough ICD-786.2 Inactive Andrei Nichols MD SINUSITIS, ACUTE ICD-461.9 Inactive Jani Marrero MD Medication List Medication Instructions Start Date Stop Date Generic Name NDC Status Provider Patient Instruction ZIAC 2.5-6.25 MG TAB 1 tablet daily for high blood pressure BISOPROLOL-HCTZ [id number] Active Corky Mckeon DO Active MELOXICAM 15 MG TABS 1 daily for knee pain MELOXICAM 11898518412 Active Renetta Ryan APRN Active CYCLOBENZAPRINE HCL 10 MG TABS 1 three times a day as needed for muscle spasm CYCLOBENZAPRINE HCL 48559910261 Active Renetta Ryan APRN Active BUSPIRONE HCL 10 MG ORAL TABS 2 TABS PO BID BUSPIRONE HCL 50216098475 Active Corky Mckeon DO Active AMITRIPTYLINE HCL 75 MG ORAL TABS 1 TAB Q HS AMITRIPTYLINE HCL 03685973422 Active Renetta Ryan APRN Active PROAIR HFA 108 (90 BASE) MCG/ACT AERS 2 puffs four times a day as needed 2015 ALBUTEROL SULFATE 16557845715 No Longer Active Renetta Ryan APRN Active KLONOPIN 1 MG TABS 1 tablet TID CLONAZEPAM 78342218719 No Longer Active Renetta Ryan APRN Active ZITHROMAX 250 MG TAB 2 po today, then 1 po q days 2-5 AZITHROMYCIN 62726073115 No Longer Active Jani Marrero MD Active IBUPROFEN 800 MG TABS 1 tab PO TID IBUPROFEN 66277338049 Active Jani Marrero MD Active WELLBUTRIN SR 100 MG ORAL [id number] 1 TAB PO DAILY BUPROPION HCL 64819292335 Active Jani Marrero MD Active AMITRIPTYLINE HCL 50 MG TAB 1 po q hs for sleep AMITRIPTYLINE HCL 66837177264 No Longer Active Jani Marrero MD Active PROMETHAZINE HCL 25 MG TABS 1 four times a day as needed for vomiting PROMETHAZINE HCL 24434172811 No Longer Active Jani Marrero MD Active AMOXICILLIN 500 MG TABS 2 tabs twice a day for 10 days AMOXICILLIN 14906210143 No Longer Active Jani Marrero MD Active SEROQUEL 200 MG ORAL TABS Take 1 tablet at hs QUETIAPINE FUMARATE 69894965586 No Longer Active Jani Marrero MD Active FETZIMA 40 MG ORAL [id number] LEVOMILNACIPRAN HCL 28348993445 No Longer Active Jani Marrero MD Active PROAIR HFA 108 (90 BASE) MCG/ACT AERS 2 puffs four times a day as needed 2011 ALBUTEROL SULFATE 98448743692 No Longer Active Alondra Denton MD Active IBUPROFEN 600 MG TAB 1 tablet three times a day as needed IBUPROFEN 63316755381 No Longer Active Alondra Denton MD Active LATUDA 20 MG TABS 1 tab at at night with meal LURASIDONE HCL 26714041143 No Longer Active Alondra Denton MD Active CYCLOBENZAPRINE HCL 10 MG TABS 1/2 to 1 tablet every 4 hours CYCLOBENZAPRINE HCL 36207630898 No Longer Active Alondra Denton MD Active CYCLOBENZAPRINE HCL 10 MG TABS 1/2 to 1 tablet by mouth three times daily as needed for muscle spasm/pain CYCLOBENZAPRINE HCL 69252788960 No Longer Active Alondra Denton MD Active SUPRAX 400 MG CAPS Take one tablet twice daily for 7 days CEFIXIME 47401639182 No Longer Active Shikha Yokum CERTIFIED REGISTERED NURSE ANESTHETIST Active TESSALON PERLES 100 MG CAP 1 tablet by mouth 3 times daily 01/20 BENZONATATE 20614517037 No Longer Active Shikha Yokum CERTIFIED REGISTERED NURSE ANESTHETIST Active HYDROXYZINE HCL 10 MG TABS 1 to 2 three times a day as needed for itching HYDROXYZINE HCL 39220220334 No Longer Active Shikha Yokum CERTIFIED REGISTERED NURSE ANESTHETIST Active CYCLOBENZAPRINE HCL 10 MG TABS 1 three times a day as needed for back spasm CYCLOBENZAPRINE HCL 87435601208 No Longer Active Shikha Yokum CERTIFIED REGISTERED NURSE ANESTHETIST Active SEROQUEL 200 MG TABS 1 tablet at bedtime. QUETIAPINE FUMARATE 53052164475 No Longer Active Shikha Yokum CERTIFIED REGISTERED NURSE ANESTHETIST Active BACTRIM DS 800-160 MG TAB 1 tab by mouth twice daily TRIMETHOPRIM-SULFAMETHOXAZOLE 29681704900 No Longer Active Shikha Yokjose SORIANO Active STROMECTOL 3 MG TABS 5 tablets by mouth one time on an empty stomach, may repeat in 2 weeks if needed IVERMECTIN 05130120574 No Longer Active Shikha Yokum CERTIFIED REGISTERED NURSE ANESTHETIST Active PERMETHRIN 5 % CREA apply neck to toes tonight and then rinse off in morning. repeat at 7 days PERMETHRIN 30638262888 No Longer Active Andrei Nichols MD Active MEDROL (NISA) 4 MG TABS 6 tabs on day 1, 5 tabs on day 2, 4 tabs on day 3, 3 tabs on day 4, 2 tabs on day 5, 1 tab on day 6 METHYLPREDNISOLONE 82860233614 No Longer Active Prisca Lockwood MD PhD Active AZITHROMYCIN 250 MG TABS 2 po qd x 1 day, then 1 po qd x 4 days AZITHROMYCIN 14246142988 No Longer Active Prisca Lockwood MD PhD Active CELEXA 20 MG TABS Take 1.5 tablets daily CITALOPRAM HYDROBROMIDE 48890627309 No Longer Active Prisca Lockwood MD PhD Active LOMOTIL 2.5-0.025 MG TAB 1 to 2 four times a day as needed for diarrhea 01/21 DIPHENOXYLATE-ATROPINE 72384208706 No Longer Active Prisca Lockwood MD PhD Active TAMIFLU 75 MG CAPS 1 bid x 5 days OSELTAMIVIR PHOSPHATE 16238775617 No Longer Active Rosalie Boyd APRN Active ZITHROMAX 250 MG TAB 2 po today, then 1 po q days 2-5 AZITHROMYCIN 27802887384 No Longer Active Rosalie Boyd APRN Active STROMECTOL 3 MG TABS 6 pills by mouth x 1; repeat in 10 days 2012 IVERMECTIN 39805198675 No Longer Active Rosalie Boyd APRN Active TYLENOL WITH CODEINE #3 300-30 MG TABS ONE TABLET FOUR TIMES A DAY NEEDED for pain or cough ACETAMINOPHEN-CODEINE 92630479334 No Longer Active Rosalie Boyd APRN Active GUAIFENESIN-CODEINE 100-10 MG/5ML SYRP 1 tsp PO q6h PRN cough GUAIFENESIN-CODEINE 72154263901 No Longer Active Rosalie Boyd APRN Active KEFLEX 500 MG CAP 1 po qid CEPHALEXIN 62565671539 No Longer Active Rosalie Boyd APRN Active GUAIFENESIN-CODEINE 100-10 MG/5ML SYRP 1 tsp PO q6h PRN cough GUAIFENESIN-CODEINE 33852405545 No Longer Active Rosalie Boyd APRN Active PROMETHAZINE HCL 25 MG TABS 1 four times a day as needed for nausea/vomiting PROMETHAZINE HCL 20914061669 No Longer Active Rosalie Boyd APRN Active LAMISIL AT 1 % CREA apply bid to rash TERBINAFINE HCL 14408591166 No Longer Active Andrei Nichols MD Active AMOXICILLIN 400 MG/5ML SUSR 6ml three times a day for 10 days AMOXICILLIN 35216195440 No Longer Active Andrei Nichols MD Active PROMETHAZINE HCL 25 MG TABS take 1 po Q 8 hours prn nausea and vomiting 12/11 PROMETHAZINE HCL 62232197721 No Longer Active Andrei Nichols MD Active BACTROBAN 2 % OINTMENT Apply bid to affected area MUPIROCIN 64721810427 No Longer Active Andrei Nichols MD Active GUAIFENESIN-CODEINE 100-10 MG/5ML SYRP 1 tsp PO q6h PRN cough GUAIFENESIN-CODEINE 09575611240 No Longer Active Andrei Nichols MD Active BACTRIM DS 800-160 MG TABS 1 po BID x 10 days SULFAMETHOXAZOLE-TRIMETHOPRIM 36057918890 No Longer Active Rosalie Boyd APRN Active GUAIFENESIN-CODEINE 100-10 MG/5ML SYRP 1-2 tsp PO q6h PRN cough GUAIFENESIN-CODEINE 74306538980 No Longer Active Giovany URBINA Active PREDNISONE 20 MG TABS 1 tablet by mouth twice daily for 2 days, then 1 daily for 2 days PREDNISONE 77460007210 No Longer Active Giovany URBINA Active HYDROCODONE-ACETAMINOPHEN 5-325 MG TABS 1/2 to 1 po q 4 hours prn pain 11/13 HYDROCODONE-ACETAMINOPHEN 60319932132 No Longer Active Rosalie Boyd APRN Active PENICILLIN V POTASSIUM 500 MG TABS 1 TID PENICILLIN V POTASSIUM 99241912524 No Longer Active Andrei Nichols MD Active SEROQUEL 50 MG TABS 1 tablet at HS QUETIAPINE FUMARATE 43591382794 No Longer Active Andrei Nichols MD Active SEROQUEL 100 MG TABS 1 tablet at HS QUETIAPINE FUMARATE 03457672343 No Longer Active Andrei Nichols MD Active TRIAMCINOLONE ACETONIDE 0.1 % CREA apply three times daily prn rash TRIAMCINOLONE ACETONIDE 85314965524 No Longer Active Andrei Nichols MD Active AMOXICILLIN 500 MG TABS take one tab po tid x 10 days AMOXICILLIN 38882916087 No Longer Active Andrei Nichols MD Active CELEXA 20 MG TABS 1and 1/2 tablets by mouth daily CITALOPRAM HYDROBROMIDE 50847056931 No Longer Active Ary URBINA Active FLEXERIL 10 MG TAB 1/2 to one tablet every 12 hours as needed CYCLOBENZAPRINE HCL 11071721200 No Longer Active Ary URBINA Active CLONAZEPAM 1 MG TABS take at bedtime CLONAZEPAM 06555052668 No Longer Active Ary URBINA Active PERMETHRIN 5 % CREA applyhead to toes tonight and then rinse off in 18 hours. repeat at 7 days if needed. PERMETHRIN 05341637843 No Longer Active Ary URBINA Active AMOXICILLIN 500 MG CAPS 2 po BID x 10 days AMOXICILLIN 93002845307 No Longer Active Andrei Nichols MD Active TYLENOL WITH CODEINE #3 300-30 MG TABS 1 to 2 four times a day as needed for pain ACETAMINOPHEN-CODEINE 28919889402 No Longer Active Reta Acostaklin Active PREDNISONE 20 MG TAB 2 tabs daily for 5 days, then 1 daily for 5 days PREDNISONE 18862664091 No Longer Active Reta Memo Active LOMOTIL 2.5-0.025 MG TAB 1 to 2 four times a day as needed for diarrhea 05/28 DIPHENOXYLATE-ATROPINE 87592052578 No Longer Active Reta Memo Active ALPRAZOLAM 1 MG TABS 1 tab tid ALPRAZOLAM 42699338681 No Longer Active Reta Hampton Active AMOXICILLIN 500 MG CAPS 2 po BID x 10 days AMOXICILLIN 16498128248 No Longer Active Andrei Nichols MD Active AMOXICILLIN 500 MG TABS Take one tab by mouth 3 times daily, morning, afternoon and evening for 7 days. AMOXICILLIN 53296284745 No Longer Active Virginia Alejandra RN Active VICODIN 5-300 MG TABS one tab PO Q 6 hours PRN pain HYDROCODONE-ACETAMINOPHEN 29810965214 No Longer Active Virginia Alejandra RN Active FLAGYL 500 MG TABS four tabs PO one time METRONIDAZOLE 61813760737 No Longer Active Alondra Denton MD Active MELOXICAM 15 MG TABS 1 po q day for pain with food MELOXICAM 29518691015 No Longer Active Alondra Denton MD Active AMOXICILLIN 400 MG/5ML SUSR 5ml po TID x 10 days AMOXICILLIN 45165267324 No Longer Active Jani Marrero MD Active NIX CREME RINSE 1 % LIQD apply as directed tonbethany, repeat at 7 days PERMETHRIN 29351011353 No Longer Active Corky Mckeon DO Active QVAR 40 MCG/ACT AERS one puff three times a day as needed BECLOMETHASONE DIPROPIONATE 50704043646 No Longer Active Andrei Nichols MD Active METHOCARBAMOL 500 MG TABS 1 to 2 qid prn back spasm METHOCARBAMOL 26514679690 No Longer Active Andrei Nichols MD Active VISTARIL 25 MG CAPS 1-2 tablets three times a day as needed HYDROXYZINE PAMOATE 34492638095 No Longer Active Andrei Nichols MD Active SEROQUEL 100 MG TABS 1/2 TABLET at hs QUETIAPINE FUMARATE 23376575516 No Longer Active Aicha Rizzo RN Active BACTRIM DS 800-160 MG TAB 1 tab by mouth twice daily TRIMETHOPRIM-SULFAMETHOXAZOLE 25716639335 No Longer Active Prisca Lockwood MD PhD Active CYCLOBENZAPRINE HCL 10 MG TABS TAKE 1/2 - 1 TAB EVERY 12 HOURS NEEDED 2010 CYCLOBENZAPRINE HCL 22057990202 No Longer Active Andrei Nichols MD Active CYCLOBENZAPRINE HCL 10 MG TABS TAKE 1/2 - 1 TAB EVERY 12 HOURS NEEDED 2010 CYCLOBENZAPRINE HCL 10 MG TABS 136382 CYCLOBENZAPRINE HCL Inactive SEROQUEL 100 MG TABS 1/2 TABLET at hs SEROQUEL 100 MG TABS 519637 QUETIAPINE FUMARATE Inactive VISTARIL 25 MG CAPS 1-2 tablets three times a day as needed VISTARIL 25 MG CAPS 346407 HYDROXYZINE PAMOATE Inactive METHOCARBAMOL 500 MG TABS 1 to 2 qid prn back spasm METHOCARBAMOL 500 MG TABS 411577 METHOCARBAMOL Inactive QVAR 40 MCG/ACT AERS one puff three times a day as needed QVAR 40 MCG/ACT AERS BECLOMETHASONE DIPROPIONATE Inactive NIX CREME RINSE 1 % LIQD apply as directed tonight, repeat at 7 days NIX CREME RINSE 1 % LIQD PERMETHRIN Inactive MELOXICAM 15 MG TABS 1 po q day for pain with food MELOXICAM 15 MG TABS 585881 MELOXICAM Inactive ALPRAZOLAM 1 MG TABS 1 tab tid ALPRAZOLAM 1 MG TABS 188007 ALPRAZOLAM Inactive LOMOTIL 2.5-0.025 MG TAB 1 to 2 four times a day as needed for diarrhea 05/28 LOMOTIL 2.5-0.025 MG TAB 9674279 DIPHENOXYLATE-ATROPINE Inactive PREDNISONE 20 MG TAB 2 tabs daily for 5 days, then 1 daily for 5 days PREDNISONE 20 MG TAB 035771 PREDNISONE Inactive TYLENOL WITH CODEINE #3 300-30 MG TABS 1 to 2 four times a day as needed for pain TYLENOL WITH CODEINE #3 300-30 MG TABS ACETAMINOPHEN-CODEINE Inactive PERMETHRIN 5 % CREA applyhead to toes tonight and then rinse off in 18 hours. repeat at 7 days if needed. PERMETHRIN 5 % CREA 044920 PERMETHRIN Inactive CLONAZEPAM 1 MG TABS take at bedtime CLONAZEPAM 1 MG TABS 243410 CLONAZEPAM Inactive FLEXERIL 10 MG TAB 1/2 to one tablet every 12 hours as needed FLEXERIL 10 MG TAB CYCLOBENZAPRINE HCL Inactive CELEXA 20 MG TABS 1and 1/2 tablets by mouth daily CELEXA 20 MG TABS 133393 CITALOPRAM HYDROBROMIDE Inactive AMOXICILLIN 500 MG TABS take one tab po tid x 10 days AMOXICILLIN 500 MG TABS 651037 AMOXICILLIN Inactive TRIAMCINOLONE ACETONIDE 0.1 % CREA apply three times daily prn rash TRIAMCINOLONE ACETONIDE 0.1 % CREA 6880230 TRIAMCINOLONE ACETONIDE Inactive SEROQUEL 100 MG TABS 1 tablet at HS SEROQUEL 100 MG TABS 594465 QUETIAPINE FUMARATE Inactive SEROQUEL 50 MG TABS 1 tablet at HS SEROQUEL 50 MG TABS 443294 QUETIAPINE FUMARATE Inactive HYDROCODONE-ACETAMINOPHEN 5-325 MG TABS 1/2 to 1 po q 4 hours prn pain 11/13 HYDROCODONE-ACETAMINOPHEN 5-325 MG TABS 650858 HYDROCODONE- ACETAMINOPHEN Inactive PREDNISONE 20 MG TABS 1 tablet by mouth twice daily for 2 days, then 1 daily for 2 days PREDNISONE 20 MG TABS 087527 PREDNISONE Inactive GUAIFENESIN-CODEINE 100-10 MG/5ML SYRP 1-2 tsp PO q6h PRN cough GUAIFENESIN-CODEINE 100-10 MG/5ML SYRP 683361 GUAIFENESIN-CODEINE Inactive GUAIFENESIN-CODEINE 100-10 MG/5ML SYRP 1 tsp PO q6h PRN cough GUAIFENESIN-CODEINE 100-10 MG/5ML SYRP 611885 GUAIFENESIN-CODEINE Inactive BACTROBAN 2 % OINTMENT Apply bid to affected area BACTROBAN 2 % OINTMENT 623598 MUPIROCIN Inactive PROMETHAZINE HCL 25 MG TABS take 1 po Q 8 hours prn nausea and vomiting 12/11 PROMETHAZINE HCL 25 MG TABS 569191 PROMETHAZINE HCL Inactive AMOXICILLIN 400 MG/5ML SUSR 6ml three times a day for 10 days AMOXICILLIN 400 MG/5ML SUSR 325539 AMOXICILLIN Inactive LAMISIL AT 1 % CREA apply bid to rash LAMISIL AT 1 % CREA 652486 TERBINAFINE HCL Inactive PROMETHAZINE HCL 25 MG TABS 1 four times a day as needed for nausea/vomiting PROMETHAZINE HCL 25 MG TABS 329643 PROMETHAZINE HCL Inactive GUAIFENESIN-CODEINE 100-10 MG/5ML SYRP 1 tsp PO q6h PRN cough GUAIFENESIN-CODEINE 100-10 MG/5ML SYRP 042108 GUAIFENESIN-CODEINE Inactive KEFLEX 500 MG CAP 1 po qid KEFLEX 500 MG CAP 464973 CEPHALEXIN Inactive GUAIFENESIN-CODEINE 100-10 MG/5ML SYRP 1 tsp PO q6h PRN cough GUAIFENESIN-CODEINE 100-10 MG/5ML SYRP 309367 GUAIFENESIN-CODEINE Inactive TYLENOL WITH CODEINE #3 300-30 MG TABS ONE TABLET FOUR TIMES A DAY NEEDED for pain or cough TYLENOL WITH CODEINE #3 300-30 MG TABS ACETAMINOPHEN-CODEINE Inactive STROMECTOL 3 MG TABS 6 pills by mouth x 1; repeat in 10 days 2012 STROMECTOL 3 MG TABS 275751 IVERMECTIN Inactive LOMOTIL 2.5-0.025 MG TAB 1 to 2 four times a day as needed for diarrhea 01/21 LOMOTIL 2.5-0.025 MG TAB 8685267 DIPHENOXYLATE-ATROPINE Inactive CELEXA 20 MG TABS Take 1.5 tablets daily CELEXA 20 MG TABS 070130 CITALOPRAM HYDROBROMIDE Inactive PERMETHRIN 5 % CREA apply neck to toes tonight and then rinse off in morning. repeat at 7 days PERMETHRIN 5 % CREA 159769 PERMETHRIN Inactive STROMECTOL 3 MG TABS 5 tablets by mouth one time on an empty stomach, may repeat in 2 weeks if needed STROMECTOL 3 MG TABS 125169 IVERMECTIN Inactive BACTRIM DS 800-160 MG TAB 1 tab by mouth twice daily BACTRIM DS 800-160 MG TAB 507332 TRIMETHOPRIM-SULFAMETHOXAZOLE Inactive SEROQUEL 200 MG TABS 1 tablet at bedtime. SEROQUEL 200 MG TABS 964598 QUETIAPINE FUMARATE Inactive CYCLOBENZAPRINE HCL 10 MG TABS 1 three times a day as needed for back spasm CYCLOBENZAPRINE HCL 10 MG TABS 450304 CYCLOBENZAPRINE HCL Inactive HYDROXYZINE HCL 10 MG TABS 1 to 2 three times a day as needed for itching HYDROXYZINE HCL 10 MG TABS 556710 HYDROXYZINE HCL Inactive TESSALON PERLES 100 MG CAP 1 tablet by mouth 3 times daily 01/20 TESSALON PERLES 100 MG CAP 439003 BENZONATATE Inactive CYCLOBENZAPRINE HCL 10 MG TABS 1/2 to 1 tablet by mouth three times daily as needed for muscle spasm/pain CYCLOBENZAPRINE HCL 10 MG TABS 498143 CYCLOBENZAPRINE HCL Inactive CYCLOBENZAPRINE HCL 10 MG TABS 1/2 to 1 tablet every 4 hours CYCLOBENZAPRINE HCL 10 MG TABS 380888 CYCLOBENZAPRINE HCL Inactive LATUDA 20 MG TABS 1 tab at at night with meal LATUDA 20 MG TABS LURASIDONE HCL Inactive IBUPROFEN 600 MG TAB 1 tablet three times a day as needed IBUPROFEN 600 MG TAB 775869 IBUPROFEN Inactive PROAIR HFA 108 (90 BASE) MCG/ACT AERS 2 puffs four times a day as needed 2011 PROAIR HFA 108 (90 BASE) MCG/ACT AERS ALBUTEROL SULFATE Inactive FETZIMA 40 MG ORAL [id number] FETZIMA 40 MG ORAL [id number] LEVOMILNACIPRAN HCL Inactive SEROQUEL 200 MG ORAL TABS Take 1 tablet at hs SEROQUEL 200 MG ORAL TABS 070828 QUETIAPINE FUMARATE Inactive AMOXICILLIN 500 MG TABS 2 tabs twice a day for 10 days AMOXICILLIN 500 MG TABS 285115 AMOXICILLIN Inactive PROMETHAZINE HCL 25 MG TABS 1 four times a day as needed for vomiting PROMETHAZINE HCL 25 MG TABS 706153 PROMETHAZINE HCL Inactive KLONOPIN 1 MG TABS 1 tablet TID KLONOPIN 1 MG TABS 913824 CLONAZEPAM Inactive PROAIR HFA 108 (90 BASE) MCG/ACT AERS 2 puffs four times a day as needed 2015 PROAIR HFA 108 (90 BASE) MCG/ACT AERS ALBUTEROL SULFATE Inactive BACTRIM DS 800-160 MG TAB 1 tab by mouth twice daily BACTRIM DS 800-160 MG TAB 795052 TRIMETHOPRIM-SULFAMETHOXAZOLE Inactive AMOXICILLIN 400 MG/5ML SUSR 5ml po TID x 10 days AMOXICILLIN 400 MG/5ML SUSR 738288 AMOXICILLIN Inactive FLAGYL 500 MG TABS four tabs PO one time FLAGYL 500 MG TABS 425291 METRONIDAZOLE Inactive AMOXICILLIN 500 MG TABS Take one tab by mouth 3 times daily, morning, afternoon and evening for 7 days. AMOXICILLIN 500 MG TABS 179248 AMOXICILLIN Inactive AMOXICILLIN 500 MG CAPS 2 po BID x 10 days AMOXICILLIN 500 MG CAPS 788336 AMOXICILLIN Inactive AMOXICILLIN 500 MG CAPS 2 po BID x 10 days AMOXICILLIN 500 MG CAPS 601022 AMOXICILLIN Inactive PENICILLIN V POTASSIUM 500 MG TABS 1 TID PENICILLIN V POTASSIUM 500 MG TABS 345192 PENICILLIN V POTASSIUM Inactive BACTRIM DS 800-160 MG TABS 1 po BID x 10 days BACTRIM DS 800-160 MG TABS 731191 SULFAMETHOXAZOLE-TRIMETHOPRIM Inactive ZITHROMAX 250 MG TAB 2 po today, then 1 po q days 2-5 ZITHROMAX 250 MG TAB 9085967 AZITHROMYCIN Inactive TAMIFLU 75 MG CAPS 1 bid x 5 days TAMIFLU 75 MG CAPS 984102 OSELTAMIVIR PHOSPHATE Inactive AZITHROMYCIN 250 MG TABS 2 po qd x 1 day, then 1 po qd x 4 days AZITHROMYCIN 250 MG TABS 1203045 AZITHROMYCIN Inactive MEDROL (NISA) 4 MG TABS 6 tabs on day 1, 5 tabs on day 2, 4 tabs on day 3, 3 tabs on day 4, 2 tabs on day 5, 1 tab on day 6 MEDROL ( NISA) 4 MG TABS 091008 METHYLPREDNISOLONE Inactive SUPRAX 400 MG CAPS Take one tablet twice daily for 7 days SUPRAX 400 MG CAPS CEFIXIME Inactive AMITRIPTYLINE HCL 50 MG TAB 1 po q hs for sleep AMITRIPTYLINE HCL 50 MG TAB 671605 AMITRIPTYLINE HCL Inactive ZITHROMAX 250 MG TAB 2 po today, then 1 po q days 2-5 ZITHROMAX 250 MG TAB 7447539 AZITHROMYCIN Inactive Immunizations Vaccine Administration Date Value Standard Description Seasonal influenza vaccine, injectable, containing preservative, for > 3 years old (Afluria, FluLaval, Fluzone, Fluvirin, Fluarix, Agriflu(>=18 yo)) Fluzone (>3 yrs.) [[id number]] Influenza, seasonal, injectable pneumococcal immunization administered Pneumovax 23 [CVX33] pneumococcal polysaccharide vaccine, 23 valent Seasonal influenza vaccine, injectable, containing preservative, for > 3 years old (Afluria, FluLaval, Fluzone, Fluvirin, Fluarix, Agriflu(>=18 yo)) Fluzone (>3 yrs.) [[id number]] Influenza, seasonal, injectable Seasonal influenza vaccine, injectable, containing preservative, for > 3 years old (Afluria, FluLaval, Fluzone, Fluvirin, Fluarix, Agriflu(>=18 yo)) Fluzone (>3 yrs.) [RMC088] Influenza, seasonal, injectable hepatitis B vaccine #1 [...] Panel - Chemistry sodium, serum 144 mmol/L 994-666 5201/06/08 potassium, serum 4.3 mmol/L 3.5-5.2 chloride, serum 104 mmol/L 98-107 carbon dioxide, venous blood 28.2 mmol/L 21.0-32.0 blood glucose 86 mg/dL 65-110 calcium, serum 9.7 mg/dL 8.5-10.1 urea nitrogen, blood 13 mg/dL 7-18 creatinine, serum 0.66 mg/dL 0.55-1.30 Lab Report: [id number] - Chemistry hemoglobin A1C, blood, as % of total hemoglobin 5.3 % 4.3-6.0 Encounters Code Encounter Date Provider Facility CPT-95344 Level 4 Est. Patient 14:18:58 CDT Corky Mckeon DO [facility] CPT-98728 Level 3 Est. Patient 16:47:47 CDT Renetta Ryan [facility] CPT-66687 Level 3 Est. Patient 11:04:11 REMNANT SORTER Jani Marrero MD [facility] CPT-70821 Level 3 Est. Patient 12:02:27 REMNANT SORTER Andrei Nichols MD [facility] CPT-16192 Level 3 Est. Patient 12:47:17 REMNANT SORTER Andrei Nichols MD [facility] CPT-45341 Level 3 Est. Patient 14:51:20 REMNANT SORTER Shikha Randolph [facility] CPT-16299 Level 3 Est. Patient 10:42:38 CDT Shikha Randolph [facility] CPT-46314 Level 3 Est. Patient 18:20:39 CDT Prisca Lockwood MD PhD [facility]-93237 Level 3 Est. Patient 16:42:47 REMNANT SORTER Rosalie Boyd [facility] CPT-32673 Level 3 Est. Patient 14:34:36 REMNANT SORTER Rosalie Boyd [facility] CPT-28097 Level 4 Est. Patient 10:23:07 REMNANT SORTER Andrei Nichols MD [facility]-32679 Level 3 Est. Patient 16:47:31 REMNANT SORTER Andrei Nichols MD [facility]-51831 Level 3 Est. Patient 11:59:14 CDT Rosalie Boyd [facility]-02482 Level 3 Est. Patient 15:30:34 CDT Giovany URBINA [facility]-05749 Level 3 Est. Patient 11:03:03 CDT Rosalie Boyd [facility]-24509 Level 3 Est. Patient 11:08:07 CDT Rosalie Boyd [facility] CPT-08462 Level 3 Est. Patient 14:07:32 CDT Andrei Nichols MD [facility]-86036 Level 3 Est. Patient 17:08:28 CDT Andrei Nichols MD [facility]-31756 Level 3 Est. Patient 13:10:13 CDT Jani Marrero MD [facility]-98994 Level 3 Est. Patient 11:27:12 CDT Jani Marrero MD [facility]-90093 Level 3 Est. Patient 13:44:42 CDT Andrei Nichols MD [facility]-80002 Level 3 Est. Patient 12:34:57 REMNANT SORTER Andrei Nichols MD [facility]-13957 Level 3 Est. Patient 15:30:06 CDT Jani Marrero MD [facility] CPT-13396 Level 3 Est. Patient 21:59:00 CDT Corky Mckeon DO [facility] CPT-42829 Level 3 Est. Patient 17:12:49 CDT Andrei Nichols MD [facility] CPT-65991 Level 4 Est. Patient 12:27:45 REMNANT SORTER Andrei Nichols MD [facility] CPT-03705 Level 3 Est. Patient 12:15:34 REMNANT SORTER nAdrei Nichols MD [facility] Procedures Code Procedure Name Date Entry Date Standard Description CPT-17748 Knee, left, 3V - XRAY USE ONLY 14:53:02 CDT CPT-OV Office Visit 11:36:40 CDT CPT-63778 Administration 2+ single or combination vaccines inc oral 07:50:30 CDT CPT-30013 Administration single or combination vaccine inc oral 07 :50:30 CDT CPT-30279 Pneumovax 07:50:30 CDT CPT-33865 Influenza split virus > age 3 07:50:30 CDT CPT-OV Office Visit 11:49:10 REMNANT SORTER CPT-31339 Nexplanon Removal with Reinsertion 14:02:06 REMNANT SORTER CPT-J7307 Nexplanon (Implant) 14:02:06 REMNANT SORTER CPT-OV Office Visit 14:02:06 REMNANT SORTER CPT-OV Office Visit 11:58:04 REMNANT SORTER CPT-62331 Administration single or combination vaccine inc oral 11 :31:07 CDT CPT-44884 Influenza split virus > age 3 11:31:07 CDT CPT-55554 Administration single or combination vaccine inc oral 10 :34:13 CDT [facility]-17584 Influenza split virus > age 3 10:34:13 CDT
--- OUTSIDE RECORDS SUMMARY | 2017-01-02 18:37 | XMS REPORT ---
Author Author [facility] Medical Staff Organization [facility] Address [address] [place], [place] [id number] Phone [phone] Care Team Providers Care Seismology Technical Officer Name Role Phone FELIPE MONROE MD PP [phone] Summary purpose TRANSITION OF CARE AUTO GENERATION [...] Code Type Description Date Performed Performing Physician 80917 CPT-4 EMERGENCY DEPT VISIT 09-19-2015 RICKY STOKES 98707 CPT-4 EMERGENCY DEPT VISIT 09-19-2015 RICKY STOKES Functional status Functional Status Finding Observation Time Abdomen Appearance flat :45 Abdomen soft :45 Kapoor no :45 Urination normal :45 Quality sym/unlabored :45 Cough absent :45 Secretions no :45 Airway natural :45 Chest Tube no :45 Oxygen no :05 Temp >100.4 no :05 Temp <96.8 no :05 Chills with rigors no :05 HR > 90bpm yes :05 Respirations > 20 no :05 Systolic <90 no :05 headache stiff neck no :05 Nursing Note DC inst given to pt with Rx for Permethrine cream. Verb understanding of inst and pt amb off unit in stable condition. :05 Vital signs Type Value Date Respiration Rate 20breaths per minute : Pulse 109beats per minute :05 Oxygen Saturation 98% :05 BP Systolic 122mmHg :05 BP Diastolic 76mmHg :05 Temperature 98.6F :05 Social history Type Value Smoking Status CURRENT EVERY DAY SMOKER Treatment Plan No treatment plan text is available for this visit. Hospital discharge instructions Dismissal Condition good Disposition on DC home DC Inst/Educ Give yes Med/Side Effects Rev yes Tetanus Vac 2014
--- OUTSIDE RECORDS SUMMARY | 2017-01-02 18:39 | XMS REPORT | Clinical Summary ---
Author Author Admin, E Organization [facility] Address Unknown Phone Unavailable Allergies, [...] Sinusitis, frontal, acute 461.1 Resolved Shikha Yokum [employer] Acute frontal sinusitis Pharyngitis 462 Resolved Shikha Yokum [employer] Acute pharyngitis Scabies 133.0 Resolved Shikha Yokum [employer] Scabies Folliculitis 704.8 Resolved Shikha Yokum [employer] Other specified diseases of hair and hair [...] Pool PA ECZEMA ICD-692.9 Inactive Shikhaciro Lockeum [employer] OTITIS MEDIA ICD-382.9 Inactive Ary Pool PA 09/16 PHARYNGITIS ICD-462 Inactive Andrei Nichols MD UNSPECIFIED DISORDER TEETH&SUPPORTING STRUCTURES ICD-525.9 12/29 Inactive Shikha Randolph [employer] PHARYNGITIS-ACUTE ICD-462 Inactive Rosalie Boyd [employer] DIARRHEA ICD-787.91 Inactive Andrei Nichols MD SHOULDER PAIN ICD-719.41 Inactive Shikha Randolph [employer] NAUSEA AND VOMITING ICD-787.01 Inactive Andrei Nichols [...] PhD Dental caries ICD-521.00 Inactive Shikha Yokum [employer] Tooth pain ICD-525.9 Inactive Prisca Lockwood MD PhD Head lice ICD-132.0 Inactive Prisca Lockwood MD PhD Upper respiratory infection ICD-465.9 Inactive Prisca Lockwood MD PhD Sinusitis, frontal, acute ICD-461.1 Inactive Shikha Yokum [employer] Pharyngitis ICD-462 Inactive Shikha Yokum [employer] 2013 Scabies ICD-133.0 Inactive Shikha Yokum [employer] 12/29 Folliculitis ICD-704.8 Inactive Shikha Yokum [employer] Cough ICD-786.2 Inactive Andrei Nichols MD SINUSITIS, ACUTE ICD-461.9 Inactive Jani Marrero MD Medication List Medication Instructions Start Date Stop Date Generic Name NDC Status Provider Patient Instruction ZIAC 2.5-6.25 MG TAB 1 tablet daily for high blood pressure BISOPROLOL-HCTZ [id number] Active Corky Mckeon DO Active MELOXICAM 15 MG TABS 1 daily for knee pain MELOXICAM 11684598869 Active Renetta Ryan APRN Active CYCLOBENZAPRINE HCL 10 MG TABS 1 three times a day as needed for muscle spasm CYCLOBENZAPRINE HCL 91904310985 Active Renetta Ryan APRN Active BUSPIRONE HCL 10 MG ORAL TABS 2 TABS PO BID BUSPIRONE HCL 53118892467 Active Corky Mckeon DO Active AMITRIPTYLINE HCL 75 MG ORAL TABS 1 TAB Q HS AMITRIPTYLINE HCL 50821711442 Active Renetta Ryan APRN Active PROAIR HFA 108 (90 BASE) MCG/ACT AERS 2 puffs four times a day as needed 2015 ALBUTEROL SULFATE 07325821710 No Longer Active Renetta Ryan APRN Active KLONOPIN 1 MG TABS 1 tablet TID CLONAZEPAM 65504929526 No Longer Active Renetta Ryan APRN Active ZITHROMAX 250 MG TAB 2 po today, then 1 po q days 2-5 AZITHROMYCIN 57686842516 No Longer Active Jani Marrero MD Active IBUPROFEN 800 MG TABS 1 tab PO TID IBUPROFEN 38677855840 Active Jani Marrero MD Active WELLBUTRIN SR 100 MG ORAL [id number] 1 TAB PO DAILY BUPROPION HCL 65439460666 Active Jani Marrero MD Active AMITRIPTYLINE HCL 50 MG TAB 1 po q hs for sleep AMITRIPTYLINE HCL 00634134783 No Longer Active Jani Marrero MD Active PROMETHAZINE HCL 25 MG TABS 1 four times a day as needed for vomiting PROMETHAZINE HCL 41072780225 No Longer Active Jani Marrero MD Active AMOXICILLIN 500 MG TABS 2 tabs twice a day for 10 days AMOXICILLIN 61321303012 No Longer Active Jani Marrero MD Active SEROQUEL 200 MG ORAL TABS Take 1 tablet at hs QUETIAPINE FUMARATE 02573699832 No Longer Active Jani Marrero MD Active FETZIMA 40 MG ORAL [id number] LEVOMILNACIPRAN HCL 59222373135 No Longer Active Jani Marrero MD Active PROAIR HFA 108 (90 BASE) MCG/ACT AERS 2 puffs four times a day as needed 2011 ALBUTEROL SULFATE 78532634056 No Longer Active Alondra Denton MD Active IBUPROFEN 600 MG TAB 1 tablet three times a day as needed IBUPROFEN 91969360025 No Longer Active Alondra Denton MD Active LATUDA 20 MG TABS 1 tab at at night with meal LURASIDONE HCL 68346176085 No Longer Active Alondra Denton MD Active CYCLOBENZAPRINE HCL 10 MG TABS 1/2 to 1 tablet every 4 hours CYCLOBENZAPRINE HCL 59389871337 No Longer Active Alondra Denton MD Active CYCLOBENZAPRINE HCL 10 MG TABS 1/2 to 1 tablet by mouth three times daily as needed for muscle spasm/pain CYCLOBENZAPRINE HCL 06397079001 No Longer Active Alondra Denton MD Active SUPRAX 400 MG CAPS Take one tablet twice daily for 7 days CEFIXIME 83431876184 No Longer Active Shikha Yokum [employer] Active TESSALON PERLES 100 MG CAP 1 tablet by mouth 3 times daily 01/20 BENZONATATE 66049015483 No Longer Active Shikha Yokum [employer] Active HYDROXYZINE HCL 10 MG TABS 1 to 2 three times a day as needed for itching HYDROXYZINE HCL 55795851050 No Longer Active Shikha Yokum [employer] Active CYCLOBENZAPRINE HCL 10 MG TABS 1 three times a day as needed for back spasm CYCLOBENZAPRINE HCL 24174776532 No Longer Active Shikha Yokum [employer] Active SEROQUEL 200 MG TABS 1 tablet at bedtime. QUETIAPINE FUMARATE 08282207394 No Longer Active Shikha Yokum [employer] Active BACTRIM DS 800-160 MG TAB 1 tab by mouth twice daily TRIMETHOPRIM-SULFAMETHOXAZOLE 64530062320 No Longer Active Shikha Yokjose SORIANO Active STROMECTOL 3 MG TABS 5 tablets by mouth one time on an empty stomach, may repeat in 2 weeks if needed IVERMECTIN 78390242931 No Longer Active Shikha Yokum [employer] Active PERMETHRIN 5 % CREA apply neck to toes tonight and then rinse off in morning. repeat at 7 days PERMETHRIN 01133652218 No Longer Active Andrei Nichols MD Active MEDROL (NISA) 4 MG TABS 6 tabs on day 1, 5 tabs on day 2, 4 tabs on day 3, 3 tabs on day 4, 2 tabs on day 5, 1 tab on day 6 METHYLPREDNISOLONE 37754780059 No Longer Active Prisca Lockwood MD PhD Active AZITHROMYCIN 250 MG TABS 2 po qd x 1 day, then 1 po qd x 4 days AZITHROMYCIN 23217052754 No Longer Active Prisca Lockwood MD PhD Active CELEXA 20 MG TABS Take 1.5 tablets daily CITALOPRAM HYDROBROMIDE 98504959568 No Longer Active Prisca Lockwood MD PhD Active LOMOTIL 2.5-0.025 MG TAB 1 to 2 four times a day as needed for diarrhea 01/21 DIPHENOXYLATE-ATROPINE 18824539209 No Longer Active Prisca Lockwood MD PhD Active TAMIFLU 75 MG CAPS 1 bid x 5 days OSELTAMIVIR PHOSPHATE 09263723443 No Longer Active Rosalie Boyd APRN Active ZITHROMAX 250 MG TAB 2 po today, then 1 po q days 2-5 AZITHROMYCIN 09191504662 No Longer Active Rosalie Boyd APRN Active STROMECTOL 3 MG TABS 6 pills by mouth x 1; repeat in 10 days 2012 IVERMECTIN 21470108197 No Longer Active Rosalie Boyd APRN Active TYLENOL WITH CODEINE #3 300-30 MG TABS ONE TABLET FOUR TIMES A DAY NEEDED for pain or cough ACETAMINOPHEN-CODEINE 20101722457 No Longer Active Rosalie Boyd APRN Active GUAIFENESIN-CODEINE 100-10 MG/5ML SYRP 1 tsp PO q6h PRN cough GUAIFENESIN-CODEINE 70677203593 No Longer Active Rosalie Boyd APRN Active KEFLEX 500 MG CAP 1 po qid CEPHALEXIN 47939045658 No Longer Active Rosalie Boyd APRN Active GUAIFENESIN-CODEINE 100-10 MG/5ML SYRP 1 tsp PO q6h PRN cough GUAIFENESIN-CODEINE 64511377362 No Longer Active Rosalie Boyd APRN Active PROMETHAZINE HCL 25 MG TABS 1 four times a day as needed for nausea/vomiting PROMETHAZINE HCL 68567730468 No Longer Active Rosalie Boyd APRN Active LAMISIL AT 1 % CREA apply bid to rash TERBINAFINE HCL 74726232889 No Longer Active Andrei Nichols MD Active AMOXICILLIN 400 MG/5ML SUSR 6ml three times a day for 10 days AMOXICILLIN 50452017968 No Longer Active Andrei Nichols MD Active PROMETHAZINE HCL 25 MG TABS take 1 po Q 8 hours prn nausea and vomiting 12/11 PROMETHAZINE HCL 53055939051 No Longer Active Andrei Nichols MD Active BACTROBAN 2 % OINTMENT Apply bid to affected area MUPIROCIN 58360274805 No Longer Active Andrei Nichols MD Active GUAIFENESIN-CODEINE 100-10 MG/5ML SYRP 1 tsp PO q6h PRN cough GUAIFENESIN-CODEINE 17820466908 No Longer Active Andrei Nichols MD Active BACTRIM DS 800-160 MG TABS 1 po BID x 10 days SULFAMETHOXAZOLE-TRIMETHOPRIM 83227051570 No Longer Active Rosalie Boyd APRN Active GUAIFENESIN-CODEINE 100-10 MG/5ML SYRP 1-2 tsp PO q6h PRN cough GUAIFENESIN-CODEINE 43378204608 No Longer Active Giovany URBINA Active PREDNISONE 20 MG TABS 1 tablet by mouth twice daily for 2 days, then 1 daily for 2 days PREDNISONE 19313123836 No Longer Active Giovany URBINA Active HYDROCODONE-ACETAMINOPHEN 5-325 MG TABS 1/2 to 1 po q 4 hours prn pain 11/13 HYDROCODONE-ACETAMINOPHEN 94126874238 No Longer Active Rosalie Boyd APRN Active PENICILLIN V POTASSIUM 500 MG TABS 1 TID PENICILLIN V POTASSIUM 40003208935 No Longer Active Andrei Nichols MD Active SEROQUEL 50 MG TABS 1 tablet at HS QUETIAPINE FUMARATE 62006375454 No Longer Active Andrei Nichols MD Active SEROQUEL 100 MG TABS 1 tablet at HS QUETIAPINE FUMARATE 91508151529 No Longer Active Andrei Nichols MD Active TRIAMCINOLONE ACETONIDE 0.1 % CREA apply three times daily prn rash TRIAMCINOLONE ACETONIDE 48103632939 No Longer Active Andrei Nichols MD Active AMOXICILLIN 500 MG TABS take one tab po tid x 10 days AMOXICILLIN 15115967167 No Longer Active Andrei Nichols MD Active CELEXA 20 MG TABS 1and 1/2 tablets by mouth daily CITALOPRAM HYDROBROMIDE 63586508861 No Longer Active Ary URBINA Active FLEXERIL 10 MG TAB 1/2 to one tablet every 12 hours as needed CYCLOBENZAPRINE HCL 99465014276 No Longer Active Ary URBINA Active CLONAZEPAM 1 MG TABS take at bedtime CLONAZEPAM 18101455717 No Longer Active Ary URBINA Active PERMETHRIN 5 % CREA applyhead to toes tonight and then rinse off in 18 hours. repeat at 7 days if needed. PERMETHRIN 17288731323 No Longer Active Ary URBINA Active AMOXICILLIN 500 MG CAPS 2 po BID x 10 days AMOXICILLIN 15651288429 No Longer Active Andrei Nichols MD Active TYLENOL WITH CODEINE #3 300-30 MG TABS 1 to 2 four times a day as needed for pain ACETAMINOPHEN-CODEINE 64847342763 No Longer Active Reta Hampton Active PREDNISONE 20 MG TAB 2 tabs daily for 5 days, then 1 daily for 5 days PREDNISONE 48647811367 No Longer Active Retarylee AcostaMemo Active LOMOTIL 2.5-0.025 MG TAB 1 to 2 four times a day as needed for diarrhea 05/28 DIPHENOXYLATE-ATROPINE 18356537874 No Longer Active Reta Hampton Active ALPRAZOLAM 1 MG TABS 1 tab tid ALPRAZOLAM 80874548718 No Longer Active Reta Hampton Active AMOXICILLIN 500 MG CAPS 2 po BID x 10 days AMOXICILLIN 73043136738 No Longer Active Andrei Nichols MD Active AMOXICILLIN 500 MG TABS Take one tab by mouth 3 times daily, morning, afternoon and evening for 7 days. AMOXICILLIN 87407017579 No Longer Active Virginia Alejandra RN Active VICODIN 5-300 MG TABS one tab PO Q 6 hours PRN pain HYDROCODONE-ACETAMINOPHEN 65735702036 No Longer Active Virginia Alejandra RN Active FLAGYL 500 MG TABS four tabs PO one time METRONIDAZOLE 05359164133 No Longer Active Alondra Denton MD Active MELOXICAM 15 MG TABS 1 po q day for pain with food MELOXICAM 31011054442 No Longer Active Alondra Denton MD Active AMOXICILLIN 400 MG/5ML SUSR 5ml po TID x 10 days AMOXICILLIN 94861431426 No Longer Active Jani Marrero MD Active NIX CREME RINSE 1 % LIQD apply as directed tonight, repeat at 7 days PERMETHRIN 01659484197 No Longer Active Corky Mckeon DO Active QVAR 40 MCG/ACT AERS one puff three times a day as needed BECLOMETHASONE DIPROPIONATE 16313888869 No Longer Active Andrei Nichols MD Active METHOCARBAMOL 500 MG TABS 1 to 2 qid prn back spasm METHOCARBAMOL 31428118571 No Longer Active Andrei Nichols MD Active VISTARIL 25 MG CAPS 1-2 tablets three times a day as needed HYDROXYZINE PAMOATE 99776590270 No Longer Active Andrei Nichols MD Active SEROQUEL 100 MG TABS 1/2 TABLET at hs QUETIAPINE FUMARATE 98876422302 No Longer Active Aicha Rizzo RN Active BACTRIM DS 800-160 MG TAB 1 tab by mouth twice daily TRIMETHOPRIM-SULFAMETHOXAZOLE 64011213265 No Longer Active Prisca Lockwood MD PhD Active CYCLOBENZAPRINE HCL 10 MG TABS TAKE 1/2 - 1 TAB EVERY 12 HOURS NEEDED 2010 CYCLOBENZAPRINE HCL 40289889918 No Longer Active Andrei Nichols MD Active CYCLOBENZAPRINE HCL 10 MG TABS TAKE 1/2 - 1 TAB EVERY 12 HOURS NEEDED 2010 CYCLOBENZAPRINE HCL 10 MG TABS 480687 CYCLOBENZAPRINE HCL Inactive SEROQUEL 100 MG TABS 1/2 TABLET at hs SEROQUEL 100 MG TABS 394753 QUETIAPINE FUMARATE Inactive VISTARIL 25 MG CAPS 1-2 tablets three times a day as needed VISTARIL 25 MG CAPS 158994 HYDROXYZINE PAMOATE Inactive METHOCARBAMOL 500 MG TABS 1 to 2 qid prn back spasm METHOCARBAMOL 500 MG TABS 445546 METHOCARBAMOL Inactive QVAR 40 MCG/ACT AERS one puff three times a day as needed QVAR 40 MCG/ACT AERS BECLOMETHASONE DIPROPIONATE Inactive NIX CREME RINSE 1 % LIQD apply as directed tonight, repeat at 7 days NIX CREME RINSE 1 % LIQD PERMETHRIN Inactive MELOXICAM 15 MG TABS 1 po q day for pain with food MELOXICAM 15 MG TABS 573964 MELOXICAM Inactive ALPRAZOLAM 1 MG TABS 1 tab tid ALPRAZOLAM 1 MG TABS 904429 ALPRAZOLAM Inactive LOMOTIL 2.5-0.025 MG TAB 1 to 2 four times a day as needed for diarrhea 05/28 LOMOTIL 2.5-0.025 MG TAB 8143651 DIPHENOXYLATE-ATROPINE Inactive PREDNISONE 20 MG TAB 2 tabs daily for 5 days, then 1 daily for 5 days PREDNISONE 20 MG TAB 613472 PREDNISONE Inactive TYLENOL WITH CODEINE #3 300-30 MG TABS 1 to 2 four times a day as needed for pain TYLENOL WITH CODEINE #3 300-30 MG TABS ACETAMINOPHEN-CODEINE Inactive PERMETHRIN 5 % CREA applyhead to toes tonight and then rinse off in 18 hours. repeat at 7 days if needed. PERMETHRIN 5 % CREA 167746 PERMETHRIN Inactive CLONAZEPAM 1 MG TABS take at bedtime CLONAZEPAM 1 MG TABS 982773 CLONAZEPAM Inactive FLEXERIL 10 MG TAB 1/2 to one tablet every 12 hours as needed FLEXERIL 10 MG TAB CYCLOBENZAPRINE HCL Inactive CELEXA 20 MG TABS 1and 1/2 tablets by mouth daily CELEXA 20 MG TABS 424003 CITALOPRAM HYDROBROMIDE Inactive AMOXICILLIN 500 MG TABS take one tab po tid x 10 days AMOXICILLIN 500 MG TABS 722706 AMOXICILLIN Inactive TRIAMCINOLONE ACETONIDE 0.1 % CREA apply three times daily prn rash TRIAMCINOLONE ACETONIDE 0.1 % CREA 4443437 TRIAMCINOLONE ACETONIDE Inactive SEROQUEL 100 MG TABS 1 tablet at HS SEROQUEL 100 MG TABS 904057 QUETIAPINE FUMARATE Inactive SEROQUEL 50 MG TABS 1 tablet at HS SEROQUEL 50 MG TABS 285697 QUETIAPINE FUMARATE Inactive HYDROCODONE-ACETAMINOPHEN 5-325 MG TABS 1/2 to 1 po q 4 hours prn pain 11/13 HYDROCODONE-ACETAMINOPHEN 5-325 MG TABS 310951 HYDROCODONE- ACETAMINOPHEN Inactive PREDNISONE 20 MG TABS 1 tablet by mouth twice daily for 2 days, then 1 daily for 2 days PREDNISONE 20 MG TABS 956509 PREDNISONE Inactive GUAIFENESIN-CODEINE 100-10 MG/5ML SYRP 1-2 tsp PO q6h PRN cough GUAIFENESIN-CODEINE 100-10 MG/5ML SYRP 654953 GUAIFENESIN-CODEINE Inactive GUAIFENESIN-CODEINE 100-10 MG/5ML SYRP 1 tsp PO q6h PRN cough GUAIFENESIN-CODEINE 100-10 MG/5ML SYRP 169778 GUAIFENESIN-CODEINE Inactive BACTROBAN 2 % OINTMENT Apply bid to affected area BACTROBAN 2 % OINTMENT 476133 MUPIROCIN Inactive PROMETHAZINE HCL 25 MG TABS take 1 po Q 8 hours prn nausea and vomiting 12/11 PROMETHAZINE HCL 25 MG TABS 790511 PROMETHAZINE HCL Inactive AMOXICILLIN 400 MG/5ML SUSR 6ml three times a day for 10 days AMOXICILLIN 400 MG/5ML SUSR 007691 AMOXICILLIN Inactive LAMISIL AT 1 % CREA apply bid to rash LAMISIL AT 1 % CREA 333960 TERBINAFINE HCL Inactive PROMETHAZINE HCL 25 MG TABS 1 four times a day as needed for nausea/vomiting PROMETHAZINE HCL 25 MG TABS 388711 PROMETHAZINE HCL Inactive GUAIFENESIN-CODEINE 100-10 MG/5ML SYRP 1 tsp PO q6h PRN cough GUAIFENESIN-CODEINE 100-10 MG/5ML SYRP 171114 GUAIFENESIN-CODEINE Inactive KEFLEX 500 MG CAP 1 po qid KEFLEX 500 MG CAP 425139 CEPHALEXIN Inactive GUAIFENESIN-CODEINE 100-10 MG/5ML SYRP 1 tsp PO q6h PRN cough GUAIFENESIN-CODEINE 100-10 MG/5ML SYRP 944839 GUAIFENESIN-CODEINE Inactive TYLENOL WITH CODEINE #3 300-30 MG TABS ONE TABLET FOUR TIMES A DAY NEEDED for pain or cough TYLENOL WITH CODEINE #3 300-30 MG TABS ACETAMINOPHEN-CODEINE Inactive STROMECTOL 3 MG TABS 6 pills by mouth x 1; repeat in 10 days 2012 STROMECTOL 3 MG TABS 596043 IVERMECTIN Inactive LOMOTIL 2.5-0.025 MG TAB 1 to 2 four times a day as needed for diarrhea 01/21 LOMOTIL 2.5-0.025 MG TAB 6238458 DIPHENOXYLATE-ATROPINE Inactive CELEXA 20 MG TABS Take 1.5 tablets daily CELEXA 20 MG TABS 573822 CITALOPRAM HYDROBROMIDE Inactive PERMETHRIN 5 % CREA apply neck to toes tonight and then rinse off in morning. repeat at 7 days PERMETHRIN 5 % CREA 760653 PERMETHRIN Inactive STROMECTOL 3 MG TABS 5 tablets by mouth one time on an empty stomach, may repeat in 2 weeks if needed STROMECTOL 3 MG TABS 832260 IVERMECTIN Inactive BACTRIM DS 800-160 MG TAB 1 tab by mouth twice daily BACTRIM DS 800-160 MG TAB 540790 TRIMETHOPRIM-SULFAMETHOXAZOLE Inactive SEROQUEL 200 MG TABS 1 tablet at bedtime. SEROQUEL 200 MG TABS 152773 QUETIAPINE FUMARATE Inactive CYCLOBENZAPRINE HCL 10 MG TABS 1 three times a day as needed for back spasm CYCLOBENZAPRINE HCL 10 MG TABS 951223 CYCLOBENZAPRINE HCL Inactive HYDROXYZINE HCL 10 MG TABS 1 to 2 three times a day as needed for itching HYDROXYZINE HCL 10 MG TABS 786198 HYDROXYZINE HCL Inactive TESSALON PERLES 100 MG CAP 1 tablet by mouth 3 times daily 01/20 TESSALON PERLES 100 MG CAP 736855 BENZONATATE Inactive CYCLOBENZAPRINE HCL 10 MG TABS 1/2 to 1 tablet by mouth three times daily as needed for muscle spasm/pain CYCLOBENZAPRINE HCL 10 MG TABS 549466 CYCLOBENZAPRINE HCL Inactive CYCLOBENZAPRINE HCL 10 MG TABS 1/2 to 1 tablet every 4 hours CYCLOBENZAPRINE HCL 10 MG TABS 188654 CYCLOBENZAPRINE HCL Inactive LATUDA 20 MG TABS 1 tab at at night with meal LATUDA 20 MG TABS LURASIDONE HCL Inactive IBUPROFEN 600 MG TAB 1 tablet three times a day as needed IBUPROFEN 600 MG TAB 209146 IBUPROFEN Inactive PROAIR HFA 108 (90 BASE) MCG/ACT AERS 2 puffs four times a day as needed 2011 PROAIR HFA 108 (90 BASE) MCG/ACT AERS ALBUTEROL SULFATE Inactive FETZIMA 40 MG ORAL [id number] FETZIMA 40 MG ORAL [id number] LEVOMILNACIPRAN HCL Inactive SEROQUEL 200 MG ORAL TABS Take 1 tablet at hs SEROQUEL 200 MG ORAL TABS 034343 QUETIAPINE FUMARATE Inactive AMOXICILLIN 500 MG TABS 2 tabs twice a day for 10 days AMOXICILLIN 500 MG TABS 730788 AMOXICILLIN Inactive PROMETHAZINE HCL 25 MG TABS 1 four times a day as needed for vomiting PROMETHAZINE HCL 25 MG TABS 085906 PROMETHAZINE HCL Inactive KLONOPIN 1 MG TABS 1 tablet TID KLONOPIN 1 MG TABS 575052 CLONAZEPAM Inactive PROAIR HFA 108 (90 BASE) MCG/ACT AERS 2 puffs four times a day as needed 2015 PROAIR HFA 108 (90 BASE) MCG/ACT AERS ALBUTEROL SULFATE Inactive BACTRIM DS 800-160 MG TAB 1 tab by mouth twice daily BACTRIM DS 800-160 MG TAB 478251 TRIMETHOPRIM-SULFAMETHOXAZOLE Inactive AMOXICILLIN 400 MG/5ML SUSR 5ml po TID x 10 days AMOXICILLIN 400 MG/5ML SUSR 728989 AMOXICILLIN Inactive FLAGYL 500 MG TABS four tabs PO one time FLAGYL 500 MG TABS 393942 METRONIDAZOLE Inactive AMOXICILLIN 500 MG TABS Take one tab by mouth 3 times daily, morning, afternoon and evening for 7 days. AMOXICILLIN 500 MG TABS 749980 AMOXICILLIN Inactive AMOXICILLIN 500 MG CAPS 2 po BID x 10 days AMOXICILLIN 500 MG CAPS 311779 AMOXICILLIN Inactive AMOXICILLIN 500 MG CAPS 2 po BID x 10 days AMOXICILLIN 500 MG CAPS 257275 AMOXICILLIN Inactive PENICILLIN V POTASSIUM 500 MG TABS 1 TID PENICILLIN V POTASSIUM 500 MG TABS 509760 PENICILLIN V POTASSIUM Inactive BACTRIM DS 800-160 MG TABS 1 po BID x 10 days BACTRIM DS 800-160 MG TABS 518642 SULFAMETHOXAZOLE-TRIMETHOPRIM Inactive ZITHROMAX 250 MG TAB 2 po today, then 1 po q days 2-5 ZITHROMAX 250 MG TAB 9196803 AZITHROMYCIN Inactive TAMIFLU 75 MG CAPS 1 bid x 5 days TAMIFLU 75 MG CAPS 504239 OSELTAMIVIR PHOSPHATE Inactive AZITHROMYCIN 250 MG TABS 2 po qd x 1 day, then 1 po qd x 4 days AZITHROMYCIN 250 MG TABS 0426639 AZITHROMYCIN Inactive MEDROL (NISA) 4 MG TABS 6 tabs on day 1, 5 tabs on day 2, 4 tabs on day 3, 3 tabs on day 4, 2 tabs on day 5, 1 tab on day 6 MEDROL ( NISA) 4 MG TABS 482236 METHYLPREDNISOLONE Inactive SUPRAX 400 MG CAPS Take one tablet twice daily for 7 days SUPRAX 400 MG CAPS CEFIXIME Inactive AMITRIPTYLINE HCL 50 MG TAB 1 po q hs for sleep AMITRIPTYLINE HCL 50 MG TAB 112135 AMITRIPTYLINE HCL Inactive ZITHROMAX 250 MG TAB 2 po today, then 1 po q days 2-5 ZITHROMAX 250 MG TAB 7675823 AZITHROMYCIN Inactive Immunizations Vaccine Administration Date Value Standard Description Seasonal influenza vaccine, injectable, containing preservative, for > 3 years old (Afluria, FluLaval, Fluzone, Fluvirin, Fluarix, Agriflu(>=18 yo)) Fluzone (>3 yrs.) [[id number]] Influenza, seasonal, injectable pneumococcal immunization administered Pneumovax 23 [CVX33] pneumococcal polysaccharide vaccine, 23 valent Seasonal influenza vaccine, injectable, containing preservative, for > 3 years old (Afluria, FluLaval, Fluzone, Fluvirin, Fluarix, Agriflu(>=18 yo)) Fluzone (>3 yrs.) [SJX031] Influenza, seasonal, injectable Seasonal influenza vaccine, injectable, containing preservative, for > 3 years old (Afluria, FluLaval, Fluzone, Fluvirin, Fluarix, Agriflu(>=18 yo)) Fluzone (>3 yrs.) [HEC868] Influenza, seasonal, injectable hepatitis B vaccine #1 [...] Panel - Chemistry sodium, serum 144 mmol/L 464-708 4168/06/08 potassium, serum 4.3 mmol/L 3.5-5.2 chloride, serum 104 mmol/L 98-107 carbon dioxide, venous blood 28.2 mmol/L 21.0-32.0 blood glucose 86 mg/dL 65-110 calcium, serum 9.7 mg/dL 8.5-10.1 urea nitrogen, blood 13 mg/dL 7-18 creatinine, serum 0.66 mg/dL 0.55-1.30 Lab Report: HGBA1C - Chemistry hemoglobin A1C, blood, as % of total hemoglobin 5.3 % 4.3-6.0 Encounters Code Encounter Date Provider Facility CPT-25691 Level 4 Est. Patient 14:18:58 CDT Corky Mckeon DO [facility] CPT-64816 Level 3 Est. Patient 16:47:47 CDT Renetta Ryan [facility] CPT-95026 Level 3 Est. Patient 11:04:11 CHIEF PROGRAM OFFICER Jani Marrero MD [facility] CPT-41150 Level 3 Est. Patient 12:02:27 CHIEF PROGRAM OFFICER Andrei Nichols MD [facility] CPT-29371 Level 3 Est. Patient 12:47:17 CHIEF PROGRAM OFFICER Andrei Nichols MD [facility] CPT-86238 Level 3 Est. Patient 14:51:20 CHIEF PROGRAM OFFICER Shikha Randolph [facility] CPT-39289 Level 3 Est. Patient 10:42:38 CDT Shikha Randolph [facility] CPT-24783 Level 3 Est. Patient 18:20:39 CDT Prisca Lockwood MD PhD [facility] CPT-08364 Level 3 Est. Patient 16:42:47 CHIEF PROGRAM OFFICER Rosalie Boyd [facility] CPT-71560 Level 3 Est. Patient 14:34:36 CHIEF PROGRAM OFFICER Rosalie Boyd [facility] CPT-11628 Level 4 Est. Patient 10:23:07 CHIEF PROGRAM OFFICER Andrei Nichols MD [facility]-18893 Level 3 Est. Patient 16:47:31 CHIEF PROGRAM OFFICER Andrei Nichols MD [facility]-27823 Level 3 Est. Patient 11:59:14 CDT Rosalie Boyd [facility]-02878 Level 3 Est. Patient 15:30:34 CDT Giovany URBINA [facility]-48877 Level 3 Est. Patient 11:03:03 CDT Rosalie Boyd [facility]-73392 Level 3 Est. Patient 11:08:07 CDT Rosalie Boyd [facility] CPT-31636 Level 3 Est. Patient 14:07:32 CDT Andrei Nichols MD [facility]-89526 Level 3 Est. Patient 17:08:28 CDT Andrei Nichols MD [facility]-94149 Level 3 Est. Patient 13:10:13 CDT Jani Marrero MD [facility]-51980 Level 3 Est. Patient 11:27:12 CDT Jani Marrero MD [facility]-73204 Level 3 Est. Patient 13:44:42 CDT Andrei Nichols MD [facility]-68653 Level 3 Est. Patient 12:34:57 CHIEF PROGRAM OFFICER Andrei Nichols MD [facility]-77099 Level 3 Est. Patient 15:30:06 CDT Jani Marrero MD [facility] CPT-46580 Level 3 Est. Patient 21:59:00 CDT Corky Juliann Mike HARDIN [facility] CPT-84048 Level 3 Est. Patient 17:12:49 CDT Andrei Nichols MD [facility] CPT-70564 Level 4 Est. Patient 12:27:45 CHIEF PROGRAM OFFICER Andrei Nichols MD [facility] CPT-86663 Level 3 Est. Patient 12:15:34 CHIEF PROGRAM OFFICER Andrei Nichols MD [facility] Procedures Code Procedure Name Date Entry Date Standard Description CPT-33079 Knee, left, 3V - XRAY USE ONLY 14:53:02 CDT CPT-OV Office Visit 11:36:40 CDT CPT-47166 Administration 2+ single or combination vaccines inc oral 07:50:30 CDT CPT-40482 Administration single or combination vaccine inc oral 07 :50:30 CDT CPT-41941 Pneumovax 07:50:30 CDT CPT-03729 Influenza split virus > age 3 07:50:30 CDT CPT-OV Office Visit 11:49:10 CHIEF PROGRAM OFFICER CPT-23257 Nexplanon Removal with Reinsertion 14:02:06 CHIEF PROGRAM OFFICER CPT-J7307 Nexplanon (Implant) 14:02:06 CHIEF PROGRAM OFFICER CPT-OV Office Visit 14:02:06 CHIEF PROGRAM OFFICER CPT-OV Office Visit 11:58:04 CHIEF PROGRAM OFFICER CPT-22253 Administration single or combination vaccine inc oral 11 :31:07 CDT CPT-07371 Influenza split virus > age 3 11:31:07 CDT CPT-75407 Administration single or combination vaccine inc oral 10 :34:13 CDT CPT-33104 Influenza split virus > age 3 10:34:13 CDT
--- OUTSIDE RECORDS SUMMARY | 2017-01-02 18:39 | XMS REPORT ---
Author Author CRISTINO RUSH Organization [employer] Address Unknown Phone Unavailable Care Team Providers Care Principal Solutions Architect Name Role Phone CRISTINO RUSH CP Unavailable [...] Start Date End Date Status Dosage Ibuprofen [facility] [id number] [id number] MG Orally Three times a day 1 tablet Results No Known Results Summary Purpose [employer] Submission
--- OUTSIDE RECORDS SUMMARY | 2017-01-02 18:41 | XMS REPORT | Clinical Summary ---
Author Author Admin, E Organization [facility] [employer] Address Unknown Phone Unavailable Allergies, Adverse Reactions, [...] Sinusitis, frontal, acute 461.1 Resolved Shikha Yokum [employer] Acute frontal sinusitis Pharyngitis 462 Resolved Shikha Yokum BO Acute pharyngitis Scabies 133.0 Resolved Shikha Yokum [employer] Scabies Folliculitis 704.8 Resolved Shikha Yokum [employer] Other specified diseases of hair and hair [...] Randolph APRN OTITIS MEDIA ICD-382.9 Inactive Ary URBINA 09/16 PHARYNGITIS ICD-462 Inactive Andrei Nichols MD UNSPECIFIED DISORDER TEETH&SUPPORTING STRUCTURES ICD-525.9 12/29 Inactive Shikha Randolph [employer] PHARYNGITIS-ACUTE ICD-462 Inactive Rosalie Boyd [employer] DIARRHEA ICD-787.91 Inactive Andrei Nichols MD SHOULDER PAIN ICD-719.41 Inactive Shikha Randolph [employer] NAUSEA AND VOMITING ICD-787.01 Inactive Andrei Nichols [...] PhD Dental caries ICD-521.00 Inactive Shikha Randolph [employer] Tooth pain ICD-525.9 Inactive Prisca Lockwood MD PhD Head lice ICD-132.0 Inactive Prisca Lockwood MD PhD Upper respiratory infection ICD-465.9 Inactive Prisca Lockwood MD PhD Sinusitis, frontal, acute ICD-461.1 Inactive Shikha Yokum [employer] Pharyngitis ICD-462 Inactive Shikha Yokum [employer] 2013 Scabies ICD-133.0 Inactive Shikha Yokum [employer] 12/29 Folliculitis ICD-704.8 Inactive Shikha Yokum [employer] Cough ICD-786.2 Inactive Andrei Nichols MD Medication List Medication Instructions Start Date Stop Date Generic Name NDC Status Provider Patient Instruction ZITHROMAX 250 MG TAB 2 po today, then 1 po q days 2-5 AZITHROMYCIN 70950035807 Active Jani Marrero MD Active IBUPROFEN 800 MG TABS 1 tab PO TID IBUPROFEN 74878258410 Active Jani Marrero MD Active WELLBUTRIN SR 100 MG ORAL [id number] 1 TAB PO DAILY BUPROPION HCL 41809581648 Active Jani Marrero MD Active AMITRIPTYLINE HCL 50 MG TAB 1 po q hs for sleep AMITRIPTYLINE HCL 64933740082 Active Jani Marrero MD Active PROMETHAZINE HCL 25 MG TABS 1 four times a day as needed for vomiting PROMETHAZINE HCL 65862372998 No Longer Active Jani Marrero MD Active AMOXICILLIN 500 MG TABS 2 tabs twice a day for 10 days AMOXICILLIN 83295707912 No Longer Active Jani Marrero MD Active SEROQUEL 200 MG ORAL TABS Take 1 tablet at hs QUETIAPINE FUMARATE 06741401216 No Longer Active Jani Marrero MD Active FETZIMA 40 MG ORAL [id number] LEVOMILNACIPRAN HCL 88909560178 No Longer Active Jani Marrero MD Active PROAIR HFA 108 (90 BASE) MCG/ACT AERS 2 puffs four times a day as needed 2015 ALBUTEROL SULFATE 63391525569 Active Andrei Nichols MD Active KLONOPIN 1 MG TABS 1 tablet TID CLONAZEPAM 44394135072 Active Andrei Nichols MD Active PROAIR HFA 108 (90 BASE) MCG/ACT AERS 2 puffs four times a day as needed 2011 ALBUTEROL SULFATE 14648330680 No Longer Active Alondra Denton MD Active IBUPROFEN 600 MG TAB 1 tablet three times a day as needed IBUPROFEN 73130991325 No Longer Active Alondra Denton MD Active LATUDA 20 MG TABS 1 tab at at night with meal LURASIDONE HCL 72663438332 No Longer Active Alondra Denton MD Active CYCLOBENZAPRINE HCL 10 MG TABS 1/2 to 1 tablet every 4 hours CYCLOBENZAPRINE HCL 26664910269 No Longer Active Alondra Denton MD Active CYCLOBENZAPRINE HCL 10 MG TABS 1/2 to 1 tablet by mouth three times daily as needed for muscle spasm/pain CYCLOBENZAPRINE HCL 29979801977 No Longer Active Alondra Denton MD Active SUPRAX 400 MG CAPS Take one tablet twice daily for 7 days CEFIXIME 06610815089 No Longer Active Shikha Yokum [employer] Active TESSALON PERLES 100 MG CAP 1 tablet by mouth 3 times daily 01/20 BENZONATATE 49202188878 No Longer Active Shikha Yokum [employer] Active HYDROXYZINE HCL 10 MG TABS 1 to 2 three times a day as needed for itching HYDROXYZINE HCL 09482109642 No Longer Active Shikha Yokum [employer] Active CYCLOBENZAPRINE HCL 10 MG TABS 1 three times a day as needed for back spasm CYCLOBENZAPRINE HCL 67411820126 No Longer Active Shikha Yokum [employer] Active SEROQUEL 200 MG TABS 1 tablet at bedtime. QUETIAPINE FUMARATE 07570932447 No Longer Active Shikha Yokum [employer] Active BACTRIM DS 800-160 MG TAB 1 tab by mouth twice daily TRIMETHOPRIM-SULFAMETHOXAZOLE 70547285400 No Longer Active Shikha Yokum [employer] Active STROMECTOL 3 MG TABS 5 tablets by mouth one time on an empty stomach, may repeat in 2 weeks if needed IVERMECTIN 49459012640 No Longer Active Shikha Yokum [employer] Active PERMETHRIN 5 % CREA apply neck to toes tonight and then rinse off in morning. repeat at 7 days PERMETHRIN 44065112650 No Longer Active Andrei Nichols MD Active MEDROL (NISA) 4 MG TABS 6 tabs on day 1, 5 tabs on day 2, 4 tabs on day 3, 3 tabs on day 4, 2 tabs on day 5, 1 tab on day 6 METHYLPREDNISOLONE 80878701648 No Longer Active Prisca Lockwood MD PhD Active AZITHROMYCIN 250 MG TABS 2 po qd x 1 day, then 1 po qd x 4 days AZITHROMYCIN 82526648286 No Longer Active Prisca Lockwood MD PhD Active CELEXA 20 MG TABS Take 1.5 tablets daily CITALOPRAM HYDROBROMIDE 48748160429 No Longer Active Prisca Lockwood MD PhD Active LOMOTIL 2.5-0.025 MG TAB 1 to 2 four times a day as needed for diarrhea 01/21 DIPHENOXYLATE-ATROPINE 96133146603 No Longer Active Prisca Lockwood MD PhD Active TAMIFLU 75 MG CAPS 1 bid x 5 days OSELTAMIVIR PHOSPHATE 48520288873 No Longer Active Rosalie Boyd APRN Active ZITHROMAX 250 MG TAB 2 po today, then 1 po q days 2-5 AZITHROMYCIN 56975721225 No Longer Active Rosalie Boyd APRN Active STROMECTOL 3 MG TABS 6 pills by mouth x 1; repeat in 10 days 2012 IVERMECTIN 40824650580 No Longer Active Rosalie Boyd APRN Active TYLENOL WITH CODEINE #3 300-30 MG TABS ONE TABLET FOUR TIMES A DAY NEEDED for pain or cough ACETAMINOPHEN-CODEINE 64093934624 No Longer Active Rosalie Boyd APRN Active GUAIFENESIN-CODEINE 100-10 MG/5ML SYRP 1 tsp PO q6h PRN cough GUAIFENESIN-CODEINE 88267667376 No Longer Active Rosalie Boyd APRN Active KEFLEX 500 MG CAP 1 po qid CEPHALEXIN 24147303438 No Longer Active Rosalie Boyd APRN Active GUAIFENESIN-CODEINE 100-10 MG/5ML SYRP 1 tsp PO q6h PRN cough GUAIFENESIN-CODEINE 68104419060 No Longer Active Rosalie Boyd APRN Active PROMETHAZINE HCL 25 MG TABS 1 four times a day as needed for nausea/vomiting PROMETHAZINE HCL 29853701265 No Longer Active Rosalie Boyd APRN Active LAMISIL AT 1 % CREA apply bid to rash TERBINAFINE HCL 78571015397 No Longer Active Andrei Nichols MD Active AMOXICILLIN 400 MG/5ML SUSR 6ml three times a day for 10 days AMOXICILLIN 74241235094 No Longer Active Andrei Nichols MD Active PROMETHAZINE HCL 25 MG TABS take 1 po Q 8 hours prn nausea and vomiting 12/11 PROMETHAZINE HCL 47593863635 No Longer Active Andrei Nichols MD Active BACTROBAN 2 % OINTMENT Apply bid to affected area MUPIROCIN 53854091808 No Longer Active Andrei Nichols MD Active GUAIFENESIN-CODEINE 100-10 MG/5ML SYRP 1 tsp PO q6h PRN cough GUAIFENESIN-CODEINE 98696849768 No Longer Active Andrei Nichols MD Active BACTRIM DS 800-160 MG TABS 1 po BID x 10 days SULFAMETHOXAZOLE-TRIMETHOPRIM 15173806957 No Longer Active Rosalie Boyd APRN Active GUAIFENESIN-CODEINE 100-10 MG/5ML SYRP 1-2 tsp PO q6h PRN cough GUAIFENESIN-CODEINE 57025941233 No Longer Active Giovany URBINA Active PREDNISONE 20 MG TABS 1 tablet by mouth twice daily for 2 days, then 1 daily for 2 days PREDNISONE 14408088309 No Longer Active Giovany URBINA Active HYDROCODONE-ACETAMINOPHEN 5-325 MG TABS 1/2 to 1 po q 4 hours prn pain 11/13 HYDROCODONE-ACETAMINOPHEN 71739396156 No Longer Active Rosalie Boyd APRN Active PENICILLIN V POTASSIUM 500 MG TABS 1 TID PENICILLIN V POTASSIUM 59590103229 No Longer Active Andrei Nichols MD Active SEROQUEL 50 MG TABS 1 tablet at HS QUETIAPINE FUMARATE 41008638333 No Longer Active Andrei Nichols MD Active SEROQUEL 100 MG TABS 1 tablet at HS QUETIAPINE FUMARATE 58553417697 No Longer Active Andrei Nichols MD Active TRIAMCINOLONE ACETONIDE 0.1 % CREA apply three times daily prn rash TRIAMCINOLONE ACETONIDE 81833407722 No Longer Active Andrei Nichols MD Active AMOXICILLIN 500 MG TABS take one tab po tid x 10 days AMOXICILLIN 26661991555 No Longer Active Andrei Nichols MD Active CELEXA 20 MG TABS 1and 1/2 tablets by mouth daily CITALOPRAM HYDROBROMIDE 54539925990 No Longer Active Ary Pool PA Active FLEXERIL 10 MG TAB 1/2 to one tablet every 12 hours as needed CYCLOBENZAPRINE HCL 03441761959 No Longer Active Ary Pool PA Active CLONAZEPAM 1 MG TABS take at bedtime CLONAZEPAM 08847642570 No Longer Active Ary Pool PA Active PERMETHRIN 5 % CREA applyhead to toes tonight and then rinse off in 18 hours. repeat at 7 days if needed. PERMETHRIN 15992898549 No Longer Active Ary Pool PA Active AMOXICILLIN 500 MG CAPS 2 po BID x 10 days AMOXICILLIN 05916702913 No Longer Active Andrei Nichols MD Active TYLENOL WITH CODEINE #3 300-30 MG TABS 1 to 2 four times a day as needed for pain ACETAMINOPHEN-CODEINE 44246261097 No Longer Active Reta Memo Active PREDNISONE 20 MG TAB 2 tabs daily for 5 days, then 1 daily for 5 days PREDNISONE 02432814736 No Longer Active Reta Memo Active LOMOTIL 2.5-0.025 MG TAB 1 to 2 four times a day as needed for diarrhea 05/28 DIPHENOXYLATE-ATROPINE 10441107567 No Longer Active Reta Memo Active ALPRAZOLAM 1 MG TABS 1 tab tid ALPRAZOLAM 17665094095 No Longer Active Reta Memo Active AMOXICILLIN 500 MG CAPS 2 po BID x 10 days AMOXICILLIN 35589300506 No Longer Active Andrei Nichols MD Active AMOXICILLIN 500 MG TABS Take one tab by mouth 3 times daily, morning, afternoon and evening for 7 days. AMOXICILLIN 05303472637 No Longer Active Virginia Alejandra RN Active VICODIN 5-300 MG TABS one tab PO Q 6 hours PRN pain HYDROCODONE-ACETAMINOPHEN 01900777177 No Longer Active Virginia Alejandra RN Active FLAGYL 500 MG TABS four tabs PO one time METRONIDAZOLE 22653484636 No Longer Active Alondra Denton MD Active MELOXICAM 15 MG TABS 1 po q day for pain with food MELOXICAM 47914010755 No Longer Active Alondra Denton MD Active AMOXICILLIN 400 MG/5ML SUSR 5ml po TID x 10 days AMOXICILLIN 11383189332 No Longer Active Jani Marrero MD Active NIX CREME RINSE 1 % LIQD apply as directed carlotta, repeat at 7 days PERMETHRIN 55806463782 No Longer Active Corky Mckeon DO Active QVAR 40 MCG/ACT AERS one puff three times a day as needed BECLOMETHASONE DIPROPIONATE 79787032061 No Longer Active Andrei Nichols MD Active METHOCARBAMOL 500 MG TABS 1 to 2 qid prn back spasm METHOCARBAMOL 96382656514 No Longer Active Andrei Nichols MD Active VISTARIL 25 MG CAPS 1-2 tablets three times a day as needed HYDROXYZINE PAMOATE 48872377665 No Longer Active Andrei Nichols MD Active SEROQUEL 100 MG TABS 1/2 TABLET at hs QUETIAPINE FUMARATE 45952187719 No Longer Active Aicha Rizzo RN Active BACTRIM DS 800-160 MG TAB 1 tab by mouth twice daily TRIMETHOPRIM-SULFAMETHOXAZOLE 48222786770 No Longer Active Prisca Lockwood MD PhD Active CYCLOBENZAPRINE HCL 10 MG TABS TAKE 1/2 - 1 TAB EVERY 12 HOURS NEEDED 2010 CYCLOBENZAPRINE HCL 44106359087 No Longer Active Andrei Nichols MD Active CYCLOBENZAPRINE HCL 10 MG TABS TAKE 1/2 - 1 TAB EVERY 12 HOURS NEEDED 2010 CYCLOBENZAPRINE HCL 10 MG TABS 379939 CYCLOBENZAPRINE HCL Inactive SEROQUEL 100 MG TABS 1/2 TABLET at hs SEROQUEL 100 MG TABS 259264 QUETIAPINE FUMARATE Inactive VISTARIL 25 MG CAPS 1-2 tablets three times a day as needed VISTARIL 25 MG CAPS 460561 HYDROXYZINE PAMOATE Inactive METHOCARBAMOL 500 MG TABS 1 to 2 qid prn back spasm METHOCARBAMOL 500 MG TABS 340764 METHOCARBAMOL Inactive QVAR 40 MCG/ACT AERS one puff three times a day as needed QVAR 40 MCG/ACT AERS BECLOMETHASONE DIPROPIONATE Inactive NIX CREME RINSE 1 % LIQD apply as directed tonight, repeat at 7 days NIX CREME RINSE 1 % LIQD PERMETHRIN Inactive MELOXICAM 15 MG TABS 1 po q day for pain with food MELOXICAM 15 MG TABS 847761 MELOXICAM Inactive ALPRAZOLAM 1 MG TABS 1 tab tid ALPRAZOLAM 1 MG TABS 941454 ALPRAZOLAM Inactive LOMOTIL 2.5-0.025 MG TAB 1 to 2 four times a day as needed for diarrhea 05/28 LOMOTIL 2.5-0.025 MG TAB 1222945 DIPHENOXYLATE-ATROPINE Inactive PREDNISONE 20 MG TAB 2 tabs daily for 5 days, then 1 daily for 5 days PREDNISONE 20 MG TAB 172605 PREDNISONE Inactive TYLENOL WITH CODEINE #3 300-30 MG TABS 1 to 2 four times a day as needed for pain TYLENOL WITH CODEINE #3 300-30 MG TABS 607887 ACETAMINOPHEN-CODEINE Inactive PERMETHRIN 5 % CREA applyhead to toes tonight and then rinse off in 18 hours. repeat at 7 days if needed. PERMETHRIN 5 % CREA 884716 PERMETHRIN Inactive CLONAZEPAM 1 MG TABS take at bedtime CLONAZEPAM 1 MG TABS 091759 CLONAZEPAM Inactive FLEXERIL 10 MG TAB 1/2 to one tablet every 12 hours as needed FLEXERIL 10 MG TAB CYCLOBENZAPRINE HCL Inactive CELEXA 20 MG TABS 1and 1/2 tablets by mouth daily CELEXA 20 MG TABS 503372 CITALOPRAM HYDROBROMIDE Inactive AMOXICILLIN 500 MG TABS take one tab po tid x 10 days AMOXICILLIN 500 MG TABS 958809 AMOXICILLIN Inactive TRIAMCINOLONE ACETONIDE 0.1 % CREA apply three times daily prn rash TRIAMCINOLONE ACETONIDE 0.1 % CREA 1869954 TRIAMCINOLONE ACETONIDE Inactive SEROQUEL 100 MG TABS 1 tablet at HS SEROQUEL 100 MG TABS 196394 QUETIAPINE FUMARATE Inactive SEROQUEL 50 MG TABS 1 tablet at HS SEROQUEL 50 MG TABS 150370 QUETIAPINE FUMARATE Inactive HYDROCODONE-ACETAMINOPHEN 5-325 MG TABS 1/2 to 1 po q 4 hours prn pain 11/13 HYDROCODONE-ACETAMINOPHEN 5-325 MG TABS 613426 HYDROCODONE- ACETAMINOPHEN Inactive PREDNISONE 20 MG TABS 1 tablet by mouth twice daily for 2 days, then 1 daily for 2 days PREDNISONE 20 MG TABS 285507 PREDNISONE Inactive GUAIFENESIN-CODEINE 100-10 MG/5ML SYRP 1-2 tsp PO q6h PRN cough GUAIFENESIN-CODEINE 100-10 MG/5ML SYRP 423073 GUAIFENESIN-CODEINE Inactive GUAIFENESIN-CODEINE 100-10 MG/5ML SYRP 1 tsp PO q6h PRN cough GUAIFENESIN-CODEINE 100-10 MG/5ML SYRP 131028 GUAIFENESIN-CODEINE Inactive BACTROBAN 2 % OINTMENT Apply bid to affected area BACTROBAN 2 % OINTMENT 389985 MUPIROCIN Inactive PROMETHAZINE HCL 25 MG TABS take 1 po Q 8 hours prn nausea and vomiting 12/11 PROMETHAZINE HCL 25 MG TABS 271440 PROMETHAZINE HCL Inactive AMOXICILLIN 400 MG/5ML SUSR 6ml three times a day for 10 days AMOXICILLIN 400 MG/5ML SUSR 547589 AMOXICILLIN Inactive LAMISIL AT 1 % CREA apply bid to rash LAMISIL AT 1 % CREA 162848 TERBINAFINE HCL Inactive PROMETHAZINE HCL 25 MG TABS 1 four times a day as needed for nausea/vomiting PROMETHAZINE HCL 25 MG TABS 857119 PROMETHAZINE HCL Inactive GUAIFENESIN-CODEINE 100-10 MG/5ML SYRP 1 tsp PO q6h PRN cough GUAIFENESIN-CODEINE 100-10 MG/5ML SYRP 938790 GUAIFENESIN-CODEINE Inactive KEFLEX 500 MG CAP 1 po qid KEFLEX 500 MG CAP 434712 CEPHALEXIN Inactive GUAIFENESIN-CODEINE 100-10 MG/5ML SYRP 1 tsp PO q6h PRN cough GUAIFENESIN-CODEINE 100-10 MG/5ML SYRP 032562 GUAIFENESIN-CODEINE Inactive TYLENOL WITH CODEINE #3 300-30 MG TABS ONE TABLET FOUR TIMES A DAY NEEDED for pain or cough TYLENOL WITH CODEINE #3 300-30 MG TABS 119608 ACETAMINOPHEN-CODEINE Inactive STROMECTOL 3 MG TABS 6 pills by mouth x 1; repeat in 10 days 2012 STROMECTOL 3 MG TABS 276752 IVERMECTIN Inactive LOMOTIL 2.5-0.025 MG TAB 1 to 2 four times a day as needed for diarrhea 01/21 LOMOTIL 2.5-0.025 MG TAB 3261792 DIPHENOXYLATE-ATROPINE Inactive CELEXA 20 MG TABS Take 1.5 tablets daily CELEXA 20 MG TABS 347944 CITALOPRAM HYDROBROMIDE Inactive PERMETHRIN 5 % CREA apply neck to toes tonight and then rinse off in morning. repeat at 7 days PERMETHRIN 5 % CREA 686605 PERMETHRIN Inactive STROMECTOL 3 MG TABS 5 tablets by mouth one time on an empty stomach, may repeat in 2 weeks if needed STROMECTOL 3 MG TABS 215290 IVERMECTIN Inactive BACTRIM DS 800-160 MG TAB 1 tab by mouth twice daily BACTRIM DS 800-160 MG TAB 807501 TRIMETHOPRIM-SULFAMETHOXAZOLE Inactive SEROQUEL 200 MG TABS 1 tablet at bedtime. SEROQUEL 200 MG TABS 169131 QUETIAPINE FUMARATE Inactive CYCLOBENZAPRINE HCL 10 MG TABS 1 three times a day as needed for back spasm CYCLOBENZAPRINE HCL 10 MG TABS 978771 CYCLOBENZAPRINE HCL Inactive HYDROXYZINE HCL 10 MG TABS 1 to 2 three times a day as needed for itching HYDROXYZINE HCL 10 MG TABS 292421 HYDROXYZINE HCL Inactive TESSALON PERLES 100 MG CAP 1 tablet by mouth 3 times daily 01/20 TESSALON PERLES 100 MG CAP 133690 BENZONATATE Inactive CYCLOBENZAPRINE HCL 10 MG TABS 1/2 to 1 tablet by mouth three times daily as needed for muscle spasm/pain CYCLOBENZAPRINE HCL 10 MG TABS 098935 CYCLOBENZAPRINE HCL Inactive CYCLOBENZAPRINE HCL 10 MG TABS 1/2 to 1 tablet every 4 hours CYCLOBENZAPRINE HCL 10 MG TABS 504989 CYCLOBENZAPRINE HCL Inactive LATUDA 20 MG TABS 1 tab at at night with meal LATUDA 20 MG TABS LURASIDONE HCL Inactive IBUPROFEN 600 MG TAB 1 tablet three times a day as needed IBUPROFEN 600 MG TAB 104467 IBUPROFEN Inactive PROAIR HFA 108 (90 BASE) MCG/ACT AERS 2 puffs four times a day as needed 2011 PROAIR HFA 108 (90 BASE) MCG/ACT AERS ALBUTEROL SULFATE Inactive FETZIMA 40 MG ORAL [id number] FETZIMA 40 MG ORAL [id number] LEVOMILNACIPRAN HCL Inactive SEROQUEL 200 MG ORAL TABS Take 1 tablet at hs SEROQUEL 200 MG ORAL TABS 710488 QUETIAPINE FUMARATE Inactive AMOXICILLIN 500 MG TABS 2 tabs twice a day for 10 days AMOXICILLIN 500 MG TABS 713120 AMOXICILLIN Inactive PROMETHAZINE HCL 25 MG TABS 1 four times a day as needed for vomiting PROMETHAZINE HCL 25 MG TABS 425924 PROMETHAZINE HCL Inactive BACTRIM DS 800-160 MG TAB 1 tab by mouth twice daily BACTRIM DS 800-160 MG TAB 122749 TRIMETHOPRIM-SULFAMETHOXAZOLE Inactive AMOXICILLIN 400 MG/5ML SUSR 5ml po TID x 10 days AMOXICILLIN 400 MG/5ML SUSR 409973 AMOXICILLIN Inactive FLAGYL 500 MG TABS four tabs PO one time FLAGYL 500 MG TABS 350078 METRONIDAZOLE Inactive AMOXICILLIN 500 MG TABS Take one tab by mouth 3 times daily, morning, afternoon and evening for 7 days. AMOXICILLIN 500 MG TABS 917900 AMOXICILLIN Inactive AMOXICILLIN 500 MG CAPS 2 po BID x 10 days AMOXICILLIN 500 MG CAPS 685560 AMOXICILLIN Inactive AMOXICILLIN 500 MG CAPS 2 po BID x 10 days AMOXICILLIN 500 MG CAPS 574884 AMOXICILLIN Inactive PENICILLIN V POTASSIUM 500 MG TABS 1 TID PENICILLIN V POTASSIUM 500 MG TABS 606057 PENICILLIN V POTASSIUM Inactive BACTRIM DS 800-160 MG TABS 1 po BID x 10 days BACTRIM DS 800-160 MG TABS 302349 SULFAMETHOXAZOLE-TRIMETHOPRIM Inactive ZITHROMAX 250 MG TAB 2 po today, then 1 po q days 2-5 ZITHROMAX 250 MG TAB 9221426 AZITHROMYCIN Inactive TAMIFLU 75 MG CAPS 1 bid x 5 days TAMIFLU 75 MG CAPS OSELTAMIVIR PHOSPHATE Inactive AZITHROMYCIN 250 MG TABS 2 po qd x 1 day, then 1 po qd x 4 days AZITHROMYCIN 250 MG TABS 5057966 AZITHROMYCIN Inactive MEDROL (NISA) 4 MG TABS 6 tabs on day 1, 5 tabs on day 2, 4 tabs on day 3, 3 tabs on day 4, 2 tabs on day 5, 1 tab on day 6 MEDROL ( NISA) 4 MG TABS 002081 METHYLPREDNISOLONE Inactive SUPRAX 400 MG CAPS Take one tablet twice daily for 7 days SUPRAX 400 MG CAPS CEFIXIME Inactive Immunizations Vaccine Administration Date Value Standard Description Seasonal influenza vaccine, injectable, containing preservative, for > 3 years old (Afluria, FluLaval, Fluzone, Fluvirin, Fluarix, Agriflu(>=18 yo)) Fluzone (>3 yrs.) [RTH564] Influenza, seasonal, injectable pneumococcal immunization administered Pneumovax 23 [CVX33] pneumococcal polysaccharide vaccine, 23 valent Seasonal influenza vaccine, injectable, containing preservative, for > 3 years old (Afluria, FluLaval, Fluzone, Fluvirin, Fluarix, Agriflu(>=18 yo)) Fluzone (>3 yrs.) [[id number]] Influenza, seasonal, injectable Seasonal influenza vaccine, injectable, containing preservative, for > 3 years old (Afluria, FluLaval, Fluzone, Fluvirin, Fluarix, Agriflu(>=18 yo)) Fluzone (>3 yrs.) [WFP891] Influenza, seasonal, injectable hepatitis B vaccine #1 [...] Measured Encounters Code Encounter Date Provider Facility CPT-48154 Level 3 Est. Patient 11:04:11 [employer] INSPECTOR Jani Marrero MD [facility] CPT-67424 Level 3 Est. Patient 12:02:27 [employer] INSPECTOR Andrei Nichols MD [facility] CPT-26743 Level 3 Est. Patient 12:47:17 FI[employer]INK[employer] INSPECTOR Andrei Nichols MD [facility] CPT-18444 Level 3 Est. Patient 14:51:20 FI[employer]PAR[employer]INKL[employer] INSPECTOR Shikha Randolph [facility] CPT-48488 Level 3 Est. Patient 10:42:38 CDT Shikha Randolph [facility] CPT-42742 Level 3 Est. Patient 18:20:39 CDT Prisca Lockwood MD PhD [facility] CPT-36898 Level 3 Est. Patient 16:42:47 FI[employer] INSPECTOR Rosalie Boyd [facility] CPT-29639 Level 3 Est. Patient 14:34:36 FI[employer]INK[employer] INSPECTOR Rosalie Boyd [facility] CPT-24963 Level 4 Est. Patient 10:23:07 FI[employer]INK[employer] INSPECTOR Andrei Nichols MD [facility]-11211 Level 3 Est. Patient 16:47:31 FI[employer]INK[employer] INSPECTOR Andrei Nichols MD [facility]-18575 Level 3 Est. Patient 11:59:14 CDT Rosalie Boyd [facility]-27437 Level 3 Est. Patient 15:30:34 CDT Giovany URBINA [facility]-10555 Level 3 Est. Patient 11:03:03 CDT Rosalie Boyd [facility]-57103 Level 3 Est. Patient 11:08:07 CDT Rosalie Boyd [facility] CPT-91170 Level 3 Est. Patient 14:07:32 CDT Andrie Nichols MD [facility]-73609 Level 3 Est. Patient 17:08:28 CDT Andrei Nichols MD [facility]-88488 Level 3 Est. Patient 13:10:13 CDT Jani Marrero MD [facility]-52431 Level 3 Est. Patient 11:27:12 CDT Jani Marrero MD [facility]-23363 Level 3 Est. Patient 13:44:42 CDT Andrei Nichols MD [facility]-12119 Level 3 Est. Patient 12:34:57 FI[employer] INSPECTOR Andrei Nichols MD [facility]-28534 Level 3 Est. Patient 15:30:06 CDT Jani Marrero MD [facility]-60895 Level 3 Est. Patient 21:59:00 CDT Corky Mckeon [facility] CPT-75355 Level 3 Est. Patient 17:12:49 CDT Andrei Nichols MD [facility] CPT-77436 Level 4 Est. Patient 12:27:45 FI[employer] INSPECTOR Andrei Nichols MD [facility] CPT-95592 Level 3 Est. Patient 12:15:34 [employer] INSPECTOR Andrei Nichols MD [facility] Procedures Code Procedure Name Date Entry Date Standard Description CPT-OV Office Visit 11:36:40 CDT CPT-78001 Administration 2+ single or combination vaccines inc oral 07:50:30 CDT CPT-12662 Administration single or combination vaccine inc oral 07 :50:30 CDT CPT-73682 Pneumovax 07:50:30 CDT CPT-38751 Influenza split virus > age 3 07:50:30 CDT CPT-OV Office Visit 11:49:10 [employer] INSPECTOR CPT-77514 Nexplanon Removal with Reinsertion 14:02:06 [employer] INSPECTOR CPT-J7307 Nexplanon (Implant) 14:02:06 [employer] INSPECTOR CPT-OV Office Visit 14:02:06 [employer]INK[employer] INSPECTOR CPT-OV Office Visit 11:58:04 [employer] INSPECTOR CPT-43467 Administration single or combination vaccine inc oral 11 :31:07 CDT CPT-51375 Influenza split virus > age 3 11:31:07 CDT CPT-39320 Administration single or combination vaccine inc oral 10 :34:13 CDT CPT-62911 Influenza split virus > age 3 10:34:13 CDT
--- OUTSIDE RECORDS SUMMARY | 2017-01-02 18:43 | XMS REPORT ---
Author Author CRISTINO RUSH Organization [employer] Address Unknown Phone Unavailable Care Team Providers [employer] Software Consultant Name Role Phone CRISTINO RUSH CP Unavailable [...] history of diabetes mellitus Z83.3 Active Medications No Known Medications Results No Known Results Summary Purpose [employer] Submission
--- OUTSIDE RECORDS SUMMARY | 2017-01-02 18:43 | XMS REPORT | Clinical Summary ---
Author Author Admin, E Organization [facility] Address Unknown Phone Unavailable Allergies, Adverse [...] abscess without sinus BRONCHITIS 490 Resolved Andrei Nicohls MD Bronchitis, not specified as acute or [...] Sinusitis, frontal, acute 461.1 Resolved Shikha Yokum [employer] WORK[employer] Acute frontal sinusitis Pharyngitis 462 Resolved Shikha Yokum [employer] WORKER Acute pharyngitis Scabies 133.0 Resolved Shikha Yokum EXPLOSIVES WORKER Scabies Folliculitis 704.8 Resolved Shikha Yokum [employer]PL[employer]IV[employer] WORKER Other specified diseases of hair and hair [...] Pool PA ECZEMA ICD-692.9 Inactive Shikha Randolph EXPLOSIVES WORKER OTITIS MEDIA ICD-382.9 Inactive Ary URBINA 09/16 PHARYNGITIS ICD-462 Inactive Andrei Nichols MD UNSPECIFIED DISORDER TEETH&SUPPORTING STRUCTURES ICD-525.9 12/29 Inactive Shikha Randolph EXPLOSIVES WORKER PHARYNGITIS-ACUTE ICD-462 Inactive Rosalie Boyd EXPLOSIVES WORKER DIARRHEA ICD-787.91 Inactive Andrei Nichols MD SHOULDER PAIN ICD-719.41 Inactive Shikha Randolph EXPLOSIVES WORKER NAUSEA AND VOMITING ICD-787.01 Inactive Andrei Nichols [...] PhD Dental caries ICD-521.00 Inactive Shikha Randolph [employer] WORKER Tooth pain ICD-525.9 Inactive Prisca Lockwood MD PhD Head lice ICD-132.0 Inactive Prisca Lockwood MD PhD Upper respiratory infection ICD-465.9 Inactive Prisca Lockwood MD PhD Sinusitis, frontal, acute ICD-461.1 Inactive Shikha Yokum [employer] WORK[employer] Pharyngitis ICD-462 Inactive Shikha Yokum EXPLOSIVES WORKER 2013 Scabies ICD-133.0 Inactive Shikha Yokum EXPLOSIVES WORKER 12/29 Folliculitis ICD-704.8 Inactive Shikha Yokum [employer] WORKER Cough ICD-786.2 Inactive Andrei Nichols MD SINUSITIS, ACUTE ICD-461.9 Inactive Jani Marrero MD Medication List Medication Instructions Start Date Stop Date Generic Name NDC Status Provider Patient Instruction ZITHROMAX 250 MG TAB 2 po today, then 1 po q days 2-5 AZITHROMYCIN [id number] No Longer Active Jani Marrero MD Active IBUPROFEN 800 MG TABS 1 tab PO TID IBUPROFEN 31791045415 Active Jani Marrero MD Active WELLBUTRIN SR 100 MG ORAL [id number] 1 TAB PO DAILY BUPROPION HCL 24571834760 Active Jani Marrero MD Active AMITRIPTYLINE HCL 50 MG TAB 1 po q hs for sleep AMITRIPTYLINE HCL 59686999565 Active Jani Marrero MD Active PROMETHAZINE HCL 25 MG TABS 1 four times a day as needed for vomiting PROMETHAZINE HCL 93612365807 No Longer Active Jani Marrero MD Active AMOXICILLIN 500 MG TABS 2 tabs twice a day for 10 days AMOXICILLIN 14212945785 No Longer Active Jani Marrero MD Active SEROQUEL 200 MG ORAL TABS Take 1 tablet at hs QUETIAPINE FUMARATE 65788834122 No Longer Active Jani Marrero MD Active FETZIMA 40 MG ORAL [id number] LEVOMILNACIPRAN HCL 18468803800 No Longer Active Jani Marrero MD Active PROAIR HFA 108 (90 BASE) MCG/ACT AERS 2 puffs four times a day as needed 2015 ALBUTEROL SULFATE 29014769387 Active Andrei Nichols MD Active KLONOPIN 1 MG TABS 1 tablet TID CLONAZEPAM 87936648504 Active Andrei Nichols MD Active PROAIR HFA 108 (90 BASE) MCG/ACT AERS 2 puffs four times a day as needed 2011 ALBUTEROL SULFATE 57853152957 No Longer Active Alondra Denton MD Active IBUPROFEN 600 MG TAB 1 tablet three times a day as needed IBUPROFEN 73395225770 No Longer Active Alondra Denton MD Active LATUDA 20 MG TABS 1 tab at at night with meal LURASIDONE HCL 08894573445 No Longer Active Alondra Denton MD Active CYCLOBENZAPRINE HCL 10 MG TABS 1/2 to 1 tablet every 4 hours CYCLOBENZAPRINE HCL 92502087670 No Longer Active Alondra Denton MD Active CYCLOBENZAPRINE HCL 10 MG TABS 1/2 to 1 tablet by mouth three times daily as needed for muscle spasm/pain CYCLOBENZAPRINE HCL 39971661314 No Longer Active Alonrda Denton MD Active SUPRAX 400 MG CAPS Take one tablet twice daily for 7 days CEFIXIME 16592014254 No Longer Active Shikha Randolph APRN Active TESSALON PERLES 100 MG CAP 1 tablet by mouth 3 times daily 01/20 BENZONATATE 26415710836 No Longer Active Shikha Yokum [employer]PLOSIVES WORKER Active HYDROXYZINE HCL 10 MG TABS 1 to 2 three times a day as needed for itching HYDROXYZINE HCL 66364378597 No Longer Active Shikha Yokum EXPLOSIVES WORKER Active CYCLOBENZAPRINE HCL 10 MG TABS 1 three times a day as needed for back spasm CYCLOBENZAPRINE HCL 04317552949 No Longer Active Shikha Yokum EXPLOSIVES WORKER Active SEROQUEL 200 MG TABS 1 tablet at bedtime. QUETIAPINE FUMARATE 51966115481 No Longer Active Shikha Yokum [employer]PLOSIVES WORKER Active BACTRIM DS 800-160 MG TAB 1 tab by mouth twice daily TRIMETHOPRIM-SULFAMETHOXAZOLE 55759415126 No Longer Active Shikha Yokum [employer]PLOSIVES WORKER Active STROMECTOL 3 MG TABS 5 tablets by mouth one time on an empty stomach, may repeat in 2 weeks if needed IVERMECTIN 05311758859 No Longer Active Shikha Yokum [employer]PLOSIV[employer] WORKER Active PERMETHRIN 5 % CREA apply neck to toes tonight and then rinse off in morning. repeat at 7 days PERMETHRIN 87653119458 No Longer Active Andrei Nichols MD Active MEDROL (NISA) 4 MG TABS 6 tabs on day 1, 5 tabs on day 2, 4 tabs on day 3, 3 tabs on day 4, 2 tabs on day 5, 1 tab on day 6 METHYLPREDNISOLONE 15508259187 No Longer Active Prisca Lockwood MD PhD Active AZITHROMYCIN 250 MG TABS 2 po qd x 1 day, then 1 po qd x 4 days AZITHROMYCIN 23326831632 No Longer Active Prisca Lockwood MD PhD Active CELEXA 20 MG TABS Take 1.5 tablets daily CITALOPRAM HYDROBROMIDE 41123498655 No Longer Active Prisca Lockwood MD PhD Active LOMOTIL 2.5-0.025 MG TAB 1 to 2 four times a day as needed for diarrhea 01/21 DIPHENOXYLATE-ATROPINE 50264655640 No Longer Active Prisca Lockwood MD PhD Active TAMIFLU 75 MG CAPS 1 bid x 5 days OSELTAMIVIR PHOSPHATE 52902742277 No Longer Active Rosalie Boyd APRN Active ZITHROMAX 250 MG TAB 2 po today, then 1 po q days 2-5 AZITHROMYCIN 06860717444 No Longer Active Rosalie Boyd APRN Active STROMECTOL 3 MG TABS 6 pills by mouth x 1; repeat in 10 days 2012 IVERMECTIN 63308985542 No Longer Active Rosalie Boyd APRN Active TYLENOL WITH CODEINE #3 300-30 MG TABS ONE TABLET FOUR TIMES A DAY NEEDED for pain or cough ACETAMINOPHEN-CODEINE 57231054695 No Longer Active Rosalie Boyd APRN Active GUAIFENESIN-CODEINE 100-10 MG/5ML SYRP 1 tsp PO q6h PRN cough GUAIFENESIN-CODEINE 02658925160 No Longer Active Rosalie Boyd APRN Active KEFLEX 500 MG CAP 1 po qid CEPHALEXIN 16303852517 No Longer Active Rosalie Boyd APRN Active GUAIFENESIN-CODEINE 100-10 MG/5ML SYRP 1 tsp PO q6h PRN cough GUAIFENESIN-CODEINE 02122176760 No Longer Active Rosalie Boyd APRN Active PROMETHAZINE HCL 25 MG TABS 1 four times a day as needed for nausea/vomiting PROMETHAZINE HCL 17784000146 No Longer Active Rosalie Boyd APRN Active LAMISIL AT 1 % CREA apply bid to rash TERBINAFINE HCL 26083232551 No Longer Active Andrei Nichols MD Active AMOXICILLIN 400 MG/5ML SUSR 6ml three times a day for 10 days AMOXICILLIN 05673768177 No Longer Active Andrei Nichols MD Active PROMETHAZINE HCL 25 MG TABS take 1 po Q 8 hours prn nausea and vomiting 12/11 PROMETHAZINE HCL 71386781230 No Longer Active Andrei Nichols MD Active BACTROBAN 2 % OINTMENT Apply bid to affected area MUPIROCIN 51890060547 No Longer Active Andrei Nichols MD Active GUAIFENESIN-CODEINE 100-10 MG/5ML SYRP 1 tsp PO q6h PRN cough GUAIFENESIN-CODEINE 77671894076 No Longer Active Andrei Nichols MD Active BACTRIM DS 800-160 MG TABS 1 po BID x 10 days SULFAMETHOXAZOLE-TRIMETHOPRIM 96701492427 No Longer Active Rosalie Boyd APRN Active GUAIFENESIN-CODEINE 100-10 MG/5ML SYRP 1-2 tsp PO q6h PRN cough GUAIFENESIN-CODEINE 68650126952 No Longer Active Giovany URBINA Active PREDNISONE 20 MG TABS 1 tablet by mouth twice daily for 2 days, then 1 daily for 2 days PREDNISONE 13894761437 No Longer Active Giovany URBINA Active HYDROCODONE-ACETAMINOPHEN 5-325 MG TABS 1/2 to 1 po q 4 hours prn pain 11/13 HYDROCODONE-ACETAMINOPHEN 91819388461 No Longer Active Rosalie Boyd APRN Active PENICILLIN V POTASSIUM 500 MG TABS 1 TID PENICILLIN V POTASSIUM 29749146221 No Longer Active Andrei Nichols MD Active SEROQUEL 50 MG TABS 1 tablet at HS QUETIAPINE FUMARATE 70323989637 No Longer Active Andrei Nichols MD Active SEROQUEL 100 MG TABS 1 tablet at HS QUETIAPINE FUMARATE 02215064826 No Longer Active Andrei Nichols MD Active TRIAMCINOLONE ACETONIDE 0.1 % CREA apply three times daily prn rash TRIAMCINOLONE ACETONIDE 88966939214 No Longer Active Andrei Nichols MD Active AMOXICILLIN 500 MG TABS take one tab po tid x 10 days AMOXICILLIN 56300669341 No Longer Active Andrei Nichols MD Active CELEXA 20 MG TABS 1and 1/2 tablets by mouth daily CITALOPRAM HYDROBROMIDE 46118363910 No Longer Active Ary Pool PA Active FLEXERIL 10 MG TAB 1/2 to one tablet every 12 hours as needed CYCLOBENZAPRINE HCL 71938325750 No Longer Active Ary Pool PA Active CLONAZEPAM 1 MG TABS take at bedtime CLONAZEPAM 77513355711 No Longer Active Ary Pool PA Active PERMETHRIN 5 % CREA applyhead to toes tonight and then rinse off in 18 hours. repeat at 7 days if needed. PERMETHRIN 31161017006 No Longer Active Ary Pool PA Active AMOXICILLIN 500 MG CAPS 2 po BID x 10 days AMOXICILLIN 19898577334 No Longer Active Andrei Nichols MD Active TYLENOL WITH CODEINE #3 300-30 MG TABS 1 to 2 four times a day as needed for pain ACETAMINOPHEN-CODEINE 44093509682 No Longer Active Retarylee Hampton Active PREDNISONE 20 MG TAB 2 tabs daily for 5 days, then 1 daily for 5 days PREDNISONE 94881127258 No Longer Active Reta Memo Active LOMOTIL 2.5-0.025 MG TAB 1 to 2 four times a day as needed for diarrhea 05/28 DIPHENOXYLATE-ATROPINE 74100804158 No Longer Active Reta Memo Active ALPRAZOLAM 1 MG TABS 1 tab tid ALPRAZOLAM 88237573737 No Longer Active Reta Memo Active AMOXICILLIN 500 MG CAPS 2 po BID x 10 days AMOXICILLIN 33455735455 No Longer Active Andrei Nichols MD Active AMOXICILLIN 500 MG TABS Take one tab by mouth 3 times daily, morning, afternoon and evening for 7 days. AMOXICILLIN 16799488509 No Longer Active Virginia Alejandra RN Active VICODIN 5-300 MG TABS one tab PO Q 6 hours PRN pain HYDROCODONE-ACETAMINOPHEN 05533363552 No Longer Active Virginia Alejandra RN Active FLAGYL 500 MG TABS four tabs PO one time METRONIDAZOLE 36533100691 No Longer Active Alondra Denton MD Active MELOXICAM 15 MG TABS 1 po q day for pain with food MELOXICAM 57084571273 No Longer Active Alondra Denton MD Active AMOXICILLIN 400 MG/5ML SUSR 5ml po TID x 10 days AMOXICILLIN 26330404795 No Longer Active Jani Marrero MD Active NIX CREME RINSE 1 % LIQD apply as directed carlotta, repeat at 7 days PERMETHRIN 86377718848 No Longer Active Corky Mckeon DO Active QVAR 40 MCG/ACT AERS one puff three times a day as needed BECLOMETHASONE DIPROPIONATE 46079206079 No Longer Active Andrei Nichols MD Active METHOCARBAMOL 500 MG TABS 1 to 2 qid prn back spasm METHOCARBAMOL 16285019436 No Longer Active Andrei Nichols MD Active VISTARIL 25 MG CAPS 1-2 tablets three times a day as needed HYDROXYZINE PAMOATE 53518994474 No Longer Active Andrei Nichols MD Active SEROQUEL 100 MG TABS 1/2 TABLET at hs QUETIAPINE FUMARATE 43210823391 No Longer Active Aicha Rizzo RN Active BACTRIM DS 800-160 MG TAB 1 tab by mouth twice daily TRIMETHOPRIM-SULFAMETHOXAZOLE 72506706435 No Longer Active Prisca Lockwood MD PhD Active CYCLOBENZAPRINE HCL 10 MG TABS TAKE 1/2 - 1 TAB EVERY 12 HOURS NEEDED 2010 CYCLOBENZAPRINE HCL 73128414785 No Longer Active Andrei Nichols MD Active CYCLOBENZAPRINE HCL 10 MG TABS TAKE 1/2 - 1 TAB EVERY 12 HOURS NEEDED 2010 CYCLOBENZAPRINE HCL 10 MG TABS 742279 CYCLOBENZAPRINE HCL Inactive SEROQUEL 100 MG TABS 1/2 TABLET at hs SEROQUEL 100 MG TABS 909144 QUETIAPINE FUMARATE Inactive VISTARIL 25 MG CAPS 1-2 tablets three times a day as needed VISTARIL 25 MG CAPS 005152 HYDROXYZINE PAMOATE Inactive METHOCARBAMOL 500 MG TABS 1 to 2 qid prn back spasm METHOCARBAMOL 500 MG TABS 997669 METHOCARBAMOL Inactive QVAR 40 MCG/ACT AERS one puff three times a day as needed QVAR 40 MCG/ACT AERS BECLOMETHASONE DIPROPIONATE Inactive NIX CREME RINSE 1 % LIQD apply as directed tonight, repeat at 7 days NIX CREME RINSE 1 % LIQD PERMETHRIN Inactive MELOXICAM 15 MG TABS 1 po q day for pain with food MELOXICAM 15 MG TABS 274869 MELOXICAM Inactive ALPRAZOLAM 1 MG TABS 1 tab tid ALPRAZOLAM 1 MG TABS 515899 ALPRAZOLAM Inactive LOMOTIL 2.5-0.025 MG TAB 1 to 2 four times a day as needed for diarrhea 05/28 LOMOTIL 2.5-0.025 MG TAB 2566820 DIPHENOXYLATE-ATROPINE Inactive PREDNISONE 20 MG TAB 2 tabs daily for 5 days, then 1 daily for 5 days PREDNISONE 20 MG TAB 186970 PREDNISONE Inactive TYLENOL WITH CODEINE #3 300-30 MG TABS 1 to 2 four times a day as needed for pain TYLENOL WITH CODEINE #3 300-30 MG TABS 461250 ACETAMINOPHEN-CODEINE Inactive PERMETHRIN 5 % CREA applyhead to toes tonight and then rinse off in 18 hours. repeat at 7 days if needed. PERMETHRIN 5 % CREA 513738 PERMETHRIN Inactive CLONAZEPAM 1 MG TABS take at bedtime CLONAZEPAM 1 MG TABS 784993 CLONAZEPAM Inactive FLEXERIL 10 MG TAB 1/2 to one tablet every 12 hours as needed FLEXERIL 10 MG TAB CYCLOBENZAPRINE HCL Inactive CELEXA 20 MG TABS 1and 1/2 tablets by mouth daily CELEXA 20 MG TABS 889291 CITALOPRAM HYDROBROMIDE Inactive AMOXICILLIN 500 MG TABS take one tab po tid x 10 days AMOXICILLIN 500 MG TABS 542087 AMOXICILLIN Inactive TRIAMCINOLONE ACETONIDE 0.1 % CREA apply three times daily prn rash TRIAMCINOLONE ACETONIDE 0.1 % CREA 5065978 TRIAMCINOLONE ACETONIDE Inactive SEROQUEL 100 MG TABS 1 tablet at HS SEROQUEL 100 MG TABS 873625 QUETIAPINE FUMARATE Inactive SEROQUEL 50 MG TABS 1 tablet at HS SEROQUEL 50 MG TABS 605335 QUETIAPINE FUMARATE Inactive HYDROCODONE-ACETAMINOPHEN 5-325 MG TABS 1/2 to 1 po q 4 hours prn pain 11/13 HYDROCODONE-ACETAMINOPHEN 5-325 MG TABS 920063 HYDROCODONE- ACETAMINOPHEN Inactive PREDNISONE 20 MG TABS 1 tablet by mouth twice daily for 2 days, then 1 daily for 2 days PREDNISONE 20 MG TABS 003054 PREDNISONE Inactive GUAIFENESIN-CODEINE 100-10 MG/5ML SYRP 1-2 tsp PO q6h PRN cough GUAIFENESIN-CODEINE 100-10 MG/5ML SYRP 277097 GUAIFENESIN-CODEINE Inactive GUAIFENESIN-CODEINE 100-10 MG/5ML SYRP 1 tsp PO q6h PRN cough GUAIFENESIN-CODEINE 100-10 MG/5ML SYRP 332972 GUAIFENESIN-CODEINE Inactive BACTROBAN 2 % OINTMENT Apply bid to affected area BACTROBAN 2 % OINTMENT 021327 MUPIROCIN Inactive PROMETHAZINE HCL 25 MG TABS take 1 po Q 8 hours prn nausea and vomiting 12/11 PROMETHAZINE HCL 25 MG TABS 630449 PROMETHAZINE HCL Inactive AMOXICILLIN 400 MG/5ML SUSR 6ml three times a day for 10 days AMOXICILLIN 400 MG/5ML SUSR 854205 AMOXICILLIN Inactive LAMISIL AT 1 % CREA apply bid to rash LAMISIL AT 1 % CREA 598774 TERBINAFINE HCL Inactive PROMETHAZINE HCL 25 MG TABS 1 four times a day as needed for nausea/vomiting PROMETHAZINE HCL 25 MG TABS 784527 PROMETHAZINE HCL Inactive GUAIFENESIN-CODEINE 100-10 MG/5ML SYRP 1 tsp PO q6h PRN cough GUAIFENESIN-CODEINE 100-10 MG/5ML SYRP 300458 GUAIFENESIN-CODEINE Inactive KEFLEX 500 MG CAP 1 po qid KEFLEX 500 MG CAP 267272 CEPHALEXIN Inactive GUAIFENESIN-CODEINE 100-10 MG/5ML SYRP 1 tsp PO q6h PRN cough GUAIFENESIN-CODEINE 100-10 MG/5ML SYRP 425296 GUAIFENESIN-CODEINE Inactive TYLENOL WITH CODEINE #3 300-30 MG TABS ONE TABLET FOUR TIMES A DAY NEEDED for pain or cough TYLENOL WITH CODEINE #3 300-30 MG TABS 439523 ACETAMINOPHEN-CODEINE Inactive STROMECTOL 3 MG TABS 6 pills by mouth x 1; repeat in 10 days 2012 STROMECTOL 3 MG TABS 405570 IVERMECTIN Inactive LOMOTIL 2.5-0.025 MG TAB 1 to 2 four times a day as needed for diarrhea 01/21 LOMOTIL 2.5-0.025 MG TAB 0456335 DIPHENOXYLATE-ATROPINE Inactive CELEXA 20 MG TABS Take 1.5 tablets daily CELEXA 20 MG TABS 398328 CITALOPRAM HYDROBROMIDE Inactive PERMETHRIN 5 % CREA apply neck to toes tonight and then rinse off in morning. repeat at 7 days PERMETHRIN 5 % CREA 787590 PERMETHRIN Inactive STROMECTOL 3 MG TABS 5 tablets by mouth one time on an empty stomach, may repeat in 2 weeks if needed STROMECTOL 3 MG TABS 004553 IVERMECTIN Inactive BACTRIM DS 800-160 MG TAB 1 tab by mouth twice daily BACTRIM DS 800-160 MG TAB 198317 TRIMETHOPRIM-SULFAMETHOXAZOLE Inactive SEROQUEL 200 MG TABS 1 tablet at bedtime. SEROQUEL 200 MG TABS 101771 QUETIAPINE FUMARATE Inactive CYCLOBENZAPRINE HCL 10 MG TABS 1 three times a day as needed for back spasm CYCLOBENZAPRINE HCL 10 MG TABS 678778 CYCLOBENZAPRINE HCL Inactive HYDROXYZINE HCL 10 MG TABS 1 to 2 three times a day as needed for itching HYDROXYZINE HCL 10 MG TABS 265967 HYDROXYZINE HCL Inactive TESSALON PERLES 100 MG CAP 1 tablet by mouth 3 times daily 01/20 TESSALON PERLES 100 MG CAP 999128 BENZONATATE Inactive CYCLOBENZAPRINE HCL 10 MG TABS 1/2 to 1 tablet by mouth three times daily as needed for muscle spasm/pain CYCLOBENZAPRINE HCL 10 MG TABS 997034 CYCLOBENZAPRINE HCL Inactive CYCLOBENZAPRINE HCL 10 MG TABS 1/2 to 1 tablet every 4 hours CYCLOBENZAPRINE HCL 10 MG TABS 927780 CYCLOBENZAPRINE HCL Inactive LATUDA 20 MG TABS 1 tab at at night with meal LATUDA 20 MG TABS LURASIDONE HCL Inactive IBUPROFEN 600 MG TAB 1 tablet three times a day as needed IBUPROFEN 600 MG TAB 296113 IBUPROFEN Inactive PROAIR HFA 108 (90 BASE) MCG/ACT AERS 2 puffs four times a day as needed 2011 PROAIR HFA 108 (90 BASE) MCG/ACT AERS ALBUTEROL SULFATE Inactive FETZIMA 40 MG ORAL ET30L-VRO FETZIMA 40 MG ORAL DA90A-HIB LEVOMILNACIPRAN HCL Inactive SEROQUEL 200 MG ORAL TABS Take 1 tablet at hs SEROQUEL 200 MG ORAL TABS 142200 QUETIAPINE FUMARATE Inactive AMOXICILLIN 500 MG TABS 2 tabs twice a day for 10 days AMOXICILLIN 500 MG TABS 566835 AMOXICILLIN Inactive PROMETHAZINE HCL 25 MG TABS 1 four times a day as needed for vomiting PROMETHAZINE HCL 25 MG TABS 316348 PROMETHAZINE HCL Inactive BACTRIM DS 800-160 MG TAB 1 tab by mouth twice daily BACTRIM DS 800-160 MG TAB 070886 TRIMETHOPRIM-SULFAMETHOXAZOLE Inactive AMOXICILLIN 400 MG/5ML SUSR 5ml po TID x 10 days AMOXICILLIN 400 MG/5ML SUSR 260648 AMOXICILLIN Inactive FLAGYL 500 MG TABS four tabs PO one time FLAGYL 500 MG TABS 859647 METRONIDAZOLE Inactive AMOXICILLIN 500 MG TABS Take one tab by mouth 3 times daily, morning, afternoon and evening for 7 days. AMOXICILLIN 500 MG TABS 277109 AMOXICILLIN Inactive AMOXICILLIN 500 MG CAPS 2 po BID x 10 days AMOXICILLIN 500 MG CAPS 992923 AMOXICILLIN Inactive AMOXICILLIN 500 MG CAPS 2 po BID x 10 days AMOXICILLIN 500 MG CAPS 974697 AMOXICILLIN Inactive PENICILLIN V POTASSIUM 500 MG TABS 1 TID PENICILLIN V POTASSIUM 500 MG TABS 522772 PENICILLIN V POTASSIUM Inactive BACTRIM DS 800-160 MG TABS 1 po BID x 10 days BACTRIM DS 800-160 MG TABS 268790 SULFAMETHOXAZOLE-TRIMETHOPRIM Inactive ZITHROMAX 250 MG TAB 2 po today, then 1 po q days 2-5 ZITHROMAX 250 MG TAB 5668297 AZITHROMYCIN Inactive TAMIFLU 75 MG CAPS 1 bid x 5 days TAMIFLU 75 MG CAPS 549316 OSELTAMIVIR PHOSPHATE Inactive AZITHROMYCIN 250 MG TABS 2 po qd x 1 day, then 1 po qd x 4 days AZITHROMYCIN 250 MG TABS 3901193 AZITHROMYCIN Inactive MEDROL (NISA) 4 MG TABS 6 tabs on day 1, 5 tabs on day 2, 4 tabs on day 3, 3 tabs on day 4, 2 tabs on day 5, 1 tab on day 6 MEDROL ( NISA) 4 MG TABS 640253 METHYLPREDNISOLONE Inactive SUPRAX 400 MG CAPS Take one tablet twice daily for 7 days SUPRAX 400 MG CAPS CEFIXIME Inactive ZITHROMAX 250 MG TAB 2 po today, then 1 po q days 2-5 ZITHROMAX 250 MG TAB 2732702 AZITHROMYCIN Inactive Immunizations Vaccine Administration Date Value Standard Description Seasonal influenza vaccine, injectable, containing preservative, for > 3 years old (Afluria, FluLaval, Fluzone, Fluvirin, Fluarix, Agriflu(>=18 yo)) Fluzone (>3 yrs.) [TIX754] Influenza, seasonal, injectable pneumococcal immunization administered Pneumovax 23 [CVX33] pneumococcal polysaccharide vaccine, 23 valent Seasonal influenza vaccine, injectable, containing preservative, for > 3 years old (Afluria, FluLaval, Fluzone, Fluvirin, Fluarix, Agriflu(>=18 yo)) Fluzone (>3 yrs.) [RFX779] Influenza, seasonal, injectable Seasonal influenza vaccine, injectable, containing preservative, for > 3 years old (Afluria, FluLaval, Fluzone, Fluvirin, Fluarix, Agriflu(>=18 yo)) Fluzone (>3 yrs.) [DSN552] Influenza, seasonal, injectable hepatitis B vaccine #1 [...] Measured Encounters Code Encounter Date Provider Facility CPT-54578 Level 3 Est. Patient 11:04:11 COMMERCIAL FRONT LOAD OPERATOR Jani Marrero MD [facility] CPT-24233 Level 3 Est. Patient 12:02:27 COMMERCIAL FRONT LOAD OPERATOR Andrei Nichols MD [facility] CPT-78563 Level 3 Est. Patient 12:47:17 COMMERCIAL FRONT LOAD OPERATOR Andrei Nichols MD [facility] CPT-82652 Level 3 Est. Patient 14:51:20 COMMERCIAL FRONT LOAD OPERATOR Shikha Yokum [facility] CPT-66479 Level 3 Est. Patient 10:42:38 CDT Shikha Randolph [facility] CPT-99425 Level 3 Est. Patient 18:20:39 CDT Prisca Lockwood MD PhD [facility]-34703 Level 3 Est. Patient 16:42:47 COMMERCIAL FRONT LOAD OPERATOR Rosalie Boyd [facility] CPT-70230 Level 3 Est. Patient 14:34:36 COMMERCIAL FRONT LOAD OPERATOR Rosalie Boyd [facility] CPT-99867 Level 4 Est. Patient 10:23:07 COMMERCIAL FRONT LOAD OPERATOR Andrei Nichols MD [facility]-47263 Level 3 Est. Patient 16:47:31 COMMERCIAL FRONT LOAD OPERATOR Andrei Nichols MD [facility]-00947 Level 3 Est. Patient 11:59:14 CDT Rosalie Boyd [facility]-01123 Level 3 Est. Patient 15:30:34 CDT Giovany URBINA [facility] CPT-82345 Level 3 Est. Patient 11:03:03 CDT Rosalie Boyd [facility]-07178 Level 3 Est. Patient 11:08:07 CDT Rosalie Oliver [facility] CPT-41628 Level 3 Est. Patient 14:07:32 CDT Andrei Nichols MD [facility]-90027 Level 3 Est. Patient 17:08:28 CDT Andrei Nichols MD [facility]-59723 Level 3 Est. Patient 13:10:13 CDT Jani Marrero MD [facility]-80979 Level 3 Est. Patient 11:27:12 CDT Jani Marrero MD [facility]-69027 Level 3 Est. Patient 13:44:42 CDT Andrei Nichols MD [facility] CPT-60523 Level 3 Est. Patient 12:34:57 COMMERCIAL FRONT LOAD OPERATOR Andrei Nichols MD [facility] CPT-35219 Level 3 Est. Patient 15:30:06 CDT Jani Marrero MD [facility] CPT-15598 Level 3 Est. Patient 21:59:00 CDT Corky Mckeon DO [facility] CPT-84189 Level 3 Est. Patient 17:12:49 CDT Andrei Nichols MD [facility] CPT-33101 Level 4 Est. Patient 12:27:45 COMMERCIAL FRONT LOAD OPERATOR Andrei Nichols MD [facility] CPT-42490 Level 3 Est. Patient 12:15:34 COMMERCIAL FRONT LOAD OPERATOR Andrei Nichols MD [facility] Procedures Code Procedure Name Date Entry Date Standard Description CPT-OV Office Visit 11:36:40 CDT CPT-88934 Administration 2+ single or combination vaccines inc oral 07:50:30 CDT CPT-96929 Administration single or combination vaccine inc oral 07 :50:30 CDT CPT-64328 Pneumovax 07:50:30 CDT CPT-50554 Influenza split virus > age 3 07:50:30 CDT CPT-OV Office Visit 11:49:10 COMMERCIAL FRONT LOAD OPERATOR CPT-54292 Nexplanon Removal with Reinsertion 14:02:06 COMMERCIAL FRONT LOAD OPERATOR CPT-J7307 Nexplanon (Implant) 14:02:06 COMMERCIAL FRONT LOAD OPERATOR CPT-OV Office Visit 14:02:06 COMMERCIAL FRONT LOAD OPERATOR CPT-OV Office Visit 11:58:04 COMMERCIAL FRONT LOAD OPERATOR CPT-27223 Administration single or combination vaccine inc oral 11 :31:07 CDT CPT-12647 Influenza split virus > age 3 11:31:07 T CPT-19764 Administration single or combination vaccine inc oral 10 :34:13 CDT CPT-19726 Influenza split virus > age 3 10:34:13 CDT
--- OUTSIDE RECORDS SUMMARY | 2017-01-02 18:43 | XMS REPORT ---
Author Author [facility] [employer] [facility] Medical Staff Organization [facility] Address [address] [place], [place] [id number] Phone [phone] Care Team Providers Care Farm Truck Driver Name Role Phone FELIPE MONROE MD PP [phone] Summary purpose TRANSITION OF CARE AUTO GENERATION [...] Value Date Respiration Rate 20breaths per minute :05 Pulse 109beats per minute :05 Oxygen Saturation 98% :05 BP Systolic 122mmHg :05 BP Diastolic 76mmHg :05 Temperature 98.6F :05 Social history Type Value Smoking Status CURRENT EVERY DAY SMOKER Treatment Plan No treatment plan text is available for this visit. Hospital discharge instructions Dismissal Condition good Disposition on DC home DC Inst/Educ Give yes Med/Side Effects Rev yes Tetanus Vac 2015
--- NOTE | 2017-01-02 18:56 | Diagnostic Imaging Report ---
INDICATION: Twisted knee. Elk a pop. EXAMINATION: Left knee 01/02/2017. FINDINGS: Three views of the knee demonstrate no evidence for acute fracture or dislocations. Joint spaces preserved. Soft tissues unremarkable with no effusions. IMPRESSION: 1. No acute process. Dictated by: Dictated on workstation # [id number]
[2017-01-02 19:18] VITALS: BP 123/82
== END 2017-01-02 19:18 | disposition home or self-care (01) ==
LOC: EDUNIT# 17:49 → ER 17:51
DX: M23.92 Unspecified internal derangement of left knee (principal); X50.0XXA Overexertion from strenuous movement or load, initial encounter
CPT/HCPCS: 73562; 96372; 99284

== ENCOUNTER 2017-01-29 17:03 | Emergency (ER) | payer MEDICAID ==
[~2017-01-29] VITALS: Ht 167.6 cm; Wt 97.1 kg
[~2017-01-29 17:03] MED LIST: HYDR-757 PO; NAPR500T PO
--- NOTE | 2017-01-29 18:00 | Diagnostic Imaging Report ---
EXAM: KNEE, LEFT, 3 VIEWS. INDICATION: Left knee pain and giving out. COMPARISON: Left knee MRI without contrast 01/12/2017. FINDINGS: No fracture or malalignment. Soft tissue shadows are unremarkable. IMPRESSION: No acute radiographic findings in the left knee. Dictated by: Dictated on workstation # [id number]
--- NOTE | 2017-01-29 18:04 | ED Lower Extremity ---
General Chief Complaint: Lower Extremity Stated Complaint: LEFT KNEE PAIN/INJ Nursing Triage Note: Patient's knee gave out while walking and turning the corner. Swelling reported. Pt has a known ACL tear that needs surgery. Nursing Sepsis Screen: No Definite Risk Source: patient Exam Limitations: no limitations History of Present Illness Time seen by provider: 18:04 Initial Comments 26 yo female patient presents to the ED with c/o left knee pain after turning a corner. Patient has a known ACL tear and is waiting for the ortho referral. Patient is wearing a hinged knee brace. Onset: this afternoon Pain/Injury Location: left knee Method of Injury: twisted Modifying Factors: Improves With Immobilization, Worse With Movement Allergies and Home Medications Allergies Coded Allergies: No Known Drug Allergies (Unverified , 01/03/16) Home Medications Hydrocodone/Acetaminophen 1 Each Tablet, 1 EACH PO Q4H PRN for PAIN-SEVERE TO BREAKTHROUGH, #10 Prescribed by: ADAM LE on 01/02/17 1833 Naproxen 500 Mg Tablet, 500 MG PO BID PRN for PAIN-MODERATE TO SEVERE, #30 Prescribed by: ADAM LE on 01/02/17 1833 Prednisone 20 Mg Tab, 40 MG PO DAILY, #10 Ref 0 Prescribed by: ALYCIA HERNANDEZ on 01/29/17 1829 Constitutional: no symptoms reported Respiratory: no symptoms reported Cardiovascular: no symptoms reported Musculoskeletal: see HPI, joint pain (left knee pain), joint swelling (left knee pain) Skin: no symptoms reported Psychiatric/Neurological: Denies Numbness, Denies Paresthesia, Denies Tingling , Denies Weakness All Other Systems Reviewed Negative Unless Noted: Yes (Negative excepted noted.) Past Mrgdmor-Cwquho-Usfqho Hx Patient Social History Alcohol Use: Denies Use Recreational Drug Use: No Type Used: Cigarettes 2nd Hand Smoke Exposure: No Recent Foreign Travel: No Contact w/Someone Who Travel: No Recent Infectious Disease Expo: No Recent Hopitalizations: No Seasonal Allergies Seasonal Allergies: No Surgeries History of Surgeries: No Respiratory History of Respiratory Disorde: No Cardiovascular History of Cardiac Disorders: Yes Cardiac Disorders: Hypertension Neurological History of Neurological Disord: No Genitourinary History of Genitourinary Disor: No Gastrointestinal History of Gastrointestinal Di: No Musculoskeletal History of Musculoskeletal Dis: No Endocrine History of Endocrine Disorders: No HEENT History of HEENT Disorders: No Cancer History of Cancer: No Psychosocial History of Psychiatric Problem: No Integumentary History of Skin or Integumenta: No Blood Transfusions History of Blood Disorders: No Adverse Reaction to a Blood Tr: No Reviewed Nursing Assessment Reviewed/Agree w Nursing PMH: Yes Family Medical History Significant Family History: No Pertinent Family Hx Physical Exam Vital Signs Vital Sign - Last 12Hours 01/29/17 17:23 Temp 97.5 Pulse 70 Resp 16 B/P (MAP) 126/82 O2 Delivery Room Air Capillary Refill : Less Than 3 Seconds General Appearance: WD/WN, no apparent distress Cardiovascular: normal peripheral pulses, no edema Hips: bilateral hip non-tender, bilateral hip normal inspection, bilateral hip normal range of motion, bilateral hip no evidence of injury Legs: bilateral leg non-tender, bilateral leg normal inspection, bilateral leg normal range of motion, bilateral leg no evidence of injury Knees: right knee non-tender, right knee normal inspection, bilateral knee no evidence of injury, left knee bone tenderness, left knee joint effusion, left knee pain, left knee soft tissue tenderness, left knee swelling Ankles: bilateral ankle non-tender, bilateral ankle normal inspection, bilateral ankle normal range of motion, bilateral ankle no evidence of injury Feet: bilateral foot non-tender, bilateral foot normal inspection, bilateral foot normal range of motion, bilateral foot no evidence of injury Neurologic/Tendon: normal sensation, normal motor functions, normal tendon functions, responds to pain, no evidence tendon injury Neurologic/Psychiatric: no motor/sensory deficits, alert, normal mood/affect, oriented x 3 Skin: normal color, warm/dry Progress/Results/Core Measures Results/Orders My Orders Orders - ALYCIA HERNANDEZ Knee, Left, 3 Views (01/29/17 17:38) Hydrocodone/Apap 10/325 Tablet (Lortab 1 (01/29/17 18:24) Vital Signs/I&O Vital Sign - Last 12Hours 01/29/17 17:23 Temp 97.5 Pulse 70 Resp 16 B/P (MAP) 126/82 O2 Delivery Room Air Blood Pressure Mean: 97 Diagnostic Imaging Diagonstic Imaging: Xray Plain Films/CT/US/NM/MRI: knee Comments EXAM: KNEE, LEFT, 3 VIEWS. INDICATION: Left knee pain and giving out. COMPARISON : Left knee MRI without contrast 01/12/2017. FINDINGS: No fracture or malalignment. Soft tissue shadows are unremarkable. IMPRESSION: No acute radiographic findings in the left knee. Dictated on workstation # [id number] Reviewed: Reviewed by Me (radiology report reviewed by me) Departure Communication (Admissions) Progress Notes Agnostic findings discussed with patient. Plan for discharge to home. Continue using current knee brace. Follow-up with [facility] to schedule orthopedic consult. Impression Impression: Primary Impression: Sprain of knee Disposition: HOME, SELF-CARE Condition: Improved Departure-Patient Inst. Decision time for Depature: 18:27 Referrals: DAVID LOAIZA DO (PCP) Primary Care Physician CRISTINO RUSH APRN (Family) Primary Care Physician Patient Instructions: Anterior Cruciate Ligament Tear (DC), Knee Sprain (DC) Add. Discharge Instructions: All discharge instructions reviewed with patient and/or family. Voiced understanding. Medications as directed. Tylenol extra strength over-the- counter as directed for pain. Ibuprofen 800 mg by mouth every 8 hours as needed for pain. Continue the knee brace as instructed by Wilma Ortega APRN. Follow-up with [facility] as an outpatient for a recheck and to schedule your appointment with the orthopedic surgeon. Return to the emergency department for worsened symptoms or any other concerns. Scripts Prednisone (Prednisone) 20 Mg Tab 40 MG PO DAILY, #10 TAB 0 Refills Prov: ALYCIA HERNANDEZ 01/29/17 ALYCIA HERNANDEZ Jan 29, 2017 18:04
[2017-01-29] MEDS ORDERED: HYDROcodone/APAP 10 MG/325 MG (LORTAB) TAB PO STA (18:24)
[2017-01-29] MEDS ORDERED: PRD20T PO (18:29)
[2017-01-29 19:13] VITALS: BP 122/80
== END 2017-01-29 19:13 | disposition home or self-care (01) ==
LOC: EDUNIT# 17:03 → ER 17:04
DX: S83.92XA Sprain of unspecified site of left knee, initial encounter (principal); I10 Essential (primary) hypertension; X50.0XXA Overexertion from strenuous movement or load, initial encounter
CPT/HCPCS: 73562; 99283